=== PATIENT | male | born 1965 | race Caucasian/White ===

== ENCOUNTER 2016-09-25 10:39 | Emergency (ER) | payer MEDICARE, OTHER ==
[~2016-09-25] VITALS: Ht 172.7 cm; Wt 114.5 kg
[~2016-09-25 10:39] MED LIST: ASPI-1093 PO; ATEN25 PO; DSS100 PO; INSU100V12 SQ; LISI-662 PO; MULT-29 PO; OMEG1CAP76 PO; OMEP20 PO; PERCT PO; VITAD1000 PO
[2016-09-25] MEDS ORDERED: SITA25 PO (10:42)
[2016-09-25] MEDS ORDERED: METF500T4 PO (10:42)
[2016-09-25 10:51] LABS: GLUCOSE,POINT OF CARE 97 MG/DL (70-110)
[2016-09-25 11:13] LABS: BASOPHILS % (AUTO) 0.2 % (0.0-2.0); HEMOGLOBIN 13.1 g/dL (13.5-17.5); LYMPHOCYTES # (AUTO) 1.5 K/uL (1.0-4.8); LYMPHOCYTES % (AUTO) 17.3 % (22.0-44.0); MEAN CORPUSCULAR HEMOGLOBIN 31.3 pg (26.0-34.0); MEAN CORPUSCULAR HGB CONC 32.7 G/dL (31.0-37.0); MEAN CORPUSCULAR VOLUME 96 fL (80-100); MONOCYTES # (AUTO) 1.1 K/uL (0.1-1.0); MONOCYTES % (AUTO) 12.6 % (2.0-9.0); NEUTROPHILS # (AUTO) 5.9 K/uL (1.8-7.7); NEUTROPHILS % (AUTO) 66.9 % (40.0-70.0); PLATELET COUNT (AUTO) 241 K/uL (150-450); RED BLOOD CELL COUNT(AUTO) 4.18 MIL/uL (4.50-5.90); RED CELL DISTRIBUTION WIDTH 14.5 % (11.5-14.5); WHITE BLOOD COUNT (AUTO) 8.8 K/uL (4.5-11.0)
[2016-09-25 11:21] LABS: ANION GAP 9 mmol/L (8-16); CARBON DIOXIDE 28 mmol/L (22-29); CHLORIDE 101 mmol/L (98-107); CREATININE 0.68 mg/dL (0.60-1.30); POTASSIUM 4.1 mmol/L (3.5-5.1); SODIUM SERUM 138 mmol/L (136-145); UREA NITROGEN, BLOOD 12 mg/dL (7-18)
[2016-09-25 11:22] LABS: GLOMERULAR FILTR. RATE CALC > 60 mL/min (>60)
[2016-09-25 11:27] LABS: ALANINE AMINOTRANSFERASE 58 U/L (12-78); ALBUMIN 3.7 g/dL (3.4-5.0); ASPARTATE AMINOTRANSFERASE 33 U/L (15-37); BILIRUBIN,TOTAL 0.4 mg/dL (0.1-1.0); TOTAL PROTEIN, SERUM 9.7 g/dL (6.4-8.2)
[2016-09-25 11:49] VITALS: BP 128/78
== END 2016-09-25 12:25 | disposition home or self-care (01) ==
LOC: EMS 10:41
DX: K61.1 Rectal abscess (principal); F31.9 Bipolar disorder, unspecified; F17.210 Nicotine dependence, cigarettes, uncomplicated; I10 Essential (primary) hypertension; F20.9 Schizophrenia, unspecified; E78.00 Pure hypercholesterolemia, unspecified; E11.9 Type 2 diabetes mellitus without complications; J44.9 Chronic obstructive pulmonary disease, unspecified
CPT/HCPCS: 36415; 80053; 80307; 82962; 85025; 99284; G0480

== ENCOUNTER 2017-02-12 17:43 | Emergency (ER) | payer MEDICARE, OTHER ==
[~2017-02-12] VITALS: Ht 172.7 cm; Wt 111.8 kg
[~2017-02-12 17:43] MED LIST changes: -ASPI-1093 PO; -INSU100V12 SQ; +METF500T4 PO; -MULT-29 PO; -OMEG1CAP76 PO; -PERCT PO; +SITA25 PO; -VITAD1000 PO
[2017-02-12] MEDS ORDERED: ATOR10TA84 PO (17:47)
[2017-02-12] MEDS ORDERED: FLUP10 PO (17:47)
[2017-02-12] MEDS ORDERED: QUET200T PO (17:48)
[2017-02-12 17:57] LABS: GLUCOSE,POINT OF CARE 94 MG/DL (70-110)
[2017-02-12 18:13] LABS: BASOPHILS % (AUTO) 0.3 % (0.0-2.0); EOSINOPHILS % (AUTO) 5.9 % (1.0-6.0); HEMATOCRIT 36.1 % (41-53); HEMOGLOBIN 12.1 g/dL (13.5-17.5); LYMPHOCYTES # (AUTO) 1.6 K/uL (1.0-4.8); LYMPHOCYTES % (AUTO) 27.4 % (22.0-44.0); MEAN CORPUSCULAR HEMOGLOBIN 31.1 pg (26.0-34.0); MEAN CORPUSCULAR HGB CONC 33.5 G/dL (31.0-37.0); MEAN CORPUSCULAR VOLUME 93 fL (80-100); MONOCYTES # (AUTO) 0.9 K/uL (0.1-1.0); MONOCYTES % (AUTO) 16.3 % (2.0-9.0); NEUTROPHILS # (AUTO) 2.9 K/uL (1.8-7.7); NEUTROPHILS % (AUTO) 50.1 % (40.0-70.0); PLATELET COUNT (AUTO) 115 K/uL (150-450); RED BLOOD CELL COUNT(AUTO) 3.89 MIL/uL (4.50-5.90); RED CELL DISTRIBUTION WIDTH 14.2 % (11.5-14.5); WHITE BLOOD COUNT (AUTO) 5.7 K/uL (4.5-11.0)
[2017-02-12 18:23] LABS: ANION GAP 7 mmol/L (8-16); CALCIUM, TOTAL 8.4 mg/dL (8.8-10.5); CARBON DIOXIDE 28 mmol/L (22-29); CHLORIDE 106 mmol/L (98-107); CREATININE 0.72 mg/dL (0.60-1.30); GLOMERULAR FILTR. RATE CALC > 60 mL/min (>60); POTASSIUM 3.8 mmol/L (3.5-5.1); SODIUM SERUM 141 mmol/L (136-145); UREA NITROGEN, BLOOD 9 mg/dL (7-18)
[2017-02-12 18:29] LABS: ALANINE AMINOTRANSFERASE 31 U/L (12-78); ALBUMIN 3.6 g/dL (3.4-5.0); ASPARTATE AMINOTRANSFERASE 27 U/L (15-37); BILIRUBIN,TOTAL 0.3 mg/dL (0.1-1.0); TOTAL PROTEIN, SERUM 7.6 g/dL (6.4-8.2)
[2017-02-12 22:49] VITALS: BP 125/82
== END 2017-02-12 22:51 | disposition home or self-care (01) ==
LOC: EMS 17:46
DX: F41.9 Anxiety disorder, unspecified (principal); F25.9 Schizoaffective disorder, unspecified; F20.0 Paranoid schizophrenia; E11.9 Type 2 diabetes mellitus without complications; F31.9 Bipolar disorder, unspecified; J44.9 Chronic obstructive pulmonary disease, unspecified; E78.00 Pure hypercholesterolemia, unspecified; I10 Essential (primary) hypertension; F17.210 Nicotine dependence, cigarettes, uncomplicated; E66.9 Obesity, unspecified; Z68.37 Body mass index [BMI] 37.0-37.9, adult; Z76.0 Encounter for issue of repeat prescription
CPT/HCPCS: 36415; 80053; 80307; 82962; 85025; 99284; G0480

== ENCOUNTER 2017-02-26 02:55 | Emergency (ER) | payer MEDICARE, OTHER ==
[~2017-02-26] VITALS: Ht 172.7 cm; Wt 111.5 kg
[~2017-02-26 02:55] MED LIST changes: -ATEN25 PO; +ATOR10TA84 PO; +FLUP10 PO; -LISI-662 PO; +QUET200T PO; -SITA25 PO
[2017-02-26 03:12] LABS: GLUCOSE,POINT OF CARE 122 MG/DL (70-110)
[2017-02-26 03:34] LABS: BASOPHILS % (AUTO) 0.4 % (0.0-2.0); EOSINOPHILS % (AUTO) 10.1 % (1.0-6.0); HEMATOCRIT 33.5 % (41-53); HEMOGLOBIN 11.5 g/dL (13.5-17.5); LYMPHOCYTES # (AUTO) 1.1 K/uL (1.0-4.8); LYMPHOCYTES % (AUTO) 20.2 % (22.0-44.0); MEAN CORPUSCULAR HEMOGLOBIN 32.1 pg (26.0-34.0); MEAN CORPUSCULAR HGB CONC 34.3 G/dL (31.0-37.0); MEAN CORPUSCULAR VOLUME 94 fL (80-100); MONOCYTES # (AUTO) 0.9 K/uL (0.1-1.0); MONOCYTES % (AUTO) 15.3 % (2.0-9.0); PLATELET COUNT (AUTO) 111 K/uL (150-450); RED BLOOD CELL COUNT(AUTO) 3.58 MIL/uL (4.50-5.90); RED CELL DISTRIBUTION WIDTH 14.7 % (11.5-14.5); WHITE BLOOD COUNT (AUTO) 5.6 K/uL (4.5-11.0)
[2017-02-26 03:47] LABS: ANION GAP 10 mmol/L (8-16); CALCIUM, TOTAL 9.1 mg/dL (8.8-10.5); CARBON DIOXIDE 29 mmol/L (22-29); CHLORIDE 100 mmol/L (98-107); CREATININE 0.79 mg/dL (0.60-1.30); GLOMERULAR FILTR. RATE CALC > 60 mL/min (>60); POTASSIUM 4.1 mmol/L (3.5-5.1); SODIUM SERUM 139 mmol/L (136-145); UREA NITROGEN, BLOOD 8 mg/dL (7-18)
[2017-02-26 03:52] LABS: ALANINE AMINOTRANSFERASE 42 U/L (12-78); ALBUMIN 3.3 g/dL (3.4-5.0); ASPARTATE AMINOTRANSFERASE 25 U/L (15-37); BILIRUBIN,TOTAL 0.2 mg/dL (0.1-1.0); TOTAL PROTEIN, SERUM 7.7 g/dL (6.4-8.2)
[2017-02-26 05:24] VITALS: BP 116/72
== END 2017-02-26 05:53 | disposition home or self-care (01) ==
LOC: EMS 02:57
DX: G47.30 Sleep apnea, unspecified (principal); I10 Essential (primary) hypertension; F20.9 Schizophrenia, unspecified; E03.9 Hypothyroidism, unspecified; E11.9 Type 2 diabetes mellitus without complications; J44.9 Chronic obstructive pulmonary disease, unspecified; F32.9 Major depressive disorder, single episode, unspecified; F17.210 Nicotine dependence, cigarettes, uncomplicated; E66.9 Obesity, unspecified; E78.00 Pure hypercholesterolemia, unspecified
CPT/HCPCS: 36415; 71010; 80053; 82962; 84484; 85025; 93005; 99285; G0480

== ENCOUNTER 2017-04-05 14:20 | Inpatient (IN) | payer OTHER, MEDICAID ==
[~2017-04-05] VITALS: Ht 175.3 cm; Wt 109.0 kg
[2017-04-05] MEDS ORDERED: DIVA250T25 PO (14:30)
[2017-04-05] MEDS ORDERED: PANT40TA25 PO (14:30)
[2017-04-05] MEDS ORDERED: LISI-662 PO (14:30)
[2017-04-05] MEDS ORDERED: IBUP-2071 PO (14:30)
[2017-04-05] MEDS ORDERED: DOCU250C90 PO (14:30)
[2017-04-05] MEDS ORDERED: TRAZ-147 PO (14:30)
[2017-04-05 14:32] LABS: GLUCOSE,POINT OF CARE 169 MG/DL (70-110)
[2017-04-05 15:23] LABS: BASOPHILS % (AUTO) 0.6 % (0.0-2.0); EOSINOPHILS % (AUTO) 3.1 % (1.0-6.0); HEMATOCRIT 34.7 % (41-53); LYMPHOCYTES # (AUTO) 1.5 K/uL (1.0-4.8); LYMPHOCYTES % (AUTO) 21.1 % (22.0-44.0); MEAN CORPUSCULAR HEMOGLOBIN 32.7 pg (26.0-34.0); MEAN CORPUSCULAR HGB CONC 34.6 G/dL (31.0-37.0); MEAN CORPUSCULAR VOLUME 94 fL (80-100); MONOCYTES % (AUTO) 13.9 % (2.0-9.0); NEUTROPHILS # (AUTO) 4.5 K/uL (1.8-7.7); NEUTROPHILS % (AUTO) 61.3 % (40.0-70.0); PLATELET COUNT (AUTO) 198 K/uL (150-450); RED BLOOD CELL COUNT(AUTO) 3.67 MIL/uL (4.50-5.90); RED CELL DISTRIBUTION WIDTH 14.8 % (11.5-14.5); WHITE BLOOD COUNT (AUTO) 7.3 K/uL (4.5-11.0)
[2017-04-05 15:27] LABS: ANION GAP 11 mmol/L (8-16); CALCIUM, TOTAL 8.7 mg/dL (8.8-10.5); CARBON DIOXIDE 26 mmol/L (22-29); CHLORIDE 104 mmol/L (98-107); CREATININE 0.92 mg/dL (0.60-1.30); GLOMERULAR FILTR. RATE CALC > 60 mL/min (>60); POTASSIUM 3.9 mmol/L (3.5-5.1); SODIUM SERUM 141 mmol/L (136-145); UREA NITROGEN, BLOOD 17 mg/dL (7-18)
[2017-04-05 15:34] LABS: ALANINE AMINOTRANSFERASE 30 U/L (12-78); ALBUMIN 3.6 g/dL (3.4-5.0); ASPARTATE AMINOTRANSFERASE 20 U/L (15-37); BILIRUBIN,TOTAL 0.4 mg/dL (0.1-1.0); TOTAL PROTEIN, SERUM 8.4 g/dL (6.4-8.2); VALPROIC ACID 62 mcg/mL (50-100)
[2017-04-05] MEDS ORDERED: LORazepam 2 MG/ML VIAL IM ONE (17:00)
[2017-04-05] MEDS ORDERED: HALOPERIDOL LACTATE 5 MG/ML VIAL IM ONE (17:00)
[2017-04-05] MEDS ORDERED: DiphenhydrAMINE HCL 50 MG/ML VIAL IM ONE (17:00)
[2017-04-05 19:44] LABS: CHOL/HDL RATIO 3.2 (4.2-7.3); THYROID STIMULATING HORMONE 1.91 uIU/mL (0.36-3.74)
[2017-04-05] MEDS ORDERED: INFLUENZA VIRUS VACCINE QVS 2017-18 (3YR+)/PF 60 MCG/0.5 ML SYRINGE IM ONE (20:15)
[2017-04-05 20:16] VITALS: BP 139/89
[2017-04-05] MEDS ORDERED: DEXTROSE 50%-WATER 25 GM/50 ML SYRINGE IVP PRN (20:45)
[2017-04-05] MEDS: QUEtiapine FUMARATE 200 MG TABLET PO SCH (20:48)
[2017-04-05] MEDS: DIVALPROEX SODIUM 500 MG DR TABLET PO SCH (20:48)
[2017-04-05] MEDS: INSULIN ASPART 100 UNITS/ML SQ PRN (22:06)
[2017-04-05 22:12] LABS: GLUCOSE,POINT OF CARE 153 MG/DL (70-110)
[2017-04-06] MEDS: ZOLPIDEM TARTRATE 10 MG TABLET PO PRN (00:54)
[2017-04-06 01:06] VITALS: BP 114/71
[2017-04-06 06:33] LABS: GLUCOSE,POINT OF CARE 119 MG/DL (70-110)
[2017-04-06] MEDS: INSULIN ASPART 100 UNITS/ML SQ PRN (06:43)
[2017-04-06] MEDS: MetFORMIN HCL 500 MG TABLET PO SCH ×2 (06:54→17:20)
[2017-04-06] MEDS ORDERED: LOPERAMIDE HCL 2 MG CAPSULE PO PRN (07:45)
[2017-04-06] MEDS ORDERED: ONDANSETRON HCL 4 MG TABLET PO PRN (07:45)
[2017-04-06] MEDS ORDERED: ALBUTEROL SULFATE HFA 90 MCG/PUFF 8 GM INHALER IH PRN (07:45)
[2017-04-06] MEDS ORDERED: MAG HYDROX/AL HYDROX/SIMETH ES 30 ML SUSPENSION UDCUP PO PRN (07:45)
[2017-04-06] MEDS ORDERED: BENZOCAINE/MENTHOL LOZENGE MM PRN (07:45)
[2017-04-06] MEDS ORDERED: ACETAMINOPHEN 325 MG TABLET PO PRN (07:45)
[2017-04-06] MEDS ORDERED: BACITRACIN 28.4 GM OINTMENT TP PRN (07:45)
[2017-04-06] MEDS ORDERED: PETROLATUM,WHITE 71 GM JELLY TP PRN (07:45)
[2017-04-06] MEDS ORDERED: MAGNESIUM HYDROXIDE SUSPENSION 30 ML UDCUP PO PRN (07:45)
[2017-04-06] MEDS ORDERED: CloNIDine HCL 0.1 MG TABLET PO PRN (07:45)
[2017-04-06] MEDS ORDERED: IBUPROFEN 600 MG TABLET PO PRN (07:45)
[2017-04-06 08:38] VITALS: BP 120/70
[2017-04-06] MEDS: DOCUSATE SODIUM 250 MG CAPSULE PO SCH (08:38)
[2017-04-06] MEDS: LISINOPRIL 20 MG TABLET PO SCH (08:38)
[2017-04-06] MEDS: PANTOPRAZOLE SODIUM 40 MG DR TABLET PO SCH (08:38)
[2017-04-06] MEDS: DIVALPROEX SODIUM 500 MG DR TABLET PO SCH ×2 (08:38→21:21)
[2017-04-06] MEDS: ATORVASTATIN CALCIUM 10 MG TABLET PO SCH (08:39)
[2017-04-06] MEDS: HALOPERIDOL 5 MG TABLET PO PRN ×2 (08:39→16:06)
[2017-04-06] MEDS: LORazepam 2 MG TABLET PO PRN ×2 (08:39→16:06)
[2017-04-06 11:52] LABS: GLUCOSE,POINT OF CARE 81 MG/DL (70-110)
[2017-04-06 16:12] LABS: GLUCOSE,POINT OF CARE 94 MG/DL (70-110)
[2017-04-06 16:21] VITALS: BP 110/72
[2017-04-06 20:58] LABS: GLUCOSE,POINT OF CARE 129 MG/DL (70-110)
[2017-04-06] MEDS: QUEtiapine FUMARATE 200 MG TABLET PO SCH (21:21)
[2017-04-07 06:38] LABS: GLUCOSE,POINT OF CARE 103 MG/DL (70-110)
[2017-04-07] MEDS: MetFORMIN HCL 500 MG TABLET PO SCH ×2 (07:09→17:19)
[2017-04-07 08:00] VITALS: BP 145/96
[2017-04-07] MEDS: ATORVASTATIN CALCIUM 10 MG TABLET PO SCH (08:08)
[2017-04-07] MEDS: PANTOPRAZOLE SODIUM 40 MG DR TABLET PO SCH (08:08)
[2017-04-07] MEDS: LISINOPRIL 20 MG TABLET PO SCH (08:08)
[2017-04-07] MEDS: DOCUSATE SODIUM 250 MG CAPSULE PO SCH (08:08)
[2017-04-07] MEDS: DIVALPROEX SODIUM 500 MG DR TABLET PO SCH ×2 (08:08→20:11)
[2017-04-07 11:48] LABS: GLUCOSE,POINT OF CARE 111 MG/DL (70-110)
[2017-04-07 17:12] LABS: GLUCOSE,POINT OF CARE 108 MG/DL (70-110)
[2017-04-07] MEDS: PALIPERIDONE 6 MG ER TABLET PO SCH (20:12)
[2017-04-07 20:25] VITALS: BP 136/86
[2017-04-07] MEDS: ZOLPIDEM TARTRATE 10 MG TABLET PO PRN (20:53)
[2017-04-08] MEDS: LORazepam 2 MG TABLET PO PRN (01:04)
[2017-04-08] MEDS: HALOPERIDOL 5 MG TABLET PO PRN (01:04)
[2017-04-08 05:53] LABS: GLUCOSE,POINT OF CARE 104 MG/DL (70-110)
[2017-04-08 05:57] VITALS: BP 109/64
[2017-04-08] MEDS: MetFORMIN HCL 500 MG TABLET PO SCH ×2 (06:56→18:49)
[2017-04-08] MEDS: DIVALPROEX SODIUM 500 MG DR TABLET PO SCH ×2 (08:06→21:02)
[2017-04-08] MEDS: ATORVASTATIN CALCIUM 10 MG TABLET PO SCH (08:06)
[2017-04-08] MEDS: DOCUSATE SODIUM 250 MG CAPSULE PO SCH (08:06)
[2017-04-08] MEDS: PANTOPRAZOLE SODIUM 40 MG DR TABLET PO SCH (08:06)
[2017-04-08] MEDS: LISINOPRIL 20 MG TABLET PO SCH (08:06)
[2017-04-08 08:31] VITALS: BP 127/78
[2017-04-08 11:52] LABS: GLUCOSE,POINT OF CARE 166 MG/DL (70-110)
[2017-04-08] MEDS: INSULIN ASPART 100 UNITS/ML SQ PRN (11:52)
[2017-04-08 16:00] VITALS: BP 121/78
[2017-04-08 16:48] LABS: GLUCOSE,POINT OF CARE 134 MG/DL (70-110)
[2017-04-08] MEDS: PALIPERIDONE 6 MG ER TABLET PO SCH (21:02)
[2017-04-08 21:23] LABS: GLUCOSE,POINT OF CARE 98 MG/DL (70-110)
[2017-04-09 06:02] LABS: GLUCOSE,POINT OF CARE 110 MG/DL (70-110)
[2017-04-09] MEDS: MetFORMIN HCL 500 MG TABLET PO SCH ×2 (06:33→17:04)
[2017-04-09 07:06] VITALS: BP 123/74
[2017-04-09] MEDS: DOCUSATE SODIUM 250 MG CAPSULE PO SCH (08:17)
[2017-04-09] MEDS: PALIPERIDONE 6 MG ER TABLET PO SCH (08:17)
[2017-04-09] MEDS: ATORVASTATIN CALCIUM 10 MG TABLET PO SCH (08:17)
[2017-04-09] MEDS: PANTOPRAZOLE SODIUM 40 MG DR TABLET PO SCH (08:17)
[2017-04-09] MEDS: LISINOPRIL 20 MG TABLET PO SCH (08:17)
[2017-04-09] MEDS: DIVALPROEX SODIUM 500 MG DR TABLET PO SCH ×2 (08:18→20:16)
[2017-04-09 08:37] VITALS: BP 146/80
[2017-04-09 12:02] LABS: GLUCOSE,POINT OF CARE 120 MG/DL (70-110)
[2017-04-09] MEDS: PALIPERIDONE PALMITATE 234 MG/1.5 ML SYRINGE IM SCH ×2 (16:16→16:19)
[2017-04-09 16:17] LABS: GLUCOSE,POINT OF CARE 135 MG/DL (70-110)
[2017-04-09 16:30] VITALS: BP 126/72
[2017-04-09 20:03] LABS: GLUCOSE,POINT OF CARE 142 MG/DL (70-110)
[2017-04-09] MEDS: INSULIN ASPART 100 UNITS/ML SQ PRN (20:17)
[2017-04-10 04:26] VITALS: BP 119/69
[2017-04-10 06:03] LABS: GLUCOSE,POINT OF CARE 116 MG/DL (70-110)
[2017-04-10] MEDS: INSULIN ASPART 100 UNITS/ML SQ PRN (06:45)
[2017-04-10] MEDS: MetFORMIN HCL 500 MG TABLET PO SCH ×2 (06:47→16:40)
[2017-04-10] MEDS: LISINOPRIL 20 MG TABLET PO SCH (08:08)
[2017-04-10] MEDS: DOCUSATE SODIUM 250 MG CAPSULE PO SCH (08:08)
[2017-04-10] MEDS: DIVALPROEX SODIUM 500 MG DR TABLET PO SCH (08:09)
[2017-04-10] MEDS: ATORVASTATIN CALCIUM 10 MG TABLET PO SCH (08:09)
[2017-04-10] MEDS: PANTOPRAZOLE SODIUM 40 MG DR TABLET PO SCH (08:09)
[2017-04-10 08:30] VITALS: BP 129/77
[2017-04-10] MEDS ORDERED: PALI234D IM (10:32)
[2017-04-10] MEDS ORDERED: PALI6 PO (10:41)
[2017-04-10 11:58] LABS: GLUCOSE,POINT OF CARE 103 MG/DL (70-110)
[2017-04-10 17:48] LABS: GLUCOSE,POINT OF CARE 110 MG/DL (70-110)
== END 2017-04-10 18:00 | disposition home or self-care (01) | DRG 885 ==
LOC: EMS 14:21 → 3EC 17:38
PROVIDERS: ADMIT Psychiatry & Neurology Psychiatry; ATTEND Psychiatry & Neurology Psychiatry
DX: F25.9 Schizoaffective disorder, unspecified (principal); R45.851 Suicidal ideations; F22 Delusional disorders; K74.60 Unspecified cirrhosis of liver; E11.9 Type 2 diabetes mellitus without complications; R45.850 Homicidal ideations; E03.9 Hypothyroidism, unspecified; D64.9 Anemia, unspecified; E55.9 Vitamin D deficiency, unspecified; E66.9 Obesity, unspecified; E78.5 Hyperlipidemia, unspecified; F17.200 Nicotine dependence, unspecified, uncomplicated; G47.33 Obstructive sleep apnea (adult) (pediatric); K80.20 Calculus of gallbladder without cholecystitis without obstruction; K21.9 Gastro-esophageal reflux disease without esophagitis; J44.9 Chronic obstructive pulmonary disease, unspecified; I10 Essential (primary) hypertension; Z71.6 Tobacco abuse counseling; Z79.1 Long term (current) use of non-steroidal anti-inflammatories (NSAID); Z68.35 Body mass index [BMI] 35.0-35.9, adult; Z28.21 Immunization not carried out because of patient refusal; Z79.51 Long term (current) use of inhaled steroids; Z79.84 Long term (current) use of oral hypoglycemic drugs
CPT/HCPCS: 82962; 84439; 84443; 94660; 96372; 99285; G0480; J1200; J1630; J2060

== ENCOUNTER 2017-04-23 12:23 | Inpatient (IN) | payer MEDICARE, MEDICAID ==
[~2017-04-23 12:23] MED LIST changes: +DIVA250T25 PO; +DOCU250C90 PO; -DSS100 PO; -FLUP10 PO; +LISI-662 PO; -OMEP20 PO; +PALI234D IM; +PANT40TA25 PO; -QUET200T PO
[2017-04-23 12:30] VITALS: BP 111/57
[2017-04-23] MEDS ORDERED: HALOPERIDOL 5 MG TABLET PO PRN (13:00)
[2017-04-23] MEDS ORDERED: LORazepam 2 MG TABLET PO PRN (13:00)
[2017-04-23] MEDS ORDERED: PNEUMOCOCCAL VACCINE POLYVALENT 0.5 ML VIAL [PPSV23] IM ONE (13:30)
[2017-04-23 14:43] VITALS: BP 119/73
[2017-04-23] MEDS ORDERED: DIVA500T35 PO (16:25)
[2017-04-23 16:31] VITALS: BP 121/76
[2017-04-23] MEDS ORDERED: INFLUENZA VIRUS VACCINE QVS 2017-18 (3YR+)/PF 60 MCG/0.5 ML SYRINGE IM ONE (17:15)
[2017-04-23] MEDS: BENZTROPINE MESYLATE 1 MG TABLET PO SCH (17:23)
[2017-04-23] MEDS: PROPRANOLOL HCL 10 MG TABLET PO SCH (17:23)
[2017-04-23] MEDS: ZOLPIDEM TARTRATE 10 MG TABLET PO PRN (20:42)
[2017-04-23] MEDS: DIVALPROEX SODIUM 500 MG DR TABLET PO SCH (20:42)
[2017-04-24 06:30] VITALS: BP 116/79
[2017-04-24 07:16] LABS: BASOPHILS # (AUTO) 0.04 K/uL (0.00-0.20); BASOPHILS % (AUTO) 0.5 % (0.0-2.0); EOSINOPHILS # (AUTO) 0.33 K/uL (0.00-0.70); EOSINOPHILS % (AUTO) 5.01 % (1.0-6.0); HEMATOCRIT 33.7 % (41-53); HEMOGLOBIN 11.7 g/dL (13.5-17.5); LYMPHOCYTES # (AUTO) 1.7 K/uL (1.0-4.8); LYMPHOCYTES % (AUTO) 25.5 % (22.0-44.0); MEAN CORPUSCULAR HEMOGLOBIN 32.8 pg (26.0-34.0); MEAN CORPUSCULAR HGB CONC 34.7 G/dL (31.0-37.0); MEAN CORPUSCULAR VOLUME 94 fL (80-100); MONOCYTES # (AUTO) 0.8 K/uL (0.1-1.0); NEUTROPHILS # (AUTO) 3.8 K/uL (1.8-7.7); PLATELET COUNT (AUTO) 135 K/uL (150-450); RED BLOOD CELL COUNT(AUTO) 3.57 MIL/uL (4.50-5.90); RED CELL DISTRIBUTION WIDTH 14.9 % (11.5-14.5); WHITE BLOOD COUNT (AUTO) 6.7 K/uL (4.5-11.0)
[2017-04-24] MEDS ORDERED: DEXTROSE 50%-WATER 25 GM/50 ML SYRINGE IVP PRN (07:30)
[2017-04-24] MEDS ORDERED: ONDANSETRON HCL 4 MG TABLET PO PRN (07:30)
[2017-04-24] MEDS ORDERED: INSULIN ASPART 100 UNITS/ML SQ PRN (07:30)
[2017-04-24] MEDS ORDERED: CloNIDine HCL 0.1 MG TABLET PO PRN (07:30)
[2017-04-24] MEDS ORDERED: PETROLATUM,WHITE 71 GM JELLY TP PRN (07:30)
[2017-04-24] MEDS ORDERED: BENZOCAINE/MENTHOL LOZENGE MM PRN (07:30)
[2017-04-24] MEDS ORDERED: ACETAMINOPHEN 325 MG TABLET PO PRN (07:30)
[2017-04-24] MEDS ORDERED: IBUPROFEN 600 MG TABLET PO PRN (07:30)
[2017-04-24] MEDS ORDERED: MAGNESIUM HYDROXIDE SUSPENSION 30 ML UDCUP PO PRN (07:30)
[2017-04-24] MEDS ORDERED: BACITRACIN 28.4 GM OINTMENT TP PRN (07:30)
[2017-04-24] MEDS ORDERED: LOPERAMIDE HCL 2 MG CAPSULE PO PRN (07:30)
[2017-04-24] MEDS ORDERED: MAG HYDROX/AL HYDROX/SIMETH ES 30 ML SUSPENSION UDCUP PO PRN (07:30)
[2017-04-24] MEDS ORDERED: ALBUTEROL SULFATE HFA 90 MCG/PUFF 8 GM INHALER IH PRN (07:30)
[2017-04-24 07:40] LABS: ALANINE AMINOTRANSFERASE 50 U/L (12-78); ALBUMIN 3.4 g/dL (3.4-5.0); ANION GAP 7 mmol/L (8-16); ASPARTATE AMINOTRANSFERASE 24 U/L (15-37); BILIRUBIN,TOTAL 0.6 mg/dL (0.1-1.0); CALCIUM, TOTAL 8.6 mg/dL (8.8-10.5); CARBON DIOXIDE 28 mmol/L (22-29); CHLORIDE 100 mmol/L (98-107); CHOL/HDL RATIO 3.4 (4.2-7.3); CREATININE 0.73 mg/dL (0.60-1.30); GLOMERULAR FILTR. RATE CALC > 60 mL/min (>60); POTASSIUM 4.4 mmol/L (3.5-5.1); SODIUM SERUM 135 mmol/L (136-145); THYROID STIMULATING HORMONE 1.52 uIU/mL (0.36-3.74); TOTAL PROTEIN, SERUM 7.6 g/dL (6.4-8.2); UREA NITROGEN, BLOOD 17 mg/dL (7-18); VALPROIC ACID 44 mcg/mL (50-100)
[2017-04-24 08:30] VITALS: BP 130/66
[2017-04-24] MEDS: CHOLECALCIFEROL (VIT D3) 1,000 UNITS TABLET PO SCH (08:39)
[2017-04-24] MEDS: BENZTROPINE MESYLATE 1 MG TABLET PO SCH ×2 (08:39→16:37)
[2017-04-24] MEDS: DIVALPROEX SODIUM 500 MG DR TABLET PO SCH ×2 (08:40→21:00)
[2017-04-24] MEDS: MetFORMIN HCL 500 MG TABLET PO SCH ×2 (08:40→16:37)
[2017-04-24] MEDS: DOCUSATE SODIUM 100 MG CAPSULE PO SCH (08:40)
[2017-04-24] MEDS: PROPRANOLOL HCL 10 MG TABLET PO SCH ×3 (08:40→16:36)
[2017-04-24] MEDS: OMEPRAZOLE 20 MG CAPSULE PO SCH (08:40)
[2017-04-24 17:30] VITALS: BP 130/61
[2017-04-24 18:12] LABS: GLUCOSE,POINT OF CARE 117 MG/DL (70-110)
[2017-04-24] MEDS ORDERED: BENZOCAINE/MENTHOL LOZENGE [8 LOZENGES/PACKET] MM PRN (21:15)
[2017-04-24 21:16] LABS: ADD UA MICROSCOPIC NO; APPEARANCE,URINE CLEAR (CLEAR); GLUCOSE, URINE (UA) NEGATIVE (NEGATIVE); KETONES,URINE NEGATIVE (NEGATIVE); LEUKOCYTE ESTERASE ,URINE NEGATIVE (NEGATIVE); OCCULT BLOOD,URINE NEGATIVE (NEGATIVE); PROTEIN,URINE NEGATIVE (NEGATIVE)
[2017-04-24] MEDS: ZOLPIDEM TARTRATE 10 MG TABLET PO PRN (21:56)
[2017-04-25 04:25] VITALS: BP 106/69
[2017-04-25 06:08] LABS: GLUCOSE,POINT OF CARE 102 MG/DL (70-110)
[2017-04-25 06:08] LABS: GLUCOSE,POINT OF CARE 86 MG/DL (70-110)
[2017-04-25] MEDS: MetFORMIN HCL 500 MG TABLET PO SCH ×2 (07:13→17:24)
[2017-04-25 08:00] VITALS: BP 125/69
[2017-04-25] MEDS: PROPRANOLOL HCL 10 MG TABLET PO SCH ×3 (08:50→17:24)
[2017-04-25] MEDS: DOCUSATE SODIUM 100 MG CAPSULE PO SCH (08:50)
[2017-04-25] MEDS: DIVALPROEX SODIUM 500 MG DR TABLET PO SCH ×2 (08:50→21:57)
[2017-04-25] MEDS: BENZTROPINE MESYLATE 1 MG TABLET PO SCH ×2 (08:50→17:24)
[2017-04-25] MEDS: OMEPRAZOLE 20 MG CAPSULE PO SCH (08:51)
[2017-04-25] MEDS: CHOLECALCIFEROL (VIT D3) 1,000 UNITS TABLET PO SCH (08:51)
[2017-04-25 16:30] VITALS: BP 121/79
[2017-04-25 17:17] LABS: GLUCOSE,POINT OF CARE 126 MG/DL (70-110)
[2017-04-25] MEDS: ZOLPIDEM TARTRATE 10 MG TABLET PO PRN (21:57)
[2017-04-26 06:35] LABS: GLUCOSE,POINT OF CARE 140 MG/DL (70-110)
[2017-04-26] MEDS: MetFORMIN HCL 500 MG TABLET PO SCH (06:58)
[2017-04-26 07:40] LABS: CHOL/HDL RATIO 3.1 (4.2-7.3); THYROID STIMULATING HORMONE 2.94 uIU/mL (0.36-3.74)
[2017-04-26] MEDS: PROPRANOLOL HCL 10 MG TABLET PO SCH ×2 (08:58→12:33)
[2017-04-26] MEDS: DOCUSATE SODIUM 100 MG CAPSULE PO SCH (08:58)
[2017-04-26] MEDS: CHOLECALCIFEROL (VIT D3) 1,000 UNITS TABLET PO SCH (08:58)
[2017-04-26] MEDS: BENZTROPINE MESYLATE 1 MG TABLET PO SCH (08:58)
[2017-04-26] MEDS: DIVALPROEX SODIUM 500 MG DR TABLET PO SCH (08:58)
[2017-04-26] MEDS: OMEPRAZOLE 20 MG CAPSULE PO SCH (08:58)
[2017-04-26] MEDS ORDERED: BENZ1TAB10 PO (10:18)
[2017-04-26] MEDS ORDERED: DSS100 PO (10:22)
[2017-04-26] MEDS ORDERED: VITAD1000 PO (10:22)
[2017-04-26] MEDS ORDERED: OMEP20 PO (10:22)
[2017-04-26] MEDS ORDERED: PROP10TA73 PO (10:23)
[2017-05-07] MEDS ORDERED: PALIPERIDONE PALMITATE 234 MG/1.5 ML SYRINGE IM SCH (09:00)
== END 2017-04-26 14:56 | disposition home or self-care (01) | DRG 885 ==
LOC: EDSTATUS 12:23 → 3EX 13:03
PROVIDERS: ADMIT Psychiatry & Neurology Psychiatry; ATTEND Psychiatry & Neurology Psychiatry
DX: F25.1 Schizoaffective disorder, depressive type (principal); E11.65 Type 2 diabetes mellitus with hyperglycemia; R45.851 Suicidal ideations; E55.9 Vitamin D deficiency, unspecified; E78.5 Hyperlipidemia, unspecified; F17.200 Nicotine dependence, unspecified, uncomplicated; G47.33 Obstructive sleep apnea (adult) (pediatric); I10 Essential (primary) hypertension; J44.9 Chronic obstructive pulmonary disease, unspecified; K21.9 Gastro-esophageal reflux disease without esophagitis; D64.9 Anemia, unspecified; Z71.6 Tobacco abuse counseling; Z79.899 Other long term (current) drug therapy
CPT/HCPCS: 80307; 82962; 83036; 84295; 84439; 84443; 87081; 94660

== ENCOUNTER 2017-07-12 13:52 | Inpatient (IN) | payer MEDICARE, MEDICAID ==
[~2017-07-12] VITALS: Ht 172.7 cm; Wt 115.2 kg
[~2017-07-12 13:52] MED LIST changes: -ATOR10TA84 PO; +BENZ1TAB10 PO; -DIVA250T25 PO; +DIVA500T35 PO; -DOCU250C90 PO; +DSS100 PO; -LISI-662 PO; +OMEP20 PO; -PANT40TA25 PO; +PROP10TA73 PO; +VITAD1000 PO
[2017-07-12 14:07] LABS: GLUCOSE,POINT OF CARE 329 MG/DL (70-110)
[2017-07-12 14:48] LABS: BASOPHILS % (AUTO) 0.5 % (0.0-2.0); EOSINOPHILS % (AUTO) 1.8 % (1.0-6.0); HEMATOCRIT 41.5 % (41-53); HEMOGLOBIN 14.2 g/dL (13.5-17.5); LYMPHOCYTES # (AUTO) 1.8 K/uL (1.0-4.8); LYMPHOCYTES % (AUTO) 21.2 % (22.0-44.0); MEAN CORPUSCULAR HEMOGLOBIN 32.2 pg (26.0-34.0); MEAN CORPUSCULAR HGB CONC 34.1 G/dL (31.0-37.0); MEAN CORPUSCULAR VOLUME 95 fL (80-100); MONOCYTES # (AUTO) 0.9 K/uL (0.1-1.0); MONOCYTES % (AUTO) 10.5 % (2.0-9.0); NEUTROPHILS # (AUTO) 5.6 K/uL (1.8-7.7); PLATELET COUNT (AUTO) 156 K/uL (150-450); RED BLOOD CELL COUNT(AUTO) 4.39 MIL/uL (4.50-5.90); RED CELL DISTRIBUTION WIDTH 13.3 % (11.5-14.5)
[2017-07-12 14:57] LABS: AMPHET/METH SCREEN,URINE NEGATIVE (NEGATIVE); BARBITURATE SCREEN, URINE NEGATIVE (NEGATIVE); BENZODIAZEPINES SCREEN,URINE NEGATIVE (NEGATIVE); CANNABINOID SCREEN,URINE NEGATIVE (NEGATIVE); COCAINE SCREEN,URINE NEGATIVE (NEGATIVE); METHADONE SCREEN, URINE NEGATIVE (NEGATIVE); OPIATE SCREEN,URINE NEGATIVE (NEGATIVE)
[2017-07-12 15:09] LABS: PHENCYCLIDINE SCREEN,URINE NEGATIVE (NEGATIVE)
[2017-07-12 15:12] LABS: ANION GAP 12 mmol/L (8-16); CALCIUM, TOTAL 8.8 mg/dL (8.8-10.5); CARBON DIOXIDE 24 mmol/L (22-29); CHLORIDE 97 mmol/L (98-107); CREATININE 0.76 mg/dL (0.60-1.30); GLOMERULAR FILTR. RATE CALC > 60 mL/min (>60); GLUCOSE,RANDOM 272 mg/dL (70-110); POTASSIUM 3.7 mmol/L (3.5-5.1); SODIUM SERUM 133 mmol/L (136-145); UREA NITROGEN, BLOOD 8 mg/dL (7-18)
[2017-07-12 15:13] LABS: SALICYLATE < 2.8 mg/dL (2.8-20.0)
[2017-07-12 15:18] LABS: ALANINE AMINOTRANSFERASE 183 U/L (12-78); ALBUMIN 3.8 g/dL (3.4-5.0); ALKALINE PHOSPHATASE 108 U/L (46-116); ASPARTATE AMINOTRANSFERASE 119 U/L (15-37); BILIRUBIN,TOTAL 0.5 mg/dL (0.1-1.0); TOTAL PROTEIN, SERUM 9.2 g/dL (6.4-8.2)
[2017-07-12 15:40] LABS: ACETAMINOPHEN < 2 mcg/mL (10-30); VALPROIC ACID < 3 mcg/mL (50-100)
[2017-07-12] MEDS ORDERED: HALOPERIDOL 5 MG TABLET PO PRN (16:45)
[2017-07-12] MEDS ORDERED: LORazepam 2 MG TABLET PO PRN (16:45)
[2017-07-12 17:07] LABS: GLUCOSE,POINT OF CARE 207 MG/DL (70-110)
[2017-07-12] MEDS ORDERED: INFLUENZA VIRUS VACCINE QVS 2017-18 (3YR+)/PF 60 MCG/0.5 ML SYRINGE IM ONE (17:45)
[2017-07-12] MEDS ORDERED: PNEUMOCOCCAL VACCINE POLYVALENT 0.5 ML VIAL [PPSV23] IM ONE (17:45)
[2017-07-12 18:50] VITALS: BP 147/92
[2017-07-12] MEDS: DIVALPROEX SODIUM 500 MG DR TABLET PO SCH (20:13)
[2017-07-12] MEDS ORDERED: DEXTROSE 50%-WATER 25 GM/50 ML SYRINGE IVP PRN (21:30)
[2017-07-12] MEDS ORDERED: BENZTROPINE MESYLATE 1 MG TABLET PO ONE (21:30)
[2017-07-12] MEDS: INSULIN ASPART 100 UNITS/ML SQ PRN (22:27)
[2017-07-12 22:37] LABS: GLUCOMETER DEV NAME(LOC) 3EI B; GLUCOSE,POINT OF CARE 287 MG/DL (70-110)
[2017-07-12] MEDS: ZOLPIDEM TARTRATE 10 MG TABLET PO PRN (22:52)
[2017-07-13 06:09] LABS: GLUCOMETER DEV NAME(LOC) 3EI B; GLUCOSE,POINT OF CARE 209 MG/DL (70-110)
[2017-07-13 06:21] VITALS: BP 141/74
[2017-07-13] MEDS: INSULIN ASPART 100 UNITS/ML SQ PRN ×2 (06:58→16:59)
[2017-07-13] MEDS: MetFORMIN HCL 500 MG TABLET PO SCH ×2 (07:05→17:37)
[2017-07-13] MEDS: OMEPRAZOLE 20 MG CAPSULE PO SCH (09:36)
[2017-07-13] MEDS: DOCUSATE SODIUM 100 MG CAPSULE PO SCH (09:36)
[2017-07-13] MEDS: CHOLECALCIFEROL (VIT D3) 1,000 UNITS TABLET PO SCH (09:36)
[2017-07-13] MEDS: PROPRANOLOL HCL 10 MG TABLET PO SCH ×3 (09:36→16:24)
[2017-07-13] MEDS: LEVOTHYROXINE SODIUM 25 MCG TABLET PO SCH (09:37)
[2017-07-13] MEDS: DIVALPROEX SODIUM 500 MG DR TABLET PO SCH ×2 (09:37→20:21)
[2017-07-13] MEDS: LISINOPRIL 10 MG TABLET PO SCH (09:51)
[2017-07-13 10:48] VITALS: BP 126/72
[2017-07-13 16:27] LABS: GLUCOMETER DEV NAME(LOC) 3EX 1; GLUCOSE,POINT OF CARE 275 MG/DL (70-110)
[2017-07-13 17:11] VITALS: BP 118/69
[2017-07-13] MEDS: ZOLPIDEM TARTRATE 10 MG TABLET PO PRN (20:36)
[2017-07-14 06:08] LABS: GLUCOMETER DEV NAME(LOC) 3EI B; GLUCOSE,POINT OF CARE 218 MG/DL (70-110)
[2017-07-14] MEDS: INSULIN ASPART 100 UNITS/ML SQ PRN ×3 (07:08→16:51)
[2017-07-14] MEDS: LEVOTHYROXINE SODIUM 25 MCG TABLET PO SCH (07:13)
[2017-07-14] MEDS: MetFORMIN HCL 500 MG TABLET PO SCH ×2 (07:13→17:29)
[2017-07-14 07:27] LABS: CHOL/HDL RATIO 5.5 (4.2-7.3)
[2017-07-14] MEDS: CHOLECALCIFEROL (VIT D3) 1,000 UNITS TABLET PO SCH (08:09)
[2017-07-14] MEDS: DIVALPROEX SODIUM 500 MG DR TABLET PO SCH ×2 (08:10→20:03)
[2017-07-14] MEDS: LISINOPRIL 10 MG TABLET PO SCH (08:10)
[2017-07-14] MEDS: OMEPRAZOLE 20 MG CAPSULE PO SCH (08:10)
[2017-07-14] MEDS: PROPRANOLOL HCL 10 MG TABLET PO SCH ×3 (08:10→17:04)
[2017-07-14] MEDS: DOCUSATE SODIUM 100 MG CAPSULE PO SCH (08:17)
[2017-07-14 09:42] VITALS: BP 138/85
[2017-07-14 11:33] LABS: GLUCOMETER DEV NAME(LOC) 3EX 1; GLUCOSE,POINT OF CARE 209 MG/DL (70-110)
[2017-07-14 16:37] LABS: GLUCOMETER DEV NAME(LOC) 3EX 1; GLUCOSE,POINT OF CARE 171 MG/DL (70-110)
[2017-07-14 18:59] VITALS: BP 123/68
[2017-07-14] MEDS: ZOLPIDEM TARTRATE 10 MG TABLET PO PRN (20:24)
[2017-07-15 05:44] LABS: GLUCOMETER DEV NAME(LOC) 3EI B; GLUCOSE,POINT OF CARE 179 MG/DL (70-110)
[2017-07-15] MEDS: INSULIN ASPART 100 UNITS/ML SQ PRN ×4 (06:40→21:06)
[2017-07-15] MEDS: LEVOTHYROXINE SODIUM 25 MCG TABLET PO SCH (06:50)
[2017-07-15] MEDS: MetFORMIN HCL 500 MG TABLET PO SCH ×2 (06:50→16:53)
[2017-07-15 06:56] VITALS: BP 122/79
[2017-07-15] MEDS: DIVALPROEX SODIUM 500 MG DR TABLET PO SCH ×2 (08:53→21:11)
[2017-07-15] MEDS: OMEPRAZOLE 20 MG CAPSULE PO SCH (08:53)
[2017-07-15] MEDS: PROPRANOLOL HCL 10 MG TABLET PO SCH ×3 (08:53→16:58)
[2017-07-15] MEDS: CHOLECALCIFEROL (VIT D3) 1,000 UNITS TABLET PO SCH (08:54)
[2017-07-15] MEDS: LISINOPRIL 10 MG TABLET PO SCH (08:55)
[2017-07-15] MEDS: DOCUSATE SODIUM 100 MG CAPSULE PO SCH (09:00)
[2017-07-15 10:03] VITALS: BP 127/72
[2017-07-15 11:38] LABS: GLUCOMETER DEV NAME(LOC) 3EX 1; GLUCOSE,POINT OF CARE 180 MG/DL (70-110)
[2017-07-15 16:58] VITALS: BP 119/85
[2017-07-15 16:58] LABS: GLUCOMETER DEV NAME(LOC) 3EX 1; GLUCOSE,POINT OF CARE 141 MG/DL (70-110)
[2017-07-15 20:48] LABS: GLUCOMETER DEV NAME(LOC) 3EX 1; GLUCOSE,POINT OF CARE 144 MG/DL (70-110)
[2017-07-15] MEDS ORDERED: IBUPROFEN 600 MG TABLET PO PRN (21:00)
[2017-07-15] MEDS ORDERED: ALBUTEROL SULFATE HFA 90 MCG/PUFF 8 GM INHALER IH PRN (21:00)
[2017-07-15] MEDS ORDERED: PETROLATUM,WHITE 71 GM JELLY TP PRN (21:00)
[2017-07-15] MEDS ORDERED: MAGNESIUM HYDROXIDE SUSPENSION 30 ML UDCUP PO PRN (21:00)
[2017-07-15] MEDS ORDERED: LOPERAMIDE HCL 2 MG CAPSULE PO PRN (21:00)
[2017-07-15] MEDS ORDERED: SODIUM CHLORIDE 1 GM TABLET PO ONE (21:00)
[2017-07-15] MEDS ORDERED: ONDANSETRON HCL 4 MG TABLET PO PRN (21:00)
[2017-07-15] MEDS ORDERED: MAG HYDROX/AL HYDROX/SIMETH ES 30 ML SUSPENSION UDCUP PO PRN (21:00)
[2017-07-15] MEDS ORDERED: ACETAMINOPHEN 325 MG TABLET PO PRN (21:00)
[2017-07-15] MEDS ORDERED: BENZOCAINE/MENTHOL LOZENGE MM PRN (21:00)
[2017-07-15] MEDS ORDERED: BACITRACIN 28.4 GM OINTMENT TP PRN (21:00)
[2017-07-15] MEDS: ZOLPIDEM TARTRATE 10 MG TABLET PO PRN (21:11)
[2017-07-16 06:04] LABS: GLUCOMETER DEV NAME(LOC) 3EX 1; GLUCOSE,POINT OF CARE 175 MG/DL (70-110)
[2017-07-16 06:39] LABS: HEMATOCRIT 39.6 % (41-53); HEMOGLOBIN 13.5 g/dL (13.5-17.5); MEAN CORPUSCULAR HEMOGLOBIN 32.2 pg (26.0-34.0); MEAN CORPUSCULAR HGB CONC 34.2 G/dL (31.0-37.0); MEAN CORPUSCULAR VOLUME 94 fL (80-100); PLATELET COUNT (AUTO) 141 K/uL (150-450); RED BLOOD CELL COUNT(AUTO) 4.21 MIL/uL (4.50-5.90); RED CELL DISTRIBUTION WIDTH 13.7 % (11.5-14.5)
[2017-07-16] MEDS: LEVOTHYROXINE SODIUM 25 MCG TABLET PO SCH (06:45)
[2017-07-16] MEDS: MetFORMIN HCL 500 MG TABLET PO SCH ×2 (06:46→17:18)
[2017-07-16] MEDS: INSULIN ASPART 100 UNITS/ML SQ PRN ×4 (06:47→21:08)
[2017-07-16 06:54] LABS: ANION GAP 8 mmol/L (8-16); CALCIUM, TOTAL 8.8 mg/dL (8.8-10.5); CARBON DIOXIDE 28 mmol/L (22-29); CHLORIDE 100 mmol/L (98-107); CREATININE 0.58 mg/dL (0.60-1.30); GLOMERULAR FILTR. RATE CALC > 60 mL/min (>60); GLUCOSE,RANDOM 163 mg/dL (70-110); PHOSPHORUS 4.3 mg/dL (2.5-4.9); POTASSIUM 3.9 mmol/L (3.5-5.1); SODIUM SERUM 136 mmol/L (136-145); UREA NITROGEN, BLOOD 10 mg/dL (7-18)
[2017-07-16] MEDS: CHOLECALCIFEROL (VIT D3) 1,000 UNITS TABLET PO SCH (08:26)
[2017-07-16] MEDS: DIVALPROEX SODIUM 500 MG DR TABLET PO SCH ×2 (08:26→20:13)
[2017-07-16] MEDS: LISINOPRIL 10 MG TABLET PO SCH (08:27)
[2017-07-16] MEDS: OMEPRAZOLE 20 MG CAPSULE PO SCH (08:27)
[2017-07-16] MEDS: DOCUSATE SODIUM 100 MG CAPSULE PO SCH (08:27)
[2017-07-16] MEDS: PROPRANOLOL HCL 10 MG TABLET PO SCH ×3 (08:28→17:14)
[2017-07-16] MEDS: SIMVASTATIN 10 MG TABLET PO SCH (08:28)
[2017-07-16] MEDS ORDERED: DOCUSATE SODIUM 100 MG CAPSULE PO SCH (09:00)
[2017-07-16] MEDS ORDERED: OMEPRAZOLE 20 MG CAPSULE PO SCH (09:00)
[2017-07-16 09:13] LABS: BASOPHILS % (MANUAL) 1 % (0-2); EOSINOPHILS % (MANUAL) 3 % (1-6); LYMPHOCYTES % (MANUAL) 33 % (22-44); MONOCYTES % (MANUAL) 3 % (2-9); SEGMENTED NEUTROPHILS % 60 % (40-70)
[2017-07-16 09:27] VITALS: BP 132/78
[2017-07-16 11:38] LABS: GLUCOMETER DEV NAME(LOC) 3EX 1; GLUCOSE,POINT OF CARE 203 MG/DL (70-110)
[2017-07-16] MEDS: OMEGA-3/DHA/EPA/FISH OIL 500 MG CAPSULE PO SCH (12:34)
[2017-07-16 16:19] VITALS: BP 128/70
[2017-07-16 17:23] LABS: GLUCOMETER DEV NAME(LOC) 3EX 1; GLUCOSE,POINT OF CARE 218 MG/DL (70-110)
[2017-07-16 20:22] LABS: GLUCOMETER DEV NAME(LOC) 3EX 1; GLUCOSE,POINT OF CARE 183 MG/DL (70-110)
[2017-07-16] MEDS: ZOLPIDEM TARTRATE 10 MG TABLET PO PRN (20:28)
[2017-07-17 05:33] LABS: GLUCOMETER DEV NAME(LOC) 3EI B; GLUCOSE,POINT OF CARE 156 MG/DL (70-110)
[2017-07-17] MEDS: LEVOTHYROXINE SODIUM 25 MCG TABLET PO SCH (06:52)
[2017-07-17] MEDS: INSULIN ASPART 100 UNITS/ML SQ PRN ×3 (06:55→11:44)
[2017-07-17] MEDS: MetFORMIN HCL 500 MG TABLET PO SCH (07:00)
[2017-07-17] MEDS: DIVALPROEX SODIUM 500 MG DR TABLET PO SCH (08:43)
[2017-07-17] MEDS: OMEPRAZOLE 20 MG CAPSULE PO SCH (08:43)
[2017-07-17] MEDS: OMEGA-3/DHA/EPA/FISH OIL 500 MG CAPSULE PO SCH (08:43)
[2017-07-17] MEDS: CHOLECALCIFEROL (VIT D3) 1,000 UNITS TABLET PO SCH (08:43)
[2017-07-17] MEDS: DOCUSATE SODIUM 100 MG CAPSULE PO SCH (08:43)
[2017-07-17] MEDS: PROPRANOLOL HCL 10 MG TABLET PO SCH ×2 (08:43→12:47)
[2017-07-17] MEDS: LISINOPRIL 10 MG TABLET PO SCH (08:44)
[2017-07-17] MEDS: SIMVASTATIN 10 MG TABLET PO SCH (08:44)
[2017-07-17] MEDS ORDERED: LEVO25TA9 PO (09:14)
[2017-07-17] MEDS ORDERED: SIMV-259 PO (09:14)
[2017-07-17] MEDS ORDERED: LISI-661 PO (09:15)
[2017-07-17] MEDS ORDERED: OMEG-50 PO (09:16)
[2017-07-17 09:29] VITALS: BP 144/74
[2017-07-17 11:28] LABS: GLUCOMETER DEV NAME(LOC) 3EX 1; GLUCOSE,POINT OF CARE 161 MG/DL (70-110)
[2017-08-10] MEDS ORDERED: PALIPERIDONE PALMITATE 234 MG/1.5 ML SYRINGE IM SCH (09:00)
== END 2017-07-17 15:10 | DRG 885 ==
LOC: EMS 13:55 → 3EX 17:16
PROVIDERS: ADMIT Psychiatry & Neurology Psychiatry; ATTEND Psychiatry & Neurology Psychiatry
PROC: 5A09357 Assistance with Respiratory Ventilation, Less than 24 Consecutive Hours, Continuous Positive Airway Pressure (ICD-10-PCS; principal; 2017-07-13)
PROC: 5A09357 Assistance with Respiratory Ventilation, Less than 24 Consecutive Hours, Continuous Positive Airway Pressure (ICD-10-PCS; 2017-07-14)
PROC: 5A09357 Assistance with Respiratory Ventilation, Less than 24 Consecutive Hours, Continuous Positive Airway Pressure (ICD-10-PCS; 2017-07-15)
PROC: 5A09357 Assistance with Respiratory Ventilation, Less than 24 Consecutive Hours, Continuous Positive Airway Pressure (ICD-10-PCS; 2017-07-16)
DX: F25.9 Schizoaffective disorder, unspecified (principal); E11.65 Type 2 diabetes mellitus with hyperglycemia; K74.60 Unspecified cirrhosis of liver; E03.9 Hypothyroidism, unspecified; E55.9 Vitamin D deficiency, unspecified; E66.9 Obesity, unspecified; E78.00 Pure hypercholesterolemia, unspecified; E78.5 Hyperlipidemia, unspecified; F17.200 Nicotine dependence, unspecified, uncomplicated; G47.33 Obstructive sleep apnea (adult) (pediatric); I10 Essential (primary) hypertension; J44.9 Chronic obstructive pulmonary disease, unspecified; K21.9 Gastro-esophageal reflux disease without esophagitis; K59.00 Constipation, unspecified; R74.0 Nonspecific elevation of levels of transaminase and lactic acid dehydrogenase [LDH]; F41.9 Anxiety disorder, unspecified; F31.9 Bipolar disorder, unspecified; Z71.6 Tobacco abuse counseling; Z79.899 Other long term (current) drug therapy; Z28.21 Immunization not carried out because of patient refusal
CPT/HCPCS: 80074; 82962; 83735; 84100; 84295; 85007; 94660; 99285; G0480; G0481

== ENCOUNTER → 2017-07-29 | Outpatient (CLI) | payer MEDICARE, MEDICAID, SELFPAY ==
[~2017-07-29] VITALS: Ht 172.7 cm; Wt 117.5 kg
[~2017-07-29] MED LIST changes: -BENZ1TAB10 PO; +LEVO25TA9 PO; +LISI-661 PO; +OMEG-50 PO; +SIMV-259 PO
[2017-07-29 13:17] VITALS: BP 123/90
== END | disposition home or self-care (01) ==
LOC: SRCNTR 12:49
PROVIDERS: ATTEND Internal Medicine
DX: G47.33 Obstructive sleep apnea (adult) (pediatric) (principal); E11.9 Type 2 diabetes mellitus without complications; I10 Essential (primary) hypertension; F25.9 Schizoaffective disorder, unspecified; J44.9 Chronic obstructive pulmonary disease, unspecified; Z87.891 Personal history of nicotine dependence
CPT/HCPCS: G0463

== ENCOUNTER 2017-12-19 17:47 | Inpatient (IN) | payer MEDICARE, MEDICAID ==
[~2017-12-19] VITALS: Ht 172.7 cm; Wt 118.0 kg
[~2017-12-19 17:47] MED LIST changes: +DIVA-78 PO; -DIVA500T35 PO; -METF500T4 PO; +METF500T6 PO
[2017-12-19] MEDS ORDERED: HALO5TAB2 PO (17:57)
[2017-12-19] MEDS ORDERED: SITA50 PO (17:57)
[2017-12-19] MEDS ORDERED: GLYB2.5 PO (17:57)
[2017-12-19] MEDS ORDERED: RISP3 PO (17:57)
[2017-12-19] MEDS ORDERED: LITH300C3 PO (17:57)
[2017-12-19 18:04] LABS: GLUCOSE,POINT OF CARE 467 MG/DL (70-110)
[2017-12-19] MEDS ORDERED: INSULIN REGULAR, HUMAN 100 UNITS/ML IVP ONE (18:45)
[2017-12-19] MEDS ORDERED: SODIUM CHLORIDE 0.9% 1,000 ML IV ONE (18:45)
[2017-12-19 18:59] LABS: BASOPHILS % (AUTO) 0.6 % (0.0-2.0); EOSINOPHILS % (AUTO) 3.1 % (1.0-6.0); HEMATOCRIT 30.9 % (41-53); HEMOGLOBIN 10.7 g/dL (13.5-17.5); LYMPHOCYTES # (AUTO) 0.7 K/uL (1.0-4.8); LYMPHOCYTES % (AUTO) 10.2 % (22.0-44.0); MEAN CORPUSCULAR HEMOGLOBIN 33.2 pg (26.0-34.0); MEAN CORPUSCULAR HGB CONC 34.6 G/dL (31.0-37.0); MEAN CORPUSCULAR VOLUME 96 fL (80-100); MONOCYTES # (AUTO) 0.8 K/uL (0.1-1.0); MONOCYTES % (AUTO) 11.9 % (2.0-9.0); NEUTROPHILS # (AUTO) 5.2 K/uL (1.8-7.7); NEUTROPHILS % (AUTO) 74.2 % (40.0-70.0); PLATELET COUNT (AUTO) 151 K/uL (150-450); RED BLOOD CELL COUNT(AUTO) 3.22 MIL/uL (4.50-5.90)
[2017-12-19 19:11] LABS: LITHIUM 0.22 mmol/L (0.60-1.20)
[2017-12-19 19:16] LABS: ALANINE AMINOTRANSFERASE 58 U/L (12-78); ALBUMIN 3.3 g/dL (3.4-5.0); ALKALINE PHOSPHATASE 108 U/L (46-116); ANION GAP 9 mmol/L (8-16); ASPARTATE AMINOTRANSFERASE 30 U/L (15-37); BILIRUBIN,TOTAL 0.2 mg/dL (0.1-1.0); CALCIUM, TOTAL 8.4 mg/dL (8.8-10.5); CARBON DIOXIDE 23 mmol/L (22-29); CHLORIDE 100 mmol/L (98-107); CREATININE 0.78 mg/dL (0.60-1.30); GLOMERULAR FILTR. RATE CALC > 60 mL/min (>60); POTASSIUM 3.7 mmol/L (3.5-5.1); SODIUM SERUM 132 mmol/L (136-145); TOTAL PROTEIN, SERUM 7.8 g/dL (6.4-8.2); UREA NITROGEN, BLOOD 5 mg/dL (7-18)
[2017-12-19 19:19] LABS: GLUCOSE,RANDOM 402 mg/dL (70-110)
[2017-12-19 19:22] LABS: AMPHET/METH SCREEN,URINE NEGATIVE (NEGATIVE); BARBITURATE SCREEN, URINE NEGATIVE (NEGATIVE); BENZODIAZEPINES SCREEN,URINE NEGATIVE (NEGATIVE); CANNABINOID SCREEN,URINE NEGATIVE (NEGATIVE); COCAINE SCREEN,URINE NEGATIVE (NEGATIVE); METHADONE SCREEN, URINE NEGATIVE (NEGATIVE); OPIATE SCREEN,URINE NEGATIVE (NEGATIVE)
[2017-12-19 19:25] LABS: PHENCYCLIDINE SCREEN,URINE NEGATIVE (NEGATIVE)
[2017-12-19 20:08] LABS: GLUCOSE,POINT OF CARE 279 MG/DL (70-110)
[2017-12-19 21:12] LABS: APPEARANCE,URINE CLEAR (CLEAR); BILIRUBIN,URINE NEGATIVE (NEGATIVE); GLUCOSE, URINE (UA) >=1000 mg/dL (NEGATIVE); KETONES,URINE NEGATIVE (NEGATIVE); LEUKOCYTE ESTERASE ,URINE NEGATIVE (NEGATIVE); NITRATE,URINE NEGATIVE (NEGATIVE); OCCULT BLOOD,URINE NEGATIVE (NEGATIVE); PROTEIN,URINE NEGATIVE (NEGATIVE); UROBILINOGEN,URINE 0.2 mg/dL (<=1.0)
[2017-12-19 21:42] LABS: BACTERIA,URINE None Seen /HPF (None Seen); RBC,URINE None Seen /HPF (0-2); SQUAMOUS EPITHELIAL CELL,UR Rare /LPF (None Seen); WBC,URINE 0-2 /HPF (0-5)
[2017-12-19] MEDS ORDERED: DiphenhydrAMINE HCL 25 MG CAPSULE PO ONE (22:30)
[2017-12-19] MEDS ORDERED: HALOPERIDOL 5 MG TABLET PO ONE (22:30)
[2017-12-19] MEDS ORDERED: LORazepam 2 MG TABLET PO ONE (22:30)
[2017-12-20 00:31] VITALS: BP 141/75
[2017-12-20] MEDS ORDERED: PNEUMOCOCCAL VACCINE POLYVALENT 0.5 ML VIAL [PPSV23] IM ONE (01:15)
[2017-12-20 05:58] LABS: GLUCOMETER DEV NAME(LOC) 3EI B; GLUCOSE,POINT OF CARE 199 MG/DL (70-110)
[2017-12-20] MEDS ORDERED: DEXTROSE 50%-WATER 25 GM/50 ML SYRINGE IVP PRN (06:30)
[2017-12-20] MEDS: INSULIN LISPRO 100 UNITS/ML SQ PRN ×4 (07:02→20:33)
[2017-12-20] MEDS: LEVOTHYROXINE SODIUM 25 MCG TABLET PO SCH (07:15)
[2017-12-20 08:45] VITALS: BP 117/68
[2017-12-20] MEDS: OMEPRAZOLE 20 MG CAPSULE PO SCH (09:26)
[2017-12-20] MEDS: DOCUSATE SODIUM 100 MG CAPSULE PO SCH (09:26)
[2017-12-20] MEDS: LISINOPRIL 10 MG TABLET PO SCH (09:26)
[2017-12-20] MEDS: SIMVASTATIN 10 MG TABLET PO SCH (09:27)
[2017-12-20] MEDS: SitaGLIPtin PHOSPHATE 50 MG TABLET PO SCH (09:27)
[2017-12-20] MEDS ORDERED: ONDANSETRON HCL 4 MG TABLET PO PRN (10:45)
[2017-12-20] MEDS ORDERED: MAG HYDROX/AL HYDROX/SIMETH ES 30 ML SUSPENSION UDCUP PO PRN (10:45)
[2017-12-20] MEDS ORDERED: LOPERAMIDE HCL 2 MG CAPSULE PO PRN (10:45)
[2017-12-20] MEDS ORDERED: CloNIDine HCL 0.1 MG TABLET PO PRN (10:45)
[2017-12-20] MEDS ORDERED: PETROLATUM,WHITE 71 GM JELLY TP PRN (10:45)
[2017-12-20] MEDS ORDERED: MAGNESIUM HYDROXIDE SUSPENSION 30 ML UDCUP PO PRN (10:45)
[2017-12-20] MEDS ORDERED: IBUPROFEN 400 MG TABLET PO PRN (10:45)
[2017-12-20] MEDS ORDERED: ALBUTEROL SULFATE HFA 90 MCG/PUFF 8 GM INHALER IH PRN (10:45)
[2017-12-20] MEDS ORDERED: ACETAMINOPHEN 325 MG TABLET PO PRN (10:45)
[2017-12-20] MEDS ORDERED: DOCUSATE SODIUM 100 MG CAPSULE PO PRN (10:45)
[2017-12-20 12:19] LABS: GLUCOMETER DEV NAME(LOC) 3EX 1; GLUCOSE,POINT OF CARE 223 MG/DL (70-110)
[2017-12-20] MEDS: GABAPENTIN 300 MG CAPSULE PO SCH (16:05)
[2017-12-20] MEDS: LamoTRIgine 25 MG TABLET PO SCH (16:13)
[2017-12-20 20:34] LABS: GLUCOMETER DEV NAME(LOC) 3EX 1; GLUCOSE,POINT OF CARE 274 MG/DL (70-110)
[2017-12-20 21:38] VITALS: BP 143/70
[2017-12-21 05:39] LABS: GLUCOMETER DEV NAME(LOC) 3EI B; GLUCOSE,POINT OF CARE 244 MG/DL (70-110)
[2017-12-21 06:28] VITALS: BP 112/68
[2017-12-21] MEDS: INSULIN LISPRO 100 UNITS/ML SQ PRN ×4 (07:18→20:31)
[2017-12-21] MEDS: LEVOTHYROXINE SODIUM 25 MCG TABLET PO SCH (07:21)
[2017-12-21 07:39] LABS: CHOL/HDL RATIO 2.9 (4.2-7.3); THYROID STIMULATING HORMONE 1.86 uIU/mL (0.36-3.74)
[2017-12-21 07:42] LABS: HEMOGLOBIN A1C 7.6 % (4.5-6.2)
[2017-12-21 07:44] LABS: % IRON SATURATION 18.1 % (30-44)
[2017-12-21] MEDS: SIMVASTATIN 10 MG TABLET PO SCH (08:30)
[2017-12-21] MEDS: DOCUSATE SODIUM 100 MG CAPSULE PO SCH (08:31)
[2017-12-21] MEDS: GABAPENTIN 300 MG CAPSULE PO SCH ×3 (08:31→16:06)
[2017-12-21] MEDS: OMEPRAZOLE 20 MG CAPSULE PO SCH (08:31)
[2017-12-21] MEDS: SitaGLIPtin PHOSPHATE 50 MG TABLET PO SCH (08:31)
[2017-12-21] MEDS: LISINOPRIL 10 MG TABLET PO SCH (08:31)
[2017-12-21] MEDS: LamoTRIgine 25 MG TABLET PO SCH ×2 (08:31→16:06)
[2017-12-21] MEDS: NICOTINE 14 MG/24 HOUR PATCH TD SCH (08:32)
[2017-12-21 08:45] VITALS: BP 158/98
[2017-12-21] MEDS ORDERED: PALIPERIDONE PALMITATE 234 MG/1.5 ML SYRINGE IM ONE (09:00)
[2017-12-21] MEDS ORDERED: SIMVASTATIN 10 MG TABLET PO SCH (09:00)
[2017-12-21 11:43] LABS: GLUCOMETER DEV NAME(LOC) 3EX 1; GLUCOSE,POINT OF CARE 233 MG/DL (70-110)
[2017-12-21] MEDS: LORazepam 2 MG TABLET PO PRN (12:33)
[2017-12-21 16:21] VITALS: BP 145/80
[2017-12-21 17:14] LABS: GLUCOMETER DEV NAME(LOC) 3EX 1; GLUCOSE,POINT OF CARE 195 MG/DL (70-110)
[2017-12-21 20:24] LABS: GLUCOMETER DEV NAME(LOC) 3EX 1; GLUCOSE,POINT OF CARE 272 MG/DL (70-110)
[2017-12-22] VITALS: BP 140/78
[2017-12-22 05:44] LABS: GLUCOMETER DEV NAME(LOC) 3EI B; GLUCOSE,POINT OF CARE 173 MG/DL (70-110)
[2017-12-22] MEDS: INSULIN LISPRO 100 UNITS/ML SQ PRN ×3 (07:10→21:27)
[2017-12-22] MEDS: LEVOTHYROXINE SODIUM 25 MCG TABLET PO SCH (07:18)
[2017-12-22 08:30] VITALS: BP 128/82
[2017-12-22] MEDS: GlyBURIDE 5 MG TABLET PO SCH (08:31)
[2017-12-22] MEDS: LamoTRIgine 25 MG TABLET PO SCH ×2 (08:36→16:15)
[2017-12-22] MEDS: GABAPENTIN 300 MG CAPSULE PO SCH ×3 (08:36→16:15)
[2017-12-22] MEDS: SitaGLIPtin PHOSPHATE 50 MG TABLET PO SCH (08:36)
[2017-12-22] MEDS: OMEPRAZOLE 20 MG CAPSULE PO SCH (08:36)
[2017-12-22] MEDS: LISINOPRIL 10 MG TABLET PO SCH (08:36)
[2017-12-22] MEDS: DOCUSATE SODIUM 100 MG CAPSULE PO SCH (08:36)
[2017-12-22] MEDS: SIMVASTATIN 10 MG TABLET PO SCH (08:37)
[2017-12-22] MEDS: NICOTINE 14 MG/24 HOUR PATCH TD SCH ×2 (08:37→09:00)
[2017-12-22 11:59] LABS: GLUCOMETER DEV NAME(LOC) 3EX 1; GLUCOSE,POINT OF CARE 143 MG/DL (70-110)
[2017-12-22] MEDS: LORazepam 2 MG TABLET PO PRN (12:55)
[2017-12-22] MEDS: HALOPERIDOL 5 MG TABLET PO PRN (16:38)
[2017-12-22 16:44] LABS: GLUCOMETER DEV NAME(LOC) 3EX 1; GLUCOSE,POINT OF CARE 122 MG/DL (70-110)
[2017-12-22 17:00] VITALS: BP 134/78
[2017-12-22 20:13] LABS: GLUCOMETER DEV NAME(LOC) 3EX 1; GLUCOSE,POINT OF CARE 229 MG/DL (70-110)
[2017-12-23 04:00] VITALS: BP 148/94
[2017-12-23] MEDS: HALOPERIDOL 5 MG TABLET PO PRN ×2 (04:52→16:23)
[2017-12-23 05:50] LABS: GLUCOMETER DEV NAME(LOC) 3EI B; GLUCOSE,POINT OF CARE 170 MG/DL (70-110)
[2017-12-23] MEDS: LEVOTHYROXINE SODIUM 25 MCG TABLET PO SCH (06:59)
[2017-12-23] MEDS: GlyBURIDE 5 MG TABLET PO SCH (07:00)
[2017-12-23] MEDS: INSULIN LISPRO 100 UNITS/ML SQ PRN ×3 (07:11→20:59)
[2017-12-23] MEDS: DOCUSATE SODIUM 100 MG CAPSULE PO SCH (08:03)
[2017-12-23] MEDS: GABAPENTIN 300 MG CAPSULE PO SCH ×3 (08:03→16:23)
[2017-12-23] MEDS: SitaGLIPtin PHOSPHATE 50 MG TABLET PO SCH (08:03)
[2017-12-23] MEDS: OMEPRAZOLE 20 MG CAPSULE PO SCH (08:03)
[2017-12-23] MEDS: LamoTRIgine 25 MG TABLET PO SCH ×2 (08:03→16:23)
[2017-12-23] MEDS: LISINOPRIL 10 MG TABLET PO SCH (08:05)
[2017-12-23] MEDS: SIMVASTATIN 10 MG TABLET PO SCH (08:05)
[2017-12-23 09:00] VITALS: BP 143/76
[2017-12-23 11:24] LABS: GLUCOMETER DEV NAME(LOC) 3EX 1; GLUCOSE,POINT OF CARE 141 MG/DL (70-110)
[2017-12-23] MEDS: LORazepam 2 MG TABLET PO PRN (16:23)
[2017-12-23 17:05] VITALS: BP 117/73
[2017-12-23 17:33] LABS: GLUCOMETER DEV NAME(LOC) 3EX 1; GLUCOSE,POINT OF CARE 121 MG/DL (70-110)
[2017-12-23 21:04] LABS: GLUCOMETER DEV NAME(LOC) 3EX 1; GLUCOSE,POINT OF CARE 152 MG/DL (70-110)
[2017-12-24 02:27] VITALS: BP 124/68
[2017-12-24 05:43] LABS: GLUCOMETER DEV NAME(LOC) 3EI B; GLUCOSE,POINT OF CARE 206 MG/DL (70-110)
[2017-12-24] MEDS: INSULIN LISPRO 100 UNITS/ML SQ PRN ×4 (07:22→20:43)
[2017-12-24] MEDS: LEVOTHYROXINE SODIUM 25 MCG TABLET PO SCH (07:22)
[2017-12-24] MEDS: DOCUSATE SODIUM 100 MG CAPSULE PO SCH (08:20)
[2017-12-24] MEDS: GlyBURIDE 5 MG TABLET PO SCH (08:20)
[2017-12-24] MEDS: LISINOPRIL 10 MG TABLET PO SCH (08:21)
[2017-12-24] MEDS: LamoTRIgine 25 MG TABLET PO SCH ×2 (08:21→16:57)
[2017-12-24] MEDS: GABAPENTIN 300 MG CAPSULE PO SCH ×3 (08:21→16:58)
[2017-12-24] MEDS: OMEPRAZOLE 20 MG CAPSULE PO SCH (08:21)
[2017-12-24] MEDS: SitaGLIPtin PHOSPHATE 50 MG TABLET PO SCH (08:21)
[2017-12-24] MEDS: SIMVASTATIN 10 MG TABLET PO SCH (08:22)
[2017-12-24 08:45] VITALS: BP 156/70
[2017-12-24 11:19] LABS: GLUCOMETER DEV NAME(LOC) 3EX 1; GLUCOSE,POINT OF CARE 212 MG/DL (70-110)
[2017-12-24 17:09] LABS: GLUCOMETER DEV NAME(LOC) 3EX 1; GLUCOSE,POINT OF CARE 181 MG/DL (70-110)
[2017-12-24 17:51] VITALS: BP 143/72
[2017-12-24] MEDS: HALOPERIDOL 5 MG TABLET PO PRN (20:11)
[2017-12-24] MEDS: LORazepam 2 MG TABLET PO PRN (20:11)
[2017-12-24 20:28] LABS: GLUCOMETER DEV NAME(LOC) 3EX 1; GLUCOSE,POINT OF CARE 263 MG/DL (70-110)
[2017-12-25 05:27] VITALS: BP 133/81
[2017-12-25 05:39] LABS: GLUCOMETER DEV NAME(LOC) 3EI B; GLUCOSE,POINT OF CARE 147 MG/DL (70-110)
[2017-12-25] MEDS: LEVOTHYROXINE SODIUM 25 MCG TABLET PO SCH (06:40)
[2017-12-25] MEDS: GlyBURIDE 5 MG TABLET PO SCH (06:41)
[2017-12-25] MEDS: INSULIN LISPRO 100 UNITS/ML SQ PRN ×4 (06:42→20:55)
[2017-12-25] MEDS: LamoTRIgine 25 MG TABLET PO SCH ×2 (08:03→16:39)
[2017-12-25] MEDS: SitaGLIPtin PHOSPHATE 50 MG TABLET PO SCH (08:03)
[2017-12-25] MEDS: OMEPRAZOLE 20 MG CAPSULE PO SCH (08:04)
[2017-12-25] MEDS: SIMVASTATIN 10 MG TABLET PO SCH (08:04)
[2017-12-25] MEDS: LISINOPRIL 10 MG TABLET PO SCH (08:04)
[2017-12-25] MEDS: GABAPENTIN 300 MG CAPSULE PO SCH ×3 (08:04→16:39)
[2017-12-25] MEDS: DOCUSATE SODIUM 100 MG CAPSULE PO SCH (08:05)
[2017-12-25 13:33] LABS: GLUCOMETER DEV NAME(LOC) 3EX 1; GLUCOSE,POINT OF CARE 163 MG/DL (70-110)
[2017-12-25 13:34] VITALS: BP 138/72
[2017-12-25 19:18] VITALS: BP 166/74
[2017-12-25] MEDS: LORazepam 2 MG TABLET PO PRN (20:11)
[2017-12-25] MEDS: HALOPERIDOL 5 MG TABLET PO PRN (20:11)
[2017-12-25 20:23] LABS: GLUCOMETER DEV NAME(LOC) 3EX 1; GLUCOSE,POINT OF CARE 157 MG/DL (70-110)
[2017-12-25 20:23] LABS: GLUCOMETER DEV NAME(LOC) 3EX 1; GLUCOSE,POINT OF CARE 163 MG/DL (70-110)
[2017-12-26 05:44] LABS: GLUCOMETER DEV NAME(LOC) 3EI B; GLUCOSE,POINT OF CARE 135 MG/DL (70-110)
[2017-12-26] MEDS: LEVOTHYROXINE SODIUM 25 MCG TABLET PO SCH (06:53)
[2017-12-26] MEDS: GlyBURIDE 5 MG TABLET PO SCH (06:53)
[2017-12-26] MEDS: SIMVASTATIN 10 MG TABLET PO SCH (08:06)
[2017-12-26] MEDS: LISINOPRIL 10 MG TABLET PO SCH (08:06)
[2017-12-26] MEDS: GABAPENTIN 300 MG CAPSULE PO SCH ×3 (08:06→16:34)
[2017-12-26] MEDS: OMEPRAZOLE 20 MG CAPSULE PO SCH (08:06)
[2017-12-26] MEDS: DOCUSATE SODIUM 100 MG CAPSULE PO SCH (08:06)
[2017-12-26] MEDS: SitaGLIPtin PHOSPHATE 50 MG TABLET PO SCH (08:06)
[2017-12-26] MEDS: LamoTRIgine 25 MG TABLET PO SCH ×2 (08:06→16:33)
[2017-12-26 08:59] VITALS: BP 116/70
[2017-12-26 11:29] LABS: GLUCOMETER DEV NAME(LOC) 3EX 1; GLUCOSE,POINT OF CARE 78 MG/DL (70-110)
[2017-12-26 16:44] LABS: GLUCOMETER DEV NAME(LOC) 3EX 1; GLUCOSE,POINT OF CARE 193 MG/DL (70-110)
[2017-12-26] MEDS: INSULIN LISPRO 100 UNITS/ML SQ PRN ×2 (17:31→21:03)
[2017-12-26 18:18] VITALS: BP 156/70
[2017-12-26] MEDS: HALOPERIDOL 5 MG TABLET PO PRN (19:03)
[2017-12-26] MEDS: LORazepam 2 MG TABLET PO PRN (19:03)
[2017-12-26 20:39] LABS: GLUCOMETER DEV NAME(LOC) 3EX 1; GLUCOSE,POINT OF CARE 144 MG/DL (70-110)
[2017-12-27 04:40] VITALS: BP 123/74
[2017-12-27] MEDS: LORazepam 2 MG TABLET PO PRN ×2 (04:40→19:20)
[2017-12-27 06:43] LABS: GLUCOMETER DEV NAME(LOC) 3EI B; GLUCOSE,POINT OF CARE 136 MG/DL (70-110)
[2017-12-27] MEDS: GlyBURIDE 5 MG TABLET PO SCH (07:13)
[2017-12-27] MEDS: LEVOTHYROXINE SODIUM 25 MCG TABLET PO SCH (07:13)
[2017-12-27] MEDS: DOCUSATE SODIUM 100 MG CAPSULE PO SCH (08:08)
[2017-12-27] MEDS: SIMVASTATIN 10 MG TABLET PO SCH (08:08)
[2017-12-27] MEDS: SitaGLIPtin PHOSPHATE 50 MG TABLET PO SCH (08:08)
[2017-12-27] MEDS: GABAPENTIN 300 MG CAPSULE PO SCH ×3 (08:08→16:37)
[2017-12-27] MEDS: OMEPRAZOLE 20 MG CAPSULE PO SCH (08:09)
[2017-12-27] MEDS: LISINOPRIL 10 MG TABLET PO SCH (08:09)
[2017-12-27] MEDS: LamoTRIgine 25 MG TABLET PO SCH ×2 (08:09→16:37)
[2017-12-27 09:06] VITALS: BP 118/65
[2017-12-27 18:04] LABS: GLUCOMETER DEV NAME(LOC) 3EX 1; GLUCOSE,POINT OF CARE 185 MG/DL (70-110)
[2017-12-27 19:13] VITALS: BP 126/69
[2017-12-27] MEDS: HALOPERIDOL 5 MG TABLET PO PRN (19:20)
[2017-12-27] MEDS: INSULIN LISPRO 100 UNITS/ML SQ PRN (23:01)
[2017-12-28 05:39] LABS: GLUCOMETER DEV NAME(LOC) 3EI B; GLUCOSE,POINT OF CARE 140 MG/DL (70-110)
[2017-12-28] MEDS: GlyBURIDE 5 MG TABLET PO SCH (06:57)
[2017-12-28] MEDS: LEVOTHYROXINE SODIUM 25 MCG TABLET PO SCH (06:57)
[2017-12-28 08:10] VITALS: BP 154/84
[2017-12-28] MEDS: DOCUSATE SODIUM 100 MG CAPSULE PO SCH (08:33)
[2017-12-28] MEDS: SitaGLIPtin PHOSPHATE 50 MG TABLET PO SCH (08:33)
[2017-12-28] MEDS: LamoTRIgine 25 MG TABLET PO SCH ×2 (08:33→16:57)
[2017-12-28] MEDS: SIMVASTATIN 10 MG TABLET PO SCH (08:34)
[2017-12-28] MEDS: LISINOPRIL 10 MG TABLET PO SCH (08:34)
[2017-12-28] MEDS: OMEPRAZOLE 20 MG CAPSULE PO SCH (08:34)
[2017-12-28] MEDS: GABAPENTIN 300 MG CAPSULE PO SCH ×3 (08:34→16:57)
[2017-12-28 11:23] LABS: GLUCOMETER DEV NAME(LOC) 3EX 1; GLUCOSE,POINT OF CARE 64 MG/DL (70-110)
[2017-12-28 18:20] VITALS: BP 115/74
[2017-12-28 18:24] LABS: GLUCOMETER DEV NAME(LOC) 3EX 1; GLUCOSE,POINT OF CARE 98 MG/DL (70-110)
[2017-12-28] MEDS: LORazepam 2 MG TABLET PO PRN (21:50)
[2017-12-28] MEDS: HALOPERIDOL 5 MG TABLET PO PRN (21:50)
[2017-12-28 22:58] LABS: GLUCOMETER DEV NAME(LOC) 3EI B; GLUCOSE,POINT OF CARE 191 MG/DL (70-110)
[2017-12-29 05:40] VITALS: BP 134/68
[2017-12-29 05:59] LABS: GLUCOMETER DEV NAME(LOC) 3EI B; GLUCOSE,POINT OF CARE 135 MG/DL (70-110)
[2017-12-29] MEDS: GlyBURIDE 5 MG TABLET PO SCH (06:57)
[2017-12-29] MEDS: LEVOTHYROXINE SODIUM 25 MCG TABLET PO SCH (06:57)
[2017-12-29 08:00] VITALS: BP 133/77
[2017-12-29] MEDS: DOCUSATE SODIUM 100 MG CAPSULE PO SCH (09:15)
[2017-12-29] MEDS: SIMVASTATIN 10 MG TABLET PO SCH (09:16)
[2017-12-29] MEDS: LISINOPRIL 10 MG TABLET PO SCH (09:16)
[2017-12-29] MEDS: HALOPERIDOL 5 MG TABLET PO PRN ×2 (09:16→14:47)
[2017-12-29] MEDS: LamoTRIgine 25 MG TABLET PO SCH ×2 (09:16→18:17)
[2017-12-29] MEDS: GABAPENTIN 300 MG CAPSULE PO SCH ×3 (09:16→18:17)
[2017-12-29] MEDS: SitaGLIPtin PHOSPHATE 50 MG TABLET PO SCH (09:16)
[2017-12-29] MEDS: OMEPRAZOLE 20 MG CAPSULE PO SCH (09:16)
[2017-12-29] MEDS: LORazepam 2 MG TABLET PO PRN ×2 (09:16→14:47)
[2017-12-29 11:54] LABS: GLUCOMETER DEV NAME(LOC) 3EX 1; GLUCOSE,POINT OF CARE 80 MG/DL (70-110)
[2017-12-29] MEDS ORDERED: LORazepam 2 MG/ML VIAL IM ONE (15:00)
[2017-12-29] MEDS ORDERED: HALOPERIDOL LACTATE 5 MG/ML VIAL IM ONE (15:00)
[2017-12-29] MEDS ORDERED: DiphenhydrAMINE HCL 50 MG/ML VIAL IM ONE (15:00)
[2017-12-30] MEDS: GlyBURIDE 5 MG TABLET PO SCH (07:22)
[2017-12-30] MEDS: LEVOTHYROXINE SODIUM 25 MCG TABLET PO SCH (07:22)
[2017-12-30] MEDS: GABAPENTIN 300 MG CAPSULE PO SCH ×3 (08:08→16:23)
[2017-12-30] MEDS: LamoTRIgine 25 MG TABLET PO SCH ×2 (08:08→16:22)
[2017-12-30] MEDS: SitaGLIPtin PHOSPHATE 50 MG TABLET PO SCH (08:08)
[2017-12-30] MEDS: DOCUSATE SODIUM 100 MG CAPSULE PO SCH (08:08)
[2017-12-30] MEDS: SIMVASTATIN 10 MG TABLET PO SCH (08:09)
[2017-12-30] MEDS: LISINOPRIL 10 MG TABLET PO SCH (08:09)
[2017-12-30] MEDS: OMEPRAZOLE 20 MG CAPSULE PO SCH (08:09)
[2017-12-30 10:17] VITALS: BP 162/102
[2017-12-30] MEDS: HALOPERIDOL 5 MG TABLET PO PRN ×2 (11:17→18:04)
[2017-12-30] MEDS: LORazepam 2 MG TABLET PO PRN ×2 (11:17→20:53)
[2017-12-30 11:23] LABS: GLUCOMETER DEV NAME(LOC) 3EX 1; GLUCOSE,POINT OF CARE 93 MG/DL (70-110)
[2017-12-30 16:22] VITALS: BP 122/65
[2017-12-30 16:34] LABS: GLUCOMETER DEV NAME(LOC) 3EX 1; GLUCOSE,POINT OF CARE 140 MG/DL (70-110)
[2017-12-30] MEDS: INSULIN LISPRO 100 UNITS/ML SQ PRN (20:17)
[2017-12-30 20:18] LABS: GLUCOMETER DEV NAME(LOC) 3EX 1; GLUCOSE,POINT OF CARE 193 MG/DL (70-110)
[2017-12-30] MEDS: ZOLPIDEM TARTRATE 10 MG TABLET PO PRN (20:53)
[2017-12-31 02:58] VITALS: BP 134/78
[2017-12-31 06:35] LABS: GLUCOMETER DEV NAME(LOC) 3EI B; GLUCOSE,POINT OF CARE 101 MG/DL (70-110)
[2017-12-31] MEDS: GlyBURIDE 5 MG TABLET PO SCH (07:19)
[2017-12-31] MEDS: LEVOTHYROXINE SODIUM 25 MCG TABLET PO SCH (07:19)
[2017-12-31] MEDS: SitaGLIPtin PHOSPHATE 50 MG TABLET PO SCH (08:31)
[2017-12-31] MEDS: LISINOPRIL 10 MG TABLET PO SCH (08:31)
[2017-12-31] MEDS: LamoTRIgine 25 MG TABLET PO SCH ×2 (08:32→16:10)
[2017-12-31] MEDS: SIMVASTATIN 10 MG TABLET PO SCH (08:32)
[2017-12-31] MEDS: DOCUSATE SODIUM 100 MG CAPSULE PO SCH (08:32)
[2017-12-31] MEDS: GABAPENTIN 300 MG CAPSULE PO SCH ×3 (08:32→16:10)
[2017-12-31] MEDS: OMEPRAZOLE 20 MG CAPSULE PO SCH (08:32)
[2017-12-31] MEDS: HALOPERIDOL 5 MG TABLET PO PRN (08:37)
[2017-12-31] MEDS: LORazepam 2 MG TABLET PO PRN (08:37)
[2017-12-31 09:40] VITALS: BP 152/99
[2017-12-31 11:19] LABS: GLUCOMETER DEV NAME(LOC) 3EX 1; GLUCOSE,POINT OF CARE 65 MG/DL (70-110)
[2017-12-31 11:48] LABS: GLUCOMETER DEV NAME(LOC) 3EX 1; GLUCOSE,POINT OF CARE 92 MG/DL (70-110)
[2017-12-31 16:18] LABS: GLUCOMETER DEV NAME(LOC) 3EX 1; GLUCOSE,POINT OF CARE 153 MG/DL (70-110)
[2017-12-31 17:00] VITALS: BP 125/70
[2017-12-31] MEDS: INSULIN LISPRO 100 UNITS/ML SQ PRN ×2 (17:28→20:46)
[2017-12-31 20:52] LABS: GLUCOMETER DEV NAME(LOC) 3EX 1; GLUCOSE,POINT OF CARE 184 MG/DL (70-110)
[2018-01-01 00:20] VITALS: BP 113/67
[2018-01-01] MEDS: ZOLPIDEM TARTRATE 10 MG TABLET PO PRN (00:21)
[2018-01-01 05:44] LABS: GLUCOMETER DEV NAME(LOC) 3EI B; GLUCOSE,POINT OF CARE 120 MG/DL (70-110)
[2018-01-01] MEDS: LEVOTHYROXINE SODIUM 25 MCG TABLET PO SCH (06:50)
[2018-01-01] MEDS: GlyBURIDE 5 MG TABLET PO SCH (06:50)
[2018-01-01] MEDS: GABAPENTIN 300 MG CAPSULE PO SCH ×3 (08:09→16:08)
[2018-01-01] MEDS: OMEPRAZOLE 20 MG CAPSULE PO SCH (08:09)
[2018-01-01] MEDS: SIMVASTATIN 10 MG TABLET PO SCH (08:10)
[2018-01-01] MEDS: LISINOPRIL 10 MG TABLET PO SCH (08:10)
[2018-01-01] MEDS: SitaGLIPtin PHOSPHATE 50 MG TABLET PO SCH (08:10)
[2018-01-01] MEDS: LamoTRIgine 25 MG TABLET PO SCH ×2 (08:10→16:08)
[2018-01-01] MEDS: DOCUSATE SODIUM 100 MG CAPSULE PO SCH (08:10)
[2018-01-01 08:30] VITALS: BP 141/68
[2018-01-01 11:18] LABS: GLUCOMETER DEV NAME(LOC) 3EX 1; GLUCOSE,POINT OF CARE 84 MG/DL (70-110)
[2018-01-01 16:23] VITALS: BP 157/98
[2018-01-01 16:58] LABS: GLUCOMETER DEV NAME(LOC) 3EX 1; GLUCOSE,POINT OF CARE 105 MG/DL (70-110)
[2018-01-01] MEDS: LORazepam 2 MG TABLET PO PRN (17:19)
[2018-01-01] MEDS: HALOPERIDOL 5 MG TABLET PO PRN (17:19)
[2018-01-01 20:49] LABS: GLUCOMETER DEV NAME(LOC) 3EX 1; GLUCOSE,POINT OF CARE 142 MG/DL (70-110)
[2018-01-01] MEDS: INSULIN LISPRO 100 UNITS/ML SQ PRN (21:04)
[2018-01-02] MEDS: HALOPERIDOL 5 MG TABLET PO PRN ×2 (02:18→15:54)
[2018-01-02 02:40] VITALS: BP 130/79
[2018-01-02] MEDS: ZOLPIDEM TARTRATE 10 MG TABLET PO PRN (02:53)
[2018-01-02 05:44] LABS: GLUCOMETER DEV NAME(LOC) 3EI B; GLUCOSE,POINT OF CARE 159 MG/DL (70-110)
[2018-01-02] MEDS: GlyBURIDE 5 MG TABLET PO SCH (06:52)
[2018-01-02] MEDS: LEVOTHYROXINE SODIUM 25 MCG TABLET PO SCH (06:53)
[2018-01-02] MEDS: INSULIN LISPRO 100 UNITS/ML SQ PRN (07:20)
[2018-01-02] MEDS: SIMVASTATIN 10 MG TABLET PO SCH (08:17)
[2018-01-02] MEDS: DOCUSATE SODIUM 100 MG CAPSULE PO SCH (08:17)
[2018-01-02] MEDS: LISINOPRIL 10 MG TABLET PO SCH (08:18)
[2018-01-02] MEDS: OMEPRAZOLE 20 MG CAPSULE PO SCH (08:18)
[2018-01-02] MEDS: GABAPENTIN 300 MG CAPSULE PO SCH ×3 (08:18→16:38)
[2018-01-02] MEDS: LamoTRIgine 25 MG TABLET PO SCH ×2 (08:18→16:38)
[2018-01-02] MEDS: SitaGLIPtin PHOSPHATE 50 MG TABLET PO SCH (08:18)
[2018-01-02 08:30] VITALS: BP 140/66
[2018-01-02 11:18] LABS: GLUCOMETER DEV NAME(LOC) 3EX 1; GLUCOSE,POINT OF CARE 94 MG/DL (70-110)
[2018-01-02] MEDS: LORazepam 2 MG TABLET PO PRN (15:54)
[2018-01-02 16:29] LABS: GLUCOMETER DEV NAME(LOC) 3EX 1; GLUCOSE,POINT OF CARE 96 MG/DL (70-110)
[2018-01-02 16:34] VITALS: BP 157/76
[2018-01-02 20:53] LABS: GLUCOMETER DEV NAME(LOC) 3EX 1; GLUCOSE,POINT OF CARE 126 MG/DL (70-110)
[2018-01-03] MEDS: ZOLPIDEM TARTRATE 10 MG TABLET PO PRN (02:08)
[2018-01-03 02:10] VITALS: BP 145/68
[2018-01-03 05:44] LABS: GLUCOMETER DEV NAME(LOC) 3EI B; GLUCOSE,POINT OF CARE 125 MG/DL (70-110)
[2018-01-03] MEDS: GlyBURIDE 5 MG TABLET PO SCH (07:01)
[2018-01-03] MEDS: LEVOTHYROXINE SODIUM 25 MCG TABLET PO SCH (07:01)
[2018-01-03 08:30] VITALS: BP 108/66
[2018-01-03] MEDS: GABAPENTIN 300 MG CAPSULE PO SCH (08:43)
[2018-01-03] MEDS: OMEPRAZOLE 20 MG CAPSULE PO SCH (08:43)
[2018-01-03] MEDS: LamoTRIgine 25 MG TABLET PO SCH (08:44)
[2018-01-03] MEDS: SitaGLIPtin PHOSPHATE 50 MG TABLET PO SCH (08:44)
[2018-01-03] MEDS: SIMVASTATIN 10 MG TABLET PO SCH (08:45)
[2018-01-03] MEDS: LISINOPRIL 10 MG TABLET PO SCH (08:45)
[2018-01-03] MEDS ORDERED: LAMO25 PO (10:10)
[2018-01-03] MEDS ORDERED: GABA-531 PO (10:10)
== END 2018-01-03 11:05 | disposition home or self-care (01) | DRG 885 ==
LOC: EMS 17:49 → 3EX 21:00
PROVIDERS: ADMIT Psychiatry & Neurology Psychiatry; ATTEND Psychiatry & Neurology Psychiatry
PROC: 5A09357 Assistance with Respiratory Ventilation, Less than 24 Consecutive Hours, Continuous Positive Airway Pressure (ICD-10-PCS; principal; 2017-12-21)
PROC: 5A09357 Assistance with Respiratory Ventilation, Less than 24 Consecutive Hours, Continuous Positive Airway Pressure (ICD-10-PCS; 2017-12-23)
PROC: 5A09357 Assistance with Respiratory Ventilation, Less than 24 Consecutive Hours, Continuous Positive Airway Pressure (ICD-10-PCS; 2017-12-24)
DX: F25.0 Schizoaffective disorder, bipolar type (principal); E87.0 Hyperosmolality and hypernatremia; E87.1 Hypo-osmolality and hyponatremia; D64.9 Anemia, unspecified; E03.9 Hypothyroidism, unspecified; E11.65 Type 2 diabetes mellitus with hyperglycemia; E78.00 Pure hypercholesterolemia, unspecified; E78.5 Hyperlipidemia, unspecified; F12.90 Cannabis use, unspecified, uncomplicated; F31.9 Bipolar disorder, unspecified; F41.9 Anxiety disorder, unspecified; G47.33 Obstructive sleep apnea (adult) (pediatric); I10 Essential (primary) hypertension; J44.9 Chronic obstructive pulmonary disease, unspecified; K21.9 Gastro-esophageal reflux disease without esophagitis; K59.00 Constipation, unspecified; K74.60 Unspecified cirrhosis of liver; Z87.891 Personal history of nicotine dependence; Z91.11 Patient's noncompliance with dietary regimen; Z91.5 Personal history of self-harm; Z28.21 Immunization not carried out because of patient refusal
CPT/HCPCS: 82728; 82948; 83036; 83540; 83550; 84443; 87081; 94660; 96374; 99285; G0480; J1200; J1630; J1815; J2060; J7030; Q0162

== ENCOUNTER 2018-01-16 17:06 | Inpatient (IN) | payer MEDICARE, OTHER ==
[~2018-01-16] VITALS: Ht 172.7 cm; Wt 114.3 kg
[~2018-01-16 17:06] MED LIST changes: -DIVA-78 PO; -DSS100 PO; +GABA-531 PO; +GLYB2.5 PO; +LAMO25 PO; -METF500T6 PO; -OMEG-50 PO; -PALI234D IM; -PROP10TA73 PO; +SITA50 PO; -VITAD1000 PO
[2018-01-16] MEDS ORDERED: PALI39DI IM (17:11)
[2018-01-16 17:18] LABS: GLUCOSE,POINT OF CARE 124 MG/DL (70-110)
[2018-01-16] MEDS ORDERED: ACETAMINOPHEN 500 MG TABLET PO ONE (18:15)
[2018-01-16 18:26] LABS: BASOPHILS % (AUTO) 0.6 % (0.0-2.0); EOSINOPHILS % (AUTO) 3.4 % (1.0-6.0); HEMATOCRIT 35.6 % (41-53); HEMOGLOBIN 12.3 g/dL (13.5-17.5); LYMPHOCYTES # (AUTO) 1.7 K/uL (1.0-4.8); LYMPHOCYTES % (AUTO) 16.7 % (22.0-44.0); MEAN CORPUSCULAR HEMOGLOBIN 32.4 pg (26.0-34.0); MEAN CORPUSCULAR HGB CONC 34.5 G/dL (31.0-37.0); MEAN CORPUSCULAR VOLUME 94 fL (80-100); MONOCYTES # (AUTO) 1.1 K/uL (0.1-1.0); MONOCYTES % (AUTO) 11.3 % (2.0-9.0); NEUTROPHILS # (AUTO) 6.9 K/uL (1.8-7.7); PLATELET COUNT (AUTO) 213 K/uL (150-450); RED BLOOD CELL COUNT(AUTO) 3.79 MIL/uL (4.50-5.90); RED CELL DISTRIBUTION WIDTH 13.2 % (11.5-14.5)
[2018-01-16 18:35] LABS: ANION GAP 11 mmol/L (8-16); CALCIUM, TOTAL 9.6 mg/dL (8.8-10.5); CARBON DIOXIDE 25 mmol/L (22-29); CHLORIDE 99 mmol/L (98-107); CREATININE 0.83 mg/dL (0.60-1.30); GLOMERULAR FILTR. RATE CALC > 60 mL/min (>60); GLUCOSE,RANDOM 129 mg/dL (70-110); POTASSIUM 4.2 mmol/L (3.5-5.1); SODIUM SERUM 135 mmol/L (136-145); UREA NITROGEN, BLOOD 12 mg/dL (7-18)
[2018-01-16 18:41] LABS: ALANINE AMINOTRANSFERASE 32 U/L (12-78); ALBUMIN 3.3 g/dL (3.4-5.0); ALKALINE PHOSPHATASE 80 U/L (46-116); ASPARTATE AMINOTRANSFERASE 16 U/L (15-37); BILIRUBIN,TOTAL 0.5 mg/dL (0.1-1.0); TOTAL PROTEIN, SERUM 9.5 g/dL (6.4-8.2)
[2018-01-16 18:45] LABS: APPEARANCE,URINE CLEAR (CLEAR); BILIRUBIN,URINE NEGATIVE (NEGATIVE); GLUCOSE, URINE (UA) NEGATIVE (NEGATIVE); KETONES,URINE NEGATIVE (NEGATIVE); LEUKOCYTE ESTERASE ,URINE NEGATIVE (NEGATIVE); NITRATE,URINE NEGATIVE (NEGATIVE); OCCULT BLOOD,URINE NEGATIVE (NEGATIVE); PH,URINE 6.5 (5.0-8.0); PROTEIN,URINE NEGATIVE (NEGATIVE)
[2018-01-16 18:49] LABS: AMPHET/METH SCREEN,URINE NEGATIVE (NEGATIVE); BARBITURATE SCREEN, URINE NEGATIVE (NEGATIVE); BENZODIAZEPINES SCREEN,URINE NEGATIVE (NEGATIVE); CANNABINOID SCREEN,URINE NEGATIVE (NEGATIVE); COCAINE SCREEN,URINE NEGATIVE (NEGATIVE); METHADONE SCREEN, URINE NEGATIVE (NEGATIVE); OPIATE SCREEN,URINE NEGATIVE (NEGATIVE); RBC,URINE 0-2 /HPF (0-2)
[2018-01-16 18:50] LABS: BACTERIA,URINE None Seen /HPF (None Seen); SQUAMOUS EPITHELIAL CELL,UR Rare /LPF (None Seen); WBC,URINE 0-2 /HPF (0-5)
[2018-01-16 18:52] LABS: PHENCYCLIDINE SCREEN,URINE NEGATIVE (NEGATIVE)
[2018-01-16] MEDS ORDERED: CefTRIAXone SODIUM 1 GM in DEXTROSE 5%-WATER 10 ML IV ONE (19:45)
[2018-01-16] MEDS ORDERED: AZITHROMYCIN 500 MG/NS 250 ML IV ONE (19:45)
[2018-01-16] MEDS ORDERED: SODIUM CHLORIDE 0.9% 1,000 ML IV ONE (20:00)
[2018-01-16] MEDS ORDERED: LORazepam 2 MG TABLET PO ONE (20:15)
[2018-01-16] MEDS ORDERED: ACETAMINOPHEN 325 MG TABLET PO PRN (20:15)
[2018-01-16] MEDS ORDERED: ONDANSETRON HCL 4 MG/2 ML VIAL IVP PRN ×2 (20:15→23:00)
[2018-01-16 21:00] VITALS: BP 105/60
[2018-01-16 22:58] LABS: GLUCOMETER DEV NAME(LOC) 6N 2D; GLUCOSE,POINT OF CARE 113 MG/DL (70-110)
[2018-01-16] MEDS ORDERED: 0.9% SODIUM CHLORIDE 10 ML SYRINGE IVP PRN (23:00)
[2018-01-16] MEDS ORDERED: INSULIN LISPRO 100 UNITS/ML SQ PRN (23:00)
[2018-01-16] MEDS ORDERED: GLUCAGON,HUMAN RECOMBINANT 1 MG VIAL IM PRN (23:00)
[2018-01-16] MEDS ORDERED: IPRATROPIUM BROMIDE 0.5 MG/2.5 ML NEB SOLUTION NEB PRN (23:00)
[2018-01-16] MEDS ORDERED: ZOLPIDEM TARTRATE 5 MG TABLET PO PRN (23:00)
[2018-01-16] MEDS: DOCUSATE SODIUM 100 MG CAPSULE PO SCH (23:00)
[2018-01-16] MEDS ORDERED: ALBUTEROL SULFATE 2.5 MG/0.5 ML NEB SOLUTION NEB PRN (23:00)
[2018-01-16] MEDS ORDERED: DEXTROSE 50%-WATER 25 GM/50 ML SYG IVP PRN (23:15)
[2018-01-17] VITALS (7 sets, daily range): BP systolic 114–136; BP diastolic 72–84
[2018-01-17] MEDS: LamoTRIgine 25 MG TABLET PO SCH ×3 (00:41→20:17)
[2018-01-17] MEDS: ALBUTEROL SULFATE 2.5 MG/0.5 ML NEB SOLUTION NEB SCH ×4 (01:44→20:00)
[2018-01-17] MEDS: IPRATROPIUM BROMIDE 0.5 MG/2.5 ML NEB SOLUTION NEB SCH ×4 (01:44→20:00)
[2018-01-17] MEDS: ACETAMINOPHEN 325 MG TABLET PO PRN ×2 (03:40→10:43)
[2018-01-17] MEDS: INSULIN LISPRO 100 UNITS/ML SQ PRN ×3 (05:54→21:53)
[2018-01-17 06:24] LABS: BASOPHILS % (AUTO) 0.5 % (0.0-2.0); EOSINOPHILS % (AUTO) 3.8 % (1.0-6.0); HEMATOCRIT 32.9 % (41-53); HEMOGLOBIN 11.3 g/dL (13.5-17.5); LYMPHOCYTES # (AUTO) 1.4 K/uL (1.0-4.8); MEAN CORPUSCULAR HEMOGLOBIN 32.4 pg (26.0-34.0); MEAN CORPUSCULAR HGB CONC 34.4 G/dL (31.0-37.0); MEAN CORPUSCULAR VOLUME 94 fL (80-100); MONOCYTES # (AUTO) 0.9 K/uL (0.1-1.0); MONOCYTES % (AUTO) 11.5 % (2.0-9.0); NEUTROPHILS % (AUTO) 66.2 % (40.0-70.0); PLATELET COUNT (AUTO) 183 K/uL (150-450); RED CELL DISTRIBUTION WIDTH 13.2 % (11.5-14.5)
[2018-01-17 06:29] LABS: ANION GAP 8 mmol/L (8-16); CALCIUM, TOTAL 8.7 mg/dL (8.8-10.5); CARBON DIOXIDE 27 mmol/L (22-29); CHLORIDE 100 mmol/L (98-107); CREATININE 0.72 mg/dL (0.60-1.30); GLOMERULAR FILTR. RATE CALC > 60 mL/min (>60); GLUCOSE,RANDOM 217 mg/dL (70-110); POTASSIUM 3.9 mmol/L (3.5-5.1); SODIUM SERUM 135 mmol/L (136-145); UREA NITROGEN, BLOOD 11 mg/dL (7-18)
[2018-01-17 06:39] LABS: GLUCOMETER DEV NAME(LOC) 6N 2D; GLUCOSE,POINT OF CARE 196 MG/DL (70-110)
[2018-01-17 07:17] LABS: HEMOGLOBIN A1C 7.1 % (4.5-6.2)
[2018-01-17] MEDS: LEVOTHYROXINE SODIUM 25 MCG TABLET PO SCH (07:27)
[2018-01-17] MEDS: SIMVASTATIN 10 MG TABLET PO SCH (08:53)
[2018-01-17] MEDS: GABAPENTIN 300 MG CAPSULE PO SCH ×3 (08:54→20:18)
[2018-01-17] MEDS: DOCUSATE SODIUM 100 MG CAPSULE PO SCH ×2 (08:54→20:17)
[2018-01-17] MEDS: LISINOPRIL 10 MG TABLET PO SCH (08:54)
[2018-01-17] MEDS: HEPARIN SODIUM,PORCINE 5,000 UNITS/ML VIAL SQ SCH ×3 (08:55→16:05)
[2018-01-17] MEDS: SitaGLIPtin PHOSPHATE 50 MG TABLET PO SCH (08:55)
[2018-01-17] MEDS: PANTOPRAZOLE SODIUM 40 MG/VIAL IVP SCH (08:56)
[2018-01-17] MEDS ORDERED: OMEPRAZOLE 20 MG CAPSULE PO SCH (09:00)
[2018-01-17] MEDS ORDERED: MAGNESIUM SULFATE 2 GM/WATER 50 ML IV PRN ×2 (09:45→10:15)
[2018-01-17] MEDS ORDERED: MAGNESIUM OXIDE 400 MG TABLET PO PRN (09:45)
[2018-01-17] MEDS ORDERED: MAGNESIUM SULFATE 4 GM/WATER 100 ML IV PRN ×2 (09:45→10:15)
[2018-01-17] MEDS: MAGNESIUM OXIDE 400 MG TABLET PO PRN ×3 (10:44→19:02)
[2018-01-17 10:49] LABS: ALBUMIN 2.9 g/dL (3.4-5.0)
[2018-01-17] MEDS ORDERED: PALI234D IM (11:09)
[2018-01-17] MEDS ORDERED: GLYB5 PO (11:09)
[2018-01-17] MEDS: FLUTICASONE/VILANTEROL 200-25 MCG/INH INHALER [14] IH SCH (12:26)
[2018-01-17] MEDS: FLUTICASONE PROPIONATE 50 MCG/SPRAY 16 GM NASAL SPRAY NASAL SCH ×2 (12:26→20:18)
[2018-01-17] MEDS: TIOTROPIUM BROMIDE 18 MCG/INH HANDIHALER [5] IH SCH (12:27)
[2018-01-17 13:54] LABS: GLUCOMETER DEV NAME(LOC) 6N 2D; GLUCOSE,POINT OF CARE 109 MG/DL (70-110)
[2018-01-17 17:38] LABS: GLUCOMETER DEV NAME(LOC) 6N 2D; GLUCOSE,POINT OF CARE 167 MG/DL (70-110)
[2018-01-17] MEDS: CefTRIAXone SODIUM 1 GM in DEXTROSE 5%-WATER 10 ML IV SCH (20:18)
[2018-01-17] MEDS: AZITHROMYCIN 500 MG/NS 250 ML IV SCH (21:09)
[2018-01-18] MEDS: ALBUTEROL SULFATE 2.5 MG/0.5 ML NEB SOLUTION NEB SCH ×4 (02:00→19:28)
[2018-01-18] MEDS: IPRATROPIUM BROMIDE 0.5 MG/2.5 ML NEB SOLUTION NEB SCH ×4 (02:00→19:28)
[2018-01-18 03:43] LABS: GLUCOMETER DEV NAME(LOC) 6N 1E; GLUCOSE,POINT OF CARE 172 MG/DL (70-110)
[2018-01-18 03:50] VITALS: BP 146/77
[2018-01-18] MEDS: LEVOTHYROXINE SODIUM 25 MCG TABLET PO SCH (06:19)
[2018-01-18] MEDS: INSULIN LISPRO 100 UNITS/ML SQ PRN ×2 (06:22→20:33)
[2018-01-18 06:37] LABS: BASOPHILS % (AUTO) 0.9 % (0.0-2.0); EOSINOPHILS % (AUTO) 3.7 % (1.0-6.0); HEMATOCRIT 33.9 % (41-53); HEMOGLOBIN 11.7 g/dL (13.5-17.5); LYMPHOCYTES # (AUTO) 1.8 K/uL (1.0-4.8); LYMPHOCYTES % (AUTO) 24.4 % (22.0-44.0); MEAN CORPUSCULAR HEMOGLOBIN 32.4 pg (26.0-34.0); MEAN CORPUSCULAR HGB CONC 34.5 G/dL (31.0-37.0); MEAN CORPUSCULAR VOLUME 94 fL (80-100); MONOCYTES # (AUTO) 0.8 K/uL (0.1-1.0); MONOCYTES % (AUTO) 11.5 % (2.0-9.0); NEUTROPHILS # (AUTO) 4.4 K/uL (1.8-7.7); NEUTROPHILS % (AUTO) 59.5 % (40.0-70.0); PLATELET COUNT (AUTO) 222 K/uL (150-450); RED BLOOD CELL COUNT(AUTO) 3.62 MIL/uL (4.50-5.90); RED CELL DISTRIBUTION WIDTH 13.2 % (11.5-14.5)
[2018-01-18 07:13] LABS: ANION GAP 12 mmol/L (8-16); CALCIUM, TOTAL 8.8 mg/dL (8.8-10.5); CARBON DIOXIDE 24 mmol/L (22-29); CHLORIDE 99 mmol/L (98-107); CHOL/HDL RATIO 2.9 (4.2-7.3); CHOLESTEROL 109 mg/dL (131-200); CREATININE 0.73 mg/dL (0.60-1.30); FREE T4 (FREE THYROXINE) 1.38 ng/dL (0.76-1.46); GLOMERULAR FILTR. RATE CALC > 60 mL/min (>60); GLUCOSE,RANDOM 168 mg/dL (70-110); HDL CHOLESTEROL 38 mg/dL (40-60); LDL CHOL (CALC.) 56 mg/dL (0-130); POTASSIUM 3.7 mmol/L (3.5-5.1); SODIUM SERUM 135 mmol/L (136-145); THYROID STIMULATING HORMONE 1.25 uIU/mL (0.36-3.74); TRIGLYCERIDES 73 mg/dL (15-150); UREA NITROGEN, BLOOD 12 mg/dL (7-18)
[2018-01-18 08:16] VITALS: BP 136/78
[2018-01-18] MEDS: GABAPENTIN 300 MG CAPSULE PO SCH ×3 (08:34→19:49)
[2018-01-18] MEDS: SitaGLIPtin PHOSPHATE 50 MG TABLET PO SCH (08:35)
[2018-01-18] MEDS: DOCUSATE SODIUM 100 MG CAPSULE PO SCH ×2 (08:35→19:49)
[2018-01-18] MEDS: SIMVASTATIN 10 MG TABLET PO SCH (08:36)
[2018-01-18] MEDS: LISINOPRIL 10 MG TABLET PO SCH (08:36)
[2018-01-18] MEDS: LamoTRIgine 25 MG TABLET PO SCH ×2 (08:37→19:49)
[2018-01-18] MEDS: TIOTROPIUM BROMIDE 18 MCG/INH HANDIHALER [5] IH SCH (08:37)
[2018-01-18] MEDS: FLUTICASONE PROPIONATE 50 MCG/SPRAY 16 GM NASAL SPRAY NASAL SCH ×2 (08:37→19:49)
[2018-01-18] MEDS: PANTOPRAZOLE SODIUM 40 MG/VIAL IVP SCH (08:38)
[2018-01-18] MEDS: FLUTICASONE/VILANTEROL 200-25 MCG/INH INHALER [14] IH SCH (08:38)
[2018-01-18] MEDS: HEPARIN SODIUM,PORCINE 5,000 UNITS/ML VIAL SQ SCH ×3 (08:39→15:28)
[2018-01-18 09:13] LABS: GLUCOMETER DEV NAME(LOC) 6N 2D; GLUCOSE,POINT OF CARE 166 MG/DL (70-110)
[2018-01-18 11:48] VITALS: BP 137/73
[2018-01-18 12:24] LABS: GLUCOMETER DEV NAME(LOC) 6N 2D; GLUCOSE,POINT OF CARE 122 MG/DL (70-110)
[2018-01-18] MEDS: LITHIUM CARBONATE 300 MG CAPSULE PO SCH ×2 (15:27→19:49)
[2018-01-18 15:54] VITALS: BP 120/69
[2018-01-18 17:54] LABS: GLUCOMETER DEV NAME(LOC) 6N 2D; GLUCOSE,POINT OF CARE 116 MG/DL (70-110)
[2018-01-18] MEDS: HALOPERIDOL 5 MG TABLET PO SCH (19:49)
[2018-01-18 19:52] VITALS: BP 142/73
[2018-01-18] MEDS: CefTRIAXone SODIUM 1 GM in DEXTROSE 5%-WATER 10 ML IV SCH (19:53)
[2018-01-18] MEDS: AZITHROMYCIN 500 MG/NS 250 ML IV SCH (20:32)
[2018-01-18 21:59] LABS: GLUCOMETER DEV NAME(LOC) 6N 2D; GLUCOSE,POINT OF CARE 168 MG/DL (70-110)
[2018-01-19] MEDS: HEPARIN SODIUM,PORCINE 5,000 UNITS/ML VIAL SQ SCH ×3 (00:10→16:02)
[2018-01-19] MEDS: ALBUTEROL SULFATE 2.5 MG/0.5 ML NEB SOLUTION NEB SCH ×4 (01:45→20:16)
[2018-01-19] MEDS: IPRATROPIUM BROMIDE 0.5 MG/2.5 ML NEB SOLUTION NEB SCH ×4 (01:46→20:16)
[2018-01-19 04:57] VITALS: BP 123/73
[2018-01-19] MEDS: LEVOTHYROXINE SODIUM 25 MCG TABLET PO SCH (06:32)
[2018-01-19 06:54] LABS: GLUCOMETER DEV NAME(LOC) 6N 1E; GLUCOSE,POINT OF CARE 139 MG/DL (70-110)
[2018-01-19 07:29] VITALS: BP 131/62
[2018-01-19] MEDS: TIOTROPIUM BROMIDE 18 MCG/INH HANDIHALER [5] IH SCH (07:55)
[2018-01-19] MEDS: FLUTICASONE/VILANTEROL 200-25 MCG/INH INHALER [14] IH SCH (07:55)
[2018-01-19] MEDS: FLUTICASONE PROPIONATE 50 MCG/SPRAY 16 GM NASAL SPRAY NASAL SCH ×2 (07:55→21:32)
[2018-01-19] MEDS: PANTOPRAZOLE SODIUM 40 MG/VIAL IVP SCH (07:55)
[2018-01-19] MEDS: LamoTRIgine 25 MG TABLET PO SCH ×2 (07:56→21:35)
[2018-01-19] MEDS: SIMVASTATIN 10 MG TABLET PO SCH (07:56)
[2018-01-19] MEDS: SitaGLIPtin PHOSPHATE 50 MG TABLET PO SCH (07:56)
[2018-01-19] MEDS: LITHIUM CARBONATE 300 MG CAPSULE PO SCH ×2 (07:56→21:34)
[2018-01-19] MEDS: DOCUSATE SODIUM 100 MG CAPSULE PO SCH ×2 (07:56→21:34)
[2018-01-19] MEDS: GABAPENTIN 300 MG CAPSULE PO SCH ×3 (07:56→21:35)
[2018-01-19] MEDS: LISINOPRIL 10 MG TABLET PO SCH (07:57)
[2018-01-19 09:13] LABS: EOSINOPHILS % (AUTO) 2.7 % (1.0-6.0); HEMATOCRIT 30.6 % (41-53); HEMOGLOBIN 10.7 g/dL (13.5-17.5); LYMPHOCYTES # (AUTO) 1.2 K/uL (1.0-4.8); LYMPHOCYTES % (AUTO) 19.6 % (22.0-44.0); MEAN CORPUSCULAR HEMOGLOBIN 32.6 pg (26.0-34.0); MEAN CORPUSCULAR HGB CONC 34.9 G/dL (31.0-37.0); MEAN CORPUSCULAR VOLUME 93 fL (80-100); MONOCYTES # (AUTO) 0.5 K/uL (0.1-1.0); MONOCYTES % (AUTO) 8.8 % (2.0-9.0); NEUTROPHILS # (AUTO) 4.1 K/uL (1.8-7.7); NEUTROPHILS % (AUTO) 67.9 % (40.0-70.0); PLATELET COUNT (AUTO) 199 K/uL (150-450); RED BLOOD CELL COUNT(AUTO) 3.27 MIL/uL (4.50-5.90); RED CELL DISTRIBUTION WIDTH 13.3 % (11.5-14.5)
[2018-01-19 09:23] LABS: ANION GAP 7 mmol/L (8-16); CALCIUM, TOTAL 8.4 mg/dL (8.8-10.5); CARBON DIOXIDE 26 mmol/L (22-29); CHLORIDE 100 mmol/L (98-107); CREATININE 0.71 mg/dL (0.60-1.30); GLOMERULAR FILTR. RATE CALC > 60 mL/min (>60); GLUCOSE,RANDOM 189 mg/dL (70-110); POTASSIUM 3.9 mmol/L (3.5-5.1); SODIUM SERUM 133 mmol/L (136-145); UREA NITROGEN, BLOOD 12 mg/dL (7-18)
[2018-01-19 11:23] VITALS: BP 130/64
[2018-01-19 16:12] VITALS: BP 152/63
[2018-01-19 17:09] LABS: GLUCOMETER DEV NAME(LOC) 6N 2D; GLUCOSE,POINT OF CARE 105 MG/DL (70-110)
[2018-01-19 20:10] VITALS: BP 136/82
[2018-01-19] MEDS: CefTRIAXone SODIUM 1 GM in DEXTROSE 5%-WATER 10 ML IV SCH (21:27)
[2018-01-19] MEDS: AZITHROMYCIN 500 MG/NS 250 ML IV SCH (21:32)
[2018-01-19] MEDS: HALOPERIDOL 5 MG TABLET PO SCH (21:34)
[2018-01-19 23:48] VITALS: BP 115/72
[2018-01-20] MEDS: HEPARIN SODIUM,PORCINE 5,000 UNITS/ML VIAL SQ SCH ×3 (00:35→15:34)
[2018-01-20] MEDS: ALBUTEROL SULFATE 2.5 MG/0.5 ML NEB SOLUTION NEB SCH ×3 (02:15→14:03)
[2018-01-20] MEDS: IPRATROPIUM BROMIDE 0.5 MG/2.5 ML NEB SOLUTION NEB SCH ×3 (02:15→14:03)
[2018-01-20] MEDS: ACETAMINOPHEN 325 MG TABLET PO PRN (03:42)
[2018-01-20 04:00] VITALS: BP 117/73
[2018-01-20] MEDS: LEVOTHYROXINE SODIUM 25 MCG TABLET PO SCH (06:22)
[2018-01-20] MEDS: INSULIN LISPRO 100 UNITS/ML SQ PRN (06:23)
[2018-01-20 06:27] LABS: BASOPHILS % (AUTO) 0.7 % (0.0-2.0); EOSINOPHILS % (AUTO) 3.8 % (1.0-6.0); HEMATOCRIT 29.6 % (41-53); HEMOGLOBIN 10.4 g/dL (13.5-17.5); MEAN CORPUSCULAR HEMOGLOBIN 32.8 pg (26.0-34.0); MEAN CORPUSCULAR HGB CONC 35.2 G/dL (31.0-37.0); MEAN CORPUSCULAR VOLUME 93 fL (80-100); MONOCYTES # (AUTO) 0.5 K/uL (0.1-1.0); MONOCYTES % (AUTO) 10.2 % (2.0-9.0); NEUTROPHILS # (AUTO) 3.4 K/uL (1.8-7.7); NEUTROPHILS % (AUTO) 65.3 % (40.0-70.0); PLATELET COUNT (AUTO) 201 K/uL (150-450); RED BLOOD CELL COUNT(AUTO) 3.17 MIL/uL (4.50-5.90); RED CELL DISTRIBUTION WIDTH 13.2 % (11.5-14.5)
[2018-01-20 06:39] LABS: ANION GAP 8 mmol/L (8-16); CALCIUM, TOTAL 8.6 mg/dL (8.8-10.5); CARBON DIOXIDE 26 mmol/L (22-29); CHLORIDE 103 mmol/L (98-107); CREATININE 0.69 mg/dL (0.60-1.30); GLOMERULAR FILTR. RATE CALC > 60 mL/min (>60); GLUCOSE,RANDOM 114 mg/dL (70-110); POTASSIUM 3.9 mmol/L (3.5-5.1); SODIUM SERUM 137 mmol/L (136-145); UREA NITROGEN, BLOOD 12 mg/dL (7-18)
[2018-01-20 07:19] LABS: GLUCOMETER DEV NAME(LOC) 6N 2D; GLUCOSE,POINT OF CARE 163 MG/DL (70-110)
[2018-01-20 08:00] VITALS: BP 138/78
[2018-01-20] MEDS: FLUTICASONE PROPIONATE 50 MCG/SPRAY 16 GM NASAL SPRAY NASAL SCH (08:59)
[2018-01-20] MEDS: LITHIUM CARBONATE 300 MG CAPSULE PO SCH (08:59)
[2018-01-20] MEDS: DOCUSATE SODIUM 100 MG CAPSULE PO SCH (08:59)
[2018-01-20] MEDS: SitaGLIPtin PHOSPHATE 50 MG TABLET PO SCH (09:00)
[2018-01-20] MEDS: GABAPENTIN 300 MG CAPSULE PO SCH ×2 (09:00→15:34)
[2018-01-20] MEDS: LamoTRIgine 25 MG TABLET PO SCH (09:00)
[2018-01-20] MEDS: PANTOPRAZOLE SODIUM 40 MG/VIAL IVP SCH (09:00)
[2018-01-20] MEDS: LISINOPRIL 10 MG TABLET PO SCH (09:01)
[2018-01-20] MEDS: SIMVASTATIN 10 MG TABLET PO SCH (09:01)
[2018-01-20] MEDS: FLUTICASONE/VILANTEROL 200-25 MCG/INH INHALER [14] IH SCH (09:02)
[2018-01-20] MEDS: TIOTROPIUM BROMIDE 18 MCG/INH HANDIHALER [5] IH SCH (09:02)
[2018-01-20] MEDS ORDERED: LEVOFLOXACIN 250 MG TABLET PO ONE (11:15)
[2018-01-20] MEDS ORDERED: AZITHROMYCIN 250 MG TABLET PO SCH (11:15)
[2018-01-20 11:20] VITALS: BP 136/72
[2018-01-20 11:39] LABS: GLUCOMETER DEV NAME(LOC) 6N 2D; GLUCOSE,POINT OF CARE 104 MG/DL (70-110)
[2018-01-20 16:00] VITALS: BP 142/60
[2018-01-20 17:33] LABS: GLUCOMETER DEV NAME(LOC) 6N 1E; GLUCOSE,POINT OF CARE 112 MG/DL (70-110)
== END 2018-01-20 18:10 | DRG 190 ==
LOC: EMS 17:08 → 6N 20:00
PROVIDERS: ADMIT Internal Medicine Geriatric Medicine; ATTEND Internal Medicine Geriatric Medicine
PROC: 5A09357 Assistance with Respiratory Ventilation, Less than 24 Consecutive Hours, Continuous Positive Airway Pressure (ICD-10-PCS; principal; 2018-01-17)
PROC: 5A09357 Assistance with Respiratory Ventilation, Less than 24 Consecutive Hours, Continuous Positive Airway Pressure (ICD-10-PCS; 2018-01-18)
PROC: 5A09357 Assistance with Respiratory Ventilation, Less than 24 Consecutive Hours, Continuous Positive Airway Pressure (ICD-10-PCS; 2018-01-19)
DX: J44.0 Chronic obstructive pulmonary disease with (acute) lower respiratory infection (principal); J18.9 Pneumonia, unspecified organism; E03.9 Hypothyroidism, unspecified; E11.9 Type 2 diabetes mellitus without complications; E78.00 Pure hypercholesterolemia, unspecified; E78.5 Hyperlipidemia, unspecified; F25.9 Schizoaffective disorder, unspecified; F31.9 Bipolar disorder, unspecified; F41.9 Anxiety disorder, unspecified; G47.33 Obstructive sleep apnea (adult) (pediatric); I10 Essential (primary) hypertension; K21.9 Gastro-esophageal reflux disease without esophagitis; E66.9 Obesity, unspecified; K59.00 Constipation, unspecified; F10.20 Alcohol dependence, uncomplicated; K74.60 Unspecified cirrhosis of liver; Z59.0 Homelessness; Z79.899 Other long term (current) drug therapy; Z82.49 Family history of ischemic heart disease and other diseases of the circulatory system; Z83.3 Family history of diabetes mellitus; Z87.891 Personal history of nicotine dependence; Z68.38 Body mass index [BMI] 38.0-38.9, adult
CPT/HCPCS: 71250; 82306; 82607; 82746; 83036; 83605; 83735; 84439; 84443; 87040; 87081; 94640; 94660; 96365; 96375; 99285; C9113; G0480; J0456; J0696; J1644; J7030; J7060

== ENCOUNTER 2018-01-20 17:50 | Inpatient (IN) | payer MEDICARE, MEDICAID ==
[~2018-01-20] VITALS: Ht 172.7 cm; Wt 114.0 kg
[~2018-01-20 17:50] MED LIST changes: -GLYB2.5 PO; +GLYB5 PO; +PALI234D IM
[2018-01-20] MEDS ORDERED: ONDANSETRON HCL 4 MG TABLET PO PRN (21:15)
[2018-01-20] MEDS ORDERED: MAGNESIUM HYDROXIDE SUSPENSION 30 ML UDCUP PO PRN (21:15)
[2018-01-20] MEDS ORDERED: MAG HYDROX/AL HYDROX/SIMETH ES 30 ML SUSPENSION UDCUP PO PRN (21:15)
[2018-01-20] MEDS ORDERED: ACETAMINOPHEN 325 MG TABLET PO PRN (21:15)
[2018-01-20] MEDS ORDERED: BACITRACIN 28.4 GM OINTMENT TP PRN (21:15)
[2018-01-20] MEDS ORDERED: CloNIDine HCL 0.1 MG TABLET PO PRN (21:15)
[2018-01-20] MEDS ORDERED: PETROLATUM,WHITE 71 GM JELLY TP PRN (21:15)
[2018-01-20] MEDS ORDERED: ALBUTEROL SULFATE HFA 90 MCG/PUFF 8 GM INHALER IH PRN (21:15)
[2018-01-20] MEDS ORDERED: LOPERAMIDE HCL 2 MG CAPSULE PO PRN (21:15)
[2018-01-20] MEDS ORDERED: DEXTROSE 50%-WATER 25 GM/50 ML SYRINGE IVP PRN (21:15)
[2018-01-20] MEDS ORDERED: BENZOCAINE/MENTHOL LOZENGE MM PRN (21:15)
[2018-01-20 21:39] VITALS: BP 136/87
[2018-01-20] MEDS: HALOPERIDOL 5 MG TABLET PO SCH (21:58)
[2018-01-20] MEDS: ZOLPIDEM TARTRATE 10 MG TABLET PO PRN (22:00)
[2018-01-21] MEDS: LEVOTHYROXINE SODIUM 25 MCG TABLET PO SCH (06:38)
[2018-01-21] MEDS ORDERED: PNEUMOCOCCAL VACCINE POLYVALENT 0.5 ML VIAL [PPSV23] IM ONE (07:00)
[2018-01-21] MEDS: HALOPERIDOL 5 MG TABLET PO PRN ×2 (07:47→13:10)
[2018-01-21] MEDS: SIMVASTATIN 10 MG TABLET PO SCH (07:48)
[2018-01-21] MEDS: LamoTRIgine 25 MG TABLET PO SCH ×2 (07:48→16:09)
[2018-01-21] MEDS: AZITHROMYCIN 250 MG TABLET PO SCH (07:49)
[2018-01-21] MEDS: GABAPENTIN 300 MG CAPSULE PO SCH ×3 (07:49→16:09)
[2018-01-21] MEDS: LITHIUM CARBONATE 300 MG CAPSULE PO SCH ×2 (07:49→16:09)
[2018-01-21] MEDS: SitaGLIPtin PHOSPHATE 50 MG TABLET PO SCH (07:49)
[2018-01-21] MEDS: OMEPRAZOLE 20 MG CAPSULE PO SCH (07:50)
[2018-01-21] MEDS: DOCUSATE SODIUM 100 MG CAPSULE PO SCH (07:50)
[2018-01-21] MEDS: LORazepam 2 MG TABLET PO PRN ×2 (07:52→13:10)
[2018-01-21] MEDS: LISINOPRIL 10 MG TABLET PO SCH (07:58)
[2018-01-21 08:01] VITALS: BP 153/65
[2018-01-21] MEDS ORDERED: OMEPRAZOLE 20 MG CAPSULE PO SCH (09:00)
[2018-01-21 14:55] LABS: GLUCOMETER DEV NAME(LOC) 3EC; GLUCOSE,POINT OF CARE 124 MG/DL (70-110)
[2018-01-21 14:55] LABS: GLUCOMETER DEV NAME(LOC) 3EX 1; GLUCOSE,POINT OF CARE 111 MG/DL (70-110)
[2018-01-21 14:55] LABS: GLUCOMETER DEV NAME(LOC) 3EX 1; GLUCOSE,POINT OF CARE 97 MG/DL (70-110)
[2018-01-21 16:14] VITALS: BP 140/80
[2018-01-21 16:18] LABS: GLUCOMETER DEV NAME(LOC) 3EX 1; GLUCOSE,POINT OF CARE 125 MG/DL (70-110)
[2018-01-21] MEDS: HALOPERIDOL 5 MG TABLET PO SCH (20:32)
[2018-01-21 20:43] LABS: GLUCOMETER DEV NAME(LOC) 3EX 1; GLUCOSE,POINT OF CARE 129 MG/DL (70-110)
[2018-01-22 05:39] LABS: GLUCOMETER DEV NAME(LOC) 3EI C; GLUCOSE,POINT OF CARE 105 MG/DL (70-110)
[2018-01-22] MEDS: LEVOTHYROXINE SODIUM 25 MCG TABLET PO SCH (05:59)
[2018-01-22] MEDS: LORazepam 2 MG TABLET PO PRN ×2 (06:59→19:31)
[2018-01-22] MEDS: HALOPERIDOL 5 MG TABLET PO PRN ×2 (06:59→16:05)
[2018-01-22] MEDS: GABAPENTIN 300 MG CAPSULE PO SCH ×3 (07:54→16:05)
[2018-01-22] MEDS: OMEPRAZOLE 20 MG CAPSULE PO SCH (07:54)
[2018-01-22] MEDS: SitaGLIPtin PHOSPHATE 50 MG TABLET PO SCH (07:54)
[2018-01-22] MEDS: DOCUSATE SODIUM 100 MG CAPSULE PO SCH (07:54)
[2018-01-22] MEDS: LITHIUM CARBONATE 300 MG CAPSULE PO SCH ×2 (07:54→16:05)
[2018-01-22] MEDS: LamoTRIgine 25 MG TABLET PO SCH ×2 (07:54→16:05)
[2018-01-22] MEDS: SIMVASTATIN 10 MG TABLET PO SCH (07:55)
[2018-01-22] MEDS: AZITHROMYCIN 250 MG TABLET PO SCH (07:55)
[2018-01-22] MEDS: LISINOPRIL 10 MG TABLET PO SCH (07:56)
[2018-01-22 08:59] VITALS: BP 135/72
[2018-01-22 12:29] LABS: GLUCOMETER DEV NAME(LOC) 3EI C; GLUCOSE,POINT OF CARE 94 MG/DL (70-110)
[2018-01-22] MEDS: IBUPROFEN 600 MG TABLET PO PRN (12:48)
[2018-01-22 16:18] LABS: GLUCOMETER DEV NAME(LOC) 3EX 1; GLUCOSE,POINT OF CARE 128 MG/DL (70-110)
[2018-01-22 17:18] VITALS: BP 107/59
[2018-01-22 19:58] LABS: GLUCOMETER DEV NAME(LOC) 3EX 1; GLUCOSE,POINT OF CARE 133 MG/DL (70-110)
[2018-01-22] MEDS: HALOPERIDOL 5 MG TABLET PO SCH (21:03)
[2018-01-23 02:11] VITALS: BP 119/91
[2018-01-23] MEDS: LORazepam 2 MG TABLET PO PRN ×3 (02:41→21:06)
[2018-01-23] MEDS: ZOLPIDEM TARTRATE 10 MG TABLET PO PRN (02:41)
[2018-01-23 05:35] LABS: GLUCOMETER DEV NAME(LOC) 3EI C; GLUCOSE,POINT OF CARE 160 MG/DL (70-110)
[2018-01-23] MEDS: LEVOTHYROXINE SODIUM 25 MCG TABLET PO SCH (07:11)
[2018-01-23] MEDS: INSULIN LISPRO 100 UNITS/ML SQ PRN ×3 (07:16→20:46)
[2018-01-23] MEDS: GABAPENTIN 300 MG CAPSULE PO SCH ×3 (08:43→16:48)
[2018-01-23] MEDS: SitaGLIPtin PHOSPHATE 50 MG TABLET PO SCH (08:43)
[2018-01-23] MEDS: LISINOPRIL 10 MG TABLET PO SCH (08:43)
[2018-01-23] MEDS: AZITHROMYCIN 250 MG TABLET PO SCH (08:43)
[2018-01-23] MEDS: OMEPRAZOLE 20 MG CAPSULE PO SCH (08:43)
[2018-01-23] MEDS: LamoTRIgine 25 MG TABLET PO SCH ×2 (08:43→16:48)
[2018-01-23] MEDS: LITHIUM CARBONATE 300 MG CAPSULE PO SCH ×2 (08:44→16:48)
[2018-01-23] MEDS: SIMVASTATIN 10 MG TABLET PO SCH (08:44)
[2018-01-23] MEDS: DOCUSATE SODIUM 100 MG CAPSULE PO SCH (08:44)
[2018-01-23] MEDS: IBUPROFEN 600 MG TABLET PO PRN ×2 (09:06→16:51)
[2018-01-23] MEDS: HALOPERIDOL 5 MG TABLET PO PRN (09:07)
[2018-01-23 09:08] VITALS: BP 142/80
[2018-01-23 11:14] LABS: GLUCOMETER DEV NAME(LOC) 3EX 1; GLUCOSE,POINT OF CARE 102 MG/DL (70-110)
[2018-01-23 16:45] VITALS: BP 131/73
[2018-01-23 17:51] VITALS: BP 143/75
[2018-01-23] MEDS: HALOPERIDOL 5 MG TABLET PO SCH (20:02)
[2018-01-23 20:29] LABS: GLUCOMETER DEV NAME(LOC) 3EX 1; GLUCOSE,POINT OF CARE 142 MG/DL (70-110)
[2018-01-24 04:13] VITALS: BP 148/86
[2018-01-24 06:35] LABS: GLUCOMETER DEV NAME(LOC) 3EI C; GLUCOSE,POINT OF CARE 132 MG/DL (70-110)
[2018-01-24] MEDS: LEVOTHYROXINE SODIUM 25 MCG TABLET PO SCH (06:36)
[2018-01-24] MEDS: AZITHROMYCIN 250 MG TABLET PO SCH (08:00)
[2018-01-24] MEDS: LITHIUM CARBONATE 300 MG CAPSULE PO SCH ×2 (08:00→16:32)
[2018-01-24] MEDS: LamoTRIgine 25 MG TABLET PO SCH ×2 (08:00→16:32)
[2018-01-24] MEDS: GABAPENTIN 300 MG CAPSULE PO SCH ×3 (08:01→16:32)
[2018-01-24] MEDS: DOCUSATE SODIUM 100 MG CAPSULE PO SCH (08:01)
[2018-01-24] MEDS: SitaGLIPtin PHOSPHATE 50 MG TABLET PO SCH (08:01)
[2018-01-24] MEDS: OMEPRAZOLE 20 MG CAPSULE PO SCH (08:01)
[2018-01-24] MEDS: LISINOPRIL 10 MG TABLET PO SCH (08:01)
[2018-01-24 08:02] VITALS: BP 141/80
[2018-01-24] MEDS: SIMVASTATIN 10 MG TABLET PO SCH (08:03)
[2018-01-24] MEDS: LORazepam 2 MG TABLET PO PRN (09:26)
[2018-01-24] MEDS: HALOPERIDOL 5 MG TABLET PO PRN (09:26)
[2018-01-24 10:48] LABS: GLUCOMETER DEV NAME(LOC) 3EX 1; GLUCOSE,POINT OF CARE 150 MG/DL (70-110)
[2018-01-24 11:23] LABS: GLUCOMETER DEV NAME(LOC) 3EX 1; GLUCOSE,POINT OF CARE 114 MG/DL (70-110)
[2018-01-24 20:03] VITALS: BP 138/84
[2018-01-24] MEDS: HALOPERIDOL 5 MG TABLET PO SCH (20:12)
[2018-01-24 22:48] LABS: GLUCOMETER DEV NAME(LOC) 3EX 1; GLUCOSE,POINT OF CARE 184 MG/DL (70-110)
[2018-01-24] MEDS: INSULIN LISPRO 100 UNITS/ML SQ PRN (23:14)
[2018-01-25 05:30] VITALS: BP 138/74
[2018-01-25] MEDS: HALOPERIDOL 5 MG TABLET PO PRN (06:08)
[2018-01-25] MEDS: INSULIN LISPRO 100 UNITS/ML SQ PRN ×2 (06:56→11:28)
[2018-01-25] MEDS: LEVOTHYROXINE SODIUM 25 MCG TABLET PO SCH (07:05)
[2018-01-25] MEDS: AZITHROMYCIN 250 MG TABLET PO SCH (09:01)
[2018-01-25] MEDS: OMEPRAZOLE 20 MG CAPSULE PO SCH (09:02)
[2018-01-25] MEDS: LITHIUM CARBONATE 300 MG CAPSULE PO SCH ×2 (09:02→16:26)
[2018-01-25] MEDS: SIMVASTATIN 10 MG TABLET PO SCH (09:02)
[2018-01-25] MEDS: GABAPENTIN 300 MG CAPSULE PO SCH ×3 (09:02→16:26)
[2018-01-25] MEDS: LamoTRIgine 25 MG TABLET PO SCH ×2 (09:02→16:26)
[2018-01-25] MEDS: SitaGLIPtin PHOSPHATE 50 MG TABLET PO SCH (09:02)
[2018-01-25] MEDS: DOCUSATE SODIUM 100 MG CAPSULE PO SCH (09:02)
[2018-01-25] MEDS: LISINOPRIL 10 MG TABLET PO SCH (09:02)
[2018-01-25 09:42] VITALS: BP 160/80
[2018-01-25 11:34] LABS: GLUCOMETER DEV NAME(LOC) 3EX 1; GLUCOSE,POINT OF CARE 143 MG/DL (70-110)
[2018-01-25] MEDS: HALOPERIDOL 5 MG TABLET PO SCH (20:29)
[2018-01-25 20:55] VITALS: BP 148/83
[2018-01-25 23:04] LABS: GLUCOMETER DEV NAME(LOC) 3EX 1; GLUCOSE,POINT OF CARE 101 MG/DL (70-110)
[2018-01-26 00:05] VITALS: BP 140/80
[2018-01-26] MEDS: ZOLPIDEM TARTRATE 10 MG TABLET PO PRN ×2 (00:06→23:44)
[2018-01-26 06:34] LABS: GLUCOMETER DEV NAME(LOC) 3EI C; GLUCOSE,POINT OF CARE 101 MG/DL (70-110)
[2018-01-26] MEDS: LEVOTHYROXINE SODIUM 25 MCG TABLET PO SCH (06:57)
[2018-01-26] MEDS: SitaGLIPtin PHOSPHATE 50 MG TABLET PO SCH (08:31)
[2018-01-26] MEDS: DOCUSATE SODIUM 100 MG CAPSULE PO SCH (08:31)
[2018-01-26] MEDS: LITHIUM CARBONATE 300 MG CAPSULE PO SCH ×2 (08:31→16:55)
[2018-01-26] MEDS: SIMVASTATIN 10 MG TABLET PO SCH (08:31)
[2018-01-26] MEDS: LamoTRIgine 25 MG TABLET PO SCH ×2 (08:31→16:56)
[2018-01-26] MEDS: OMEPRAZOLE 20 MG CAPSULE PO SCH (08:31)
[2018-01-26] MEDS: LISINOPRIL 10 MG TABLET PO SCH (08:31)
[2018-01-26] MEDS: GABAPENTIN 300 MG CAPSULE PO SCH ×3 (08:31→16:55)
[2018-01-26] MEDS: IBUPROFEN 600 MG TABLET PO PRN (09:10)
[2018-01-26 09:11] VITALS: BP 124/73
[2018-01-26 11:18] LABS: GLUCOMETER DEV NAME(LOC) 3EX 1; GLUCOSE,POINT OF CARE 113 MG/DL (70-110)
[2018-01-26 16:23] LABS: GLUCOMETER DEV NAME(LOC) 3EX 1; GLUCOSE,POINT OF CARE 109 MG/DL (70-110)
[2018-01-26 19:06] VITALS: BP 138/85
[2018-01-26] MEDS: HALOPERIDOL 5 MG TABLET PO SCH (20:25)
[2018-01-26 21:23] LABS: GLUCOMETER DEV NAME(LOC) 3EX 1; GLUCOSE,POINT OF CARE 146 MG/DL (70-110)
[2018-01-26] MEDS: INSULIN LISPRO 100 UNITS/ML SQ PRN (21:26)
[2018-01-26 23:52] VITALS: BP 120/71
[2018-01-27 02:15] VITALS: BP 125/79
[2018-01-27 05:44] LABS: GLUCOMETER DEV NAME(LOC) 3EI C; GLUCOSE,POINT OF CARE 102 MG/DL (70-110)
[2018-01-27] MEDS: LEVOTHYROXINE SODIUM 25 MCG TABLET PO SCH (06:50)
[2018-01-27 08:05] VITALS: BP 128/76
[2018-01-27] MEDS: LISINOPRIL 10 MG TABLET PO SCH (08:24)
[2018-01-27] MEDS: SitaGLIPtin PHOSPHATE 50 MG TABLET PO SCH (08:24)
[2018-01-27] MEDS: OMEPRAZOLE 20 MG CAPSULE PO SCH (08:24)
[2018-01-27] MEDS: LITHIUM CARBONATE 300 MG CAPSULE PO SCH ×2 (08:24→16:54)
[2018-01-27] MEDS: GABAPENTIN 300 MG CAPSULE PO SCH ×3 (08:24→16:54)
[2018-01-27] MEDS: DOCUSATE SODIUM 100 MG CAPSULE PO SCH (08:24)
[2018-01-27] MEDS: LamoTRIgine 25 MG TABLET PO SCH ×2 (08:24→16:54)
[2018-01-27] MEDS: SIMVASTATIN 10 MG TABLET PO SCH (08:25)
[2018-01-27] MEDS: HALOPERIDOL 5 MG TABLET PO PRN (09:21)
[2018-01-27 10:13] LABS: GLUCOMETER DEV NAME(LOC) 3EI C; GLUCOSE,POINT OF CARE 173 MG/DL (70-110)
[2018-01-27 11:18] LABS: GLUCOMETER DEV NAME(LOC) 3EX 1; GLUCOSE,POINT OF CARE 103 MG/DL (70-110)
[2018-01-27 17:00] VITALS: BP 129/74
[2018-01-27 17:14] LABS: GLUCOMETER DEV NAME(LOC) 3EX 1; GLUCOSE,POINT OF CARE 166 MG/DL (70-110)
[2018-01-27] MEDS: INSULIN LISPRO 100 UNITS/ML SQ PRN (17:26)
[2018-01-27] MEDS ORDERED: HALO5TAB2 PO (19:11)
[2018-01-27] MEDS ORDERED: LITH300C3 PO (19:11)
[2018-01-27] MEDS ORDERED: DSS100 PO (19:16)
== END 2018-01-27 20:15 | disposition home or self-care (01) | DRG 885 ==
LOC: 3EX 18:10
PROVIDERS: ADMIT Psychiatry & Neurology Psychiatry; ATTEND Psychiatry & Neurology Psychiatry
DX: F25.9 Schizoaffective disorder, unspecified (principal); J18.9 Pneumonia, unspecified organism; J44.0 Chronic obstructive pulmonary disease with (acute) lower respiratory infection; E78.00 Pure hypercholesterolemia, unspecified; E66.9 Obesity, unspecified; E11.9 Type 2 diabetes mellitus without complications; F41.9 Anxiety disorder, unspecified; G47.33 Obstructive sleep apnea (adult) (pediatric); I10 Essential (primary) hypertension; K59.00 Constipation, unspecified; K74.60 Unspecified cirrhosis of liver; E03.9 Hypothyroidism, unspecified; Z59.0 Homelessness; Z79.890 Hormone replacement therapy; Z79.899 Other long term (current) drug therapy; Z87.891 Personal history of nicotine dependence; Z79.84 Long term (current) use of oral hypoglycemic drugs; Z68.38 Body mass index [BMI] 38.0-38.9, adult
CPT/HCPCS: 87081; 90471; 94660

== ENCOUNTER 2018-03-11 00:39 | Emergency (ER) | payer MEDICARE, OTHER ==
[~2018-03-11] VITALS: Ht 172.7 cm; Wt 113.6 kg
[~2018-03-11 00:39] MED LIST changes: +DSS100 PO; -GLYB5 PO; +HALO5TAB2 PO; +LITH300C3 PO; -PALI234D IM
[2018-03-11 00:58] LABS: GLUCOSE,POINT OF CARE 100 MG/DL (70-110)
[2018-03-11] MEDS ORDERED: METF-960 PO (01:03)
[2018-03-11] MEDS ORDERED: METO25XL PO (01:03)
[2018-03-11] MEDS ORDERED: LAMO100 PO (01:03)
[2018-03-11] MEDS ORDERED: QUET300T2 PO (01:03)
[2018-03-11] MEDS ORDERED: TERB250 PO (01:03)
[2018-03-11] MEDS ORDERED: MELA5TAB3 PO (01:03)
[2018-03-11] MEDS ORDERED: FLUT1AER IH (01:03)
[2018-03-11] MEDS ORDERED: LURA120T PO (01:03)
[2018-03-11] MEDS ORDERED: PANT40TA25 PO (01:03)
[2018-03-11] MEDS ORDERED: GLIP5 PO (01:03)
[2018-03-11] MEDS ORDERED: ZIPRASIDONE HCL 40 MG CAPSULE PO ONE (03:00)
[2018-03-11 04:03] VITALS: BP 145/92
== END 2018-03-11 04:26 | disposition home or self-care (01) ==
LOC: EMS 00:40
DX: F31.9 Bipolar disorder, unspecified (principal); Z76.0 Encounter for issue of repeat prescription; F41.9 Anxiety disorder, unspecified; J44.9 Chronic obstructive pulmonary disease, unspecified; E11.9 Type 2 diabetes mellitus without complications; E78.00 Pure hypercholesterolemia, unspecified; I10 Essential (primary) hypertension; E03.9 Hypothyroidism, unspecified; F20.9 Schizophrenia, unspecified; Z79.84 Long term (current) use of oral hypoglycemic drugs; Z87.891 Personal history of nicotine dependence; Z79.899 Other long term (current) drug therapy; Z98.890 Other specified postprocedural states
CPT/HCPCS: 99283

== ENCOUNTER 2018-05-22 13:17 | Emergency (ER) | payer MEDICARE, OTHER ==
[~2018-05-22] VITALS: Ht 172.7 cm; Wt 114.5 kg
[~2018-05-22 13:17] MED LIST changes: +FLUT1AER IH; -GABA-531 PO; +GLIP5 PO; -HALO5TAB2 PO; +LAMO100 PO; -LAMO25 PO; +LURA120T PO; +MELA5TAB3 PO; +METF-960 PO; +METO25XL PO; -OMEP20 PO; +PANT40TA25 PO; +QUET300T2 PO; +TERB250 PO
[2018-05-22] MEDS ORDERED: HALO10 PO (13:29)
[2018-05-22] MEDS ORDERED: ZOLP10TA7 PO (13:29)
[2018-05-22 13:38] LABS: GLUCOSE,POINT OF CARE 282 MG/DL (70-110)
[2018-05-22] MEDS ORDERED: HALOPERIDOL 5 MG TABLET PO ONE (14:45)
[2018-05-22 15:02] VITALS: BP 137/81
== END 2018-05-22 15:03 | disposition home or self-care (01) ==
LOC: EMS 13:18
DX: F20.9 Schizophrenia, unspecified (principal); F31.9 Bipolar disorder, unspecified; F41.9 Anxiety disorder, unspecified; E03.9 Hypothyroidism, unspecified; I10 Essential (primary) hypertension; E78.00 Pure hypercholesterolemia, unspecified; E11.9 Type 2 diabetes mellitus without complications; Z79.84 Long term (current) use of oral hypoglycemic drugs; Z79.899 Other long term (current) drug therapy; Z87.891 Personal history of nicotine dependence

== ENCOUNTER 2019-03-12 14:18 | Emergency (ER) | payer MEDICARE, OTHER ==
[~2019-03-12] VITALS: Ht 172.7 cm; Wt 114.1 kg
[~2019-03-12 14:18] MED LIST changes: -GLIP5 PO; +HALO10 PO; -LAMO100 PO; -LURA120T PO; -MELA5TAB3 PO; -METO25XL PO; -PANT40TA25 PO; -QUET300T2 PO; +ZOLP10TA7 PO
[2019-03-12 14:41] LABS: GLUCOSE,POINT OF CARE 206 MG/DL (70-110)
[2019-03-12] MEDS ORDERED: LITH300C3 PO (14:44)
[2019-03-12] MEDS ORDERED: ATOR10TA84 PO (14:44)
[2019-03-12] MEDS ORDERED: DIPH50 PO (14:44)
[2019-03-12] MEDS ORDERED: ALBU8.5H8 IH (14:44)
[2019-03-12] MEDS ORDERED: IBUP-2071 PO (14:44)
[2019-03-12 18:20] VITALS: BP 128/74
== END 2019-03-12 18:24 | disposition home or self-care (01) ==
LOC: EMS 14:21
DX: R45.4 Irritability and anger (principal); F41.9 Anxiety disorder, unspecified; F31.9 Bipolar disorder, unspecified; E11.9 Type 2 diabetes mellitus without complications; E78.00 Pure hypercholesterolemia, unspecified; I10 Essential (primary) hypertension; E03.9 Hypothyroidism, unspecified; Z86.59 Personal history of other mental and behavioral disorders; Z87.19 Personal history of other diseases of the digestive system; Z87.891 Personal history of nicotine dependence; Z79.899 Other long term (current) drug therapy; Z79.84 Long term (current) use of oral hypoglycemic drugs

== ENCOUNTER 2019-03-17 17:00 | Emergency (ER) | payer MEDICARE, OTHER ==
[~2019-03-17] VITALS: Ht 172.7 cm; Wt 113.6 kg
[~2019-03-17 17:00] MED LIST changes: +ALBU8.5H8 IH; +ATOR10TA84 PO; +DIPH50 PO; -DSS100 PO; -FLUT1AER IH; -HALO10 PO; +IBUP-2071 PO; -SIMV-259 PO; -TERB250 PO; -ZOLP10TA7 PO
[2019-03-17 17:18] VITALS: BP 144/98
[2019-03-17 17:31] LABS: GLUCOSE,POINT OF CARE 114 MG/DL (70-110)
[2019-03-17 18:06] LABS: BASOPHILS % (AUTO) 1.2 % (0.0-2.0); EOSINOPHILS % (AUTO) 3.1 % (1.0-6.0); HEMATOCRIT 36.2 % (41-53); HEMOGLOBIN 12.5 g/dL (13.5-17.5); LYMPHOCYTES # (AUTO) 1.3 K/uL (1.0-4.8); LYMPHOCYTES % (AUTO) 16.6 % (22.0-44.0); MEAN CORPUSCULAR HEMOGLOBIN 33.6 pg (26.0-34.0); MEAN CORPUSCULAR HGB CONC 34.5 G/dL (31.0-37.0); MEAN CORPUSCULAR VOLUME 98 fL (80-100); MONOCYTES # (AUTO) 0.7 K/uL (0.1-1.0); NEUTROPHILS # (AUTO) 5.6 K/uL (1.8-7.7); NEUTROPHILS % (AUTO) 70.1 % (40.0-70.0); PLATELET COUNT (AUTO) 138 K/uL (150-450); RED BLOOD CELL COUNT(AUTO) 3.71 MIL/uL (4.50-5.90); RED CELL DISTRIBUTION WIDTH 13.7 % (11.5-14.5)
[2019-03-17 18:40] LABS: ALANINE AMINOTRANSFERASE 46 U/L (12-78); ALBUMIN 4.3 g/dL (3.4-5.0); ALKALINE PHOSPHATASE 76 U/L (46-116); ANION GAP 12 mmol/L (8-16); ASPARTATE AMINOTRANSFERASE 35 U/L (15-37); BILIRUBIN,TOTAL 0.9 mg/dL (0.1-1.0); CALCIUM, TOTAL 9.3 mg/dL (8.8-10.5); CARBON DIOXIDE 24 mmol/L (22-29); CHLORIDE 102 mmol/L (98-107); CREATININE 0.98 mg/dL (0.60-1.30); GLOMERULAR FILTR. RATE CALC > 60 mL/min (>60); GLUCOSE,RANDOM 132 mg/dL (70-110); POTASSIUM 3.8 mmol/L (3.5-5.1); SODIUM SERUM 138 mmol/L (136-145); TOTAL PROTEIN, SERUM 8.9 g/dL (6.4-8.2); UREA NITROGEN, BLOOD 13 mg/dL (7-18)
[2019-03-17 19:59] LABS: LITHIUM 0.43 mmol/L (0.60-1.20)
== END 2019-03-17 21:17 | disposition left against medical advice (07) ==
LOC: EMS 17:01
DX: Z53.21 Procedure and treatment not carried out due to patient leaving prior to being seen by health care provider (principal)
CPT/HCPCS: 36415; 80053; 80178; 82962; 85025; G0480

== ENCOUNTER 2019-03-18 23:38 | Inpatient (IN) | payer MEDICARE, MEDICAID ==
[~2019-03-18] VITALS: Ht 172.7 cm; Wt 114.8 kg
[2019-03-19 03:31] LABS: GLUCOMETER DEV NAME(LOC) BV2S.; GLUCOSE,POINT OF CARE 123 MG/DL (70-110)
[2019-03-19 06:07] VITALS: BP 104/68
[2019-03-19] MEDS ORDERED: GLUCAGON,HUMAN RECOMBINANT 1 MG VIAL IM PRN (06:45)
[2019-03-19] MEDS ORDERED: ALBUTEROL SULFATE HFA 90 MCG/PUFF 8 GM INHALER IH PRN (06:45)
[2019-03-19] MEDS ORDERED: INSULIN LISPRO 100 UNITS/ML SQ PRN (06:45)
[2019-03-19] MEDS: MetFORMIN HCL 500 MG TABLET PO SCH ×2 (07:03→16:33)
[2019-03-19] MEDS ORDERED: IBUPROFEN 600 MG TABLET PO PRN (07:15)
[2019-03-19] MEDS ORDERED: ACETAMINOPHEN 325 MG TABLET PO PRN (07:15)
[2019-03-19 08:25] VITALS: BP 118/75
[2019-03-19] MEDS ORDERED: SitaGLIPtin PHOSPHATE 50 MG TABLET PO SCH (09:00)
[2019-03-19] MEDS ORDERED: IBUPROFEN 800 MG TABLET PO SCH (09:00)
[2019-03-19] MEDS: LISINOPRIL 10 MG TABLET PO SCH (09:11)
[2019-03-19 11:11] LABS: GLUCOMETER DEV NAME(LOC) BV2X.; GLUCOSE,POINT OF CARE 131 MG/DL (70-110)
[2019-03-19 16:16] LABS: GLUCOMETER DEV NAME(LOC) 3E.I; GLUCOSE,POINT OF CARE 120 MG/DL (70-110)
[2019-03-19] MEDS: LITHIUM CARBONATE 300 MG CAPSULE PO SCH (16:34)
[2019-03-19 17:43] VITALS: BP 121/77
[2019-03-19] MEDS: HALOPERIDOL 10 MG TABLET PO SCH (20:53)
[2019-03-19] MEDS: ATORVASTATIN CALCIUM 10 MG TABLET PO SCH (20:53)
[2019-03-19 21:05] LABS: GLUCOMETER DEV NAME(LOC) 3E.I; GLUCOSE,POINT OF CARE 129 MG/DL (70-110)
[2019-03-19] MEDS ORDERED: DEXTROSE 50%-WATER 25 GM/50 ML SYG IVP PRN (21:15)
[2019-03-20 05:22] LABS: GLUCOMETER DEV NAME(LOC) 3E.I; GLUCOSE,POINT OF CARE 119 MG/DL (70-110)
[2019-03-20 06:37] LABS: EOSINOPHILS % (AUTO) 5.5 % (1.0-6.0); HEMATOCRIT 32.9 % (41-53); HEMOGLOBIN 11.3 g/dL (13.5-17.5); LYMPHOCYTES % (AUTO) 17.5 % (22.0-44.0); MEAN CORPUSCULAR HEMOGLOBIN 33.6 pg (26.0-34.0); MEAN CORPUSCULAR HGB CONC 34.4 G/dL (31.0-37.0); MEAN CORPUSCULAR VOLUME 98 fL (80-100); MONOCYTES # (AUTO) 0.8 K/uL (0.1-1.0); NEUTROPHILS # (AUTO) 3.7 K/uL (1.8-7.7); PLATELET COUNT (AUTO) 112 K/uL (150-450); RED BLOOD CELL COUNT(AUTO) 3.37 MIL/uL (4.50-5.90); RED CELL DISTRIBUTION WIDTH 13.6 % (11.5-14.5)
[2019-03-20] MEDS: LEVOTHYROXINE SODIUM 25 MCG TABLET PO SCH (06:40)
[2019-03-20] MEDS: MetFORMIN HCL 500 MG TABLET PO SCH ×2 (06:40→17:33)
[2019-03-20 06:47] LABS: LITHIUM 0.25 mmol/L (0.60-1.20)
[2019-03-20 07:01] LABS: ALANINE AMINOTRANSFERASE 47 U/L (12-78); ALBUMIN 3.5 g/dL (3.4-5.0); ALKALINE PHOSPHATASE 61 U/L (46-116); ANION GAP 7 mmol/L (8-16); ASPARTATE AMINOTRANSFERASE 35 U/L (15-37); CALCIUM, TOTAL 9.1 mg/dL (8.8-10.5); CARBON DIOXIDE 25 mmol/L (22-29); CHLORIDE 105 mmol/L (98-107); CREATININE 0.75 mg/dL (0.60-1.30); FREE T4 (FREE THYROXINE) 1.18 ng/dL (0.76-1.46); GLOMERULAR FILTR. RATE CALC > 60 mL/min (>60); GLUCOSE,RANDOM 129 mg/dL (70-110); SODIUM SERUM 137 mmol/L (136-145); THYROID STIMULATING HORMONE 1.03 uIU/mL (0.36-3.74); TOTAL PROTEIN, SERUM 7.6 g/dL (6.4-8.2); UREA NITROGEN, BLOOD 12 mg/dL (7-18)
[2019-03-20 07:07] LABS: HEMOGLOBIN A1C 6.7 % (4.5-6.2)
[2019-03-20] MEDS: LITHIUM CARBONATE 300 MG CAPSULE PO SCH ×2 (08:36→16:14)
[2019-03-20] MEDS: SitaGLIPtin PHOSPHATE 100 MG TABLET PO SCH (08:37)
[2019-03-20] MEDS: LISINOPRIL 10 MG TABLET PO SCH (08:37)
[2019-03-20 09:29] VITALS: BP 115/68
[2019-03-20 16:05] LABS: GLUCOMETER DEV NAME(LOC) 3E.I; GLUCOSE,POINT OF CARE 102 MG/DL (70-110)
[2019-03-20 16:10] LABS: GLUCOMETER DEV NAME(LOC) 3E.I; GLUCOSE,POINT OF CARE 118 MG/DL (70-110)
[2019-03-20 17:25] VITALS: BP 121/64
[2019-03-20] MEDS ORDERED: ZOLPIDEM TARTRATE 10 MG TABLET PO PRN (18:00)
[2019-03-20] MEDS ORDERED: HALOPERIDOL 5 MG TABLET PO PRN (18:00)
[2019-03-20] MEDS ORDERED: LORazepam 2 MG TABLET PO PRN (18:00)
[2019-03-20] MEDS ORDERED: SITA100 PO (18:08)
[2019-03-20] MEDS: ATORVASTATIN CALCIUM 10 MG TABLET PO SCH (20:55)
[2019-03-20] MEDS: HALOPERIDOL 10 MG TABLET PO SCH (20:55)
[2019-03-20 21:21] LABS: GLUCOMETER DEV NAME(LOC) 3E.I; GLUCOSE,POINT OF CARE 106 MG/DL (70-110)
[2019-03-21 06:26] LABS: GLUCOMETER DEV NAME(LOC) 3E.I; GLUCOSE,POINT OF CARE 103 MG/DL (70-110)
[2019-03-21] MEDS: INSULIN LISPRO 100 UNITS/ML SQ PRN (06:31)
[2019-03-21] MEDS: LEVOTHYROXINE SODIUM 25 MCG TABLET PO SCH (06:33)
[2019-03-21] MEDS: MetFORMIN HCL 500 MG TABLET PO SCH ×2 (06:34→16:45)
[2019-03-21 08:12] VITALS: BP 114/60
[2019-03-21] MEDS: SitaGLIPtin PHOSPHATE 100 MG TABLET PO SCH (09:19)
[2019-03-21] MEDS: LISINOPRIL 10 MG TABLET PO SCH (09:19)
[2019-03-21] MEDS: LITHIUM CARBONATE 300 MG CAPSULE PO SCH ×2 (09:19→16:45)
[2019-03-21 11:56] LABS: GLUCOMETER DEV NAME(LOC) 3E.I; GLUCOSE,POINT OF CARE 107 MG/DL (70-110)
[2019-03-21 16:23] VITALS: BP 131/76
[2019-03-21 16:47] LABS: GLUCOMETER DEV NAME(LOC) 3E.I; GLUCOSE,POINT OF CARE 122 MG/DL (70-110)
[2019-03-21] MEDS: ATORVASTATIN CALCIUM 10 MG TABLET PO SCH (20:57)
[2019-03-21] MEDS: HALOPERIDOL 10 MG TABLET PO SCH (20:57)
[2019-03-21 21:05] LABS: GLUCOMETER DEV NAME(LOC) 3E.I; GLUCOSE,POINT OF CARE 108 MG/DL (70-110)
[2019-03-22 05:31] LABS: GLUCOMETER DEV NAME(LOC) 3E.I; GLUCOSE,POINT OF CARE 105 MG/DL (70-110)
[2019-03-22] MEDS: LEVOTHYROXINE SODIUM 25 MCG TABLET PO SCH (06:47)
[2019-03-22] MEDS: MetFORMIN HCL 500 MG TABLET PO SCH ×2 (06:47→16:24)
[2019-03-22 08:05] VITALS: BP 109/69
[2019-03-22] MEDS: LITHIUM CARBONATE 300 MG CAPSULE PO SCH ×2 (08:47→16:24)
[2019-03-22] MEDS: SitaGLIPtin PHOSPHATE 100 MG TABLET PO SCH (08:48)
[2019-03-22] MEDS: LISINOPRIL 10 MG TABLET PO SCH (08:48)
[2019-03-22 11:52] LABS: GLUCOMETER DEV NAME(LOC) 3E.I; GLUCOSE,POINT OF CARE 117 MG/DL (70-110)
[2019-03-22] MEDS: INSULIN LISPRO 100 UNITS/ML SQ PRN (12:08)
[2019-03-22 17:01] LABS: GLUCOMETER DEV NAME(LOC) 3E.I; GLUCOSE,POINT OF CARE 96 MG/DL (70-110)
[2019-03-22 17:52] VITALS: BP 131/73
[2019-03-22] MEDS: HALOPERIDOL 10 MG TABLET PO SCH (20:39)
[2019-03-22] MEDS: ATORVASTATIN CALCIUM 10 MG TABLET PO SCH (20:39)
[2019-03-22 20:50] LABS: GLUCOMETER DEV NAME(LOC) 3E.I; GLUCOSE,POINT OF CARE 97 MG/DL (70-110)
[2019-03-23 06:16] LABS: GLUCOMETER DEV NAME(LOC) 3E.I; GLUCOSE,POINT OF CARE 102 MG/DL (70-110)
[2019-03-23] MEDS: LEVOTHYROXINE SODIUM 25 MCG TABLET PO SCH (06:36)
[2019-03-23] MEDS: MetFORMIN HCL 500 MG TABLET PO SCH ×2 (06:36→17:18)
[2019-03-23] MEDS: INSULIN LISPRO 100 UNITS/ML SQ PRN ×2 (06:36→11:18)
[2019-03-23 08:00] VITALS: BP 119/69
[2019-03-23] MEDS: LITHIUM CARBONATE 300 MG CAPSULE PO SCH ×2 (09:18→16:19)
[2019-03-23] MEDS: SitaGLIPtin PHOSPHATE 100 MG TABLET PO SCH (09:18)
[2019-03-23] MEDS: LISINOPRIL 10 MG TABLET PO SCH (09:18)
[2019-03-23 11:26] LABS: GLUCOMETER DEV NAME(LOC) 3E.I; GLUCOSE,POINT OF CARE 101 MG/DL (70-110)
[2019-03-23 16:26] LABS: GLUCOMETER DEV NAME(LOC) 3E.I; GLUCOSE,POINT OF CARE 122 MG/DL (70-110)
[2019-03-23] MEDS: HALOPERIDOL 10 MG TABLET PO SCH (21:01)
[2019-03-23] MEDS: ATORVASTATIN CALCIUM 10 MG TABLET PO SCH (21:01)
[2019-03-23 21:46] LABS: GLUCOMETER DEV NAME(LOC) 3E.I; GLUCOSE,POINT OF CARE 120 MG/DL (70-110)
[2019-03-23 23:17] VITALS: BP 117/67
[2019-03-24 05:25] LABS: GLUCOMETER DEV NAME(LOC) 3E.I; GLUCOSE,POINT OF CARE 99 MG/DL (70-110)
[2019-03-24] MEDS: MetFORMIN HCL 500 MG TABLET PO SCH (06:40)
[2019-03-24] MEDS: LEVOTHYROXINE SODIUM 25 MCG TABLET PO SCH (06:40)
[2019-03-24] MEDS: LISINOPRIL 10 MG TABLET PO SCH (08:27)
[2019-03-24] MEDS: LITHIUM CARBONATE 300 MG CAPSULE PO SCH (08:27)
[2019-03-24] MEDS: SitaGLIPtin PHOSPHATE 100 MG TABLET PO SCH (08:27)
[2019-03-24 08:46] VITALS: BP 118/87
[2019-03-24] MEDS ORDERED: ATOR10TA84 PO (10:18)
[2019-03-24] MEDS ORDERED: LEVO25TA9 PO (10:19)
[2019-03-24] MEDS ORDERED: LISI-661 PO (10:20)
[2019-03-24] MEDS ORDERED: METF-446 PO (10:20)
[2019-03-24] MEDS ORDERED: SITA100 PO (10:21)
[2019-03-24] MEDS ORDERED: HALO10TA3 PO (10:25)
[2019-03-24] MEDS: INSULIN LISPRO 100 UNITS/ML SQ PRN (11:12)
[2019-03-24 11:16] LABS: GLUCOMETER DEV NAME(LOC) 3EX.; GLUCOSE,POINT OF CARE 76 MG/DL (70-110)
== END 2019-03-24 13:40 | disposition home or self-care (01) | DRG 885 ==
LOC: B2X 03-19 04:05 → 3EX 03-19 14:37
PROVIDERS: ADMIT Psychiatry & Neurology Psychiatry; ATTEND Psychiatry & Neurology Psychiatry
DX: F25.9 Schizoaffective disorder, unspecified (principal); D64.9 Anemia, unspecified; D69.6 Thrombocytopenia, unspecified; E03.9 Hypothyroidism, unspecified; E11.9 Type 2 diabetes mellitus without complications; E78.00 Pure hypercholesterolemia, unspecified; E78.5 Hyperlipidemia, unspecified; F31.9 Bipolar disorder, unspecified; G47.33 Obstructive sleep apnea (adult) (pediatric); I10 Essential (primary) hypertension; F41.9 Anxiety disorder, unspecified; K21.9 Gastro-esophageal reflux disease without esophagitis; Z82.49 Family history of ischemic heart disease and other diseases of the circulatory system; Z83.3 Family history of diabetes mellitus; Z87.891 Personal history of nicotine dependence
CPT/HCPCS: 83036; 84439; 84443; 94660; G0378; G0480

== ENCOUNTER → 2019-03-27 | Outpatient (CLI) | payer MEDICARE, OTHER ==
[~2019-03-27] MED LIST changes: -ALBU8.5H8 IH; -DIPH50 PO; +HALO10TA3 PO; -IBUP-2071 PO; +SITA100 PO; -SITA50 PO
[2019-03-27 18:08] LABS: BASOPHILS % (AUTO) 0.7 % (0.0-2.0); EOSINOPHILS % (AUTO) 2.3 % (1.0-6.0); HEMATOCRIT 34.3 % (41-53); HEMOGLOBIN 11.8 g/dL (13.5-17.5); LYMPHOCYTES % (AUTO) 13.1 % (22.0-44.0); MEAN CORPUSCULAR HEMOGLOBIN 33.8 pg (26.0-34.0); MEAN CORPUSCULAR HGB CONC 34.2 G/dL (31.0-37.0); MEAN CORPUSCULAR VOLUME 99 fL (80-100); MONOCYTES # (AUTO) 0.8 K/uL (0.1-1.0); MONOCYTES % (AUTO) 10.9 % (2.0-9.0); NEUTROPHILS # (AUTO) 5.4 K/uL (1.8-7.7); PLATELET COUNT (AUTO) 132 K/uL (150-450); RED BLOOD CELL COUNT(AUTO) 3.48 MIL/uL (4.50-5.90); RED CELL DISTRIBUTION WIDTH 13.6 % (11.5-14.5)
[2019-03-27 18:24] LABS: HEMOGLOBIN A1C 6.7 % (4.5-6.2)
[2019-03-27 18:36] LABS: APPEARANCE,URINE CLEAR (CLEAR); BILIRUBIN,URINE NEGATIVE (NEGATIVE); GLUCOSE, URINE (UA) NEGATIVE (NEGATIVE); KETONES,URINE NEGATIVE (NEGATIVE); LEUKOCYTE ESTERASE ,URINE NEGATIVE (NEGATIVE); NITRATE,URINE NEGATIVE (NEGATIVE); OCCULT BLOOD,URINE NEGATIVE (NEGATIVE); PROTEIN,URINE TRACE (NEGATIVE)
[2019-03-27 18:47] LABS: ALANINE AMINOTRANSFERASE 65 U/L (12-78); ALBUMIN 3.9 g/dL (3.4-5.0); ALKALINE PHOSPHATASE 71 U/L (46-116); ANION GAP 13 mmol/L (8-16); ASPARTATE AMINOTRANSFERASE 30 U/L (15-37); BILIRUBIN,TOTAL 0.4 mg/dL (0.1-1.0); CARBON DIOXIDE 21 mmol/L (22-29); CHLORIDE 102 mmol/L (98-107); CHOL/HDL RATIO 1.9 (4.2-7.3); CHOLESTEROL 115 mg/dL (131-200); CREATININE 0.84 mg/dL (0.60-1.30); GLOMERULAR FILTR. RATE CALC > 60 mL/min (>60); GLUCOSE,RANDOM 212 mg/dL (70-110); HDL CHOLESTEROL 60 mg/dL (40-60); LDL CHOL (CALC.) 44 mg/dL (0-130); POTASSIUM 3.3 mmol/L (3.5-5.1); SODIUM SERUM 136 mmol/L (136-145); THYROID STIMULATING HORMONE 0.72 uIU/mL (0.36-3.74); TOTAL PROTEIN, SERUM 8.3 g/dL (6.4-8.2); TRIGLYCERIDES 53 mg/dL (15-150); UREA NITROGEN, BLOOD 7 mg/dL (7-18)
== END | disposition home or self-care (01) ==
LOC: LABMN 17:26
PROVIDERS: ATTEND Internal Medicine
DX: E11.9 Type 2 diabetes mellitus without complications (principal)
CPT/HCPCS: 82043; 82570; 83036; 84443

== ENCOUNTER 2019-04-07 01:45 | Emergency (ER) | payer MEDICARE, OTHER ==
[~2019-04-07] VITALS: Ht 172.7 cm; Wt 113.6 kg
[2019-04-07 03:14] LABS: ANION GAP 7 mmol/L (8-16); CALCIUM, TOTAL 8.8 mg/dL (8.8-10.5); CARBON DIOXIDE 27 mmol/L (22-29); CHLORIDE 102 mmol/L (98-107); CREATININE 0.75 mg/dL (0.60-1.30); GLOMERULAR FILTR. RATE CALC > 60 mL/min (>60); GLUCOSE,RANDOM 111 mg/dL (70-110); POTASSIUM 3.8 mmol/L (3.5-5.1); SODIUM SERUM 136 mmol/L (136-145)
[2019-04-07 03:20] LABS: ALANINE AMINOTRANSFERASE 48 U/L (12-78); ALBUMIN 3.7 g/dL (3.4-5.0); ALKALINE PHOSPHATASE 72 U/L (46-116); ASPARTATE AMINOTRANSFERASE 34 U/L (15-37); BILIRUBIN,TOTAL 0.9 mg/dL (0.1-1.0); LIPASE 401 U/L (73-393); TOTAL PROTEIN, SERUM 8.2 g/dL (6.4-8.2); UREA NITROGEN, BLOOD 12 mg/dL (7-18)
[2019-04-07 03:25] LABS: BASOPHILS % (AUTO) 0.8 % (0.0-2.0); EOSINOPHILS % (AUTO) 4.2 % (1.0-6.0); HEMOGLOBIN 11.6 g/dL (13.5-17.5); LYMPHOCYTES # (AUTO) 1.1 K/uL (1.0-4.8); LYMPHOCYTES % (AUTO) 17.6 % (22.0-44.0); MEAN CORPUSCULAR HEMOGLOBIN 33.3 pg (26.0-34.0); MEAN CORPUSCULAR VOLUME 98 fL (80-100); MONOCYTES # (AUTO) 0.7 K/uL (0.1-1.0); MONOCYTES % (AUTO) 11.3 % (2.0-9.0); NEUTROPHILS # (AUTO) 4.2 K/uL (1.8-7.7); NEUTROPHILS % (AUTO) 66.1 % (40.0-70.0); PLATELET COUNT (AUTO) 115 K/uL (150-450); RED BLOOD CELL COUNT(AUTO) 3.47 MIL/uL (4.50-5.90); RED CELL DISTRIBUTION WIDTH 13.3 % (11.5-14.5)
[2019-04-07 03:27] LABS: APPEARANCE,URINE CLEAR (CLEAR); BILIRUBIN,URINE NEGATIVE (NEGATIVE); GLUCOSE, URINE (UA) NEGATIVE (NEGATIVE); KETONES,URINE NEGATIVE (NEGATIVE); LEUKOCYTE ESTERASE ,URINE NEGATIVE (NEGATIVE); NITRATE,URINE NEGATIVE (NEGATIVE); OCCULT BLOOD,URINE NEGATIVE (NEGATIVE); PH,URINE 5.5 (5.0-8.0); PROTEIN,URINE NEGATIVE (NEGATIVE)
[2019-04-07 03:54] VITALS: BP 129/86
== END 2019-04-07 04:22 | disposition home or self-care (01) ==
LOC: EMS 01:45
DX: K80.20 Calculus of gallbladder without cholecystitis without obstruction (principal); K57.30 Diverticulosis of large intestine without perforation or abscess without bleeding; R16.1 Splenomegaly, not elsewhere classified; I10 Essential (primary) hypertension; E11.9 Type 2 diabetes mellitus without complications; E78.00 Pure hypercholesterolemia, unspecified; F41.9 Anxiety disorder, unspecified; F31.9 Bipolar disorder, unspecified; J44.9 Chronic obstructive pulmonary disease, unspecified; E03.9 Hypothyroidism, unspecified; Z79.84 Long term (current) use of oral hypoglycemic drugs; Z79.899 Other long term (current) drug therapy; Z87.891 Personal history of nicotine dependence
CPT/HCPCS: 74176

== ENCOUNTER 2019-05-04 15:09 | Inpatient (IN) | payer MEDICARE, MEDICAID ==
[~2019-05-04] VITALS: Ht 177.8 cm; Wt 113.0 kg
[2019-05-04 15:35] LABS: GLUCOSE,POINT OF CARE 230 MG/DL (70-110)
[2019-05-04 15:53] LABS: BASOPHILS % (AUTO) 0.9 % (0.0-2.0); EOSINOPHILS % (AUTO) 1.1 % (1.0-6.0); HEMATOCRIT 36.7 % (41-53); HEMOGLOBIN 12.1 g/dL (13.5-17.5); LYMPHOCYTES # (AUTO) 0.9 K/uL (1.0-4.8); LYMPHOCYTES % (AUTO) 10.9 % (22.0-44.0); MEAN CORPUSCULAR HEMOGLOBIN 32.3 pg (26.0-34.0); MEAN CORPUSCULAR VOLUME 98 fL (80-100); MONOCYTES # (AUTO) 0.9 K/uL (0.1-1.0); MONOCYTES % (AUTO) 11.1 % (2.0-9.0); NEUTROPHILS # (AUTO) 6.5 K/uL (1.8-7.7); PLATELET COUNT (AUTO) 133 K/uL (150-450); RED BLOOD CELL COUNT(AUTO) 3.75 MIL/uL (4.50-5.90)
[2019-05-04 16:03] LABS: ANION GAP 10 mmol/L (8-16); CALCIUM, TOTAL 8.9 mg/dL (8.8-10.5); CARBON DIOXIDE 25 mmol/L (22-29); CHLORIDE 99 mmol/L (98-107); CREATININE 1.11 mg/dL (0.60-1.30); GLOMERULAR FILTR. RATE CALC > 60 mL/min (>60); GLUCOSE,RANDOM 240 mg/dL (70-110); POTASSIUM 3.7 mmol/L (3.5-5.1); SODIUM SERUM 134 mmol/L (136-145); UREA NITROGEN, BLOOD 17 mg/dL (7-18)
[2019-05-04 16:07] LABS: AMPHET/METH SCREEN,URINE NEGATIVE (NEGATIVE); BARBITURATE SCREEN, URINE NEGATIVE (NEGATIVE); BENZODIAZEPINES SCREEN,URINE NEGATIVE (NEGATIVE); CANNABINOID SCREEN,URINE NEGATIVE (NEGATIVE); COCAINE SCREEN,URINE NEGATIVE (NEGATIVE); METHADONE SCREEN, URINE NEGATIVE (NEGATIVE); OPIATE SCREEN,URINE NEGATIVE (NEGATIVE)
[2019-05-04 16:08] LABS: ALANINE AMINOTRANSFERASE 65 U/L (12-78); ALBUMIN 3.7 g/dL (3.4-5.0); ALKALINE PHOSPHATASE 74 U/L (46-116); ASPARTATE AMINOTRANSFERASE 43 U/L (15-37); BILIRUBIN,TOTAL 0.7 mg/dL (0.1-1.0)
[2019-05-04 16:11] LABS: PHENCYCLIDINE SCREEN,URINE NEGATIVE (NEGATIVE)
[2019-05-04] MEDS ORDERED: ZOLPIDEM TARTRATE 10 MG TABLET PO PRN (16:15)
[2019-05-04] MEDS ORDERED: LORazepam 2 MG TABLET PO PRN (16:15)
[2019-05-04] MEDS ORDERED: HALOPERIDOL 5 MG TABLET PO PRN (16:15)
[2019-05-04 16:16] LABS: LITHIUM 0.59 mmol/L (0.60-1.20)
[2019-05-04 17:41] LABS: GLUCOSE,POINT OF CARE 168 MG/DL (70-110)
[2019-05-05 00:50] VITALS: BP 112/73
[2019-05-05 01:16] VITALS: BP 112/73
[2019-05-05 07:32] LABS: CHOL/HDL RATIO 2.1 (4.2-7.3); FREE T4 (FREE THYROXINE) 1.07 ng/dL (0.76-1.46); THYROID STIMULATING HORMONE 0.93 uIU/mL (0.36-3.74)
[2019-05-05 08:05] VITALS: BP 120/75
[2019-05-05] MEDS ORDERED: INSULIN LISPRO 100 UNITS/ML SQ PRN ×2 (10:30→21:15)
[2019-05-05] MEDS ORDERED: GLUCAGON,HUMAN RECOMBINANT 1 MG VIAL IM PRN (10:30)
[2019-05-05] MEDS: LITHIUM CARBONATE 300 MG CAPSULE PO SCH ×2 (10:35→16:08)
[2019-05-05 11:32] LABS: GLUCOMETER DEV NAME(LOC) 3E.I; GLUCOSE,POINT OF CARE 94 MG/DL (70-110)
[2019-05-05 16:19] LABS: GLUCOMETER DEV NAME(LOC) 3E.I; GLUCOSE,POINT OF CARE 197 MG/DL (70-110)
[2019-05-05 17:00] VITALS: BP 124/66
[2019-05-05] MEDS: MetFORMIN HCL 500 MG TABLET PO SCH (17:15)
[2019-05-05 20:25] LABS: GLUCOMETER DEV NAME(LOC) 3E.I; GLUCOSE,POINT OF CARE 87 MG/DL (70-110)
[2019-05-05] MEDS ORDERED: HALOPERIDOL 10 MG TABLET PO SCH (21:00)
[2019-05-05] MEDS ORDERED: ATORVASTATIN CALCIUM 10 MG TABLET PO SCH (21:00)
[2019-05-05] MEDS ORDERED: DEXTROSE 50%-WATER 25 GM/50 ML SYG IVP PRN (21:15)
[2019-05-06 05:39] LABS: GLUCOMETER DEV NAME(LOC) 3EX.; GLUCOSE,POINT OF CARE 112 MG/DL (70-110)
[2019-05-06 06:01] VITALS: BP 118/69
[2019-05-06] MEDS: MetFORMIN HCL 500 MG TABLET PO SCH (06:45)
[2019-05-06] MEDS ORDERED: LEVOTHYROXINE SODIUM 25 MCG TABLET PO SCH (07:00)
[2019-05-06] MEDS: LITHIUM CARBONATE 300 MG CAPSULE PO SCH (08:04)
[2019-05-06 08:46] VITALS: BP 108/55
[2019-05-06] MEDS ORDERED: LISINOPRIL 10 MG TABLET PO SCH (09:00)
[2019-05-06] MEDS ORDERED: SitaGLIPtin PHOSPHATE 100 MG TABLET PO SCH (09:00)
[2019-05-06 11:19] LABS: GLUCOMETER DEV NAME(LOC) 3E.I; GLUCOSE,POINT OF CARE 100 MG/DL (70-110)
== END 2019-05-06 14:55 | disposition home or self-care (01) | DRG 885 ==
LOC: EMS 15:12 → 3EX 23:59
PROVIDERS: ADMIT Psychiatry & Neurology Psychiatry; ATTEND Psychiatry & Neurology Psychiatry
DX: F25.9 Schizoaffective disorder, unspecified (principal); R45.851 Suicidal ideations; D64.9 Anemia, unspecified; D69.6 Thrombocytopenia, unspecified; E03.9 Hypothyroidism, unspecified; E11.9 Type 2 diabetes mellitus without complications; E78.00 Pure hypercholesterolemia, unspecified; E78.5 Hyperlipidemia, unspecified; F31.9 Bipolar disorder, unspecified; F41.9 Anxiety disorder, unspecified; I10 Essential (primary) hypertension; J44.9 Chronic obstructive pulmonary disease, unspecified; K74.60 Unspecified cirrhosis of liver; E66.9 Obesity, unspecified; Z68.35 Body mass index [BMI] 35.0-35.9, adult; Z82.49 Family history of ischemic heart disease and other diseases of the circulatory system; Z83.3 Family history of diabetes mellitus; Z87.891 Personal history of nicotine dependence
CPT/HCPCS: 84439; 84443; G0378; G0480

== ENCOUNTER 2019-05-20 11:11 | Inpatient (IN) | payer MEDICARE, MEDICAID ==
[~2019-05-20] VITALS: Ht 172.7 cm; Wt 114.0 kg
[2019-05-20 11:31] LABS: GLUCOSE,POINT OF CARE 153 MG/DL (70-110)
[2019-05-20 11:47] LABS: BASOPHILS % (AUTO) 0.9 % (0.0-2.0); HEMATOCRIT 37.1 % (41-53); HEMOGLOBIN 12.7 g/dL (13.5-17.5); LYMPHOCYTES # (AUTO) 1.1 K/uL (1.0-4.8); LYMPHOCYTES % (AUTO) 14.6 % (22.0-44.0); MEAN CORPUSCULAR HEMOGLOBIN 32.9 pg (26.0-34.0); MEAN CORPUSCULAR HGB CONC 34.3 G/dL (31.0-37.0); MEAN CORPUSCULAR VOLUME 96 fL (80-100); MONOCYTES # (AUTO) 1.1 K/uL (0.1-1.0); MONOCYTES % (AUTO) 14.1 % (2.0-9.0); NEUTROPHILS # (AUTO) 5.1 K/uL (1.8-7.7); NEUTROPHILS % (AUTO) 67.4 % (40.0-70.0); PLATELET COUNT (AUTO) 134 K/uL (150-450); RED BLOOD CELL COUNT(AUTO) 3.88 MIL/uL (4.50-5.90); RED CELL DISTRIBUTION WIDTH 12.8 % (11.5-14.5)
[2019-05-20 12:06] LABS: ALANINE AMINOTRANSFERASE 53 U/L (12-78); ALBUMIN 3.7 g/dL (3.4-5.0); ALKALINE PHOSPHATASE 82 U/L (46-116); ANION GAP 13 mmol/L (8-16); ASPARTATE AMINOTRANSFERASE 33 U/L (15-37); BILIRUBIN,TOTAL 0.6 mg/dL (0.1-1.0); CARBON DIOXIDE 24 mmol/L (22-29); CHLORIDE 105 mmol/L (98-107); CREATININE 0.72 mg/dL (0.60-1.30); GLOMERULAR FILTR. RATE CALC > 60 mL/min (>60); GLUCOSE,RANDOM 135 mg/dL (70-110); POTASSIUM 3.8 mmol/L (3.5-5.1); SODIUM SERUM 142 mmol/L (136-145); TOTAL PROTEIN, SERUM 8.5 g/dL (6.4-8.2)
[2019-05-20 12:08] LABS: LITHIUM 0.33 mmol/L (0.60-1.20)
[2019-05-20 12:20] LABS: UREA NITROGEN, BLOOD 8 mg/dL (7-18)
[2019-05-20 12:38] LABS: AMPHET/METH SCREEN,URINE NEGATIVE (NEGATIVE); BARBITURATE SCREEN, URINE NEGATIVE (NEGATIVE); BENZODIAZEPINES SCREEN,URINE NEGATIVE (NEGATIVE); CANNABINOID SCREEN,URINE NEGATIVE (NEGATIVE); COCAINE SCREEN,URINE NEGATIVE (NEGATIVE); METHADONE SCREEN, URINE NEGATIVE (NEGATIVE); OPIATE SCREEN,URINE NEGATIVE (NEGATIVE); PHENCYCLIDINE SCREEN,URINE NEGATIVE (NEGATIVE)
[2019-05-20] MEDS ORDERED: HALOPERIDOL 5 MG TABLET PO ONE (13:15)
[2019-05-20] MEDS ORDERED: LORazepam 2 MG TABLET PO PRN (13:15)
[2019-05-20] MEDS ORDERED: LORazepam 2 MG TABLET PO ONE (13:15)
[2019-05-20] MEDS ORDERED: HALOPERIDOL 5 MG TABLET PO PRN (13:15)
[2019-05-20] MEDS ORDERED: ZOLPIDEM TARTRATE 10 MG TABLET PO PRN (13:15)
[2019-05-20 13:58] LABS: APPEARANCE,URINE CLEAR (CLEAR); BILIRUBIN,URINE NEGATIVE (NEGATIVE); GLUCOSE, URINE (UA) 500 mg/dL (NEGATIVE); KETONES,URINE NEGATIVE (NEGATIVE); LEUKOCYTE ESTERASE ,URINE NEGATIVE (NEGATIVE); NITRATE,URINE NEGATIVE (NEGATIVE); OCCULT BLOOD,URINE NEGATIVE (NEGATIVE); PROTEIN,URINE NEGATIVE (NEGATIVE)
[2019-05-20 14:20] LABS: BACTERIA,URINE None Seen /HPF (None Seen); RBC,URINE None Seen /HPF (0-2); SQUAMOUS EPITHELIAL CELL,UR Rare /LPF (None Seen); WBC,URINE 0-2 /HPF (0-5)
[2019-05-20 15:45] VITALS: BP 115/60
[2019-05-20 16:42] LABS: GLUCOMETER DEV NAME(LOC) 3E.I; GLUCOSE,POINT OF CARE 186 MG/DL (70-110)
[2019-05-20] MEDS ORDERED: ALBUTEROL SULFATE HFA 90 MCG/PUFF 8 GM INHALER IH PRN (21:30)
[2019-05-20] MEDS ORDERED: GLUCAGON,HUMAN RECOMBINANT 1 MG VIAL IM PRN (21:30)
[2019-05-20] MEDS ORDERED: DEXTROSE 50%-WATER 25 GM/50 ML SYG IVP PRN (21:30)
[2019-05-20] MEDS ORDERED: INSULIN LISPRO 100 UNITS/ML SQ PRN (21:30)
[2019-05-21 01:29] VITALS: BP 125/87
[2019-05-21 05:47] LABS: GLUCOMETER DEV NAME(LOC) 3EX.; GLUCOSE,POINT OF CARE 244 MG/DL (70-110)
[2019-05-21] MEDS ORDERED: LEVOTHYROXINE SODIUM 25 MCG TABLET PO SCH (07:00)
[2019-05-21] MEDS: MetFORMIN HCL 500 MG TABLET PO SCH ×2 (07:00→17:30)
[2019-05-21] MEDS: INSULIN LISPRO 100 UNITS/ML SQ PRN ×2 (07:03→12:23)
[2019-05-21 07:48] LABS: CHOL/HDL RATIO 2.5 (4.2-7.3); FREE T4 (FREE THYROXINE) 0.99 ng/dL (0.76-1.46); THYROID STIMULATING HORMONE 0.8 uIU/mL (0.36-3.74)
[2019-05-21] MEDS ORDERED: SitaGLIPtin PHOSPHATE 100 MG TABLET PO SCH (09:00)
[2019-05-21] MEDS ORDERED: LISINOPRIL 10 MG TABLET PO SCH (09:00)
[2019-05-21 09:21] VITALS: BP 124/69
[2019-05-21 11:24] LABS: GLUCOMETER DEV NAME(LOC) 3E.I; GLUCOSE,POINT OF CARE 238 MG/DL (70-110)
[2019-05-21] MEDS ORDERED: LITHIUM CARBONATE 300 MG CAPSULE PO SCH (17:15)
[2019-05-21 18:04] VITALS: BP 129/77
[2019-05-21] MEDS ORDERED: ATORVASTATIN CALCIUM 10 MG TABLET PO SCH (21:00)
== END 2019-05-21 19:45 | disposition left against medical advice (07) | DRG 885 ==
LOC: EMS 11:14 → 3EX 14:25
PROVIDERS: ADMIT Psychiatry & Neurology Psychiatry; ATTEND Psychiatry & Neurology Psychiatry
DX: F25.9 Schizoaffective disorder, unspecified (principal); R45.851 Suicidal ideations; E03.9 Hypothyroidism, unspecified; E11.9 Type 2 diabetes mellitus without complications; E78.00 Pure hypercholesterolemia, unspecified; E78.5 Hyperlipidemia, unspecified; F12.90 Cannabis use, unspecified, uncomplicated; F15.90 Other stimulant use, unspecified, uncomplicated; G47.33 Obstructive sleep apnea (adult) (pediatric); I10 Essential (primary) hypertension; J44.9 Chronic obstructive pulmonary disease, unspecified; E66.9 Obesity, unspecified; K21.9 Gastro-esophageal reflux disease without esophagitis; K74.60 Unspecified cirrhosis of liver; Z82.49 Family history of ischemic heart disease and other diseases of the circulatory system; Z83.3 Family history of diabetes mellitus; Z87.891 Personal history of nicotine dependence; Z68.38 Body mass index [BMI] 38.0-38.9, adult
CPT/HCPCS: 83036; 84439; 84443; 87081; G0378; G0480

== ENCOUNTER 2019-08-11 09:04 | Emergency (ER) | payer MEDICARE, MEDICAID ==
[~2019-08-11] VITALS: Ht 175.3 cm; Wt 115.0 kg
[2019-08-11 09:31] LABS: GLUCOSE,POINT OF CARE 179 MG/DL (70-110)
[2019-08-11 09:52] LABS: APPEARANCE,URINE CLOUDY (CLEAR); BILIRUBIN,URINE NEGATIVE (NEGATIVE); GLUCOSE, URINE (UA) NEGATIVE (NEGATIVE); KETONES,URINE NEGATIVE (NEGATIVE); LEUKOCYTE ESTERASE ,URINE MODERATE (NEGATIVE); NITRATE,URINE NEGATIVE (NEGATIVE); OCCULT BLOOD,URINE LARGE (NEGATIVE); PROTEIN,URINE SEE CONFIRM (NEGATIVE); UROBILINOGEN,URINE >=8.0 mg/dL (<=1.0)
[2019-08-11 09:59] LABS: RBC,URINE >100 /HPF (0-2); SULFOSALICYLIC ACID,URINE 3+ (Negative)
[2019-08-11 10:00] LABS: BACTERIA,URINE Few /HPF (None Seen); SQUAMOUS EPITHELIAL CELL,UR Few /LPF (None Seen)
[2019-08-11 10:13] LABS: HEMOGLOBIN 11.9 g/dL (13.5-17.5); RED BLOOD CELL COUNT(AUTO) 3.74 MIL/uL (4.50-5.90)
[2019-08-11 10:14] LABS: BASOPHILS % (AUTO) 0.3 % (0.0-2.0); EOSINOPHILS % (AUTO) 1.5 % (1.0-6.0); HEMATOCRIT 35.5 % (41-53); LYMPHOCYTES # (AUTO) 0.8 K/uL (1.0-4.8); LYMPHOCYTES % (AUTO) 5.9 % (22.0-44.0); MEAN CORPUSCULAR HEMOGLOBIN 31.9 pg (26.0-34.0); MEAN CORPUSCULAR HGB CONC 33.6 G/dL (31.0-37.0); MEAN CORPUSCULAR VOLUME 95 fL (80-100); MONOCYTES # (AUTO) 1.1 K/uL (0.1-1.0); MONOCYTES % (AUTO) 8.9 % (2.0-9.0); NEUTROPHILS # (AUTO) 10.7 K/uL (1.8-7.7); NEUTROPHILS % (AUTO) 83.4 % (40.0-70.0); PLATELET COUNT (AUTO) 128 K/uL (150-450); RED CELL DISTRIBUTION WIDTH 14.3 % (11.5-14.5)
[2019-08-11 10:24] LABS: ANION GAP 9 mmol/L (8-16); CALCIUM, TOTAL 9.1 mg/dL (8.8-10.5); CARBON DIOXIDE 25 mmol/L (22-29); CHLORIDE 103 mmol/L (98-107); CREATININE 0.74 mg/dL (0.60-1.30); GLOMERULAR FILTR. RATE CALC > 60 mL/min (>60); GLUCOSE,RANDOM 167 mg/dL (70-110); POTASSIUM 3.8 mmol/L (3.5-5.1); SODIUM SERUM 137 mmol/L (136-145); UREA NITROGEN, BLOOD 10 mg/dL (7-18)
[2019-08-11 10:30] LABS: ALANINE AMINOTRANSFERASE 56 U/L (12-78); ALBUMIN 3.5 g/dL (3.4-5.0); ALKALINE PHOSPHATASE 92 U/L (46-116); ASPARTATE AMINOTRANSFERASE 31 U/L (15-37); BILIRUBIN,TOTAL 1.1 mg/dL (0.1-1.0); TOTAL PROTEIN, SERUM 7.9 g/dL (6.4-8.2)
[2019-08-11] MEDS ORDERED: LEVOFLOXACIN 500 MG TABLET PO ONE (10:30)
[2019-08-11] MEDS ORDERED: ACETAMINOPHEN 500 MG TABLET PO ONE (10:30)
[2019-08-11] MEDS ORDERED: PHENAZOPYRIDINE HCL 100 MG TABLET PO ONE (10:30)
[2019-08-11] MEDS ORDERED: CEPHALEXIN MONOHYDRATE 500 MG CAPSULE PO ONE (10:30)
[2019-08-11 11:06] VITALS: BP 118/67
== END 2019-08-11 11:40 | disposition home or self-care (01) ==
LOC: EMS 09:06
DX: N30.80 Other cystitis without hematuria (principal); E11.65 Type 2 diabetes mellitus with hyperglycemia; E78.00 Pure hypercholesterolemia, unspecified; E66.9 Obesity, unspecified; E03.9 Hypothyroidism, unspecified; G47.00 Insomnia, unspecified; I10 Essential (primary) hypertension; J44.9 Chronic obstructive pulmonary disease, unspecified; K74.60 Unspecified cirrhosis of liver; F20.9 Schizophrenia, unspecified; F10.20 Alcohol dependence, uncomplicated; F41.9 Anxiety disorder, unspecified; F31.9 Bipolar disorder, unspecified; Z98.890 Other specified postprocedural states; Z87.891 Personal history of nicotine dependence; Z79.899 Other long term (current) drug therapy; Z79.84 Long term (current) use of oral hypoglycemic drugs; Z68.37 Body mass index [BMI] 37.0-37.9, adult
CPT/HCPCS: 87086

== ENCOUNTER 2019-10-23 00:13 | Inpatient (IN) | payer MEDICARE, MEDICAID ==
[~2019-10-23] VITALS: Ht 175.3 cm; Wt 112.2 kg
[2019-10-23 00:36] LABS: GLUCOSE,POINT OF CARE 103 MG/DL (70-110)
[2019-10-23 00:51] LABS: BASOPHILS % (AUTO) 0.9 % (0.0-2.0); EOSINOPHILS % (AUTO) 4.8 % (1.0-6.0); HEMATOCRIT 33.6 % (41-53); HEMOGLOBIN 11.3 g/dL (13.5-17.5); LYMPHOCYTES % (AUTO) 14.7 % (22.0-44.0); MEAN CORPUSCULAR HEMOGLOBIN 32.6 pg (26.0-34.0); MEAN CORPUSCULAR HGB CONC 33.5 G/dL (31.0-37.0); MEAN CORPUSCULAR VOLUME 97 fL (80-100); MONOCYTES # (AUTO) 0.9 K/uL (0.1-1.0); MONOCYTES % (AUTO) 12.8 % (2.0-9.0); NEUTROPHILS # (AUTO) 4.6 K/uL (1.8-7.7); NEUTROPHILS % (AUTO) 66.8 % (40.0-70.0); PLATELET COUNT (AUTO) 122 K/uL (150-450); RED BLOOD CELL COUNT(AUTO) 3.46 MIL/uL (4.50-5.90); RED CELL DISTRIBUTION WIDTH 13.8 % (11.5-14.5)
[2019-10-23 01:11] LABS: ANION GAP 9 mmol/L (8-16); CALCIUM, TOTAL 9.5 mg/dL (8.8-10.5); CARBON DIOXIDE 25 mmol/L (22-29); CHLORIDE 103 mmol/L (98-107); CREATININE 0.86 mg/dL (0.60-1.30); GLOMERULAR FILTR. RATE CALC > 60 mL/min (>60); GLUCOSE,RANDOM 99 mg/dL (70-110); POTASSIUM 3.8 mmol/L (3.5-5.1); SODIUM SERUM 137 mmol/L (136-145); UREA NITROGEN, BLOOD 13 mg/dL (7-18)
[2019-10-23 01:17] LABS: ALANINE AMINOTRANSFERASE 43 U/L (12-78); ALBUMIN 3.9 g/dL (3.4-5.0); ALKALINE PHOSPHATASE 72 U/L (46-116); ASPARTATE AMINOTRANSFERASE 22 U/L (15-37); BILIRUBIN,TOTAL 0.5 mg/dL (0.1-1.0); TOTAL PROTEIN, SERUM 7.9 g/dL (6.4-8.2)
[2019-10-23] MEDS ORDERED: LORazepam 2 MG TABLET PO PRN (02:00)
[2019-10-23] MEDS ORDERED: HALOPERIDOL 5 MG TABLET PO PRN (02:00)
[2019-10-23] MEDS ORDERED: ZOLPIDEM TARTRATE 10 MG TABLET PO PRN (02:00)
[2019-10-23 02:29] LABS: LITHIUM 1.02 mmol/L (0.60-1.20)
[2019-10-23 02:30] LABS: FREE T4 (FREE THYROXINE) 1.05 ng/dL (0.76-1.46); THYROID STIMULATING HORMONE 2.54 uIU/mL (0.36-3.74)
[2019-10-23 04:14] VITALS: BP 128/79
[2019-10-23 09:08] VITALS: BP 150/59
[2019-10-23] MEDS ORDERED: DEXTROSE 50%-WATER 25 GM/50 ML SYRINGE IVP PRN (13:45)
[2019-10-23] MEDS ORDERED: OMEPRAZOLE 20 MG CAPSULE PO PRN (13:45)
[2019-10-23] MEDS ORDERED: PETROLATUM,WHITE 28 GM JELLY TP PRN (13:45)
[2019-10-23] MEDS ORDERED: IBUPROFEN 600 MG TABLET PO PRN (13:45)
[2019-10-23] MEDS ORDERED: ONDANSETRON HCL 4 MG TABLET PO PRN (13:45)
[2019-10-23] MEDS ORDERED: CloNIDine HCL 0.1 MG TABLET PO PRN (13:45)
[2019-10-23] MEDS ORDERED: BENZOCAINE/MENTHOL LOZENGE MM PRN (13:45)
[2019-10-23] MEDS ORDERED: MAG HYDROX/AL HYDROX/SIMETH ES 30 ML SUSPENSION UDCUP PO PRN (13:45)
[2019-10-23] MEDS ORDERED: BACITRACIN 28.4 GM OINTMENT TP PRN (13:45)
[2019-10-23] MEDS ORDERED: MAGNESIUM HYDROXIDE SUSPENSION 30 ML UDCUP PO PRN (13:45)
[2019-10-23] MEDS ORDERED: DOCUSATE SODIUM 100 MG CAPSULE PO PRN (13:45)
[2019-10-23] MEDS ORDERED: ACETAMINOPHEN 325 MG TABLET PO PRN (13:45)
[2019-10-23] MEDS ORDERED: ALBUTEROL SULFATE HFA 90 MCG/PUFF 8 GM INHALER IH PRN (13:45)
[2019-10-23] MEDS ORDERED: LOPERAMIDE HCL 2 MG CAPSULE PO PRN (13:45)
[2019-10-23 17:46] VITALS: BP 105/60
[2019-10-23] MEDS: ATORVASTATIN CALCIUM 10 MG TABLET PO SCH (20:48)
[2019-10-24 02:24] VITALS: BP 105/69
[2019-10-24 05:33] LABS: GLUCOMETER DEV NAME(LOC) 3E.I 2; GLUCOSE,POINT OF CARE 105 MG/DL (70-110)
[2019-10-24] MEDS: LEVOTHYROXINE SODIUM 25 MCG TABLET PO SCH (06:57)
[2019-10-24] MEDS: SitaGLIPtin PHOSPHATE 100 MG TABLET PO SCH (09:21)
[2019-10-24] MEDS: LISINOPRIL 10 MG TABLET PO SCH (09:21)
[2019-10-24 10:08] VITALS: BP 121/71
[2019-10-24 11:34] LABS: CHOL/HDL RATIO 2.4 (4.2-7.3)
[2019-10-24] MEDS: LITHIUM CARBONATE 300 MG CAPSULE PO SCH (16:44)
[2019-10-24 16:53] LABS: GLUCOMETER DEV NAME(LOC) 3EX.; GLUCOSE,POINT OF CARE 123 MG/DL (70-110)
[2019-10-24 17:14] VITALS: BP 74/74
[2019-10-24] MEDS ORDERED: LURASIDONE HCL 40 MG TABLET PO SCH (17:30)
[2019-10-24] MEDS: LURASIDONE HCL 80 MG TABLET PO SCH (17:55)
[2019-10-24] MEDS: ATORVASTATIN CALCIUM 10 MG TABLET PO SCH (20:32)
[2019-10-24 20:45] LABS: GLUCOMETER DEV NAME(LOC) 3EX.; GLUCOSE,POINT OF CARE 227 MG/DL (70-110)
[2019-10-24] MEDS: INSULIN LISPRO 100 UNITS/ML SQ PRN (21:26)
[2019-10-25 05:53] LABS: GLUCOMETER DEV NAME(LOC) 3E.I 2; GLUCOSE,POINT OF CARE 125 MG/DL (70-110)
[2019-10-25] MEDS: LEVOTHYROXINE SODIUM 25 MCG TABLET PO SCH (06:45)
[2019-10-25] MEDS: LISINOPRIL 10 MG TABLET PO SCH (08:33)
[2019-10-25] MEDS: SitaGLIPtin PHOSPHATE 100 MG TABLET PO SCH (08:33)
[2019-10-25] MEDS: LITHIUM CARBONATE 300 MG CAPSULE PO SCH ×2 (08:33→16:56)
[2019-10-25 09:24] VITALS: BP 109/53
[2019-10-25 10:34] LABS: GLUCOMETER DEV NAME(LOC) 3EX.; GLUCOSE,POINT OF CARE 179 MG/DL (70-110)
[2019-10-25] MEDS: INSULIN LISPRO 100 UNITS/ML SQ PRN ×2 (12:31→21:18)
[2019-10-25] MEDS: LURASIDONE HCL 80 MG TABLET PO SCH (16:56)
[2019-10-25 17:25] VITALS: BP 123/69
[2019-10-25 17:29] LABS: GLUCOMETER DEV NAME(LOC) 3EX.; GLUCOSE,POINT OF CARE 121 MG/DL (70-110)
[2019-10-25] MEDS: ATORVASTATIN CALCIUM 10 MG TABLET PO SCH (21:10)
[2019-10-25 21:33] LABS: GLUCOMETER DEV NAME(LOC) 3EX.; GLUCOSE,POINT OF CARE 152 MG/DL (70-110)
[2019-10-26 05:32] LABS: GLUCOMETER DEV NAME(LOC) 3E.I 2; GLUCOSE,POINT OF CARE 123 MG/DL (70-110)
[2019-10-26] MEDS: LEVOTHYROXINE SODIUM 25 MCG TABLET PO SCH (06:23)
[2019-10-26] MEDS: SitaGLIPtin PHOSPHATE 100 MG TABLET PO SCH (08:40)
[2019-10-26] MEDS: LITHIUM CARBONATE 300 MG CAPSULE PO SCH ×2 (08:40→17:28)
[2019-10-26] MEDS: LISINOPRIL 10 MG TABLET PO SCH (08:40)
[2019-10-26] MEDS: INSULIN LISPRO 100 UNITS/ML SQ PRN ×3 (12:19→21:00)
[2019-10-26 12:22] VITALS: BP 111/66
[2019-10-26 16:44] LABS: GLUCOMETER DEV NAME(LOC) 3EX.; GLUCOSE,POINT OF CARE 189 MG/DL (70-110)
[2019-10-26 16:58] VITALS: BP 117/56
[2019-10-26] MEDS: LURASIDONE HCL 80 MG TABLET PO SCH (17:28)
[2019-10-26] MEDS: ATORVASTATIN CALCIUM 10 MG TABLET PO SCH (20:32)
[2019-10-26 21:11] LABS: GLUCOMETER DEV NAME(LOC) 3EX.; GLUCOSE,POINT OF CARE 155 MG/DL (70-110)
[2019-10-27 05:56] LABS: GLUCOMETER DEV NAME(LOC) 3E.I 2; GLUCOSE,POINT OF CARE 113 MG/DL (70-110)
[2019-10-27] MEDS: LEVOTHYROXINE SODIUM 25 MCG TABLET PO SCH (06:50)
[2019-10-27] MEDS ORDERED: MetFORMIN HCL 500 MG TABLET PO SCH (07:30)
[2019-10-27] MEDS: LISINOPRIL 10 MG TABLET PO SCH (08:23)
[2019-10-27] MEDS: SitaGLIPtin PHOSPHATE 100 MG TABLET PO SCH (08:23)
[2019-10-27] MEDS: LITHIUM CARBONATE 300 MG CAPSULE PO SCH (08:23)
[2019-10-27 09:40] VITALS: BP 147/73
[2019-10-27 11:26] LABS: GLUCOMETER DEV NAME(LOC) 3EX.; GLUCOSE,POINT OF CARE 148 MG/DL (70-110)
[2019-10-27] MEDS ORDERED: ATOR10TA84 PO (13:07)
[2019-10-27] MEDS ORDERED: LEVO25TA9 PO (13:08)
[2019-10-27] MEDS ORDERED: LISI-661 PO (13:09)
[2019-10-27] MEDS ORDERED: METF-960 PO (13:09)
[2019-10-27] MEDS ORDERED: SITA100 PO (13:10)
[2019-10-27] MEDS ORDERED: LURA80TA2 PO (13:16)
[2019-10-27] MEDS: INSULIN LISPRO 100 UNITS/ML SQ PRN (14:20)
== END 2019-10-27 15:35 | disposition home or self-care (01) | DRG 885 ==
LOC: EMS 00:13 → 3EX 02:30
PROVIDERS: ADMIT Psychiatry & Neurology Psychiatry; ATTEND Psychiatry & Neurology Psychiatry
DX: F25.9 Schizoaffective disorder, unspecified (principal); E03.9 Hypothyroidism, unspecified; E11.9 Type 2 diabetes mellitus without complications; E66.9 Obesity, unspecified; E78.00 Pure hypercholesterolemia, unspecified; F31.9 Bipolar disorder, unspecified; F41.9 Anxiety disorder, unspecified; G47.33 Obstructive sleep apnea (adult) (pediatric); I10 Essential (primary) hypertension; J44.9 Chronic obstructive pulmonary disease, unspecified; K59.00 Constipation, unspecified; K74.60 Unspecified cirrhosis of liver; Z59.0 Homelessness; Z68.36 Body mass index [BMI] 36.0-36.9, adult
CPT/HCPCS: 84439; 84443; 94660; G0378; G0480

== ENCOUNTER 2019-11-12 09:59 | Inpatient (IN) | payer MEDICARE, MEDICAID ==
[~2019-11-12] VITALS: Ht 175.3 cm; Wt 113.0 kg
[~2019-11-12 09:59] MED LIST changes: -HALO10TA3 PO; +LURA80TA2 PO
[2019-11-12 11:11] LABS: BASOPHILS % (AUTO) 0.8 % (0.0-2.0); EOSINOPHILS % (AUTO) 3.7 % (1.0-6.0); HEMOGLOBIN 11.8 g/dL (13.5-17.5); LYMPHOCYTES # (AUTO) 1.1 K/uL (1.0-4.8); LYMPHOCYTES % (AUTO) 17.2 % (22.0-44.0); MEAN CORPUSCULAR HEMOGLOBIN 31.4 pg (26.0-34.0); MEAN CORPUSCULAR HGB CONC 32.7 G/dL (31.0-37.0); MEAN CORPUSCULAR VOLUME 96 fL (80-100); MONOCYTES # (AUTO) 0.7 K/uL (0.1-1.0); MONOCYTES % (AUTO) 10.9 % (2.0-9.0); NEUTROPHILS # (AUTO) 4.3 K/uL (1.8-7.7); NEUTROPHILS % (AUTO) 67.4 % (40.0-70.0); PLATELET COUNT (AUTO) 129 K/uL (150-450); RED BLOOD CELL COUNT(AUTO) 3.75 MIL/uL (4.50-5.90); RED CELL DISTRIBUTION WIDTH 13.3 % (11.5-14.5)
[2019-11-12 11:44] LABS: ANION GAP 9 mmol/L (8-16); CALCIUM, TOTAL 9.4 mg/dL (8.8-10.5); CARBON DIOXIDE 26 mmol/L (22-29); CHLORIDE 108 mmol/L (98-107); CREATININE 0.86 mg/dL (0.60-1.30); GLOMERULAR FILTR. RATE CALC > 60 mL/min (>60); GLUCOSE,RANDOM 127 mg/dL (70-110); POTASSIUM 4.1 mmol/L (3.5-5.1); SODIUM SERUM 143 mmol/L (136-145); UREA NITROGEN, BLOOD 8 mg/dL (7-18)
[2019-11-12 11:51] LABS: ALANINE AMINOTRANSFERASE 53 U/L (12-78); ALBUMIN 4.1 g/dL (3.4-5.0); ALKALINE PHOSPHATASE 82 U/L (46-116); ASPARTATE AMINOTRANSFERASE 29 U/L (15-37); BILIRUBIN,TOTAL 0.7 mg/dL (0.1-1.0); TOTAL PROTEIN, SERUM 8.5 g/dL (6.4-8.2)
[2019-11-12 12:35] LABS: LITHIUM 0.34 mmol/L (0.60-1.20)
[2019-11-12] MEDS ORDERED: LORazepam 2 MG TABLET PO PRN (12:45)
[2019-11-12] MEDS ORDERED: ZOLPIDEM TARTRATE 10 MG TABLET PO PRN (12:45)
[2019-11-12] MEDS ORDERED: HALOPERIDOL 5 MG TABLET PO PRN (12:45)
[2019-11-12 12:48] LABS: THYROID STIMULATING HORMONE 0.77 uIU/mL (0.36-3.74)
[2019-11-12 16:30] VITALS: BP 136/79
[2019-11-12 16:52] LABS: AMPHET/METH SCREEN,URINE NEGATIVE (NEGATIVE); BARBITURATE SCREEN, URINE NEGATIVE (NEGATIVE); BENZODIAZEPINES SCREEN,URINE NEGATIVE (NEGATIVE); CANNABINOID SCREEN,URINE NEGATIVE (NEGATIVE); COCAINE SCREEN,URINE NEGATIVE (NEGATIVE); METHADONE SCREEN, URINE NEGATIVE (NEGATIVE); OPIATE SCREEN,URINE NEGATIVE (NEGATIVE)
[2019-11-12 16:56] LABS: PHENCYCLIDINE SCREEN,URINE NEGATIVE (NEGATIVE)
[2019-11-12] MEDS ORDERED: MAG HYDROX/AL HYDROX/SIMETH ES 30 ML SUSPENSION UDCUP PO PRN (17:15)
[2019-11-12] MEDS ORDERED: ALBUTEROL SULFATE HFA 90 MCG/PUFF 8 GM INHALER IH PRN (17:15)
[2019-11-12] MEDS ORDERED: DOCUSATE SODIUM 100 MG CAPSULE PO PRN (17:15)
[2019-11-12] MEDS ORDERED: OMEPRAZOLE 20 MG CAPSULE PO PRN (17:15)
[2019-11-12] MEDS ORDERED: DEXTROSE 50%-WATER 25 GM/50 ML SYRINGE IVP PRN (17:15)
[2019-11-12] MEDS ORDERED: LOPERAMIDE HCL 2 MG CAPSULE PO PRN (17:15)
[2019-11-12] MEDS ORDERED: IBUPROFEN 600 MG TABLET PO PRN (17:15)
[2019-11-12] MEDS ORDERED: MAGNESIUM HYDROXIDE SUSPENSION 30 ML UDCUP PO PRN (17:15)
[2019-11-12] MEDS ORDERED: ACETAMINOPHEN 325 MG TABLET PO PRN (17:15)
[2019-11-12] MEDS ORDERED: ONDANSETRON HCL 4 MG TABLET PO PRN (17:15)
[2019-11-12] MEDS ORDERED: BACITRACIN 28.4 GM OINTMENT TP PRN (17:15)
[2019-11-12] MEDS ORDERED: CloNIDine HCL 0.1 MG TABLET PO PRN (17:15)
[2019-11-12] MEDS ORDERED: PETROLATUM,WHITE 28 GM JELLY TP PRN (17:15)
[2019-11-12] MEDS ORDERED: BENZOCAINE/MENTHOL LOZENGE MM PRN (17:15)
[2019-11-12 17:38] LABS: GLUCOMETER DEV NAME(LOC) 3EX.; GLUCOSE,POINT OF CARE 156 MG/DL (70-110)
[2019-11-12] MEDS: MetFORMIN HCL 500 MG TABLET PO SCH (18:03)
[2019-11-12] MEDS: INSULIN LISPRO 100 UNITS/ML SQ PRN (18:04)
[2019-11-12] MEDS: ATORVASTATIN CALCIUM 10 MG TABLET PO SCH (20:19)
[2019-11-13 03:03] LABS: APPEARANCE,URINE CLEAR (CLEAR); BILIRUBIN,URINE NEGATIVE (NEGATIVE); GLUCOSE, URINE (UA) NEGATIVE (NEGATIVE); KETONES,URINE NEGATIVE (NEGATIVE); LEUKOCYTE ESTERASE ,URINE NEGATIVE (NEGATIVE); NITRATE,URINE NEGATIVE (NEGATIVE); OCCULT BLOOD,URINE NEGATIVE (NEGATIVE); PROTEIN,URINE NEGATIVE (NEGATIVE)
[2019-11-13 03:15] VITALS: BP 137/85
[2019-11-13 05:29] LABS: GLUCOMETER DEV NAME(LOC) 3E.I 2; GLUCOSE,POINT OF CARE 211 MG/DL (70-110)
[2019-11-13] MEDS: MetFORMIN HCL 500 MG TABLET PO SCH ×2 (06:52→17:18)
[2019-11-13] MEDS: LEVOTHYROXINE SODIUM 25 MCG TABLET PO SCH (06:52)
[2019-11-13] MEDS: INSULIN LISPRO 100 UNITS/ML SQ PRN ×2 (07:00→18:08)
[2019-11-13] MEDS: LISINOPRIL 10 MG TABLET PO SCH (08:48)
[2019-11-13] MEDS: SitaGLIPtin PHOSPHATE 100 MG TABLET PO SCH (08:48)
[2019-11-13 09:35] VITALS: BP 118/72
[2019-11-13 16:25] LABS: GLUCOMETER DEV NAME(LOC) 3EX.; GLUCOSE,POINT OF CARE 185 MG/DL (70-110)
[2019-11-13 16:35] VITALS: BP 127/56
[2019-11-13] MEDS: LURASIDONE HCL 60 MG TABLET PO SCH (17:18)
[2019-11-13] MEDS: LITHIUM CARBONATE 600 MG CAPSULE PO SCH (17:18)
[2019-11-13] MEDS: ATORVASTATIN CALCIUM 10 MG TABLET PO SCH (20:42)
[2019-11-14 03:45] VITALS: BP 115/65
[2019-11-14 05:43] LABS: GLUCOMETER DEV NAME(LOC) 3E.I 2; GLUCOSE,POINT OF CARE 172 MG/DL (70-110)
[2019-11-14] MEDS: LEVOTHYROXINE SODIUM 25 MCG TABLET PO SCH (06:49)
[2019-11-14] MEDS: MetFORMIN HCL 500 MG TABLET PO SCH ×2 (06:49→16:32)
[2019-11-14] MEDS: INSULIN LISPRO 100 UNITS/ML SQ PRN (06:50)
[2019-11-14] MEDS: LITHIUM CARBONATE 600 MG CAPSULE PO SCH ×2 (08:17→16:26)
[2019-11-14] MEDS: SitaGLIPtin PHOSPHATE 100 MG TABLET PO SCH (08:18)
[2019-11-14] MEDS: LISINOPRIL 10 MG TABLET PO SCH (08:18)
[2019-11-14 10:00] VITALS: BP 114/64
[2019-11-14] MEDS: LURASIDONE HCL 60 MG TABLET PO SCH (16:32)
[2019-11-14 17:25] LABS: GLUCOMETER DEV NAME(LOC) 3EX.; GLUCOSE,POINT OF CARE 137 MG/DL (70-110)
[2019-11-14 17:29] VITALS: BP 106/60
[2019-11-14] MEDS: ATORVASTATIN CALCIUM 10 MG TABLET PO SCH (20:21)
[2019-11-15 04:01] VITALS: BP 112/56
[2019-11-15] MEDS: MetFORMIN HCL 500 MG TABLET PO SCH ×2 (07:00→17:41)
[2019-11-15] MEDS: LEVOTHYROXINE SODIUM 25 MCG TABLET PO SCH (07:00)
[2019-11-15] MEDS: LITHIUM CARBONATE 600 MG CAPSULE PO SCH ×2 (08:09→17:10)
[2019-11-15] MEDS: SitaGLIPtin PHOSPHATE 100 MG TABLET PO SCH (08:10)
[2019-11-15] MEDS: LISINOPRIL 10 MG TABLET PO SCH (08:10)
[2019-11-15 09:00] VITALS: BP 157/75
[2019-11-15 13:05] LABS: GLUCOMETER DEV NAME(LOC) 3E.I 2; GLUCOSE,POINT OF CARE 135 MG/DL (70-110)
[2019-11-15 16:00] VITALS: BP 113/59
[2019-11-15 17:25] LABS: GLUCOMETER DEV NAME(LOC) 3EX.; GLUCOSE,POINT OF CARE 189 MG/DL (70-110)
[2019-11-15] MEDS: LURASIDONE HCL 60 MG TABLET PO SCH (18:57)
[2019-11-15] MEDS: ATORVASTATIN CALCIUM 10 MG TABLET PO SCH (20:39)
[2019-11-15] MEDS: INSULIN LISPRO 100 UNITS/ML SQ PRN (21:41)
[2019-11-16 00:53] VITALS: BP 99/60
[2019-11-16 05:56] LABS: GLUCOMETER DEV NAME(LOC) 3E.I 2; GLUCOSE,POINT OF CARE 137 MG/DL (70-110)
[2019-11-16] MEDS: MetFORMIN HCL 500 MG TABLET PO SCH (06:27)
[2019-11-16] MEDS: LEVOTHYROXINE SODIUM 25 MCG TABLET PO SCH (06:27)
[2019-11-16] MEDS: LITHIUM CARBONATE 600 MG CAPSULE PO SCH (08:43)
[2019-11-16] MEDS: SitaGLIPtin PHOSPHATE 100 MG TABLET PO SCH (08:43)
[2019-11-16] MEDS: LISINOPRIL 10 MG TABLET PO SCH (08:43)
[2019-11-16 09:17] VITALS: BP 129/63
[2019-11-16] MEDS ORDERED: LURA60TA PO (09:44)
[2019-11-16] MEDS ORDERED: LITH600 PO (09:44)
== END 2019-11-16 12:20 | disposition home or self-care (01) | DRG 885 ==
LOC: EMS 10:04 → 3EX 13:24
PROVIDERS: ADMIT Psychiatry & Neurology Psychiatry; ATTEND Psychiatry & Neurology Psychiatry
DX: F25.0 Schizoaffective disorder, bipolar type (principal); R45.851 Suicidal ideations; E11.9 Type 2 diabetes mellitus without complications; J44.9 Chronic obstructive pulmonary disease, unspecified; I10 Essential (primary) hypertension; G47.33 Obstructive sleep apnea (adult) (pediatric); F41.9 Anxiety disorder, unspecified; E78.00 Pure hypercholesterolemia, unspecified; E03.9 Hypothyroidism, unspecified; F32.9 Major depressive disorder, single episode, unspecified; F10.20 Alcohol dependence, uncomplicated; K74.60 Unspecified cirrhosis of liver; K59.00 Constipation, unspecified; E66.9 Obesity, unspecified; Z68.36 Body mass index [BMI] 36.0-36.9, adult; Z83.3 Family history of diabetes mellitus; Z82.49 Family history of ischemic heart disease and other diseases of the circulatory system; Z87.891 Personal history of nicotine dependence; Z59.0 Homelessness; Z91.5 Personal history of self-harm
CPT/HCPCS: 84443; 87081; 94660; G0378; G0480

== ENCOUNTER 2019-12-22 19:53 | Inpatient (IN) | payer MEDICARE, MEDICAID ==
[~2019-12-22] VITALS: Ht 172.7 cm; Wt 114.0 kg
[~2019-12-22 19:53] MED LIST changes: +ACET-3207 PO; +ARIP400S3 IM; +ATOR10TA69 PO; +FLUD25I IM; +GABA-1181 PO; +HEPA500018 SQ; +INSLAN SQ; +INSU100V SQ; +LEVO-72 PO; +LEVO25TA PO; -LITH300C3 PO; -LURA80TA2 PO; +OLAN5TAB27 PO
[2019-12-22] MEDS ORDERED: DEXTROSE 50%-WATER 25 GM/50 ML SYRINGE IVP PRN (21:00)
[2019-12-22] MEDS: INSULIN GLARGINE,HUM.REC.ANLOG 100 UNITS/ML SQ SCH (21:00)
[2019-12-22] MEDS ORDERED: ACETAMINOPHEN 325 MG TABLET PO PRN (21:15)
[2019-12-22] MEDS: ATORVASTATIN CALCIUM 10 MG TABLET PO SCH (22:00)
[2019-12-23] MEDS: LEVOTHYROXINE SODIUM 25 MCG TABLET PO SCH (06:53)
[2019-12-23] MEDS ORDERED: CloNIDine HCL 0.1 MG TABLET PO PRN (07:15)
[2019-12-23] MEDS ORDERED: LOPERAMIDE HCL 2 MG CAPSULE PO PRN (07:15)
[2019-12-23] MEDS ORDERED: ONDANSETRON HCL 4 MG TABLET PO PRN (07:15)
[2019-12-23] MEDS ORDERED: ACETAMINOPHEN 325 MG TABLET PO PRN (07:15)
[2019-12-23] MEDS ORDERED: MAG HYDROX/AL HYDROX/SIMETH ES 30 ML SUSPENSION UDCUP PO PRN (07:15)
[2019-12-23] MEDS ORDERED: BENZOCAINE/MENTHOL LOZENGE MM PRN (07:15)
[2019-12-23] MEDS ORDERED: DOCUSATE SODIUM 100 MG CAPSULE PO PRN (07:15)
[2019-12-23] MEDS ORDERED: MAGNESIUM HYDROXIDE SUSPENSION 30 ML UDCUP PO PRN (07:15)
[2019-12-23] MEDS ORDERED: PETROLATUM,WHITE 28 GM JELLY TP PRN (07:15)
[2019-12-23] MEDS ORDERED: BACITRACIN 28.4 GM OINTMENT TP PRN (07:15)
[2019-12-23] MEDS ORDERED: OMEPRAZOLE 20 MG CAPSULE PO PRN (07:15)
[2019-12-23] MEDS: OLANZapine 5 MG TABLET PO SCH ×2 (08:22→16:31)
[2019-12-23] MEDS: LISINOPRIL 10 MG TABLET PO SCH (08:22)
[2019-12-23] MEDS: GABAPENTIN 300 MG CAPSULE PO SCH ×2 (08:22→16:32)
[2019-12-23] MEDS: CHOLECALCIFEROL (VIT D3) 1,000 UNITS [25 MCG] TABLET PO SCH (08:23)
[2019-12-23] MEDS: LEVOFLOXACIN 500 MG TABLET PO SCH (08:23)
[2019-12-23] MEDS: MetFORMIN HCL 500 MG TABLET PO SCH ×2 (08:23→16:42)
[2019-12-23 11:14] VITALS: BP 142/84
[2019-12-23 11:34] LABS: GLUCOMETER DEV NAME(LOC) 3E.C; GLUCOSE,POINT OF CARE 130 MG/DL (70-110)
[2019-12-23 11:44] LABS: GLUCOMETER DEV NAME(LOC) 3E.C; GLUCOSE,POINT OF CARE 101 MG/DL (70-110)
[2019-12-23 16:34] VITALS: BP 128/78
[2019-12-23 16:47] LABS: GLUCOMETER DEV NAME(LOC) 3E.C; GLUCOSE,POINT OF CARE 127 MG/DL (70-110)
[2019-12-23] MEDS: QUEtiapine FUMARATE 25 MG TABLET PO PRN (20:27)
[2019-12-23] MEDS: ATORVASTATIN CALCIUM 10 MG TABLET PO SCH (20:27)
[2019-12-23] MEDS ORDERED: INSULIN GLARGINE,HUM.REC.ANLOG 100 UNITS/ML SQ SCH (21:00)
[2019-12-23] MEDS: INSULIN GLARGINE,HUM.REC.ANLOG 100 UNITS/ML SQ SCH (21:20)
[2019-12-23 21:27] LABS: GLUCOMETER DEV NAME(LOC) 3E.C; GLUCOSE,POINT OF CARE 130 MG/DL (70-110)
[2019-12-24] MEDS: QUEtiapine FUMARATE 25 MG TABLET PO PRN ×2 (06:39→16:43)
[2019-12-24] MEDS: LEVOTHYROXINE SODIUM 25 MCG TABLET PO SCH (06:41)
[2019-12-24 06:48] LABS: GLUCOMETER DEV NAME(LOC) 3E.C; GLUCOSE,POINT OF CARE 122 MG/DL (70-110)
[2019-12-24] MEDS: MetFORMIN HCL 500 MG TABLET PO SCH ×2 (06:50→16:39)
[2019-12-24] MEDS: INSULIN LISPRO 100 UNITS/ML SQ PRN (06:51)
[2019-12-24] MEDS ORDERED: DiphenhydrAMINE HCL 50 MG/ML VIAL IM ONE (08:15)
[2019-12-24] MEDS ORDERED: HALOPERIDOL LACTATE 5 MG/ML VIAL IM ONE (08:15)
[2019-12-24] MEDS ORDERED: LORazepam 2 MG/ML VIAL IM ONE (08:15)
[2019-12-24] MEDS ORDERED: LORazepam 2 MG/ML VIAL ONE (08:15)
[2019-12-24] MEDS ORDERED: HALOPERIDOL LACTATE 5 MG/ML VIAL ONE (08:16)
[2019-12-24] MEDS ORDERED: DiphenhydrAMINE HCL 50 MG/ML VIAL ONE (08:16)
[2019-12-24] MEDS: OLANZapine 5 MG TABLET PO SCH ×2 (08:51→16:39)
[2019-12-24] MEDS: GABAPENTIN 300 MG CAPSULE PO SCH ×2 (08:51→16:39)
[2019-12-24] MEDS: LEVOFLOXACIN 500 MG TABLET PO SCH (08:51)
[2019-12-24] MEDS: LISINOPRIL 10 MG TABLET PO SCH (08:51)
[2019-12-24] MEDS: CHOLECALCIFEROL (VIT D3) 1,000 UNITS [25 MCG] TABLET PO SCH (08:51)
[2019-12-24 11:51] LABS: GLUCOMETER DEV NAME(LOC) 3E.C; GLUCOSE,POINT OF CARE 106 MG/DL (70-110)
[2019-12-24 17:34] LABS: GLUCOMETER DEV NAME(LOC) 3E.C; GLUCOSE,POINT OF CARE 82 MG/DL (70-110)
[2019-12-24] MEDS: ATORVASTATIN CALCIUM 10 MG TABLET PO SCH (20:42)
[2019-12-24 21:43] LABS: GLUCOMETER DEV NAME(LOC) 3E.C; GLUCOSE,POINT OF CARE 109 MG/DL (70-110)
[2019-12-24] MEDS: INSULIN GLARGINE,HUM.REC.ANLOG 100 UNITS/ML SQ SCH (21:58)
[2019-12-25] MEDS: QUEtiapine FUMARATE 25 MG TABLET PO PRN ×2 (02:38→21:00)
[2019-12-25] MEDS ORDERED: HALOPERIDOL LACTATE 5 MG/ML VIAL ONE (02:54)
[2019-12-25] MEDS ORDERED: DiphenhydrAMINE HCL 50 MG/ML VIAL ONE (02:54)
[2019-12-25] MEDS ORDERED: LORazepam 2 MG/ML VIAL ONE (02:54)
[2019-12-25] MEDS ORDERED: DiphenhydrAMINE HCL 50 MG/ML VIAL IM ONE ×2 (03:15→09:30)
[2019-12-25] MEDS ORDERED: HALOPERIDOL LACTATE 5 MG/ML VIAL IM ONE (03:15)
[2019-12-25] MEDS ORDERED: LORazepam 2 MG/ML VIAL IM ONE ×2 (03:15→09:30)
[2019-12-25 06:18] LABS: GLUCOMETER DEV NAME(LOC) 3E.C; GLUCOSE,POINT OF CARE 86 MG/DL (70-110)
[2019-12-25] MEDS: LEVOTHYROXINE SODIUM 25 MCG TABLET PO SCH (06:48)
[2019-12-25] MEDS: MetFORMIN HCL 500 MG TABLET PO SCH ×2 (06:49→20:39)
[2019-12-25 08:00] VITALS: BP 117/87
[2019-12-25] MEDS: LISINOPRIL 10 MG TABLET PO SCH (09:00)
[2019-12-25] MEDS: LEVOFLOXACIN 500 MG TABLET PO SCH (09:00)
[2019-12-25] MEDS: OLANZapine 5 MG TABLET PO SCH ×2 (09:00→20:39)
[2019-12-25] MEDS: GABAPENTIN 300 MG CAPSULE PO SCH ×2 (09:00→20:39)
[2019-12-25] MEDS: CHOLECALCIFEROL (VIT D3) 1,000 UNITS [25 MCG] TABLET PO SCH (09:00)
[2019-12-25] MEDS ORDERED: ChlorproMAZINE HCL 25 MG/ML 2 ML AMP ONE (09:25)
[2019-12-25] MEDS ORDERED: ChlorproMAZINE HCL 25 MG/ML 2 ML AMP IM ONE (09:30)
[2019-12-25 11:36] LABS: GLUCOMETER DEV NAME(LOC) 3E.C; GLUCOSE,POINT OF CARE 88 MG/DL (70-110)
[2019-12-25] MEDS: INSULIN LISPRO 100 UNITS/ML SQ PRN (12:37)
[2019-12-25 17:45] LABS: GLUCOMETER DEV NAME(LOC) 3E.C; GLUCOSE,POINT OF CARE 100 MG/DL (70-110)
[2019-12-25] MEDS: ATORVASTATIN CALCIUM 10 MG TABLET PO SCH (20:39)
[2019-12-25] MEDS: INSULIN GLARGINE,HUM.REC.ANLOG 100 UNITS/ML SQ SCH (21:02)
[2019-12-25 21:18] LABS: GLUCOMETER DEV NAME(LOC) 3E.C; GLUCOSE,POINT OF CARE 105 MG/DL (70-110)
[2019-12-26] MEDS ORDERED: DiphenhydrAMINE HCL 50 MG/ML VIAL IM ONE (01:45)
[2019-12-26] MEDS ORDERED: ChlorproMAZINE HCL 25 MG/ML 2 ML AMP IM ONE (01:45)
[2019-12-26] MEDS ORDERED: LORazepam 2 MG/ML VIAL IM ONE (01:45)
[2019-12-26] MEDS: LEVOTHYROXINE SODIUM 25 MCG TABLET PO SCH (06:34)
[2019-12-26] MEDS: MetFORMIN HCL 500 MG TABLET PO SCH ×3 (06:35→17:49)
[2019-12-26 06:55] LABS: GLUCOMETER DEV NAME(LOC) 3E.C; GLUCOSE,POINT OF CARE 116 MG/DL (70-110)
[2019-12-26] MEDS: GABAPENTIN 300 MG CAPSULE PO SCH ×2 (08:27→16:33)
[2019-12-26] MEDS: LISINOPRIL 10 MG TABLET PO SCH (08:27)
[2019-12-26] MEDS: CHOLECALCIFEROL (VIT D3) 1,000 UNITS [25 MCG] TABLET PO SCH (08:28)
[2019-12-26] MEDS: OLANZapine 5 MG TABLET PO SCH ×2 (08:30→16:33)
[2019-12-26] MEDS: QUEtiapine FUMARATE 25 MG TABLET PO PRN ×3 (08:32→22:33)
[2019-12-26] MEDS: LEVOFLOXACIN 500 MG TABLET PO SCH (10:57)
[2019-12-26] MEDS: INSULIN LISPRO 100 UNITS/ML SQ PRN (12:02)
[2019-12-26 12:08] LABS: GLUCOMETER DEV NAME(LOC) 3E.C; GLUCOSE,POINT OF CARE 107 MG/DL (70-110)
[2019-12-26] MEDS: ATORVASTATIN CALCIUM 10 MG TABLET PO SCH (20:00)
[2019-12-26] MEDS: INSULIN GLARGINE,HUM.REC.ANLOG 100 UNITS/ML SQ SCH (21:51)
[2019-12-26 22:01] LABS: GLUCOMETER DEV NAME(LOC) 3E.C; GLUCOSE,POINT OF CARE 134 MG/DL (70-110)
[2019-12-26 22:01] LABS: GLUCOMETER DEV NAME(LOC) 3E.C; GLUCOSE,POINT OF CARE 110 MG/DL (70-110)
[2019-12-27] MEDS: LEVOTHYROXINE SODIUM 25 MCG TABLET PO SCH (06:47)
[2019-12-27] MEDS: MetFORMIN HCL 500 MG TABLET PO SCH ×2 (06:47→17:30)
[2019-12-27] MEDS: LISINOPRIL 10 MG TABLET PO SCH (08:50)
[2019-12-27] MEDS: CHOLECALCIFEROL (VIT D3) 1,000 UNITS [25 MCG] TABLET PO SCH (08:51)
[2019-12-27] MEDS: GABAPENTIN 300 MG CAPSULE PO SCH ×2 (08:51→17:30)
[2019-12-27] MEDS: OLANZapine 5 MG TABLET PO SCH ×2 (08:51→17:30)
[2019-12-27] MEDS: LEVOFLOXACIN 500 MG TABLET PO SCH (08:52)
[2019-12-27] MEDS: QUEtiapine FUMARATE 25 MG TABLET PO PRN ×2 (09:05→16:14)
[2019-12-27 11:31] LABS: GLUCOMETER DEV NAME(LOC) 3E.C; GLUCOSE,POINT OF CARE 72 MG/DL (70-110)
[2019-12-27 16:46] LABS: GLUCOMETER DEV NAME(LOC) 3E.C; GLUCOSE,POINT OF CARE 101 MG/DL (70-110)
[2019-12-27] MEDS: ATORVASTATIN CALCIUM 10 MG TABLET PO SCH (20:36)
[2019-12-27] MEDS: INSULIN GLARGINE,HUM.REC.ANLOG 100 UNITS/ML SQ SCH (21:00)
[2019-12-27 22:07] LABS: GLUCOMETER DEV NAME(LOC) 3E.C; GLUCOSE,POINT OF CARE 110 MG/DL (70-110)
[2019-12-28] MEDS: LEVOTHYROXINE SODIUM 25 MCG TABLET PO SCH (06:52)
[2019-12-28] MEDS: MetFORMIN HCL 500 MG TABLET PO SCH ×2 (06:53→17:01)
[2019-12-28] MEDS: INSULIN LISPRO 100 UNITS/ML SQ PRN ×2 (06:53→12:30)
[2019-12-28 07:01] LABS: GLUCOMETER DEV NAME(LOC) 3E.C; GLUCOSE,POINT OF CARE 106 MG/DL (70-110)
[2019-12-28] MEDS: QUEtiapine FUMARATE 25 MG TABLET PO PRN ×2 (10:52→20:19)
[2019-12-28] MEDS: LISINOPRIL 10 MG TABLET PO SCH (10:52)
[2019-12-28] MEDS: CHOLECALCIFEROL (VIT D3) 1,000 UNITS [25 MCG] TABLET PO SCH (10:53)
[2019-12-28] MEDS: GABAPENTIN 300 MG CAPSULE PO SCH ×2 (10:54→17:00)
[2019-12-28] MEDS: OLANZapine 5 MG TABLET PO SCH ×2 (10:54→17:01)
[2019-12-28 11:54] LABS: GLUCOMETER DEV NAME(LOC) 3E.C; GLUCOSE,POINT OF CARE 101 MG/DL (70-110)
[2019-12-28] MEDS: LITHIUM CARBONATE 600 MG CAPSULE PO SCH (17:01)
[2019-12-28 17:04] LABS: GLUCOMETER DEV NAME(LOC) 3E.C; GLUCOSE,POINT OF CARE 112 MG/DL (70-110)
[2019-12-28 17:13] VITALS: BP 98/63
[2019-12-28] MEDS: ATORVASTATIN CALCIUM 10 MG TABLET PO SCH (20:19)
[2019-12-28] MEDS: LURASIDONE HCL 40 MG TABLET PO SCH (20:19)
[2019-12-28] MEDS: INSULIN GLARGINE,HUM.REC.ANLOG 100 UNITS/ML SQ SCH (21:01)
[2019-12-29 06:32] LABS: GLUCOMETER DEV NAME(LOC) 3E.C; GLUCOSE,POINT OF CARE 113 MG/DL (70-110)
[2019-12-29] MEDS: LEVOTHYROXINE SODIUM 25 MCG TABLET PO SCH (06:46)
[2019-12-29] MEDS: INSULIN LISPRO 100 UNITS/ML SQ PRN (06:47)
[2019-12-29] MEDS: MetFORMIN HCL 500 MG TABLET PO SCH ×2 (06:47→17:15)
[2019-12-29] MEDS: LISINOPRIL 10 MG TABLET PO SCH (08:29)
[2019-12-29] MEDS: LITHIUM CARBONATE 600 MG CAPSULE PO SCH ×2 (08:29→16:35)
[2019-12-29] MEDS: CHOLECALCIFEROL (VIT D3) 1,000 UNITS [25 MCG] TABLET PO SCH (08:29)
[2019-12-29] MEDS: QUEtiapine FUMARATE 25 MG TABLET PO PRN ×3 (08:29→20:45)
[2019-12-29] MEDS: GABAPENTIN 300 MG CAPSULE PO SCH ×2 (08:29→16:35)
[2019-12-29] MEDS: OLANZapine 5 MG TABLET PO SCH ×2 (08:30→16:35)
[2019-12-29 16:45] LABS: GLUCOMETER DEV NAME(LOC) 3E.C; GLUCOSE,POINT OF CARE 84 MG/DL (70-110)
[2019-12-29 17:03] VITALS: BP 93/60
[2019-12-29 20:28] LABS: GLUCOMETER DEV NAME(LOC) 3E.C; GLUCOSE,POINT OF CARE 86 MG/DL (70-110)
[2019-12-29] MEDS: LURASIDONE HCL 40 MG TABLET PO SCH (20:44)
[2019-12-29] MEDS: ATORVASTATIN CALCIUM 10 MG TABLET PO SCH (20:44)
[2019-12-29] MEDS: INSULIN GLARGINE,HUM.REC.ANLOG 100 UNITS/ML SQ SCH (21:00)
[2019-12-30 06:28] LABS: GLUCOMETER DEV NAME(LOC) 3E.C; GLUCOSE,POINT OF CARE 87 MG/DL (70-110)
[2019-12-30] MEDS: MetFORMIN HCL 500 MG TABLET PO SCH ×2 (06:48→16:34)
[2019-12-30] MEDS: LEVOTHYROXINE SODIUM 25 MCG TABLET PO SCH (06:48)
[2019-12-30] MEDS: INSULIN LISPRO 100 UNITS/ML SQ PRN ×3 (06:48→21:19)
[2019-12-30] MEDS: OLANZapine 5 MG TABLET PO SCH ×2 (07:47→16:34)
[2019-12-30] MEDS: LITHIUM CARBONATE 600 MG CAPSULE PO SCH ×2 (07:47→16:34)
[2019-12-30] MEDS: LISINOPRIL 10 MG TABLET PO SCH (07:47)
[2019-12-30] MEDS: CHOLECALCIFEROL (VIT D3) 1,000 UNITS [25 MCG] TABLET PO SCH (07:47)
[2019-12-30] MEDS: GABAPENTIN 300 MG CAPSULE PO SCH ×2 (07:48→16:34)
[2019-12-30] MEDS: QUEtiapine FUMARATE 25 MG TABLET PO PRN ×3 (07:53→22:09)
[2019-12-30 08:29] VITALS: BP 115/54
[2019-12-30 11:48] LABS: GLUCOMETER DEV NAME(LOC) 3E.C; GLUCOSE,POINT OF CARE 313 MG/DL (70-110)
[2019-12-30 16:47] VITALS: BP 110/59
[2019-12-30] MEDS: ATORVASTATIN CALCIUM 10 MG TABLET PO SCH (20:29)
[2019-12-30] MEDS: LURASIDONE HCL 40 MG TABLET PO SCH (20:29)
[2019-12-30 20:41] LABS: GLUCOMETER DEV NAME(LOC) 3E.C; GLUCOSE,POINT OF CARE 147 MG/DL (70-110)
[2019-12-30 20:41] LABS: GLUCOMETER DEV NAME(LOC) 3E.C; GLUCOSE,POINT OF CARE 99 MG/DL (70-110)
[2019-12-30] MEDS: INSULIN GLARGINE,HUM.REC.ANLOG 100 UNITS/ML SQ SCH (21:19)
[2019-12-31 06:33] LABS: GLUCOMETER DEV NAME(LOC) 3E.C; GLUCOSE,POINT OF CARE 106 MG/DL (70-110)
[2019-12-31] MEDS: MetFORMIN HCL 500 MG TABLET PO SCH ×2 (06:53→16:39)
[2019-12-31] MEDS: LEVOTHYROXINE SODIUM 25 MCG TABLET PO SCH (06:54)
[2019-12-31] MEDS: GABAPENTIN 300 MG CAPSULE PO SCH ×2 (08:01→16:38)
[2019-12-31] MEDS: LISINOPRIL 10 MG TABLET PO SCH (08:01)
[2019-12-31] MEDS: QUEtiapine FUMARATE 25 MG TABLET PO PRN ×2 (08:01→16:38)
[2019-12-31] MEDS: LITHIUM CARBONATE 600 MG CAPSULE PO SCH ×2 (08:02→16:37)
[2019-12-31] MEDS: CHOLECALCIFEROL (VIT D3) 1,000 UNITS [25 MCG] TABLET PO SCH (08:02)
[2019-12-31] MEDS: OLANZapine 5 MG TABLET PO SCH ×2 (08:02→16:37)
[2019-12-31 09:10] VITALS: BP 112/59
[2019-12-31 11:56] LABS: GLUCOMETER DEV NAME(LOC) 3E.C; GLUCOSE,POINT OF CARE 98 MG/DL (70-110)
[2019-12-31] MEDS: INSULIN LISPRO 100 UNITS/ML SQ PRN (13:39)
[2019-12-31 16:23] LABS: GLUCOMETER DEV NAME(LOC) 3E.C; GLUCOSE,POINT OF CARE 108 MG/DL (70-110)
[2019-12-31 19:28] VITALS: BP 121/64
[2019-12-31 20:20] VITALS: BP 126/72
[2019-12-31] MEDS: IBUPROFEN 600 MG TABLET PO PRN (20:22)
[2019-12-31 20:29] LABS: GLUCOMETER DEV NAME(LOC) 3E.C; GLUCOSE,POINT OF CARE 109 MG/DL (70-110)
[2019-12-31] MEDS: LURASIDONE HCL 40 MG TABLET PO SCH (20:33)
[2019-12-31] MEDS: ATORVASTATIN CALCIUM 10 MG TABLET PO SCH (20:33)
[2019-12-31] MEDS: INSULIN GLARGINE,HUM.REC.ANLOG 100 UNITS/ML SQ SCH (21:59)
[2020-01-01 06:24] LABS: GLUCOMETER DEV NAME(LOC) 3E.C; GLUCOSE,POINT OF CARE 121 MG/DL (70-110)
[2020-01-01] MEDS: INSULIN LISPRO 100 UNITS/ML SQ PRN (06:32)
[2020-01-01] MEDS: LEVOTHYROXINE SODIUM 25 MCG TABLET PO SCH (06:47)
[2020-01-01] MEDS: MetFORMIN HCL 500 MG TABLET PO SCH ×2 (06:48→17:34)
[2020-01-01] MEDS: OLANZapine 5 MG TABLET PO SCH ×2 (08:14→16:25)
[2020-01-01] MEDS: LITHIUM CARBONATE 600 MG CAPSULE PO SCH ×2 (08:14→16:25)
[2020-01-01] MEDS: CHOLECALCIFEROL (VIT D3) 1,000 UNITS [25 MCG] TABLET PO SCH (08:14)
[2020-01-01] MEDS: LISINOPRIL 10 MG TABLET PO SCH (08:14)
[2020-01-01] MEDS: GABAPENTIN 300 MG CAPSULE PO SCH ×2 (08:14→16:25)
[2020-01-01 08:16] VITALS: BP 113/68
[2020-01-01] MEDS: QUEtiapine FUMARATE 25 MG TABLET PO PRN ×3 (08:16→23:48)
[2020-01-01] MEDS ORDERED: LORazepam 2 MG/ML VIAL ONE (09:59)
[2020-01-01] MEDS ORDERED: HALOPERIDOL LACTATE 5 MG/ML VIAL ONE (09:59)
[2020-01-01] MEDS ORDERED: HALOPERIDOL LACTATE 5 MG/ML VIAL IM ONE (10:00)
[2020-01-01] MEDS ORDERED: LORazepam 2 MG/ML VIAL IM ONE (10:00)
[2020-01-01] MEDS ORDERED: DiphenhydrAMINE HCL 50 MG/ML VIAL IM ONE (10:00)
[2020-01-01] MEDS ORDERED: DiphenhydrAMINE HCL 50 MG/ML VIAL ONE (10:00)
[2020-01-01 12:18] LABS: GLUCOMETER DEV NAME(LOC) 3E.C; GLUCOSE,POINT OF CARE 96 MG/DL (70-110)
[2020-01-01 16:00] VITALS: BP 109/57
[2020-01-01 16:38] LABS: GLUCOMETER DEV NAME(LOC) 3E.C; GLUCOSE,POINT OF CARE 114 MG/DL (70-110)
[2020-01-01] MEDS: LURASIDONE HCL 40 MG TABLET PO SCH (20:43)
[2020-01-01] MEDS: ATORVASTATIN CALCIUM 10 MG TABLET PO SCH (20:43)
[2020-01-01 20:55] LABS: GLUCOMETER DEV NAME(LOC) 3E.C; GLUCOSE,POINT OF CARE 104 MG/DL (70-110)
[2020-01-01] MEDS: INSULIN GLARGINE,HUM.REC.ANLOG 100 UNITS/ML SQ SCH (21:00)
[2020-01-02 00:21] VITALS: BP 141/72
[2020-01-02 06:16] LABS: GLUCOMETER DEV NAME(LOC) 3E.C; GLUCOSE,POINT OF CARE 86 MG/DL (70-110)
[2020-01-02] MEDS: ALBUTEROL SULFATE HFA 90 MCG/PUFF 8 GM INHALER IH PRN (06:26)
[2020-01-02] MEDS: INSULIN LISPRO 100 UNITS/ML SQ PRN (06:43)
[2020-01-02] MEDS: MetFORMIN HCL 500 MG TABLET PO SCH ×2 (06:50→17:38)
[2020-01-02] MEDS: LEVOTHYROXINE SODIUM 25 MCG TABLET PO SCH (06:50)
[2020-01-02] MEDS: CHOLECALCIFEROL (VIT D3) 1,000 UNITS [25 MCG] TABLET PO SCH (08:03)
[2020-01-02] MEDS: LITHIUM CARBONATE 600 MG CAPSULE PO SCH ×2 (08:03→16:18)
[2020-01-02] MEDS: LISINOPRIL 10 MG TABLET PO SCH (08:04)
[2020-01-02] MEDS: QUEtiapine FUMARATE 25 MG TABLET PO PRN (08:04)
[2020-01-02] MEDS: OLANZapine 5 MG TABLET PO SCH ×2 (08:06→16:18)
[2020-01-02] MEDS: GABAPENTIN 300 MG CAPSULE PO SCH ×2 (08:06→16:18)
[2020-01-02 11:52] LABS: GLUCOMETER DEV NAME(LOC) 3E.C; GLUCOSE,POINT OF CARE 105 MG/DL (70-110)
[2020-01-02 16:14] VITALS: BP 134/77
[2020-01-02] MEDS: LORazepam 2 MG TABLET PO PRN (16:18)
[2020-01-02 16:27] LABS: GLUCOMETER DEV NAME(LOC) 3E.C; GLUCOSE,POINT OF CARE 89 MG/DL (70-110)
[2020-01-02] MEDS: LURASIDONE HCL 40 MG TABLET PO SCH (20:23)
[2020-01-02] MEDS: ZOLPIDEM TARTRATE 10 MG TABLET PO PRN (20:24)
[2020-01-02] MEDS: ATORVASTATIN CALCIUM 10 MG TABLET PO SCH (20:24)
[2020-01-02 20:35] LABS: GLUCOMETER DEV NAME(LOC) 3E.C; GLUCOSE,POINT OF CARE 105 MG/DL (70-110)
[2020-01-02] MEDS: INSULIN GLARGINE,HUM.REC.ANLOG 100 UNITS/ML SQ SCH (20:49)
[2020-01-03] MEDS: LORazepam 2 MG TABLET PO PRN ×2 (06:10→16:33)
[2020-01-03] MEDS: HALOPERIDOL 5 MG TABLET PO PRN (06:10)
[2020-01-03] MEDS: LEVOTHYROXINE SODIUM 25 MCG TABLET PO SCH (06:10)
[2020-01-03 06:24] LABS: GLUCOMETER DEV NAME(LOC) 3E.C; GLUCOSE,POINT OF CARE 89 MG/DL (70-110)
[2020-01-03] MEDS: MetFORMIN HCL 500 MG TABLET PO SCH ×2 (06:55→16:43)
[2020-01-03] MEDS: LITHIUM CARBONATE 600 MG CAPSULE PO SCH ×2 (08:07→16:24)
[2020-01-03] MEDS: CHOLECALCIFEROL (VIT D3) 1,000 UNITS [25 MCG] TABLET PO SCH (08:07)
[2020-01-03] MEDS: LISINOPRIL 10 MG TABLET PO SCH (08:08)
[2020-01-03] MEDS: GABAPENTIN 300 MG CAPSULE PO SCH ×2 (08:08→16:24)
[2020-01-03] MEDS: OLANZapine 5 MG TABLET PO SCH ×2 (08:08→16:24)
[2020-01-03 08:40] VITALS: BP 103/57
[2020-01-03 11:10] LABS: GLUCOMETER DEV NAME(LOC) 3E.C; GLUCOSE,POINT OF CARE 96 MG/DL (70-110)
[2020-01-03] MEDS: INSULIN LISPRO 100 UNITS/ML SQ PRN (13:05)
[2020-01-03 16:29] VITALS: BP 121/77
[2020-01-03 16:40] LABS: GLUCOMETER DEV NAME(LOC) 3E.C; GLUCOSE,POINT OF CARE 106 MG/DL (70-110)
[2020-01-03 20:24] LABS: GLUCOMETER DEV NAME(LOC) 3E.C; GLUCOSE,POINT OF CARE 109 MG/DL (70-110)
[2020-01-03] MEDS: QUEtiapine FUMARATE 25 MG TABLET PO PRN (20:24)
[2020-01-03] MEDS: ATORVASTATIN CALCIUM 10 MG TABLET PO SCH (20:24)
[2020-01-03] MEDS: LURASIDONE HCL 40 MG TABLET PO SCH (20:24)
[2020-01-03] MEDS: INSULIN GLARGINE,HUM.REC.ANLOG 100 UNITS/ML SQ SCH (21:01)
[2020-01-04 00:01] VITALS: BP 106/63
[2020-01-04] MEDS: LORazepam 2 MG TABLET PO PRN ×3 (00:02→23:38)
[2020-01-04] MEDS: ZOLPIDEM TARTRATE 10 MG TABLET PO PRN ×2 (00:02→21:59)
[2020-01-04] MEDS: ALBUTEROL SULFATE HFA 90 MCG/PUFF 8 GM INHALER IH PRN (06:21)
[2020-01-04] MEDS: LEVOTHYROXINE SODIUM 25 MCG TABLET PO SCH (07:00)
[2020-01-04] MEDS: MetFORMIN HCL 500 MG TABLET PO SCH ×2 (07:02→18:11)
[2020-01-04] MEDS: CHOLECALCIFEROL (VIT D3) 1,000 UNITS [25 MCG] TABLET PO SCH (08:09)
[2020-01-04] MEDS: GABAPENTIN 300 MG CAPSULE PO SCH ×2 (08:09→16:25)
[2020-01-04] MEDS: LITHIUM CARBONATE 600 MG CAPSULE PO SCH ×2 (08:09→16:25)
[2020-01-04] MEDS: OLANZapine 5 MG TABLET PO SCH ×2 (08:10→16:25)
[2020-01-04] MEDS: LISINOPRIL 10 MG TABLET PO SCH (08:10)
[2020-01-04] MEDS: HALOPERIDOL 5 MG TABLET PO PRN ×3 (08:10→23:38)
[2020-01-04 08:33] VITALS: BP 108/60
[2020-01-04 11:41] LABS: GLUCOMETER DEV NAME(LOC) 3E.I 2; GLUCOSE,POINT OF CARE 102 MG/DL (70-110)
[2020-01-04 15:53] LABS: GLUCOMETER DEV NAME(LOC) 3E.C; GLUCOSE,POINT OF CARE 113 MG/DL (70-110)
[2020-01-04 16:55] VITALS: BP 116/73
[2020-01-04] MEDS: ATORVASTATIN CALCIUM 10 MG TABLET PO SCH (20:11)
[2020-01-04] MEDS: LURASIDONE HCL 40 MG TABLET PO SCH (20:11)
[2020-01-04 20:44] LABS: GLUCOMETER DEV NAME(LOC) 3E.I 2; GLUCOSE,POINT OF CARE 112 MG/DL (70-110)
[2020-01-04] MEDS: INSULIN GLARGINE,HUM.REC.ANLOG 100 UNITS/ML SQ SCH (20:56)
[2020-01-05 01:54] VITALS: BP 131/61
[2020-01-05 06:29] LABS: GLUCOMETER DEV NAME(LOC) 3E.C; GLUCOSE,POINT OF CARE 106 MG/DL (70-110)
[2020-01-05 06:46] LABS: BAND NEUTROPHILS % (MANUAL) 0 % (0-5)
[2020-01-05 06:48] LABS: HEMATOCRIT 32.7 % (41-53); MEAN CORPUSCULAR HEMOGLOBIN 32.2 pg (26.0-34.0); MEAN CORPUSCULAR HGB CONC 33.8 G/dL (31.0-37.0); MEAN CORPUSCULAR VOLUME 95 fL (80-100); PLATELET COUNT (AUTO) 119 K/uL (150-450); RED BLOOD CELL COUNT(AUTO) 3.43 MIL/uL (4.50-5.90); RED CELL DISTRIBUTION WIDTH 13.3 % (11.5-14.5)
[2020-01-05] MEDS: MetFORMIN HCL 500 MG TABLET PO SCH ×2 (06:57→17:32)
[2020-01-05] MEDS: LEVOTHYROXINE SODIUM 25 MCG TABLET PO SCH (06:57)
[2020-01-05 07:16] LABS: ANION GAP 5 mmol/L (8-16); CALCIUM, TOTAL 9.7 mg/dL (8.8-10.5); CARBON DIOXIDE 30 mmol/L (22-29); CHLORIDE 109 mmol/L (98-107); CHOL/HDL RATIO 2.1 (4.2-7.3); CHOLESTEROL 98 mg/dL (131-200); CREATININE 0.71 mg/dL (0.60-1.30); GLOMERULAR FILTR. RATE CALC > 60 mL/min (>60); GLUCOSE,RANDOM 117 mg/dL (70-110); HDL CHOLESTEROL 47 mg/dL (40-60); LDL CHOL (CALC.) 39 mg/dL (0-130); PHOSPHORUS 4.2 mg/dL (2.5-4.9); POTASSIUM 5.2 mmol/L (3.5-5.1); SODIUM SERUM 144 mmol/L (136-145); TRIGLYCERIDES 62 mg/dL (15-150); UREA NITROGEN, BLOOD 15 mg/dL (7-18)
[2020-01-05 07:39] LABS: THYROID STIMULATING HORMONE 1.04 uIU/mL (0.36-3.74)
[2020-01-05 08:00] VITALS: BP 153/87
[2020-01-05] MEDS: GABAPENTIN 300 MG CAPSULE PO SCH ×2 (08:04→16:11)
[2020-01-05] MEDS: LITHIUM CARBONATE 600 MG CAPSULE PO SCH ×2 (08:04→16:11)
[2020-01-05] MEDS: CHOLECALCIFEROL (VIT D3) 1,000 UNITS [25 MCG] TABLET PO SCH (08:04)
[2020-01-05] MEDS: LISINOPRIL 10 MG TABLET PO SCH (08:04)
[2020-01-05] MEDS: OLANZapine 5 MG TABLET PO SCH ×2 (08:04→16:11)
[2020-01-05 08:38] LABS: HEMOGLOBIN A1C 6.6 % (3.8-5.6)
[2020-01-05] MEDS ORDERED: LITH600 PO (09:19)
[2020-01-05] MEDS ORDERED: LURA40TA2 PO (09:22)
[2020-01-05 11:57] LABS: BASOPHILS % (MANUAL) 2 % (0-2); EOSINOPHILS % (MANUAL) 4 % (1-6); LYMPHOCYTES % (MANUAL) 11 % (22-44); MONOCYTES % (MANUAL) 9 % (2-9); SEGMENTED NEUTROPHILS % 74 % (40-70)
[2020-01-05 12:00] LABS: GLUCOMETER DEV NAME(LOC) 3E.C; GLUCOSE,POINT OF CARE 78 MG/DL (70-110)
[2020-01-05 16:21] LABS: GLUCOMETER DEV NAME(LOC) 3E.C; GLUCOSE,POINT OF CARE 110 MG/DL (70-110)
[2020-01-05 16:29] VITALS: BP 122/62
[2020-01-05] MEDS: ATORVASTATIN CALCIUM 10 MG TABLET PO SCH (20:06)
[2020-01-05] MEDS: LURASIDONE HCL 40 MG TABLET PO SCH (20:06)
[2020-01-05] MEDS: LORazepam 2 MG TABLET PO PRN (20:07)
[2020-01-05 20:17] LABS: GLUCOMETER DEV NAME(LOC) 3E.C; GLUCOSE,POINT OF CARE 117 MG/DL (70-110)
[2020-01-05] MEDS: INSULIN GLARGINE,HUM.REC.ANLOG 100 UNITS/ML SQ SCH (20:59)
[2020-01-05] MEDS: ZOLPIDEM TARTRATE 10 MG TABLET PO PRN (21:26)
[2020-01-05] MEDS: HALOPERIDOL 5 MG TABLET PO PRN (21:26)
[2020-01-06 06:14] LABS: GLUCOMETER DEV NAME(LOC) 3E.C; GLUCOSE,POINT OF CARE 112 MG/DL (70-110)
[2020-01-06] MEDS: MetFORMIN HCL 500 MG TABLET PO SCH ×2 (06:51→18:01)
[2020-01-06] MEDS: LEVOTHYROXINE SODIUM 25 MCG TABLET PO SCH (06:51)
[2020-01-06] MEDS: INSULIN LISPRO 100 UNITS/ML SQ PRN (06:51)
[2020-01-06] MEDS: GABAPENTIN 300 MG CAPSULE PO SCH ×2 (08:09→15:55)
[2020-01-06] MEDS: LISINOPRIL 10 MG TABLET PO SCH (08:09)
[2020-01-06] MEDS: LITHIUM CARBONATE 600 MG CAPSULE PO SCH ×2 (08:09→15:55)
[2020-01-06] MEDS: OLANZapine 5 MG TABLET PO SCH ×2 (08:09→15:55)
[2020-01-06] MEDS: CHOLECALCIFEROL (VIT D3) 1,000 UNITS [25 MCG] TABLET PO SCH (08:09)
[2020-01-06] MEDS: ALBUTEROL SULFATE HFA 90 MCG/PUFF 8 GM INHALER IH PRN (08:17)
[2020-01-06 08:33] VITALS: BP 117/65
[2020-01-06 11:10] LABS: GLUCOMETER DEV NAME(LOC) 3E.C; GLUCOSE,POINT OF CARE 82 MG/DL (70-110)
[2020-01-06] MEDS: HALOPERIDOL 5 MG TABLET PO PRN ×2 (15:56→21:04)
[2020-01-06 16:00] VITALS: BP 110/63
[2020-01-06 16:17] LABS: GLUCOMETER DEV NAME(LOC) 3E.C; GLUCOSE,POINT OF CARE 91 MG/DL (70-110)
[2020-01-06] MEDS: LORazepam 2 MG TABLET PO PRN (19:47)
[2020-01-06 20:20] LABS: GLUCOMETER DEV NAME(LOC) 3E.C; GLUCOSE,POINT OF CARE 105 MG/DL (70-110)
[2020-01-06] MEDS: LURASIDONE HCL 40 MG TABLET PO SCH (20:45)
[2020-01-06] MEDS: ATORVASTATIN CALCIUM 10 MG TABLET PO SCH (20:45)
[2020-01-06] MEDS: INSULIN GLARGINE,HUM.REC.ANLOG 100 UNITS/ML SQ SCH (21:00)
[2020-01-06] MEDS: ZOLPIDEM TARTRATE 10 MG TABLET PO PRN (21:05)
[2020-01-07 04:05] VITALS: BP 109/57
[2020-01-07] MEDS: IBUPROFEN 600 MG TABLET PO PRN ×2 (04:09→08:31)
[2020-01-07 04:36] LABS: GLUCOMETER DEV NAME(LOC) 3E.C; GLUCOSE,POINT OF CARE 128 MG/DL (70-110)
[2020-01-07 06:29] LABS: GLUCOMETER DEV NAME(LOC) 3E.C; GLUCOSE,POINT OF CARE 102 MG/DL (70-110)
[2020-01-07] MEDS: LEVOTHYROXINE SODIUM 25 MCG TABLET PO SCH (06:49)
[2020-01-07] MEDS: INSULIN LISPRO 100 UNITS/ML SQ PRN (06:50)
[2020-01-07] MEDS: MetFORMIN HCL 500 MG TABLET PO SCH ×2 (06:59→16:41)
[2020-01-07] MEDS: CHOLECALCIFEROL (VIT D3) 1,000 UNITS [25 MCG] TABLET PO SCH (08:28)
[2020-01-07] MEDS: GABAPENTIN 300 MG CAPSULE PO SCH ×2 (08:28→16:41)
[2020-01-07] MEDS: OLANZapine 5 MG TABLET PO SCH ×2 (08:28→16:41)
[2020-01-07] MEDS: LISINOPRIL 10 MG TABLET PO SCH (08:28)
[2020-01-07] MEDS: LITHIUM CARBONATE 600 MG CAPSULE PO SCH ×2 (08:29→16:41)
[2020-01-07 08:31] VITALS: BP 115/69
[2020-01-07 08:38] VITALS: BP 115/69
[2020-01-07 11:34] LABS: GLUCOMETER DEV NAME(LOC) 3E.C; GLUCOSE,POINT OF CARE 78 MG/DL (70-110)
[2020-01-07 16:13] VITALS: BP 112/66
[2020-01-07 16:20] LABS: GLUCOMETER DEV NAME(LOC) 3E.C; GLUCOSE,POINT OF CARE 85 MG/DL (70-110)
[2020-01-07 20:22] LABS: GLUCOMETER DEV NAME(LOC) 3E.C; GLUCOSE,POINT OF CARE 107 MG/DL (70-110)
[2020-01-07] MEDS: ATORVASTATIN CALCIUM 10 MG TABLET PO SCH (20:46)
[2020-01-07] MEDS: LURASIDONE HCL 40 MG TABLET PO SCH (20:46)
[2020-01-07] MEDS: OLANZapine 10 MG TABLET PO SCH (20:48)
[2020-01-07] MEDS: INSULIN GLARGINE,HUM.REC.ANLOG 100 UNITS/ML SQ SCH (20:57)
[2020-01-08 01:24] VITALS: BP 114/59
[2020-01-08] MEDS: ZOLPIDEM TARTRATE 10 MG TABLET PO PRN (02:29)
[2020-01-08 06:03] LABS: GLUCOMETER DEV NAME(LOC) 3E.C; GLUCOSE,POINT OF CARE 106 MG/DL (70-110)
[2020-01-08] MEDS: LEVOTHYROXINE SODIUM 25 MCG TABLET PO SCH (07:11)
[2020-01-08] MEDS: MetFORMIN HCL 500 MG TABLET PO SCH ×2 (07:11→17:34)
[2020-01-08] MEDS: INSULIN LISPRO 100 UNITS/ML SQ PRN ×2 (07:12→12:49)
[2020-01-08 08:20] VITALS: BP 141/68
[2020-01-08] MEDS: LITHIUM CARBONATE 600 MG CAPSULE PO SCH ×2 (09:04→16:06)
[2020-01-08] MEDS: LISINOPRIL 10 MG TABLET PO SCH (09:04)
[2020-01-08] MEDS: CHOLECALCIFEROL (VIT D3) 1,000 UNITS [25 MCG] TABLET PO SCH (09:06)
[2020-01-08] MEDS: GABAPENTIN 300 MG CAPSULE PO SCH ×2 (09:07→16:06)
[2020-01-08] MEDS: ALBUTEROL SULFATE HFA 90 MCG/PUFF 8 GM INHALER IH PRN (10:09)
[2020-01-08 11:28] LABS: APPEARANCE,URINE CLEAR (CLEAR); BILIRUBIN,URINE NEGATIVE (NEGATIVE); GLUCOSE, URINE (UA) NEGATIVE (NEGATIVE); KETONES,URINE NEGATIVE (NEGATIVE); LEUKOCYTE ESTERASE ,URINE NEGATIVE (NEGATIVE); NITRATE,URINE NEGATIVE (NEGATIVE); OCCULT BLOOD,URINE NEGATIVE (NEGATIVE); PROTEIN,URINE NEGATIVE (NEGATIVE)
[2020-01-08 12:56] LABS: GLUCOMETER DEV NAME(LOC) 3E.C; GLUCOSE,POINT OF CARE 185 MG/DL (70-110)
[2020-01-08] MEDS: HALOPERIDOL 5 MG TABLET PO PRN ×2 (16:06→20:21)
[2020-01-08 16:12] VITALS: BP 153/74
[2020-01-08 16:19] LABS: GLUCOMETER DEV NAME(LOC) 3E.C; GLUCOSE,POINT OF CARE 106 MG/DL (70-110)
[2020-01-08] MEDS: OLANZapine 10 MG TABLET PO SCH (20:21)
[2020-01-08] MEDS: LORazepam 2 MG TABLET PO PRN (20:21)
[2020-01-08] MEDS: LURASIDONE HCL 40 MG TABLET PO SCH (20:24)
[2020-01-08] MEDS: INSULIN GLARGINE,HUM.REC.ANLOG 100 UNITS/ML SQ SCH (20:24)
[2020-01-08] MEDS: ATORVASTATIN CALCIUM 10 MG TABLET PO SCH (20:24)
[2020-01-08 20:30] LABS: GLUCOMETER DEV NAME(LOC) 3E.C; GLUCOSE,POINT OF CARE 86 MG/DL (70-110)
[2020-01-09 05:36] LABS: GLUCOMETER DEV NAME(LOC) 3E.I 2; GLUCOSE,POINT OF CARE 101 MG/DL (70-110)
[2020-01-09] MEDS: LEVOTHYROXINE SODIUM 25 MCG TABLET PO SCH (06:59)
[2020-01-09] MEDS: MetFORMIN HCL 500 MG TABLET PO SCH ×2 (06:59→17:30)
[2020-01-09] MEDS: INSULIN LISPRO 100 UNITS/ML SQ PRN (07:01)
[2020-01-09] MEDS: LITHIUM CARBONATE 600 MG CAPSULE PO SCH ×2 (08:43→16:14)
[2020-01-09] MEDS: CHOLECALCIFEROL (VIT D3) 1,000 UNITS [25 MCG] TABLET PO SCH (08:43)
[2020-01-09] MEDS: LISINOPRIL 10 MG TABLET PO SCH (08:43)
[2020-01-09] MEDS: GABAPENTIN 300 MG CAPSULE PO SCH ×2 (08:43→16:15)
[2020-01-09 08:47] VITALS: BP 143/83
[2020-01-09 11:03] LABS: GLUCOMETER DEV NAME(LOC) 3E.C; GLUCOSE,POINT OF CARE 107 MG/DL (70-110)
[2020-01-09] MEDS: HALOPERIDOL 5 MG TABLET PO PRN (16:14)
[2020-01-09 16:24] LABS: GLUCOMETER DEV NAME(LOC) 3E.C; GLUCOSE,POINT OF CARE 99 MG/DL (70-110)
[2020-01-09 16:34] VITALS: BP 141/78
[2020-01-09] MEDS: LORazepam 2 MG TABLET PO PRN (17:03)
[2020-01-09] MEDS: INSULIN GLARGINE,HUM.REC.ANLOG 100 UNITS/ML SQ SCH (21:00)
[2020-01-09] MEDS: ATORVASTATIN CALCIUM 10 MG TABLET PO SCH (21:41)
[2020-01-09] MEDS: OLANZapine 10 MG TABLET PO SCH (21:41)
[2020-01-09] MEDS: LURASIDONE HCL 40 MG TABLET PO SCH (21:42)
[2020-01-09 22:05] LABS: GLUCOMETER DEV NAME(LOC) 3E.C; GLUCOSE,POINT OF CARE 117 MG/DL (70-110)
[2020-01-10 00:02] VITALS: BP 140/72
[2020-01-10] MEDS: ZOLPIDEM TARTRATE 10 MG TABLET PO PRN (00:02)
[2020-01-10] MEDS: IBUPROFEN 600 MG TABLET PO PRN (00:02)
[2020-01-10 06:18] LABS: GLUCOMETER DEV NAME(LOC) 3E.C; GLUCOSE,POINT OF CARE 102 MG/DL (70-110)
[2020-01-10] MEDS: MetFORMIN HCL 500 MG TABLET PO SCH ×2 (06:40→17:08)
[2020-01-10] MEDS: LEVOTHYROXINE SODIUM 25 MCG TABLET PO SCH (06:40)
[2020-01-10 08:00] VITALS: BP 120/68
[2020-01-10] MEDS: CHOLECALCIFEROL (VIT D3) 1,000 UNITS [25 MCG] TABLET PO SCH (08:34)
[2020-01-10] MEDS: LISINOPRIL 10 MG TABLET PO SCH (08:34)
[2020-01-10] MEDS: GABAPENTIN 300 MG CAPSULE PO SCH ×2 (08:34→16:02)
[2020-01-10] MEDS: LITHIUM CARBONATE 600 MG CAPSULE PO SCH ×2 (08:34→16:02)
[2020-01-10 11:42] LABS: GLUCOMETER DEV NAME(LOC) 3E.C; GLUCOSE,POINT OF CARE 116 MG/DL (70-110)
[2020-01-10] MEDS: INSULIN LISPRO 100 UNITS/ML SQ PRN ×2 (11:44→16:39)
[2020-01-10] MEDS: HALOPERIDOL 5 MG TABLET PO PRN (16:02)
[2020-01-10 16:09] VITALS: BP 128/78
[2020-01-10 16:11] LABS: GLUCOMETER DEV NAME(LOC) 3E.C; GLUCOSE,POINT OF CARE 170 MG/DL (70-110)
[2020-01-10] MEDS: ATORVASTATIN CALCIUM 10 MG TABLET PO SCH (20:17)
[2020-01-10] MEDS: LURASIDONE HCL 40 MG TABLET PO SCH (20:17)
[2020-01-10] MEDS: LORazepam 2 MG TABLET PO PRN (20:18)
[2020-01-10] MEDS: OLANZapine 10 MG TABLET PO SCH (20:18)
[2020-01-10] MEDS: INSULIN GLARGINE,HUM.REC.ANLOG 100 UNITS/ML SQ SCH (20:22)
[2020-01-10 20:45] LABS: GLUCOMETER DEV NAME(LOC) 3E.C; GLUCOSE,POINT OF CARE 139 MG/DL (70-110)
[2020-01-11] MEDS: IBUPROFEN 600 MG TABLET PO PRN (03:16)
[2020-01-11] MEDS: LORazepam 2 MG TABLET PO PRN (03:16)
[2020-01-11 06:26] LABS: GLUCOMETER DEV NAME(LOC) 3E.C; GLUCOSE,POINT OF CARE 111 MG/DL (70-110)
[2020-01-11] MEDS: LEVOTHYROXINE SODIUM 25 MCG TABLET PO SCH (06:41)
[2020-01-11] MEDS: MetFORMIN HCL 500 MG TABLET PO SCH ×2 (06:41→16:40)
[2020-01-11] MEDS: GABAPENTIN 300 MG CAPSULE PO SCH ×2 (08:01→16:40)
[2020-01-11] MEDS: CHOLECALCIFEROL (VIT D3) 1,000 UNITS [25 MCG] TABLET PO SCH (08:01)
[2020-01-11] MEDS: LISINOPRIL 10 MG TABLET PO SCH (08:01)
[2020-01-11] MEDS: LITHIUM CARBONATE 600 MG CAPSULE PO SCH ×2 (08:01→16:40)
[2020-01-11 08:31] VITALS: BP 119/78
[2020-01-11 11:39] LABS: GLUCOMETER DEV NAME(LOC) 3E.C; GLUCOSE,POINT OF CARE 92 MG/DL (70-110)
[2020-01-11 16:20] LABS: GLUCOMETER DEV NAME(LOC) 3E.C; GLUCOSE,POINT OF CARE 101 MG/DL (70-110)
[2020-01-11 16:29] VITALS: BP 111/59
[2020-01-11 20:29] LABS: GLUCOMETER DEV NAME(LOC) 3E.C; GLUCOSE,POINT OF CARE 100 MG/DL (70-110)
[2020-01-11] MEDS: OLANZapine 10 MG TABLET PO SCH (20:39)
[2020-01-11] MEDS: LURASIDONE HCL 40 MG TABLET PO SCH (20:39)
[2020-01-11] MEDS: ATORVASTATIN CALCIUM 10 MG TABLET PO SCH (20:39)
[2020-01-11] MEDS: INSULIN GLARGINE,HUM.REC.ANLOG 100 UNITS/ML SQ SCH (20:59)
[2020-01-12 05:21] VITALS: BP 152/65
[2020-01-12] MEDS: LEVOTHYROXINE SODIUM 25 MCG TABLET PO SCH (06:05)
[2020-01-12 06:15] LABS: GLUCOMETER DEV NAME(LOC) 3E.C; GLUCOSE,POINT OF CARE 110 MG/DL (70-110)
[2020-01-12] MEDS: MetFORMIN HCL 500 MG TABLET PO SCH ×2 (06:45→16:48)
[2020-01-12] MEDS: GABAPENTIN 300 MG CAPSULE PO SCH ×2 (08:14→16:49)
[2020-01-12] MEDS: CHOLECALCIFEROL (VIT D3) 1,000 UNITS [25 MCG] TABLET PO SCH (08:14)
[2020-01-12] MEDS: LITHIUM CARBONATE 600 MG CAPSULE PO SCH ×2 (08:14→16:48)
[2020-01-12] MEDS: LISINOPRIL 10 MG TABLET PO SCH (08:14)
[2020-01-12 09:11] VITALS: BP 106/67
[2020-01-12 11:58] LABS: GLUCOMETER DEV NAME(LOC) 3E.C; GLUCOSE,POINT OF CARE 117 MG/DL (70-110)
[2020-01-12 16:48] LABS: GLUCOMETER DEV NAME(LOC) 3E.C; GLUCOSE,POINT OF CARE 108 MG/DL (70-110)
[2020-01-12] MEDS: HALOPERIDOL 5 MG TABLET PO PRN (16:48)
[2020-01-12] MEDS: LORazepam 2 MG TABLET PO PRN (16:48)
[2020-01-12 18:03] VITALS: BP 124/66
[2020-01-12] MEDS: ATORVASTATIN CALCIUM 10 MG TABLET PO SCH (20:52)
[2020-01-12] MEDS: LURASIDONE HCL 40 MG TABLET PO SCH (20:52)
[2020-01-12] MEDS: OLANZapine 10 MG TABLET PO SCH (20:52)
[2020-01-12] MEDS: INSULIN GLARGINE,HUM.REC.ANLOG 100 UNITS/ML SQ SCH (21:33)
[2020-01-12] MEDS: INSULIN LISPRO 100 UNITS/ML SQ PRN (21:33)
[2020-01-12 21:36] LABS: GLUCOMETER DEV NAME(LOC) 3E.C; GLUCOSE,POINT OF CARE 162 MG/DL (70-110)
[2020-01-13 06:29] LABS: GLUCOMETER DEV NAME(LOC) 3E.C; GLUCOSE,POINT OF CARE 128 MG/DL (70-110)
[2020-01-13] MEDS: MetFORMIN HCL 500 MG TABLET PO SCH ×2 (06:29→16:33)
[2020-01-13] MEDS: LEVOTHYROXINE SODIUM 25 MCG TABLET PO SCH (06:29)
[2020-01-13] MEDS: GABAPENTIN 300 MG CAPSULE PO SCH ×2 (08:22→16:34)
[2020-01-13] MEDS: CHOLECALCIFEROL (VIT D3) 1,000 UNITS [25 MCG] TABLET PO SCH (08:22)
[2020-01-13] MEDS: LITHIUM CARBONATE 600 MG CAPSULE PO SCH ×2 (08:22→16:34)
[2020-01-13] MEDS: LISINOPRIL 10 MG TABLET PO SCH (08:22)
[2020-01-13 09:47] VITALS: BP 110/61
[2020-01-13 11:27] LABS: GLUCOMETER DEV NAME(LOC) 3E.C; GLUCOSE,POINT OF CARE 127 MG/DL (70-110)
[2020-01-13 16:08] VITALS: BP 125/78
[2020-01-13 16:28] LABS: GLUCOMETER DEV NAME(LOC) 3E.C; GLUCOSE,POINT OF CARE 158 MG/DL (70-110)
[2020-01-13] MEDS: INSULIN LISPRO 100 UNITS/ML SQ PRN (17:37)
[2020-01-13] MEDS: HALOPERIDOL 5 MG TABLET PO PRN (20:30)
[2020-01-13] MEDS: OLANZapine 10 MG TABLET PO SCH (20:30)
[2020-01-13] MEDS: LURASIDONE HCL 40 MG TABLET PO SCH (20:30)
[2020-01-13] MEDS: ATORVASTATIN CALCIUM 10 MG TABLET PO SCH (20:30)
[2020-01-13] MEDS: INSULIN GLARGINE,HUM.REC.ANLOG 100 UNITS/ML SQ SCH (20:32)
[2020-01-13 20:38] LABS: GLUCOMETER DEV NAME(LOC) 3E.I 2; GLUCOSE,POINT OF CARE 122 MG/DL (70-110)
[2020-01-13] MEDS: LORazepam 2 MG TABLET PO PRN (21:29)
[2020-01-14] VITALS (9 sets, daily range): BP systolic 108–121; BP diastolic 56–74
[2020-01-14 05:49] LABS: GLUCOMETER DEV NAME(LOC) 3E.I 2; GLUCOSE,POINT OF CARE 127 MG/DL (70-110)
[2020-01-14] MEDS: LEVOTHYROXINE SODIUM 25 MCG TABLET PO SCH (06:51)
[2020-01-14] MEDS: MetFORMIN HCL 500 MG TABLET PO SCH ×2 (06:51→16:50)
[2020-01-14] MEDS ORDERED: BACITRACIN 28.4 GM OINTMENT TP PRN (10:15)
[2020-01-14] MEDS: CHOLECALCIFEROL (VIT D3) 1,000 UNITS [25 MCG] TABLET PO SCH (10:28)
[2020-01-14] MEDS: HALOPERIDOL 5 MG TABLET PO PRN (10:28)
[2020-01-14] MEDS: LISINOPRIL 10 MG TABLET PO SCH (10:28)
[2020-01-14] MEDS: LITHIUM CARBONATE 600 MG CAPSULE PO SCH ×2 (10:28→16:50)
[2020-01-14] MEDS: GABAPENTIN 300 MG CAPSULE PO SCH ×2 (10:29→16:50)
[2020-01-14 15:43] LABS: GLUCOMETER DEV NAME(LOC) 3E.I 2; GLUCOSE,POINT OF CARE 148 MG/DL (70-110)
[2020-01-14 17:11] LABS: GLUCOMETER DEV NAME(LOC) 3E.I 2; GLUCOSE,POINT OF CARE 121 MG/DL (70-110)
[2020-01-14] MEDS: LURASIDONE HCL 40 MG TABLET PO SCH (21:10)
[2020-01-14] MEDS: OLANZapine 10 MG TABLET PO SCH (21:10)
[2020-01-14] MEDS: ATORVASTATIN CALCIUM 10 MG TABLET PO SCH (21:10)
[2020-01-14] MEDS: INSULIN GLARGINE,HUM.REC.ANLOG 100 UNITS/ML SQ SCH (21:19)
[2020-01-14 21:28] LABS: GLUCOMETER DEV NAME(LOC) 3E.I 2; GLUCOSE,POINT OF CARE 138 MG/DL (70-110)
[2020-01-14] MEDS: ZOLPIDEM TARTRATE 10 MG TABLET PO PRN (23:42)
[2020-01-15 05:10] VITALS: BP 109/60
[2020-01-15] MEDS: IBUPROFEN 600 MG TABLET PO PRN (05:11)
[2020-01-15 05:38] LABS: GLUCOMETER DEV NAME(LOC) 3E.I 2; GLUCOSE,POINT OF CARE 141 MG/DL (70-110)
[2020-01-15] MEDS: LEVOTHYROXINE SODIUM 25 MCG TABLET PO SCH (06:30)
[2020-01-15] MEDS: MetFORMIN HCL 500 MG TABLET PO SCH (06:30)
[2020-01-15] MEDS: INSULIN LISPRO 100 UNITS/ML SQ PRN (06:31)
[2020-01-15 08:14] VITALS: BP 112/55
[2020-01-15] MEDS: LISINOPRIL 10 MG TABLET PO SCH (08:54)
[2020-01-15] MEDS: CHOLECALCIFEROL (VIT D3) 1,000 UNITS [25 MCG] TABLET PO SCH (08:54)
[2020-01-15] MEDS: QUEtiapine FUMARATE 25 MG TABLET PO PRN (08:54)
[2020-01-15] MEDS: LORazepam 2 MG TABLET PO PRN (08:54)
[2020-01-15] MEDS: GABAPENTIN 300 MG CAPSULE PO SCH (08:54)
[2020-01-15] MEDS: HALOPERIDOL 5 MG TABLET PO PRN (08:54)
[2020-01-15] MEDS: LITHIUM CARBONATE 600 MG CAPSULE PO SCH (08:55)
[2020-01-15 11:02] LABS: GLUCOMETER DEV NAME(LOC) 3E.I 2; GLUCOSE,POINT OF CARE 146 MG/DL (70-110)
[2020-01-15] MEDS ORDERED: OLAN10TA3 PO (11:52)
[2020-01-15] MEDS ORDERED: CHOL100018 PO (11:53)
== END 2020-01-15 15:04 | disposition home or self-care (01) | DRG 885 ==
LOC: 3EC 20:18 → 3EI 01-13 18:00
PROVIDERS: ADMIT Psychiatry & Neurology Child & Adolescent Psychiatry; ATTEND Psychiatry & Neurology Psychiatry
DX: F25.0 Schizoaffective disorder, bipolar type (principal); Z91.19 Patient's noncompliance with other medical treatment and regimen; F41.9 Anxiety disorder, unspecified; Z59.0 Homelessness; E11.9 Type 2 diabetes mellitus without complications; E78.00 Pure hypercholesterolemia, unspecified; K74.60 Unspecified cirrhosis of liver; G47.33 Obstructive sleep apnea (adult) (pediatric); K59.00 Constipation, unspecified; E66.9 Obesity, unspecified; E03.9 Hypothyroidism, unspecified; J44.9 Chronic obstructive pulmonary disease, unspecified; I10 Essential (primary) hypertension
CPT/HCPCS: 70450; 71101; 83036; 83735; 84100; 84443; 85007; 87081; J1200; J1630; J1815; J2060; J3230; J3535

== ENCOUNTER 2020-02-01 19:19 | Inpatient (IN) | payer MEDICARE, MEDICAID ==
[~2020-02-01] VITALS: Ht 172.7 cm; Wt 111.4 kg
[~2020-02-01 19:19] MED LIST changes: -ACET-3207 PO; -ARIP400S3 IM; -ATOR10TA69 PO; +CHOL100018 PO; -FLUD25I IM; -HEPA500018 SQ; -INSU100V SQ; -LEVO-72 PO; -LEVO25TA PO; +LITH600 PO; +LURA40TA2 PO; +OLAN10TA3 PO; -OLAN5TAB27 PO; -SITA100 PO
[2020-02-01 20:39] LABS: BASOPHILS % (AUTO) 0.6 % (0.0-2.0); EOSINOPHILS % (AUTO) 3.4 % (1.0-6.0); HEMATOCRIT 30.8 % (41-53); LYMPHOCYTES % (AUTO) 11.8 % (22.0-44.0); MEAN CORPUSCULAR HEMOGLOBIN 30.9 pg (26.0-34.0); MEAN CORPUSCULAR HGB CONC 32.5 G/dL (31.0-37.0); MEAN CORPUSCULAR VOLUME 95 fL (80-100); MONOCYTES # (AUTO) 0.9 K/uL (0.1-1.0); NEUTROPHILS # (AUTO) 6.3 K/uL (1.8-7.7); NEUTROPHILS % (AUTO) 73.2 % (40.0-70.0); PLATELET COUNT (AUTO) 123 K/uL (150-450); RED BLOOD CELL COUNT(AUTO) 3.24 MIL/uL (4.50-5.90); RED CELL DISTRIBUTION WIDTH 14.4 % (11.5-14.5)
[2020-02-01 20:54] LABS: ANION GAP 8 mmol/L (8-16); CALCIUM, TOTAL 9.2 mg/dL (8.8-10.5); CARBON DIOXIDE 26 mmol/L (22-29); CHLORIDE 104 mmol/L (98-107); CREATININE 1.75 mg/dL (0.60-1.30); GLOMERULAR FILTR. RATE CALC 41 mL/min (>60); GLUCOSE,RANDOM 110 mg/dL (70-110); POTASSIUM 4.2 mmol/L (3.5-5.1); SODIUM SERUM 138 mmol/L (136-145); UREA NITROGEN, BLOOD 42 mg/dL (7-18)
[2020-02-01 21:00] LABS: ALANINE AMINOTRANSFERASE 40 U/L (12-78); ALBUMIN 3.7 g/dL (3.4-5.0); ALKALINE PHOSPHATASE 96 U/L (46-116); ASPARTATE AMINOTRANSFERASE 23 U/L (15-37); BILIRUBIN,TOTAL 0.6 mg/dL (0.1-1.0); TOTAL PROTEIN, SERUM 7.8 g/dL (6.4-8.2)
[2020-02-01 21:13] LABS: AMPHET/METH SCREEN,URINE NEGATIVE (NEGATIVE); BARBITURATE SCREEN, URINE NEGATIVE (NEGATIVE); BENZODIAZEPINES SCREEN,URINE NEGATIVE (NEGATIVE); CANNABINOID SCREEN,URINE NEGATIVE (NEGATIVE); COCAINE SCREEN,URINE NEGATIVE (NEGATIVE); METHADONE SCREEN, URINE NEGATIVE (NEGATIVE); OPIATE SCREEN,URINE NEGATIVE (NEGATIVE)
[2020-02-01 21:14] LABS: PHENCYCLIDINE SCREEN,URINE NEGATIVE (NEGATIVE)
[2020-02-01] MEDS ORDERED: SODIUM CHLORIDE 0.9% 1,000 ML IV ONE (21:45)
[2020-02-01 22:16] LABS: CREATINE KINASE, TOTAL ONLY 293 U/L (39-308)
[2020-02-01 22:30] LABS: GLUCOSE,POINT OF CARE 105 MG/DL (70-110)
[2020-02-01] MEDS ORDERED: LORazepam 2 MG TABLET PO PRN (23:45)
[2020-02-02 00:53] VITALS: BP 106/56
[2020-02-02 01:26] VITALS: BP 106/56
[2020-02-02 05:45] LABS: GLUCOMETER DEV NAME(LOC) 3E.I 2; GLUCOSE,POINT OF CARE 107 MG/DL (70-110)
[2020-02-02] MEDS ORDERED: DEXTROSE 50%-WATER 25 GM/50 ML SYRINGE IVP PRN (08:45)
[2020-02-02] MEDS ORDERED: OMEPRAZOLE 20 MG CAPSULE PO PRN (08:45)
[2020-02-02] MEDS ORDERED: LOPERAMIDE HCL 2 MG CAPSULE PO PRN (08:45)
[2020-02-02] MEDS ORDERED: ACETAMINOPHEN 325 MG TABLET PO PRN (08:45)
[2020-02-02] MEDS ORDERED: CloNIDine HCL 0.1 MG TABLET PO PRN (08:45)
[2020-02-02] MEDS ORDERED: PETROLATUM,WHITE 28 GM JELLY TP PRN (08:45)
[2020-02-02] MEDS ORDERED: ONDANSETRON HCL 4 MG TABLET PO PRN (08:45)
[2020-02-02] MEDS ORDERED: DOCUSATE SODIUM 100 MG CAPSULE PO PRN (08:45)
[2020-02-02] MEDS ORDERED: ALBUTEROL SULFATE HFA 90 MCG/PUFF 8 GM INHALER IH PRN (08:45)
[2020-02-02] MEDS ORDERED: MAGNESIUM HYDROXIDE SUSPENSION 30 ML UDCUP PO PRN (08:45)
[2020-02-02] MEDS ORDERED: BACITRACIN 28.4 GM OINTMENT TP PRN (08:45)
[2020-02-02] MEDS ORDERED: BENZOCAINE/MENTHOL LOZENGE PO PRN (08:45)
[2020-02-02] MEDS ORDERED: MAG HYDROX/AL HYDROX/SIMETH ES 30 ML SUSPENSION UDCUP PO PRN (08:45)
[2020-02-02 09:00] VITALS: BP 106/51
[2020-02-02 09:05] LABS: CHOL/HDL RATIO 1.9 (4.2-7.3)
[2020-02-02] MEDS: CHOLECALCIFEROL (VIT D3) 1,000 UNITS [25 MCG] TABLET PO SCH (09:09)
[2020-02-02] MEDS: LISINOPRIL 10 MG TABLET PO SCH (09:09)
[2020-02-02] MEDS: GABAPENTIN 300 MG CAPSULE PO SCH ×2 (09:09→16:07)
[2020-02-02] MEDS: IBUPROFEN 600 MG TABLET PO PRN (09:10)
[2020-02-02 12:10] LABS: GLUCOMETER DEV NAME(LOC) 3E.I 2; GLUCOSE,POINT OF CARE 91 MG/DL (70-110)
[2020-02-02] MEDS: LITHIUM CARBONATE 600 MG CAPSULE PO SCH (16:06)
[2020-02-02 16:10] VITALS: BP 110/65
[2020-02-02 16:24] LABS: GLUCOMETER DEV NAME(LOC) 3E.I 2; GLUCOSE,POINT OF CARE 140 MG/DL (70-110)
[2020-02-02] MEDS: MetFORMIN HCL 500 MG TABLET PO SCH (17:21)
[2020-02-02] MEDS: ATORVASTATIN CALCIUM 10 MG TABLET PO SCH (20:11)
[2020-02-02] MEDS: LURASIDONE HCL 80 MG TABLET PO SCH (20:11)
[2020-02-02 21:12] LABS: GLUCOMETER DEV NAME(LOC) 3E.I 2; GLUCOSE,POINT OF CARE 127 MG/DL (70-110)
[2020-02-03 06:01] LABS: GLUCOMETER DEV NAME(LOC) 3E.I 2; GLUCOSE,POINT OF CARE 155 MG/DL (70-110)
[2020-02-03] MEDS: LEVOTHYROXINE SODIUM 25 MCG TABLET PO SCH (07:01)
[2020-02-03] MEDS: MetFORMIN HCL 500 MG TABLET PO SCH ×2 (07:01→16:40)
[2020-02-03 08:00] VITALS: BP 123/63
[2020-02-03] MEDS: LITHIUM CARBONATE 600 MG CAPSULE PO SCH ×2 (09:39→16:40)
[2020-02-03] MEDS: LISINOPRIL 10 MG TABLET PO SCH (09:41)
[2020-02-03] MEDS: CHOLECALCIFEROL (VIT D3) 1,000 UNITS [25 MCG] TABLET PO SCH (09:41)
[2020-02-03] MEDS: GABAPENTIN 300 MG CAPSULE PO SCH ×2 (09:41→16:40)
[2020-02-03 11:57] LABS: GLUCOMETER DEV NAME(LOC) 3E.I 2; GLUCOSE,POINT OF CARE 83 MG/DL (70-110)
[2020-02-03] MEDS ORDERED: DULA0.75 SQ (11:59)
[2020-02-03] MEDS ORDERED: *NON-FORMULARY MED [ENTER DRUG, DOSE, FREQ IN COMMENTS] CLINICAL ONE (12:00)
[2020-02-03] MEDS ORDERED: TRULICITY 0.75 MG/0.5 ML SQ SCH (13:00)
[2020-02-03 16:22] VITALS: BP 99/51
[2020-02-03 16:23] VITALS: BP 99/51
[2020-02-03 17:11] LABS: GLUCOMETER DEV NAME(LOC) 3E.I 2; GLUCOSE,POINT OF CARE 86 MG/DL (70-110)
[2020-02-03] MEDS: LURASIDONE HCL 80 MG TABLET PO SCH (20:03)
[2020-02-03] MEDS: ATORVASTATIN CALCIUM 10 MG TABLET PO SCH (20:04)
[2020-02-03] MEDS: HALOPERIDOL 5 MG TABLET PO PRN (20:09)
[2020-02-03 20:17] LABS: GLUCOMETER DEV NAME(LOC) 3E.I 2; GLUCOSE,POINT OF CARE 123 MG/DL (70-110)
[2020-02-03 20:29] VITALS: BP 121/68
[2020-02-03] MEDS: ZOLPIDEM TARTRATE 10 MG TABLET PO PRN (22:31)
[2020-02-04 05:30] VITALS: BP 112/70
[2020-02-04 05:44] LABS: GLUCOMETER DEV NAME(LOC) 3E.I 2; GLUCOSE,POINT OF CARE 138 MG/DL (70-110)
[2020-02-04] MEDS: MetFORMIN HCL 500 MG TABLET PO SCH ×3 (06:39→17:05)
[2020-02-04] MEDS: LEVOTHYROXINE SODIUM 25 MCG TABLET PO SCH (06:39)
[2020-02-04 08:00] VITALS: BP 104/54
[2020-02-04] MEDS: CHOLECALCIFEROL (VIT D3) 1,000 UNITS [25 MCG] TABLET PO SCH (09:08)
[2020-02-04] MEDS: LITHIUM CARBONATE 600 MG CAPSULE PO SCH ×3 (09:08→17:05)
[2020-02-04] MEDS: GABAPENTIN 300 MG CAPSULE PO SCH ×3 (09:08→17:05)
[2020-02-04] MEDS: LISINOPRIL 10 MG TABLET PO SCH (09:08)
[2020-02-04] MEDS: IPRATROPIUM BROMIDE 0.5 MG/2.5 ML NEB SOLUTION NEB SCH ×4 (11:00→23:00)
[2020-02-04] MEDS: ALBUTEROL SULFATE 2.5 MG/0.5 ML NEB SOLUTION NEB SCH ×4 (11:00→23:00)
[2020-02-04 11:34] LABS: GLUCOMETER DEV NAME(LOC) 3E.I 2; GLUCOSE,POINT OF CARE 90 MG/DL (70-110)
[2020-02-04] MEDS: INSULIN LISPRO 100 UNITS/ML SQ PRN (11:49)
[2020-02-04 17:20] LABS: GLUCOMETER DEV NAME(LOC) 3E.I 2; GLUCOSE,POINT OF CARE 116 MG/DL (70-110)
[2020-02-04] MEDS: LURASIDONE HCL 80 MG TABLET PO SCH (20:14)
[2020-02-04] MEDS: ATORVASTATIN CALCIUM 10 MG TABLET PO SCH (20:14)
[2020-02-04 20:42] LABS: GLUCOMETER DEV NAME(LOC) 3E.I 2; GLUCOSE,POINT OF CARE 101 MG/DL (70-110)
[2020-02-04] MEDS: ZOLPIDEM TARTRATE 10 MG TABLET PO PRN (22:22)
[2020-02-04] MEDS: HALOPERIDOL 5 MG TABLET PO PRN (22:22)
[2020-02-05 05:28] VITALS: BP 100/60
[2020-02-05 05:53] LABS: GLUCOMETER DEV NAME(LOC) 3E.I 2; GLUCOSE,POINT OF CARE 115 MG/DL (70-110)
[2020-02-05] MEDS: MetFORMIN HCL 500 MG TABLET PO SCH ×2 (06:36→16:43)
[2020-02-05] MEDS: LEVOTHYROXINE SODIUM 25 MCG TABLET PO SCH (06:36)
[2020-02-05 09:10] VITALS: BP 121/69
[2020-02-05] MEDS: LITHIUM CARBONATE 600 MG CAPSULE PO SCH ×2 (09:19→16:43)
[2020-02-05] MEDS: GABAPENTIN 300 MG CAPSULE PO SCH ×2 (09:19→16:43)
[2020-02-05] MEDS: CHOLECALCIFEROL (VIT D3) 1,000 UNITS [25 MCG] TABLET PO SCH (09:19)
[2020-02-05] MEDS: LISINOPRIL 10 MG TABLET PO SCH (09:19)
[2020-02-05] MEDS: IPRATROPIUM BROMIDE 0.5 MG/2.5 ML NEB SOLUTION NEB SCH ×4 (10:33→22:46)
[2020-02-05] MEDS: ALBUTEROL SULFATE 2.5 MG/0.5 ML NEB SOLUTION NEB SCH ×4 (10:33→22:46)
[2020-02-05 12:07] LABS: GLUCOMETER DEV NAME(LOC) 3E.I 2; GLUCOSE,POINT OF CARE 88 MG/DL (70-110)
[2020-02-05 16:00] VITALS: BP 118/52
[2020-02-05 17:31] LABS: GLUCOMETER DEV NAME(LOC) 3E.I 2; GLUCOSE,POINT OF CARE 114 MG/DL (70-110)
[2020-02-05] MEDS: ATORVASTATIN CALCIUM 10 MG TABLET PO SCH (20:16)
[2020-02-05] MEDS: LURASIDONE HCL 80 MG TABLET PO SCH (20:16)
[2020-02-05 21:02] LABS: GLUCOMETER DEV NAME(LOC) 3E.I 2; GLUCOSE,POINT OF CARE 100 MG/DL (70-110)
[2020-02-06] VITALS: BP 151/91
[2020-02-06] MEDS: HALOPERIDOL 5 MG TABLET PO PRN ×2 (00:11→20:18)
[2020-02-06 05:45] LABS: GLUCOMETER DEV NAME(LOC) 3E.I 2; GLUCOSE,POINT OF CARE 94 MG/DL (70-110)
[2020-02-06] MEDS: MetFORMIN HCL 500 MG TABLET PO SCH ×2 (06:33→16:52)
[2020-02-06] MEDS: LEVOTHYROXINE SODIUM 25 MCG TABLET PO SCH (06:33)
[2020-02-06] MEDS: IPRATROPIUM BROMIDE 0.5 MG/2.5 ML NEB SOLUTION NEB SCH ×5 (08:01→23:17)
[2020-02-06] MEDS: ALBUTEROL SULFATE 2.5 MG/0.5 ML NEB SOLUTION NEB SCH ×5 (08:01→23:17)
[2020-02-06 09:00] VITALS: BP 115/57
[2020-02-06] MEDS: CHOLECALCIFEROL (VIT D3) 1,000 UNITS [25 MCG] TABLET PO SCH (10:47)
[2020-02-06] MEDS: LITHIUM CARBONATE 600 MG CAPSULE PO SCH ×2 (10:48→16:51)
[2020-02-06] MEDS: GABAPENTIN 300 MG CAPSULE PO SCH ×2 (10:48→16:52)
[2020-02-06] MEDS: LISINOPRIL 10 MG TABLET PO SCH (10:48)
[2020-02-06 11:45] LABS: GLUCOMETER DEV NAME(LOC) 3E.I 2; GLUCOSE,POINT OF CARE 90 MG/DL (70-110)
[2020-02-06 16:00] VITALS: BP 110/65
[2020-02-06 17:06] LABS: GLUCOMETER DEV NAME(LOC) 3E.I 2; GLUCOSE,POINT OF CARE 104 MG/DL (70-110)
[2020-02-06] MEDS: ATORVASTATIN CALCIUM 10 MG TABLET PO SCH (20:17)
[2020-02-06] MEDS: LURASIDONE HCL 80 MG TABLET PO SCH (20:17)
[2020-02-06 21:48] LABS: GLUCOMETER DEV NAME(LOC) 3E.I 2; GLUCOSE,POINT OF CARE 132 MG/DL (70-110)
[2020-02-06] MEDS: ZOLPIDEM TARTRATE 10 MG TABLET PO PRN (22:26)
[2020-02-07 02:45] VITALS: BP 101/50
[2020-02-07 05:45] LABS: GLUCOMETER DEV NAME(LOC) 3E.I 2; GLUCOSE,POINT OF CARE 136 MG/DL (70-110)
[2020-02-07] MEDS: MetFORMIN HCL 500 MG TABLET PO SCH ×2 (07:01→16:55)
[2020-02-07] MEDS: LEVOTHYROXINE SODIUM 25 MCG TABLET PO SCH (07:01)
[2020-02-07] MEDS: INSULIN LISPRO 100 UNITS/ML SQ PRN (07:02)
[2020-02-07 09:00] VITALS: BP 114/69
[2020-02-07] MEDS: ALBUTEROL SULFATE 2.5 MG/0.5 ML NEB SOLUTION NEB SCH ×5 (09:08→22:50)
[2020-02-07] MEDS: IPRATROPIUM BROMIDE 0.5 MG/2.5 ML NEB SOLUTION NEB SCH ×5 (09:08→22:50)
[2020-02-07] MEDS: CHOLECALCIFEROL (VIT D3) 1,000 UNITS [25 MCG] TABLET PO SCH (10:07)
[2020-02-07] MEDS: LITHIUM CARBONATE 600 MG CAPSULE PO SCH ×2 (10:07→16:55)
[2020-02-07] MEDS: LISINOPRIL 10 MG TABLET PO SCH (10:07)
[2020-02-07] MEDS: GABAPENTIN 300 MG CAPSULE PO SCH ×2 (10:07→16:55)
[2020-02-07 12:06] LABS: GLUCOMETER DEV NAME(LOC) 3E.I 2; GLUCOSE,POINT OF CARE 105 MG/DL (70-110)
[2020-02-07 16:33] VITALS: BP 116/79
[2020-02-07 17:10] LABS: GLUCOMETER DEV NAME(LOC) 3E.I 2; GLUCOSE,POINT OF CARE 97 MG/DL (70-110)
[2020-02-07] MEDS: ATORVASTATIN CALCIUM 10 MG TABLET PO SCH (20:12)
[2020-02-07] MEDS: LURASIDONE HCL 80 MG TABLET PO SCH (20:12)
[2020-02-07 20:27] LABS: GLUCOMETER DEV NAME(LOC) 3E.I 2; GLUCOSE,POINT OF CARE 91 MG/DL (70-110)
[2020-02-08 00:15] VITALS: BP 107/53
[2020-02-08] MEDS: ZOLPIDEM TARTRATE 10 MG TABLET PO PRN (00:18)
[2020-02-08 05:24] VITALS: BP 105/57
[2020-02-08] MEDS: IBUPROFEN 600 MG TABLET PO PRN (05:24)
[2020-02-08 05:31] LABS: GLUCOMETER DEV NAME(LOC) 3E.I 2; GLUCOSE,POINT OF CARE 111 MG/DL (70-110)
[2020-02-08] MEDS: MetFORMIN HCL 500 MG TABLET PO SCH (06:39)
[2020-02-08] MEDS: LEVOTHYROXINE SODIUM 25 MCG TABLET PO SCH (06:39)
[2020-02-08] MEDS: ALBUTEROL SULFATE 2.5 MG/0.5 ML NEB SOLUTION NEB SCH ×2 (07:00→11:05)
[2020-02-08] MEDS: IPRATROPIUM BROMIDE 0.5 MG/2.5 ML NEB SOLUTION NEB SCH ×2 (07:00→11:05)
[2020-02-08 09:24] VITALS: BP 147/69
[2020-02-08] MEDS: GABAPENTIN 300 MG CAPSULE PO SCH (09:53)
[2020-02-08] MEDS: LITHIUM CARBONATE 600 MG CAPSULE PO SCH (09:53)
[2020-02-08] MEDS: CHOLECALCIFEROL (VIT D3) 1,000 UNITS [25 MCG] TABLET PO SCH (09:53)
[2020-02-08] MEDS: LISINOPRIL 10 MG TABLET PO SCH (09:53)
[2020-02-08] MEDS ORDERED: ALBU8.5H8 IH (11:16)
[2020-02-08] MEDS ORDERED: IPRAHFA IH (11:17)
[2020-02-08 12:01] LABS: GLUCOMETER DEV NAME(LOC) 3E.I 2; GLUCOSE,POINT OF CARE 103 MG/DL (70-110)
== END 2020-02-08 13:00 | disposition home or self-care (01) | DRG 885 ==
LOC: EMS 19:19 → UNDOADMIN 23:07 → 3EI 23:07
PROVIDERS: ADMIT Psychiatry & Neurology Psychiatry; ATTEND Psychiatry & Neurology Psychiatry
DX: F25.9 Schizoaffective disorder, unspecified (principal); N17.9 Acute kidney failure, unspecified; F31.9 Bipolar disorder, unspecified; F41.9 Anxiety disorder, unspecified; G47.33 Obstructive sleep apnea (adult) (pediatric); I10 Essential (primary) hypertension; J44.9 Chronic obstructive pulmonary disease, unspecified; K59.00 Constipation, unspecified; K70.30 Alcoholic cirrhosis of liver without ascites; T67.5XXA Heat exhaustion, unspecified, initial encounter; E03.9 Hypothyroidism, unspecified; E11.9 Type 2 diabetes mellitus without complications; E66.9 Obesity, unspecified; E78.00 Pure hypercholesterolemia, unspecified; E86.0 Dehydration; E78.5 Hyperlipidemia, unspecified; F17.210 Nicotine dependence, cigarettes, uncomplicated; Z59.0 Homelessness; Z68.37 Body mass index [BMI] 37.0-37.9, adult; Z79.899 Other long term (current) drug therapy; Z79.891 Long term (current) use of opiate analgesic; Z72.89 Other problems related to lifestyle; X30.XXXA Exposure to excessive natural heat, initial encounter
CPT/HCPCS: 87081; 93005; 94640; 94660; G0480

== ENCOUNTER 2020-05-06 16:05 | Emergency (ER) | payer MEDICARE, OTHER ==
[~2020-05-06] VITALS: Ht 175.3 cm; Wt 109.1 kg
[~2020-05-06 16:05] MED LIST changes: +ALBU8.5H8 IH; +DULA0.75 SQ; -INSLAN SQ; +IPRAHFA IH; -OLAN10TA3 PO
[2020-05-06 17:58] LABS: BASOPHILS % (AUTO) 0.5 % (0.0-2.0); EOSINOPHILS % (AUTO) 2.5 % (1.0-6.0); HEMATOCRIT 35.4 % (41-53); LYMPHOCYTES # (AUTO) 1.1 K/uL (1.0-4.8); LYMPHOCYTES % (AUTO) 15.8 % (22.0-44.0); MEAN CORPUSCULAR HEMOGLOBIN 30.1 pg (26.0-34.0); MEAN CORPUSCULAR HGB CONC 33.7 G/dL (31.0-37.0); MEAN CORPUSCULAR VOLUME 89 fL (80-100); MONOCYTES % (AUTO) 14.5 % (2.0-9.0); NEUTROPHILS # (AUTO) 4.6 K/uL (1.8-7.7); NEUTROPHILS % (AUTO) 66.7 % (40.0-70.0); PLATELET COUNT (AUTO) 121 K/uL (150-450); RED BLOOD CELL COUNT(AUTO) 3.97 MIL/uL (4.50-5.90)
[2020-05-06 18:12] LABS: ALANINE AMINOTRANSFERASE 44 U/L (12-78); ALBUMIN 4.1 g/dL (3.4-5.0); ALKALINE PHOSPHATASE 104 U/L (46-116); ANION GAP 8 mmol/L (8-16); ASPARTATE AMINOTRANSFERASE 31 U/L (15-37); BILIRUBIN,TOTAL 0.5 mg/dL (0.1-1.0); CALCIUM, TOTAL 9.4 mg/dL (8.8-10.5); CARBON DIOXIDE 29 mmol/L (22-29); CHLORIDE 105 mmol/L (98-107); CREATININE 0.86 mg/dL (0.60-1.30); GLOMERULAR FILTR. RATE CALC > 60 mL/min (>60); POTASSIUM 3.8 mmol/L (3.5-5.1); SODIUM SERUM 142 mmol/L (136-145); TOTAL PROTEIN, SERUM 8.7 g/dL (6.4-8.2); UREA NITROGEN, BLOOD 14 mg/dL (7-18)
[2020-05-06 18:29] LABS: GLUCOSE,POINT OF CARE 60 MG/DL (70-110)
[2020-05-06 18:44] LABS: GLUCOSE,RANDOM 49 mg/dL (70-110)
[2020-05-06 19:41] LABS: GLUCOSE,POINT OF CARE 91 MG/DL (70-110)
[2020-05-06 22:02] LABS: AMPHET/METH SCREEN,URINE NEGATIVE (NEGATIVE); BARBITURATE SCREEN, URINE NEGATIVE (NEGATIVE); BENZODIAZEPINES SCREEN,URINE NEGATIVE (NEGATIVE); CANNABINOID SCREEN,URINE NEGATIVE (NEGATIVE); COCAINE SCREEN,URINE NEGATIVE (NEGATIVE); METHADONE SCREEN, URINE NEGATIVE (NEGATIVE); OPIATE SCREEN,URINE NEGATIVE (NEGATIVE)
[2020-05-06 22:06] LABS: PHENCYCLIDINE SCREEN,URINE NEGATIVE (NEGATIVE)
[2020-05-07 08:21] LABS: GLUCOSE,POINT OF CARE 99 MG/DL (70-110)
[2020-05-07 09:29] VITALS: BP 136/70
== END 2020-05-07 09:33 | disposition home or self-care (01) ==
LOC: EMS 16:05
DX: F32.9 Major depressive disorder, single episode, unspecified (principal); F41.9 Anxiety disorder, unspecified; J44.9 Chronic obstructive pulmonary disease, unspecified; I10 Essential (primary) hypertension; E11.9 Type 2 diabetes mellitus without complications; E78.00 Pure hypercholesterolemia, unspecified; E03.9 Hypothyroidism, unspecified; F20.9 Schizophrenia, unspecified; E66.8 Other obesity; G47.30 Sleep apnea, unspecified; Z87.891 Personal history of nicotine dependence; Z79.899 Other long term (current) drug therapy
CPT/HCPCS: 36415; 80053; 80307; 82962; 85025; 99285; G0480; 82948

== ENCOUNTER 2020-08-09 17:12 | Emergency (ER) | payer MEDICARE, OTHER ==
[~2020-08-09] VITALS: Ht 172.7 cm; Wt 109.1 kg
[~2020-08-09 17:12] MED LIST changes: -LISI-661 PO; +LISI-893 PO; -LITH600 PO; +LITH600C5 PO
[2020-08-09 18:32] LABS: AMPHET/METH SCREEN,URINE NEGATIVE (NEGATIVE); BARBITURATE SCREEN, URINE NEGATIVE (NEGATIVE); BENZODIAZEPINES SCREEN,URINE NEGATIVE (NEGATIVE); CANNABINOID SCREEN,URINE NEGATIVE (NEGATIVE); COCAINE SCREEN,URINE NEGATIVE (NEGATIVE); METHADONE SCREEN, URINE NEGATIVE (NEGATIVE); OPIATE SCREEN,URINE NEGATIVE (NEGATIVE); PHENCYCLIDINE SCREEN,URINE NEGATIVE (NEGATIVE)
[2020-08-09 19:28] LABS: BASOPHILS % (AUTO) 0.8 % (0.0-2.0); EOSINOPHILS % (AUTO) 3.7 % (1.0-6.0); HEMATOCRIT 29.6 % (41-53); HEMOGLOBIN 9.8 g/dL (13.5-17.5); LYMPHOCYTES # (AUTO) 0.9 K/uL (1.0-4.8); LYMPHOCYTES % (AUTO) 14.6 % (22.0-44.0); MEAN CORPUSCULAR HEMOGLOBIN 29.9 pg (26.0-34.0); MEAN CORPUSCULAR VOLUME 91 fL (80-100); MONOCYTES # (AUTO) 0.8 K/uL (0.1-1.0); MONOCYTES % (AUTO) 12.6 % (2.0-9.0); NEUTROPHILS # (AUTO) 4.3 K/uL (1.8-7.7); NEUTROPHILS % (AUTO) 68.3 % (40.0-70.0); PLATELET COUNT (AUTO) 96 K/uL (150-450); RED BLOOD CELL COUNT(AUTO) 3.26 MIL/uL (4.50-5.90); RED CELL DISTRIBUTION WIDTH 15.9 % (11.5-14.5)
[2020-08-09 19:36] LABS: ANION GAP 8 mmol/L (8-16); CALCIUM, TOTAL 8.3 mg/dL (8.8-10.5); CARBON DIOXIDE 26 mmol/L (22-29); CHLORIDE 100 mmol/L (98-107); GLOMERULAR FILTR. RATE CALC > 60 mL/min (>60); GLUCOSE,RANDOM 178 mg/dL (70-110); POTASSIUM 3.7 mmol/L (3.5-5.1); SODIUM SERUM 134 mmol/L (136-145); UREA NITROGEN, BLOOD 14 mg/dL (7-18)
[2020-08-09 19:43] LABS: LITHIUM 0.87 mmol/L (0.60-1.20)
[2020-08-09 19:51] LABS: ALANINE AMINOTRANSFERASE 44 U/L (12-78); ALBUMIN 3.3 g/dL (3.4-5.0); ALKALINE PHOSPHATASE 76 U/L (46-116); ASPARTATE AMINOTRANSFERASE 22 U/L (15-37); BILIRUBIN,TOTAL 0.4 mg/dL (0.1-1.0); FREE T4 (FREE THYROXINE) 1.28 ng/dL (0.76-1.46); THYROID STIMULATING HORMONE 0.05 uIU/mL (0.36-3.74); TOTAL PROTEIN, SERUM 7.2 g/dL (6.4-8.2)
[2020-08-09 20:55] VITALS: BP 126/66
== END 2020-08-09 21:17 | disposition home or self-care (01) ==
LOC: EMS 17:16
DX: F25.9 Schizoaffective disorder, unspecified (principal); F41.9 Anxiety disorder, unspecified; F31.9 Bipolar disorder, unspecified; J44.9 Chronic obstructive pulmonary disease, unspecified; E11.9 Type 2 diabetes mellitus without complications; E78.00 Pure hypercholesterolemia, unspecified; Z87.891 Personal history of nicotine dependence; Z79.899 Other long term (current) drug therapy; Z79.84 Long term (current) use of oral hypoglycemic drugs
CPT/HCPCS: 36415; 80053; 80178; 80307; 82962; 84439; 84443; 85025; 99284; G0480

== ENCOUNTER 2020-08-26 12:32 | Emergency (ER) | payer MEDICARE, OTHER ==
[~2020-08-26] VITALS: Ht 177.8 cm; Wt 112.7 kg
[~2020-08-26 12:32] MED LIST changes: -CHOL100018 PO; +CHOL100044 PO
[2020-08-26 14:30] VITALS: BP 137/81
[2020-08-26 17:00] LABS: AMPHET/METH SCREEN,URINE NEGATIVE (NEGATIVE); BARBITURATE SCREEN, URINE NEGATIVE (NEGATIVE); BENZODIAZEPINES SCREEN,URINE NEGATIVE (NEGATIVE); CANNABINOID SCREEN,URINE NEGATIVE (NEGATIVE); COCAINE SCREEN,URINE NEGATIVE (NEGATIVE); METHADONE SCREEN, URINE NEGATIVE (NEGATIVE); OPIATE SCREEN,URINE NEGATIVE (NEGATIVE)
[2020-08-26 17:01] LABS: PHENCYCLIDINE SCREEN,URINE NEGATIVE (NEGATIVE)
== END 2020-08-26 14:45 | disposition home or self-care (01) ==
LOC: EMS 12:32
DX: F20.9 Schizophrenia, unspecified (principal); F32.9 Major depressive disorder, single episode, unspecified; I10 Essential (primary) hypertension; E78.00 Pure hypercholesterolemia, unspecified
CPT/HCPCS: 99284

== ENCOUNTER 2020-11-28 23:40 | Emergency (ER) | payer OTHER ==
[~2020-11-28] VITALS: Ht 175.3 cm; Wt 113.6 kg
[~2020-11-28 23:40] MED LIST changes: -ATOR10TA84 PO; -LEVO25TA9 PO; -LISI-893 PO; -METF-960 PO
[2020-11-29 00:18] LABS: BASOPHILS % (AUTO) 0.7 % (0.0-2.0); EOSINOPHILS % (AUTO) 4.7 % (1.0-6.0); HEMOGLOBIN 10.8 g/dL (13.5-17.5); LYMPHOCYTES # (AUTO) 1.1 K/uL (1.0-4.8); LYMPHOCYTES % (AUTO) 19.6 % (22.0-44.0); MEAN CORPUSCULAR HEMOGLOBIN 29.3 pg (26.0-34.0); MEAN CORPUSCULAR HGB CONC 32.6 G/dL (31.0-37.0); MEAN CORPUSCULAR VOLUME 90 fL (80-100); MONOCYTES # (AUTO) 0.5 K/uL (0.1-1.0); MONOCYTES % (AUTO) 9.6 % (2.0-9.0); NEUTROPHILS # (AUTO) 3.7 K/uL (1.8-7.7); NEUTROPHILS % (AUTO) 65.4 % (40.0-70.0); PLATELET COUNT (AUTO) 106 K/uL (150-450); RED BLOOD CELL COUNT(AUTO) 3.68 MIL/uL (4.50-5.90); RED CELL DISTRIBUTION WIDTH 14.3 % (11.5-14.5)
[2020-11-29 00:24] LABS: ANION GAP 7 mmol/L (8-16); CARBON DIOXIDE 27 mmol/L (22-29); CHLORIDE 104 mmol/L (98-107); CREATININE 1.02 mg/dL (0.60-1.30); GLOMERULAR FILTR. RATE CALC > 60 mL/min (>60); GLUCOSE,RANDOM 197 mg/dL (70-110); POTASSIUM 3.7 mmol/L (3.5-5.1); SODIUM SERUM 138 mmol/L (136-145); UREA NITROGEN, BLOOD 12 mg/dL (7-18)
[2020-11-29 00:30] LABS: ALANINE AMINOTRANSFERASE 44 U/L (12-78); ALBUMIN 3.7 g/dL (3.4-5.0); ALKALINE PHOSPHATASE 86 U/L (46-116); ASPARTATE AMINOTRANSFERASE 21 U/L (15-37); BILIRUBIN,TOTAL 0.5 mg/dL (0.1-1.0); LITHIUM 0.25 mmol/L (0.60-1.20); TOTAL PROTEIN, SERUM 7.6 g/dL (6.4-8.2)
[2020-11-29 00:38] LABS: GLUCOSE,POINT OF CARE 174 MG/DL (70-110)
[2020-11-29 04:16] VITALS: BP 144/82
== END 2020-11-29 05:07 | disposition home or self-care (01) ==
LOC: EMS 23:42
DX: F20.0 Paranoid schizophrenia (principal); E11.9 Type 2 diabetes mellitus without complications; F41.9 Anxiety disorder, unspecified; F31.9 Bipolar disorder, unspecified; I10 Essential (primary) hypertension; E03.9 Hypothyroidism, unspecified; F20.9 Schizophrenia, unspecified; Z87.891 Personal history of nicotine dependence; Z79.899 Other long term (current) drug therapy
CPT/HCPCS: 36415; 80053; 80178; 82962; 85025; 99284; G0480

== ENCOUNTER 2020-12-11 17:28 | Emergency (ER) | payer OTHER ==
[~2020-12-11] VITALS: Ht 175.3 cm; Wt 113.6 kg
[2020-12-11] MEDS ORDERED: ARIP15TA27 PO (17:35)
[2020-12-11] MEDS ORDERED: MAGNESIUM CITRATE 300 ML ORAL SOLUTION PO ONE (19:15)
[2020-12-11 19:27] LABS: BASOPHILS % (AUTO) 0.8 % (0.0-2.0); EOSINOPHILS % (AUTO) 1.6 % (1.0-6.0); HEMATOCRIT 29.6 % (41-53); HEMOGLOBIN 9.9 g/dL (13.5-17.5); LYMPHOCYTES # (AUTO) 1.1 K/uL (1.0-4.8); LYMPHOCYTES % (AUTO) 15.7 % (22.0-44.0); MEAN CORPUSCULAR HEMOGLOBIN 29.5 pg (26.0-34.0); MEAN CORPUSCULAR HGB CONC 33.3 G/dL (31.0-37.0); MEAN CORPUSCULAR VOLUME 88 fL (80-100); MONOCYTES # (AUTO) 0.9 K/uL (0.1-1.0); MONOCYTES % (AUTO) 13.1 % (2.0-9.0); NEUTROPHILS # (AUTO) 4.9 K/uL (1.8-7.7); NEUTROPHILS % (AUTO) 68.8 % (40.0-70.0); PLATELET COUNT (AUTO) 111 K/uL (150-450); RED BLOOD CELL COUNT(AUTO) 3.35 MIL/uL (4.50-5.90); RED CELL DISTRIBUTION WIDTH 14.6 % (11.5-14.5)
[2020-12-11 19:42] LABS: ANION GAP 8 mmol/L (8-16); CALCIUM, TOTAL 8.7 mg/dL (8.8-10.5); CARBON DIOXIDE 27 mmol/L (22-29); CHLORIDE 103 mmol/L (98-107); GLOMERULAR FILTR. RATE CALC 31 mL/min (>60); GLUCOSE,RANDOM 205 mg/dL (70-110); POTASSIUM 3.7 mmol/L (3.5-5.1); SODIUM SERUM 138 mmol/L (136-145); UREA NITROGEN, BLOOD 19 mg/dL (7-18)
[2020-12-11 19:43] LABS: LITHIUM 0.36 mmol/L (0.60-1.20)
[2020-12-11 19:47] LABS: ALANINE AMINOTRANSFERASE 49 U/L (12-78); ALBUMIN 3.6 g/dL (3.4-5.0); ALKALINE PHOSPHATASE 87 U/L (46-116); ASPARTATE AMINOTRANSFERASE 56 U/L (15-37); BILIRUBIN,TOTAL 0.8 mg/dL (0.1-1.0); TOTAL PROTEIN, SERUM 7.2 g/dL (6.4-8.2)
[2020-12-11 20:48] VITALS: BP 124/69
== END 2020-12-11 21:01 | disposition home or self-care (01) ==
LOC: EMS 17:28
DX: E86.0 Dehydration (principal); K59.00 Constipation, unspecified; F31.9 Bipolar disorder, unspecified; E11.9 Type 2 diabetes mellitus without complications; E78.00 Pure hypercholesterolemia, unspecified; I10 Essential (primary) hypertension; F20.9 Schizophrenia, unspecified
CPT/HCPCS: 36415; 80053; 80178; 82962; 85025; 99283; G0480

== ENCOUNTER 2021-02-07 13:00 | Inpatient (IN) | payer MEDICARE, MEDICAID ==
[~2021-02-07] VITALS: Ht 175.3 cm; Wt 114.9 kg
[~2021-02-07 13:00] MED LIST changes: -ALBU8.5H8 IH; +ATOR10TA84 PO; -CHOL100044 PO; +CHOL500013 PO; -DULA0.75 SQ; +FERR325T23 PO; +FOLI-130 PO; -IPRAHFA IH; +LEVO100 PO; +LISI-893 PO; +LITH300T PO; -LITH600C5 PO; -LURA40TA2 PO; +LURA80TA2 PO; +METF-960 PO
[2021-02-07 16:01] LABS: BASOPHILS % (AUTO) 0.7 % (0.0-2.0); EOSINOPHILS % (AUTO) 5.8 % (1.0-6.0); HEMOGLOBIN 10.7 g/dL (13.5-17.5); LYMPHOCYTES # (AUTO) 0.8 K/uL (1.0-4.8); LYMPHOCYTES % (AUTO) 16.5 % (22.0-44.0); MEAN CORPUSCULAR HEMOGLOBIN 28.9 pg (26.0-34.0); MEAN CORPUSCULAR HGB CONC 32.4 G/dL (31.0-37.0); MEAN CORPUSCULAR VOLUME 89 fL (80-100); MONOCYTES # (AUTO) 0.6 K/uL (0.1-1.0); MONOCYTES % (AUTO) 12.5 % (2.0-9.0); NEUTROPHILS # (AUTO) 3.2 K/uL (1.8-7.7); NEUTROPHILS % (AUTO) 64.5 % (40.0-70.0); PLATELET COUNT (AUTO) 113 K/uL (150-450); RED BLOOD CELL COUNT(AUTO) 3.69 MIL/uL (4.50-5.90)
[2021-02-07 16:19] LABS: ANION GAP -4 mmol/L (8-16); CALCIUM, TOTAL 8.6 mg/dL (8.8-10.5); CARBON DIOXIDE 27 mmol/L (22-29); CHLORIDE 107 mmol/L (98-107); CREATININE 0.66 mg/dL (0.60-1.30); GLOMERULAR FILTR. RATE CALC > 60 mL/min (>60); GLUCOSE,RANDOM 138 mg/dL (70-110); LITHIUM 0.59 mmol/L (0.60-1.20); POTASSIUM 3.5 mmol/L (3.5-5.1); SODIUM SERUM 130 mmol/L (136-145); UREA NITROGEN, BLOOD 7 mg/dL (7-18)
[2021-02-07 16:24] LABS: ALANINE AMINOTRANSFERASE 46 U/L (12-78); ALBUMIN 3.5 g/dL (3.4-5.0); ALKALINE PHOSPHATASE 79 U/L (46-116); ASPARTATE AMINOTRANSFERASE 22 U/L (15-37); BILIRUBIN,TOTAL 0.4 mg/dL (0.1-1.0); TOTAL PROTEIN, SERUM 7.5 g/dL (6.4-8.2)
[2021-02-07 16:32] LABS: AMPHET/METH SCREEN,URINE NEGATIVE (NEGATIVE); BARBITURATE SCREEN, URINE NEGATIVE (NEGATIVE); BENZODIAZEPINES SCREEN,URINE NEGATIVE (NEGATIVE); CANNABINOID SCREEN,URINE NEGATIVE (NEGATIVE); COCAINE SCREEN,URINE NEGATIVE (NEGATIVE); METHADONE SCREEN, URINE NEGATIVE (NEGATIVE); OPIATE SCREEN,URINE NEGATIVE (NEGATIVE)
[2021-02-07 16:37] LABS: PHENCYCLIDINE SCREEN,URINE NEGATIVE (NEGATIVE)
[2021-02-07] MEDS ORDERED: ACETAMINOPHEN 500 MG TABLET PO PRN (17:30)
[2021-02-07] MEDS ORDERED: ZOLPIDEM TARTRATE 10 MG TABLET PO PRN (17:30)
[2021-02-07] MEDS ORDERED: LORazepam 2 MG TABLET PO PRN (17:30)
[2021-02-07] MEDS ORDERED: HALOPERIDOL 5 MG TABLET PO PRN (17:30)
[2021-02-07 17:33] LABS: COVID AG,FIA SOURCE NASOPHARYNGEAL
[2021-02-07 21:03] VITALS: BP 124/70
[2021-02-07] MEDS: ATORVASTATIN CALCIUM 10 MG TABLET PO SCH (21:47)
[2021-02-08 03:57] VITALS: BP 121/69
[2021-02-08] MEDS: LEVOTHYROXINE SODIUM 100 MCG TABLET PO SCH (06:42)
[2021-02-08] MEDS: FERROUS SULFATE 325 MG EC TABLET PO SCH ×2 (06:42→17:19)
[2021-02-08] MEDS: FOLIC ACID 1 MG TABLET PO SCH (08:26)
[2021-02-08] MEDS: CHOLECALCIFEROL (VIT D3) 5,000 [125 MCG] UNITS CAPSULE PO SCH (08:27)
[2021-02-08] MEDS: LISINOPRIL 10 MG TABLET PO SCH (08:28)
[2021-02-08 08:52] VITALS: BP 120/74
[2021-02-08 16:19] VITALS: BP 150/78
[2021-02-08] MEDS: MetFORMIN HCL 500 MG TABLET PO SCH (17:19)
[2021-02-08] MEDS: ATORVASTATIN CALCIUM 10 MG TABLET PO SCH (20:04)
[2021-02-08] MEDS ORDERED: LOPERAMIDE HCL 2 MG CAPSULE PO PRN (20:15)
[2021-02-08] MEDS ORDERED: ONDANSETRON HCL 4 MG TABLET PO PRN (20:15)
[2021-02-08] MEDS ORDERED: MAG HYDROX/AL HYDROX/SIMETH ES 30 ML SUSPENSION UDCUP PO PRN (20:15)
[2021-02-08] MEDS ORDERED: BENZOCAINE/MENTHOL LOZENGE PO PRN (20:15)
[2021-02-08] MEDS ORDERED: OMEPRAZOLE 20 MG CAPSULE PO PRN (20:15)
[2021-02-08] MEDS ORDERED: ACETAMINOPHEN 325 MG TABLET PO PRN (20:15)
[2021-02-08] MEDS ORDERED: CloNIDine HCL 0.1 MG TABLET PO PRN (20:15)
[2021-02-08] MEDS ORDERED: MAGNESIUM HYDROXIDE SUSPENSION 30 ML UDCUP PO PRN (20:15)
[2021-02-08] MEDS ORDERED: DOCUSATE SODIUM 100 MG CAPSULE PO PRN (20:15)
[2021-02-08] MEDS ORDERED: ALBUTEROL SULFATE HFA 90 MCG/PUFF 8 GM INHALER IH PRN (20:15)
[2021-02-08] MEDS ORDERED: BACITRACIN 28 GM OINTMENT TP PRN (20:15)
[2021-02-08] MEDS ORDERED: IBUPROFEN 600 MG TABLET PO PRN (20:15)
[2021-02-08] MEDS ORDERED: PETROLATUM,WHITE 28 GM JELLY TP PRN (20:15)
[2021-02-08] MEDS: LURASIDONE HCL 80 MG TABLET PO SCH (21:10)
[2021-02-09] MEDS: FERROUS SULFATE 325 MG EC TABLET PO SCH ×2 (06:30→16:20)
[2021-02-09] MEDS: MetFORMIN HCL 500 MG TABLET PO SCH ×2 (06:30→16:21)
[2021-02-09] MEDS: LEVOTHYROXINE SODIUM 100 MCG TABLET PO SCH (06:30)
[2021-02-09 08:18] VITALS: BP 120/68
[2021-02-09] MEDS: LISINOPRIL 10 MG TABLET PO SCH (08:53)
[2021-02-09] MEDS: FOLIC ACID 1 MG TABLET PO SCH (08:53)
[2021-02-09] MEDS: LITHIUM CARBONATE 300 MG CAPSULE PO SCH ×3 (08:54→16:21)
[2021-02-09] MEDS: CHOLECALCIFEROL (VIT D3) 5,000 [125 MCG] UNITS CAPSULE PO SCH (08:55)
[2021-02-09] MEDS: GABAPENTIN 300 MG CAPSULE PO SCH ×2 (08:56→16:21)
[2021-02-09 10:34] LABS: ANION GAP 4 mmol/L (8-16); CALCIUM, TOTAL 8.9 mg/dL (8.8-10.5); CARBON DIOXIDE 30 mmol/L (22-29); CHLORIDE 105 mmol/L (98-107); CREATININE 0.75 mg/dL (0.60-1.30); GLOMERULAR FILTR. RATE CALC > 60 mL/min (>60); GLUCOSE,RANDOM 176 mg/dL (70-110); POTASSIUM 4.2 mmol/L (3.5-5.1); SODIUM SERUM 139 mmol/L (136-145); UREA NITROGEN, BLOOD 9 mg/dL (7-18)
[2021-02-09 17:03] VITALS: BP 140/68
[2021-02-09] MEDS: ATORVASTATIN CALCIUM 10 MG TABLET PO SCH (20:17)
[2021-02-09] MEDS: LURASIDONE HCL 80 MG TABLET PO SCH (20:18)
[2021-02-10 04:06] VITALS: BP 121/71
[2021-02-10] MEDS: LEVOTHYROXINE SODIUM 100 MCG TABLET PO SCH (06:40)
[2021-02-10] MEDS: MetFORMIN HCL 500 MG TABLET PO SCH ×2 (06:42→16:36)
[2021-02-10] MEDS: FERROUS SULFATE 325 MG EC TABLET PO SCH ×2 (06:42→17:12)
[2021-02-10] MEDS: GABAPENTIN 300 MG CAPSULE PO SCH ×2 (08:04→16:37)
[2021-02-10] MEDS: CHOLECALCIFEROL (VIT D3) 5,000 [125 MCG] UNITS CAPSULE PO SCH (08:04)
[2021-02-10] MEDS: LITHIUM CARBONATE 300 MG CAPSULE PO SCH ×3 (08:04→16:36)
[2021-02-10] MEDS: LISINOPRIL 10 MG TABLET PO SCH (08:04)
[2021-02-10] MEDS: FOLIC ACID 1 MG TABLET PO SCH (08:04)
[2021-02-10 08:25] VITALS: BP 106/65
[2021-02-10 16:30] VITALS: BP 129/64
[2021-02-10] MEDS: LURASIDONE HCL 80 MG TABLET PO SCH (20:35)
[2021-02-10] MEDS: ATORVASTATIN CALCIUM 10 MG TABLET PO SCH (20:35)
[2021-02-11] MEDS: FERROUS SULFATE 325 MG EC TABLET PO SCH ×2 (06:30→17:59)
[2021-02-11] MEDS: MetFORMIN HCL 500 MG TABLET PO SCH ×2 (06:31→17:59)
[2021-02-11] MEDS: LEVOTHYROXINE SODIUM 100 MCG TABLET PO SCH (06:31)
[2021-02-11] MEDS: CHOLECALCIFEROL (VIT D3) 5,000 [125 MCG] UNITS CAPSULE PO SCH (08:55)
[2021-02-11] MEDS: FOLIC ACID 1 MG TABLET PO SCH (08:55)
[2021-02-11] MEDS: LISINOPRIL 10 MG TABLET PO SCH (08:55)
[2021-02-11] MEDS: LITHIUM CARBONATE 300 MG CAPSULE PO SCH ×3 (08:55→18:00)
[2021-02-11] MEDS: GABAPENTIN 300 MG CAPSULE PO SCH ×2 (08:55→18:00)
[2021-02-11 10:29] VITALS: BP 139/73
[2021-02-11 16:22] VITALS: BP 121/67
[2021-02-11 16:23] VITALS: BP 121/67
[2021-02-11] MEDS: ATORVASTATIN CALCIUM 10 MG TABLET PO SCH (21:31)
[2021-02-11] MEDS: LURASIDONE HCL 80 MG TABLET PO SCH (21:43)
[2021-02-12] MEDS: LEVOTHYROXINE SODIUM 100 MCG TABLET PO SCH (06:39)
[2021-02-12] MEDS: MetFORMIN HCL 500 MG TABLET PO SCH ×2 (06:44→17:21)
[2021-02-12] MEDS: FERROUS SULFATE 325 MG EC TABLET PO SCH ×2 (06:44→17:22)
[2021-02-12 08:30] VITALS: BP 121/68
[2021-02-12] MEDS: LITHIUM CARBONATE 300 MG CAPSULE PO SCH ×3 (09:18→17:21)
[2021-02-12] MEDS: LISINOPRIL 10 MG TABLET PO SCH (09:18)
[2021-02-12] MEDS: GABAPENTIN 300 MG CAPSULE PO SCH ×2 (09:18→17:22)
[2021-02-12] MEDS: CHOLECALCIFEROL (VIT D3) 5,000 [125 MCG] UNITS CAPSULE PO SCH (09:19)
[2021-02-12] MEDS: FOLIC ACID 1 MG TABLET PO SCH (09:19)
[2021-02-12 16:00] VITALS: BP 141/78
[2021-02-12] MEDS: LURASIDONE HCL 80 MG TABLET PO SCH (21:19)
[2021-02-12] MEDS: ATORVASTATIN CALCIUM 10 MG TABLET PO SCH (21:20)
[2021-02-13 03:51] VITALS: BP 120/71
[2021-02-13] MEDS: FERROUS SULFATE 325 MG EC TABLET PO SCH (06:31)
[2021-02-13] MEDS: LEVOTHYROXINE SODIUM 100 MCG TABLET PO SCH (06:31)
[2021-02-13] MEDS: MetFORMIN HCL 500 MG TABLET PO SCH (06:32)
[2021-02-13] MEDS ORDERED: ARIPiprazole 15 MG TABLET PO SCH (09:00)
[2021-02-13] MEDS: LISINOPRIL 10 MG TABLET PO SCH (09:29)
[2021-02-13] MEDS: LITHIUM CARBONATE 300 MG CAPSULE PO SCH ×2 (09:29→12:03)
[2021-02-13] MEDS: FOLIC ACID 1 MG TABLET PO SCH (09:29)
[2021-02-13] MEDS: GABAPENTIN 300 MG CAPSULE PO SCH (09:29)
[2021-02-13 10:19] VITALS: BP 126/76
[2021-02-13] MEDS: CHOLECALCIFEROL (VIT D3) 5,000 [125 MCG] UNITS CAPSULE PO SCH (12:03)
[2021-02-13] MEDS ORDERED: ARIP15TA27 PO (12:59)
== END 2021-02-13 14:50 | disposition home or self-care (01) | DRG 885 ==
LOC: EMS 13:06 → 3EI 19:00
PROVIDERS: ADMIT Psychiatry & Neurology Psychiatry; ATTEND Psychiatry & Neurology Psychiatry
DX: F25.9 Schizoaffective disorder, unspecified (principal); E03.9 Hypothyroidism, unspecified; E11.9 Type 2 diabetes mellitus without complications; E78.00 Pure hypercholesterolemia, unspecified; F41.9 Anxiety disorder, unspecified; I10 Essential (primary) hypertension; J44.9 Chronic obstructive pulmonary disease, unspecified; F32.9 Major depressive disorder, single episode, unspecified; E66.9 Obesity, unspecified; K74.60 Unspecified cirrhosis of liver; G47.33 Obstructive sleep apnea (adult) (pediatric); K59.00 Constipation, unspecified; Z59.0 Homelessness; Z20.822 Contact with and (suspected) exposure to COVID-19
CPT/HCPCS: 80048; 80053; 80178; 85025; 87081; 94660; 99285; G0480

== ENCOUNTER 2021-05-06 17:07 | Emergency (ER) | payer MEDICARE, OTHER, MEDICAID ==
[~2021-05-06] VITALS: Ht 172.7 cm; Wt 115.9 kg
[~2021-05-06 17:07] MED LIST changes: +ARIP15TA27 PO; +METF-1211 PO; -METF-960 PO
[2021-05-06 18:02] LABS: BASOPHILS % (AUTO) 0.6 % (0.0-2.0); EOSINOPHILS % (AUTO) 3.5 % (1.0-6.0); HEMATOCRIT 37.3 % (41-53); HEMOGLOBIN 12.4 g/dL (13.5-17.5); LYMPHOCYTES # (AUTO) 0.9 K/uL (1.0-4.8); LYMPHOCYTES % (AUTO) 14.3 % (22.0-44.0); MEAN CORPUSCULAR HGB CONC 33.3 G/dL (31.0-37.0); MEAN CORPUSCULAR VOLUME 93 fL (80-100); MONOCYTES # (AUTO) 0.7 K/uL (0.1-1.0); MONOCYTES % (AUTO) 11.2 % (2.0-9.0); NEUTROPHILS # (AUTO) 4.4 K/uL (1.8-7.7); NEUTROPHILS % (AUTO) 70.4 % (40.0-70.0); PLATELET COUNT (AUTO) 123 K/uL (150-450); RED CELL DISTRIBUTION WIDTH 14.6 % (11.5-14.5)
[2021-05-06 18:11] LABS: ANION GAP 8 mmol/L (8-16); CALCIUM, TOTAL 8.9 mg/dL (8.8-10.5); CARBON DIOXIDE 30 mmol/L (22-29); CHLORIDE 104 mmol/L (98-107); CREATININE 0.91 mg/dL (0.60-1.30); GLOMERULAR FILTR. RATE CALC > 60 mL/min (>60); GLUCOSE,RANDOM 197 mg/dL (70-110); POTASSIUM 3.8 mmol/L (3.5-5.1); SODIUM SERUM 142 mmol/L (136-145); UREA NITROGEN, BLOOD 10 mg/dL (7-18)
[2021-05-06 18:16] LABS: ALANINE AMINOTRANSFERASE 68 U/L (12-78); ALBUMIN 3.6 g/dL (3.4-5.0); ALKALINE PHOSPHATASE 99 U/L (46-116); ASPARTATE AMINOTRANSFERASE 41 U/L (15-37); BILIRUBIN,TOTAL 0.5 mg/dL (0.1-1.0); TOTAL PROTEIN, SERUM 8.2 g/dL (6.4-8.2)
[2021-05-06 20:11] VITALS: BP 119/68
[2021-05-06 20:17] LABS: COVID AG,FIA SOURCE NASAL SWAB
== END 2021-05-06 21:02 | disposition home or self-care (01) ==
LOC: EMS 17:10
DX: F25.9 Schizoaffective disorder, unspecified (principal); F32.9 Major depressive disorder, single episode, unspecified; R45.851 Suicidal ideations; I10 Essential (primary) hypertension; E03.9 Hypothyroidism, unspecified; E11.9 Type 2 diabetes mellitus without complications; E78.00 Pure hypercholesterolemia, unspecified; F41.9 Anxiety disorder, unspecified; J44.9 Chronic obstructive pulmonary disease, unspecified; Z79.84 Long term (current) use of oral hypoglycemic drugs; Z79.899 Other long term (current) drug therapy; Z20.822 Contact with and (suspected) exposure to COVID-19
CPT/HCPCS: 80053; 85025; 87426; 99285; G0480

== ENCOUNTER 2021-05-16 15:09 | Emergency (ER) | payer OTHER ==
[~2021-05-16] VITALS: Ht 172.7 cm; Wt 117.3 kg
[2021-05-16] MEDS ORDERED: HALOPERIDOL 5 MG TABLET PO ONE (15:45)
[2021-05-16] MEDS ORDERED: ChlorproMAZINE HCL 100 MG TABLET PO ONE (15:45)
[2021-05-16] MEDS ORDERED: MULT-413 PO (17:19)
[2021-05-16] MEDS ORDERED: FERR325T23 (17:19)
[2021-05-16] MEDS ORDERED: TRAZ-252 PO (17:19)
[2021-05-16 17:25] LABS: BASOPHILS % (AUTO) 0.7 % (0.0-2.0); EOSINOPHILS % (AUTO) 4.6 % (1.0-6.0); HEMATOCRIT 35.1 % (41-53); HEMOGLOBIN 11.9 g/dL (13.5-17.5); LYMPHOCYTES # (AUTO) 1.1 K/uL (1.0-4.8); MEAN CORPUSCULAR HEMOGLOBIN 31.3 pg (26.0-34.0); MEAN CORPUSCULAR HGB CONC 33.9 G/dL (31.0-37.0); MEAN CORPUSCULAR VOLUME 93 fL (80-100); MONOCYTES # (AUTO) 0.6 K/uL (0.1-1.0); MONOCYTES % (AUTO) 11.3 % (2.0-9.0); NEUTROPHILS # (AUTO) 3.5 K/uL (1.8-7.7); NEUTROPHILS % (AUTO) 63.4 % (40.0-70.0); PLATELET COUNT (AUTO) 125 K/uL (150-450); RED CELL DISTRIBUTION WIDTH 14.5 % (11.5-14.5)
[2021-05-16 17:31] LABS: AMPHET/METH SCREEN,URINE NEGATIVE (NEGATIVE); BARBITURATE SCREEN, URINE NEGATIVE (NEGATIVE); BENZODIAZEPINES SCREEN,URINE NEGATIVE (NEGATIVE); CANNABINOID SCREEN,URINE NEGATIVE (NEGATIVE); COCAINE SCREEN,URINE NEGATIVE (NEGATIVE); METHADONE SCREEN, URINE NEGATIVE (NEGATIVE); OPIATE SCREEN,URINE NEGATIVE (NEGATIVE)
[2021-05-16 17:32] LABS: PHENCYCLIDINE SCREEN,URINE NEGATIVE (NEGATIVE)
[2021-05-16 17:32] LABS: ANION GAP 10 mmol/L (8-16); CALCIUM, TOTAL 9.4 mg/dL (8.8-10.5); CARBON DIOXIDE 27 mmol/L (22-29); CHLORIDE 103 mmol/L (98-107); CREATININE 0.69 mg/dL (0.60-1.30); GLOMERULAR FILTR. RATE CALC > 60 mL/min (>60); GLUCOSE,RANDOM 134 mg/dL (70-110); POTASSIUM 3.4 mmol/L (3.5-5.1); SODIUM SERUM 140 mmol/L (136-145); UREA NITROGEN, BLOOD 8 mg/dL (7-18)
[2021-05-16 17:39] LABS: ALANINE AMINOTRANSFERASE 55 U/L (12-78); ALBUMIN 3.8 g/dL (3.4-5.0); ALKALINE PHOSPHATASE 87 U/L (46-116); ASPARTATE AMINOTRANSFERASE 31 U/L (15-37); BILIRUBIN,TOTAL 0.7 mg/dL (0.1-1.0); TOTAL PROTEIN, SERUM 8.4 g/dL (6.4-8.2)
[2021-05-16 18:25] LABS: COVID AG,FIA SOURCE NASOPHARYNGEAL
[2021-05-16] MEDS ORDERED: METF-911 PO (19:12)
[2021-05-16] MEDS ORDERED: PANT40TA54 PO (19:12)
[2021-05-16] MEDS ORDERED: LISI-894 PO (19:12)
[2021-05-16] MEDS ORDERED: DiphenhydrAMINE HCL 50 MG/ML VIAL IM ONE (19:15)
[2021-05-16] MEDS ORDERED: LORazepam 2 MG/ML VIAL IM ONE (19:15)
[2021-05-16] MEDS ORDERED: HALOPERIDOL LACTATE 5 MG/ML VIAL IM ONE (19:15)
[2021-05-16] MEDS ORDERED: POTASSIUM CHLORIDE 10% 40 MEQ/30 ML LIQUID UDCUP PO ONE (19:15)
[2021-05-16 20:54] VITALS: BP 144/80
== END 2021-05-16 21:12 | disposition home or self-care (01) ==
LOC: EMS 15:13
DX: F20.0 Paranoid schizophrenia (principal); F10.20 Alcohol dependence, uncomplicated; F31.9 Bipolar disorder, unspecified; J44.9 Chronic obstructive pulmonary disease, unspecified; E78.00 Pure hypercholesterolemia, unspecified; I10 Essential (primary) hypertension; E03.9 Hypothyroidism, unspecified; K74.60 Unspecified cirrhosis of liver; G47.30 Sleep apnea, unspecified; Z20.822 Contact with and (suspected) exposure to COVID-19
CPT/HCPCS: 36415; 80053; 80178; 80307; 85025; 87426; 96372; 99284; G0480; J1200; J1630; J2060

== ENCOUNTER 2021-05-25 23:06 | Emergency (ER) | payer OTHER ==
[~2021-05-25] VITALS: Ht 185.4 cm; Wt 120.8 kg
[~2021-05-25 23:06] MED LIST changes: -LISI-893 PO; +LISI-894 PO; -METF-1211 PO; +METF-911 PO; +MULT-413 PO; +PANT40TA54 PO; +TRAZ-252 PO
[2021-05-25 23:32] LABS: GLUCOMETER DEV NAME(LOC) ERT.5; GLUCOSE,POINT OF CARE 182 MG/DL (70-110)
[2021-05-25] MEDS ORDERED: SODIUM CHLORIDE 0.9% 2,000 ML IV ONE (23:45)
[2021-05-26 00:41] LABS: CALCIUM, TOTAL 8.8 mg/dL (8.8-10.5); CREATININE 1.71 mg/dL (0.60-1.30); POTASSIUM 4.3 mmol/L (3.5-5.1)
[2021-05-26 00:52] LABS: BASOPHILS % (AUTO) 0.6 % (0.0-2.0); EOSINOPHILS % (AUTO) 2.6 % (1.0-6.0); HEMATOCRIT 34.8 % (41-53); HEMOGLOBIN 11.4 g/dL (13.5-17.5); LYMPHOCYTES # (AUTO) 0.7 K/uL (1.0-4.8); LYMPHOCYTES % (AUTO) 9.7 % (22.0-44.0); MEAN CORPUSCULAR HEMOGLOBIN 31.4 pg (26.0-34.0); MEAN CORPUSCULAR HGB CONC 32.7 G/dL (31.0-37.0); MEAN CORPUSCULAR VOLUME 96 fL (80-100); MONOCYTES # (AUTO) 0.9 K/uL (0.1-1.0); MONOCYTES % (AUTO) 12.1 % (2.0-9.0); NEUTROPHILS # (AUTO) 5.4 K/uL (1.8-7.7); PLATELET COUNT (AUTO) 117 K/uL (150-450); RED BLOOD CELL COUNT(AUTO) 3.63 MIL/uL (4.50-5.90); RED CELL DISTRIBUTION WIDTH 14.8 % (11.5-14.5)
[2021-05-26 01:05] LABS: ALBUMIN 3.6 g/dL (3.4-5.0); BILIRUBIN,TOTAL 0.4 mg/dL (0.1-1.0); TOTAL PROTEIN, SERUM 7.8 g/dL (6.4-8.2)
[2021-05-26 01:11] LABS: D-DIMER 0.58 mg/L FEU (0.00-0.50)
[2021-05-26 02:14] LABS: COVID AG,FIA SOURCE NASOPHARYNGEAL
[2021-05-26 05:39] LABS: LACTIC ACID 3.2 mmol/L (0.4-2.0)
[2021-05-26] MEDS ORDERED: ACETAMINOPHEN 325 MG TABLET PO PRN ×2 (06:00→08:00)
[2021-05-26 07:16] LABS: APPEARANCE,URINE CLEAR (CLEAR); BILIRUBIN,URINE NEGATIVE (NEGATIVE); GLUCOSE, URINE (UA) NEGATIVE (NEGATIVE); KETONES,URINE NEGATIVE (NEGATIVE); LEUKOCYTE ESTERASE ,URINE NEGATIVE (NEGATIVE); NITRATE,URINE NEGATIVE (NEGATIVE); OCCULT BLOOD,URINE NEGATIVE (NEGATIVE); PH,URINE 6.5 (5.0-8.0); PROTEIN,URINE POS 1+ (NEGATIVE); UROBILINOGEN,URINE 0.2 mg/dL (<=1.0)
[2021-05-26 07:21] LABS: AMPHET/METH SCREEN,URINE NEGATIVE (NEGATIVE); BARBITURATE SCREEN, URINE NEGATIVE (NEGATIVE); BENZODIAZEPINES SCREEN,URINE NEGATIVE (NEGATIVE); CANNABINOID SCREEN,URINE NEGATIVE (NEGATIVE); COCAINE SCREEN,URINE NEGATIVE (NEGATIVE); METHADONE SCREEN, URINE NEGATIVE (NEGATIVE); OPIATE SCREEN,URINE NEGATIVE (NEGATIVE)
[2021-05-26 07:23] LABS: PHENCYCLIDINE SCREEN,URINE NEGATIVE (NEGATIVE)
[2021-05-26 07:26] LABS: BACTERIA,URINE None Seen /HPF (None Seen); RBC,URINE None Seen /HPF (0-2); SQUAMOUS EPITHELIAL CELL,UR Few /LPF (None Seen); WBC,URINE 0-2 /HPF (0-5)
[2021-05-26] MEDS ORDERED: INSULIN LISPRO 100 UNITS/ML SQ PRN (08:00)
[2021-05-26] MEDS ORDERED: SODIUM CHLORIDE 0.9% 1,000 ML IV ONE (08:00)
[2021-05-26] MEDS ORDERED: DEXTROSE 50%-WATER 25 GM/50 ML SYRINGE IVP PRN (08:00)
[2021-05-26] MEDS ORDERED: ONDANSETRON HCL 4 MG/2 ML VIAL IVP PRN (08:00)
[2021-05-26] MEDS ORDERED: IPRATROPIUM BROMIDE 0.5 MG/2.5 ML NEB SOLUTION NEB PRN (08:00)
[2021-05-26] MEDS ORDERED: HEPARIN SODIUM,PORCINE 5,000 UNITS/ML VIAL SQ SCH (08:00)
[2021-05-26 08:32] LABS: CALCIUM, TOTAL 8.3 mg/dL (8.8-10.5); CREATININE 1.39 mg/dL (0.60-1.30); POTASSIUM 5.3 mmol/L (3.5-5.1)
[2021-05-26 08:34] LABS: LITHIUM 0.95 mmol/L (0.60-1.20)
[2021-05-26] MEDS ORDERED: DOCUSATE SODIUM 100 MG CAPSULE PO SCH (09:00)
[2021-05-26] MEDS ORDERED: FAMOTIDINE 20 MG TABLET PO SCH (09:00)
[2021-05-26] MEDS ORDERED: ASPIRIN 81 MG CHEWABLE TABLET PO SCH (09:00)
[2021-05-26 09:33] VITALS: BP 95/44
== END 2021-05-26 09:56 | disposition admitted as inpatient to this hospital (09) ==
LOC: EMS 23:12
DX: N17.9 Acute kidney failure, unspecified (principal); E87.2 Acidosis; E72.20 Disorder of urea cycle metabolism, unspecified; I95.9 Hypotension, unspecified; F31.9 Bipolar disorder, unspecified; I10 Essential (primary) hypertension; J44.9 Chronic obstructive pulmonary disease, unspecified; E78.00 Pure hypercholesterolemia, unspecified; Z79.84 Long term (current) use of oral hypoglycemic drugs; Z79.899 Other long term (current) drug therapy; Z20.822 Contact with and (suspected) exposure to COVID-19
CPT/HCPCS: 36415; 70450; 71045; 71275; 72131; 74175; 80048; 80053; 80178; 80307; 81001; 82140; 82550; 82962; 83605; 83880; 84484; 85025; 85379; 85610; 85730; 86850; 86900; 86901; 87040; 87426; 93005; 94660; 96360; 96361; 99291; G0480; J7030; J7050; Q9967

== ENCOUNTER 2021-06-14 00:09 | Emergency (ER) | payer OTHER ==
[~2021-06-14] VITALS: Ht 172.7 cm; Wt 120.0 kg
[2021-06-14 01:17] LABS: BASOPHILS % (AUTO) 0.9 % (0.0-2.0); EOSINOPHILS % (AUTO) 4.2 % (1.0-6.0); HEMOGLOBIN 11.9 g/dL (13.5-17.5); LYMPHOCYTES # (AUTO) 0.8 K/uL (1.0-4.8); LYMPHOCYTES % (AUTO) 13.5 % (22.0-44.0); MEAN CORPUSCULAR HEMOGLOBIN 31.5 pg (26.0-34.0); MEAN CORPUSCULAR HGB CONC 33.8 G/dL (31.0-37.0); MEAN CORPUSCULAR VOLUME 93 fL (80-100); MONOCYTES # (AUTO) 0.6 K/uL (0.1-1.0); MONOCYTES % (AUTO) 11.6 % (2.0-9.0); NEUTROPHILS # (AUTO) 3.9 K/uL (1.8-7.7); NEUTROPHILS % (AUTO) 69.8 % (40.0-70.0); PLATELET COUNT (AUTO) 129 K/uL (150-450); RED BLOOD CELL COUNT(AUTO) 3.76 MIL/uL (4.50-5.90); RED CELL DISTRIBUTION WIDTH 14.1 % (11.5-14.5)
[2021-06-14 01:24] LABS: ANION GAP 4 mmol/L (8-16); CARBON DIOXIDE 31 mmol/L (22-29); CHLORIDE 104 mmol/L (98-107); CREATININE 0.79 mg/dL (0.60-1.30); GLOMERULAR FILTR. RATE CALC > 60 mL/min (>60); GLUCOSE,RANDOM 145 mg/dL (70-110); POTASSIUM 4.4 mmol/L (3.5-5.1); SODIUM SERUM 139 mmol/L (136-145); UREA NITROGEN, BLOOD 11 mg/dL (7-18)
[2021-06-14 01:30] LABS: ALANINE AMINOTRANSFERASE 34 U/L (12-78); ALBUMIN 3.5 g/dL (3.4-5.0); ALKALINE PHOSPHATASE 90 U/L (46-116); ASPARTATE AMINOTRANSFERASE 18 U/L (15-37); BILIRUBIN,TOTAL 0.5 mg/dL (0.1-1.0); TOTAL PROTEIN, SERUM 8.1 g/dL (6.4-8.2)
[2021-06-14 01:31] LABS: GLUCOSE,POINT OF CARE 151 MG/DL (70-110)
[2021-06-14 02:03] LABS: AMPHET/METH SCREEN,URINE NEGATIVE (NEGATIVE); BARBITURATE SCREEN, URINE NEGATIVE (NEGATIVE); BENZODIAZEPINES SCREEN,URINE NEGATIVE (NEGATIVE); CANNABINOID SCREEN,URINE NEGATIVE (NEGATIVE); COCAINE SCREEN,URINE NEGATIVE (NEGATIVE); METHADONE SCREEN, URINE NEGATIVE (NEGATIVE); OPIATE SCREEN,URINE NEGATIVE (NEGATIVE)
[2021-06-14 02:04] LABS: PHENCYCLIDINE SCREEN,URINE NEGATIVE (NEGATIVE)
[2021-06-14 04:07] LABS: COVID AG,FIA SOURCE NASOPHARYNGEAL
[2021-06-14] MEDS: FLUTICASONE/VILANTEROL 200-25 MCG/INH INHALER [14] IH ONE (06:08)
[2021-06-14 15:16] VITALS: BP 118/68
== END 2021-06-14 15:19 | disposition short-term general hospital (02) ==
LOC: EMS 00:11
DX: F32.9 Major depressive disorder, single episode, unspecified (principal); R45.851 Suicidal ideations; R45.850 Homicidal ideations; F20.9 Schizophrenia, unspecified; F41.9 Anxiety disorder, unspecified; E11.9 Type 2 diabetes mellitus without complications; E78.00 Pure hypercholesterolemia, unspecified; E03.9 Hypothyroidism, unspecified; Z87.891 Personal history of nicotine dependence; Z79.84 Long term (current) use of oral hypoglycemic drugs; Z79.899 Other long term (current) drug therapy; Z20.822 Contact with and (suspected) exposure to COVID-19
CPT/HCPCS: 36415; 80053; 80178; 80307; 82962; 85025; 87426; 99285; G0480; Q9967

== ENCOUNTER 2021-07-19 12:40 | Inpatient (IN) | payer MEDICARE, MEDICAID ==
[~2021-07-19] VITALS: Ht 177.8 cm; Wt 112.9 kg
[2021-07-19 13:48] LABS: BASOPHILS % (AUTO) 0.3 % (0.0-2.0); EOSINOPHILS % (AUTO) 3.3 % (1.0-6.0); HEMOGLOBIN 12.9 g/dL (13.5-17.5); LYMPHOCYTES # (AUTO) 0.5 K/uL (1.0-4.8); LYMPHOCYTES % (AUTO) 10.4 % (22.0-44.0); MEAN CORPUSCULAR HEMOGLOBIN 30.6 pg (26.0-34.0); MEAN CORPUSCULAR HGB CONC 33.9 G/dL (31.0-37.0); MEAN CORPUSCULAR VOLUME 90 fL (80-100); MONOCYTES # (AUTO) 0.6 K/uL (0.1-1.0); MONOCYTES % (AUTO) 12.7 % (2.0-9.0); NEUTROPHILS # (AUTO) 3.5 K/uL (1.8-7.7); NEUTROPHILS % (AUTO) 73.3 % (40.0-70.0); PLATELET COUNT (AUTO) 103 K/uL (150-450); RED CELL DISTRIBUTION WIDTH 13.7 % (11.5-14.5)
[2021-07-19 13:56] LABS: LITHIUM 0.32 mmol/L (0.60-1.20)
[2021-07-19 13:57] LABS: AMPHET/METH SCREEN,URINE NEGATIVE (NEGATIVE); BARBITURATE SCREEN, URINE NEGATIVE (NEGATIVE); BENZODIAZEPINES SCREEN,URINE NEGATIVE (NEGATIVE); CANNABINOID SCREEN,URINE NEGATIVE (NEGATIVE); COCAINE SCREEN,URINE NEGATIVE (NEGATIVE); METHADONE SCREEN, URINE NEGATIVE (NEGATIVE); OPIATE SCREEN,URINE NEGATIVE (NEGATIVE)
[2021-07-19 14:03] LABS: COVID AG,FIA SOURCE NASAL SWAB
[2021-07-19 14:09] LABS: PHENCYCLIDINE SCREEN,URINE NEGATIVE (NEGATIVE)
[2021-07-19 14:19] LABS: ANION GAP 9 mmol/L (8-16); CALCIUM, TOTAL 8.8 mg/dL (8.8-10.5); CARBON DIOXIDE 27 mmol/L (22-29); CHLORIDE 102 mmol/L (98-107); CREATININE 0.83 mg/dL (0.60-1.30); GLOMERULAR FILTR. RATE CALC > 60 mL/min (>60); GLUCOSE,RANDOM 267 mg/dL (70-110); POTASSIUM 4.1 mmol/L (3.5-5.1); SODIUM SERUM 138 mmol/L (136-145); UREA NITROGEN, BLOOD 10 mg/dL (7-18)
[2021-07-19 14:26] LABS: ALANINE AMINOTRANSFERASE 33 U/L (12-78); ALBUMIN 3.5 g/dL (3.4-5.0); ALKALINE PHOSPHATASE 100 U/L (46-116); ASPARTATE AMINOTRANSFERASE 17 U/L (15-37); BILIRUBIN,TOTAL 0.2 mg/dL (0.1-1.0); TOTAL PROTEIN, SERUM 8.1 g/dL (6.4-8.2)
[2021-07-19] MEDS ORDERED: LORazepam 2 MG TABLET PO PRN (16:15)
[2021-07-19 18:10] VITALS: BP 118/78
[2021-07-20 01:00] VITALS: BP 114/60
[2021-07-20] MEDS ORDERED: IBUPROFEN 600 MG TABLET PO PRN (06:00)
[2021-07-20] MEDS ORDERED: MAGNESIUM HYDROXIDE SUSPENSION 30 ML UDCUP PO PRN (06:00)
[2021-07-20] MEDS ORDERED: OMEPRAZOLE 20 MG CAPSULE PO PRN (06:00)
[2021-07-20] MEDS ORDERED: ONDANSETRON HCL 4 MG TABLET PO PRN (06:00)
[2021-07-20] MEDS ORDERED: BENZOCAINE/MENTHOL LOZENGE PO PRN (06:00)
[2021-07-20] MEDS ORDERED: DOCUSATE SODIUM 100 MG CAPSULE PO PRN (06:00)
[2021-07-20] MEDS ORDERED: ALBUTEROL SULFATE HFA 90 MCG/PUFF 8 GM INHALER IH PRN (06:00)
[2021-07-20] MEDS ORDERED: CloNIDine HCL 0.1 MG TABLET PO PRN (06:00)
[2021-07-20] MEDS ORDERED: BACITRACIN 28 GM OINTMENT TP PRN (06:00)
[2021-07-20] MEDS ORDERED: PETROLATUM,WHITE 28 GM JELLY TP PRN (06:00)
[2021-07-20] MEDS ORDERED: MAG HYDROX/AL HYDROX/SIMETH ES 30 ML SUSPENSION UDCUP PO PRN (06:00)
[2021-07-20] MEDS ORDERED: LOPERAMIDE HCL 2 MG CAPSULE PO PRN (06:00)
[2021-07-20] MEDS ORDERED: ACETAMINOPHEN 325 MG TABLET PO PRN (06:00)
[2021-07-20 06:11] LABS: GLUCOMETER DEV NAME(LOC) 3EX.; GLUCOSE,POINT OF CARE 204 MG/DL (70-110)
[2021-07-20] MEDS: FERROUS SULFATE 325 MG EC TABLET PO SCH (06:57)
[2021-07-20] MEDS: MetFORMIN HCL 500 MG TABLET PO SCH ×2 (06:57→16:44)
[2021-07-20] MEDS: MULTIVITAMINS WITH MINERALS, THERAPEUTIC TABLET PO SCH (08:25)
[2021-07-20] MEDS: LEVOTHYROXINE SODIUM 100 MCG TABLET PO SCH (08:28)
[2021-07-20] MEDS: PANTOPRAZOLE SODIUM 40 MG DR TABLET PO SCH (08:28)
[2021-07-20] MEDS: LISINOPRIL 20 MG TABLET PO SCH (08:30)
[2021-07-20] MEDS: FOLIC ACID 1 MG TABLET PO SCH (08:31)
[2021-07-20] MEDS: CHOLECALCIFEROL (VIT D3) 5,000 [125 MCG] UNITS CAPSULE PO SCH (10:21)
[2021-07-20 12:20] VITALS: BP 139/89
[2021-07-20 16:43] VITALS: BP 173/102
[2021-07-20] MEDS: LURASIDONE HCL 80 MG TABLET PO SCH (16:44)
[2021-07-20 20:30] VITALS: BP 149/97
[2021-07-20] MEDS: GABAPENTIN 300 MG CAPSULE PO SCH (20:32)
[2021-07-20] MEDS: ATORVASTATIN CALCIUM 10 MG TABLET PO SCH (20:33)
[2021-07-20] MEDS: LITHIUM CARBONATE 300 MG CAPSULE PO SCH (20:33)
[2021-07-20] MEDS: ZOLPIDEM TARTRATE 10 MG TABLET PO PRN (20:33)
[2021-07-21] MEDS: LEVOTHYROXINE SODIUM 100 MCG TABLET PO SCH (06:46)
[2021-07-21] MEDS: MetFORMIN HCL 500 MG TABLET PO SCH ×2 (06:47→16:58)
[2021-07-21] MEDS: FERROUS SULFATE 325 MG EC TABLET PO SCH (06:49)
[2021-07-21] MEDS: MULTIVITAMINS WITH MINERALS, THERAPEUTIC TABLET PO SCH (09:07)
[2021-07-21] MEDS: LISINOPRIL 20 MG TABLET PO SCH (09:08)
[2021-07-21] MEDS: FOLIC ACID 1 MG TABLET PO SCH (09:08)
[2021-07-21] MEDS: CHOLECALCIFEROL (VIT D3) 5,000 [125 MCG] UNITS CAPSULE PO SCH (09:09)
[2021-07-21] MEDS: PANTOPRAZOLE SODIUM 40 MG DR TABLET PO SCH (09:09)
[2021-07-21 09:44] VITALS: BP 116/67
[2021-07-21 16:00] VITALS: BP 123/65
[2021-07-21] MEDS: LURASIDONE HCL 80 MG TABLET PO SCH (16:58)
[2021-07-21] MEDS: HALOPERIDOL 5 MG TABLET PO PRN (16:58)
[2021-07-21] MEDS: GABAPENTIN 300 MG CAPSULE PO SCH (20:35)
[2021-07-21] MEDS: LITHIUM CARBONATE 300 MG CAPSULE PO SCH (20:35)
[2021-07-21] MEDS: ATORVASTATIN CALCIUM 10 MG TABLET PO SCH (20:35)
[2021-07-21] MEDS: ZOLPIDEM TARTRATE 10 MG TABLET PO PRN (21:00)
[2021-07-22] MEDS: FERROUS SULFATE 325 MG EC TABLET PO SCH (06:37)
[2021-07-22] MEDS: LEVOTHYROXINE SODIUM 100 MCG TABLET PO SCH (06:37)
[2021-07-22] MEDS: MetFORMIN HCL 500 MG TABLET PO SCH ×2 (06:38→17:13)
[2021-07-22 08:34] VITALS: BP 149/92
[2021-07-22 08:38] VITALS: BP 140/88
[2021-07-22] MEDS: FOLIC ACID 1 MG TABLET PO SCH (08:40)
[2021-07-22] MEDS: LISINOPRIL 20 MG TABLET PO SCH (08:40)
[2021-07-22] MEDS: MULTIVITAMINS WITH MINERALS, THERAPEUTIC TABLET PO SCH (08:40)
[2021-07-22] MEDS: PANTOPRAZOLE SODIUM 40 MG DR TABLET PO SCH (08:41)
[2021-07-22] MEDS: CHOLECALCIFEROL (VIT D3) 5,000 [125 MCG] UNITS CAPSULE PO SCH (08:41)
[2021-07-22 16:29] VITALS: BP 145/83
[2021-07-22] MEDS: LURASIDONE HCL 80 MG TABLET PO SCH (17:13)
[2021-07-22] MEDS: ATORVASTATIN CALCIUM 10 MG TABLET PO SCH (20:40)
[2021-07-22] MEDS: GABAPENTIN 300 MG CAPSULE PO SCH (20:40)
[2021-07-22] MEDS: LITHIUM CARBONATE 300 MG CAPSULE PO SCH (20:40)
[2021-07-23] MEDS: LEVOTHYROXINE SODIUM 100 MCG TABLET PO SCH (06:34)
[2021-07-23] MEDS: FERROUS SULFATE 325 MG EC TABLET PO SCH (06:34)
[2021-07-23] MEDS: MetFORMIN HCL 500 MG TABLET PO SCH ×2 (06:35→17:25)
[2021-07-23] MEDS: FOLIC ACID 1 MG TABLET PO SCH (08:31)
[2021-07-23] MEDS: MULTIVITAMINS WITH MINERALS, THERAPEUTIC TABLET PO SCH (08:31)
[2021-07-23] MEDS: PANTOPRAZOLE SODIUM 40 MG DR TABLET PO SCH (08:31)
[2021-07-23] MEDS: CHOLECALCIFEROL (VIT D3) 5,000 [125 MCG] UNITS CAPSULE PO SCH (08:32)
[2021-07-23] MEDS: LISINOPRIL 20 MG TABLET PO SCH (08:32)
[2021-07-23 08:59] VITALS: BP 105/53
[2021-07-23 16:00] VITALS: BP 117/58
[2021-07-23] MEDS: LURASIDONE HCL 80 MG TABLET PO SCH (16:14)
[2021-07-23] MEDS: LITHIUM CARBONATE 300 MG CAPSULE PO SCH (20:11)
[2021-07-23] MEDS: ATORVASTATIN CALCIUM 10 MG TABLET PO SCH (20:11)
[2021-07-23] MEDS: GABAPENTIN 300 MG CAPSULE PO SCH (20:11)
[2021-07-24] MEDS: MetFORMIN HCL 500 MG TABLET PO SCH ×2 (06:39→16:55)
[2021-07-24] MEDS: LEVOTHYROXINE SODIUM 100 MCG TABLET PO SCH (06:39)
[2021-07-24] MEDS: FERROUS SULFATE 325 MG EC TABLET PO SCH (06:39)
[2021-07-24] MEDS: LISINOPRIL 20 MG TABLET PO SCH (08:11)
[2021-07-24] MEDS: CHOLECALCIFEROL (VIT D3) 5,000 [125 MCG] UNITS CAPSULE PO SCH (08:11)
[2021-07-24] MEDS: FOLIC ACID 1 MG TABLET PO SCH (08:11)
[2021-07-24] MEDS: MULTIVITAMINS WITH MINERALS, THERAPEUTIC TABLET PO SCH (08:11)
[2021-07-24] MEDS: PANTOPRAZOLE SODIUM 40 MG DR TABLET PO SCH (08:11)
[2021-07-24 08:30] VITALS: BP 116/60
[2021-07-24 16:00] VITALS: BP 120/66
[2021-07-24] MEDS: LURASIDONE HCL 80 MG TABLET PO SCH (16:55)
[2021-07-24] MEDS: GABAPENTIN 300 MG CAPSULE PO SCH (20:04)
[2021-07-24] MEDS: ATORVASTATIN CALCIUM 10 MG TABLET PO SCH (20:04)
[2021-07-24] MEDS: LITHIUM CARBONATE 300 MG CAPSULE PO SCH (20:04)
[2021-07-25] MEDS: FERROUS SULFATE 325 MG EC TABLET PO SCH (06:33)
[2021-07-25] MEDS: MetFORMIN HCL 500 MG TABLET PO SCH ×2 (06:33→17:14)
[2021-07-25] MEDS: LEVOTHYROXINE SODIUM 100 MCG TABLET PO SCH (06:33)
[2021-07-25] MEDS: FOLIC ACID 1 MG TABLET PO SCH (09:06)
[2021-07-25] MEDS: MULTIVITAMINS WITH MINERALS, THERAPEUTIC TABLET PO SCH (09:06)
[2021-07-25] MEDS: LISINOPRIL 20 MG TABLET PO SCH (09:06)
[2021-07-25] MEDS: PANTOPRAZOLE SODIUM 40 MG DR TABLET PO SCH (09:06)
[2021-07-25] MEDS: CHOLECALCIFEROL (VIT D3) 5,000 [125 MCG] UNITS CAPSULE PO SCH (09:06)
[2021-07-25 16:18] VITALS: BP 112/58
[2021-07-25] MEDS: HALOPERIDOL 5 MG TABLET PO PRN (17:14)
[2021-07-25] MEDS: LURASIDONE HCL 80 MG TABLET PO SCH (17:14)
[2021-07-25] MEDS: ATORVASTATIN CALCIUM 10 MG TABLET PO SCH (20:29)
[2021-07-25] MEDS: GABAPENTIN 300 MG CAPSULE PO SCH (20:30)
[2021-07-25] MEDS: LITHIUM CARBONATE 300 MG CAPSULE PO SCH (20:30)
[2021-07-26] MEDS: LEVOTHYROXINE SODIUM 100 MCG TABLET PO SCH (06:55)
[2021-07-26] MEDS: FERROUS SULFATE 325 MG EC TABLET PO SCH (06:55)
[2021-07-26] MEDS: MetFORMIN HCL 500 MG TABLET PO SCH (06:55)
[2021-07-26 08:00] VITALS: BP 126/80
[2021-07-26] MEDS: CHOLECALCIFEROL (VIT D3) 5,000 [125 MCG] UNITS CAPSULE PO SCH (08:20)
[2021-07-26] MEDS: MULTIVITAMINS WITH MINERALS, THERAPEUTIC TABLET PO SCH (08:20)
[2021-07-26] MEDS: LISINOPRIL 20 MG TABLET PO SCH (08:20)
[2021-07-26] MEDS: FOLIC ACID 1 MG TABLET PO SCH (08:20)
[2021-07-26] MEDS: PANTOPRAZOLE SODIUM 40 MG DR TABLET PO SCH (08:21)
[2021-07-26] MEDS ORDERED: LITH300C3 PO (09:59)
[2021-07-26] MEDS ORDERED: LURA80TA2 PO (09:59)
[2021-07-26] MEDS ORDERED: METF-1211 PO (11:09)
[2021-07-26 13:03] LABS: COVID AG,FIA SOURCE NASOPHARYNGEAL
== END 2021-07-26 14:45 | disposition home or self-care (01) | DRG 885 ==
LOC: EMS 12:40 → 3EX 17:50 → EMS 21:30 → 3EI 07-22 14:00
PROVIDERS: ADMIT Psychiatry & Neurology Psychiatry; ATTEND Psychiatry & Neurology Psychiatry
DX: F25.9 Schizoaffective disorder, unspecified (principal); E03.9 Hypothyroidism, unspecified; E11.9 Type 2 diabetes mellitus without complications; E66.9 Obesity, unspecified; E78.00 Pure hypercholesterolemia, unspecified; F31.9 Bipolar disorder, unspecified; F41.9 Anxiety disorder, unspecified; Z20.822 Contact with and (suspected) exposure to COVID-19; G47.33 Obstructive sleep apnea (adult) (pediatric); I10 Essential (primary) hypertension; J44.9 Chronic obstructive pulmonary disease, unspecified; K59.00 Constipation, unspecified; K74.60 Unspecified cirrhosis of liver; G47.30 Sleep apnea, unspecified; Z59.00 Homelessness unspecified; Z91.14 Patient's other noncompliance with medication regimen; Z56.0 Unemployment, unspecified; Z72.89 Other problems related to lifestyle; Z71.41 Alcohol abuse counseling and surveillance of alcoholic; Z68.35 Body mass index [BMI] 35.0-35.9, adult; Z79.84 Long term (current) use of oral hypoglycemic drugs
CPT/HCPCS: 80053; 80178; 82962; 85025; 99285; G0378; G0480

== ENCOUNTER 2021-09-28 16:01 | Emergency (ER) | payer MEDICARE, MEDICAID ==
[~2021-09-28] VITALS: Ht 172.7 cm; Wt 113.6 kg
[~2021-09-28 16:01] MED LIST changes: -ARIP15TA27 PO; +LITH300C3 PO; -LITH300T PO; +METF-1211 PO; -METF-911 PO; -TRAZ-252 PO
[2021-09-28 16:48] LABS: BASOPHILS % (AUTO) 0.6 % (0.0-2.0); EOSINOPHILS % (AUTO) 3.9 % (1.0-6.0); HEMATOCRIT 36.3 % (41-53); HEMOGLOBIN 12.2 g/dL (13.5-17.5); LYMPHOCYTES # (AUTO) 0.7 K/uL (1.0-4.8); MEAN CORPUSCULAR HGB CONC 33.7 G/dL (31.0-37.0); MEAN CORPUSCULAR VOLUME 89 fL (80-100); MONOCYTES # (AUTO) 0.6 K/uL (0.1-1.0); MONOCYTES % (AUTO) 13.1 % (2.0-9.0); NEUTROPHILS # (AUTO) 3.4 K/uL (1.8-7.7); NEUTROPHILS % (AUTO) 68.4 % (40.0-70.0); PLATELET COUNT (AUTO) 101 K/uL (150-450); RED BLOOD CELL COUNT(AUTO) 4.07 MIL/uL (4.50-5.90); RED CELL DISTRIBUTION WIDTH 15.4 % (11.5-14.5)
[2021-09-28 16:57] LABS: ANION GAP 6 mmol/L (8-16); CALCIUM, TOTAL 9.1 mg/dL (8.8-10.5); CARBON DIOXIDE 28 mmol/L (22-29); CHLORIDE 104 mmol/L (98-107); CREATININE 0.74 mg/dL (0.60-1.30); GLOMERULAR FILTR. RATE CALC > 60 mL/min (>60); GLUCOSE,RANDOM 259 mg/dL (70-110); SODIUM SERUM 138 mmol/L (136-145); UREA NITROGEN, BLOOD 9 mg/dL (7-18)
[2021-09-28 17:03] LABS: ALANINE AMINOTRANSFERASE 59 U/L (12-78); ALBUMIN 3.5 g/dL (3.4-5.0); ALKALINE PHOSPHATASE 96 U/L (46-116); ASPARTATE AMINOTRANSFERASE 32 U/L (15-37); BILIRUBIN,TOTAL 0.4 mg/dL (0.1-1.0)
[2021-09-28] MEDS ORDERED: HALOPERIDOL LACTATE 5 MG/ML VIAL IM ONE (21:00)
[2021-09-28 22:42] VITALS: BP 134/74
== END 2021-09-28 23:00 | disposition home or self-care (01) ==
LOC: EMS 16:04
DX: R45.851 Suicidal ideations (principal); F31.9 Bipolar disorder, unspecified; F20.9 Schizophrenia, unspecified; I10 Essential (primary) hypertension; E11.9 Type 2 diabetes mellitus without complications; E78.00 Pure hypercholesterolemia, unspecified; E03.9 Hypothyroidism, unspecified; Z79.899 Other long term (current) drug therapy
CPT/HCPCS: 36415; 80053; 82962; 85025; 96372; 99284; G0480; J1630

== ENCOUNTER 2021-09-29 00:30 | Outpatient (CLI) | payer OTHER ==
[~2021-09-29] VITALS: Ht 177.8 cm; Wt 103.9 kg
[2021-09-29] MEDS ORDERED: LURASIDONE HCL 40 MG TABLET PO ONE (02:15)
[2021-09-29] MEDS ORDERED: LITHIUM CARBONATE 300 MG CAPSULE PO ONE (02:15)
[2021-09-29 03:06] LABS: GLUCOMETER DEV NAME(LOC) POC.BV
[2021-09-29 03:10] VITALS: BP 117/76
[2021-09-29] MEDS ORDERED: ZOLPIDEM TARTRATE 10 MG TABLET PO PRN (21:45)
[2021-09-29] MEDS ORDERED: LORazepam 2 MG TABLET PO PRN (21:45)
[2021-09-29] MEDS ORDERED: HALOPERIDOL 5 MG TABLET PO PRN (21:45)
[2021-09-30 01:21] VITALS: BP 139/83
[2021-09-30 07:29] LABS: HEMATOCRIT 35.3 % (41-53); HEMOGLOBIN 12.1 g/dL (13.5-17.5); LYMPHOCYTES # (AUTO) 0.7 K/uL (1.0-4.8); LYMPHOCYTES % (AUTO) 15.9 % (22.0-44.0); MEAN CORPUSCULAR HEMOGLOBIN 30.5 pg (26.0-34.0); MEAN CORPUSCULAR HGB CONC 34.3 G/dL (31.0-37.0); MEAN CORPUSCULAR VOLUME 89 fL (80-100); MONOCYTES # (AUTO) 0.6 K/uL (0.1-1.0); MONOCYTES % (AUTO) 14.2 % (2.0-9.0); NEUTROPHILS # (AUTO) 2.8 K/uL (1.8-7.7); NEUTROPHILS % (AUTO) 63.9 % (40.0-70.0); PLATELET COUNT (AUTO) 90 K/uL (150-450); RED BLOOD CELL COUNT(AUTO) 3.96 MIL/uL (4.50-5.90); RED CELL DISTRIBUTION WIDTH 15.3 % (11.5-14.5)
[2021-09-30 07:40] LABS: HEMOGLOBIN A1C 9.8 % (3.8-5.6)
[2021-09-30 07:51] LABS: AMPHET/METH SCREEN,URINE NEGATIVE (NEGATIVE); BARBITURATE SCREEN, URINE NEGATIVE (NEGATIVE); BENZODIAZEPINES SCREEN,URINE NEGATIVE (NEGATIVE); CANNABINOID SCREEN,URINE NEGATIVE (NEGATIVE); COCAINE SCREEN,URINE NEGATIVE (NEGATIVE); METHADONE SCREEN, URINE NEGATIVE (NEGATIVE); OPIATE SCREEN,URINE NEGATIVE (NEGATIVE)
[2021-09-30 07:53] LABS: ALANINE AMINOTRANSFERASE 49 U/L (12-78); ALBUMIN 3.3 g/dL (3.4-5.0); ALKALINE PHOSPHATASE 93 U/L (46-116); ANION GAP 9 mmol/L (8-16); ASPARTATE AMINOTRANSFERASE 22 U/L (15-37); BILIRUBIN,TOTAL 0.3 mg/dL (0.1-1.0); CALCIUM, TOTAL 8.7 mg/dL (8.8-10.5); CARBON DIOXIDE 27 mmol/L (22-29); CHLORIDE 101 mmol/L (98-107); CHOL/HDL RATIO 4.5 (4.2-7.3); CHOLESTEROL 179 mg/dL (131-200); CREATININE 0.77 mg/dL (0.60-1.30); GLOMERULAR FILTR. RATE CALC > 60 mL/min (>60); GLUCOSE,RANDOM 290 mg/dL (70-110); HDL CHOLESTEROL 40 mg/dL (40-60); LDL CHOL (CALC.) 91 mg/dL (0-130); POTASSIUM 3.8 mmol/L (3.5-5.1); SODIUM SERUM 137 mmol/L (136-145); TOTAL PROTEIN, SERUM 7.6 g/dL (6.4-8.2); TRIGLYCERIDES 238 mg/dL (15-150); UREA NITROGEN, BLOOD 11 mg/dL (7-18)
[2021-09-30 07:57] LABS: PHENCYCLIDINE SCREEN,URINE NEGATIVE (NEGATIVE)
[2021-09-30 08:21] VITALS: BP 133/65
[2021-09-30 08:26] LABS: FREE T4 (FREE THYROXINE) 1.01 ng/dL (0.76-1.46); THYROID STIMULATING HORMONE 0.32 uIU/mL (0.36-3.74)
[2021-09-30] MEDS ORDERED: ACETAMINOPHEN 325 MG TABLET PO PRN (09:15)
[2021-09-30] MEDS ORDERED: MAG HYDROX/AL HYDROX/SIMETH ES 30 ML SUSPENSION UDCUP PO PRN (09:15)
[2021-09-30] MEDS ORDERED: DOCUSATE SODIUM 100 MG CAPSULE PO PRN (09:15)
[2021-09-30] MEDS ORDERED: ONDANSETRON HCL 4 MG TABLET PO PRN (09:15)
[2021-09-30] MEDS ORDERED: GLUCAGON,HUMAN RECOMBINANT 1 MG VIAL IM PRN (09:15)
[2021-09-30] MEDS ORDERED: IBUPROFEN 600 MG TABLET PO PRN (09:15)
[2021-09-30] MEDS ORDERED: MAGNESIUM HYDROXIDE SUSPENSION 30 ML UDCUP PO PRN (09:15)
[2021-09-30] MEDS ORDERED: ALBUTEROL SULFATE HFA 90 MCG/PUFF 8 GM INHALER IH PRN (09:15)
[2021-09-30] MEDS ORDERED: LOPERAMIDE HCL 2 MG CAPSULE PO PRN (09:15)
[2021-09-30] MEDS ORDERED: BACITRACIN 28 GM OINTMENT TP PRN (09:15)
[2021-09-30] MEDS ORDERED: OMEPRAZOLE 20 MG CAPSULE PO PRN (09:15)
[2021-09-30] MEDS ORDERED: CloNIDine HCL 0.1 MG TABLET PO PRN (09:15)
[2021-09-30] MEDS ORDERED: INSULIN LISPRO 100 UNITS/ML SQ PRN (09:15)
[2021-09-30] MEDS ORDERED: BENZOCAINE/MENTHOL LOZENGE PO PRN (09:15)
[2021-09-30] MEDS ORDERED: PETROLATUM,WHITE 28 GM JELLY TP PRN (09:15)
[2021-09-30] MEDS ORDERED: MetFORMIN HCL 500 MG TABLET PO SCH (17:00)
[2021-09-30] MEDS ORDERED: GABAPENTIN 300 MG CAPSULE PO SCH (21:00)
[2021-09-30] MEDS ORDERED: ATORVASTATIN CALCIUM 10 MG TABLET PO SCH (21:00)
[2021-10-01] MEDS ORDERED: LEVOTHYROXINE SODIUM 100 MCG TABLET PO SCH (06:30)
[2021-10-01] MEDS ORDERED: FERROUS SULFATE 325 MG EC TABLET PO SCH (07:00)
[2021-10-01] MEDS ORDERED: CHOLECALCIFEROL (VIT D3) 5,000 [125 MCG] UNITS CAPSULE PO SCH (09:00)
[2021-10-01] MEDS ORDERED: LISINOPRIL 20 MG TABLET PO SCH (09:00)
[2021-10-01] MEDS ORDERED: FOLIC ACID 1 MG TABLET PO SCH (09:00)
== END 2021-09-29 21:39 ==
LOC: CSU 00:30 → B2S 21:00 → UNDOADMIN 21:00 → CSU 21:39
PROVIDERS: ATTEND Psychiatry & Neurology Psychiatry
DX: F25.0 Schizoaffective disorder, bipolar type (principal); E11.9 Type 2 diabetes mellitus without complications; I10 Essential (primary) hypertension; E66.9 Obesity, unspecified; D64.9 Anemia, unspecified; K74.60 Unspecified cirrhosis of liver
CPT/HCPCS: 80053; 80061; 80307; 83036; 84439; 84443; 85025; 90792

== ENCOUNTER 2021-09-29 21:39 | Inpatient (IN) | payer MEDICARE, MEDICAID ==
[~2021-09-29] VITALS: Ht 177.8 cm; Wt 119.3 kg
[2021-09-30 09:00] VITALS: BP 133/65
[2021-09-30] MEDS: CHOLECALCIFEROL (VIT D3) 5,000 [125 MCG] UNITS CAPSULE PO SCH (09:00)
[2021-09-30] MEDS ORDERED: HALOPERIDOL 5 MG TABLET ONE (09:35)
[2021-09-30] MEDS ORDERED: LORazepam 2 MG TABLET ONE (09:35)
[2021-09-30] MEDS ORDERED: LORazepam 2 MG TABLET PO PRN (09:45)
[2021-09-30] MEDS ORDERED: ZOLPIDEM TARTRATE 10 MG TABLET PO PRN ×2 (09:45→18:30)
[2021-09-30] MEDS ORDERED: HALOPERIDOL 5 MG TABLET PO PRN (09:45)
[2021-09-30] MEDS ORDERED: BENZOCAINE/MENTHOL LOZENGE PO PRN (10:00)
[2021-09-30] MEDS ORDERED: ONDANSETRON HCL 4 MG TABLET PO PRN (10:00)
[2021-09-30] MEDS ORDERED: PETROLATUM,WHITE 28 GM JELLY TP PRN (10:00)
[2021-09-30] MEDS ORDERED: GLUCAGON,HUMAN RECOMBINANT 1 MG VIAL IM PRN (10:00)
[2021-09-30] MEDS ORDERED: ACETAMINOPHEN 325 MG TABLET PO PRN (10:00)
[2021-09-30] MEDS ORDERED: MAG HYDROX/AL HYDROX/SIMETH ES 30 ML SUSPENSION UDCUP PO PRN (10:00)
[2021-09-30] MEDS ORDERED: ALBUTEROL SULFATE HFA 90 MCG/PUFF 8 GM INHALER IH PRN (10:00)
[2021-09-30] MEDS ORDERED: LOPERAMIDE HCL 2 MG CAPSULE PO PRN (10:00)
[2021-09-30] MEDS ORDERED: INSULIN LISPRO 100 UNITS/ML SQ PRN (10:00)
[2021-09-30] MEDS ORDERED: DOCUSATE SODIUM 100 MG CAPSULE PO PRN (10:00)
[2021-09-30] MEDS ORDERED: OMEPRAZOLE 20 MG CAPSULE PO PRN (10:00)
[2021-09-30] MEDS ORDERED: IBUPROFEN 600 MG TABLET PO PRN (10:00)
[2021-09-30] MEDS ORDERED: MAGNESIUM HYDROXIDE SUSPENSION 30 ML UDCUP PO PRN (10:00)
[2021-09-30] MEDS ORDERED: CloNIDine HCL 0.1 MG TABLET PO PRN (10:00)
[2021-09-30] MEDS ORDERED: BACITRACIN 28 GM OINTMENT TP PRN (10:00)
[2021-09-30] MEDS: LISINOPRIL 20 MG TABLET PO SCH (10:16)
[2021-09-30] MEDS: FERROUS SULFATE 325 MG EC TABLET PO SCH (10:16)
[2021-09-30] MEDS: FOLIC ACID 1 MG TABLET PO SCH (10:16)
[2021-09-30] MEDS: LEVOTHYROXINE SODIUM 100 MCG TABLET PO SCH (10:17)
[2021-09-30 11:11] LABS: GLUCOMETER DEV NAME(LOC) BV2S.; GLUCOSE,POINT OF CARE 374 MG/DL (70-110)
[2021-09-30 16:16] VITALS: BP 128/64
[2021-09-30] MEDS: MetFORMIN HCL 500 MG TABLET PO SCH (16:16)
[2021-09-30 16:46] LABS: GLUCOMETER DEV NAME(LOC) BV2S.; GLUCOSE,POINT OF CARE 405 MG/DL (70-110)
[2021-09-30] MEDS: INSULIN LISPRO 100 UNITS/ML SQ PRN ×2 (17:25→21:13)
[2021-09-30 20:01] LABS: GLUCOMETER DEV NAME(LOC) BV2S.; GLUCOSE,POINT OF CARE 382 MG/DL (70-110)
[2021-09-30] MEDS: LITHIUM CARBONATE 300 MG CAPSULE PO SCH (20:10)
[2021-09-30] MEDS: GABAPENTIN 300 MG CAPSULE PO SCH (20:10)
[2021-09-30] MEDS: ATORVASTATIN CALCIUM 10 MG TABLET PO SCH (20:10)
[2021-09-30 21:06] LABS: GLUCOMETER DEV NAME(LOC) BV2S.; GLUCOSE,POINT OF CARE 287 MG/DL (70-110)
[2021-10-01 06:16] VITALS: BP 138/85
[2021-10-01 06:27] LABS: GLUCOMETER DEV NAME(LOC) BV2S.; GLUCOSE,POINT OF CARE 249 MG/DL (70-110)
[2021-10-01] MEDS: FERROUS SULFATE 325 MG EC TABLET PO SCH (06:59)
[2021-10-01] MEDS: LEVOTHYROXINE SODIUM 100 MCG TABLET PO SCH (06:59)
[2021-10-01] MEDS: MetFORMIN HCL 500 MG TABLET PO SCH ×2 (06:59→16:23)
[2021-10-01] MEDS: INSULIN LISPRO 100 UNITS/ML SQ PRN ×4 (07:00→20:03)
[2021-10-01 07:14] LABS: BASOPHILS % (AUTO) 0.8 % (0.0-2.0); EOSINOPHILS % (AUTO) 4.7 % (1.0-6.0); HEMATOCRIT 38.1 % (41-53); HEMOGLOBIN 12.8 g/dL (13.5-17.5); LYMPHOCYTES # (AUTO) 0.9 K/uL (1.0-4.8); LYMPHOCYTES % (AUTO) 17.6 % (22.0-44.0); MEAN CORPUSCULAR HEMOGLOBIN 30.2 pg (26.0-34.0); MEAN CORPUSCULAR HGB CONC 33.6 G/dL (31.0-37.0); MEAN CORPUSCULAR VOLUME 90 fL (80-100); MONOCYTES # (AUTO) 0.7 K/uL (0.1-1.0); MONOCYTES % (AUTO) 13.1 % (2.0-9.0); NEUTROPHILS # (AUTO) 3.4 K/uL (1.8-7.7); NEUTROPHILS % (AUTO) 63.8 % (40.0-70.0); PLATELET COUNT (AUTO) 102 K/uL (150-450); RED BLOOD CELL COUNT(AUTO) 4.25 MIL/uL (4.50-5.90); RED CELL DISTRIBUTION WIDTH 15.4 % (11.5-14.5)
[2021-10-01 07:25] LABS: HEMOGLOBIN A1C 9.8 % (3.8-5.6)
[2021-10-01 07:41] LABS: ALANINE AMINOTRANSFERASE 56 U/L (12-78); ALBUMIN 3.4 g/dL (3.4-5.0); ALKALINE PHOSPHATASE 92 U/L (46-116); ANION GAP 7 mmol/L (8-16); ASPARTATE AMINOTRANSFERASE 29 U/L (15-37); BILIRUBIN,TOTAL 0.6 mg/dL (0.1-1.0); CALCIUM, TOTAL 9.4 mg/dL (8.8-10.5); CARBON DIOXIDE 30 mmol/L (22-29); CHLORIDE 101 mmol/L (98-107); CHOLESTEROL 180 mg/dL (131-200); CREATININE 0.71 mg/dL (0.60-1.30); FREE T4 (FREE THYROXINE) 1.05 ng/dL (0.76-1.46); GLOMERULAR FILTR. RATE CALC > 60 mL/min (>60); GLUCOSE,RANDOM 246 mg/dL (70-110); HDL CHOLESTEROL 45 mg/dL (40-60); LDL CHOL (CALC.) 106 mg/dL (0-130); POTASSIUM 4.3 mmol/L (3.5-5.1); SODIUM SERUM 138 mmol/L (136-145); THYROID STIMULATING HORMONE 0.29 uIU/mL (0.36-3.74); TRIGLYCERIDES 143 mg/dL (15-150); UREA NITROGEN, BLOOD 11 mg/dL (7-18)
[2021-10-01 08:12] VITALS: BP 121/71
[2021-10-01] MEDS: CHOLECALCIFEROL (VIT D3) 5,000 [125 MCG] UNITS CAPSULE PO SCH (09:48)
[2021-10-01] MEDS: FOLIC ACID 1 MG TABLET PO SCH (09:48)
[2021-10-01] MEDS: ARIPiprazole 10 MG TABLET PO SCH (09:48)
[2021-10-01] MEDS: LISINOPRIL 20 MG TABLET PO SCH (09:48)
[2021-10-01 11:46] LABS: GLUCOMETER DEV NAME(LOC) BV2S.; GLUCOSE,POINT OF CARE 323 MG/DL (70-110)
[2021-10-01 16:15] VITALS: BP 131/70
[2021-10-01 17:06] LABS: GLUCOMETER DEV NAME(LOC) BV2S.; GLUCOSE,POINT OF CARE 345 MG/DL (70-110)
[2021-10-01] MEDS: LITHIUM CARBONATE 300 MG CAPSULE PO SCH (20:00)
[2021-10-01] MEDS: ATORVASTATIN CALCIUM 10 MG TABLET PO SCH (20:00)
[2021-10-01] MEDS: GABAPENTIN 300 MG CAPSULE PO SCH (20:00)
[2021-10-01 20:26] LABS: GLUCOMETER DEV NAME(LOC) BV2S.; GLUCOSE,POINT OF CARE 345 MG/DL (70-110)
[2021-10-02 01:00] VITALS: BP 129/68
[2021-10-02 06:31] LABS: GLUCOMETER DEV NAME(LOC) BV2S.; GLUCOSE,POINT OF CARE 254 MG/DL (70-110)
[2021-10-02] MEDS: FERROUS SULFATE 325 MG EC TABLET PO SCH (06:52)
[2021-10-02] MEDS: MetFORMIN HCL 500 MG TABLET PO SCH ×2 (06:52→17:24)
[2021-10-02] MEDS: LEVOTHYROXINE SODIUM 100 MCG TABLET PO SCH (06:52)
[2021-10-02] MEDS: INSULIN LISPRO 100 UNITS/ML SQ PRN ×4 (06:53→20:42)
[2021-10-02] MEDS ORDERED: GuaiFENesin/D-METHORPHAN [SUGAR-FREE] 200-20MG/10 ML SYRUP UDCUP PO PRN (07:30)
[2021-10-02] MEDS ORDERED: HydrOXYzine PAMOATE 50 MG CAPSULE PO PRN (07:30)
[2021-10-02 08:30] VITALS: BP 124/68
[2021-10-02] MEDS: FOLIC ACID 1 MG TABLET PO SCH ×2 (09:00→09:48)
[2021-10-02] MEDS: ARIPiprazole 10 MG TABLET PO SCH (09:48)
[2021-10-02] MEDS: THIAMINE 100 MG TABLET PO SCH ×2 (09:48→17:24)
[2021-10-02] MEDS: LISINOPRIL 20 MG TABLET PO SCH (09:48)
[2021-10-02] MEDS: MULTIVITAMINS WITH MINERALS, THERAPEUTIC TABLET PO SCH (09:48)
[2021-10-02] MEDS: CHOLECALCIFEROL (VIT D3) 5,000 [125 MCG] UNITS CAPSULE PO SCH (09:49)
[2021-10-02 11:31] LABS: GLUCOMETER DEV NAME(LOC) BV2S.; GLUCOSE,POINT OF CARE 178 MG/DL (70-110)
[2021-10-02 16:27] VITALS: BP 128/70
[2021-10-02] MEDS: ATORVASTATIN CALCIUM 10 MG TABLET PO SCH (20:27)
[2021-10-02] MEDS: LITHIUM CARBONATE 300 MG CAPSULE PO SCH (20:28)
[2021-10-02] MEDS: GABAPENTIN 300 MG CAPSULE PO SCH (20:28)
[2021-10-02 20:46] LABS: GLUCOMETER DEV NAME(LOC) BV2S.; GLUCOSE,POINT OF CARE 213 MG/DL (70-110)
[2021-10-03 06:06] VITALS: BP 117/68
[2021-10-03] MEDS: FERROUS SULFATE 325 MG EC TABLET PO SCH (06:45)
[2021-10-03] MEDS: LEVOTHYROXINE SODIUM 100 MCG TABLET PO SCH (06:45)
[2021-10-03] MEDS: MetFORMIN HCL 500 MG TABLET PO SCH ×2 (06:45→16:08)
[2021-10-03 06:50] LABS: GLUCOMETER DEV NAME(LOC) BV2S.; GLUCOSE,POINT OF CARE 189 MG/DL (70-110)
[2021-10-03] MEDS: INSULIN LISPRO 100 UNITS/ML SQ PRN ×4 (06:50→20:35)
[2021-10-03 08:04] LABS: AMPHET/METH SCREEN,URINE NEGATIVE (NEGATIVE); BARBITURATE SCREEN, URINE NEGATIVE (NEGATIVE); BENZODIAZEPINES SCREEN,URINE NEGATIVE (NEGATIVE); CANNABINOID SCREEN,URINE NEGATIVE (NEGATIVE); COCAINE SCREEN,URINE NEGATIVE (NEGATIVE); METHADONE SCREEN, URINE NEGATIVE (NEGATIVE); OPIATE SCREEN,URINE NEGATIVE (NEGATIVE)
[2021-10-03 08:05] LABS: PHENCYCLIDINE SCREEN,URINE NEGATIVE (NEGATIVE)
[2021-10-03 08:27] VITALS: BP 147/87
[2021-10-03] MEDS: CHOLECALCIFEROL (VIT D3) 5,000 [125 MCG] UNITS CAPSULE PO SCH (09:15)
[2021-10-03] MEDS: THIAMINE 100 MG TABLET PO SCH ×2 (09:15→16:08)
[2021-10-03] MEDS: LISINOPRIL 20 MG TABLET PO SCH (09:15)
[2021-10-03] MEDS: FOLIC ACID 1 MG TABLET PO SCH (09:15)
[2021-10-03] MEDS: ARIPiprazole 10 MG TABLET PO SCH (09:15)
[2021-10-03] MEDS: MULTIVITAMINS WITH MINERALS, THERAPEUTIC TABLET PO SCH (09:15)
[2021-10-03 11:02] LABS: GLUCOMETER DEV NAME(LOC) BV2X.2; GLUCOSE,POINT OF CARE 254 MG/DL (70-110)
[2021-10-03 12:01] LABS: GLUCOMETER DEV NAME(LOC) BV2S.; GLUCOSE,POINT OF CARE 269 MG/DL (70-110)
[2021-10-03 16:20] VITALS: BP 119/68
[2021-10-03 16:56] LABS: GLUCOMETER DEV NAME(LOC) BV2S.; GLUCOSE,POINT OF CARE 259 MG/DL (70-110)
[2021-10-03] MEDS: GABAPENTIN 300 MG CAPSULE PO SCH (20:06)
[2021-10-03] MEDS: ATORVASTATIN CALCIUM 10 MG TABLET PO SCH (20:06)
[2021-10-03] MEDS: LITHIUM CARBONATE 300 MG TABLET PO SCH (20:21)
[2021-10-03] MEDS ORDERED: LITHIUM CARBONATE 300 MG CAPSULE PO SCH (21:00)
[2021-10-03 21:26] LABS: GLUCOMETER DEV NAME(LOC) BV2S.; GLUCOSE,POINT OF CARE 261 MG/DL (70-110)
[2021-10-04 00:12] VITALS: BP 110/64
[2021-10-04] MEDS: LORazepam 2 MG TABLET PO PRN ×2 (00:14→22:28)
[2021-10-04] MEDS: HALOPERIDOL 5 MG TABLET PO PRN ×2 (00:14→22:28)
[2021-10-04 06:16] LABS: GLUCOMETER DEV NAME(LOC) BV2S.; GLUCOSE,POINT OF CARE 159 MG/DL (70-110)
[2021-10-04] MEDS: LEVOTHYROXINE SODIUM 100 MCG TABLET PO SCH (06:42)
[2021-10-04] MEDS: FERROUS SULFATE 325 MG EC TABLET PO SCH (06:42)
[2021-10-04] MEDS: MetFORMIN HCL 500 MG TABLET PO SCH ×2 (06:42→16:52)
[2021-10-04] MEDS: INSULIN LISPRO 100 UNITS/ML SQ PRN ×4 (06:43→20:58)
[2021-10-04 06:51] LABS: GLUCOMETER DEV NAME(LOC) POC.BV
[2021-10-04 08:10] VITALS: BP 140/82
[2021-10-04] MEDS: ARIPiprazole 10 MG TABLET PO SCH (08:35)
[2021-10-04] MEDS: LISINOPRIL 20 MG TABLET PO SCH (08:35)
[2021-10-04] MEDS: FOLIC ACID 1 MG TABLET PO SCH (08:35)
[2021-10-04] MEDS: CHOLECALCIFEROL (VIT D3) 5,000 [125 MCG] UNITS CAPSULE PO SCH (08:35)
[2021-10-04] MEDS: THIAMINE 100 MG TABLET PO SCH ×2 (08:35→16:51)
[2021-10-04] MEDS: MULTIVITAMINS WITH MINERALS, THERAPEUTIC TABLET PO SCH (08:35)
[2021-10-04 11:51] LABS: GLUCOMETER DEV NAME(LOC) BV2S.; GLUCOSE,POINT OF CARE 272 MG/DL (70-110)
[2021-10-04] MEDS ORDERED: TUBERCULIN, PURIFIED PROTEIN DERIVATIVE 5 TU/0.1 ML SYRINGE ID ONE (15:00)
[2021-10-04 16:25] VITALS: BP 114/64
[2021-10-04 17:15] LABS: GLUCOMETER DEV NAME(LOC) BV2S.; GLUCOSE,POINT OF CARE 231 MG/DL (70-110)
[2021-10-04] MEDS: LITHIUM CARBONATE 300 MG TABLET PO SCH (20:55)
[2021-10-04] MEDS: ATORVASTATIN CALCIUM 10 MG TABLET PO SCH (20:55)
[2021-10-04] MEDS: GABAPENTIN 300 MG CAPSULE PO SCH (20:55)
[2021-10-04 21:01] LABS: GLUCOMETER DEV NAME(LOC) BV2S.; GLUCOSE,POINT OF CARE 275 MG/DL (70-110)
[2021-10-05] MEDS: LEVOTHYROXINE SODIUM 100 MCG TABLET PO SCH (05:47)
[2021-10-05 06:04] VITALS: BP 119/68
[2021-10-05] MEDS: FERROUS SULFATE 325 MG EC TABLET PO SCH (06:42)
[2021-10-05] MEDS: MetFORMIN HCL 500 MG TABLET PO SCH ×2 (06:42→16:09)
[2021-10-05] MEDS: INSULIN LISPRO 100 UNITS/ML SQ PRN ×2 (06:45→16:14)
[2021-10-05 06:55] LABS: GLUCOMETER DEV NAME(LOC) BV2S.; GLUCOSE,POINT OF CARE 198 MG/DL (70-110)
[2021-10-05] MEDS: CHOLECALCIFEROL (VIT D3) 5,000 [125 MCG] UNITS CAPSULE PO SCH (08:35)
[2021-10-05] MEDS: THIAMINE 100 MG TABLET PO SCH ×2 (08:36→16:10)
[2021-10-05] MEDS: LISINOPRIL 20 MG TABLET PO SCH (08:36)
[2021-10-05] MEDS: MULTIVITAMINS WITH MINERALS, THERAPEUTIC TABLET PO SCH (08:36)
[2021-10-05] MEDS: FOLIC ACID 1 MG TABLET PO SCH (08:36)
[2021-10-05 08:49] VITALS: BP 120/61
[2021-10-05] MEDS ORDERED: ARIPiprazole 15 MG TABLET PO SCH (09:00)
[2021-10-05 11:43] LABS: GLUCOMETER DEV NAME(LOC) BV2S.; GLUCOSE,POINT OF CARE 237 MG/DL (70-110)
[2021-10-05] MEDS ORDERED: ARIP15TA27 PO ×2 (15:18→16:11)
[2021-10-05] MEDS ORDERED: LITH300T PO ×2 (15:20→16:11)
[2021-10-05] MEDS ORDERED: LITH300C3 PO (15:20)
[2021-10-05] MEDS ORDERED: ATOR10TA69 PO (16:11)
[2021-10-05] MEDS ORDERED: LEVO100 PO (16:11)
[2021-10-05] MEDS ORDERED: METF-1211 PO (16:11)
[2021-10-05] MEDS ORDERED: GABA-1181 PO (16:11)
[2021-10-05] MEDS ORDERED: LISI-894 PO (16:11)
[2021-10-05] MEDS ORDERED: FERR-72 PO (16:11)
[2021-10-05] MEDS ORDERED: CHOL500013 PO (16:11)
[2021-10-05 16:20] VITALS: BP 139/78
[2021-10-05 16:45] LABS: GLUCOMETER DEV NAME(LOC) BV2S.; GLUCOSE,POINT OF CARE 227 MG/DL (70-110)
== END 2021-10-05 17:02 | disposition home or self-care (01) | DRG 885 ==
LOC: B2S 21:39
PROVIDERS: ADMIT Psychiatry & Neurology Psychiatry; ATTEND Psychiatry & Neurology Psychiatry
DX: F25.9 Schizoaffective disorder, unspecified (principal); F06.30 Mood disorder due to known physiological condition, unspecified; R45.851 Suicidal ideations; E03.9 Hypothyroidism, unspecified; E11.9 Type 2 diabetes mellitus without complications; E66.9 Obesity, unspecified; E78.00 Pure hypercholesterolemia, unspecified; F41.9 Anxiety disorder, unspecified; Z20.822 Contact with and (suspected) exposure to COVID-19; G47.33 Obstructive sleep apnea (adult) (pediatric); I10 Essential (primary) hypertension; J44.9 Chronic obstructive pulmonary disease, unspecified; K59.00 Constipation, unspecified; R41.843 Psychomotor deficit; K74.60 Unspecified cirrhosis of liver; Z55.9 Problems related to education and literacy, unspecified; Z59.00 Homelessness unspecified; Z63.9 Problem related to primary support group, unspecified; Z65.3 Problems related to other legal circumstances; Z91.14 Patient's other noncompliance with medication regimen; Z91.19 Patient's noncompliance with other medical treatment and regimen; Z56.0 Unemployment, unspecified; Z87.891 Personal history of nicotine dependence; Z72.89 Other problems related to lifestyle; Z68.37 Body mass index [BMI] 37.0-37.9, adult; Z79.84 Long term (current) use of oral hypoglycemic drugs
CPT/HCPCS: 80053; 80061; 80178; 80307; 82962; 83036; 84439; 84443; 85025

== ENCOUNTER 2022-01-05 22:19 | Emergency (ER) | payer OTHER ==
[~2022-01-05] VITALS: Ht 177.8 cm; Wt 119.3 kg
[~2022-01-05 22:19] MED LIST changes: +ARIP15TA27 PO; +ATOR10TA69 PO; -ATOR10TA84 PO; +FERR-72 PO; -FERR325T23 PO; -FOLI-130 PO; -LITH300C3 PO; +LITH300T PO; -LURA80TA2 PO; -MULT-413 PO; -PANT40TA54 PO
[2022-01-06 03:15] VITALS: BP 138/72
[2022-01-06] MEDS ORDERED: ARIPiprazole 15 MG TABLET PO ONE (03:45)
== END 2022-01-06 04:12 | disposition home or self-care (01) ==
LOC: EMS 22:23
DX: F31.9 Bipolar disorder, unspecified (principal); F10.20 Alcohol dependence, uncomplicated; F41.9 Anxiety disorder, unspecified; J44.9 Chronic obstructive pulmonary disease, unspecified; E11.9 Type 2 diabetes mellitus without complications; E78.00 Pure hypercholesterolemia, unspecified; I10 Essential (primary) hypertension; E03.9 Hypothyroidism, unspecified; F20.9 Schizophrenia, unspecified; E66.9 Obesity, unspecified; K74.60 Unspecified cirrhosis of liver; G47.30 Sleep apnea, unspecified; Z87.19 Personal history of other diseases of the digestive system; Z98.890 Other specified postprocedural states
CPT/HCPCS: 99283

== ENCOUNTER 2022-01-09 16:08 | Emergency (ER) | payer OTHER ==
[~2022-01-09] VITALS: Ht 175.3 cm; Wt 114.3 kg
[2022-01-09 17:25] LABS: BASOPHILS % (AUTO) 0.8 % (0.0-2.0); EOSINOPHILS % (AUTO) 3.3 % (1.0-6.0); HEMATOCRIT 40.9 % (41-53); HEMOGLOBIN 13.8 g/dL (13.5-17.5); LYMPHOCYTES # (AUTO) 1.2 K/uL (1.0-4.8); LYMPHOCYTES % (AUTO) 18.9 % (22.0-44.0); MEAN CORPUSCULAR HEMOGLOBIN 31.8 pg (26.0-34.0); MEAN CORPUSCULAR HGB CONC 33.7 G/dL (31.0-37.0); MEAN CORPUSCULAR VOLUME 94 fL (80-100); MONOCYTES # (AUTO) 0.6 K/uL (0.1-1.0); MONOCYTES % (AUTO) 10.2 % (2.0-9.0); NEUTROPHILS # (AUTO) 4.1 K/uL (1.8-7.7); NEUTROPHILS % (AUTO) 66.8 % (40.0-70.0); PLATELET COUNT (AUTO) 113 K/uL (150-450); RED BLOOD CELL COUNT(AUTO) 4.34 MIL/uL (4.50-5.90); RED CELL DISTRIBUTION WIDTH 13.8 % (11.5-14.5)
[2022-01-09 17:34] LABS: ANION GAP 10 mmol/L (8-16); CALCIUM, TOTAL 9.4 mg/dL (8.8-10.5); CARBON DIOXIDE 25 mmol/L (22-29); CHLORIDE 107 mmol/L (98-107); CREATININE 1.01 mg/dL (0.60-1.30); GLUCOSE,RANDOM 174 mg/dL (70-110); POTASSIUM 3.6 mmol/L (3.5-5.1); SODIUM SERUM 142 mmol/L (136-145); UREA NITROGEN, BLOOD 13 mg/dL (7-18)
[2022-01-09 17:35] LABS: GLOMERULAR FILTR. RATE CALC > 60 mL/min (>60)
[2022-01-09 17:42] LABS: ALANINE AMINOTRANSFERASE 71 U/L (12-78); ALBUMIN 3.8 g/dL (3.4-5.0); ALKALINE PHOSPHATASE 104 U/L (46-116); ASPARTATE AMINOTRANSFERASE 36 U/L (15-37); BILIRUBIN,TOTAL 0.6 mg/dL (0.1-1.0); TOTAL PROTEIN, SERUM 8.3 g/dL (6.4-8.2)
[2022-01-09 17:47] LABS: LITHIUM < 0.20 mmol/L (0.60-1.20)
[2022-01-09] MEDS ORDERED: ACETAMINOPHEN 500 MG TABLET PO ONE (18:00)
[2022-01-09 18:23] LABS: COVID AG,FIA SOURCE NASOPHARYNGEAL
[2022-01-09 18:53] LABS: AMPHET/METH SCREEN,URINE NEGATIVE (NEGATIVE); BARBITURATE SCREEN, URINE NEGATIVE (NEGATIVE); BENZODIAZEPINES SCREEN,URINE NEGATIVE (NEGATIVE); CANNABINOID SCREEN,URINE NEGATIVE (NEGATIVE); COCAINE SCREEN,URINE NEGATIVE (NEGATIVE); METHADONE SCREEN, URINE NEGATIVE (NEGATIVE); OPIATE SCREEN,URINE NEGATIVE (NEGATIVE)
[2022-01-09 18:57] LABS: PHENCYCLIDINE SCREEN,URINE NEGATIVE (NEGATIVE)
[2022-01-10 01:47] VITALS: BP 141/76
== END 2022-01-10 01:55 | disposition short-term general hospital (02) ==
LOC: EMS 16:08
DX: F31.9 Bipolar disorder, unspecified (principal); F10.20 Alcohol dependence, uncomplicated; F41.9 Anxiety disorder, unspecified; J44.9 Chronic obstructive pulmonary disease, unspecified; E11.9 Type 2 diabetes mellitus without complications; E78.00 Pure hypercholesterolemia, unspecified; I10 Essential (primary) hypertension; E03.9 Hypothyroidism, unspecified; F20.9 Schizophrenia, unspecified; E66.9 Obesity, unspecified; K74.60 Unspecified cirrhosis of liver; G47.30 Sleep apnea, unspecified; Z98.890 Other specified postprocedural states; Z87.19 Personal history of other diseases of the digestive system; Z20.822 Contact with and (suspected) exposure to COVID-19; Y90.0 Blood alcohol level of less than 20 mg/100 ml
CPT/HCPCS: 99285; 87426; 80053; 80178; 85025; 36415; 80307; G0480

== ENCOUNTER 2022-02-09 20:47 | Emergency (ER) | payer OTHER ==
[~2022-02-09] VITALS: Ht 175.3 cm; Wt 115.9 kg
[2022-02-09 22:47] LABS: BASOPHILS % (AUTO) 0.8 % (0.0-2.0); EOSINOPHILS % (AUTO) 4.5 % (1.0-6.0); HEMATOCRIT 36.9 % (41-53); HEMOGLOBIN 12.5 g/dL (13.5-17.5); LYMPHOCYTES # (AUTO) 1.1 K/uL (1.0-4.8); LYMPHOCYTES % (AUTO) 18.8 % (22.0-44.0); MEAN CORPUSCULAR HEMOGLOBIN 31.9 pg (26.0-34.0); MEAN CORPUSCULAR HGB CONC 33.9 G/dL (31.0-37.0); MEAN CORPUSCULAR VOLUME 94 fL (80-100); MONOCYTES # (AUTO) 0.7 K/uL (0.1-1.0); MONOCYTES % (AUTO) 11.7 % (2.0-9.0); NEUTROPHILS # (AUTO) 3.7 K/uL (1.8-7.7); NEUTROPHILS % (AUTO) 64.2 % (40.0-70.0); RED BLOOD CELL COUNT(AUTO) 3.92 MIL/uL (4.50-5.90); RED CELL DISTRIBUTION WIDTH 13.5 % (11.5-14.5)
[2022-02-09 23:02] LABS: ANION GAP 9 mmol/L (8-16); CALCIUM, TOTAL 8.7 mg/dL (8.8-10.5); CARBON DIOXIDE 25 mmol/L (22-29); CHLORIDE 101 mmol/L (98-107); CREATININE 0.86 mg/dL (0.60-1.30); GLUCOSE,RANDOM 307 mg/dL (70-110); POTASSIUM 3.4 mmol/L (3.5-5.1); SODIUM SERUM 135 mmol/L (136-145); UREA NITROGEN, BLOOD 7 mg/dL (7-18)
[2022-02-09 23:03] LABS: LITHIUM 0.39 mmol/L (0.60-1.20)
[2022-02-09 23:05] LABS: GLOMERULAR FILTR. RATE CALC > 60 mL/min (>60)
[2022-02-09 23:08] LABS: ALANINE AMINOTRANSFERASE 64 U/L (12-78); ALBUMIN 3.4 g/dL (3.4-5.0); ALKALINE PHOSPHATASE 107 U/L (46-116); ASPARTATE AMINOTRANSFERASE 36 U/L (15-37); BILIRUBIN,TOTAL 0.6 mg/dL (0.1-1.0); TOTAL PROTEIN, SERUM 7.5 g/dL (6.4-8.2)
[2022-02-09 23:25] LABS: PLATELET COUNT (AUTO) 95 K/uL (150-450)
[2022-02-09 23:39] LABS: THYROID STIMULATING HORMONE 0.36 uIU/mL (0.36-3.74)
[2022-02-10 00:27] LABS: COVID AG,FIA SOURCE NASOPHARYNGEAL
[2022-02-10 01:27] LABS: AMPHET/METH SCREEN,URINE NEGATIVE (NEGATIVE); BARBITURATE SCREEN, URINE NEGATIVE (NEGATIVE); BENZODIAZEPINES SCREEN,URINE NEGATIVE (NEGATIVE); CANNABINOID SCREEN,URINE NEGATIVE (NEGATIVE); COCAINE SCREEN,URINE NEGATIVE (NEGATIVE); METHADONE SCREEN, URINE NEGATIVE (NEGATIVE); OPIATE SCREEN,URINE NEGATIVE (NEGATIVE)
[2022-02-10 02:06] LABS: PHENCYCLIDINE SCREEN,URINE NEGATIVE (NEGATIVE)
[2022-02-10 02:26] LABS: GLUCOSE,POINT OF CARE 286 MG/DL (70-110)
[2022-02-10 03:00] VITALS: BP 105/70
== END 2022-02-10 04:33 | disposition short-term general hospital (02) ==
LOC: EMS 20:47
DX: F33.2 Major depressive disorder, recurrent severe without psychotic features (principal); Z20.822 Contact with and (suspected) exposure to COVID-19; E11.9 Type 2 diabetes mellitus without complications; E03.9 Hypothyroidism, unspecified; E78.00 Pure hypercholesterolemia, unspecified; F20.9 Schizophrenia, unspecified; F41.9 Anxiety disorder, unspecified; F17.210 Nicotine dependence, cigarettes, uncomplicated; J44.9 Chronic obstructive pulmonary disease, unspecified; I10 Essential (primary) hypertension; K74.60 Unspecified cirrhosis of liver
CPT/HCPCS: 99285; 87426; 80053; 80178; 82962; 84443; 85025; 36415; 80307; G0480

== ENCOUNTER 2022-02-28 00:32 | Inpatient (IN) | payer OTHER ==
[~2022-02-28] VITALS: Ht 172.7 cm; Wt 113.6 kg
[2022-02-28 03:29] LABS: BASOPHILS % (AUTO) 0.7 % (0.0-2.0); EOSINOPHILS % (AUTO) 4.2 % (1.0-6.0); HEMATOCRIT 37.4 % (41-53); HEMOGLOBIN 12.6 g/dL (13.5-17.5); LYMPHOCYTES # (AUTO) 0.8 K/uL (1.0-4.8); LYMPHOCYTES % (AUTO) 13.8 % (22.0-44.0); MEAN CORPUSCULAR HEMOGLOBIN 31.9 pg (26.0-34.0); MEAN CORPUSCULAR HGB CONC 33.8 G/dL (31.0-37.0); MEAN CORPUSCULAR VOLUME 94 fL (80-100); MONOCYTES # (AUTO) 0.7 K/uL (0.1-1.0); MONOCYTES % (AUTO) 11.4 % (2.0-9.0); NEUTROPHILS # (AUTO) 4.2 K/uL (1.8-7.7); NEUTROPHILS % (AUTO) 69.9 % (40.0-70.0); PLATELET COUNT (AUTO) 110 K/uL (150-450); RED BLOOD CELL COUNT(AUTO) 3.97 MIL/uL (4.50-5.90); RED CELL DISTRIBUTION WIDTH 13.8 % (11.5-14.5)
[2022-02-28 03:39] LABS: ANION GAP 3 mmol/L (8-16); CALCIUM, TOTAL 9.9 mg/dL (8.8-10.5); CARBON DIOXIDE 33 mmol/L (22-29); CHLORIDE 105 mmol/L (98-107); CREATININE 0.78 mg/dL (0.60-1.30); GLUCOSE,RANDOM 169 mg/dL (70-110); POTASSIUM 4.6 mmol/L (3.5-5.1); SODIUM SERUM 141 mmol/L (136-145); UREA NITROGEN, BLOOD 13 mg/dL (7-18)
[2022-02-28 03:40] LABS: GLOMERULAR FILTR. RATE CALC > 60 mL/min (>60)
[2022-02-28 03:45] LABS: ALANINE AMINOTRANSFERASE 57 U/L (12-78); ALBUMIN 3.9 g/dL (3.4-5.0); ALKALINE PHOSPHATASE 87 U/L (46-116); ASPARTATE AMINOTRANSFERASE 28 U/L (15-37); BILIRUBIN,TOTAL 0.6 mg/dL (0.1-1.0); CREATINE KINASE, TOTAL ONLY 72 U/L (39-308); PROTHROMBIN TIME 10.9 SEC (9.4-11.6); TOTAL PROTEIN, SERUM 8.3 g/dL (6.4-8.2)
[2022-02-28 03:52] LABS: B-TYPE NATRIURETIC PEPTIDE 7 pg/mL (0-100)
[2022-02-28 05:04] LABS: COVID AG,FIA SOURCE NASOPHARYNGEAL
[2022-02-28 05:11] LABS: APPEARANCE,URINE CLEAR (CLEAR); BILIRUBIN,URINE NEGATIVE (NEGATIVE); GLUCOSE, URINE (UA) >=1000 mg/dL (NEGATIVE); KETONES,URINE NEGATIVE (NEGATIVE); LEUKOCYTE ESTERASE ,URINE NEGATIVE (NEGATIVE); NITRATE,URINE NEGATIVE (NEGATIVE); OCCULT BLOOD,URINE NEGATIVE (NEGATIVE); PH,URINE 7.5 (5.0-8.0); PROTEIN,URINE NEGATIVE (NEGATIVE); SPECIFIC GRAVITIY, URINE 1.018 (1.003-1.030); UROBILINOGEN,URINE <=1.0 mg/dL (<=1.0)
[2022-02-28 05:14] LABS: AMPHET/METH SCREEN,URINE NEGATIVE (NEGATIVE); BARBITURATE SCREEN, URINE NEGATIVE (NEGATIVE); BENZODIAZEPINES SCREEN,URINE NEGATIVE (NEGATIVE); CANNABINOID SCREEN,URINE NEGATIVE (NEGATIVE); COCAINE SCREEN,URINE NEGATIVE (NEGATIVE); METHADONE SCREEN, URINE NEGATIVE (NEGATIVE); OPIATE SCREEN,URINE NEGATIVE (NEGATIVE)
[2022-02-28 05:15] LABS: PHENCYCLIDINE SCREEN,URINE NEGATIVE (NEGATIVE)
[2022-02-28 05:30] LABS: BACTERIA,URINE None Seen /HPF (None Seen); RBC,URINE None Seen /HPF (0-2); WBC,URINE None Seen /HPF (0-5)
[2022-02-28] MEDS ORDERED: ONDANSETRON HCL 4 MG/2 ML VIAL IVP PRN (05:45)
[2022-02-28 06:03] LABS: CHOL/HDL RATIO 2.7 (4.2-7.3); CHOLESTEROL 143 mg/dL (131-200); HDL CHOLESTEROL 53 mg/dL (40-60); LDL CHOL (CALC.) 65 mg/dL (0-130); TRIGLYCERIDES 127 mg/dL (15-150)
[2022-02-28 06:04] LABS: HEMOGLOBIN A1C 9.2 % (3.8-5.6)
[2022-02-28] MEDS ORDERED: SODIUM CHLORIDE 0.9% 1,000 ML ONE (06:27)
[2022-02-28] MEDS ORDERED: RINGERS SOLUTION,LACTATED 1,000 ML IV SCH (06:30)
[2022-02-28] MEDS ORDERED: DEXTROSE 50%-WATER 25 GM/50 ML SYRINGE IVP PRN (06:30)
[2022-02-28] MEDS: HEPARIN SODIUM,PORCINE 5,000 UNITS/ML VIAL SQ SCH ×3 (07:47→23:17)
[2022-02-28] MEDS: FERROUS SULFATE 325 MG EC TABLET PO SCH (07:47)
[2022-02-28] MEDS: ASPIRIN 81 MG CHEWABLE TABLET PO SCH (07:47)
[2022-02-28] MEDS: LEVOTHYROXINE SODIUM 100 MCG TABLET PO SCH (07:47)
[2022-02-28 07:56] LABS: GLUCOSE,POINT OF CARE 121 MG/DL (70-110)
[2022-02-28] MEDS: ARIPiprazole 15 MG TABLET PO SCH (08:27)
[2022-02-28] MEDS: CHOLECALCIFEROL (VIT D3) 5,000 [125 MCG] UNITS CAPSULE PO SCH (08:27)
[2022-02-28] MEDS: ATORVASTATIN CALCIUM 40 MG TABLET PO SCH (08:29)
[2022-02-28] MEDS ORDERED: LISINOPRIL 20 MG TABLET PO SCH (09:00)
[2022-02-28] MEDS: SODIUM CHLORIDE 0.9% 1,000 ML IV SCH ×3 (09:11→23:43)
[2022-02-28 13:36] LABS: GLUCOMETER DEV NAME(LOC) ERT.5; GLUCOSE,POINT OF CARE 172 MG/DL (70-110)
[2022-02-28] MEDS: INSULIN LISPRO 100 UNITS/ML SQ PRN ×2 (13:50→17:33)
[2022-02-28 17:46] LABS: GLUCOMETER DEV NAME(LOC) ERT.5; GLUCOSE,POINT OF CARE 210 MG/DL (70-110)
[2022-02-28 20:01] LABS: GLUCOMETER DEV NAME(LOC) ERT.5; GLUCOSE,POINT OF CARE 240 MG/DL (70-110)
[2022-02-28] MEDS ORDERED: ATORVASTATIN CALCIUM 10 MG TABLET PO SCH (21:00)
[2022-02-28 22:43] VITALS: BP 117/83
[2022-02-28] MEDS: GABAPENTIN 300 MG CAPSULE PO SCH (23:17)
[2022-02-28] MEDS: INSULIN GLARGINE,HUM.REC.ANLOG 100 UNITS/ML SQ SCH (23:19)
[2022-02-28] MEDS: ACETAMINOPHEN 325 MG TABLET PO PRN (23:26)
[2022-03-01 04:38] VITALS: BP 101/59
[2022-03-01] MEDS: LEVOTHYROXINE SODIUM 100 MCG TABLET PO SCH (06:04)
[2022-03-01] MEDS: INSULIN LISPRO 100 UNITS/ML SQ PRN ×4 (06:04→21:25)
[2022-03-01] MEDS: ACETAMINOPHEN 325 MG TABLET PO PRN ×2 (06:14→21:22)
[2022-03-01 06:57] LABS: GLUCOMETER DEV NAME(LOC) 5S.1B; GLUCOSE,POINT OF CARE 190 MG/DL (70-110)
[2022-03-01 06:57] LABS: GLUCOMETER DEV NAME(LOC) 5S.1B; GLUCOSE,POINT OF CARE 202 MG/DL (70-110)
[2022-03-01 07:41] VITALS: BP 104/54
[2022-03-01] MEDS: HEPARIN SODIUM,PORCINE 5,000 UNITS/ML VIAL SQ SCH ×3 (08:00→23:53)
[2022-03-01] MEDS: FERROUS SULFATE 325 MG EC TABLET PO SCH (09:14)
[2022-03-01] MEDS: ARIPiprazole 15 MG TABLET PO SCH (09:14)
[2022-03-01] MEDS: ASPIRIN 81 MG CHEWABLE TABLET PO SCH (09:14)
[2022-03-01] MEDS: CHOLECALCIFEROL (VIT D3) 5,000 [125 MCG] UNITS CAPSULE PO SCH (09:14)
[2022-03-01] MEDS: ATORVASTATIN CALCIUM 40 MG TABLET PO SCH (09:14)
[2022-03-01] MEDS: SODIUM CHLORIDE 0.9% 1,000 ML IV SCH (09:15)
[2022-03-01] MEDS ORDERED: ATOR10TA84 PO (10:04)
[2022-03-01] MEDS ORDERED: FERR325T27 PO (10:04)
[2022-03-01 12:11] LABS: GLUCOMETER DEV NAME(LOC) 5S.1B; GLUCOSE,POINT OF CARE 196 MG/DL (70-110)
[2022-03-01] MEDS ORDERED: SODIUM CHLORIDE 0.9% 1,000 ML IV ONE (13:00)
[2022-03-01 13:51] VITALS: BP 113/64
[2022-03-01 15:44] VITALS: BP 116/59
[2022-03-01 18:01] LABS: GLUCOMETER DEV NAME(LOC) 5N.1C; GLUCOSE,POINT OF CARE 165 MG/DL (70-110)
[2022-03-01 19:42] VITALS: BP 112/60
[2022-03-01 20:36] LABS: GLUCOMETER DEV NAME(LOC) 5S.1B; GLUCOSE,POINT OF CARE 194 MG/DL (70-110)
[2022-03-01] MEDS ORDERED: DiphenhydrAMINE HCL 25 MG CAPSULE PO ONE (21:15)
[2022-03-01] MEDS: GABAPENTIN 300 MG CAPSULE PO SCH (21:23)
[2022-03-01] MEDS: INSULIN GLARGINE,HUM.REC.ANLOG 100 UNITS/ML SQ SCH (21:25)
[2022-03-02 00:18] VITALS: BP 107/74
[2022-03-02 04:30] VITALS: BP 110/62
[2022-03-02] MEDS: LEVOTHYROXINE SODIUM 100 MCG TABLET PO SCH (05:51)
[2022-03-02 06:01] LABS: GLUCOMETER DEV NAME(LOC) 5N.1C; GLUCOSE,POINT OF CARE 183 MG/DL (70-110)
[2022-03-02] MEDS: INSULIN LISPRO 100 UNITS/ML SQ PRN ×3 (06:06→20:24)
[2022-03-02 07:22] LABS: EOSINOPHILS % (AUTO) 4.9 % (1.0-6.0); HEMOGLOBIN 12.6 g/dL (13.5-17.5); LYMPHOCYTES # (AUTO) 0.8 K/uL (1.0-4.8); LYMPHOCYTES % (AUTO) 17.6 % (22.0-44.0); MEAN CORPUSCULAR HEMOGLOBIN 32.2 pg (26.0-34.0); MEAN CORPUSCULAR HGB CONC 33.1 G/dL (31.0-37.0); MEAN CORPUSCULAR VOLUME 97 fL (80-100); MONOCYTES # (AUTO) 0.4 K/uL (0.1-1.0); MONOCYTES % (AUTO) 9.6 % (2.0-9.0); NEUTROPHILS % (AUTO) 66.9 % (40.0-70.0); PLATELET COUNT (AUTO) 95 K/uL (150-450); RED BLOOD CELL COUNT(AUTO) 3.91 MIL/uL (4.50-5.90)
[2022-03-02 07:27] LABS: ANION GAP 8 mmol/L (8-16); CALCIUM, TOTAL 9.6 mg/dL (8.8-10.5); CARBON DIOXIDE 29 mmol/L (22-29); CHLORIDE 105 mmol/L (98-107); CREATININE 0.62 mg/dL (0.60-1.30); GLUCOSE,RANDOM 199 mg/dL (70-110); POTASSIUM 4.4 mmol/L (3.5-5.1); SODIUM SERUM 142 mmol/L (136-145); UREA NITROGEN, BLOOD 12 mg/dL (7-18)
[2022-03-02 07:38] LABS: GLOMERULAR FILTR. RATE CALC > 60 mL/min (>60)
[2022-03-02] MEDS: HEPARIN SODIUM,PORCINE 5,000 UNITS/ML VIAL SQ SCH ×2 (09:31→16:00)
[2022-03-02] MEDS: CHOLECALCIFEROL (VIT D3) 5,000 [125 MCG] UNITS CAPSULE PO SCH (09:32)
[2022-03-02] MEDS: ARIPiprazole 15 MG TABLET PO SCH (09:32)
[2022-03-02] MEDS: ATORVASTATIN CALCIUM 40 MG TABLET PO SCH (09:32)
[2022-03-02] MEDS: FERROUS SULFATE 325 MG EC TABLET PO SCH (09:32)
[2022-03-02] MEDS: ASPIRIN 81 MG CHEWABLE TABLET PO SCH (09:32)
[2022-03-02 12:44] VITALS: BP 113/77
[2022-03-02] MEDS ORDERED: INSLAN SQ (14:19)
[2022-03-02] MEDS ORDERED: ASPI81 PO (14:19)
[2022-03-02] MEDS ORDERED: ATOR40TA71 PO (14:19)
[2022-03-02] MEDS ORDERED: LITH600C5 PO (14:19)
[2022-03-02] MEDS ORDERED: SYRI-590 SQ (14:19)
[2022-03-02] MEDS ORDERED: ARIP15TA27 PO (14:19)
[2022-03-02 18:56] LABS: GLUCOMETER DEV NAME(LOC) 5N.1C; GLUCOSE,POINT OF CARE 222 MG/DL (70-110)
[2022-03-02 19:15] VITALS: BP 131/78
[2022-03-02] MEDS: GABAPENTIN 300 MG CAPSULE PO SCH (20:22)
[2022-03-02] MEDS: INSULIN GLARGINE,HUM.REC.ANLOG 100 UNITS/ML SQ SCH (20:24)
[2022-03-03 06:07] LABS: GLUCOMETER DEV NAME(LOC) 5N.1C; GLUCOSE,POINT OF CARE 273 MG/DL (70-110)
[2022-03-03 11:31] LABS: GLUCOMETER DEV NAME(LOC) 3E.I 2; GLUCOSE,POINT OF CARE 404 MG/DL (70-110)
== END 2022-03-02 22:30 | DRG 917 ==
LOC: EMS 00:34 → 5S 20:15
PROVIDERS: ADMIT Internal Medicine; ATTEND Internal Medicine
DX: T56.891A Toxic effect of other metals, accidental (unintentional), initial encounter (principal); G92.8 Other toxic encephalopathy; F10.139 Alcohol abuse with withdrawal, unspecified; G45.9 Transient cerebral ischemic attack, unspecified; T43.595A Adverse effect of other antipsychotics and neuroleptics, initial encounter; E03.9 Hypothyroidism, unspecified; E11.65 Type 2 diabetes mellitus with hyperglycemia; E66.01 Morbid (severe) obesity due to excess calories; E78.00 Pure hypercholesterolemia, unspecified; F20.9 Schizophrenia, unspecified; F31.9 Bipolar disorder, unspecified; I10 Essential (primary) hypertension; F41.9 Anxiety disorder, unspecified; J44.9 Chronic obstructive pulmonary disease, unspecified; Z20.822 Contact with and (suspected) exposure to COVID-19; K74.60 Unspecified cirrhosis of liver; Z79.4 Long term (current) use of insulin; Z79.84 Long term (current) use of oral hypoglycemic drugs; Z79.899 Other long term (current) drug therapy; Z83.3 Family history of diabetes mellitus; Y92.89 Other specified places as the place of occurrence of the external cause; Z87.891 Personal history of nicotine dependence; Z79.82 Long term (current) use of aspirin
CPT/HCPCS: 70450; 70551; 71045; 80048; 80053; 80061; 80178; 81001; 81003; 82550; 82962; 83036; 83880; 84484; 85025; 85610; 85730; 92610; 93005; 97161; 97165; 99285; G0480; J1644; J1815; J7030; J7120; 36415-L1; 36415-TC

== ENCOUNTER 2022-03-02 21:38 | Inpatient (IN) | payer MEDICARE, MEDICAID ==
[~2022-03-02] VITALS: Ht 175.3 cm; Wt 114.3 kg
[~2022-03-02 21:38] MED LIST changes: +ASPI81 PO; -ATOR10TA69 PO; +ATOR10TA84 PO; +ATOR40TA71 PO; -FERR-72 PO; +FERR325T27 PO; +INSLAN SQ; +LITH600C5 PO; +SYRI-590 SQ
[2022-03-02] MEDS ORDERED: ZOLPIDEM TARTRATE 10 MG TABLET PO PRN (22:30)
[2022-03-02] MEDS ORDERED: DEXTROSE 50%-WATER 25 GM/50 ML SYRINGE IVP PRN (23:45)
[2022-03-03 00:28] VITALS: BP 144/91
[2022-03-03 01:05] VITALS: BP 151/81
[2022-03-03] MEDS: HALOPERIDOL 5 MG TABLET PO PRN (01:05)
[2022-03-03] MEDS: LORazepam 2 MG TABLET PO PRN (01:05)
[2022-03-03 05:26] LABS: GLUCOMETER DEV NAME(LOC) 3E.I 2; GLUCOSE,POINT OF CARE 245 MG/DL (70-110)
[2022-03-03] MEDS: FERROUS SULFATE 325 MG EC TABLET PO SCH (06:52)
[2022-03-03] MEDS: ASPIRIN 81 MG CHEWABLE TABLET PO SCH (06:52)
[2022-03-03] MEDS: LEVOTHYROXINE SODIUM 100 MCG TABLET PO SCH (06:52)
[2022-03-03] MEDS: INSULIN LISPRO 100 UNITS/ML SQ PRN ×4 (07:01→21:34)
[2022-03-03] MEDS: CHOLECALCIFEROL (VIT D3) 5,000 [125 MCG] UNITS CAPSULE PO SCH (09:14)
[2022-03-03] MEDS: ATORVASTATIN CALCIUM 40 MG TABLET PO SCH (09:14)
[2022-03-03 10:14] VITALS: BP 108/64
[2022-03-03 17:48] VITALS: BP 131/72
[2022-03-03 20:51] LABS: GLUCOMETER DEV NAME(LOC) 3E.I 2; GLUCOSE,POINT OF CARE 367 MG/DL (70-110)
[2022-03-03] MEDS: GABAPENTIN 300 MG CAPSULE PO SCH (21:30)
[2022-03-03] MEDS: INSULIN GLARGINE,HUM.REC.ANLOG 100 UNITS/ML SQ SCH (21:33)
[2022-03-04 06:01] LABS: GLUCOMETER DEV NAME(LOC) 3E.I 2; GLUCOSE,POINT OF CARE 259 MG/DL (70-110)
[2022-03-04] MEDS: LEVOTHYROXINE SODIUM 100 MCG TABLET PO SCH (06:22)
[2022-03-04] MEDS: ASPIRIN 81 MG CHEWABLE TABLET PO SCH (06:53)
[2022-03-04] MEDS: FERROUS SULFATE 325 MG EC TABLET PO SCH (06:53)
[2022-03-04] MEDS: INSULIN LISPRO 100 UNITS/ML SQ PRN ×4 (06:59→21:14)
[2022-03-04 09:03] VITALS: BP 142/87
[2022-03-04] MEDS: ATORVASTATIN CALCIUM 40 MG TABLET PO SCH (09:31)
[2022-03-04] MEDS: CHOLECALCIFEROL (VIT D3) 5,000 [125 MCG] UNITS CAPSULE PO SCH (09:31)
[2022-03-04 11:25] LABS: GLUCOMETER DEV NAME(LOC) 3E.I 2; GLUCOSE,POINT OF CARE 416 MG/DL (70-110)
[2022-03-04] MEDS ORDERED: DEXTROSE 50%-WATER 25 GM/50 ML SYRINGE IVP PRN (14:30)
[2022-03-04] MEDS ORDERED: INSULIN LISPRO 100 UNITS/ML SQ PRN ×2 (15:45)
[2022-03-04 16:20] VITALS: BP 158/89
[2022-03-04 17:31] LABS: GLUCOMETER DEV NAME(LOC) 3E.I 2; GLUCOSE,POINT OF CARE 338 MG/DL (70-110)
[2022-03-04] MEDS: GABAPENTIN 300 MG CAPSULE PO SCH (20:44)
[2022-03-04 20:56] LABS: GLUCOMETER DEV NAME(LOC) 3E.I 2; GLUCOSE,POINT OF CARE 313 MG/DL (70-110)
[2022-03-04] MEDS: INSULIN GLARGINE,HUM.REC.ANLOG 100 UNITS/ML SQ SCH (21:14)
[2022-03-05 05:31] LABS: GLUCOMETER DEV NAME(LOC) 3E.I 2; GLUCOSE,POINT OF CARE 278 MG/DL (70-110)
[2022-03-05] MEDS: LEVOTHYROXINE SODIUM 100 MCG TABLET PO SCH (06:28)
[2022-03-05] MEDS: ASPIRIN 81 MG CHEWABLE TABLET PO SCH (06:44)
[2022-03-05] MEDS: FERROUS SULFATE 325 MG EC TABLET PO SCH (06:44)
[2022-03-05] MEDS: INSULIN LISPRO 100 UNITS/ML SQ PRN ×4 (06:45→20:53)
[2022-03-05 08:00] VITALS: BP 154/80
[2022-03-05] MEDS: ATORVASTATIN CALCIUM 40 MG TABLET PO SCH (09:03)
[2022-03-05] MEDS: CHOLECALCIFEROL (VIT D3) 5,000 [125 MCG] UNITS CAPSULE PO SCH (09:03)
[2022-03-05 11:52] LABS: GLUCOMETER DEV NAME(LOC) 3E.I 2; GLUCOSE,POINT OF CARE 358 MG/DL (70-110)
[2022-03-05 16:29] VITALS: BP 150/81
[2022-03-05 17:21] LABS: GLUCOMETER DEV NAME(LOC) 3E.I 2; GLUCOSE,POINT OF CARE 346 MG/DL (70-110)
[2022-03-05] MEDS: GABAPENTIN 300 MG CAPSULE PO SCH (20:51)
[2022-03-05] MEDS: INSULIN GLARGINE,HUM.REC.ANLOG 100 UNITS/ML SQ SCH (20:53)
[2022-03-05 21:16] LABS: GLUCOMETER DEV NAME(LOC) 3E.I 2; GLUCOSE,POINT OF CARE 356 MG/DL (70-110)
[2022-03-05] MEDS ORDERED: BENZOCAINE/MENTHOL LOZENGE PO PRN (21:30)
[2022-03-05] MEDS ORDERED: ACETAMINOPHEN 325 MG TABLET PO PRN (21:30)
[2022-03-05] MEDS ORDERED: ALBUTEROL SULFATE HFA 90 MCG/PUFF 8 GM INHALER IH PRN (21:30)
[2022-03-05] MEDS ORDERED: BACITRACIN 28 GM OINTMENT TP PRN (21:30)
[2022-03-05] MEDS ORDERED: CloNIDine HCL 0.1 MG TABLET PO PRN (21:30)
[2022-03-05] MEDS ORDERED: PETROLATUM,WHITE 28 GM JELLY TP PRN (21:30)
[2022-03-05] MEDS ORDERED: ONDANSETRON HCL 4 MG TABLET PO PRN (21:30)
[2022-03-05] MEDS ORDERED: LOPERAMIDE HCL 2 MG CAPSULE PO PRN (21:30)
[2022-03-05] MEDS ORDERED: IBUPROFEN 600 MG TABLET PO PRN (21:30)
[2022-03-05] MEDS ORDERED: MAG HYDROX/AL HYDROX/SIMETH ES 30 ML SUSPENSION UDCUP PO PRN (21:30)
[2022-03-05] MEDS ORDERED: MAGNESIUM HYDROXIDE SUSPENSION 30 ML UDCUP PO PRN (21:30)
[2022-03-06] MEDS: HALOPERIDOL 5 MG TABLET PO PRN ×2 (01:08→22:58)
[2022-03-06] MEDS: LORazepam 2 MG TABLET PO PRN ×2 (01:09→22:58)
[2022-03-06] MEDS: FERROUS SULFATE 325 MG EC TABLET PO SCH (07:01)
[2022-03-06] MEDS: LEVOTHYROXINE SODIUM 100 MCG TABLET PO SCH (07:01)
[2022-03-06] MEDS: ASPIRIN 81 MG CHEWABLE TABLET PO SCH (07:01)
[2022-03-06] MEDS: MetFORMIN HCL 500 MG TABLET PO SCH ×2 (07:03→17:26)
[2022-03-06] MEDS: INSULIN LISPRO 100 UNITS/ML SQ PRN ×4 (07:11→21:38)
[2022-03-06 07:20] LABS: GLUCOMETER DEV NAME(LOC) 3E.I 2; GLUCOSE,POINT OF CARE 275 MG/DL (70-110)
[2022-03-06 08:32] LABS: COVID AG,FIA SOURCE NASAL SWAB
[2022-03-06 08:46] VITALS: BP 174/96
[2022-03-06] MEDS: OMEPRAZOLE 20 MG CAPSULE PO SCH (08:47)
[2022-03-06] MEDS: DOCUSATE SODIUM 100 MG CAPSULE PO SCH (08:47)
[2022-03-06] MEDS: ATORVASTATIN CALCIUM 40 MG TABLET PO SCH (08:47)
[2022-03-06] MEDS: LISINOPRIL 10 MG TABLET PO SCH (08:47)
[2022-03-06] MEDS: CHOLECALCIFEROL (VIT D3) 5,000 [125 MCG] UNITS CAPSULE PO SCH (08:47)
[2022-03-06] MEDS: INSULIN GLARGINE,HUM.REC.ANLOG 100 UNITS/ML SQ SCH ×2 (09:29→17:20)
[2022-03-06 12:05] LABS: GLUCOMETER DEV NAME(LOC) 3EX.2; GLUCOSE,POINT OF CARE 325 MG/DL (70-110)
[2022-03-06 16:00] VITALS: BP 157/86
[2022-03-06 17:41] LABS: GLUCOMETER DEV NAME(LOC) 3EX.2; GLUCOSE,POINT OF CARE 352 MG/DL (70-110)
[2022-03-06] MEDS: GABAPENTIN 300 MG CAPSULE PO SCH (20:01)
[2022-03-06 20:21] LABS: GLUCOMETER DEV NAME(LOC) 3E.I 2; GLUCOSE,POINT OF CARE 311 MG/DL (70-110)
[2022-03-06 22:58] VITALS: BP 147/88
[2022-03-06 23:58] VITALS: BP 133/74
[2022-03-07 06:26] LABS: GLUCOMETER DEV NAME(LOC) 3E.I 2; GLUCOSE,POINT OF CARE 267 MG/DL (70-110)
[2022-03-07] MEDS: FERROUS SULFATE 325 MG EC TABLET PO SCH (06:42)
[2022-03-07] MEDS: LEVOTHYROXINE SODIUM 100 MCG TABLET PO SCH (06:42)
[2022-03-07] MEDS: ASPIRIN 81 MG CHEWABLE TABLET PO SCH (06:42)
[2022-03-07] MEDS: MetFORMIN HCL 500 MG TABLET PO SCH ×2 (06:43→16:34)
[2022-03-07] MEDS: INSULIN LISPRO 100 UNITS/ML SQ PRN ×4 (06:49→21:05)
[2022-03-07 07:48] LABS: HEMOGLOBIN A1C 9.1 % (3.8-5.6)
[2022-03-07 07:53] LABS: ALANINE AMINOTRANSFERASE 83 U/L (12-78); ALBUMIN 3.4 g/dL (3.4-5.0); ALKALINE PHOSPHATASE 92 U/L (46-116); ANION GAP 5 mmol/L (8-16); ASPARTATE AMINOTRANSFERASE 37 U/L (15-37); BILIRUBIN,TOTAL 0.3 mg/dL (0.1-1.0); CALCIUM, TOTAL 8.7 mg/dL (8.8-10.5); CARBON DIOXIDE 31 mmol/L (22-29); CHLORIDE 101 mmol/L (98-107); CHOL/HDL RATIO 2.2 (4.2-7.3); CHOLESTEROL 111 mg/dL (131-200); GLUCOSE,RANDOM 335 mg/dL (70-110); HDL CHOLESTEROL 50 mg/dL (40-60); LDL CHOL (CALC.) 45 mg/dL (0-130); POTASSIUM 3.9 mmol/L (3.5-5.1); SODIUM SERUM 137 mmol/L (136-145); TOTAL PROTEIN, SERUM 7.3 g/dL (6.4-8.2); TRIGLYCERIDES 79 mg/dL (15-150); UREA NITROGEN, BLOOD 10 mg/dL (7-18)
[2022-03-07 07:54] LABS: GLOMERULAR FILTR. RATE CALC > 60 mL/min (>60)
[2022-03-07 08:00] VITALS: BP 119/61
[2022-03-07] MEDS: CHOLECALCIFEROL (VIT D3) 5,000 [125 MCG] UNITS CAPSULE PO SCH (08:29)
[2022-03-07] MEDS: DOCUSATE SODIUM 100 MG CAPSULE PO SCH (08:30)
[2022-03-07] MEDS: ATORVASTATIN CALCIUM 40 MG TABLET PO SCH (08:30)
[2022-03-07] MEDS: OMEPRAZOLE 20 MG CAPSULE PO SCH (08:30)
[2022-03-07] MEDS: LISINOPRIL 10 MG TABLET PO SCH (08:30)
[2022-03-07] MEDS: INSULIN GLARGINE,HUM.REC.ANLOG 100 UNITS/ML SQ SCH ×2 (08:35→17:30)
[2022-03-07 10:25] LABS: GLUCOMETER DEV NAME(LOC) 3E.I 2; GLUCOSE,POINT OF CARE 292 MG/DL (70-110)
[2022-03-07 11:36] LABS: GLUCOMETER DEV NAME(LOC) 3E.I 2; GLUCOSE,POINT OF CARE 316 MG/DL (70-110)
[2022-03-07 16:00] VITALS: BP 115/58
[2022-03-07 17:40] LABS: GLUCOMETER DEV NAME(LOC) 3E.I 2; GLUCOSE,POINT OF CARE 332 MG/DL (70-110)
[2022-03-07] MEDS: GABAPENTIN 300 MG CAPSULE PO SCH (20:51)
[2022-03-07] MEDS: HALOPERIDOL 5 MG TABLET PO PRN (20:51)
[2022-03-07] MEDS: LORazepam 2 MG TABLET PO PRN (20:51)
[2022-03-07 20:56] LABS: GLUCOMETER DEV NAME(LOC) 3E.I 2; GLUCOSE,POINT OF CARE 385 MG/DL (70-110)
[2022-03-08 06:27] LABS: GLUCOMETER DEV NAME(LOC) 3E.I 2; GLUCOSE,POINT OF CARE 234 MG/DL (70-110)
[2022-03-08] MEDS: FERROUS SULFATE 325 MG EC TABLET PO SCH (06:34)
[2022-03-08] MEDS: LEVOTHYROXINE SODIUM 100 MCG TABLET PO SCH (06:34)
[2022-03-08] MEDS: MetFORMIN HCL 500 MG TABLET PO SCH ×2 (06:34→17:52)
[2022-03-08] MEDS: ASPIRIN 81 MG CHEWABLE TABLET PO SCH (06:34)
[2022-03-08] MEDS: INSULIN LISPRO 100 UNITS/ML SQ PRN ×3 (06:50→17:59)
[2022-03-08] MEDS: DOCUSATE SODIUM 100 MG CAPSULE PO SCH (09:06)
[2022-03-08] MEDS: LISINOPRIL 10 MG TABLET PO SCH (09:06)
[2022-03-08] MEDS: ATORVASTATIN CALCIUM 40 MG TABLET PO SCH (09:06)
[2022-03-08] MEDS: OMEPRAZOLE 20 MG CAPSULE PO SCH (09:06)
[2022-03-08] MEDS: CHOLECALCIFEROL (VIT D3) 5,000 [125 MCG] UNITS CAPSULE PO SCH (09:06)
[2022-03-08] MEDS: INSULIN GLARGINE,HUM.REC.ANLOG 100 UNITS/ML SQ SCH ×2 (09:16→17:55)
[2022-03-08 09:57] VITALS: BP 147/89
[2022-03-08 11:40] LABS: GLUCOMETER DEV NAME(LOC) 3E.I 2; GLUCOSE,POINT OF CARE 254 MG/DL (70-110)
[2022-03-08 16:00] VITALS: BP 137/74
[2022-03-08 16:21] LABS: GLUCOMETER DEV NAME(LOC) 3E.I 2; GLUCOSE,POINT OF CARE 292 MG/DL (70-110)
[2022-03-08] MEDS: GABAPENTIN 300 MG CAPSULE PO SCH (20:44)
[2022-03-08] MEDS: HALOPERIDOL 5 MG TABLET PO PRN (20:44)
[2022-03-08] MEDS: LORazepam 2 MG TABLET PO PRN (20:44)
[2022-03-08 20:47] LABS: GLUCOMETER DEV NAME(LOC) 3E.I 2; GLUCOSE,POINT OF CARE 306 MG/DL (70-110)
[2022-03-09 05:37] LABS: GLUCOMETER DEV NAME(LOC) 3E.I 2; GLUCOSE,POINT OF CARE 226 MG/DL (70-110)
[2022-03-09] MEDS: LEVOTHYROXINE SODIUM 100 MCG TABLET PO SCH (06:15)
[2022-03-09] MEDS: ASPIRIN 81 MG CHEWABLE TABLET PO SCH (06:16)
[2022-03-09] MEDS: FERROUS SULFATE 325 MG EC TABLET PO SCH (06:16)
[2022-03-09] MEDS: MetFORMIN HCL 500 MG TABLET PO SCH (06:16)
[2022-03-09] MEDS: DOCUSATE SODIUM 100 MG CAPSULE PO SCH (09:00)
[2022-03-09] MEDS: LISINOPRIL 10 MG TABLET PO SCH (09:11)
[2022-03-09] MEDS: ATORVASTATIN CALCIUM 40 MG TABLET PO SCH (09:11)
[2022-03-09] MEDS: OMEPRAZOLE 20 MG CAPSULE PO SCH (09:11)
[2022-03-09] MEDS: CHOLECALCIFEROL (VIT D3) 5,000 [125 MCG] UNITS CAPSULE PO SCH (09:12)
[2022-03-09] MEDS: INSULIN GLARGINE,HUM.REC.ANLOG 100 UNITS/ML SQ SCH (09:15)
[2022-03-09] MEDS ORDERED: LISI-893 PO (10:37)
[2022-03-09] MEDS ORDERED: DOCU-385 PO (10:37)
[2022-03-09] MEDS ORDERED: METF-1211 PO (10:37)
[2022-03-09] MEDS ORDERED: OMEP20 PO (10:37)
[2022-03-09] MEDS ORDERED: ASPI-1450 PO (11:01)
[2022-03-09] MEDS ORDERED: CHOL500013 PO (11:01)
[2022-03-09] MEDS ORDERED: ATOR40TA28 PO (11:01)
[2022-03-09] MEDS ORDERED: FERR325T27 PO (11:01)
[2022-03-09] MEDS ORDERED: GABA-1181 PO (11:01)
[2022-03-09] MEDS ORDERED: LEVO50 PO (11:01)
[2022-03-09] MEDS: INSULIN LISPRO 100 UNITS/ML SQ PRN (12:12)
[2022-03-09 12:21] LABS: GLUCOMETER DEV NAME(LOC) 3E.I 2; GLUCOSE,POINT OF CARE 261 MG/DL (70-110)
== END 2022-03-09 13:00 | disposition home or self-care (01) | DRG 885 ==
LOC: 3EI 22:40 → UNDOADMIN 23:27
PROVIDERS: ADMIT Psychiatry & Neurology Psychiatry; ATTEND Psychiatry & Neurology Psychiatry
DX: F25.9 Schizoaffective disorder, unspecified (principal); E03.9 Hypothyroidism, unspecified; E11.9 Type 2 diabetes mellitus without complications; Z20.822 Contact with and (suspected) exposure to COVID-19; E66.9 Obesity, unspecified; E78.00 Pure hypercholesterolemia, unspecified; F41.9 Anxiety disorder, unspecified; G47.33 Obstructive sleep apnea (adult) (pediatric); I10 Essential (primary) hypertension; J44.9 Chronic obstructive pulmonary disease, unspecified; K59.00 Constipation, unspecified; K74.60 Unspecified cirrhosis of liver; Z59.00 Homelessness unspecified; Z68.37 Body mass index [BMI] 37.0-37.9, adult
CPT/HCPCS: 80053; 80061; 82962; 83036; 87081; 94660; J1815

== ENCOUNTER 2022-07-18 07:54 | Inpatient (IN) | payer OTHER, MEDICAID ==
[~2022-07-18] VITALS: Ht 170.2 cm; Wt 99.4 kg
[~2022-07-18 07:54] MED LIST changes: -ARIP15TA27 PO; +ASPI-1450 PO; -ASPI81 PO; -ATOR10TA84 PO; +ATOR40TA28 PO; -ATOR40TA71 PO; +DOCU-385 PO; -INSLAN SQ; -LEVO100 PO; +LEVO50 PO; +LISI-893 PO; -LISI-894 PO; -LITH300T PO; -LITH600C5 PO; +OMEP20 PO; -SYRI-590 SQ
[2022-07-18 08:33] LABS: COVID AG,FIA SOURCE NASAL SWAB
[2022-07-18 08:40] LABS: BASOPHILS % (AUTO) 0.6 % (0.0-2.0); HEMATOCRIT 27.6 % (41-53); HEMOGLOBIN 9.4 g/dL (13.5-17.5); LYMPHOCYTES # (AUTO) 0.6 K/uL (1.0-4.8); LYMPHOCYTES % (AUTO) 9.6 % (22.0-44.0); MEAN CORPUSCULAR HEMOGLOBIN 30.9 pg (26.0-34.0); MEAN CORPUSCULAR VOLUME 91 fL (80-100); MONOCYTES # (AUTO) 0.6 K/uL (0.1-1.0); MONOCYTES % (AUTO) 9.1 % (2.0-9.0); NEUTROPHILS # (AUTO) 5.3 K/uL (1.8-7.7); NEUTROPHILS % (AUTO) 79.7 % (40.0-70.0); PLATELET COUNT (AUTO) 96 K/uL (150-450); RED BLOOD CELL COUNT(AUTO) 3.04 MIL/uL (4.50-5.90); RED CELL DISTRIBUTION WIDTH 14.5 % (11.5-14.5)
[2022-07-18 08:44] LABS: ANION GAP 5 mmol/L (8-16); CALCIUM, TOTAL 8.7 mg/dL (8.8-10.5); CARBON DIOXIDE 27 mmol/L (22-29); CHLORIDE 104 mmol/L (98-107); CREATININE 0.87 mg/dL (0.60-1.30); GLOMERULAR FILTR. RATE CALC > 60 mL/min (>60); GLUCOSE,RANDOM 111 mg/dL (70-110); POTASSIUM 3.7 mmol/L (3.5-5.1); SODIUM SERUM 136 mmol/L (136-145); UREA NITROGEN, BLOOD 19 mg/dL (7-18)
[2022-07-18 08:50] LABS: ALANINE AMINOTRANSFERASE 41 U/L (12-78); ALBUMIN 3.8 g/dL (3.4-5.0); ALKALINE PHOSPHATASE 124 U/L (46-116); ASPARTATE AMINOTRANSFERASE 22 U/L (15-37); BILIRUBIN,TOTAL 0.8 mg/dL (0.1-1.0); TOTAL PROTEIN, SERUM 8.1 g/dL (6.4-8.2)
[2022-07-18 13:01] LABS: AMPHET/METH SCREEN,URINE NEGATIVE (NEGATIVE); BARBITURATE SCREEN, URINE NEGATIVE (NEGATIVE); BENZODIAZEPINES SCREEN,URINE NEGATIVE (NEGATIVE); CANNABINOID SCREEN,URINE NEGATIVE (NEGATIVE); COCAINE SCREEN,URINE NEGATIVE (NEGATIVE); METHADONE SCREEN, URINE NEGATIVE (NEGATIVE); OPIATE SCREEN,URINE NEGATIVE (NEGATIVE); PHENCYCLIDINE SCREEN,URINE NEGATIVE (NEGATIVE)
[2022-07-18 15:13] VITALS: BP 114/95
[2022-07-18] MEDS ORDERED: ALBUTEROL SULFATE HFA 90 MCG/PUFF 8 GM INHALER IH PRN (20:00)
[2022-07-18] MEDS ORDERED: DEXTROSE 50%-WATER 25 GM/50 ML SYRINGE IVP PRN (20:00)
[2022-07-18] MEDS: ATORVASTATIN CALCIUM 40 MG TABLET PO SCH (21:11)
[2022-07-18] MEDS: INSULIN LISPRO 100 UNITS/ML SQ PRN (21:14)
[2022-07-18 21:28] LABS: GLUCOMETER DEV NAME(LOC) 3EX.2; GLUCOSE,POINT OF CARE 115 MG/DL (70-110)
[2022-07-19] MEDS ORDERED: CloNIDine HCL 0.1 MG TABLET PO PRN (05:00)
[2022-07-19] MEDS ORDERED: LOPERAMIDE HCL 2 MG CAPSULE PO PRN (05:00)
[2022-07-19] MEDS ORDERED: BACITRACIN 28 GM OINTMENT TP PRN (05:00)
[2022-07-19] MEDS ORDERED: OMEPRAZOLE 20 MG CAPSULE PO PRN (05:00)
[2022-07-19] MEDS ORDERED: PETROLATUM,WHITE 28 GM JELLY TP PRN (05:00)
[2022-07-19] MEDS ORDERED: ALBUTEROL SULFATE HFA 90 MCG/PUFF 8 GM INHALER IH PRN (05:00)
[2022-07-19] MEDS ORDERED: DOCUSATE SODIUM 100 MG CAPSULE PO PRN (05:00)
[2022-07-19] MEDS ORDERED: BENZOCAINE/MENTHOL LOZENGE PO PRN (05:00)
[2022-07-19] MEDS ORDERED: IBUPROFEN 600 MG TABLET PO PRN (05:00)
[2022-07-19] MEDS ORDERED: MAGNESIUM HYDROXIDE SUSPENSION 30 ML UDCUP PO PRN (05:00)
[2022-07-19] MEDS ORDERED: MAG HYDROX/AL HYDROX/SIMETH ES 30 ML SUSPENSION UDCUP PO PRN (05:00)
[2022-07-19] MEDS ORDERED: ONDANSETRON HCL 4 MG TABLET PO PRN (05:00)
[2022-07-19] MEDS ORDERED: ACETAMINOPHEN 325 MG TABLET PO PRN (05:00)
[2022-07-19 05:47] LABS: GLUCOMETER DEV NAME(LOC) 3EX.2; GLUCOSE,POINT OF CARE 101 MG/DL (70-110)
[2022-07-19] MEDS: INSULIN LISPRO 100 UNITS/ML SQ PRN ×3 (06:19→21:22)
[2022-07-19] MEDS: LEVOTHYROXINE SODIUM 75 MCG TABLET PO SCH (06:19)
[2022-07-19] MEDS: MetFORMIN HCL 500 MG TABLET PO SCH ×2 (06:34→17:30)
[2022-07-19 08:45] VITALS: BP 149/84
[2022-07-19] MEDS: LISINOPRIL 20 MG TABLET PO SCH (09:00)
[2022-07-19] MEDS: MULTIVITAMINS WITH MINERALS, THERAPEUTIC TABLET PO SCH (09:00)
[2022-07-19 12:03] LABS: GLUCOMETER DEV NAME(LOC) 3EX.2; GLUCOSE,POINT OF CARE 81 MG/DL (70-110)
[2022-07-19] MEDS: LORazepam 2 MG TABLET PO PRN (12:41)
[2022-07-19] MEDS ORDERED: HALOPERIDOL LACTATE 5 MG/ML VIAL ONE (14:44)
[2022-07-19] MEDS ORDERED: LORazepam 2 MG/ML VIAL ONE (14:44)
[2022-07-19] MEDS ORDERED: DiphenhydrAMINE HCL 50 MG/ML VIAL ONE (14:44)
[2022-07-19] MEDS ORDERED: HALOPERIDOL LACTATE 5 MG/ML VIAL IM ONE (14:45)
[2022-07-19] MEDS ORDERED: DiphenhydrAMINE HCL 50 MG/ML VIAL IM ONE (14:45)
[2022-07-19] MEDS ORDERED: LORazepam 2 MG/ML VIAL IM ONE (14:45)
[2022-07-19 16:00] VITALS: BP 121/80
[2022-07-19 16:18] LABS: GLUCOMETER DEV NAME(LOC) 3EX.2; GLUCOSE,POINT OF CARE 97 MG/DL (70-110)
[2022-07-19 20:41] LABS: COVID AG,FIA SOURCE NASAL SWAB
[2022-07-19 20:48] LABS: GLUCOMETER DEV NAME(LOC) 3EX.2; GLUCOSE,POINT OF CARE 120 MG/DL (70-110)
[2022-07-19] MEDS: ATORVASTATIN CALCIUM 40 MG TABLET PO SCH (21:00)
[2022-07-20 05:53] LABS: GLUCOMETER DEV NAME(LOC) 3EX.2; GLUCOSE,POINT OF CARE 133 MG/DL (70-110)
[2022-07-20] MEDS: LEVOTHYROXINE SODIUM 75 MCG TABLET PO SCH (06:31)
[2022-07-20] MEDS: INSULIN LISPRO 100 UNITS/ML SQ PRN ×2 (06:32→21:02)
[2022-07-20] MEDS: MetFORMIN HCL 500 MG TABLET PO SCH ×2 (06:33→17:30)
[2022-07-20] MEDS: LISINOPRIL 20 MG TABLET PO SCH (08:41)
[2022-07-20] MEDS: MULTIVITAMINS WITH MINERALS, THERAPEUTIC TABLET PO SCH (08:41)
[2022-07-20 08:50] VITALS: BP 130/74
[2022-07-20 11:21] LABS: GLUCOMETER DEV NAME(LOC) 3E.I 2; GLUCOSE,POINT OF CARE 91 MG/DL (70-110)
[2022-07-20 16:01] LABS: GLUCOMETER DEV NAME(LOC) 3EX.2; GLUCOSE,POINT OF CARE 131 MG/DL (70-110)
[2022-07-20] MEDS ORDERED: LORazepam 2 MG/ML VIAL ONE (16:49)
[2022-07-20] MEDS ORDERED: HALOPERIDOL LACTATE 5 MG/ML VIAL ONE (16:49)
[2022-07-20] MEDS ORDERED: HALOPERIDOL LACTATE 5 MG/ML VIAL IM ONE (17:00)
[2022-07-20] MEDS ORDERED: LORazepam 2 MG/ML VIAL IM ONE (17:00)
[2022-07-20 17:38] VITALS: BP 122/59
[2022-07-20] MEDS: ATORVASTATIN CALCIUM 40 MG TABLET PO SCH (20:20)
[2022-07-20 20:40] LABS: GLUCOMETER DEV NAME(LOC) 3EX.2; GLUCOSE,POINT OF CARE 118 MG/DL (70-110)
[2022-07-21] MEDS: HALOPERIDOL 5 MG TABLET PO PRN ×2 (01:29→08:51)
[2022-07-21] MEDS: LORazepam 2 MG TABLET PO PRN ×2 (01:29→08:51)
[2022-07-21 05:40] LABS: GLUCOMETER DEV NAME(LOC) 3E.I 2; GLUCOSE,POINT OF CARE 98 MG/DL (70-110)
[2022-07-21 05:46] LABS: BASOPHILS % (AUTO) 0.7 % (0.0-2.0); EOSINOPHILS % (AUTO) 6.2 % (1.0-6.0); HEMATOCRIT 25.1 % (41-53); HEMOGLOBIN 8.7 g/dL (13.5-17.5); LYMPHOCYTES # (AUTO) 0.7 K/uL (1.0-4.8); LYMPHOCYTES % (AUTO) 17.5 % (22.0-44.0); MEAN CORPUSCULAR HEMOGLOBIN 31.7 pg (26.0-34.0); MEAN CORPUSCULAR HGB CONC 34.7 G/dL (31.0-37.0); MEAN CORPUSCULAR VOLUME 91 fL (80-100); MONOCYTES # (AUTO) 0.5 K/uL (0.1-1.0); MONOCYTES % (AUTO) 12.6 % (2.0-9.0); NEUTROPHILS # (AUTO) 2.6 K/uL (1.8-7.7); PLATELET COUNT (AUTO) 102 K/uL (150-450); RED BLOOD CELL COUNT(AUTO) 2.75 MIL/uL (4.50-5.90); RED CELL DISTRIBUTION WIDTH 14.4 % (11.5-14.5)
[2022-07-21 06:04] LABS: ALANINE AMINOTRANSFERASE 29 U/L (12-78); ALBUMIN 3.1 g/dL (3.4-5.0); ALKALINE PHOSPHATASE 101 U/L (46-116); ANION GAP 9 mmol/L (8-16); ASPARTATE AMINOTRANSFERASE 20 U/L (15-37); BILIRUBIN,TOTAL 0.4 mg/dL (0.1-1.0); CALCIUM, TOTAL 8.4 mg/dL (8.8-10.5); CARBON DIOXIDE 27 mmol/L (22-29); CHLORIDE 108 mmol/L (98-107); CREATININE 0.68 mg/dL (0.60-1.30); GLUCOSE,RANDOM 100 mg/dL (70-110); POTASSIUM 4.1 mmol/L (3.5-5.1); SODIUM SERUM 144 mmol/L (136-145); TOTAL PROTEIN, SERUM 6.9 g/dL (6.4-8.2); UREA NITROGEN, BLOOD 16 mg/dL (7-18)
[2022-07-21] MEDS: INSULIN LISPRO 100 UNITS/ML SQ PRN ×2 (06:35→21:46)
[2022-07-21] MEDS: LEVOTHYROXINE SODIUM 75 MCG TABLET PO SCH (06:35)
[2022-07-21] MEDS: MetFORMIN HCL 500 MG TABLET PO SCH ×2 (06:36→19:05)
[2022-07-21 07:09] LABS: GLOMERULAR FILTR. RATE CALC > 60 mL/min (>60)
[2022-07-21] MEDS: LISINOPRIL 20 MG TABLET PO SCH (08:51)
[2022-07-21] MEDS: MULTIVITAMINS WITH MINERALS, THERAPEUTIC TABLET PO SCH (08:51)
[2022-07-21 10:48] VITALS: BP 128/77
[2022-07-21 11:56] LABS: GLUCOMETER DEV NAME(LOC) 3EX.2; GLUCOSE,POINT OF CARE 125 MG/DL (70-110)
[2022-07-21] MEDS ORDERED: LORazepam 2 MG/ML VIAL ONE (14:35)
[2022-07-21] MEDS ORDERED: HALOPERIDOL LACTATE 5 MG/ML VIAL ONE (14:36)
[2022-07-21] MEDS ORDERED: HALOPERIDOL LACTATE 5 MG/ML VIAL IM ONE (14:45)
[2022-07-21] MEDS ORDERED: LORazepam 2 MG/ML VIAL IM ONE (14:45)
[2022-07-21 17:26] LABS: GLUCOMETER DEV NAME(LOC) 3EX.2; GLUCOSE,POINT OF CARE 104 MG/DL (70-110)
[2022-07-21 20:46] LABS: GLUCOMETER DEV NAME(LOC) 3EX.2; GLUCOSE,POINT OF CARE 139 MG/DL (70-110)
[2022-07-21] MEDS: ATORVASTATIN CALCIUM 40 MG TABLET PO SCH (21:17)
[2022-07-22 02:11] VITALS: BP 119/64
[2022-07-22] MEDS: LORazepam 2 MG TABLET PO PRN ×3 (02:14→13:03)
[2022-07-22 06:06] LABS: GLUCOMETER DEV NAME(LOC) 3EX.2; GLUCOSE,POINT OF CARE 93 MG/DL (70-110)
[2022-07-22] MEDS: INSULIN LISPRO 100 UNITS/ML SQ PRN (06:33)
[2022-07-22] MEDS: LEVOTHYROXINE SODIUM 75 MCG TABLET PO SCH (06:34)
[2022-07-22] MEDS: MetFORMIN HCL 500 MG TABLET PO SCH ×2 (06:43→16:30)
[2022-07-22] MEDS: LISINOPRIL 20 MG TABLET PO SCH (08:26)
[2022-07-22] MEDS: MULTIVITAMINS WITH MINERALS, THERAPEUTIC TABLET PO SCH (08:26)
[2022-07-22 08:27] VITALS: BP 119/60
[2022-07-22 09:33] VITALS: BP 108/57
[2022-07-22 11:31] LABS: GLUCOMETER DEV NAME(LOC) 3EX.2; GLUCOSE,POINT OF CARE 111 MG/DL (70-110)
[2022-07-22 13:03] VITALS: BP 111/61
[2022-07-22 16:02] VITALS: BP 117/68
[2022-07-22 16:06] LABS: GLUCOMETER DEV NAME(LOC) 3EX.2; GLUCOSE,POINT OF CARE 107 MG/DL (70-110)
[2022-07-22] MEDS: HALOPERIDOL 5 MG TABLET PO PRN (16:26)
[2022-07-22] MEDS: LITHIUM CARBONATE 300 MG CAPSULE PO SCH (16:30)
[2022-07-22 20:01] VITALS: BP 104/65
[2022-07-22 20:31] LABS: GLUCOMETER DEV NAME(LOC) 3EX.2; GLUCOSE,POINT OF CARE 100 MG/DL (70-110)
[2022-07-22] MEDS: ATORVASTATIN CALCIUM 40 MG TABLET PO SCH (20:33)
[2022-07-22] MEDS: HALOPERIDOL 10 MG TABLET PO SCH (20:33)
[2022-07-23 03:11] VITALS: BP 120/68
[2022-07-23] MEDS: LORazepam 2 MG TABLET PO PRN ×2 (03:11→09:09)
[2022-07-23] MEDS: HALOPERIDOL 5 MG TABLET PO PRN ×2 (03:11→09:09)
[2022-07-23] MEDS: MetFORMIN HCL 500 MG TABLET PO SCH ×2 (06:41→18:07)
[2022-07-23] MEDS: LEVOTHYROXINE SODIUM 75 MCG TABLET PO SCH (06:41)
[2022-07-23] MEDS: INSULIN LISPRO 100 UNITS/ML SQ PRN (06:46)
[2022-07-23 07:11] LABS: GLUCOMETER DEV NAME(LOC) 3EX.2; GLUCOSE,POINT OF CARE 103 MG/DL (70-110)
[2022-07-23 09:04] VITALS: BP 118/70
[2022-07-23] MEDS: MULTIVITAMINS WITH MINERALS, THERAPEUTIC TABLET PO SCH (09:06)
[2022-07-23] MEDS: LISINOPRIL 20 MG TABLET PO SCH (09:07)
[2022-07-23] MEDS: LITHIUM CARBONATE 300 MG CAPSULE PO SCH ×2 (09:07→18:07)
[2022-07-23 11:21] LABS: GLUCOMETER DEV NAME(LOC) 3EX.2; GLUCOSE,POINT OF CARE 104 MG/DL (70-110)
[2022-07-23] MEDS ORDERED: LORazepam 2 MG/ML VIAL ONE (13:22)
[2022-07-23] MEDS ORDERED: DiphenhydrAMINE HCL 50 MG/ML VIAL ONE (13:22)
[2022-07-23] MEDS ORDERED: HALOPERIDOL LACTATE 5 MG/ML VIAL ONE (13:22)
[2022-07-23] MEDS ORDERED: DiphenhydrAMINE HCL 50 MG/ML VIAL IM ONE (13:30)
[2022-07-23] MEDS ORDERED: LORazepam 2 MG/ML VIAL IM ONE (13:30)
[2022-07-23] MEDS ORDERED: HALOPERIDOL LACTATE 5 MG/ML VIAL IM ONE (13:30)
[2022-07-23 16:48] VITALS: BP 109/62
[2022-07-23 17:26] LABS: GLUCOMETER DEV NAME(LOC) 3E.I 2; GLUCOSE,POINT OF CARE 123 MG/DL (70-110)
[2022-07-23] MEDS: HALOPERIDOL 10 MG TABLET PO SCH (20:35)
[2022-07-23 20:36] LABS: GLUCOMETER DEV NAME(LOC) 3EX.2; GLUCOSE,POINT OF CARE 127 MG/DL (70-110)
[2022-07-23] MEDS: ATORVASTATIN CALCIUM 40 MG TABLET PO SCH (20:36)
[2022-07-23] MEDS: BENZTROPINE MESYLATE 2 MG TABLET PO SCH (20:36)
[2022-07-23 22:42] LABS: APPEARANCE,URINE CLEAR (CLEAR); BILIRUBIN,URINE NEGATIVE (NEGATIVE); GLUCOSE, URINE (UA) NEGATIVE (NEGATIVE); KETONES,URINE TRACE mg/dL (NEGATIVE); LEUKOCYTE ESTERASE ,URINE TRACE (NEGATIVE); NITRATE,URINE NEGATIVE (NEGATIVE); OCCULT BLOOD,URINE NEGATIVE (NEGATIVE); PROTEIN,URINE TRACE mg/dL (NEGATIVE); SPECIFIC GRAVITIY, URINE 1.022 (1.003-1.030); UROBILINOGEN,URINE <=1.0 mg/dL (<=1.0)
[2022-07-23 23:41] LABS: BACTERIA,URINE None Seen /HPF (None Seen); RBC,URINE 0-2 /HPF (0-2); SQUAMOUS EPITHELIAL CELL,UR None Seen /LPF (None Seen); WBC,URINE 0-2 /HPF (0-5)
[2022-07-24] MEDS: LORazepam 2 MG TABLET PO PRN (01:20)
[2022-07-24] MEDS: ZOLPIDEM TARTRATE 10 MG TABLET PO PRN ×2 (01:20→23:15)
[2022-07-24 05:51] LABS: GLUCOMETER DEV NAME(LOC) 3EX.2; GLUCOSE,POINT OF CARE 95 MG/DL (70-110)
[2022-07-24] MEDS: LEVOTHYROXINE SODIUM 75 MCG TABLET PO SCH (06:59)
[2022-07-24] MEDS: MetFORMIN HCL 500 MG TABLET PO SCH ×2 (06:59→17:34)
[2022-07-24] MEDS: LISINOPRIL 20 MG TABLET PO SCH (08:37)
[2022-07-24] MEDS: CEPHALEXIN MONOHYDRATE 500 MG CAPSULE PO SCH ×3 (08:37→16:24)
[2022-07-24] MEDS: MULTIVITAMINS WITH MINERALS, THERAPEUTIC TABLET PO SCH (08:37)
[2022-07-24] MEDS: LITHIUM CARBONATE 300 MG CAPSULE PO SCH ×2 (08:37→16:24)
[2022-07-24 10:51] VITALS: BP 118/54
[2022-07-24 11:56] LABS: GLUCOMETER DEV NAME(LOC) 3EX.2; GLUCOSE,POINT OF CARE 79 MG/DL (70-110)
[2022-07-24 16:04] VITALS: BP 122/70
[2022-07-24 17:26] LABS: GLUCOMETER DEV NAME(LOC) 3EX.2; GLUCOSE,POINT OF CARE 102 MG/DL (70-110)
[2022-07-24] MEDS: BENZTROPINE MESYLATE 2 MG TABLET PO SCH (20:43)
[2022-07-24] MEDS: ATORVASTATIN CALCIUM 40 MG TABLET PO SCH (20:43)
[2022-07-24] MEDS: HALOPERIDOL 10 MG TABLET PO SCH (20:44)
[2022-07-24 20:51] LABS: GLUCOMETER DEV NAME(LOC) 3EX.2; GLUCOSE,POINT OF CARE 126 MG/DL (70-110)
[2022-07-24 21:15] VITALS: BP 106/69
[2022-07-24] MEDS: INSULIN LISPRO 100 UNITS/ML SQ PRN (21:16)
[2022-07-25 02:30] VITALS: BP 101/51
[2022-07-25] MEDS: HALOPERIDOL 5 MG TABLET PO PRN ×2 (02:36→16:30)
[2022-07-25] MEDS: LORazepam 2 MG TABLET PO PRN ×3 (02:36→19:22)
[2022-07-25 06:11] LABS: GLUCOMETER DEV NAME(LOC) 3EX.2; GLUCOSE,POINT OF CARE 90 MG/DL (70-110)
[2022-07-25] MEDS: INSULIN LISPRO 100 UNITS/ML SQ PRN (06:35)
[2022-07-25] MEDS: MetFORMIN HCL 500 MG TABLET PO SCH ×2 (06:46→17:27)
[2022-07-25] MEDS: LEVOTHYROXINE SODIUM 75 MCG TABLET PO SCH (06:46)
[2022-07-25] MEDS: LISINOPRIL 20 MG TABLET PO SCH (08:24)
[2022-07-25] MEDS: MULTIVITAMINS WITH MINERALS, THERAPEUTIC TABLET PO SCH (08:24)
[2022-07-25] MEDS: LITHIUM CARBONATE 300 MG CAPSULE PO SCH ×2 (08:28→16:30)
[2022-07-25] MEDS: CEPHALEXIN MONOHYDRATE 500 MG CAPSULE PO SCH ×3 (08:29→17:27)
[2022-07-25 08:50] VITALS: BP 123/68
[2022-07-25 11:26] LABS: GLUCOMETER DEV NAME(LOC) 3E.I 2; GLUCOSE,POINT OF CARE 96 MG/DL (70-110)
[2022-07-25 16:03] VITALS: BP 110/58
[2022-07-25 17:07] LABS: GLUCOMETER DEV NAME(LOC) 3E.I 2; GLUCOSE,POINT OF CARE 87 MG/DL (70-110)
[2022-07-25] MEDS: LACTULOSE 20 GM/30 ML SOLUTION UDCUP PO SCH (18:42)
[2022-07-25 21:31] LABS: GLUCOMETER DEV NAME(LOC) 3EX.2; GLUCOSE,POINT OF CARE 91 MG/DL (70-110)
[2022-07-25] MEDS: BENZTROPINE MESYLATE 2 MG TABLET PO SCH (21:53)
[2022-07-25] MEDS: ATORVASTATIN CALCIUM 40 MG TABLET PO SCH (21:54)
[2022-07-25] MEDS: ZOLPIDEM TARTRATE 10 MG TABLET PO PRN (21:54)
[2022-07-25] MEDS: HALOPERIDOL 10 MG TABLET PO SCH (21:55)
[2022-07-26 05:46] LABS: GLUCOMETER DEV NAME(LOC) 3EX.2; GLUCOSE,POINT OF CARE 101 MG/DL (70-110)
[2022-07-26] MEDS: LEVOTHYROXINE SODIUM 75 MCG TABLET PO SCH (06:44)
[2022-07-26] MEDS: MetFORMIN HCL 500 MG TABLET PO SCH ×2 (06:44→17:09)
[2022-07-26 08:00] VITALS: BP 104/64
[2022-07-26] MEDS: CEPHALEXIN MONOHYDRATE 500 MG CAPSULE PO SCH ×3 (08:12→17:09)
[2022-07-26] MEDS: MULTIVITAMINS WITH MINERALS, THERAPEUTIC TABLET PO SCH (08:12)
[2022-07-26] MEDS: LORazepam 2 MG TABLET PO PRN ×3 (08:12→19:45)
[2022-07-26] MEDS: LACTULOSE 20 GM/30 ML SOLUTION UDCUP PO SCH ×3 (08:12→17:09)
[2022-07-26] MEDS: LISINOPRIL 20 MG TABLET PO SCH ×2 (08:12→08:19)
[2022-07-26] MEDS: LITHIUM CARBONATE 300 MG CAPSULE PO SCH ×2 (08:13→17:09)
[2022-07-26] MEDS: HALOPERIDOL 5 MG TABLET PO PRN ×2 (08:13→15:22)
[2022-07-26 16:00] VITALS: BP 147/78
[2022-07-26 17:12] LABS: GLUCOMETER DEV NAME(LOC) 3EX.2; GLUCOSE,POINT OF CARE 134 MG/DL (70-110)
[2022-07-26] MEDS ORDERED: LITH300C3 PO (20:21)
[2022-07-26] MEDS ORDERED: HALO10TA21 PO (20:21)
[2022-07-26] MEDS ORDERED: BENZ2TAB76 PO (20:21)
[2022-07-26 20:51] LABS: GLUCOMETER DEV NAME(LOC) 3EX.2; GLUCOSE,POINT OF CARE 101 MG/DL (70-110)
[2022-07-26] MEDS: HALOPERIDOL 10 MG TABLET PO SCH (21:19)
[2022-07-26] MEDS: ZOLPIDEM TARTRATE 10 MG TABLET PO PRN (21:19)
[2022-07-26] MEDS: BENZTROPINE MESYLATE 2 MG TABLET PO SCH (21:19)
[2022-07-26] MEDS: ATORVASTATIN CALCIUM 40 MG TABLET PO SCH (21:19)
[2022-07-27 04:02] VITALS: BP 111/64
[2022-07-27 06:06] LABS: GLUCOMETER DEV NAME(LOC) 3EX.2; GLUCOSE,POINT OF CARE 88 MG/DL (70-110)
[2022-07-27] MEDS: MetFORMIN HCL 500 MG TABLET PO SCH ×2 (06:24→17:49)
[2022-07-27 06:32] LABS: COVID AG,FIA SOURCE NASAL SWAB
[2022-07-27] MEDS: LEVOTHYROXINE SODIUM 75 MCG TABLET PO SCH (06:39)
[2022-07-27 08:48] VITALS: BP 136/81
[2022-07-27] MEDS ORDERED: LACT10SO10 PO (09:09)
[2022-07-27] MEDS ORDERED: CEPH-558 PO (09:11)
[2022-07-27] MEDS: LISINOPRIL 20 MG TABLET PO SCH (09:29)
[2022-07-27] MEDS: LITHIUM CARBONATE 300 MG CAPSULE PO SCH ×2 (09:29→17:48)
[2022-07-27] MEDS: LACTULOSE 20 GM/30 ML SOLUTION UDCUP PO SCH ×2 (09:29→17:48)
[2022-07-27] MEDS: MULTIVITAMINS WITH MINERALS, THERAPEUTIC TABLET PO SCH (09:29)
[2022-07-27] MEDS: CEPHALEXIN MONOHYDRATE 500 MG CAPSULE PO SCH ×3 (09:30→17:48)
[2022-07-27 11:16] LABS: GLUCOMETER DEV NAME(LOC) 3E.I 2; GLUCOSE,POINT OF CARE 144 MG/DL (70-110)
[2022-07-27] MEDS: INSULIN LISPRO 100 UNITS/ML SQ PRN (12:27)
[2022-07-27 16:17] VITALS: BP 98/60
[2022-07-27 17:21] LABS: GLUCOMETER DEV NAME(LOC) 3E.I 2; GLUCOSE,POINT OF CARE 137 MG/DL (70-110)
== END 2022-07-27 18:00 | DRG 885 ==
LOC: EMS 07:59 → 3EI 13:34
PROVIDERS: ADMIT Psychiatry & Neurology Psychiatry; ATTEND Psychiatry & Neurology Psychiatry
DX: F25.9 Schizoaffective disorder, unspecified (principal); E03.9 Hypothyroidism, unspecified; E11.9 Type 2 diabetes mellitus without complications; E66.9 Obesity, unspecified; Z68.34 Body mass index [BMI] 34.0-34.9, adult; E78.00 Pure hypercholesterolemia, unspecified; F41.9 Anxiety disorder, unspecified; Z20.822 Contact with and (suspected) exposure to COVID-19; G47.33 Obstructive sleep apnea (adult) (pediatric); I10 Essential (primary) hypertension; J44.9 Chronic obstructive pulmonary disease, unspecified; K59.00 Constipation, unspecified; K74.60 Unspecified cirrhosis of liver; F10.90 Alcohol use, unspecified, uncomplicated; Y90.9 Presence of alcohol in blood, level not specified; Z59.00 Homelessness unspecified; Z87.891 Personal history of nicotine dependence
CPT/HCPCS: 80053; 80178; 80307; 81001; 82140; 82962; 85025; 87081; 94660; 99285; G0480; J1200; J1630; J2060

== ENCOUNTER 2022-08-01 22:51 | Inpatient (IN) | payer OTHER, MEDICAID ==
[~2022-08-01] VITALS: Ht 172.7 cm; Wt 104.3 kg
[~2022-08-01 22:51] MED LIST changes: -ASPI-1450 PO; +BENZ2TAB76 PO; +CEPH-558 PO; -CHOL500013 PO; -DOCU-385 PO; -FERR325T27 PO; -GABA-1181 PO; +HALO10TA21 PO; +LACT10SO10 PO; +LITH300C3 PO; -OMEP20 PO
[2022-08-02] MEDS ORDERED: LORazepam 2 MG/ML VIAL IM ONE (03:15)
[2022-08-02] MEDS ORDERED: HALOPERIDOL LACTATE 5 MG/ML VIAL IM ONE (03:15)
[2022-08-02] MEDS ORDERED: ZIPRASIDONE MESYLATE 20 MG/VIAL IM ONE (06:00)
[2022-08-02 08:02] LABS: COVID AG,FIA SOURCE NASAL SWAB
[2022-08-02 09:25] VITALS: BP 146/80
[2022-08-02] MEDS ORDERED: ALBUTEROL SULFATE HFA 90 MCG/PUFF 8 GM INHALER IH PRN (10:15)
[2022-08-02] MEDS ORDERED: MAGNESIUM HYDROXIDE SUSPENSION 30 ML UDCUP PO PRN (10:15)
[2022-08-02] MEDS ORDERED: BACITRACIN 28 GM OINTMENT TP PRN (10:15)
[2022-08-02] MEDS ORDERED: PETROLATUM,WHITE 28 GM JELLY TP PRN (10:15)
[2022-08-02] MEDS ORDERED: LOPERAMIDE HCL 2 MG CAPSULE PO PRN (10:15)
[2022-08-02] MEDS ORDERED: BENZOCAINE/MENTHOL LOZENGE PO PRN (10:15)
[2022-08-02] MEDS ORDERED: ONDANSETRON HCL 4 MG TABLET PO PRN (10:15)
[2022-08-02] MEDS ORDERED: MAG HYDROX/AL HYDROX/SIMETH ES 30 ML SUSPENSION UDCUP PO PRN (10:15)
[2022-08-02] MEDS ORDERED: DOCUSATE SODIUM 100 MG CAPSULE PO PRN (10:15)
[2022-08-02] MEDS ORDERED: OMEPRAZOLE 20 MG CAPSULE PO PRN (10:15)
[2022-08-02] MEDS ORDERED: ACETAMINOPHEN 325 MG TABLET PO PRN (10:15)
[2022-08-02] MEDS ORDERED: CloNIDine HCL 0.1 MG TABLET PO PRN (10:15)
[2022-08-02] MEDS ORDERED: DEXTROSE 50%-WATER 25 GM/50 ML SYRINGE IVP PRN (11:00)
[2022-08-02] MEDS: LISINOPRIL 10 MG TABLET PO SCH (11:18)
[2022-08-02 12:21] LABS: GLUCOMETER DEV NAME(LOC) 3E.C; GLUCOSE,POINT OF CARE 103 MG/DL (70-110)
[2022-08-02 12:30] LABS: BASOPHILS % (AUTO) 0.5 % (0.0-2.0); EOSINOPHILS % (AUTO) 5.5 % (1.0-6.0); HEMOGLOBIN 9.7 g/dL (13.5-17.5); LYMPHOCYTES # (AUTO) 0.7 K/uL (1.0-4.8); LYMPHOCYTES % (AUTO) 13.3 % (22.0-44.0); MEAN CORPUSCULAR HEMOGLOBIN 31.2 pg (26.0-34.0); MEAN CORPUSCULAR HGB CONC 33.3 G/dL (31.0-37.0); MEAN CORPUSCULAR VOLUME 94 fL (80-100); MONOCYTES # (AUTO) 0.5 K/uL (0.1-1.0); MONOCYTES % (AUTO) 10.1 % (2.0-9.0); NEUTROPHILS # (AUTO) 3.7 K/uL (1.8-7.7); NEUTROPHILS % (AUTO) 70.6 % (40.0-70.0); PLATELET COUNT (AUTO) 118 K/uL (150-450); RED CELL DISTRIBUTION WIDTH 14.8 % (11.5-14.5)
[2022-08-02 13:16] LABS: ALANINE AMINOTRANSFERASE 53 U/L (12-78); ALBUMIN 3.5 g/dL (3.4-5.0); ALKALINE PHOSPHATASE 112 U/L (46-116); ANION GAP 7 mmol/L (8-16); ASPARTATE AMINOTRANSFERASE 64 U/L (15-37); BILIRUBIN,TOTAL 0.5 mg/dL (0.1-1.0); CARBON DIOXIDE 26 mmol/L (22-29); CHLORIDE 104 mmol/L (98-107); CREATININE 0.75 mg/dL (0.60-1.30); FREE T4 (FREE THYROXINE) 1.04 ng/dL (0.76-1.46); GLOMERULAR FILTR. RATE CALC > 60 mL/min (>60); GLUCOSE,RANDOM 102 mg/dL (70-110); POTASSIUM 4.2 mmol/L (3.5-5.1); SODIUM SERUM 137 mmol/L (136-145); THYROID STIMULATING HORMONE 0.18 uIU/mL (0.36-3.74); TOTAL PROTEIN, SERUM 7.8 g/dL (6.4-8.2); UREA NITROGEN, BLOOD 14 mg/dL (7-18)
[2022-08-02 16:05] VITALS: BP 131/74
[2022-08-02 16:26] LABS: GLUCOMETER DEV NAME(LOC) 3E.C; GLUCOSE,POINT OF CARE 147 MG/DL (70-110)
[2022-08-02] MEDS ORDERED: INFLUENZA VIRUS VACCINE QVS 2022-23 (6MO+)/PF 60 MCG/0.5 ML SYRINGE IM. ONE (17:30)
[2022-08-02] MEDS ORDERED: PNEUMOCOCCAL VACCINE POLYVALENT 0.5 ML VIAL [PPSV23] IM. ONE (17:30)
[2022-08-02] MEDS: MetFORMIN HCL 500 MG TABLET PO SCH (17:32)
[2022-08-02] MEDS: INSULIN LISPRO 100 UNITS/ML SQ PRN ×2 (17:39→21:01)
[2022-08-02 20:30] VITALS: BP 130/81
[2022-08-02] MEDS: HALOPERIDOL 5 MG TABLET PO PRN (20:58)
[2022-08-02] MEDS: ATORVASTATIN CALCIUM 40 MG TABLET PO SCH (20:58)
[2022-08-02] MEDS: ZOLPIDEM TARTRATE 10 MG TABLET PO PRN (20:59)
[2022-08-02] MEDS: BENZTROPINE MESYLATE 2 MG TABLET PO SCH (21:09)
[2022-08-02] MEDS: LITHIUM CARBONATE 300 MG CAPSULE PO SCH (21:09)
[2022-08-02] MEDS: HALOPERIDOL 10 MG TABLET PO SCH (21:10)
[2022-08-02 21:11] LABS: GLUCOMETER DEV NAME(LOC) 3EX.2; GLUCOSE,POINT OF CARE 147 MG/DL (70-110)
[2022-08-02 23:01] VITALS: BP 130/81
[2022-08-03 02:40] VITALS: BP 109/63
[2022-08-03] MEDS: IBUPROFEN 600 MG TABLET PO PRN (02:42)
[2022-08-03 05:16] LABS: GLUCOMETER DEV NAME(LOC) 3EX.2; GLUCOSE,POINT OF CARE 123 MG/DL (70-110)
[2022-08-03] MEDS: LEVOTHYROXINE SODIUM 50 MCG TABLET PO SCH (06:12)
[2022-08-03] MEDS: MetFORMIN HCL 500 MG TABLET PO SCH ×2 (06:39→17:41)
[2022-08-03] MEDS: LORazepam 2 MG TABLET PO PRN ×2 (08:50→14:05)
[2022-08-03] MEDS: HALOPERIDOL 5 MG TABLET PO PRN ×2 (08:50→14:05)
[2022-08-03] MEDS: LACTULOSE 20 GM/30 ML SOLUTION UDCUP PO SCH (08:51)
[2022-08-03] MEDS: LITHIUM CARBONATE 300 MG CAPSULE PO SCH ×2 (08:51→20:59)
[2022-08-03] MEDS: LISINOPRIL 10 MG TABLET PO SCH (08:51)
[2022-08-03 08:56] LABS: CHOL/HDL RATIO 1.7 (4.2-7.3)
[2022-08-03 09:04] VITALS: BP 127/51
[2022-08-03 14:26] LABS: GLUCOMETER DEV NAME(LOC) 3EX.2; GLUCOSE,POINT OF CARE 168 MG/DL (70-110)
[2022-08-03 16:09] VITALS: BP 108/51
[2022-08-03] MEDS: INSULIN LISPRO 100 UNITS/ML SQ PRN ×2 (17:20→21:26)
[2022-08-03 17:27] LABS: GLUCOMETER DEV NAME(LOC) 3EX.2; GLUCOSE,POINT OF CARE 156 MG/DL (70-110)
[2022-08-03] MEDS: HALOPERIDOL 10 MG TABLET PO SCH (20:59)
[2022-08-03] MEDS: ATORVASTATIN CALCIUM 40 MG TABLET PO SCH (20:59)
[2022-08-03] MEDS: BENZTROPINE MESYLATE 2 MG TABLET PO SCH (20:59)
[2022-08-03 21:01] LABS: GLUCOMETER DEV NAME(LOC) 3EX.2; GLUCOSE,POINT OF CARE 161 MG/DL (70-110)
[2022-08-03] MEDS: ZOLPIDEM TARTRATE 10 MG TABLET PO PRN (23:06)
[2022-08-03 23:19] VITALS: BP 108/57
[2022-08-04 04:44] VITALS: BP 115/64
[2022-08-04] MEDS: IBUPROFEN 600 MG TABLET PO PRN ×2 (04:52→21:30)
[2022-08-04 05:41] LABS: GLUCOMETER DEV NAME(LOC) 3EX.2; GLUCOSE,POINT OF CARE 133 MG/DL (70-110)
[2022-08-04] MEDS: MetFORMIN HCL 500 MG TABLET PO SCH ×2 (07:01→18:03)
[2022-08-04] MEDS: LEVOTHYROXINE SODIUM 50 MCG TABLET PO SCH (07:01)
[2022-08-04 08:57] VITALS: BP 130/70
[2022-08-04] MEDS: LITHIUM CARBONATE 300 MG CAPSULE PO SCH ×2 (09:06→21:05)
[2022-08-04] MEDS: LACTULOSE 20 GM/30 ML SOLUTION UDCUP PO SCH (09:06)
[2022-08-04] MEDS: LISINOPRIL 10 MG TABLET PO SCH (09:08)
[2022-08-04] MEDS: INSULIN LISPRO 100 UNITS/ML SQ PRN ×2 (11:56→16:41)
[2022-08-04 12:11] LABS: GLUCOMETER DEV NAME(LOC) 3EX.2; GLUCOSE,POINT OF CARE 95 MG/DL (70-110)
[2022-08-04 12:27] LABS: APPEARANCE,URINE CLEAR (CLEAR); BILIRUBIN,URINE NEGATIVE (NEGATIVE); GLUCOSE, URINE (UA) NEGATIVE (NEGATIVE); KETONES,URINE NEGATIVE (NEGATIVE); LEUKOCYTE ESTERASE ,URINE NEGATIVE (NEGATIVE); NITRATE,URINE NEGATIVE (NEGATIVE); OCCULT BLOOD,URINE NEGATIVE (NEGATIVE); PROTEIN,URINE NEGATIVE (NEGATIVE); SPECIFIC GRAVITIY, URINE 1.006 (1.003-1.030); UROBILINOGEN,URINE <=1.0 mg/dL (<=1.0)
[2022-08-04 12:34] LABS: AMPHET/METH SCREEN,URINE NEGATIVE (NEGATIVE); BARBITURATE SCREEN, URINE NEGATIVE (NEGATIVE); BENZODIAZEPINES SCREEN,URINE NEGATIVE (NEGATIVE); CANNABINOID SCREEN,URINE NEGATIVE (NEGATIVE); COCAINE SCREEN,URINE NEGATIVE (NEGATIVE); METHADONE SCREEN, URINE NEGATIVE (NEGATIVE); OPIATE SCREEN,URINE NEGATIVE (NEGATIVE); PHENCYCLIDINE SCREEN,URINE NEGATIVE (NEGATIVE)
[2022-08-04 16:21] LABS: GLUCOMETER DEV NAME(LOC) 3EX.2; GLUCOSE,POINT OF CARE 153 MG/DL (70-110)
[2022-08-04 16:33] VITALS: BP 114/56
[2022-08-04] MEDS: LORazepam 2 MG TABLET PO PRN (20:15)
[2022-08-04 20:25] VITALS: BP 130/67
[2022-08-04 20:36] LABS: GLUCOMETER DEV NAME(LOC) 3EX.2; GLUCOSE,POINT OF CARE 109 MG/DL (70-110)
[2022-08-04] MEDS: BENZTROPINE MESYLATE 2 MG TABLET PO SCH (21:05)
[2022-08-04] MEDS: ATORVASTATIN CALCIUM 40 MG TABLET PO SCH (21:05)
[2022-08-04] MEDS: HALOPERIDOL 10 MG TABLET PO SCH (21:06)
[2022-08-04] MEDS ORDERED: MUPIROCIN CALCIUM 2% 22 GM OINTMENT NASAL SCH (22:45)
[2022-08-05] MEDS: ZOLPIDEM TARTRATE 10 MG TABLET PO PRN ×2 (01:25→20:28)
[2022-08-05 05:22] LABS: GLUCOMETER DEV NAME(LOC) 3EX.2; GLUCOSE,POINT OF CARE 154 MG/DL (70-110)
[2022-08-05] MEDS: LEVOTHYROXINE SODIUM 50 MCG TABLET PO SCH (05:52)
[2022-08-05] MEDS: INSULIN LISPRO 100 UNITS/ML SQ PRN ×3 (06:33→20:54)
[2022-08-05] MEDS: MetFORMIN HCL 500 MG TABLET PO SCH ×2 (06:37→17:21)
[2022-08-05 08:00] VITALS: BP 120/70
[2022-08-05] MEDS: LITHIUM CARBONATE 300 MG CAPSULE PO SCH ×2 (08:44→20:28)
[2022-08-05] MEDS: LISINOPRIL 10 MG TABLET PO SCH (08:45)
[2022-08-05] MEDS: LACTULOSE 20 GM/30 ML SOLUTION UDCUP PO SCH (08:45)
[2022-08-05] MEDS: MUPIROCIN CALCIUM 2% 22 GM OINTMENT NASAL SCH ×2 (08:46→17:35)
[2022-08-05 11:36] LABS: GLUCOMETER DEV NAME(LOC) 3EX.2; GLUCOSE,POINT OF CARE 122 MG/DL (70-110)
[2022-08-05 16:39] VITALS: BP 143/68
[2022-08-05 16:45] LABS: GLUCOMETER DEV NAME(LOC) 3EX.2; GLUCOSE,POINT OF CARE 87 MG/DL (70-110)
[2022-08-05 20:26] VITALS: BP 133/65
[2022-08-05] MEDS: BENZTROPINE MESYLATE 2 MG TABLET PO SCH (20:27)
[2022-08-05] MEDS: HALOPERIDOL 10 MG TABLET PO SCH (20:27)
[2022-08-05] MEDS: ATORVASTATIN CALCIUM 40 MG TABLET PO SCH (20:28)
[2022-08-05] MEDS: IBUPROFEN 600 MG TABLET PO PRN (20:29)
[2022-08-05 21:11] LABS: GLUCOMETER DEV NAME(LOC) 3EX.2; GLUCOSE,POINT OF CARE 110 MG/DL (70-110)
[2022-08-05 21:37] VITALS: BP 112/65
[2022-08-06] MEDS: LORazepam 2 MG TABLET PO PRN ×3 (02:42→20:24)
[2022-08-06] MEDS: MetFORMIN HCL 500 MG TABLET PO SCH ×2 (06:25→16:44)
[2022-08-06] MEDS: LEVOTHYROXINE SODIUM 50 MCG TABLET PO SCH (06:26)
[2022-08-06] MEDS: INSULIN LISPRO 100 UNITS/ML SQ PRN ×2 (06:32→21:33)
[2022-08-06 07:06] LABS: GLUCOMETER DEV NAME(LOC) 3EX.2; GLUCOSE,POINT OF CARE 97 MG/DL (70-110)
[2022-08-06] MEDS: MUPIROCIN CALCIUM 2% 22 GM OINTMENT NASAL SCH ×2 (08:20→16:45)
[2022-08-06] MEDS: LACTULOSE 20 GM/30 ML SOLUTION UDCUP PO SCH (08:20)
[2022-08-06] MEDS: LISINOPRIL 10 MG TABLET PO SCH (08:21)
[2022-08-06] MEDS: LITHIUM CARBONATE 300 MG CAPSULE PO SCH ×2 (08:21→20:29)
[2022-08-06 08:30] VITALS: BP 133/59
[2022-08-06] MEDS: HALOPERIDOL 5 MG TABLET PO PRN (10:53)
[2022-08-06 11:21] LABS: GLUCOMETER DEV NAME(LOC) 3EX.2; GLUCOSE,POINT OF CARE 125 MG/DL (70-110)
[2022-08-06 16:05] VITALS: BP 138/73
[2022-08-06 16:36] LABS: GLUCOMETER DEV NAME(LOC) 3EX.2; GLUCOSE,POINT OF CARE 137 MG/DL (70-110)
[2022-08-06 20:24] VITALS: BP 99/60
[2022-08-06 20:25] LABS: GLUCOMETER DEV NAME(LOC) 3EX.2; GLUCOSE,POINT OF CARE 184 MG/DL (70-110)
[2022-08-06] MEDS: HALOPERIDOL 10 MG TABLET PO SCH (20:30)
[2022-08-06] MEDS: ATORVASTATIN CALCIUM 40 MG TABLET PO SCH (20:30)
[2022-08-06] MEDS: BENZTROPINE MESYLATE 2 MG TABLET PO SCH (20:30)
[2022-08-06] MEDS: ZOLPIDEM TARTRATE 10 MG TABLET PO PRN (21:11)
[2022-08-07 01:52] VITALS: BP 124/68
[2022-08-07] MEDS: IBUPROFEN 600 MG TABLET PO PRN (01:56)
[2022-08-07] MEDS: HALOPERIDOL 5 MG TABLET PO PRN ×3 (01:56→18:24)
[2022-08-07 06:07] LABS: GLUCOMETER DEV NAME(LOC) 3EX.2; GLUCOSE,POINT OF CARE 164 MG/DL (70-110)
[2022-08-07] MEDS: LEVOTHYROXINE SODIUM 50 MCG TABLET PO SCH (06:23)
[2022-08-07] MEDS: INSULIN LISPRO 100 UNITS/ML SQ PRN ×2 (06:39→17:39)
[2022-08-07] MEDS: MetFORMIN HCL 500 MG TABLET PO SCH ×2 (06:40→16:33)
[2022-08-07] MEDS: LISINOPRIL 10 MG TABLET PO SCH (08:35)
[2022-08-07] MEDS: MUPIROCIN CALCIUM 2% 22 GM OINTMENT NASAL SCH ×2 (08:35→16:33)
[2022-08-07] MEDS: LITHIUM CARBONATE 300 MG CAPSULE PO SCH ×2 (08:35→20:45)
[2022-08-07] MEDS: LACTULOSE 20 GM/30 ML SOLUTION UDCUP PO SCH (08:35)
[2022-08-07 08:59] VITALS: BP 137/65
[2022-08-07] MEDS: LORazepam 2 MG TABLET PO PRN ×2 (09:03→18:24)
[2022-08-07 11:37] LABS: GLUCOMETER DEV NAME(LOC) 3EX.2; GLUCOSE,POINT OF CARE 120 MG/DL (70-110)
[2022-08-07 16:40] VITALS: BP 118/69
[2022-08-07 16:56] LABS: GLUCOMETER DEV NAME(LOC) 3EX.2; GLUCOSE,POINT OF CARE 176 MG/DL (70-110)
[2022-08-07] MEDS: BENZTROPINE MESYLATE 2 MG TABLET PO SCH (20:45)
[2022-08-07] MEDS: HALOPERIDOL 10 MG TABLET PO SCH (20:45)
[2022-08-07] MEDS: ATORVASTATIN CALCIUM 40 MG TABLET PO SCH (20:45)
[2022-08-08 05:26] LABS: GLUCOMETER DEV NAME(LOC) 3EX.2; GLUCOSE,POINT OF CARE 114 MG/DL (70-110)
[2022-08-08] MEDS: INSULIN LISPRO 100 UNITS/ML SQ PRN ×2 (06:34→11:52)
[2022-08-08] MEDS: LEVOTHYROXINE SODIUM 50 MCG TABLET PO SCH (06:43)
[2022-08-08] MEDS: MetFORMIN HCL 500 MG TABLET PO SCH (06:44)
[2022-08-08] MEDS: LACTULOSE 20 GM/30 ML SOLUTION UDCUP PO SCH (08:24)
[2022-08-08] MEDS: LITHIUM CARBONATE 300 MG CAPSULE PO SCH (08:24)
[2022-08-08] MEDS: MUPIROCIN CALCIUM 2% 22 GM OINTMENT NASAL SCH ×2 (08:24→16:44)
[2022-08-08 08:38] VITALS: BP 94/59
[2022-08-08] MEDS: LISINOPRIL 10 MG TABLET PO SCH (08:40)
[2022-08-08 12:01] LABS: GLUCOMETER DEV NAME(LOC) 3EX.2; GLUCOSE,POINT OF CARE 147 MG/DL (70-110)
[2022-08-08 16:30] LABS: COVID AG,FIA SOURCE NASAL SWAB
[2022-08-08 17:05] VITALS: BP 128/61
== END 2022-08-08 17:23 | DRG 885 ==
LOC: EMS 23:10 → 3EC 08-02 07:53 → 3EI 08-02 09:24
PROVIDERS: ADMIT Psychiatry & Neurology Psychiatry; ATTEND Psychiatry & Neurology Psychiatry
PROC: 3E0234Z Introduction of Serum, Toxoid and Vaccine into Muscle, Percutaneous Approach (ICD-10-PCS; principal; 2022-08-02)
PROC: 3E02340 Introduction of Influenza Vaccine into Muscle, Percutaneous Approach (ICD-10-PCS; 2022-08-02)
DX: F25.0 Schizoaffective disorder, bipolar type (principal); E03.9 Hypothyroidism, unspecified; E11.9 Type 2 diabetes mellitus without complications; E66.9 Obesity, unspecified; Z20.822 Contact with and (suspected) exposure to COVID-19; E78.00 Pure hypercholesterolemia, unspecified; G47.33 Obstructive sleep apnea (adult) (pediatric); I10 Essential (primary) hypertension; F10.90 Alcohol use, unspecified, uncomplicated; J44.9 Chronic obstructive pulmonary disease, unspecified; K59.00 Constipation, unspecified; K74.60 Unspecified cirrhosis of liver; Z53.20 Procedure and treatment not carried out because of patient's decision for unspecified reasons; Z59.00 Homelessness unspecified; Z87.891 Personal history of nicotine dependence; Z23 Encounter for immunization; Z68.35 Body mass index [BMI] 35.0-35.9, adult; Z79.899 Other long term (current) drug therapy; Z56.0 Unemployment, unspecified; Z71.41 Alcohol abuse counseling and surveillance of alcoholic
CPT/HCPCS: 80053; 80061; 80178; 80307; 81003; 82140; 82962; 84439; 84443; 85025; 87081; 90686; 90732; 99285; J1630; J2060; J3486

== ENCOUNTER 2022-08-19 21:27 | Inpatient (IN) | payer MEDICARE, MEDICAID ==
[~2022-08-19] VITALS: Ht 172.7 cm; Wt 105.3 kg
[~2022-08-19 21:27] MED LIST changes: -BENZ2TAB76 PO; -CEPH-558 PO; -HALO10TA21 PO; -LITH300C3 PO
[2022-08-19 22:11] LABS: GLUCOMETER DEV NAME(LOC) ERT.5; GLUCOSE,POINT OF CARE 130 MG/DL (70-110)
[2022-08-20 00:09] LABS: BASOPHILS % (AUTO) 0.6 % (0.0-2.0); EOSINOPHILS % (AUTO) 5.9 % (1.0-6.0); HEMATOCRIT 28.5 % (41-53); HEMOGLOBIN 9.7 g/dL (13.5-17.5); LYMPHOCYTES # (AUTO) 1.2 K/uL (1.0-4.8); LYMPHOCYTES % (AUTO) 25.7 % (22.0-44.0); MEAN CORPUSCULAR HEMOGLOBIN 32.2 pg (26.0-34.0); MEAN CORPUSCULAR HGB CONC 33.9 G/dL (31.0-37.0); MEAN CORPUSCULAR VOLUME 95 fL (80-100); MONOCYTES # (AUTO) 0.6 K/uL (0.1-1.0); MONOCYTES % (AUTO) 12.4 % (2.0-9.0); NEUTROPHILS # (AUTO) 2.5 K/uL (1.8-7.7); NEUTROPHILS % (AUTO) 55.4 % (40.0-70.0); PLATELET COUNT (AUTO) 111 K/uL (150-450); RED CELL DISTRIBUTION WIDTH 15.1 % (11.5-14.5)
[2022-08-20 00:17] LABS: ANION GAP 7 mmol/L (8-16); CALCIUM, TOTAL 8.8 mg/dL (8.8-10.5); CARBON DIOXIDE 28 mmol/L (22-29); CHLORIDE 106 mmol/L (98-107); CREATININE 0.73 mg/dL (0.60-1.30); GLOMERULAR FILTR. RATE CALC > 60 mL/min (>60); GLUCOSE,RANDOM 99 mg/dL (70-110); POTASSIUM 4.1 mmol/L (3.5-5.1); SODIUM SERUM 141 mmol/L (136-145)
[2022-08-20 00:23] LABS: ALANINE AMINOTRANSFERASE 31 U/L (12-78); ALBUMIN 3.6 g/dL (3.4-5.0); ALKALINE PHOSPHATASE 106 U/L (46-116); ASPARTATE AMINOTRANSFERASE 25 U/L (15-37); BILIRUBIN,TOTAL 0.3 mg/dL (0.1-1.0); TOTAL PROTEIN, SERUM 7.2 g/dL (6.4-8.2)
[2022-08-20] MEDS ORDERED: LORazepam 2 MG/ML VIAL IM ONE (03:00)
[2022-08-20] MEDS ORDERED: HALOPERIDOL LACTATE 5 MG/ML VIAL IM ONE (03:00)
[2022-08-20] MEDS ORDERED: LORazepam 1 MG TABLET PO ONE ×2 (03:00→10:00)
[2022-08-20] MEDS ORDERED: HALOPERIDOL 5 MG TABLET PO ONE ×2 (03:00→10:00)
[2022-08-20 03:39] LABS: COVID AG,FIA SOURCE NASAL SWAB
[2022-08-20 03:50] LABS: AMPHET/METH SCREEN,URINE NEGATIVE (NEGATIVE); BARBITURATE SCREEN, URINE NEGATIVE (NEGATIVE); BENZODIAZEPINES SCREEN,URINE NEGATIVE (NEGATIVE); CANNABINOID SCREEN,URINE NEGATIVE (NEGATIVE); COCAINE SCREEN,URINE NEGATIVE (NEGATIVE); METHADONE SCREEN, URINE NEGATIVE (NEGATIVE); OPIATE SCREEN,URINE NEGATIVE (NEGATIVE); PHENCYCLIDINE SCREEN,URINE NEGATIVE (NEGATIVE)
[2022-08-20] MEDS: HALOPERIDOL 5 MG TABLET PO PRN (09:42)
[2022-08-20] MEDS: LORazepam 2 MG TABLET PO PRN (09:42)
[2022-08-20] MEDS ORDERED: DiphenhydrAMINE HCL 25 MG CAPSULE PO ONE (10:00)
[2022-08-20] MEDS ORDERED: LITHIUM CARBONATE 300 MG ER TABLET PO ONE (10:00)
[2022-08-20 10:57] LABS: APPEARANCE,URINE CLEAR (CLEAR); BILIRUBIN,URINE NEGATIVE (NEGATIVE); GLUCOSE, URINE (UA) NEGATIVE (NEGATIVE); KETONES,URINE NEGATIVE (NEGATIVE); LEUKOCYTE ESTERASE ,URINE NEGATIVE (NEGATIVE); NITRATE,URINE NEGATIVE (NEGATIVE); OCCULT BLOOD,URINE NEGATIVE (NEGATIVE); PH,URINE 6.5 (5.0-8.0); PROTEIN,URINE NEGATIVE (NEGATIVE); SPECIFIC GRAVITIY, URINE 1.013 (1.003-1.030); UROBILINOGEN,URINE <=1.0 mg/dL (<=1.0)
[2022-08-21] VITALS (9 sets, daily range): BP systolic 112–123; BP diastolic 57–75; PULSE 76–100; RESP 18; TEMP 96.2–98.3; O2SAT 100
[2022-08-21] MEDS ORDERED: MAG HYDROX/AL HYDROX/SIMETH ES 30 ML SUSPENSION UDCUP PO PRN (07:30)
[2022-08-21] MEDS ORDERED: ALBUTEROL SULFATE HFA 90 MCG/PUFF 8 GM INHALER IH PRN (07:30)
[2022-08-21] MEDS ORDERED: PETROLATUM,WHITE 28 GM JELLY TP PRN (07:30)
[2022-08-21] MEDS ORDERED: DEXTROSE 50%-WATER 25 GM/50 ML SYRINGE IVP PRN (07:30)
[2022-08-21] MEDS ORDERED: OMEPRAZOLE 20 MG CAPSULE PO PRN (07:30)
[2022-08-21] MEDS ORDERED: DOCUSATE SODIUM 100 MG CAPSULE PO PRN (07:30)
[2022-08-21] MEDS ORDERED: CloNIDine HCL 0.1 MG TABLET PO PRN (07:30)
[2022-08-21] MEDS ORDERED: ONDANSETRON HCL 4 MG TABLET PO PRN (07:30)
[2022-08-21] MEDS ORDERED: BACITRACIN 28 GM OINTMENT TP PRN (07:30)
[2022-08-21] MEDS ORDERED: LOPERAMIDE HCL 2 MG CAPSULE PO PRN (07:30)
[2022-08-21] MEDS ORDERED: MAGNESIUM HYDROXIDE SUSPENSION 30 ML UDCUP PO PRN (07:30)
[2022-08-21] MEDS: MetFORMIN HCL 500 MG TABLET PO SCH ×2 (08:13→16:44)
[2022-08-21] MEDS: LACTULOSE 20 GM/30 ML SOLUTION UDCUP PO SCH (08:13)
[2022-08-21] MEDS: ACETAMINOPHEN 325 MG TABLET PO PRN (08:30)
[2022-08-21 12:11] LABS: GLUCOMETER DEV NAME(LOC) 3E.C; GLUCOSE,POINT OF CARE 92 MG/DL (70-110)
[2022-08-21] MEDS: BENZTROPINE MESYLATE 1 MG TABLET PO SCH (16:21)
[2022-08-21] MEDS: LITHIUM CARBONATE 300 MG CAPSULE PO SCH (16:21)
[2022-08-21 17:42] LABS: GLUCOMETER DEV NAME(LOC) 3E.C; GLUCOSE,POINT OF CARE 128 MG/DL (70-110)
[2022-08-21 20:36] LABS: GLUCOMETER DEV NAME(LOC) 3E.C; GLUCOSE,POINT OF CARE 106 MG/DL (70-110)
[2022-08-21] MEDS: HALOPERIDOL 10 MG TABLET PO SCH (20:36)
[2022-08-21] MEDS: ATORVASTATIN CALCIUM 40 MG TABLET PO SCH (20:36)
[2022-08-21] MEDS: LORazepam 2 MG TABLET PO PRN (21:03)
[2022-08-21] MEDS: ZOLPIDEM TARTRATE 10 MG TABLET PO PRN (21:03)
[2022-08-22 04:01] VITALS: RESP 18
[2022-08-22 06:01] LABS: GLUCOMETER DEV NAME(LOC) 3E.C; GLUCOSE,POINT OF CARE 94 MG/DL (70-110)
[2022-08-22] MEDS: MetFORMIN HCL 500 MG TABLET PO SCH ×2 (06:38→16:23)
[2022-08-22] MEDS: LEVOTHYROXINE SODIUM 50 MCG TABLET PO SCH (06:38)
[2022-08-22] MEDS: LACTULOSE 20 GM/30 ML SOLUTION UDCUP PO SCH (08:04)
[2022-08-22] MEDS: BENZTROPINE MESYLATE 1 MG TABLET PO SCH ×2 (08:04→16:23)
[2022-08-22] MEDS: LITHIUM CARBONATE 300 MG CAPSULE PO SCH ×2 (08:08→16:23)
[2022-08-22] MEDS ORDERED: HALOPERIDOL LACTATE 5 MG/ML VIAL ONE (10:50)
[2022-08-22] MEDS ORDERED: DiphenhydrAMINE HCL 50 MG/ML VIAL ONE (10:50)
[2022-08-22] MEDS ORDERED: LORazepam 2 MG/ML VIAL ONE (10:50)
[2022-08-22] MEDS ORDERED: LORazepam 2 MG/ML VIAL IM ONE ×2 (11:00→17:15)
[2022-08-22] MEDS ORDERED: HALOPERIDOL LACTATE 5 MG/ML VIAL IM ONE ×2 (11:00→17:15)
[2022-08-22] MEDS ORDERED: DiphenhydrAMINE HCL 50 MG/ML VIAL IM ONE (11:00)
[2022-08-22 12:00] VITALS: TEMP 97.5
[2022-08-22 16:00] VITALS: BP 126/68; PULSE 80; RESP 18; TEMP 97.2
[2022-08-22] MEDS: LORazepam 2 MG TABLET PO PRN (16:33)
[2022-08-22] MEDS: HALOPERIDOL 5 MG TABLET PO PRN (16:33)
[2022-08-22 17:17] LABS: GLUCOMETER DEV NAME(LOC) 3E.C; GLUCOSE,POINT OF CARE 142 MG/DL (70-110)
[2022-08-22 20:42] LABS: GLUCOMETER DEV NAME(LOC) 3EX.2; GLUCOSE,POINT OF CARE 129 MG/DL (70-110)
[2022-08-22] MEDS: ATORVASTATIN CALCIUM 40 MG TABLET PO SCH (20:47)
[2022-08-22] MEDS: HALOPERIDOL 10 MG TABLET PO SCH (20:47)
[2022-08-22 22:13] VITALS: RESP 20
[2022-08-22] MEDS: INSULIN LISPRO 100 UNITS/ML SQ PRN (22:22)
[2022-08-23] VITALS (7 sets, daily range): BP systolic 126–148; BP diastolic 67–78; PULSE 69–91; RESP 17–18; TEMP 97.6–98.6
[2022-08-23] MEDS: LORazepam 2 MG TABLET PO PRN ×2 (01:31→08:20)
[2022-08-23] MEDS: ZOLPIDEM TARTRATE 10 MG TABLET PO PRN ×2 (01:31→23:34)
[2022-08-23 05:51] LABS: GLUCOMETER DEV NAME(LOC) 3EX.2; GLUCOSE,POINT OF CARE 87 MG/DL (70-110)
[2022-08-23] MEDS: INSULIN LISPRO 100 UNITS/ML SQ PRN ×4 (06:25→22:18)
[2022-08-23] MEDS: LEVOTHYROXINE SODIUM 50 MCG TABLET PO SCH (07:00)
[2022-08-23] MEDS: MetFORMIN HCL 500 MG TABLET PO SCH ×2 (07:01→16:32)
[2022-08-23] MEDS: LACTULOSE 20 GM/30 ML SOLUTION UDCUP PO SCH (08:19)
[2022-08-23] MEDS: LITHIUM CARBONATE 300 MG CAPSULE PO SCH ×2 (08:19→16:32)
[2022-08-23] MEDS: BENZTROPINE MESYLATE 1 MG TABLET PO SCH ×2 (08:19→16:33)
[2022-08-23 11:31] LABS: GLUCOMETER DEV NAME(LOC) 3EX.2; GLUCOSE,POINT OF CARE 146 MG/DL (70-110)
[2022-08-23 16:31] LABS: GLUCOMETER DEV NAME(LOC) 3EX.2; GLUCOSE,POINT OF CARE 149 MG/DL (70-110)
[2022-08-23] MEDS: ATORVASTATIN CALCIUM 40 MG TABLET PO SCH (20:35)
[2022-08-23] MEDS: HALOPERIDOL 10 MG TABLET PO SCH (20:36)
[2022-08-23 20:37] LABS: GLUCOMETER DEV NAME(LOC) 3EX.2; GLUCOSE,POINT OF CARE 127 MG/DL (70-110)
[2022-08-23] MEDS: ACETAMINOPHEN 325 MG TABLET PO PRN (23:34)
[2022-08-24] VITALS (7 sets, daily range): BP systolic 116–139; BP diastolic 60–68; PULSE 73–81; RESP 18–20; TEMP 97.5–98
[2022-08-24] MEDS: HALOPERIDOL 5 MG TABLET PO PRN (05:15)
[2022-08-24] MEDS: LORazepam 2 MG TABLET PO PRN ×3 (05:16→20:53)
[2022-08-24 06:11] LABS: GLUCOMETER DEV NAME(LOC) 3EX.2; GLUCOSE,POINT OF CARE 124 MG/DL (70-110)
[2022-08-24] MEDS: LEVOTHYROXINE SODIUM 50 MCG TABLET PO SCH (06:48)
[2022-08-24] MEDS: MetFORMIN HCL 500 MG TABLET PO SCH ×2 (06:48→16:58)
[2022-08-24] MEDS: INSULIN LISPRO 100 UNITS/ML SQ PRN ×3 (06:49→20:52)
[2022-08-24] MEDS: LITHIUM CARBONATE 300 MG CAPSULE PO SCH ×2 (08:13→16:03)
[2022-08-24] MEDS: BENZTROPINE MESYLATE 1 MG TABLET PO SCH ×2 (08:14→16:03)
[2022-08-24] MEDS: LACTULOSE 20 GM/30 ML SOLUTION UDCUP PO SCH (08:14)
[2022-08-24 11:16] LABS: GLUCOMETER DEV NAME(LOC) 3EX.2; GLUCOSE,POINT OF CARE 136 MG/DL (70-110)
[2022-08-24 16:12] LABS: GLUCOMETER DEV NAME(LOC) 3EX.2; GLUCOSE,POINT OF CARE 148 MG/DL (70-110)
[2022-08-24] MEDS: IBUPROFEN 600 MG TABLET PO PRN ×2 (16:59→23:48)
[2022-08-24 20:27] LABS: GLUCOMETER DEV NAME(LOC) 3EX.2; GLUCOSE,POINT OF CARE 166 MG/DL (70-110)
[2022-08-24] MEDS: HALOPERIDOL 10 MG TABLET PO SCH (20:35)
[2022-08-24] MEDS: ATORVASTATIN CALCIUM 40 MG TABLET PO SCH (20:35)
[2022-08-24] MEDS: ZOLPIDEM TARTRATE 10 MG TABLET PO PRN (20:52)
[2022-08-25] VITALS (9 sets, daily range): BP systolic 123–155; BP diastolic 58–81; PULSE 79–82; RESP 17–20; TEMP 97.8–98.2
[2022-08-25] MEDS: LORazepam 2 MG TABLET PO PRN ×4 (00:59→17:13)
[2022-08-25] MEDS: HALOPERIDOL 5 MG TABLET PO PRN ×4 (00:59→17:13)
[2022-08-25 06:02] LABS: GLUCOMETER DEV NAME(LOC) 3EX.2; GLUCOSE,POINT OF CARE 122 MG/DL (70-110)
[2022-08-25] MEDS: INSULIN LISPRO 100 UNITS/ML SQ PRN ×4 (06:56→21:42)
[2022-08-25] MEDS: LEVOTHYROXINE SODIUM 75 MCG TABLET PO SCH (06:56)
[2022-08-25] MEDS: MetFORMIN HCL 500 MG TABLET PO SCH ×2 (06:56→16:11)
[2022-08-25] MEDS: BENZTROPINE MESYLATE 1 MG TABLET PO SCH ×2 (08:41→16:11)
[2022-08-25] MEDS: LACTULOSE 20 GM/30 ML SOLUTION UDCUP PO SCH (08:41)
[2022-08-25] MEDS: LITHIUM CARBONATE 300 MG CAPSULE PO SCH ×2 (08:41→16:11)
[2022-08-25] MEDS: ACETAMINOPHEN 325 MG TABLET PO PRN (09:06)
[2022-08-25 11:26] LABS: GLUCOMETER DEV NAME(LOC) 3EX.2; GLUCOSE,POINT OF CARE 217 MG/DL (70-110)
[2022-08-25 15:46] LABS: GLUCOMETER DEV NAME(LOC) 3EX.2; GLUCOSE,POINT OF CARE 202 MG/DL (70-110)
[2022-08-25 16:56] LABS: GLUCOMETER DEV NAME(LOC) 3EX.2; GLUCOSE,POINT OF CARE 179 MG/DL (70-110)
[2022-08-25] MEDS: ATORVASTATIN CALCIUM 40 MG TABLET PO SCH (20:38)
[2022-08-25] MEDS: HALOPERIDOL 10 MG TABLET PO SCH (20:38)
[2022-08-25 21:41] LABS: GLUCOMETER DEV NAME(LOC) 3EX.2; GLUCOSE,POINT OF CARE 152 MG/DL (70-110)
[2022-08-25] MEDS: IBUPROFEN 600 MG TABLET PO PRN (22:25)
[2022-08-26 01:01] VITALS: RESP 20
[2022-08-26] MEDS: ZOLPIDEM TARTRATE 10 MG TABLET PO PRN ×2 (03:24→21:28)
[2022-08-26 06:00] VITALS: RESP 20
[2022-08-26] MEDS: LEVOTHYROXINE SODIUM 75 MCG TABLET PO SCH (06:38)
[2022-08-26] MEDS: INSULIN LISPRO 100 UNITS/ML SQ PRN ×4 (06:40→21:24)
[2022-08-26 06:46] LABS: GLUCOMETER DEV NAME(LOC) 3EX.2; GLUCOSE,POINT OF CARE 270 MG/DL (70-110)
[2022-08-26] MEDS: MetFORMIN HCL 500 MG TABLET PO SCH ×2 (06:51→17:51)
[2022-08-26] MEDS: LACTULOSE 20 GM/30 ML SOLUTION UDCUP PO SCH (07:41)
[2022-08-26] MEDS: BENZTROPINE MESYLATE 1 MG TABLET PO SCH ×2 (07:41→17:51)
[2022-08-26] MEDS: HALOPERIDOL 5 MG TABLET PO PRN ×3 (07:41→21:28)
[2022-08-26] MEDS: LORazepam 2 MG TABLET PO PRN ×2 (07:41→14:38)
[2022-08-26 08:13] LABS: COVID AG,FIA SOURCE NASAL SWAB
[2022-08-26 09:17] VITALS: BP 112/60; PULSE 80; RESP 18; TEMP 98
[2022-08-26 11:47] LABS: GLUCOMETER DEV NAME(LOC) 3EX.2; GLUCOSE,POINT OF CARE 242 MG/DL (70-110)
[2022-08-26 12:00] VITALS: RESP 20; TEMP 98
[2022-08-26 16:16] LABS: GLUCOMETER DEV NAME(LOC) 3EX.2; GLUCOSE,POINT OF CARE 320 MG/DL (70-110)
[2022-08-26 17:39] VITALS: BP 131/98; PULSE 90; RESP 18; TEMP 98.6
[2022-08-26 20:10] VITALS: BP 132/70; PULSE 81; RESP 18; TEMP 98.6
[2022-08-26 20:21] LABS: GLUCOMETER DEV NAME(LOC) 3EX.2; GLUCOSE,POINT OF CARE 262 MG/DL (70-110)
[2022-08-26] MEDS: ATORVASTATIN CALCIUM 40 MG TABLET PO SCH (20:24)
[2022-08-26] MEDS: LITHIUM CARBONATE 300 MG CAPSULE PO SCH (20:25)
[2022-08-26] MEDS: HALOPERIDOL 10 MG TABLET PO SCH (20:25)
[2022-08-27 00:35] VITALS: RESP 18
[2022-08-27 04:30] VITALS: RESP 18
[2022-08-27] MEDS: LEVOTHYROXINE SODIUM 75 MCG TABLET PO SCH (06:36)
[2022-08-27] MEDS: MetFORMIN HCL 500 MG TABLET PO SCH ×2 (06:36→16:43)
[2022-08-27] MEDS: INSULIN LISPRO 100 UNITS/ML SQ PRN ×4 (06:42→21:06)
[2022-08-27 06:46] LABS: GLUCOMETER DEV NAME(LOC) 3EX.2; GLUCOSE,POINT OF CARE 171 MG/DL (70-110)
[2022-08-27] MEDS: LORazepam 2 MG TABLET PO PRN ×2 (09:13→17:42)
[2022-08-27] MEDS: LACTULOSE 20 GM/30 ML SOLUTION UDCUP PO SCH (09:13)
[2022-08-27] MEDS: BENZTROPINE MESYLATE 1 MG TABLET PO SCH ×2 (09:14→16:43)
[2022-08-27] MEDS: HALOPERIDOL 5 MG TABLET PO PRN ×2 (09:14→17:41)
[2022-08-27 09:22] VITALS: BP 142/72; PULSE 74; RESP 18; TEMP 97.8
[2022-08-27 11:36] LABS: GLUCOMETER DEV NAME(LOC) 3EX.2; GLUCOSE,POINT OF CARE 214 MG/DL (70-110)
[2022-08-27 13:34] VITALS: TEMP 97.6
[2022-08-27 15:41] LABS: GLUCOMETER DEV NAME(LOC) 3EX.2; GLUCOSE,POINT OF CARE 285 MG/DL (70-110)
[2022-08-27 16:00] VITALS: BP 160/82; PULSE 77; RESP 18; TEMP 98.2
[2022-08-27 20:15] VITALS: BP 145/80; PULSE 80; RESP 18; TEMP 98
[2022-08-27] MEDS: ZOLPIDEM TARTRATE 10 MG TABLET PO PRN (20:16)
[2022-08-27] MEDS: HALOPERIDOL 10 MG TABLET PO SCH (20:17)
[2022-08-27] MEDS: ATORVASTATIN CALCIUM 40 MG TABLET PO SCH (20:17)
[2022-08-27] MEDS: LITHIUM CARBONATE 300 MG CAPSULE PO SCH (20:17)
[2022-08-27 20:21] LABS: GLUCOMETER DEV NAME(LOC) 3EX.2; GLUCOSE,POINT OF CARE 254 MG/DL (70-110)
[2022-08-28] VITALS (8 sets, daily range): BP systolic 112–144; BP diastolic 56–81; PULSE 71–79; RESP 18–19; TEMP 97.6–98.4
[2022-08-28] MEDS: HALOPERIDOL 5 MG TABLET PO PRN (02:04)
[2022-08-28] MEDS: LORazepam 2 MG TABLET PO PRN (02:04)
[2022-08-28] MEDS: IBUPROFEN 600 MG TABLET PO PRN (02:06)
[2022-08-28 05:36] LABS: GLUCOMETER DEV NAME(LOC) 3EX.2; GLUCOSE,POINT OF CARE 137 MG/DL (70-110)
[2022-08-28] MEDS: MetFORMIN HCL 500 MG TABLET PO SCH ×2 (06:38→16:35)
[2022-08-28] MEDS: LEVOTHYROXINE SODIUM 75 MCG TABLET PO SCH (06:38)
[2022-08-28] MEDS: LACTULOSE 20 GM/30 ML SOLUTION UDCUP PO SCH (08:21)
[2022-08-28] MEDS: BENZTROPINE MESYLATE 1 MG TABLET PO SCH ×2 (08:21→16:36)
[2022-08-28 11:36] LABS: GLUCOMETER DEV NAME(LOC) 3EX.2; GLUCOSE,POINT OF CARE 264 MG/DL (70-110)
[2022-08-28] MEDS: INSULIN LISPRO 100 UNITS/ML SQ PRN ×2 (11:46→16:47)
[2022-08-28 16:20] LABS: GLUCOMETER DEV NAME(LOC) 3EX.2; GLUCOSE,POINT OF CARE 213 MG/DL (70-110)
[2022-08-28 20:41] LABS: GLUCOMETER DEV NAME(LOC) 3EX.2; GLUCOSE,POINT OF CARE 134 MG/DL (70-110)
[2022-08-28] MEDS: LITHIUM CARBONATE 300 MG CAPSULE PO SCH (21:04)
[2022-08-28] MEDS: HALOPERIDOL 10 MG TABLET PO SCH (21:04)
[2022-08-28] MEDS: ATORVASTATIN CALCIUM 40 MG TABLET PO SCH (21:04)
[2022-08-28] MEDS: ZOLPIDEM TARTRATE 10 MG TABLET PO PRN (21:05)
[2022-08-29 00:17] VITALS: RESP 18
[2022-08-29] MEDS: LORazepam 2 MG TABLET PO PRN ×3 (03:19→21:30)
[2022-08-29] MEDS: HALOPERIDOL 5 MG TABLET PO PRN ×2 (03:19→09:46)
[2022-08-29 04:25] VITALS: RESP 17
[2022-08-29 06:46] LABS: GLUCOMETER DEV NAME(LOC) 3EX.2; GLUCOSE,POINT OF CARE 136 MG/DL (70-110)
[2022-08-29] MEDS: LEVOTHYROXINE SODIUM 75 MCG TABLET PO SCH (07:01)
[2022-08-29] MEDS: MetFORMIN HCL 500 MG TABLET PO SCH ×2 (07:01→17:23)
[2022-08-29 08:00] VITALS: BP 121/60; PULSE 79; RESP 18; TEMP 97
[2022-08-29] MEDS: BENZTROPINE MESYLATE 1 MG TABLET PO SCH ×2 (09:46→17:23)
[2022-08-29] MEDS: LACTULOSE 20 GM/30 ML SOLUTION UDCUP PO SCH (09:47)
[2022-08-29 12:23] VITALS: TEMP 97.8
[2022-08-29 16:03] VITALS: BP 136/97; PULSE 103; RESP 18; TEMP 97.5
[2022-08-29 17:16] LABS: GLUCOMETER DEV NAME(LOC) 3EX.2; GLUCOSE,POINT OF CARE 153 MG/DL (70-110)
[2022-08-29 17:16] LABS: GLUCOMETER DEV NAME(LOC) 3EX.2; GLUCOSE,POINT OF CARE 123 MG/DL (70-110)
[2022-08-29] MEDS: INSULIN LISPRO 100 UNITS/ML SQ PRN ×2 (17:19→21:08)
[2022-08-29 20:27] LABS: GLUCOMETER DEV NAME(LOC) 3EX.2; GLUCOSE,POINT OF CARE 148 MG/DL (70-110)
[2022-08-29] MEDS: LITHIUM CARBONATE 300 MG CAPSULE PO SCH (21:07)
[2022-08-29] MEDS: ATORVASTATIN CALCIUM 40 MG TABLET PO SCH (21:07)
[2022-08-29] MEDS: HALOPERIDOL 10 MG TABLET PO SCH (21:07)
[2022-08-29 21:38] VITALS: RESP 18
[2022-08-30] VITALS (7 sets, daily range): BP systolic 104–122; BP diastolic 55–72; PULSE 68–73; RESP 18; TEMP 97.4–98.4
[2022-08-30] MEDS: ZOLPIDEM TARTRATE 10 MG TABLET PO PRN ×2 (03:25→21:45)
[2022-08-30] MEDS: IBUPROFEN 600 MG TABLET PO PRN (03:40)
[2022-08-30 05:36] LABS: GLUCOMETER DEV NAME(LOC) 3EX.2; GLUCOSE,POINT OF CARE 147 MG/DL (70-110)
[2022-08-30] MEDS: MetFORMIN HCL 500 MG TABLET PO SCH ×2 (06:32→16:44)
[2022-08-30] MEDS: INSULIN LISPRO 100 UNITS/ML SQ PRN ×4 (06:35→21:00)
[2022-08-30] MEDS: LEVOTHYROXINE SODIUM 75 MCG TABLET PO SCH (06:36)
[2022-08-30] MEDS: LACTULOSE 20 GM/30 ML SOLUTION UDCUP PO SCH (08:31)
[2022-08-30] MEDS: BENZTROPINE MESYLATE 1 MG TABLET PO SCH ×2 (08:32→16:44)
[2022-08-30] MEDS: MULTIVITAMINS WITH MINERALS, THERAPEUTIC TABLET PO SCH (09:17)
[2022-08-30 11:46] LABS: GLUCOMETER DEV NAME(LOC) 3EX.2; GLUCOSE,POINT OF CARE 143 MG/DL (70-110)
[2022-08-30 16:41] LABS: GLUCOMETER DEV NAME(LOC) 3EX.2; GLUCOSE,POINT OF CARE 176 MG/DL (70-110)
[2022-08-30 20:46] LABS: GLUCOMETER DEV NAME(LOC) 3EX.2; GLUCOSE,POINT OF CARE 160 MG/DL (70-110)
[2022-08-30] MEDS: LITHIUM CARBONATE 300 MG CAPSULE PO SCH (20:58)
[2022-08-30] MEDS: HALOPERIDOL 10 MG TABLET PO SCH (20:59)
[2022-08-30] MEDS: LORazepam 2 MG TABLET PO PRN (20:59)
[2022-08-30] MEDS: ATORVASTATIN CALCIUM 40 MG TABLET PO SCH (20:59)
[2022-08-31] VITALS (9 sets, daily range): BP systolic 107–151; BP diastolic 54–82; PULSE 70–88; RESP 18–20; TEMP 97.9–98.2
[2022-08-31] MEDS: IBUPROFEN 600 MG TABLET PO PRN ×2 (03:10→20:33)
[2022-08-31 05:31] LABS: GLUCOMETER DEV NAME(LOC) 3EX.2; GLUCOSE,POINT OF CARE 239 MG/DL (70-110)
[2022-08-31] MEDS: LEVOTHYROXINE SODIUM 75 MCG TABLET PO SCH (06:12)
[2022-08-31] MEDS: MetFORMIN HCL 500 MG TABLET PO SCH ×2 (06:30→17:36)
[2022-08-31] MEDS: INSULIN LISPRO 100 UNITS/ML SQ PRN ×4 (06:31→21:31)
[2022-08-31] MEDS: MULTIVITAMINS WITH MINERALS, THERAPEUTIC TABLET PO SCH (08:41)
[2022-08-31] MEDS: BENZTROPINE MESYLATE 1 MG TABLET PO SCH ×2 (08:41→17:04)
[2022-08-31] MEDS: LACTULOSE 20 GM/30 ML SOLUTION UDCUP PO SCH (08:42)
[2022-08-31 12:46] LABS: GLUCOMETER DEV NAME(LOC) 3EX.2; GLUCOSE,POINT OF CARE 161 MG/DL (70-110)
[2022-08-31 16:41] LABS: GLUCOMETER DEV NAME(LOC) 3EX.2; GLUCOSE,POINT OF CARE 166 MG/DL (70-110)
[2022-08-31] MEDS: ATORVASTATIN CALCIUM 40 MG TABLET PO SCH (20:09)
[2022-08-31] MEDS: LITHIUM CARBONATE 300 MG CAPSULE PO SCH (20:09)
[2022-08-31] MEDS: HALOPERIDOL 10 MG TABLET PO SCH (20:10)
[2022-08-31 20:26] LABS: GLUCOMETER DEV NAME(LOC) 3EX.2; GLUCOSE,POINT OF CARE 184 MG/DL (70-110)
[2022-08-31] MEDS: LORazepam 2 MG TABLET PO PRN (20:33)
[2022-08-31] MEDS: ZOLPIDEM TARTRATE 10 MG TABLET PO PRN (21:29)
[2022-09-01] VITALS (8 sets, daily range): BP systolic 114–130; BP diastolic 65–72; PULSE 68–83; RESP 17–20; TEMP 97–98.1
[2022-09-01] MEDS: HALOPERIDOL 5 MG TABLET PO PRN (05:15)
[2022-09-01] MEDS: LORazepam 2 MG TABLET PO PRN ×2 (05:16→20:04)
[2022-09-01 05:26] LABS: GLUCOMETER DEV NAME(LOC) 3EX.2; GLUCOSE,POINT OF CARE 207 MG/DL (70-110)
[2022-09-01] MEDS: MetFORMIN HCL 500 MG TABLET PO SCH ×2 (06:34→17:34)
[2022-09-01] MEDS: LEVOTHYROXINE SODIUM 75 MCG TABLET PO SCH (06:34)
[2022-09-01] MEDS: INSULIN LISPRO 100 UNITS/ML SQ PRN ×4 (06:36→20:06)
[2022-09-01] MEDS: MULTIVITAMINS WITH MINERALS, THERAPEUTIC TABLET PO SCH (08:13)
[2022-09-01] MEDS: LACTULOSE 20 GM/30 ML SOLUTION UDCUP PO SCH (08:14)
[2022-09-01] MEDS: BENZTROPINE MESYLATE 1 MG TABLET PO SCH ×2 (08:14→16:13)
[2022-09-01 08:45] LABS: COVID AG,FIA SOURCE NASAL SWAB
[2022-09-01 11:06] LABS: GLUCOMETER DEV NAME(LOC) 3EX.2; GLUCOSE,POINT OF CARE 196 MG/DL (70-110)
[2022-09-01 16:01] LABS: GLUCOMETER DEV NAME(LOC) 3EX.2; GLUCOSE,POINT OF CARE 220 MG/DL (70-110)
[2022-09-01] MEDS: IBUPROFEN 600 MG TABLET PO PRN (16:13)
[2022-09-01] MEDS: ATORVASTATIN CALCIUM 40 MG TABLET PO SCH (20:04)
[2022-09-01] MEDS: LITHIUM CARBONATE 300 MG CAPSULE PO SCH (20:04)
[2022-09-01] MEDS: HALOPERIDOL 10 MG TABLET PO SCH (20:04)
[2022-09-01 20:17] LABS: GLUCOMETER DEV NAME(LOC) 3EX.2; GLUCOSE,POINT OF CARE 147 MG/DL (70-110)
[2022-09-01] MEDS: ZOLPIDEM TARTRATE 10 MG TABLET PO PRN (21:10)
[2022-09-02 00:26] VITALS: RESP 18
[2022-09-02] MEDS: HALOPERIDOL 5 MG TABLET PO PRN (03:12)
[2022-09-02] MEDS: LORazepam 2 MG TABLET PO PRN ×2 (03:13→20:08)
[2022-09-02 05:36] VITALS: RESP 17; TEMP 97.3
[2022-09-02 06:22] LABS: GLUCOMETER DEV NAME(LOC) 3E.C; GLUCOSE,POINT OF CARE 136 MG/DL (70-110)
[2022-09-02] MEDS: INSULIN LISPRO 100 UNITS/ML SQ PRN ×4 (06:37→21:34)
[2022-09-02] MEDS: LEVOTHYROXINE SODIUM 75 MCG TABLET PO SCH (06:52)
[2022-09-02] MEDS: MetFORMIN HCL 500 MG TABLET PO SCH ×2 (06:52→16:51)
[2022-09-02] MEDS: BENZTROPINE MESYLATE 1 MG TABLET PO SCH ×2 (08:09→16:51)
[2022-09-02] MEDS: MULTIVITAMINS WITH MINERALS, THERAPEUTIC TABLET PO SCH (08:09)
[2022-09-02] MEDS: LACTULOSE 20 GM/30 ML SOLUTION UDCUP PO SCH (08:09)
[2022-09-02 10:03] VITALS: BP 147/79; PULSE 93; RESP 20; TEMP 97.1
[2022-09-02 11:51] LABS: GLUCOMETER DEV NAME(LOC) 3E.C; GLUCOSE,POINT OF CARE 168 MG/DL (70-110)
[2022-09-02 12:22] VITALS: TEMP 97.8
[2022-09-02 16:29] VITALS: BP 139/80; PULSE 77; RESP 17; TEMP 97.6
[2022-09-02 16:46] LABS: GLUCOMETER DEV NAME(LOC) 3E.C; GLUCOSE,POINT OF CARE 165 MG/DL (70-110)
[2022-09-02] MEDS: ZOLPIDEM TARTRATE 10 MG TABLET PO PRN (20:08)
[2022-09-02 20:16] LABS: GLUCOMETER DEV NAME(LOC) 3E.C; GLUCOSE,POINT OF CARE 178 MG/DL (70-110)
[2022-09-02 20:52] VITALS: BP 132/75; PULSE 80; RESP 18; TEMP 97.8
[2022-09-02] MEDS: HALOPERIDOL 10 MG TABLET PO SCH (21:07)
[2022-09-02] MEDS: LITHIUM CARBONATE 300 MG CAPSULE PO SCH (21:07)
[2022-09-02] MEDS: ATORVASTATIN CALCIUM 40 MG TABLET PO SCH (21:07)
[2022-09-03] MEDS: HALOPERIDOL 5 MG TABLET PO PRN (03:29)
[2022-09-03] MEDS: LORazepam 2 MG TABLET PO PRN ×2 (03:29→20:02)
[2022-09-03 05:38] VITALS: RESP 18
[2022-09-03 06:06] LABS: GLUCOMETER DEV NAME(LOC) 3E.C; GLUCOSE,POINT OF CARE 143 MG/DL (70-110)
[2022-09-03] MEDS: MetFORMIN HCL 500 MG TABLET PO SCH ×2 (06:38→17:26)
[2022-09-03] MEDS: LEVOTHYROXINE SODIUM 75 MCG TABLET PO SCH (06:38)
[2022-09-03] MEDS: INSULIN LISPRO 100 UNITS/ML SQ PRN ×3 (06:39→17:26)
[2022-09-03] MEDS: MULTIVITAMINS WITH MINERALS, THERAPEUTIC TABLET PO SCH (08:02)
[2022-09-03] MEDS: LACTULOSE 20 GM/30 ML SOLUTION UDCUP PO SCH (08:02)
[2022-09-03] MEDS: BENZTROPINE MESYLATE 1 MG TABLET PO SCH ×2 (08:03→17:26)
[2022-09-03 09:23] VITALS: BP 112/65; PULSE 66; RESP 17; TEMP 97.9
[2022-09-03 11:36] LABS: GLUCOMETER DEV NAME(LOC) 3E.C; GLUCOSE,POINT OF CARE 161 MG/DL (70-110)
[2022-09-03 13:12] VITALS: TEMP 98
[2022-09-03 16:09] VITALS: BP 130/70; PULSE 67; RESP 16; TEMP 97.2
[2022-09-03 16:31] LABS: GLUCOMETER DEV NAME(LOC) 3E.C; GLUCOSE,POINT OF CARE 144 MG/DL (70-110)
[2022-09-03] MEDS: ZOLPIDEM TARTRATE 10 MG TABLET PO PRN (20:02)
[2022-09-03] MEDS: ATORVASTATIN CALCIUM 40 MG TABLET PO SCH (20:15)
[2022-09-03] MEDS: HALOPERIDOL 10 MG TABLET PO SCH (20:15)
[2022-09-03] MEDS: LITHIUM CARBONATE 300 MG CAPSULE PO SCH (20:15)
[2022-09-03 20:30] VITALS: BP 122/77; PULSE 77; RESP 18; TEMP 98.1
[2022-09-04] MEDS: MetFORMIN HCL 500 MG TABLET PO SCH ×2 (06:40→18:16)
[2022-09-04] MEDS: LEVOTHYROXINE SODIUM 75 MCG TABLET PO SCH (06:40)
[2022-09-04 06:41] LABS: GLUCOMETER DEV NAME(LOC) 3E.C; GLUCOSE,POINT OF CARE 158 MG/DL (70-110)
[2022-09-04] MEDS: INSULIN LISPRO 100 UNITS/ML SQ PRN ×3 (06:44→18:17)
[2022-09-04 08:00] VITALS: BP 140/74; PULSE 83; RESP 18; TEMP 97.7
[2022-09-04] MEDS: BENZTROPINE MESYLATE 1 MG TABLET PO SCH ×2 (09:27→18:16)
[2022-09-04] MEDS: MULTIVITAMINS WITH MINERALS, THERAPEUTIC TABLET PO SCH (09:27)
[2022-09-04] MEDS: LACTULOSE 20 GM/30 ML SOLUTION UDCUP PO SCH (09:27)
[2022-09-04 11:30] LABS: GLUCOMETER DEV NAME(LOC) 3E.C; GLUCOSE,POINT OF CARE 149 MG/DL (70-110)
[2022-09-04 12:00] VITALS: TEMP 97.2
[2022-09-04 16:00] VITALS: BP 141/64; PULSE 72; RESP 18; TEMP 97.6
[2022-09-04 16:31] LABS: GLUCOMETER DEV NAME(LOC) 3E.C; GLUCOSE,POINT OF CARE 120 MG/DL (70-110)
[2022-09-04 20:41] VITALS: BP 135/72; PULSE 82; RESP 21; TEMP 98
[2022-09-04] MEDS: ATORVASTATIN CALCIUM 40 MG TABLET PO SCH (20:57)
[2022-09-04] MEDS: LITHIUM CARBONATE 300 MG CAPSULE PO SCH (20:57)
[2022-09-04] MEDS: HALOPERIDOL 10 MG TABLET PO SCH (20:57)
[2022-09-04 21:00] LABS: GLUCOMETER DEV NAME(LOC) 3E.C; GLUCOSE,POINT OF CARE 114 MG/DL (70-110)
[2022-09-04] MEDS: LORazepam 2 MG TABLET PO PRN (21:50)
[2022-09-04] MEDS: ZOLPIDEM TARTRATE 10 MG TABLET PO PRN (21:50)
[2022-09-05 05:33] VITALS: RESP 18; TEMP 97.5
[2022-09-05 05:36] LABS: GLUCOMETER DEV NAME(LOC) 3E.C; GLUCOSE,POINT OF CARE 140 MG/DL (70-110)
[2022-09-05] MEDS: LEVOTHYROXINE SODIUM 75 MCG TABLET PO SCH (06:59)
[2022-09-05] MEDS: MetFORMIN HCL 500 MG TABLET PO SCH ×2 (07:00→17:05)
[2022-09-05] MEDS: LACTULOSE 20 GM/30 ML SOLUTION UDCUP PO SCH (08:36)
[2022-09-05] MEDS: BENZTROPINE MESYLATE 1 MG TABLET PO SCH ×2 (08:36→17:06)
[2022-09-05] MEDS: MULTIVITAMINS WITH MINERALS, THERAPEUTIC TABLET PO SCH (08:36)
[2022-09-05 08:55] VITALS: BP 131/77; PULSE 87; RESP 18; TEMP 97.7
[2022-09-05] MEDS: INSULIN LISPRO 100 UNITS/ML SQ PRN ×2 (11:46→17:08)
[2022-09-05 11:47] LABS: GLUCOMETER DEV NAME(LOC) 3E.C; GLUCOSE,POINT OF CARE 149 MG/DL (70-110)
[2022-09-05 12:21] VITALS: TEMP 97.8
[2022-09-05 16:26] LABS: GLUCOMETER DEV NAME(LOC) 3E.C; GLUCOSE,POINT OF CARE 152 MG/DL (70-110)
[2022-09-05 16:32] VITALS: BP 149/82; PULSE 80; RESP 19; TEMP 98
[2022-09-05] MEDS: HALOPERIDOL 5 MG TABLET PO PRN (19:05)
[2022-09-05] MEDS: LORazepam 2 MG TABLET PO PRN (19:05)
[2022-09-05 21:00] VITALS: BP 120/78; PULSE 82; RESP 18; TEMP 97.4
[2022-09-05 21:11] LABS: GLUCOMETER DEV NAME(LOC) 3E.C; GLUCOSE,POINT OF CARE 104 MG/DL (70-110)
[2022-09-05] MEDS: ATORVASTATIN CALCIUM 40 MG TABLET PO SCH (21:37)
[2022-09-05] MEDS: LITHIUM CARBONATE 300 MG CAPSULE PO SCH (21:37)
[2022-09-05] MEDS: ZOLPIDEM TARTRATE 10 MG TABLET PO PRN (21:38)
[2022-09-05] MEDS: HALOPERIDOL 10 MG TABLET PO SCH (21:40)
[2022-09-06 00:13] VITALS: RESP 18
[2022-09-06 04:13] VITALS: RESP 17
[2022-09-06 05:36] LABS: GLUCOMETER DEV NAME(LOC) 3E.C; GLUCOSE,POINT OF CARE 116 MG/DL (70-110)
[2022-09-06] MEDS: MetFORMIN HCL 500 MG TABLET PO SCH ×2 (06:35→17:29)
[2022-09-06] MEDS: LEVOTHYROXINE SODIUM 75 MCG TABLET PO SCH (06:36)
[2022-09-06] MEDS: MULTIVITAMINS WITH MINERALS, THERAPEUTIC TABLET PO SCH (08:39)
[2022-09-06] MEDS: BENZTROPINE MESYLATE 1 MG TABLET PO SCH ×2 (08:39→16:40)
[2022-09-06] MEDS: LACTULOSE 20 GM/30 ML SOLUTION UDCUP PO SCH (08:40)
[2022-09-06 09:06] VITALS: BP 129/66; PULSE 62; RESP 17; TEMP 98
[2022-09-06 11:32] LABS: GLUCOMETER DEV NAME(LOC) 3E.C; GLUCOSE,POINT OF CARE 129 MG/DL (70-110)
[2022-09-06 12:23] VITALS: TEMP 97.4
[2022-09-06 16:21] VITALS: BP 135/71; PULSE 59; RESP 18; TEMP 98
[2022-09-06 16:26] LABS: GLUCOMETER DEV NAME(LOC) 3E.C; GLUCOSE,POINT OF CARE 135 MG/DL (70-110)
[2022-09-06] MEDS: LORazepam 2 MG TABLET PO PRN (19:35)
[2022-09-06 20:30] LABS: GLUCOMETER DEV NAME(LOC) 3E.C; GLUCOSE,POINT OF CARE 134 MG/DL (70-110)
[2022-09-06 21:01] VITALS: BP 140/80; PULSE 66; RESP 19; TEMP 97.1
[2022-09-06] MEDS: LITHIUM CARBONATE 300 MG CAPSULE PO SCH (21:11)
[2022-09-06] MEDS: HALOPERIDOL 10 MG TABLET PO SCH (21:11)
[2022-09-06] MEDS: ATORVASTATIN CALCIUM 40 MG TABLET PO SCH (21:11)
[2022-09-06] MEDS: ZOLPIDEM TARTRATE 10 MG TABLET PO PRN (21:11)
[2022-09-07] VITALS (7 sets, daily range): BP systolic 123–151; BP diastolic 68–80; PULSE 63–71; RESP 17–19; TEMP 97.5–98.3
[2022-09-07 05:31] LABS: GLUCOMETER DEV NAME(LOC) 3E.C; GLUCOSE,POINT OF CARE 157 MG/DL (70-110)
[2022-09-07] MEDS: MetFORMIN HCL 500 MG TABLET PO SCH ×2 (06:40→16:52)
[2022-09-07] MEDS: LEVOTHYROXINE SODIUM 75 MCG TABLET PO SCH (06:40)
[2022-09-07] MEDS: LACTULOSE 20 GM/30 ML SOLUTION UDCUP PO SCH (08:13)
[2022-09-07] MEDS: MULTIVITAMINS WITH MINERALS, THERAPEUTIC TABLET PO SCH (08:13)
[2022-09-07] MEDS: BENZTROPINE MESYLATE 1 MG TABLET PO SCH ×2 (08:13→16:09)
[2022-09-07 11:16] LABS: GLUCOMETER DEV NAME(LOC) 3E.C; GLUCOSE,POINT OF CARE 133 MG/DL (70-110)
[2022-09-07 16:21] LABS: GLUCOMETER DEV NAME(LOC) 3E.C; GLUCOSE,POINT OF CARE 122 MG/DL (70-110)
[2022-09-07 20:31] LABS: GLUCOMETER DEV NAME(LOC) 3E.C; GLUCOSE,POINT OF CARE 139 MG/DL (70-110)
[2022-09-07] MEDS: ATORVASTATIN CALCIUM 40 MG TABLET PO SCH (20:31)
[2022-09-07] MEDS: HALOPERIDOL 10 MG TABLET PO SCH (20:31)
[2022-09-07] MEDS: LITHIUM CARBONATE 300 MG CAPSULE PO SCH (20:31)
[2022-09-07] MEDS: ZOLPIDEM TARTRATE 10 MG TABLET PO PRN (20:58)
[2022-09-07] MEDS: LORazepam 2 MG TABLET PO PRN (20:58)
[2022-09-08 00:06] VITALS: RESP 18
[2022-09-08 04:07] VITALS: RESP 17
[2022-09-08 05:56] LABS: GLUCOMETER DEV NAME(LOC) 3E.C; GLUCOSE,POINT OF CARE 163 MG/DL (70-110)
[2022-09-08] MEDS: MetFORMIN HCL 500 MG TABLET PO SCH ×2 (06:35→17:13)
[2022-09-08] MEDS: LEVOTHYROXINE SODIUM 75 MCG TABLET PO SCH (06:35)
[2022-09-08] MEDS: INSULIN LISPRO 100 UNITS/ML SQ PRN ×3 (06:36→16:59)
[2022-09-08 07:51] LABS: COVID AG,FIA SOURCE NASAL SWAB
[2022-09-08 08:00] VITALS: BP 121/62; PULSE 72; RESP 19; TEMP 97.8
[2022-09-08] MEDS: MULTIVITAMINS WITH MINERALS, THERAPEUTIC TABLET PO SCH (08:04)
[2022-09-08] MEDS: BENZTROPINE MESYLATE 1 MG TABLET PO SCH ×2 (08:04→16:13)
[2022-09-08] MEDS: LACTULOSE 20 GM/30 ML SOLUTION UDCUP PO SCH (08:04)
[2022-09-08 11:31] LABS: GLUCOMETER DEV NAME(LOC) 3E.C; GLUCOSE,POINT OF CARE 153 MG/DL (70-110)
[2022-09-08 12:12] VITALS: TEMP 98
[2022-09-08 16:00] VITALS: BP 125/76; PULSE 68; RESP 18; TEMP 97.7
[2022-09-08 17:01] LABS: GLUCOMETER DEV NAME(LOC) 3E.C; GLUCOSE,POINT OF CARE 174 MG/DL (70-110)
[2022-09-08 20:41] LABS: GLUCOMETER DEV NAME(LOC) 3E.C; GLUCOSE,POINT OF CARE 133 MG/DL (70-110)
[2022-09-08] MEDS: ATORVASTATIN CALCIUM 40 MG TABLET PO SCH (21:13)
[2022-09-08] MEDS: ZOLPIDEM TARTRATE 10 MG TABLET PO PRN (21:13)
[2022-09-08] MEDS: LITHIUM CARBONATE 300 MG CAPSULE PO SCH (21:14)
[2022-09-08] MEDS: HALOPERIDOL 10 MG TABLET PO SCH (21:14)
[2022-09-08 21:53] VITALS: BP 141/71; PULSE 68; RESP 18; TEMP 97.4
[2022-09-08] MEDS: LORazepam 2 MG TABLET PO PRN (22:20)
[2022-09-09 00:10] VITALS: RESP 18
[2022-09-09 04:09] VITALS: RESP 18
[2022-09-09 05:36] LABS: GLUCOMETER DEV NAME(LOC) 3E.C; GLUCOSE,POINT OF CARE 107 MG/DL (70-110)
[2022-09-09] MEDS: LEVOTHYROXINE SODIUM 75 MCG TABLET PO SCH (06:36)
[2022-09-09] MEDS: MetFORMIN HCL 500 MG TABLET PO SCH ×2 (06:36→17:41)
[2022-09-09 08:53] VITALS: BP 130/75; PULSE 67; RESP 18; TEMP 98
[2022-09-09] MEDS: MULTIVITAMINS WITH MINERALS, THERAPEUTIC TABLET PO SCH (09:18)
[2022-09-09] MEDS: BENZTROPINE MESYLATE 1 MG TABLET PO SCH ×2 (09:18→17:41)
[2022-09-09] MEDS: LACTULOSE 20 GM/30 ML SOLUTION UDCUP PO SCH (09:21)
[2022-09-09] MEDS: INSULIN LISPRO 100 UNITS/ML SQ PRN ×3 (11:51→21:09)
[2022-09-09 11:56] LABS: GLUCOMETER DEV NAME(LOC) 3E.C; GLUCOSE,POINT OF CARE 144 MG/DL (70-110)
[2022-09-09 12:50] VITALS: TEMP 97.6
[2022-09-09 16:23] VITALS: BP 137/69; PULSE 69; RESP 16; TEMP 98
[2022-09-09 16:56] LABS: GLUCOMETER DEV NAME(LOC) 3E.C; GLUCOSE,POINT OF CARE 130 MG/DL (70-110)
[2022-09-09 20:24] VITALS: BP 140/80; PULSE 78; RESP 18; TEMP 97.7
[2022-09-09] MEDS: HALOPERIDOL 10 MG TABLET PO SCH (20:35)
[2022-09-09] MEDS: ATORVASTATIN CALCIUM 40 MG TABLET PO SCH (20:35)
[2022-09-09] MEDS: ZOLPIDEM TARTRATE 10 MG TABLET PO PRN (20:36)
[2022-09-09] MEDS: LITHIUM CARBONATE 300 MG CAPSULE PO SCH (20:36)
[2022-09-09 21:05] LABS: GLUCOMETER DEV NAME(LOC) 3E.C; GLUCOSE,POINT OF CARE 108 MG/DL (70-110)
[2022-09-10] VITALS (8 sets, daily range): BP systolic 135–146; BP diastolic 67–87; PULSE 70–86; RESP 17–18; TEMP 97.3–98.2
[2022-09-10] MEDS: LEVOTHYROXINE SODIUM 75 MCG TABLET PO SCH (06:40)
[2022-09-10] MEDS: MetFORMIN HCL 500 MG TABLET PO SCH ×2 (06:40→16:51)
[2022-09-10] MEDS: INSULIN LISPRO 100 UNITS/ML SQ PRN ×3 (06:41→20:47)
[2022-09-10 07:06] LABS: GLUCOMETER DEV NAME(LOC) 3E.C; GLUCOSE,POINT OF CARE 113 MG/DL (70-110)
[2022-09-10] MEDS: LACTULOSE 20 GM/30 ML SOLUTION UDCUP PO SCH (08:48)
[2022-09-10] MEDS: MULTIVITAMINS WITH MINERALS, THERAPEUTIC TABLET PO SCH (08:48)
[2022-09-10] MEDS: BENZTROPINE MESYLATE 1 MG TABLET PO SCH ×2 (08:48→16:37)
[2022-09-10 10:43] LABS: BASOPHILS % (AUTO) 0.8 % (0.0-2.0); EOSINOPHILS % (AUTO) 4.6 % (1.0-6.0); HEMATOCRIT 33.9 % (41-53); HEMOGLOBIN 11.4 g/dL (13.5-17.5); LYMPHOCYTES # (AUTO) 1.1 K/uL (1.0-4.8); LYMPHOCYTES % (AUTO) 16.5 % (22.0-44.0); MEAN CORPUSCULAR HEMOGLOBIN 32.8 pg (26.0-34.0); MEAN CORPUSCULAR HGB CONC 33.7 G/dL (31.0-37.0); MEAN CORPUSCULAR VOLUME 97 fL (80-100); MONOCYTES # (AUTO) 0.8 K/uL (0.1-1.0); MONOCYTES % (AUTO) 11.3 % (2.0-9.0); NEUTROPHILS # (AUTO) 4.4 K/uL (1.8-7.7); NEUTROPHILS % (AUTO) 66.8 % (40.0-70.0); PLATELET COUNT (AUTO) 163 K/uL (150-450); RED BLOOD CELL COUNT(AUTO) 3.48 MIL/uL (4.50-5.90); RED CELL DISTRIBUTION WIDTH 13.9 % (11.5-14.5)
[2022-09-10 11:46] LABS: GLUCOMETER DEV NAME(LOC) 3E.C; GLUCOSE,POINT OF CARE 147 MG/DL (70-110)
[2022-09-10] MEDS: ACETAMINOPHEN 325 MG TABLET PO PRN (14:54)
[2022-09-10 16:46] LABS: GLUCOMETER DEV NAME(LOC) 3E.C; GLUCOSE,POINT OF CARE 112 MG/DL (70-110)
[2022-09-10] MEDS: HALOPERIDOL 10 MG TABLET PO SCH (20:44)
[2022-09-10] MEDS: ATORVASTATIN CALCIUM 40 MG TABLET PO SCH (20:44)
[2022-09-10] MEDS: LITHIUM CARBONATE 300 MG CAPSULE PO SCH (20:44)
[2022-09-10] MEDS: ZOLPIDEM TARTRATE 10 MG TABLET PO PRN (20:44)
[2022-09-10 21:26] LABS: GLUCOMETER DEV NAME(LOC) 3E.C; GLUCOSE,POINT OF CARE 125 MG/DL (70-110)
[2022-09-11] VITALS (7 sets, daily range): BP systolic 122–148; BP diastolic 66–79; PULSE 72–89; RESP 17–18; TEMP 97.1–98
[2022-09-11] MEDS: ACETAMINOPHEN 325 MG TABLET PO PRN (03:14)
[2022-09-11] MEDS: HALOPERIDOL 5 MG TABLET PO PRN (04:00)
[2022-09-11] MEDS: LORazepam 2 MG TABLET PO PRN ×2 (04:00→20:43)
[2022-09-11] MEDS: MetFORMIN HCL 500 MG TABLET PO SCH ×2 (06:37→17:35)
[2022-09-11] MEDS: LEVOTHYROXINE SODIUM 75 MCG TABLET PO SCH (06:37)
[2022-09-11] MEDS: INSULIN LISPRO 100 UNITS/ML SQ PRN (06:38)
[2022-09-11 07:31] LABS: GLUCOMETER DEV NAME(LOC) 3E.C; GLUCOSE,POINT OF CARE 107 MG/DL (70-110)
[2022-09-11] MEDS: BENZTROPINE MESYLATE 1 MG TABLET PO SCH ×2 (09:17→16:18)
[2022-09-11] MEDS: MULTIVITAMINS WITH MINERALS, THERAPEUTIC TABLET PO SCH (09:17)
[2022-09-11] MEDS: LACTULOSE 20 GM/30 ML SOLUTION UDCUP PO SCH (09:17)
[2022-09-11 11:51] LABS: GLUCOMETER DEV NAME(LOC) 3E.C; GLUCOSE,POINT OF CARE 123 MG/DL (70-110)
[2022-09-11 16:56] LABS: GLUCOMETER DEV NAME(LOC) 3E.C; GLUCOSE,POINT OF CARE 140 MG/DL (70-110)
[2022-09-11 20:26] LABS: GLUCOMETER DEV NAME(LOC) 3E.C; GLUCOSE,POINT OF CARE 117 MG/DL (70-110)
[2022-09-11] MEDS: HALOPERIDOL 10 MG TABLET PO SCH (20:31)
[2022-09-11] MEDS: ATORVASTATIN CALCIUM 40 MG TABLET PO SCH (20:31)
[2022-09-11] MEDS: LITHIUM CARBONATE 300 MG CAPSULE PO SCH (20:31)
[2022-09-11] MEDS: ZOLPIDEM TARTRATE 10 MG TABLET PO PRN (20:43)
[2022-09-12 05:23] VITALS: RESP 18
[2022-09-12 06:26] LABS: GLUCOMETER DEV NAME(LOC) 3E.C; GLUCOSE,POINT OF CARE 159 MG/DL (70-110)
[2022-09-12] MEDS: LEVOTHYROXINE SODIUM 75 MCG TABLET PO SCH (06:40)
[2022-09-12] MEDS: MetFORMIN HCL 500 MG TABLET PO SCH ×2 (06:40→16:33)
[2022-09-12] MEDS: INSULIN LISPRO 100 UNITS/ML SQ PRN ×3 (06:42→17:15)
[2022-09-12] MEDS: LACTULOSE 20 GM/30 ML SOLUTION UDCUP PO SCH (08:33)
[2022-09-12] MEDS: BENZTROPINE MESYLATE 1 MG TABLET PO SCH ×2 (08:33→16:33)
[2022-09-12] MEDS: MULTIVITAMINS WITH MINERALS, THERAPEUTIC TABLET PO SCH (08:33)
[2022-09-12 09:15] VITALS: BP 124/68; PULSE 80; RESP 19; TEMP 97.6
[2022-09-12 11:46] LABS: GLUCOMETER DEV NAME(LOC) 3E.C; GLUCOSE,POINT OF CARE 154 MG/DL (70-110)
[2022-09-12 13:16] VITALS: RESP 18; TEMP 98.1
[2022-09-12 16:27] VITALS: BP 122/64; PULSE 79; RESP 17; TEMP 98.3
[2022-09-12 17:16] LABS: GLUCOMETER DEV NAME(LOC) 3E.C; GLUCOSE,POINT OF CARE 152 MG/DL (70-110)
[2022-09-12] MEDS: LITHIUM CARBONATE 300 MG CAPSULE PO SCH (20:44)
[2022-09-12] MEDS: ATORVASTATIN CALCIUM 40 MG TABLET PO SCH (20:44)
[2022-09-12] MEDS: HALOPERIDOL 10 MG TABLET PO SCH (20:44)
[2022-09-12 21:16] LABS: GLUCOMETER DEV NAME(LOC) 3E.C; GLUCOSE,POINT OF CARE 135 MG/DL (70-110)
[2022-09-12] MEDS: LORazepam 2 MG TABLET PO PRN (21:19)
[2022-09-12] MEDS: ZOLPIDEM TARTRATE 10 MG TABLET PO PRN (21:19)
[2022-09-12 21:37] VITALS: BP 144/60; PULSE 68; RESP 18; TEMP 97.7
[2022-09-13] VITALS (7 sets, daily range): BP systolic 116–147; BP diastolic 62–77; PULSE 72–78; RESP 18–19; TEMP 97.5–98.2
[2022-09-13 05:46] LABS: GLUCOMETER DEV NAME(LOC) 3E.C; GLUCOSE,POINT OF CARE 107 MG/DL (70-110)
[2022-09-13] MEDS: MetFORMIN HCL 500 MG TABLET PO SCH ×2 (06:50→16:16)
[2022-09-13] MEDS: LEVOTHYROXINE SODIUM 75 MCG TABLET PO SCH (06:50)
[2022-09-13] MEDS ORDERED: SODIUM CHLORIDE 0.9% 100 ML ONE (08:38)
[2022-09-13] MEDS ORDERED: IOHEXOL 350 MG/ML 100 ML VIAL ONE (08:38)
[2022-09-13] MEDS: LACTULOSE 20 GM/30 ML SOLUTION UDCUP PO SCH (09:01)
[2022-09-13] MEDS: MULTIVITAMINS WITH MINERALS, THERAPEUTIC TABLET PO SCH (09:01)
[2022-09-13] MEDS: BENZTROPINE MESYLATE 1 MG TABLET PO SCH ×2 (09:01→16:16)
[2022-09-13 11:46] LABS: GLUCOMETER DEV NAME(LOC) 3E.C; GLUCOSE,POINT OF CARE 93 MG/DL (70-110)
[2022-09-13] MEDS: IBUPROFEN 600 MG TABLET PO PRN (16:17)
[2022-09-13 18:12] LABS: GLUCOMETER DEV NAME(LOC) 3E.C; GLUCOSE,POINT OF CARE 135 MG/DL (70-110)
[2022-09-13 21:46] LABS: GLUCOMETER DEV NAME(LOC) 3E.C; GLUCOSE,POINT OF CARE 136 MG/DL (70-110)
[2022-09-13] MEDS: HALOPERIDOL 10 MG TABLET PO SCH (21:54)
[2022-09-13] MEDS: ATORVASTATIN CALCIUM 40 MG TABLET PO SCH (21:55)
[2022-09-13] MEDS: ZOLPIDEM TARTRATE 10 MG TABLET PO PRN (22:38)
[2022-09-13] MEDS: LORazepam 2 MG TABLET PO PRN (22:38)
[2022-09-14 00:35] VITALS: RESP 18
[2022-09-14 04:15] VITALS: RESP 18
[2022-09-14 06:41] LABS: GLUCOMETER DEV NAME(LOC) 3E.C; GLUCOSE,POINT OF CARE 119 MG/DL (70-110)
[2022-09-14] MEDS: LEVOTHYROXINE SODIUM 75 MCG TABLET PO SCH (06:59)
[2022-09-14] MEDS: MetFORMIN HCL 500 MG TABLET PO SCH ×2 (07:00→17:05)
[2022-09-14] MEDS: BENZTROPINE MESYLATE 1 MG TABLET PO SCH ×2 (08:19→17:06)
[2022-09-14] MEDS: LACTULOSE 20 GM/30 ML SOLUTION UDCUP PO SCH (08:19)
[2022-09-14] MEDS: MULTIVITAMINS WITH MINERALS, THERAPEUTIC TABLET PO SCH (08:19)
[2022-09-14] MEDS: LITHIUM CARBONATE 600 MG CAPSULE PO SCH ×2 (08:19→17:06)
[2022-09-14 08:32] VITALS: TEMP 97.6
[2022-09-14 12:16] LABS: GLUCOMETER DEV NAME(LOC) 3E.C; GLUCOSE,POINT OF CARE 113 MG/DL (70-110)
[2022-09-14 12:53] VITALS: TEMP 97.6
[2022-09-14 16:41] LABS: GLUCOMETER DEV NAME(LOC) 3E.C; GLUCOSE,POINT OF CARE 170 MG/DL (70-110)
[2022-09-14 17:12] VITALS: BP 127/60; PULSE 69; RESP 18; TEMP 97.8
[2022-09-14] MEDS: INSULIN LISPRO 100 UNITS/ML SQ PRN ×2 (17:47→23:45)
[2022-09-14 20:05] VITALS: BP 123/60; PULSE 75; RESP 18; TEMP 97.6
[2022-09-14] MEDS: ZOLPIDEM TARTRATE 10 MG TABLET PO PRN (21:00)
[2022-09-14] MEDS: LORazepam 2 MG TABLET PO PRN (21:00)
[2022-09-14] MEDS: ATORVASTATIN CALCIUM 40 MG TABLET PO SCH (21:01)
[2022-09-14] MEDS: HALOPERIDOL 10 MG TABLET PO SCH (21:02)
[2022-09-14 21:06] LABS: GLUCOMETER DEV NAME(LOC) 3E.C; GLUCOSE,POINT OF CARE 149 MG/DL (70-110)
[2022-09-15 04:39] VITALS: RESP 18
[2022-09-15 05:41] LABS: GLUCOMETER DEV NAME(LOC) 3EX.2; GLUCOSE,POINT OF CARE 122 MG/DL (70-110)
[2022-09-15] MEDS: MetFORMIN HCL 500 MG TABLET PO SCH ×2 (07:00→16:20)
[2022-09-15] MEDS: LEVOTHYROXINE SODIUM 75 MCG TABLET PO SCH (07:00)
[2022-09-15] MEDS: INSULIN LISPRO 100 UNITS/ML SQ PRN ×2 (07:09→11:43)
[2022-09-15] MEDS: LACTULOSE 20 GM/30 ML SOLUTION UDCUP PO SCH (08:40)
[2022-09-15] MEDS: MULTIVITAMINS WITH MINERALS, THERAPEUTIC TABLET PO SCH (08:40)
[2022-09-15] MEDS: BENZTROPINE MESYLATE 1 MG TABLET PO SCH ×2 (08:40→16:20)
[2022-09-15] MEDS: LITHIUM CARBONATE 600 MG CAPSULE PO SCH ×2 (08:41→16:20)
[2022-09-15 09:31] VITALS: BP 105/62; PULSE 78; RESP 18; TEMP 97.9
[2022-09-15 11:46] LABS: GLUCOMETER DEV NAME(LOC) 3E.C; GLUCOSE,POINT OF CARE 117 MG/DL (70-110)
[2022-09-15 12:07] VITALS: TEMP 97.4
[2022-09-15 16:20] LABS: GLUCOMETER DEV NAME(LOC) 3E.C; GLUCOSE,POINT OF CARE 124 MG/DL (70-110)
[2022-09-15 16:22] VITALS: BP 156/61; PULSE 61; RESP 17; TEMP 97.8
[2022-09-15] MEDS: HALOPERIDOL 10 MG TABLET PO SCH (20:16)
[2022-09-15] MEDS: ATORVASTATIN CALCIUM 40 MG TABLET PO SCH (20:16)
[2022-09-15] MEDS: LORazepam 2 MG TABLET PO PRN (20:29)
[2022-09-15] MEDS: ZOLPIDEM TARTRATE 10 MG TABLET PO PRN (20:29)
[2022-09-15 20:40] LABS: GLUCOMETER DEV NAME(LOC) 3E.C; GLUCOSE,POINT OF CARE 110 MG/DL (70-110)
[2022-09-15 21:08] VITALS: BP 138/79; PULSE 73; RESP 18; TEMP 98
[2022-09-16 02:47] VITALS: RESP 18
[2022-09-16 05:02] VITALS: RESP 18
[2022-09-16 06:36] LABS: GLUCOMETER DEV NAME(LOC) 3E.C; GLUCOSE,POINT OF CARE 131 MG/DL (70-110)
[2022-09-16] MEDS: LEVOTHYROXINE SODIUM 75 MCG TABLET PO SCH (06:37)
[2022-09-16] MEDS: MetFORMIN HCL 500 MG TABLET PO SCH ×2 (06:37→16:56)
[2022-09-16] MEDS: BENZTROPINE MESYLATE 1 MG TABLET PO SCH ×2 (08:46→16:15)
[2022-09-16] MEDS: LITHIUM CARBONATE 600 MG CAPSULE PO SCH ×2 (08:46→16:15)
[2022-09-16] MEDS: LACTULOSE 20 GM/30 ML SOLUTION UDCUP PO SCH (08:47)
[2022-09-16] MEDS: MULTIVITAMINS WITH MINERALS, THERAPEUTIC TABLET PO SCH (08:47)
[2022-09-16 09:00] VITALS: BP 116/56; PULSE 67; RESP 18; TEMP 97.3
[2022-09-16 12:00] VITALS: TEMP 97
[2022-09-16 16:00] VITALS: BP 144/73; PULSE 70; RESP 17; TEMP 98
[2022-09-16] MEDS: INSULIN LISPRO 100 UNITS/ML SQ PRN (17:10)
[2022-09-16 17:16] LABS: GLUCOMETER DEV NAME(LOC) 3E.C; GLUCOSE,POINT OF CARE 144 MG/DL (70-110)
[2022-09-16 20:51] VITALS: BP 129/70; PULSE 78; RESP 18; TEMP 98.1
[2022-09-16] MEDS: LORazepam 2 MG TABLET PO PRN (21:06)
[2022-09-16] MEDS: ZOLPIDEM TARTRATE 10 MG TABLET PO PRN (21:06)
[2022-09-16] MEDS: HALOPERIDOL 10 MG TABLET PO SCH (21:08)
[2022-09-16] MEDS: ATORVASTATIN CALCIUM 40 MG TABLET PO SCH (21:08)
[2022-09-17 05:33] VITALS: RESP 18
[2022-09-17 06:16] LABS: GLUCOMETER DEV NAME(LOC) 3E.C; GLUCOSE,POINT OF CARE 105 MG/DL (70-110)
[2022-09-17] MEDS: MetFORMIN HCL 500 MG TABLET PO SCH ×2 (06:42→17:47)
[2022-09-17] MEDS: LEVOTHYROXINE SODIUM 75 MCG TABLET PO SCH (06:42)
[2022-09-17 08:04] VITALS: BP 129/65; PULSE 69; RESP 18; TEMP 98
[2022-09-17] MEDS: LITHIUM CARBONATE 600 MG CAPSULE PO SCH ×2 (08:39→16:28)
[2022-09-17] MEDS: BENZTROPINE MESYLATE 1 MG TABLET PO SCH ×2 (08:39→16:28)
[2022-09-17] MEDS: MULTIVITAMINS WITH MINERALS, THERAPEUTIC TABLET PO SCH (08:39)
[2022-09-17] MEDS: LACTULOSE 20 GM/30 ML SOLUTION UDCUP PO SCH (08:40)
[2022-09-17 12:00] VITALS: TEMP 97.6
[2022-09-17 16:15] VITALS: BP 132/76; PULSE 67; RESP 19; TEMP 97.8
[2022-09-17 16:31] LABS: GLUCOMETER DEV NAME(LOC) 3E.C; GLUCOSE,POINT OF CARE 151 MG/DL (70-110)
[2022-09-17] MEDS: INSULIN LISPRO 100 UNITS/ML SQ PRN (17:10)
[2022-09-17 20:37] VITALS: BP 118/60; PULSE 65; RESP 18; TEMP 97.8
[2022-09-17 20:41] LABS: GLUCOMETER DEV NAME(LOC) 3E.C; GLUCOSE,POINT OF CARE 101 MG/DL (70-110)
[2022-09-17] MEDS: HALOPERIDOL 10 MG TABLET PO SCH (21:30)
[2022-09-17] MEDS: ATORVASTATIN CALCIUM 40 MG TABLET PO SCH (21:30)
[2022-09-17] MEDS: LORazepam 2 MG TABLET PO PRN (22:46)
[2022-09-17] MEDS: ZOLPIDEM TARTRATE 10 MG TABLET PO PRN (22:46)
[2022-09-18 05:34] VITALS: RESP 18; TEMP 97.2
[2022-09-18 06:21] LABS: GLUCOMETER DEV NAME(LOC) 3E.C; GLUCOSE,POINT OF CARE 144 MG/DL (70-110)
[2022-09-18] MEDS: INSULIN LISPRO 100 UNITS/ML SQ PRN (06:43)
[2022-09-18] MEDS: LEVOTHYROXINE SODIUM 75 MCG TABLET PO SCH (06:58)
[2022-09-18] MEDS: MetFORMIN HCL 500 MG TABLET PO SCH ×2 (06:58→17:35)
[2022-09-18] MEDS: BENZTROPINE MESYLATE 1 MG TABLET PO SCH ×2 (08:41→17:04)
[2022-09-18] MEDS: LITHIUM CARBONATE 600 MG CAPSULE PO SCH ×2 (08:41→17:03)
[2022-09-18] MEDS: MULTIVITAMINS WITH MINERALS, THERAPEUTIC TABLET PO SCH (08:41)
[2022-09-18] MEDS: LACTULOSE 20 GM/30 ML SOLUTION UDCUP PO SCH (08:41)
[2022-09-18 09:24] VITALS: BP 115/61; PULSE 61; RESP 18; TEMP 97.2
[2022-09-18 16:26] LABS: GLUCOMETER DEV NAME(LOC) 3E.C; GLUCOSE,POINT OF CARE 124 MG/DL (70-110)
[2022-09-18 16:35] VITALS: BP 118/60; PULSE 69; RESP 17; TEMP 97.6
[2022-09-18 21:01] VITALS: BP 119/71; PULSE 62; RESP 18; TEMP 97.1
[2022-09-18] MEDS: ATORVASTATIN CALCIUM 40 MG TABLET PO SCH (21:16)
[2022-09-18] MEDS: HALOPERIDOL 10 MG TABLET PO SCH (21:16)
[2022-09-19 04:21] VITALS: RESP 18
[2022-09-19 05:46] LABS: GLUCOMETER DEV NAME(LOC) 3E.I 2; GLUCOSE,POINT OF CARE 85 MG/DL (70-110)
[2022-09-19] MEDS: LEVOTHYROXINE SODIUM 75 MCG TABLET PO SCH (07:06)
[2022-09-19] MEDS: INSULIN LISPRO 100 UNITS/ML SQ PRN ×2 (07:06→17:21)
[2022-09-19] MEDS: MetFORMIN HCL 500 MG TABLET PO SCH ×2 (07:07→17:05)
[2022-09-19 07:42] LABS: COVID AG,FIA SOURCE NASAL SWAB
[2022-09-19] MEDS: MULTIVITAMINS WITH MINERALS, THERAPEUTIC TABLET PO SCH (08:51)
[2022-09-19] MEDS: BENZTROPINE MESYLATE 1 MG TABLET PO SCH ×2 (08:51→17:05)
[2022-09-19] MEDS: LACTULOSE 20 GM/30 ML SOLUTION UDCUP PO SCH (08:51)
[2022-09-19] MEDS: LITHIUM CARBONATE 600 MG CAPSULE PO SCH ×2 (08:52→17:05)
[2022-09-19 08:57] VITALS: BP 122/76; PULSE 65; RESP 18; TEMP 98.1
[2022-09-19 12:20] VITALS: TEMP 97
[2022-09-19 16:18] VITALS: BP 145/77; PULSE 64; RESP 17; TEMP 97.6
[2022-09-19 16:36] LABS: GLUCOMETER DEV NAME(LOC) 3E.I 2; GLUCOSE,POINT OF CARE 102 MG/DL (70-110)
[2022-09-19 20:35] VITALS: BP 136/77; PULSE 64; RESP 17; TEMP 98.4
[2022-09-19] MEDS: HALOPERIDOL 10 MG TABLET PO SCH (20:48)
[2022-09-19] MEDS: ATORVASTATIN CALCIUM 40 MG TABLET PO SCH (20:48)
[2022-09-20 01:42] VITALS: RESP 18
[2022-09-20 05:39] VITALS: RESP 18
[2022-09-20 05:42] LABS: GLUCOMETER DEV NAME(LOC) 3E.C; GLUCOSE,POINT OF CARE 84 MG/DL (70-110)
[2022-09-20] MEDS: LEVOTHYROXINE SODIUM 75 MCG TABLET PO SCH (07:01)
[2022-09-20] MEDS: MetFORMIN HCL 500 MG TABLET PO SCH ×2 (07:01→17:38)
[2022-09-20] MEDS: MULTIVITAMINS WITH MINERALS, THERAPEUTIC TABLET PO SCH (08:04)
[2022-09-20] MEDS: LITHIUM CARBONATE 600 MG CAPSULE PO SCH ×2 (08:04→16:25)
[2022-09-20] MEDS: LACTULOSE 20 GM/30 ML SOLUTION UDCUP PO SCH (08:04)
[2022-09-20] MEDS: BENZTROPINE MESYLATE 1 MG TABLET PO SCH ×2 (08:04→16:26)
[2022-09-20 09:00] VITALS: BP 107/57; PULSE 62; RESP 18; TEMP 97.7
[2022-09-20 12:08] VITALS: TEMP 98
[2022-09-20 16:43] VITALS: BP 140/90; PULSE 80; RESP 16; TEMP 98.1
[2022-09-20 16:46] LABS: GLUCOMETER DEV NAME(LOC) 3E.C; GLUCOSE,POINT OF CARE 138 MG/DL (70-110)
[2022-09-20] MEDS: ATORVASTATIN CALCIUM 40 MG TABLET PO SCH (20:43)
[2022-09-20] MEDS: HALOPERIDOL 10 MG TABLET PO SCH (20:43)
[2022-09-20 20:45] VITALS: BP 135/77; PULSE 84; RESP 18; TEMP 98.1
[2022-09-21 00:07] VITALS: RESP 18
[2022-09-21 04:06] VITALS: RESP 18
[2022-09-21 06:36] LABS: GLUCOMETER DEV NAME(LOC) 3E.C; GLUCOSE,POINT OF CARE 89 MG/DL (70-110)
[2022-09-21] MEDS: LEVOTHYROXINE SODIUM 75 MCG TABLET PO SCH (06:40)
[2022-09-21] MEDS: INSULIN LISPRO 100 UNITS/ML SQ PRN (06:41)
[2022-09-21] MEDS: MetFORMIN HCL 500 MG TABLET PO SCH ×2 (06:55→17:31)
[2022-09-21 08:26] VITALS: BP 140/78; PULSE 64; RESP 18; TEMP 97.9
[2022-09-21] MEDS: LITHIUM CARBONATE 600 MG CAPSULE PO SCH ×2 (08:58→17:15)
[2022-09-21] MEDS: LACTULOSE 20 GM/30 ML SOLUTION UDCUP PO SCH (08:59)
[2022-09-21] MEDS: BENZTROPINE MESYLATE 1 MG TABLET PO SCH ×2 (08:59→17:15)
[2022-09-21] MEDS: MULTIVITAMINS WITH MINERALS, THERAPEUTIC TABLET PO SCH (08:59)
[2022-09-21 12:23] VITALS: TEMP 97.3
[2022-09-21 16:17] VITALS: BP 118/71; PULSE 61; RESP 18; TEMP 98
[2022-09-21 16:36] LABS: GLUCOMETER DEV NAME(LOC) 3E.C; GLUCOSE,POINT OF CARE 120 MG/DL (70-110)
[2022-09-21] MEDS: ATORVASTATIN CALCIUM 40 MG TABLET PO SCH (20:43)
[2022-09-21] MEDS: HALOPERIDOL 10 MG TABLET PO SCH (20:43)
[2022-09-21 20:58] VITALS: BP 120/66; PULSE 62; RESP 17; TEMP 98
[2022-09-22] VITALS (7 sets, daily range): BP systolic 111–138; BP diastolic 62–71; PULSE 65–79; RESP 17–18; TEMP 97.2–98.2
[2022-09-22 06:26] LABS: GLUCOMETER DEV NAME(LOC) 3E.C; GLUCOSE,POINT OF CARE 97 MG/DL (70-110)
[2022-09-22] MEDS: LEVOTHYROXINE SODIUM 75 MCG TABLET PO SCH (06:33)
[2022-09-22] MEDS: INSULIN LISPRO 100 UNITS/ML SQ PRN (06:45)
[2022-09-22] MEDS: MetFORMIN HCL 500 MG TABLET PO SCH ×2 (06:45→16:32)
[2022-09-22] MEDS: LITHIUM CARBONATE 600 MG CAPSULE PO SCH ×2 (08:52→16:32)
[2022-09-22] MEDS: MULTIVITAMINS WITH MINERALS, THERAPEUTIC TABLET PO SCH (08:52)
[2022-09-22] MEDS: LACTULOSE 20 GM/30 ML SOLUTION UDCUP PO SCH (08:52)
[2022-09-22] MEDS: BENZTROPINE MESYLATE 1 MG TABLET PO SCH ×2 (08:52→16:32)
[2022-09-22 16:21] LABS: GLUCOMETER DEV NAME(LOC) 3E.C; GLUCOSE,POINT OF CARE 140 MG/DL (70-110)
[2022-09-22] MEDS: LORazepam 2 MG TABLET PO PRN (20:11)
[2022-09-22] MEDS: ATORVASTATIN CALCIUM 40 MG TABLET PO SCH (21:07)
[2022-09-22] MEDS: ZOLPIDEM TARTRATE 10 MG TABLET PO PRN (21:08)
[2022-09-22] MEDS: HALOPERIDOL 10 MG TABLET PO SCH (21:10)
[2022-09-23 00:14] VITALS: RESP 18
[2022-09-23 04:12] VITALS: RESP 18
[2022-09-23 05:41] LABS: GLUCOMETER DEV NAME(LOC) 3E.C; GLUCOSE,POINT OF CARE 100 MG/DL (70-110)
[2022-09-23] MEDS: MetFORMIN HCL 500 MG TABLET PO SCH ×2 (06:33→18:14)
[2022-09-23] MEDS: LEVOTHYROXINE SODIUM 75 MCG TABLET PO SCH (06:33)
[2022-09-23 08:00] VITALS: BP 102/65; PULSE 81; RESP 19; TEMP 97.7
[2022-09-23] MEDS: MULTIVITAMINS WITH MINERALS, THERAPEUTIC TABLET PO SCH (09:26)
[2022-09-23] MEDS: LITHIUM CARBONATE 600 MG CAPSULE PO SCH ×2 (09:26→18:14)
[2022-09-23] MEDS: LACTULOSE 20 GM/30 ML SOLUTION UDCUP PO SCH (09:26)
[2022-09-23] MEDS: BENZTROPINE MESYLATE 1 MG TABLET PO SCH ×2 (09:26→18:14)
[2022-09-23 11:42] LABS: GLUCOMETER DEV NAME(LOC) 3E.C; GLUCOSE,POINT OF CARE 106 MG/DL (70-110)
[2022-09-23 12:08] VITALS: TEMP 98
[2022-09-23] MEDS: INSULIN LISPRO 100 UNITS/ML SQ PRN ×2 (13:41→18:16)
[2022-09-23 17:26] LABS: GLUCOMETER DEV NAME(LOC) 3E.C; GLUCOSE,POINT OF CARE 109 MG/DL (70-110)
[2022-09-23 18:17] VITALS: BP 118/66; PULSE 65; RESP 18; TEMP 97.8
[2022-09-23] MEDS: HALOPERIDOL 10 MG TABLET PO SCH (20:47)
[2022-09-23] MEDS: ATORVASTATIN CALCIUM 40 MG TABLET PO SCH (20:47)
[2022-09-23 21:03] VITALS: BP 125/62; PULSE 62; RESP 17; TEMP 98.1
[2022-09-24 00:06] VITALS: RESP 18
[2022-09-24 05:14] VITALS: RESP 18
[2022-09-24 06:16] LABS: GLUCOMETER DEV NAME(LOC) 3E.C; GLUCOSE,POINT OF CARE 95 MG/DL (70-110)
[2022-09-24] MEDS: MetFORMIN HCL 500 MG TABLET PO SCH ×2 (06:35→16:18)
[2022-09-24] MEDS: LEVOTHYROXINE SODIUM 75 MCG TABLET PO SCH (06:35)
[2022-09-24 09:15] VITALS: BP 150/90; PULSE 70; RESP 17; TEMP 98.1
[2022-09-24] MEDS: MULTIVITAMINS WITH MINERALS, THERAPEUTIC TABLET PO SCH (09:35)
[2022-09-24] MEDS: LITHIUM CARBONATE 600 MG CAPSULE PO SCH ×2 (09:35→16:18)
[2022-09-24] MEDS: LACTULOSE 20 GM/30 ML SOLUTION UDCUP PO SCH (09:35)
[2022-09-24] MEDS: BENZTROPINE MESYLATE 1 MG TABLET PO SCH ×2 (09:35→16:18)
[2022-09-24 13:50] VITALS: TEMP 97.6
[2022-09-24] MEDS: INSULIN LISPRO 100 UNITS/ML SQ PRN (16:21)
[2022-09-24 16:31] LABS: GLUCOMETER DEV NAME(LOC) 3E.C; GLUCOSE,POINT OF CARE 144 MG/DL (70-110)
[2022-09-24 16:33] VITALS: BP 118/72; PULSE 68; RESP 17; TEMP 97.9
[2022-09-24] MEDS: HALOPERIDOL 10 MG TABLET PO SCH (20:47)
[2022-09-24] MEDS: ATORVASTATIN CALCIUM 40 MG TABLET PO SCH (20:47)
[2022-09-24 21:11] VITALS: BP 121/61; PULSE 67; RESP 18; TEMP 98.2
[2022-09-25 01:20] VITALS: RESP 17; TEMP 97.3
[2022-09-25 05:50] VITALS: RESP 19; TEMP 97.9
[2022-09-25] MEDS: INSULIN LISPRO 100 UNITS/ML SQ PRN ×3 (06:41→17:03)
[2022-09-25] MEDS: LEVOTHYROXINE SODIUM 75 MCG TABLET PO SCH (06:51)
[2022-09-25] MEDS: MetFORMIN HCL 500 MG TABLET PO SCH ×2 (06:51→16:18)
[2022-09-25 06:52] LABS: GLUCOMETER DEV NAME(LOC) 3E.C; GLUCOSE,POINT OF CARE 97 MG/DL (70-110)
[2022-09-25] MEDS: LACTULOSE 20 GM/30 ML SOLUTION UDCUP PO SCH (08:17)
[2022-09-25] MEDS: LITHIUM CARBONATE 600 MG CAPSULE PO SCH ×2 (08:18→16:18)
[2022-09-25] MEDS: BENZTROPINE MESYLATE 1 MG TABLET PO SCH ×2 (08:18→16:19)
[2022-09-25 08:55] VITALS: BP 103/74; PULSE 68; RESP 18; TEMP 97.9
[2022-09-25 11:47] LABS: GLUCOMETER DEV NAME(LOC) 3E.C; GLUCOSE,POINT OF CARE 109 MG/DL (70-110)
[2022-09-25] MEDS: MULTIVITAMINS WITH MINERALS, THERAPEUTIC TABLET PO SCH (12:49)
[2022-09-25 13:14] VITALS: TEMP 97.6
[2022-09-25 16:26] LABS: GLUCOMETER DEV NAME(LOC) 3E.C; GLUCOSE,POINT OF CARE 119 MG/DL (70-110)
[2022-09-25 16:37] VITALS: BP 114/65; PULSE 87; RESP 17; TEMP 97.5
[2022-09-25] MEDS: ATORVASTATIN CALCIUM 40 MG TABLET PO SCH (20:33)
[2022-09-25] MEDS: HALOPERIDOL 10 MG TABLET PO SCH (20:33)
[2022-09-25 20:58] VITALS: BP 134/70; PULSE 62; RESP 18; TEMP 97.9
[2022-09-26 00:16] VITALS: RESP 18
[2022-09-26 05:33] VITALS: RESP 18
[2022-09-26] MEDS: INSULIN LISPRO 100 UNITS/ML SQ PRN ×2 (06:40→17:35)
[2022-09-26 06:46] LABS: GLUCOMETER DEV NAME(LOC) 3E.C; GLUCOSE,POINT OF CARE 91 MG/DL (70-110)
[2022-09-26] MEDS: LEVOTHYROXINE SODIUM 75 MCG TABLET PO SCH (06:47)
[2022-09-26] MEDS: MetFORMIN HCL 500 MG TABLET PO SCH ×2 (06:47→16:22)
[2022-09-26 08:33] VITALS: BP 125/60; PULSE 59; RESP 16; TEMP 97.8
[2022-09-26] MEDS: LITHIUM CARBONATE 600 MG CAPSULE PO SCH ×2 (09:13→16:22)
[2022-09-26] MEDS: MULTIVITAMINS WITH MINERALS, THERAPEUTIC TABLET PO SCH (09:13)
[2022-09-26] MEDS: BENZTROPINE MESYLATE 1 MG TABLET PO SCH ×2 (09:13→16:22)
[2022-09-26] MEDS: LACTULOSE 20 GM/30 ML SOLUTION UDCUP PO SCH (09:13)
[2022-09-26 12:00] VITALS: RESP 18; TEMP 98
[2022-09-26 16:26] LABS: GLUCOMETER DEV NAME(LOC) 3E.C; GLUCOSE,POINT OF CARE 145 MG/DL (70-110)
[2022-09-26 16:27] VITALS: BP 123/71; PULSE 63; RESP 17; TEMP 97.8
[2022-09-26 20:57] VITALS: BP 137/78; PULSE 62; RESP 18; TEMP 97.8
[2022-09-26] MEDS: ATORVASTATIN CALCIUM 40 MG TABLET PO SCH (21:27)
[2022-09-26] MEDS: HALOPERIDOL 10 MG TABLET PO SCH (21:27)
[2022-09-27 00:03] VITALS: RESP 18
[2022-09-27 04:10] VITALS: RESP 18
[2022-09-27 05:31] LABS: GLUCOMETER DEV NAME(LOC) 3E.C; GLUCOSE,POINT OF CARE 98 MG/DL (70-110)
[2022-09-27] MEDS: MetFORMIN HCL 500 MG TABLET PO SCH ×2 (06:37→16:33)
[2022-09-27] MEDS: LEVOTHYROXINE SODIUM 75 MCG TABLET PO SCH (06:37)
[2022-09-27 08:22] VITALS: BP 150/88; PULSE 81; RESP 16; TEMP 97.7
[2022-09-27 09:08] LABS: COVID AG,FIA SOURCE NASAL SWAB
[2022-09-27] MEDS: BENZTROPINE MESYLATE 1 MG TABLET PO SCH ×2 (09:23→16:33)
[2022-09-27] MEDS: LACTULOSE 20 GM/30 ML SOLUTION UDCUP PO SCH (09:23)
[2022-09-27] MEDS: MULTIVITAMINS WITH MINERALS, THERAPEUTIC TABLET PO SCH (09:23)
[2022-09-27] MEDS: LITHIUM CARBONATE 600 MG CAPSULE PO SCH ×2 (09:23→16:32)
[2022-09-27 12:00] VITALS: RESP 18; TEMP 97.6
[2022-09-27 16:25] LABS: GLUCOMETER DEV NAME(LOC) 3E.C; GLUCOSE,POINT OF CARE 142 MG/DL (70-110)
[2022-09-27 16:30] VITALS: BP 30/80; PULSE 81; RESP 18; TEMP 98.1
[2022-09-27] MEDS: INSULIN LISPRO 100 UNITS/ML SQ PRN (17:29)
[2022-09-27 21:05] VITALS: BP 136/77; PULSE 67; RESP 18; TEMP 98
[2022-09-27] MEDS: ATORVASTATIN CALCIUM 40 MG TABLET PO SCH (21:28)
[2022-09-27] MEDS: HALOPERIDOL 10 MG TABLET PO SCH (21:28)
[2022-09-28 00:12] VITALS: RESP 18
[2022-09-28 04:23] VITALS: RESP 18
[2022-09-28 05:46] LABS: GLUCOMETER DEV NAME(LOC) 3E.C; GLUCOSE,POINT OF CARE 115 MG/DL (70-110)
[2022-09-28] MEDS: LEVOTHYROXINE SODIUM 75 MCG TABLET PO SCH (06:47)
[2022-09-28] MEDS: MetFORMIN HCL 500 MG TABLET PO SCH ×2 (06:47→17:31)
[2022-09-28] MEDS: MULTIVITAMINS WITH MINERALS, THERAPEUTIC TABLET PO SCH (08:33)
[2022-09-28] MEDS: LITHIUM CARBONATE 600 MG CAPSULE PO SCH ×2 (08:34→16:44)
[2022-09-28] MEDS: LACTULOSE 20 GM/30 ML SOLUTION UDCUP PO SCH (08:34)
[2022-09-28] MEDS: BENZTROPINE MESYLATE 1 MG TABLET PO SCH ×2 (08:34→16:44)
[2022-09-28 08:40] VITALS: BP 144/73; PULSE 73; RESP 18; TEMP 97.7
[2022-09-28 12:02] VITALS: TEMP 97.3
[2022-09-28 16:44] VITALS: BP 138/77; PULSE 62; RESP 18; TEMP 97.7
[2022-09-28 16:52] LABS: GLUCOMETER DEV NAME(LOC) 3E.C; GLUCOSE,POINT OF CARE 151 MG/DL (70-110)
[2022-09-28] MEDS: INSULIN LISPRO 100 UNITS/ML SQ PRN (17:15)
[2022-09-28] MEDS: ATORVASTATIN CALCIUM 40 MG TABLET PO SCH (20:12)
[2022-09-28] MEDS: HALOPERIDOL 10 MG TABLET PO SCH (20:12)
[2022-09-28 21:05] VITALS: BP 115/60; PULSE 74; RESP 18; TEMP 98.3
[2022-09-29 00:07] VITALS: RESP 17
[2022-09-29 05:31] VITALS: RESP 18
[2022-09-29 05:36] LABS: GLUCOMETER DEV NAME(LOC) 3E.C; GLUCOSE,POINT OF CARE 96 MG/DL (70-110)
[2022-09-29] MEDS: MetFORMIN HCL 500 MG TABLET PO SCH ×2 (06:38→17:31)
[2022-09-29] MEDS: LEVOTHYROXINE SODIUM 75 MCG TABLET PO SCH (06:38)
[2022-09-29 08:06] VITALS: BP 119/72; PULSE 68; RESP 18; TEMP 97.5
[2022-09-29] MEDS: LITHIUM CARBONATE 600 MG CAPSULE PO SCH ×2 (09:58→16:55)
[2022-09-29] MEDS: LACTULOSE 20 GM/30 ML SOLUTION UDCUP PO SCH (09:58)
[2022-09-29] MEDS: MULTIVITAMINS WITH MINERALS, THERAPEUTIC TABLET PO SCH (09:58)
[2022-09-29] MEDS: BENZTROPINE MESYLATE 1 MG TABLET PO SCH ×2 (09:59→16:55)
[2022-09-29 12:28] VITALS: TEMP 98.3
[2022-09-29 16:04] VITALS: BP 118/69; PULSE 68; RESP 18; TEMP 97.7
[2022-09-29 17:16] LABS: GLUCOMETER DEV NAME(LOC) 3E.C; GLUCOSE,POINT OF CARE 134 MG/DL (70-110)
[2022-09-29] MEDS: ATORVASTATIN CALCIUM 40 MG TABLET PO SCH (20:45)
[2022-09-29] MEDS: HALOPERIDOL 10 MG TABLET PO SCH (20:45)
[2022-09-29 20:54] VITALS: BP 137/77; PULSE 64; RESP 18; TEMP 97.1
[2022-09-30 00:11] VITALS: RESP 17
[2022-09-30 04:19] VITALS: RESP 18
[2022-09-30 05:31] LABS: GLUCOMETER DEV NAME(LOC) 3E.C; GLUCOSE,POINT OF CARE 94 MG/DL (70-110)
[2022-09-30] MEDS: LEVOTHYROXINE SODIUM 75 MCG TABLET PO SCH (06:51)
[2022-09-30] MEDS: MetFORMIN HCL 500 MG TABLET PO SCH ×2 (06:51→17:13)
[2022-09-30 08:48] VITALS: BP 107/56; PULSE 69; RESP 17; TEMP 98.2
[2022-09-30] MEDS: LACTULOSE 20 GM/30 ML SOLUTION UDCUP PO SCH (09:34)
[2022-09-30] MEDS: BENZTROPINE MESYLATE 1 MG TABLET PO SCH ×2 (09:35→17:13)
[2022-09-30] MEDS: MULTIVITAMINS WITH MINERALS, THERAPEUTIC TABLET PO SCH (09:35)
[2022-09-30] MEDS: LITHIUM CARBONATE 600 MG CAPSULE PO SCH ×2 (09:36→17:13)
[2022-09-30 12:11] VITALS: TEMP 97.7
[2022-09-30 16:35] VITALS: BP 134/55; PULSE 68; RESP 18; TEMP 97.7
[2022-09-30 17:01] LABS: GLUCOMETER DEV NAME(LOC) 3E.C; GLUCOSE,POINT OF CARE 106 MG/DL (70-110)
[2022-09-30] MEDS: INSULIN LISPRO 100 UNITS/ML SQ PRN (17:16)
[2022-09-30] MEDS: ATORVASTATIN CALCIUM 40 MG TABLET PO SCH (21:19)
[2022-09-30] MEDS: HALOPERIDOL 10 MG TABLET PO SCH (21:19)
[2022-09-30 22:20] VITALS: BP 132/73; PULSE 68; RESP 17; TEMP 97.8
[2022-10-01 01:46] VITALS: RESP 18
[2022-10-01 05:05] VITALS: RESP 18
[2022-10-01] MEDS: MetFORMIN HCL 500 MG TABLET PO SCH ×2 (06:32→17:13)
[2022-10-01] MEDS: LEVOTHYROXINE SODIUM 75 MCG TABLET PO SCH (06:32)
[2022-10-01] MEDS: INSULIN LISPRO 100 UNITS/ML SQ PRN ×2 (06:33→17:13)
[2022-10-01 07:55] LABS: GLUCOMETER DEV NAME(LOC) 3E.C; GLUCOSE,POINT OF CARE 107 MG/DL (70-110)
[2022-10-01 08:28] VITALS: BP 125/75; PULSE 81; RESP 17; TEMP 98
[2022-10-01] MEDS: LITHIUM CARBONATE 600 MG CAPSULE PO SCH ×2 (08:56→17:13)
[2022-10-01] MEDS: LACTULOSE 20 GM/30 ML SOLUTION UDCUP PO SCH (08:56)
[2022-10-01] MEDS: BENZTROPINE MESYLATE 1 MG TABLET PO SCH ×2 (08:56→17:13)
[2022-10-01] MEDS: MULTIVITAMINS WITH MINERALS, THERAPEUTIC TABLET PO SCH (08:57)
[2022-10-01 12:26] VITALS: TEMP 97.6
[2022-10-01 16:02] VITALS: BP 135/76; PULSE 84; RESP 17; TEMP 97.7
[2022-10-01 16:31] LABS: GLUCOMETER DEV NAME(LOC) 3E.C; GLUCOSE,POINT OF CARE 148 MG/DL (70-110)
[2022-10-01 20:24] VITALS: BP 125/70; PULSE 66; RESP 18; TEMP 98.2
[2022-10-01] MEDS: ATORVASTATIN CALCIUM 40 MG TABLET PO SCH (20:38)
[2022-10-01] MEDS: HALOPERIDOL 10 MG TABLET PO SCH (20:38)
[2022-10-02 00:54] VITALS: RESP 17
[2022-10-02 04:31] VITALS: RESP 18
[2022-10-02 05:27] LABS: GLUCOMETER DEV NAME(LOC) 3E.C; GLUCOSE,POINT OF CARE 102 MG/DL (70-110)
[2022-10-02] MEDS: LEVOTHYROXINE SODIUM 75 MCG TABLET PO SCH (06:16)
[2022-10-02] MEDS: MetFORMIN HCL 500 MG TABLET PO SCH ×2 (06:40→17:20)
[2022-10-02] MEDS: LACTULOSE 20 GM/30 ML SOLUTION UDCUP PO SCH (08:54)
[2022-10-02] MEDS: MULTIVITAMINS WITH MINERALS, THERAPEUTIC TABLET PO SCH (08:54)
[2022-10-02] MEDS: BENZTROPINE MESYLATE 1 MG TABLET PO SCH ×2 (08:54→17:20)
[2022-10-02] MEDS: LITHIUM CARBONATE 600 MG CAPSULE PO SCH ×2 (08:54→17:20)
[2022-10-02 09:22] VITALS: BP 115/68; PULSE 64; RESP 17; TEMP 97.1
[2022-10-02 12:52] VITALS: TEMP 97.8
[2022-10-02 16:53] VITALS: BP 143/82; PULSE 71; RESP 17; TEMP 97.8
[2022-10-02 17:06] LABS: GLUCOMETER DEV NAME(LOC) 3E.C; GLUCOSE,POINT OF CARE 109 MG/DL (70-110)
[2022-10-02] MEDS: INSULIN LISPRO 100 UNITS/ML SQ PRN (17:22)
[2022-10-02] MEDS: ATORVASTATIN CALCIUM 40 MG TABLET PO SCH (20:38)
[2022-10-02] MEDS: HALOPERIDOL 10 MG TABLET PO SCH (20:38)
[2022-10-02 21:01] VITALS: RESP 18
[2022-10-03 04:42] VITALS: RESP 18
[2022-10-03 05:41] LABS: GLUCOMETER DEV NAME(LOC) 3E.C; GLUCOSE,POINT OF CARE 83 MG/DL (70-110)
[2022-10-03] MEDS: LEVOTHYROXINE SODIUM 75 MCG TABLET PO SCH (06:04)
[2022-10-03] MEDS: MetFORMIN HCL 500 MG TABLET PO SCH ×2 (06:49→17:47)
[2022-10-03 08:00] VITALS: BP 124/74; PULSE 71; RESP 18; TEMP 97.5
[2022-10-03] MEDS: LITHIUM CARBONATE 600 MG CAPSULE PO SCH ×2 (09:01→16:09)
[2022-10-03] MEDS: MULTIVITAMINS WITH MINERALS, THERAPEUTIC TABLET PO SCH (09:01)
[2022-10-03] MEDS: LACTULOSE 20 GM/30 ML SOLUTION UDCUP PO SCH (09:01)
[2022-10-03] MEDS: BENZTROPINE MESYLATE 1 MG TABLET PO SCH ×2 (09:01→16:09)
[2022-10-03 12:00] VITALS: RESP 16; TEMP 97.6
[2022-10-03 17:04] VITALS: BP 146/76; PULSE 81; RESP 16; TEMP 98.1
[2022-10-03 18:26] LABS: GLUCOMETER DEV NAME(LOC) 3E.C; GLUCOSE,POINT OF CARE 131 MG/DL (70-110)
[2022-10-03 20:22] VITALS: BP 147/70; PULSE 64; RESP 17; TEMP 97.7
[2022-10-03] MEDS: ATORVASTATIN CALCIUM 40 MG TABLET PO SCH (20:54)
[2022-10-03] MEDS: HALOPERIDOL 10 MG TABLET PO SCH (20:54)
[2022-10-03] MEDS: ZOLPIDEM TARTRATE 10 MG TABLET PO PRN (21:57)
[2022-10-03] MEDS: LORazepam 2 MG TABLET PO PRN (21:57)
[2022-10-04 00:16] VITALS: RESP 18
[2022-10-04 04:15] VITALS: RESP 18
[2022-10-04 05:31] LABS: GLUCOMETER DEV NAME(LOC) 3E.C; GLUCOSE,POINT OF CARE 94 MG/DL (70-110)
[2022-10-04 06:45] LABS: COVID AG,FIA SOURCE NASAL SWAB
[2022-10-04] MEDS: LEVOTHYROXINE SODIUM 75 MCG TABLET PO SCH (07:00)
[2022-10-04] MEDS: MetFORMIN HCL 500 MG TABLET PO SCH ×2 (07:01→17:38)
[2022-10-04] MEDS: INSULIN LISPRO 100 UNITS/ML SQ PRN (07:14)
[2022-10-04] MEDS: BENZTROPINE MESYLATE 1 MG TABLET PO SCH ×2 (08:56→16:35)
[2022-10-04] MEDS: LACTULOSE 20 GM/30 ML SOLUTION UDCUP PO SCH (08:56)
[2022-10-04] MEDS: MULTIVITAMINS WITH MINERALS, THERAPEUTIC TABLET PO SCH (08:57)
[2022-10-04] MEDS: LITHIUM CARBONATE 600 MG CAPSULE PO SCH ×2 (08:57→16:35)
[2022-10-04 09:08] VITALS: BP 126/65; PULSE 84; RESP 18; TEMP 97.5
[2022-10-04 13:11] VITALS: TEMP 98.2
[2022-10-04 16:33] VITALS: BP 126/59; PULSE 73; RESP 18; TEMP 98.1
[2022-10-04 16:36] LABS: GLUCOMETER DEV NAME(LOC) 3E.C; GLUCOSE,POINT OF CARE 102 MG/DL (70-110)
[2022-10-04 20:12] VITALS: BP 116/73; PULSE 74; RESP 18; TEMP 97.1
[2022-10-04] MEDS: HALOPERIDOL 10 MG TABLET PO SCH (21:14)
[2022-10-04] MEDS: ATORVASTATIN CALCIUM 40 MG TABLET PO SCH (21:14)
[2022-10-05 00:18] VITALS: RESP 18
[2022-10-05 04:14] VITALS: RESP 18
[2022-10-05 05:56] LABS: GLUCOMETER DEV NAME(LOC) 3E.C; GLUCOSE,POINT OF CARE 103 MG/DL (70-110)
[2022-10-05] MEDS: LEVOTHYROXINE SODIUM 75 MCG TABLET PO SCH (06:43)
[2022-10-05] MEDS: MetFORMIN HCL 500 MG TABLET PO SCH ×2 (06:43→17:05)
[2022-10-05 08:50] VITALS: BP 112/79; PULSE 85; RESP 17; TEMP 97.4
[2022-10-05] MEDS: LITHIUM CARBONATE 600 MG CAPSULE PO SCH ×2 (09:20→17:04)
[2022-10-05] MEDS: MULTIVITAMINS WITH MINERALS, THERAPEUTIC TABLET PO SCH (09:44)
[2022-10-05] MEDS: BENZTROPINE MESYLATE 1 MG TABLET PO SCH ×2 (09:44→17:04)
[2022-10-05] MEDS: LACTULOSE 20 GM/30 ML SOLUTION UDCUP PO SCH (09:46)
[2022-10-05 12:21] VITALS: TEMP 98
[2022-10-05 16:11] VITALS: BP 113/62; PULSE 66; RESP 18; TEMP 98.1
[2022-10-05 17:25] LABS: GLUCOMETER DEV NAME(LOC) 3E.C; GLUCOSE,POINT OF CARE 125 MG/DL (70-110)
[2022-10-05] MEDS: HALOPERIDOL 10 MG TABLET PO SCH (20:23)
[2022-10-05] MEDS: ATORVASTATIN CALCIUM 40 MG TABLET PO SCH (20:24)
[2022-10-05 20:37] VITALS: BP 134/71; PULSE 65; RESP 17; TEMP 98.7
[2022-10-06 05:36] LABS: GLUCOMETER DEV NAME(LOC) 3E.C; GLUCOSE,POINT OF CARE 92 MG/DL (70-110)
[2022-10-06 05:43] VITALS: RESP 18
[2022-10-06] MEDS: LEVOTHYROXINE SODIUM 75 MCG TABLET PO SCH (06:12)
[2022-10-06] MEDS: MetFORMIN HCL 500 MG TABLET PO SCH ×2 (06:35→16:32)
[2022-10-06 08:00] VITALS: BP 115/72; PULSE 68; RESP 18; TEMP 97.6
[2022-10-06] MEDS: BENZTROPINE MESYLATE 1 MG TABLET PO SCH ×2 (08:24→16:32)
[2022-10-06] MEDS: LITHIUM CARBONATE 600 MG CAPSULE PO SCH ×2 (08:24→16:32)
[2022-10-06] MEDS: LACTULOSE 20 GM/30 ML SOLUTION UDCUP PO SCH (08:24)
[2022-10-06] MEDS: MULTIVITAMINS WITH MINERALS, THERAPEUTIC TABLET PO SCH (08:25)
[2022-10-06 12:00] VITALS: RESP 18; TEMP 97.2
[2022-10-06 16:46] LABS: GLUCOMETER DEV NAME(LOC) 3E.C; GLUCOSE,POINT OF CARE 126 MG/DL (70-110)
[2022-10-06 17:07] VITALS: BP 153/84; PULSE 68; RESP 19; TEMP 97.2
[2022-10-06 20:54] VITALS: BP 141/78; PULSE 70; RESP 18; TEMP 98.1
[2022-10-06] MEDS: LORazepam 2 MG TABLET PO PRN (21:01)
[2022-10-06] MEDS: ATORVASTATIN CALCIUM 40 MG TABLET PO SCH (21:48)
[2022-10-06] MEDS: HALOPERIDOL 10 MG TABLET PO SCH (21:48)
[2022-10-06] MEDS: ZOLPIDEM TARTRATE 10 MG TABLET PO PRN (21:52)
[2022-10-07 01:40] VITALS: RESP 18
[2022-10-07 04:19] VITALS: RESP 18
[2022-10-07 05:26] LABS: GLUCOMETER DEV NAME(LOC) 3E.C; GLUCOSE,POINT OF CARE 114 MG/DL (70-110)
[2022-10-07] MEDS: LEVOTHYROXINE SODIUM 75 MCG TABLET PO SCH (06:41)
[2022-10-07] MEDS: MetFORMIN HCL 500 MG TABLET PO SCH ×2 (06:42→17:20)
[2022-10-07] MEDS: LITHIUM CARBONATE 600 MG CAPSULE PO SCH ×2 (08:28→16:54)
[2022-10-07] MEDS: MULTIVITAMINS WITH MINERALS, THERAPEUTIC TABLET PO SCH (08:28)
[2022-10-07] MEDS: BENZTROPINE MESYLATE 1 MG TABLET PO SCH ×2 (08:28→16:55)
[2022-10-07] MEDS: LACTULOSE 20 GM/30 ML SOLUTION UDCUP PO SCH (08:28)
[2022-10-07 09:04] VITALS: BP 144/89; PULSE 74; RESP 18; TEMP 97.7
[2022-10-07 12:14] VITALS: TEMP 98
[2022-10-07 16:12] VITALS: BP 139/79; PULSE 80; RESP 18; TEMP 98.1
[2022-10-07] MEDS: INSULIN LISPRO 100 UNITS/ML SQ PRN (16:53)
[2022-10-07 17:06] LABS: GLUCOMETER DEV NAME(LOC) 3E.C; GLUCOSE,POINT OF CARE 168 MG/DL (70-110)
[2022-10-07] MEDS: ATORVASTATIN CALCIUM 40 MG TABLET PO SCH (21:11)
[2022-10-07] MEDS: HALOPERIDOL 10 MG TABLET PO SCH (21:11)
[2022-10-07 23:01] VITALS: BP 137/75; PULSE 62; RESP 18; TEMP 97.7
[2022-10-07] MEDS: ZOLPIDEM TARTRATE 10 MG TABLET PO PRN (23:07)
[2022-10-08 00:21] VITALS: RESP 17
[2022-10-08 04:23] VITALS: RESP 18
[2022-10-08] MEDS: LEVOTHYROXINE SODIUM 75 MCG TABLET PO SCH (06:39)
[2022-10-08] MEDS: MetFORMIN HCL 500 MG TABLET PO SCH ×2 (06:39→17:59)
[2022-10-08] MEDS: INSULIN LISPRO 100 UNITS/ML SQ PRN ×2 (06:40→16:41)
[2022-10-08 07:06] LABS: GLUCOMETER DEV NAME(LOC) 3E.C; GLUCOSE,POINT OF CARE 101 MG/DL (70-110)
[2022-10-08] MEDS: BENZTROPINE MESYLATE 1 MG TABLET PO SCH ×2 (08:32→16:39)
[2022-10-08] MEDS: LITHIUM CARBONATE 600 MG CAPSULE PO SCH ×2 (08:32→16:39)
[2022-10-08] MEDS: LACTULOSE 20 GM/30 ML SOLUTION UDCUP PO SCH (08:32)
[2022-10-08] MEDS: MULTIVITAMINS WITH MINERALS, THERAPEUTIC TABLET PO SCH (08:33)
[2022-10-08 09:22] VITALS: BP 110/75; PULSE 75; RESP 16; TEMP 98.1
[2022-10-08 12:07] VITALS: TEMP 97.6
[2022-10-08] MEDS ORDERED: TUBERCULIN, PURIFIED PROTEIN DERIVATIVE 5 TU/0.1 ML SYRINGE ID ONE (13:30)
[2022-10-08 16:12] VITALS: BP 134/65; PULSE 81; RESP 18; TEMP 97.7
[2022-10-08 16:51] LABS: GLUCOMETER DEV NAME(LOC) 3E.C; GLUCOSE,POINT OF CARE 152 MG/DL (70-110)
[2022-10-08 20:28] VITALS: BP 117/61; PULSE 73; RESP 18; TEMP 97.5
[2022-10-08] MEDS: HALOPERIDOL 10 MG TABLET PO SCH (21:09)
[2022-10-08] MEDS: ATORVASTATIN CALCIUM 40 MG TABLET PO SCH (21:09)
[2022-10-09 00:05] VITALS: RESP 17
[2022-10-09 04:13] VITALS: RESP 18
[2022-10-09] MEDS: MetFORMIN HCL 500 MG TABLET PO SCH ×2 (06:48→17:33)
[2022-10-09] MEDS: INSULIN LISPRO 100 UNITS/ML SQ PRN ×2 (06:49→16:46)
[2022-10-09] MEDS: LEVOTHYROXINE SODIUM 75 MCG TABLET PO SCH (06:49)
[2022-10-09 07:21] LABS: GLUCOMETER DEV NAME(LOC) 3E.C; GLUCOSE,POINT OF CARE 100 MG/DL (70-110)
[2022-10-09 08:38] VITALS: BP 107/62; PULSE 76; RESP 17; TEMP 97.8
[2022-10-09] MEDS: MULTIVITAMINS WITH MINERALS, THERAPEUTIC TABLET PO SCH (08:38)
[2022-10-09] MEDS: BENZTROPINE MESYLATE 1 MG TABLET PO SCH ×2 (08:38→17:33)
[2022-10-09] MEDS: LACTULOSE 20 GM/30 ML SOLUTION UDCUP PO SCH (08:38)
[2022-10-09] MEDS: LITHIUM CARBONATE 600 MG CAPSULE PO SCH ×2 (08:39→17:33)
[2022-10-09 12:35] VITALS: TEMP 97.6
[2022-10-09 16:03] VITALS: BP 121/61; PULSE 70; RESP 18; TEMP 97.6
[2022-10-09 16:35] LABS: GLUCOMETER DEV NAME(LOC) 3E.C; GLUCOSE,POINT OF CARE 157 MG/DL (70-110)
[2022-10-09] MEDS: ATORVASTATIN CALCIUM 40 MG TABLET PO SCH (21:01)
[2022-10-09] MEDS: HALOPERIDOL 10 MG TABLET PO SCH (21:01)
[2022-10-09 21:03] VITALS: BP 140/74; PULSE 61; RESP 17; TEMP 97.9
[2022-10-10 01:18] VITALS: RESP 18
[2022-10-10 04:34] VITALS: RESP 17
[2022-10-10 06:26] LABS: GLUCOMETER DEV NAME(LOC) 3E.C; GLUCOSE,POINT OF CARE 130 MG/DL (70-110)
[2022-10-10] MEDS: INSULIN LISPRO 100 UNITS/ML SQ PRN (06:37)
[2022-10-10] MEDS: LEVOTHYROXINE SODIUM 75 MCG TABLET PO SCH (06:38)
[2022-10-10] MEDS: MetFORMIN HCL 500 MG TABLET PO SCH ×2 (06:38→16:15)
[2022-10-10] MEDS: MULTIVITAMINS WITH MINERALS, THERAPEUTIC TABLET PO SCH (08:26)
[2022-10-10] MEDS: LACTULOSE 20 GM/30 ML SOLUTION UDCUP PO SCH (08:26)
[2022-10-10] MEDS: LITHIUM CARBONATE 600 MG CAPSULE PO SCH ×2 (08:26→16:15)
[2022-10-10] MEDS: BENZTROPINE MESYLATE 1 MG TABLET PO SCH ×2 (08:26→16:15)
[2022-10-10 08:43] VITALS: BP 106/56; PULSE 69; RESP 18; TEMP 97.6
[2022-10-10 12:42] VITALS: TEMP 98
[2022-10-10 16:15] VITALS: BP 117/60; PULSE 63; RESP 18; TEMP 97.9
[2022-10-10 17:26] LABS: GLUCOMETER DEV NAME(LOC) 3E.C; GLUCOSE,POINT OF CARE 115 MG/DL (70-110)
[2022-10-10] MEDS: ATORVASTATIN CALCIUM 40 MG TABLET PO SCH (20:56)
[2022-10-10] MEDS: HALOPERIDOL 10 MG TABLET PO SCH (20:56)
[2022-10-10 21:35] VITALS: BP 144/79; PULSE 62; RESP 18; TEMP 98.1
[2022-10-11 00:02] VITALS: RESP 18
[2022-10-11 04:16] VITALS: RESP 17
[2022-10-11 06:27] LABS: GLUCOMETER DEV NAME(LOC) 3E.C; GLUCOSE,POINT OF CARE 92 MG/DL (70-110)
[2022-10-11] MEDS: INSULIN LISPRO 100 UNITS/ML SQ PRN (06:40)
[2022-10-11] MEDS: LEVOTHYROXINE SODIUM 75 MCG TABLET PO SCH (06:40)
[2022-10-11] MEDS: MetFORMIN HCL 500 MG TABLET PO SCH ×2 (06:43→17:54)
[2022-10-11 07:22] LABS: COVID AG,FIA SOURCE NASAL SWAB
[2022-10-11] MEDS: MULTIVITAMINS WITH MINERALS, THERAPEUTIC TABLET PO SCH (08:12)
[2022-10-11] MEDS: BENZTROPINE MESYLATE 1 MG TABLET PO SCH ×2 (08:12→16:21)
[2022-10-11] MEDS: LACTULOSE 20 GM/30 ML SOLUTION UDCUP PO SCH (08:12)
[2022-10-11] MEDS: LITHIUM CARBONATE 600 MG CAPSULE PO SCH ×2 (08:12→16:21)
[2022-10-11 09:41] VITALS: BP 114/75; PULSE 78; RESP 18; TEMP 97.4
[2022-10-11 12:36] VITALS: TEMP 98.2
[2022-10-11 16:21] LABS: GLUCOMETER DEV NAME(LOC) 3E.C; GLUCOSE,POINT OF CARE 125 MG/DL (70-110)
[2022-10-11 16:36] VITALS: BP 143/76; PULSE 68; RESP 18; TEMP 97.8
[2022-10-11] MEDS: ATORVASTATIN CALCIUM 40 MG TABLET PO SCH (21:20)
[2022-10-11] MEDS: HALOPERIDOL 10 MG TABLET PO SCH (21:20)
[2022-10-11 23:17] VITALS: RESP 18
[2022-10-12 00:53] VITALS: RESP 18
[2022-10-12 05:34] VITALS: RESP 17
[2022-10-12 05:56] LABS: GLUCOMETER DEV NAME(LOC) 3E.C; GLUCOSE,POINT OF CARE 109 MG/DL (70-110)
[2022-10-12] MEDS: LEVOTHYROXINE SODIUM 75 MCG TABLET PO SCH (06:44)
[2022-10-12] MEDS: MetFORMIN HCL 500 MG TABLET PO SCH ×2 (06:45→16:58)
[2022-10-12] MEDS: INSULIN LISPRO 100 UNITS/ML SQ PRN (07:03)
[2022-10-12] MEDS: LACTULOSE 20 GM/30 ML SOLUTION UDCUP PO SCH (07:55)
[2022-10-12] MEDS: BENZTROPINE MESYLATE 1 MG TABLET PO SCH ×2 (07:55→16:23)
[2022-10-12] MEDS: MULTIVITAMINS WITH MINERALS, THERAPEUTIC TABLET PO SCH (07:55)
[2022-10-12] MEDS: LITHIUM CARBONATE 600 MG CAPSULE PO SCH ×2 (07:55→16:23)
[2022-10-12 08:57] VITALS: BP 130/74; PULSE 68; RESP 18; TEMP 97.2
[2022-10-12 12:15] VITALS: TEMP 97.2
[2022-10-12 16:11] LABS: GLUCOMETER DEV NAME(LOC) 3E.C; GLUCOSE,POINT OF CARE 127 MG/DL (70-110)
[2022-10-12 16:36] VITALS: BP 134/80; PULSE 65; RESP 18; TEMP 98
[2022-10-12 20:00] VITALS: BP 141/73; PULSE 68; RESP 18; TEMP 98.1
[2022-10-12] MEDS: HALOPERIDOL 10 MG TABLET PO SCH (20:46)
[2022-10-12] MEDS: ATORVASTATIN CALCIUM 40 MG TABLET PO SCH (20:46)
[2022-10-13 00:28] VITALS: RESP 17
[2022-10-13 05:42] VITALS: RESP 17
[2022-10-13 06:26] LABS: GLUCOMETER DEV NAME(LOC) 3E.C; GLUCOSE,POINT OF CARE 93 MG/DL (70-110)
[2022-10-13] MEDS: LEVOTHYROXINE SODIUM 75 MCG TABLET PO SCH (06:39)
[2022-10-13] MEDS: INSULIN LISPRO 100 UNITS/ML SQ PRN ×2 (06:39→16:33)
[2022-10-13] MEDS: MetFORMIN HCL 500 MG TABLET PO SCH ×2 (06:39→17:41)
[2022-10-13] MEDS: MULTIVITAMINS WITH MINERALS, THERAPEUTIC TABLET PO SCH (08:04)
[2022-10-13] MEDS: LACTULOSE 20 GM/30 ML SOLUTION UDCUP PO SCH (08:04)
[2022-10-13] MEDS: LITHIUM CARBONATE 600 MG CAPSULE PO SCH ×2 (08:05→16:31)
[2022-10-13] MEDS: BENZTROPINE MESYLATE 1 MG TABLET PO SCH ×2 (08:05→16:32)
[2022-10-13 09:44] VITALS: BP 112/66; PULSE 81; RESP 17; RESP 18; TEMP 98
[2022-10-13 13:07] VITALS: TEMP 97.5
[2022-10-13 16:00] VITALS: BP 136/71; PULSE 70; RESP 17; TEMP 97.6
[2022-10-13 16:21] LABS: GLUCOMETER DEV NAME(LOC) 3E.C; GLUCOSE,POINT OF CARE 143 MG/DL (70-110)
[2022-10-13] MEDS: HALOPERIDOL 10 MG TABLET PO SCH (21:17)
[2022-10-13] MEDS: ATORVASTATIN CALCIUM 40 MG TABLET PO SCH (21:17)
[2022-10-13 21:53] VITALS: BP 130/68; PULSE 78; RESP 18; TEMP 98.1
[2022-10-14 02:49] VITALS: PULSE 80; RESP 20; TEMP 97.2
[2022-10-14 04:29] VITALS: RESP 19
[2022-10-14 06:31] LABS: GLUCOMETER DEV NAME(LOC) 3E.C; GLUCOSE,POINT OF CARE 94 MG/DL (70-110)
[2022-10-14] MEDS: MetFORMIN HCL 500 MG TABLET PO SCH ×2 (06:41→16:46)
[2022-10-14] MEDS: LEVOTHYROXINE SODIUM 75 MCG TABLET PO SCH (06:41)
[2022-10-14 08:00] VITALS: BP 119/67; PULSE 66; RESP 16; TEMP 97.8
[2022-10-14] MEDS: MULTIVITAMINS WITH MINERALS, THERAPEUTIC TABLET PO SCH (08:52)
[2022-10-14] MEDS: BENZTROPINE MESYLATE 1 MG TABLET PO SCH ×2 (08:52→16:46)
[2022-10-14] MEDS: LITHIUM CARBONATE 600 MG CAPSULE PO SCH ×2 (08:53→16:47)
[2022-10-14] MEDS: LACTULOSE 20 GM/30 ML SOLUTION UDCUP PO SCH (08:53)
[2022-10-14 16:56] LABS: GLUCOMETER DEV NAME(LOC) 3E.C; GLUCOSE,POINT OF CARE 137 MG/DL (70-110)
[2022-10-14 17:10] VITALS: BP 143/80; PULSE 88; RESP 19; TEMP 98
[2022-10-14] MEDS: HALOPERIDOL 10 MG TABLET PO SCH (20:14)
[2022-10-14] MEDS: ATORVASTATIN CALCIUM 40 MG TABLET PO SCH (20:14)
[2022-10-14 21:21] VITALS: BP 135/75; PULSE 66; RESP 19; TEMP 97.6
[2022-10-15 05:26] LABS: GLUCOMETER DEV NAME(LOC) 3E.C; GLUCOSE,POINT OF CARE 99 MG/DL (70-110)
[2022-10-15] MEDS: LEVOTHYROXINE SODIUM 75 MCG TABLET PO SCH (06:11)
[2022-10-15] MEDS: MetFORMIN HCL 500 MG TABLET PO SCH ×2 (06:44→17:39)
[2022-10-15] MEDS: MULTIVITAMINS WITH MINERALS, THERAPEUTIC TABLET PO SCH (08:10)
[2022-10-15] MEDS: LACTULOSE 20 GM/30 ML SOLUTION UDCUP PO SCH (08:10)
[2022-10-15] MEDS: LITHIUM CARBONATE 600 MG CAPSULE PO SCH ×2 (08:10→16:27)
[2022-10-15] MEDS: BENZTROPINE MESYLATE 1 MG TABLET PO SCH ×2 (08:10→16:27)
[2022-10-15 12:03] VITALS: TEMP 97.4
[2022-10-15 16:02] VITALS: BP 134/74; PULSE 82; RESP 18; TEMP 97.6
[2022-10-15 16:31] LABS: GLUCOMETER DEV NAME(LOC) 3E.C; GLUCOSE,POINT OF CARE 117 MG/DL (70-110)
[2022-10-15] MEDS: HALOPERIDOL 10 MG TABLET PO SCH (20:24)
[2022-10-15] MEDS: ATORVASTATIN CALCIUM 40 MG TABLET PO SCH (20:24)
[2022-10-15 20:55] VITALS: BP 142/78; PULSE 62; RESP 18; TEMP 97.6
[2022-10-15] MEDS: ZOLPIDEM TARTRATE 10 MG TABLET PO PRN (23:52)
[2022-10-15] MEDS: LORazepam 2 MG TABLET PO PRN (23:53)
[2022-10-16 05:36] LABS: GLUCOMETER DEV NAME(LOC) 3E.C; GLUCOSE,POINT OF CARE 103 MG/DL (70-110)
[2022-10-16 05:55] VITALS: RESP 18
[2022-10-16] MEDS: LEVOTHYROXINE SODIUM 75 MCG TABLET PO SCH (06:07)
[2022-10-16] MEDS: MetFORMIN HCL 500 MG TABLET PO SCH ×2 (06:38→17:08)
[2022-10-16 09:27] VITALS: BP 114/67; PULSE 72; RESP 17; TEMP 97.1
[2022-10-16] MEDS: BENZTROPINE MESYLATE 1 MG TABLET PO SCH ×2 (10:41→17:00)
[2022-10-16] MEDS: MULTIVITAMINS WITH MINERALS, THERAPEUTIC TABLET PO SCH (10:41)
[2022-10-16] MEDS: LACTULOSE 20 GM/30 ML SOLUTION UDCUP PO SCH (10:41)
[2022-10-16] MEDS: LITHIUM CARBONATE 600 MG CAPSULE PO SCH ×2 (10:41→17:00)
[2022-10-16 12:13] VITALS: TEMP 98
[2022-10-16 16:00] VITALS: BP 138/79; PULSE 70; RESP 18; TEMP 97.6
[2022-10-16 17:21] LABS: GLUCOMETER DEV NAME(LOC) 3E.C; GLUCOSE,POINT OF CARE 104 MG/DL (70-110)
[2022-10-16 20:30] VITALS: BP 129/75; PULSE 65; RESP 18; TEMP 97.8
[2022-10-16] MEDS: LORazepam 2 MG TABLET PO PRN (20:38)
[2022-10-16] MEDS: ATORVASTATIN CALCIUM 40 MG TABLET PO SCH (20:40)
[2022-10-16] MEDS: HALOPERIDOL 10 MG TABLET PO SCH (20:40)
[2022-10-16] MEDS: ZOLPIDEM TARTRATE 10 MG TABLET PO PRN (21:42)
[2022-10-17 00:34] VITALS: RESP 19; TEMP 97.5
[2022-10-17 04:46] VITALS: RESP 17; TEMP 97.9
[2022-10-17 06:11] LABS: GLUCOMETER DEV NAME(LOC) 3E.C; GLUCOSE,POINT OF CARE 103 MG/DL (70-110)
[2022-10-17] MEDS: INSULIN LISPRO 100 UNITS/ML SQ PRN ×2 (06:32→17:19)
[2022-10-17] MEDS: LEVOTHYROXINE SODIUM 75 MCG TABLET PO SCH (06:34)
[2022-10-17] MEDS: MetFORMIN HCL 500 MG TABLET PO SCH ×2 (06:53→16:06)
[2022-10-17] MEDS: LITHIUM CARBONATE 600 MG CAPSULE PO SCH ×2 (09:00→16:05)
[2022-10-17] MEDS: LACTULOSE 20 GM/30 ML SOLUTION UDCUP PO SCH (09:00)
[2022-10-17] MEDS: MULTIVITAMINS WITH MINERALS, THERAPEUTIC TABLET PO SCH (09:00)
[2022-10-17] MEDS: BENZTROPINE MESYLATE 1 MG TABLET PO SCH ×2 (09:00→16:05)
[2022-10-17 09:21] VITALS: BP 127/66; PULSE 59; RESP 18; TEMP 97.7
[2022-10-17 13:47] VITALS: TEMP 97.1
[2022-10-17 16:16] LABS: GLUCOMETER DEV NAME(LOC) 3E.C; GLUCOSE,POINT OF CARE 171 MG/DL (70-110)
[2022-10-17 16:32] VITALS: BP 134/67; PULSE 71; RESP 18; TEMP 97.7
[2022-10-17] MEDS: ATORVASTATIN CALCIUM 40 MG TABLET PO SCH (21:44)
[2022-10-17] MEDS: HALOPERIDOL 10 MG TABLET PO SCH (21:44)
[2022-10-17 22:02] VITALS: BP 131/66; PULSE 82; RESP 18; TEMP 98
[2022-10-18 00:06] VITALS: RESP 19
[2022-10-18 04:29] VITALS: RESP 18
[2022-10-18 06:02] LABS: GLUCOMETER DEV NAME(LOC) 3E.C; GLUCOSE,POINT OF CARE 133 MG/DL (70-110)
[2022-10-18] MEDS: MetFORMIN HCL 500 MG TABLET PO SCH ×2 (06:42→17:35)
[2022-10-18] MEDS: LEVOTHYROXINE SODIUM 75 MCG TABLET PO SCH (06:42)
[2022-10-18 08:24] LABS: COVID AG,FIA SOURCE NASAL SWAB
[2022-10-18] MEDS: BENZTROPINE MESYLATE 1 MG TABLET PO SCH ×2 (08:40→17:35)
[2022-10-18] MEDS: LITHIUM CARBONATE 600 MG CAPSULE PO SCH ×2 (08:40→17:35)
[2022-10-18] MEDS: LACTULOSE 20 GM/30 ML SOLUTION UDCUP PO SCH (08:41)
[2022-10-18] MEDS: MULTIVITAMINS WITH MINERALS, THERAPEUTIC TABLET PO SCH (08:42)
[2022-10-18 09:34] VITALS: BP 112/69; PULSE 70; RESP 18; TEMP 97
[2022-10-18 12:07] VITALS: TEMP 97.6
[2022-10-18 16:26] LABS: GLUCOMETER DEV NAME(LOC) 3E.C; GLUCOSE,POINT OF CARE 132 MG/DL (70-110)
[2022-10-18 17:02] VITALS: BP 120/63; PULSE 60; RESP 17; TEMP 98.1
[2022-10-18 20:10] VITALS: BP 133/66; PULSE 68; RESP 17; TEMP 98
[2022-10-18] MEDS: ATORVASTATIN CALCIUM 40 MG TABLET PO SCH (21:41)
[2022-10-18] MEDS: HALOPERIDOL 10 MG TABLET PO SCH (21:41)
[2022-10-19 00:11] VITALS: RESP 18
[2022-10-19 04:23] VITALS: RESP 18
[2022-10-19 06:01] LABS: GLUCOMETER DEV NAME(LOC) 3E.C; GLUCOSE,POINT OF CARE 102 MG/DL (70-110)
[2022-10-19] MEDS: MetFORMIN HCL 500 MG TABLET PO SCH ×2 (06:43→16:50)
[2022-10-19] MEDS: LEVOTHYROXINE SODIUM 75 MCG TABLET PO SCH (06:43)
[2022-10-19 08:07] VITALS: BP 112/66; PULSE 68; RESP 18; TEMP 98.1
[2022-10-19] MEDS: MULTIVITAMINS WITH MINERALS, THERAPEUTIC TABLET PO SCH (08:19)
[2022-10-19] MEDS: LITHIUM CARBONATE 600 MG CAPSULE PO SCH ×2 (08:19→16:49)
[2022-10-19] MEDS: LACTULOSE 20 GM/30 ML SOLUTION UDCUP PO SCH (08:19)
[2022-10-19] MEDS: BENZTROPINE MESYLATE 1 MG TABLET PO SCH ×2 (08:20→16:49)
[2022-10-19 12:08] VITALS: TEMP 97.6
[2022-10-19 16:01] VITALS: BP 148/87; PULSE 60; RESP 19; TEMP 97.8
[2022-10-19 16:41] LABS: GLUCOMETER DEV NAME(LOC) 3E.C; GLUCOSE,POINT OF CARE 123 MG/DL (70-110)
[2022-10-19] MEDS: HALOPERIDOL 10 MG TABLET PO SCH (20:21)
[2022-10-19] MEDS: ATORVASTATIN CALCIUM 40 MG TABLET PO SCH (20:21)
[2022-10-19 21:09] VITALS: BP 128/72; PULSE 69; RESP 18; TEMP 98.1
[2022-10-20 05:16] LABS: GLUCOMETER DEV NAME(LOC) 3E.C; GLUCOSE,POINT OF CARE 101 MG/DL (70-110)
[2022-10-20 05:48] VITALS: RESP 18
[2022-10-20] MEDS: LEVOTHYROXINE SODIUM 75 MCG TABLET PO SCH (06:23)
[2022-10-20] MEDS: MetFORMIN HCL 500 MG TABLET PO SCH ×2 (06:41→17:20)
[2022-10-20 08:06] VITALS: BP 107/68; PULSE 64; RESP 18; TEMP 97.2
[2022-10-20] MEDS: BENZTROPINE MESYLATE 1 MG TABLET PO SCH ×2 (08:14→16:05)
[2022-10-20] MEDS: MULTIVITAMINS WITH MINERALS, THERAPEUTIC TABLET PO SCH (08:14)
[2022-10-20] MEDS: LACTULOSE 20 GM/30 ML SOLUTION UDCUP PO SCH (08:14)
[2022-10-20] MEDS: LITHIUM CARBONATE 600 MG CAPSULE PO SCH ×2 (08:14→16:04)
[2022-10-20 12:08] VITALS: TEMP 97.4
[2022-10-20 16:00] VITALS: BP 128/78; PULSE 65; RESP 18; TEMP 97.8
[2022-10-20 16:06] LABS: GLUCOMETER DEV NAME(LOC) 3E.C; GLUCOSE,POINT OF CARE 126 MG/DL (70-110)
[2022-10-20 20:30] VITALS: BP 122/72; PULSE 61; RESP 18; TEMP 97.8
[2022-10-20 21:01] VITALS: BP 121/81; PULSE 63; RESP 18; TEMP 97.7
[2022-10-20] MEDS: ATORVASTATIN CALCIUM 40 MG TABLET PO SCH (21:03)
[2022-10-20] MEDS: HALOPERIDOL 10 MG TABLET PO SCH (21:03)
[2022-10-21] VITALS (7 sets, daily range): BP systolic 110–131; BP diastolic 63–78; PULSE 63–70; RESP 17–18; TEMP 97.8–98.2
[2022-10-21 05:46] LABS: GLUCOMETER DEV NAME(LOC) 3E.C; GLUCOSE,POINT OF CARE 90 MG/DL (70-110)
[2022-10-21] MEDS: LEVOTHYROXINE SODIUM 75 MCG TABLET PO SCH (06:35)
[2022-10-21] MEDS: MetFORMIN HCL 500 MG TABLET PO SCH ×2 (06:36→18:13)
[2022-10-21] MEDS: BENZTROPINE MESYLATE 1 MG TABLET PO SCH ×2 (10:24→18:12)
[2022-10-21] MEDS: LITHIUM CARBONATE 600 MG CAPSULE PO SCH ×2 (10:24→18:13)
[2022-10-21] MEDS: LACTULOSE 20 GM/30 ML SOLUTION UDCUP PO SCH (10:24)
[2022-10-21] MEDS: MULTIVITAMINS WITH MINERALS, THERAPEUTIC TABLET PO SCH (10:25)
[2022-10-21 16:36] LABS: GLUCOMETER DEV NAME(LOC) 3E.C; GLUCOSE,POINT OF CARE 103 MG/DL (70-110)
[2022-10-21] MEDS: ATORVASTATIN CALCIUM 40 MG TABLET PO SCH (21:01)
[2022-10-21] MEDS: HALOPERIDOL 10 MG TABLET PO SCH (21:01)
[2022-10-21] MEDS: LORazepam 2 MG TABLET PO PRN (22:27)
[2022-10-21] MEDS: ZOLPIDEM TARTRATE 10 MG TABLET PO PRN (22:27)
[2022-10-22] VITALS (7 sets, daily range): BP systolic 125–136; BP diastolic 53–68; PULSE 70–82; RESP 17–18; TEMP 96.7–97.8
[2022-10-22] MEDS: LEVOTHYROXINE SODIUM 75 MCG TABLET PO SCH (06:40)
[2022-10-22] MEDS: MetFORMIN HCL 500 MG TABLET PO SCH ×2 (06:41→16:54)
[2022-10-22] MEDS: INSULIN LISPRO 100 UNITS/ML SQ PRN (06:41)
[2022-10-22 07:01] LABS: GLUCOMETER DEV NAME(LOC) 3E.C; GLUCOSE,POINT OF CARE 98 MG/DL (70-110)
[2022-10-22] MEDS: LITHIUM CARBONATE 600 MG CAPSULE PO SCH ×2 (07:55→16:54)
[2022-10-22] MEDS: MULTIVITAMINS WITH MINERALS, THERAPEUTIC TABLET PO SCH (08:01)
[2022-10-22] MEDS: LACTULOSE 20 GM/30 ML SOLUTION UDCUP PO SCH (08:01)
[2022-10-22] MEDS: BENZTROPINE MESYLATE 1 MG TABLET PO SCH ×2 (08:02→16:55)
[2022-10-22 17:06] LABS: GLUCOMETER DEV NAME(LOC) 3E.C; GLUCOSE,POINT OF CARE 125 MG/DL (70-110)
[2022-10-22] MEDS: HALOPERIDOL 10 MG TABLET PO SCH (20:39)
[2022-10-22] MEDS: ATORVASTATIN CALCIUM 40 MG TABLET PO SCH (20:39)
[2022-10-23 00:38] VITALS: RESP 18
[2022-10-23 05:44] VITALS: RESP 17
[2022-10-23 06:16] LABS: GLUCOMETER DEV NAME(LOC) 3E.C; GLUCOSE,POINT OF CARE 97 MG/DL (70-110)
[2022-10-23] MEDS: MetFORMIN HCL 500 MG TABLET PO SCH ×2 (06:46→17:21)
[2022-10-23] MEDS: LEVOTHYROXINE SODIUM 75 MCG TABLET PO SCH (06:47)
[2022-10-23] MEDS: LACTULOSE 20 GM/30 ML SOLUTION UDCUP PO SCH (08:18)
[2022-10-23] MEDS: MULTIVITAMINS WITH MINERALS, THERAPEUTIC TABLET PO SCH (08:19)
[2022-10-23] MEDS: BENZTROPINE MESYLATE 1 MG TABLET PO SCH ×2 (08:19→17:21)
[2022-10-23] MEDS: LITHIUM CARBONATE 600 MG CAPSULE PO SCH ×2 (08:19→17:21)
[2022-10-23 09:00] VITALS: BP 120/68; PULSE 80; RESP 19; TEMP 97.5
[2022-10-23 12:00] VITALS: RESP 18
[2022-10-23 16:34] VITALS: BP 129/73; PULSE 65; RESP 17; TEMP 97.8
[2022-10-23 17:21] LABS: GLUCOMETER DEV NAME(LOC) 3E.C; GLUCOSE,POINT OF CARE 120 MG/DL (70-110)
[2022-10-23] MEDS: INSULIN LISPRO 100 UNITS/ML SQ PRN (17:22)
[2022-10-23] MEDS: HALOPERIDOL 10 MG TABLET PO SCH (20:35)
[2022-10-23] MEDS: ATORVASTATIN CALCIUM 40 MG TABLET PO SCH (20:35)
[2022-10-23 20:57] VITALS: BP 137/75; PULSE 62; RESP 18; TEMP 97.3
[2022-10-23] MEDS: LORazepam 2 MG TABLET PO PRN (21:24)
[2022-10-23] MEDS: ZOLPIDEM TARTRATE 10 MG TABLET PO PRN (21:24)
[2022-10-24 00:38] VITALS: RESP 18
[2022-10-24 04:31] VITALS: RESP 18
[2022-10-24] MEDS: MetFORMIN HCL 500 MG TABLET PO SCH ×2 (06:32→16:33)
[2022-10-24] MEDS: LEVOTHYROXINE SODIUM 75 MCG TABLET PO SCH (06:32)
[2022-10-24] MEDS: INSULIN LISPRO 100 UNITS/ML SQ PRN (06:33)
[2022-10-24 07:26] LABS: GLUCOMETER DEV NAME(LOC) 3E.C; GLUCOSE,POINT OF CARE 90 MG/DL (70-110)
[2022-10-24] MEDS: BENZTROPINE MESYLATE 1 MG TABLET PO SCH ×2 (08:17→16:33)
[2022-10-24] MEDS: MULTIVITAMINS WITH MINERALS, THERAPEUTIC TABLET PO SCH (08:17)
[2022-10-24] MEDS: LITHIUM CARBONATE 600 MG CAPSULE PO SCH ×2 (08:17→16:33)
[2022-10-24] MEDS: LACTULOSE 20 GM/30 ML SOLUTION UDCUP PO SCH (08:17)
[2022-10-24 09:00] VITALS: BP 130/75; PULSE 74; RESP 21; TEMP 96.3
[2022-10-24 12:42] VITALS: TEMP 97.6
[2022-10-24 16:22] VITALS: BP 119/64; PULSE 62; RESP 17; TEMP 98
[2022-10-24 16:46] LABS: GLUCOMETER DEV NAME(LOC) 3E.C; GLUCOSE,POINT OF CARE 123 MG/DL (70-110)
[2022-10-24] MEDS: ATORVASTATIN CALCIUM 40 MG TABLET PO SCH (21:14)
[2022-10-24] MEDS: HALOPERIDOL 10 MG TABLET PO SCH (21:14)
[2022-10-24 21:17] VITALS: BP 128/63; PULSE 67; RESP 18; TEMP 97.7
[2022-10-25 00:49] VITALS: RESP 18
[2022-10-25 05:51] VITALS: RESP 18
[2022-10-25 06:11] LABS: GLUCOMETER DEV NAME(LOC) 3E.C; GLUCOSE,POINT OF CARE 87 MG/DL (70-110)
[2022-10-25] MEDS: LEVOTHYROXINE SODIUM 75 MCG TABLET PO SCH (06:58)
[2022-10-25] MEDS: MetFORMIN HCL 500 MG TABLET PO SCH ×2 (06:58→16:29)
[2022-10-25 07:59] LABS: COVID AG,FIA SOURCE NASAL SWAB
[2022-10-25] MEDS: BENZTROPINE MESYLATE 1 MG TABLET PO SCH ×2 (08:59→16:29)
[2022-10-25] MEDS: LITHIUM CARBONATE 600 MG CAPSULE PO SCH ×2 (08:59→16:29)
[2022-10-25] MEDS: MULTIVITAMINS WITH MINERALS, THERAPEUTIC TABLET PO SCH (09:00)
[2022-10-25] MEDS: LACTULOSE 20 GM/30 ML SOLUTION UDCUP PO SCH (09:00)
[2022-10-25 10:00] VITALS: BP 137/80; PULSE 63; RESP 18; TEMP 97.4
[2022-10-25 12:32] VITALS: BP 128/75; PULSE 72; RESP 16; TEMP 97
[2022-10-25 16:26] LABS: GLUCOMETER DEV NAME(LOC) 3E.C; GLUCOSE,POINT OF CARE 136 MG/DL (70-110)
[2022-10-25 16:57] VITALS: BP 134/71; PULSE 70; RESP 18; TEMP 97.5
[2022-10-25] MEDS: HALOPERIDOL 10 MG TABLET PO SCH (20:15)
[2022-10-25] MEDS: ATORVASTATIN CALCIUM 40 MG TABLET PO SCH (20:15)
[2022-10-25 21:59] VITALS: BP 132/79; PULSE 73; RESP 18; TEMP 98
[2022-10-26 00:03] VITALS: RESP 18
[2022-10-26 04:38] VITALS: RESP 18
[2022-10-26 05:56] LABS: GLUCOMETER DEV NAME(LOC) 3E.C; GLUCOSE,POINT OF CARE 105 MG/DL (70-110)
[2022-10-26] MEDS: MetFORMIN HCL 500 MG TABLET PO SCH ×2 (06:38→17:24)
[2022-10-26] MEDS: LEVOTHYROXINE SODIUM 75 MCG TABLET PO SCH (06:38)
[2022-10-26] MEDS: MULTIVITAMINS WITH MINERALS, THERAPEUTIC TABLET PO SCH (08:40)
[2022-10-26] MEDS: BENZTROPINE MESYLATE 1 MG TABLET PO SCH ×2 (08:40→17:24)
[2022-10-26] MEDS: LACTULOSE 20 GM/30 ML SOLUTION UDCUP PO SCH (08:40)
[2022-10-26] MEDS: LITHIUM CARBONATE 600 MG CAPSULE PO SCH ×2 (08:40→16:00)
[2022-10-26 09:36] VITALS: BP 127/79; PULSE 72; RESP 17; TEMP 97.6
[2022-10-26 12:30] VITALS: RESP 18; TEMP 97.8
[2022-10-26 16:16] LABS: GLUCOMETER DEV NAME(LOC) 3E.C; GLUCOSE,POINT OF CARE 116 MG/DL (70-110)
[2022-10-26 16:17] VITALS: BP 126/62; PULSE 62; RESP 18; TEMP 97.6
[2022-10-26 20:00] VITALS: BP 134/74; PULSE 62; RESP 18; TEMP 97.6
[2022-10-26] MEDS: HALOPERIDOL 10 MG TABLET PO SCH (21:01)
[2022-10-26] MEDS: ATORVASTATIN CALCIUM 40 MG TABLET PO SCH (21:01)
[2022-10-27 01:36] VITALS: RESP 18
[2022-10-27 05:36] LABS: GLUCOMETER DEV NAME(LOC) 3E.C; GLUCOSE,POINT OF CARE 111 MG/DL (70-110)
[2022-10-27 05:50] VITALS: RESP 18
[2022-10-27] MEDS: MetFORMIN HCL 500 MG TABLET PO SCH ×2 (06:56→18:26)
[2022-10-27] MEDS: LEVOTHYROXINE SODIUM 75 MCG TABLET PO SCH (06:56)
[2022-10-27] MEDS: INSULIN LISPRO 100 UNITS/ML SQ PRN (06:58)
[2022-10-27 10:45] VITALS: BP 118/66; PULSE 78; RESP 18; TEMP 97.2
[2022-10-27] MEDS: LITHIUM CARBONATE 600 MG CAPSULE PO SCH ×2 (10:55→18:28)
[2022-10-27] MEDS: MULTIVITAMINS WITH MINERALS, THERAPEUTIC TABLET PO SCH (10:56)
[2022-10-27] MEDS: BENZTROPINE MESYLATE 1 MG TABLET PO SCH ×2 (10:56→17:00)
[2022-10-27] MEDS: LACTULOSE 20 GM/30 ML SOLUTION UDCUP PO SCH (10:57)
[2022-10-27 14:15] VITALS: TEMP 97
[2022-10-27 17:04] VITALS: BP 114/65; PULSE 70; RESP 19; TEMP 97.8
[2022-10-27 17:11] LABS: GLUCOMETER DEV NAME(LOC) 3E.C; GLUCOSE,POINT OF CARE 118 MG/DL (70-110)
[2022-10-27 20:39] VITALS: BP 114/60; PULSE 67; RESP 18; TEMP 97.4
[2022-10-27] MEDS: HALOPERIDOL 10 MG TABLET PO SCH (21:04)
[2022-10-27] MEDS: ATORVASTATIN CALCIUM 40 MG TABLET PO SCH (21:04)
[2022-10-28 03:22] VITALS: RESP 17; TEMP 97.2
[2022-10-28 05:36] VITALS: RESP 18; TEMP 97.6
[2022-10-28] MEDS: LEVOTHYROXINE SODIUM 75 MCG TABLET PO SCH (06:21)
[2022-10-28 06:31] LABS: GLUCOMETER DEV NAME(LOC) 3E.C; GLUCOSE,POINT OF CARE 96 MG/DL (70-110)
[2022-10-28] MEDS: INSULIN LISPRO 100 UNITS/ML SQ PRN (06:37)
[2022-10-28] MEDS: MetFORMIN HCL 500 MG TABLET PO SCH ×2 (06:48→17:00)
[2022-10-28] MEDS: MULTIVITAMINS WITH MINERALS, THERAPEUTIC TABLET PO SCH (09:05)
[2022-10-28] MEDS: LACTULOSE 20 GM/30 ML SOLUTION UDCUP PO SCH (09:05)
[2022-10-28] MEDS: LITHIUM CARBONATE 600 MG CAPSULE PO SCH ×2 (09:05→16:59)
[2022-10-28] MEDS: BENZTROPINE MESYLATE 1 MG TABLET PO SCH ×2 (09:05→17:00)
[2022-10-28 10:00] VITALS: BP 146/97; PULSE 77; RESP 18; TEMP 97.7
[2022-10-28 12:30] VITALS: TEMP 97.7
[2022-10-28 16:11] VITALS: RESP 17; TEMP 97.8
[2022-10-28 16:31] LABS: GLUCOMETER DEV NAME(LOC) 3E.C; GLUCOSE,POINT OF CARE 115 MG/DL (70-110)
[2022-10-28 20:44] VITALS: BP 133/75; PULSE 65; RESP 18; TEMP 98.1
[2022-10-28] MEDS: ATORVASTATIN CALCIUM 40 MG TABLET PO SCH (21:01)
[2022-10-28] MEDS: HALOPERIDOL 10 MG TABLET PO SCH (21:01)
[2022-10-29 00:06] VITALS: RESP 18
[2022-10-29 04:08] VITALS: RESP 18
[2022-10-29] MEDS: LEVOTHYROXINE SODIUM 75 MCG TABLET PO SCH (06:31)
[2022-10-29] MEDS: MetFORMIN HCL 500 MG TABLET PO SCH ×2 (06:31→17:21)
[2022-10-29] MEDS: INSULIN LISPRO 100 UNITS/ML SQ PRN ×2 (06:32→17:22)
[2022-10-29 06:36] LABS: GLUCOMETER DEV NAME(LOC) 3E.C; GLUCOSE,POINT OF CARE 106 MG/DL (70-110)
[2022-10-29 08:00] VITALS: BP 137/85; PULSE 68; RESP 17; TEMP 97.9
[2022-10-29] MEDS: LACTULOSE 20 GM/30 ML SOLUTION UDCUP PO SCH (09:42)
[2022-10-29] MEDS: LITHIUM CARBONATE 600 MG CAPSULE PO SCH ×2 (09:47→17:21)
[2022-10-29] MEDS: MULTIVITAMINS WITH MINERALS, THERAPEUTIC TABLET PO SCH (09:47)
[2022-10-29] MEDS: BENZTROPINE MESYLATE 1 MG TABLET PO SCH ×2 (09:48→17:21)
[2022-10-29 12:00] VITALS: TEMP 97.9
[2022-10-29 16:21] LABS: GLUCOMETER DEV NAME(LOC) 3E.I 2; GLUCOSE,POINT OF CARE 155 MG/DL (70-110)
[2022-10-29 17:11] LABS: GLUCOMETER DEV NAME(LOC) 3E.C; GLUCOSE,POINT OF CARE 137 MG/DL (70-110)
[2022-10-29 18:00] VITALS: BP 148/78; PULSE 66; RESP 19; TEMP 97.3
[2022-10-29 20:00] VITALS: BP 155/76; PULSE 65; RESP 18; TEMP 97.3
[2022-10-29] MEDS: ATORVASTATIN CALCIUM 40 MG TABLET PO SCH (20:53)
[2022-10-29] MEDS: HALOPERIDOL 10 MG TABLET PO SCH (20:53)
[2022-10-30 00:59] VITALS: TEMP 98
[2022-10-30] MEDS: LEVOTHYROXINE SODIUM 75 MCG TABLET PO SCH (06:36)
[2022-10-30] MEDS: INSULIN LISPRO 100 UNITS/ML SQ PRN (06:36)
[2022-10-30 06:37] LABS: GLUCOMETER DEV NAME(LOC) 3E.C; GLUCOSE,POINT OF CARE 129 MG/DL (70-110)
[2022-10-30] MEDS: MetFORMIN HCL 500 MG TABLET PO SCH ×2 (06:43→16:25)
[2022-10-30] MEDS: LITHIUM CARBONATE 600 MG CAPSULE PO SCH ×2 (08:56→16:25)
[2022-10-30] MEDS: MULTIVITAMINS WITH MINERALS, THERAPEUTIC TABLET PO SCH (08:56)
[2022-10-30] MEDS: BENZTROPINE MESYLATE 1 MG TABLET PO SCH ×2 (08:56→16:25)
[2022-10-30] MEDS: LACTULOSE 20 GM/30 ML SOLUTION UDCUP PO SCH (08:56)
[2022-10-30 09:55] VITALS: BP 106/63; PULSE 74; RESP 18; TEMP 97.3
[2022-10-30 12:08] VITALS: TEMP 97.5
[2022-10-30 16:41] LABS: GLUCOMETER DEV NAME(LOC) 3E.C; GLUCOSE,POINT OF CARE 124 MG/DL (70-110)
[2022-10-30 17:06] VITALS: BP 129/66; PULSE 70; RESP 18; TEMP 98.1
[2022-10-30 20:42] VITALS: BP 138/77; PULSE 65; RESP 18; TEMP 98.1
[2022-10-30] MEDS: HALOPERIDOL 10 MG TABLET PO SCH (21:10)
[2022-10-30] MEDS: ATORVASTATIN CALCIUM 40 MG TABLET PO SCH (21:10)
[2022-10-31 02:10] VITALS: RESP 19; TEMP 97.6
[2022-10-31 05:35] VITALS: RESP 17; TEMP 98.1
[2022-10-31 06:21] LABS: GLUCOMETER DEV NAME(LOC) 3E.C; GLUCOSE,POINT OF CARE 103 MG/DL (70-110)
[2022-10-31] MEDS: LEVOTHYROXINE SODIUM 75 MCG TABLET PO SCH (06:27)
[2022-10-31] MEDS: INSULIN LISPRO 100 UNITS/ML SQ PRN (06:34)
[2022-10-31] MEDS: MetFORMIN HCL 500 MG TABLET PO SCH ×2 (06:52→16:36)
[2022-10-31] MEDS: MULTIVITAMINS WITH MINERALS, THERAPEUTIC TABLET PO SCH (08:48)
[2022-10-31] MEDS: LACTULOSE 20 GM/30 ML SOLUTION UDCUP PO SCH (08:48)
[2022-10-31] MEDS: BENZTROPINE MESYLATE 1 MG TABLET PO SCH ×2 (08:49→16:36)
[2022-10-31] MEDS: LITHIUM CARBONATE 600 MG CAPSULE PO SCH ×2 (08:49→16:36)
[2022-10-31] MEDS: ACETAMINOPHEN 325 MG TABLET PO PRN (08:49)
[2022-10-31 09:19] VITALS: BP 99/61; PULSE 67; RESP 19; TEMP 97.4
[2022-10-31 16:47] LABS: GLUCOMETER DEV NAME(LOC) 3E.C; GLUCOSE,POINT OF CARE 119 MG/DL (70-110)
[2022-10-31] MEDS: HALOPERIDOL 10 MG TABLET PO SCH (20:47)
[2022-10-31] MEDS: ATORVASTATIN CALCIUM 40 MG TABLET PO SCH (20:47)
[2022-10-31 21:24] VITALS: BP 141/73; PULSE 63; RESP 18; TEMP 98
[2022-11-01 05:41] LABS: GLUCOMETER DEV NAME(LOC) 3E.C; GLUCOSE,POINT OF CARE 108 MG/DL (70-110)
[2022-11-01] MEDS: MetFORMIN HCL 500 MG TABLET PO SCH ×2 (06:57→16:48)
[2022-11-01] MEDS: LEVOTHYROXINE SODIUM 75 MCG TABLET PO SCH (06:57)
[2022-11-01] MEDS: INSULIN LISPRO 100 UNITS/ML SQ PRN (07:02)
[2022-11-01] MEDS: LITHIUM CARBONATE 600 MG CAPSULE PO SCH ×2 (09:18→16:48)
[2022-11-01] MEDS: LACTULOSE 20 GM/30 ML SOLUTION UDCUP PO SCH (09:18)
[2022-11-01] MEDS: BENZTROPINE MESYLATE 1 MG TABLET PO SCH ×2 (09:19→16:48)
[2022-11-01] MEDS: MULTIVITAMINS WITH MINERALS, THERAPEUTIC TABLET PO SCH (09:19)
[2022-11-01 09:31] VITALS: BP 122/66; PULSE 69; RESP 18; TEMP 98
[2022-11-01 16:51] LABS: GLUCOMETER DEV NAME(LOC) 3E.C; GLUCOSE,POINT OF CARE 97 MG/DL (70-110)
[2022-11-01] MEDS: ATORVASTATIN CALCIUM 40 MG TABLET PO SCH (20:44)
[2022-11-01] MEDS: HALOPERIDOL 10 MG TABLET PO SCH (20:44)
[2022-11-01 21:30] VITALS: BP 118/62; PULSE 65; RESP 17; TEMP 97.6
[2022-11-02 06:31] LABS: GLUCOMETER DEV NAME(LOC) 3E.C; GLUCOSE,POINT OF CARE 99 MG/DL (70-110)
[2022-11-02] MEDS: LEVOTHYROXINE SODIUM 75 MCG TABLET PO SCH (06:39)
[2022-11-02] MEDS: MetFORMIN HCL 500 MG TABLET PO SCH ×2 (06:47→17:24)
[2022-11-02] MEDS: LITHIUM CARBONATE 600 MG CAPSULE PO SCH ×2 (08:34→16:23)
[2022-11-02] MEDS: BENZTROPINE MESYLATE 1 MG TABLET PO SCH ×2 (08:36→16:23)
[2022-11-02] MEDS: MULTIVITAMINS WITH MINERALS, THERAPEUTIC TABLET PO SCH (08:36)
[2022-11-02] MEDS: LACTULOSE 20 GM/30 ML SOLUTION UDCUP PO SCH (08:36)
[2022-11-02 10:11] VITALS: BP 120/70; PULSE 64; RESP 18; TEMP 97.5
[2022-11-02 16:37] LABS: GLUCOMETER DEV NAME(LOC) 3E.C; GLUCOSE,POINT OF CARE 142 MG/DL (70-110)
[2022-11-02] MEDS: INSULIN LISPRO 100 UNITS/ML SQ PRN (17:12)
[2022-11-02] MEDS: ATORVASTATIN CALCIUM 40 MG TABLET PO SCH (20:50)
[2022-11-02] MEDS: HALOPERIDOL 10 MG TABLET PO SCH (20:50)
[2022-11-02 21:17] VITALS: BP 133/74; PULSE 68; RESP 19; TEMP 97.8
[2022-11-03 05:42] LABS: GLUCOMETER DEV NAME(LOC) 3E.C; GLUCOSE,POINT OF CARE 111 MG/DL (70-110)
[2022-11-03] MEDS: LEVOTHYROXINE SODIUM 75 MCG TABLET PO SCH (07:01)
[2022-11-03] MEDS: MetFORMIN HCL 500 MG TABLET PO SCH ×2 (07:02→16:41)
[2022-11-03] MEDS: INSULIN LISPRO 100 UNITS/ML SQ PRN ×2 (07:16→17:34)
[2022-11-03] MEDS: MULTIVITAMINS WITH MINERALS, THERAPEUTIC TABLET PO SCH (08:24)
[2022-11-03] MEDS: LACTULOSE 20 GM/30 ML SOLUTION UDCUP PO SCH (08:24)
[2022-11-03] MEDS: LITHIUM CARBONATE 600 MG CAPSULE PO SCH ×2 (08:24→16:41)
[2022-11-03] MEDS: BENZTROPINE MESYLATE 1 MG TABLET PO SCH ×2 (08:24→16:41)
[2022-11-03 09:00] VITALS: BP 114/66; PULSE 65; TEMP 97.8
[2022-11-03 17:02] LABS: GLUCOMETER DEV NAME(LOC) 3E.C; GLUCOSE,POINT OF CARE 160 MG/DL (70-110)
[2022-11-03] MEDS: HALOPERIDOL 10 MG TABLET PO SCH (20:38)
[2022-11-03] MEDS: ATORVASTATIN CALCIUM 40 MG TABLET PO SCH (20:38)
[2022-11-03 22:46] VITALS: BP 132/73; PULSE 69; RESP 17; TEMP 97.8
[2022-11-04 06:26] LABS: GLUCOMETER DEV NAME(LOC) 3E.C; GLUCOSE,POINT OF CARE 103 MG/DL (70-110)
[2022-11-04] MEDS: LEVOTHYROXINE SODIUM 75 MCG TABLET PO SCH (07:02)
[2022-11-04] MEDS: MetFORMIN HCL 500 MG TABLET PO SCH ×2 (07:31→16:49)
[2022-11-04 08:11] VITALS: BP 107/64; PULSE 68; RESP 18; TEMP 97.7
[2022-11-04] MEDS: MULTIVITAMINS WITH MINERALS, THERAPEUTIC TABLET PO SCH (09:19)
[2022-11-04] MEDS: LITHIUM CARBONATE 600 MG CAPSULE PO SCH ×2 (09:19→16:49)
[2022-11-04] MEDS: LACTULOSE 20 GM/30 ML SOLUTION UDCUP PO SCH (09:19)
[2022-11-04] MEDS: BENZTROPINE MESYLATE 1 MG TABLET PO SCH ×2 (09:19→16:49)
[2022-11-04 17:31] LABS: GLUCOMETER DEV NAME(LOC) 3E.C; GLUCOSE,POINT OF CARE 85 MG/DL (70-110)
[2022-11-04] MEDS: ATORVASTATIN CALCIUM 40 MG TABLET PO SCH (20:23)
[2022-11-04] MEDS: HALOPERIDOL 10 MG TABLET PO SCH (20:23)
[2022-11-04 20:46] VITALS: BP 141/75; PULSE 68; RESP 18; TEMP 98
[2022-11-05 05:31] LABS: GLUCOMETER DEV NAME(LOC) 3E.C; GLUCOSE,POINT OF CARE 109 MG/DL (70-110)
[2022-11-05] MEDS: LEVOTHYROXINE SODIUM 75 MCG TABLET PO SCH (06:08)
[2022-11-05] MEDS: MetFORMIN HCL 500 MG TABLET PO SCH ×2 (06:54→17:17)
[2022-11-05 08:02] VITALS: BP 105/64; PULSE 64; RESP 18; TEMP 97.7
[2022-11-05] MEDS: BENZTROPINE MESYLATE 1 MG TABLET PO SCH ×2 (08:02→16:16)
[2022-11-05] MEDS: LACTULOSE 20 GM/30 ML SOLUTION UDCUP PO SCH (08:02)
[2022-11-05] MEDS: LITHIUM CARBONATE 600 MG CAPSULE PO SCH ×2 (08:02→16:17)
[2022-11-05] MEDS: MULTIVITAMINS WITH MINERALS, THERAPEUTIC TABLET PO SCH (08:03)
[2022-11-05 16:36] LABS: GLUCOMETER DEV NAME(LOC) 3E.C; GLUCOSE,POINT OF CARE 149 MG/DL (70-110)
[2022-11-05] MEDS: INSULIN LISPRO 100 UNITS/ML SQ PRN (17:15)
[2022-11-05] MEDS: HALOPERIDOL 10 MG TABLET PO SCH (20:12)
[2022-11-05] MEDS: ATORVASTATIN CALCIUM 40 MG TABLET PO SCH (20:12)
[2022-11-05 20:53] VITALS: BP 127/76; PULSE 71; RESP 19; TEMP 97.3
[2022-11-06 01:20] VITALS: BP 102/65; PULSE 79; RESP 18; TEMP 97.9
[2022-11-06] MEDS: ZOLPIDEM TARTRATE 10 MG TABLET PO PRN (01:24)
[2022-11-06] MEDS: ACETAMINOPHEN 325 MG TABLET PO PRN (01:24)
[2022-11-06 02:20] VITALS: RESP 18
[2022-11-06 05:31] LABS: GLUCOMETER DEV NAME(LOC) 3E.C; GLUCOSE,POINT OF CARE 96 MG/DL (70-110)
[2022-11-06] MEDS: MetFORMIN HCL 500 MG TABLET PO SCH ×2 (06:39→17:47)
[2022-11-06] MEDS: LEVOTHYROXINE SODIUM 75 MCG TABLET PO SCH (06:39)
[2022-11-06 07:01] LABS: BASOPHILS % (AUTO) 0.8 % (0.0-2.0); EOSINOPHILS % (AUTO) 5.1 % (1.0-6.0); HEMATOCRIT 34.4 % (41-53); HEMOGLOBIN 11.6 g/dL (13.5-17.5); LYMPHOCYTES # (AUTO) 0.9 K/uL (1.0-4.8); LYMPHOCYTES % (AUTO) 16.2 % (22.0-44.0); MEAN CORPUSCULAR HEMOGLOBIN 31.6 pg (26.0-34.0); MEAN CORPUSCULAR HGB CONC 33.8 G/dL (31.0-37.0); MEAN CORPUSCULAR VOLUME 93 fL (80-100); MONOCYTES # (AUTO) 0.8 K/uL (0.1-1.0); MONOCYTES % (AUTO) 13.5 % (2.0-9.0); NEUTROPHILS # (AUTO) 3.7 K/uL (1.8-7.7); NEUTROPHILS % (AUTO) 64.4 % (40.0-70.0); PLATELET COUNT (AUTO) 94 K/uL (150-450); RED BLOOD CELL COUNT(AUTO) 3.68 MIL/uL (4.50-5.90); RED CELL DISTRIBUTION WIDTH 13.2 % (11.5-14.5)
[2022-11-06 07:16] LABS: ALANINE AMINOTRANSFERASE 38 U/L (12-78); ALBUMIN 3.4 g/dL (3.4-5.0); ALKALINE PHOSPHATASE 86 U/L (46-116); ANION GAP 8 mmol/L (8-16); ASPARTATE AMINOTRANSFERASE 22 U/L (15-37); BILIRUBIN,TOTAL 0.4 mg/dL (0.1-1.0); CARBON DIOXIDE 26 mmol/L (22-29); CHLORIDE 104 mmol/L (98-107); CREATININE 0.65 mg/dL (0.60-1.30); GLOMERULAR FILTR. RATE CALC > 60 mL/min (>60); GLUCOSE,RANDOM 108 mg/dL (70-110); PHOSPHORUS 4.4 mg/dL (2.5-4.9); POTASSIUM 3.7 mmol/L (3.5-5.1); SODIUM SERUM 138 mmol/L (136-145); TOTAL PROTEIN, SERUM 7.3 g/dL (6.4-8.2)
[2022-11-06 08:07] VITALS: BP 112/60; PULSE 73; RESP 18; TEMP 97.1
[2022-11-06] MEDS: BENZTROPINE MESYLATE 1 MG TABLET PO SCH ×2 (09:32→17:47)
[2022-11-06] MEDS: LACTULOSE 20 GM/30 ML SOLUTION UDCUP PO SCH (09:32)
[2022-11-06] MEDS: MULTIVITAMINS WITH MINERALS, THERAPEUTIC TABLET PO SCH (09:32)
[2022-11-06] MEDS: LITHIUM CARBONATE 600 MG CAPSULE PO SCH ×2 (09:32→17:46)
[2022-11-06] MEDS: INSULIN LISPRO 100 UNITS/ML SQ PRN (16:59)
[2022-11-06 17:00] LABS: GLUCOMETER DEV NAME(LOC) 3E.C; GLUCOSE,POINT OF CARE 146 MG/DL (70-110)
[2022-11-06 20:47] VITALS: BP 121/68; PULSE 66; RESP 18; TEMP 97.8
[2022-11-06] MEDS: ATORVASTATIN CALCIUM 40 MG TABLET PO SCH (20:51)
[2022-11-06] MEDS: HALOPERIDOL 10 MG TABLET PO SCH (20:51)
[2022-11-07 06:21] LABS: GLUCOMETER DEV NAME(LOC) 3E.C; GLUCOSE,POINT OF CARE 105 MG/DL (70-110)
[2022-11-07] MEDS: INSULIN LISPRO 100 UNITS/ML SQ PRN ×2 (06:40→17:14)
[2022-11-07] MEDS: LEVOTHYROXINE SODIUM 75 MCG TABLET PO SCH (06:41)
[2022-11-07] MEDS: MetFORMIN HCL 500 MG TABLET PO SCH ×2 (06:41→16:39)
[2022-11-07] MEDS: LACTULOSE 20 GM/30 ML SOLUTION UDCUP PO SCH (08:38)
[2022-11-07] MEDS: BENZTROPINE MESYLATE 1 MG TABLET PO SCH ×2 (08:38→16:39)
[2022-11-07] MEDS: LITHIUM CARBONATE 600 MG CAPSULE PO SCH ×2 (08:38→16:39)
[2022-11-07] MEDS: MULTIVITAMINS WITH MINERALS, THERAPEUTIC TABLET PO SCH (08:38)
[2022-11-07 09:34] VITALS: BP 116/68; PULSE 59; RESP 19; TEMP 97.6
[2022-11-07 16:55] LABS: GLUCOMETER DEV NAME(LOC) 3E.C; GLUCOSE,POINT OF CARE 162 MG/DL (70-110)
[2022-11-07] MEDS: ATORVASTATIN CALCIUM 40 MG TABLET PO SCH (20:36)
[2022-11-07] MEDS: HALOPERIDOL 10 MG TABLET PO SCH (20:37)
[2022-11-07 22:40] VITALS: BP 120/67; PULSE 60; RESP 18; TEMP 97.5
[2022-11-08] MEDS: LEVOTHYROXINE SODIUM 75 MCG TABLET PO SCH (06:34)
[2022-11-08] MEDS: INSULIN LISPRO 100 UNITS/ML SQ PRN (06:34)
[2022-11-08 06:41] LABS: GLUCOMETER DEV NAME(LOC) 3E.C; GLUCOSE,POINT OF CARE 99 MG/DL (70-110)
[2022-11-08] MEDS: MetFORMIN HCL 500 MG TABLET PO SCH ×2 (06:47→16:40)
[2022-11-08] MEDS: LACTULOSE 20 GM/30 ML SOLUTION UDCUP PO SCH (08:45)
[2022-11-08] MEDS: LITHIUM CARBONATE 600 MG CAPSULE PO SCH ×2 (08:45→16:39)
[2022-11-08] MEDS: BENZTROPINE MESYLATE 1 MG TABLET PO SCH ×2 (08:45→16:40)
[2022-11-08] MEDS: MULTIVITAMINS WITH MINERALS, THERAPEUTIC TABLET PO SCH (08:45)
[2022-11-08 10:58] VITALS: BP 107/65; PULSE 65; RESP 18; TEMP 98
[2022-11-08 16:11] LABS: GLUCOMETER DEV NAME(LOC) 3E.C; GLUCOSE,POINT OF CARE 140 MG/DL (70-110)
[2022-11-08] MEDS: HALOPERIDOL 10 MG TABLET PO SCH (20:43)
[2022-11-08] MEDS: ATORVASTATIN CALCIUM 40 MG TABLET PO SCH (20:43)
[2022-11-08 20:58] VITALS: BP 129/73; PULSE 75; RESP 18; TEMP 79.6
[2022-11-09 06:30] LABS: GLUCOMETER DEV NAME(LOC) 3E.C; GLUCOSE,POINT OF CARE 105 MG/DL (70-110)
[2022-11-09] MEDS: MetFORMIN HCL 500 MG TABLET PO SCH ×2 (07:01→16:44)
[2022-11-09] MEDS: LEVOTHYROXINE SODIUM 75 MCG TABLET PO SCH (07:01)
[2022-11-09] MEDS: LACTULOSE 20 GM/30 ML SOLUTION UDCUP PO SCH (08:49)
[2022-11-09] MEDS: MULTIVITAMINS WITH MINERALS, THERAPEUTIC TABLET PO SCH (08:49)
[2022-11-09] MEDS: LITHIUM CARBONATE 600 MG CAPSULE PO SCH ×2 (08:49→16:44)
[2022-11-09] MEDS: BENZTROPINE MESYLATE 1 MG TABLET PO SCH ×2 (08:49→16:44)
[2022-11-09 08:59] VITALS: BP 114/70; PULSE 66; RESP 18; TEMP 97.3
[2022-11-09 16:56] LABS: GLUCOMETER DEV NAME(LOC) 3E.C; GLUCOSE,POINT OF CARE 125 MG/DL (70-110)
[2022-11-09] MEDS: HALOPERIDOL 10 MG TABLET PO SCH (20:06)
[2022-11-09] MEDS: ATORVASTATIN CALCIUM 40 MG TABLET PO SCH (20:07)
[2022-11-09 20:27] VITALS: BP 132/69; PULSE 65; RESP 18; TEMP 97.8
[2022-11-10 06:01] LABS: GLUCOMETER DEV NAME(LOC) 3E.C; GLUCOSE,POINT OF CARE 99 MG/DL (70-110)
[2022-11-10] MEDS: LEVOTHYROXINE SODIUM 75 MCG TABLET PO SCH (06:35)
[2022-11-10] MEDS: MetFORMIN HCL 500 MG TABLET PO SCH ×2 (06:35→17:24)
[2022-11-10 08:07] VITALS: BP 136/82; PULSE 70; RESP 18; TEMP 98.1
[2022-11-10 08:30] VITALS: BP 136/82; PULSE 70; RESP 16; TEMP 98.1
[2022-11-10] MEDS: LITHIUM CARBONATE 600 MG CAPSULE PO SCH ×2 (09:11→17:25)
[2022-11-10] MEDS: MULTIVITAMINS WITH MINERALS, THERAPEUTIC TABLET PO SCH (09:11)
[2022-11-10] MEDS: LACTULOSE 20 GM/30 ML SOLUTION UDCUP PO SCH (09:11)
[2022-11-10] MEDS: BENZTROPINE MESYLATE 1 MG TABLET PO SCH ×2 (09:11→17:23)
[2022-11-10] MEDS: INSULIN LISPRO 100 UNITS/ML SQ PRN (16:36)
[2022-11-10 16:46] LABS: GLUCOMETER DEV NAME(LOC) 3E.C; GLUCOSE,POINT OF CARE 123 MG/DL (70-110)
[2022-11-10] MEDS: ATORVASTATIN CALCIUM 40 MG TABLET PO SCH (20:49)
[2022-11-10] MEDS: HALOPERIDOL 10 MG TABLET PO SCH (20:49)
[2022-11-10 22:10] VITALS: BP 128/77; PULSE 69; RESP 19; TEMP 97.8
[2022-11-11] MEDS: INSULIN LISPRO 100 UNITS/ML SQ PRN ×2 (06:34→16:36)
[2022-11-11 06:41] LABS: GLUCOMETER DEV NAME(LOC) 3E.C; GLUCOSE,POINT OF CARE 110 MG/DL (70-110)
[2022-11-11] MEDS: LEVOTHYROXINE SODIUM 75 MCG TABLET PO SCH (06:44)
[2022-11-11] MEDS: MetFORMIN HCL 500 MG TABLET PO SCH ×2 (06:45→16:35)
[2022-11-11 08:30] VITALS: BP 113/69; PULSE 68; RESP 18; TEMP 97.4
[2022-11-11] MEDS: MULTIVITAMINS WITH MINERALS, THERAPEUTIC TABLET PO SCH (09:02)
[2022-11-11] MEDS: BENZTROPINE MESYLATE 1 MG TABLET PO SCH ×2 (09:02→16:35)
[2022-11-11] MEDS: LITHIUM CARBONATE 600 MG CAPSULE PO SCH ×2 (09:03→16:33)
[2022-11-11] MEDS: LACTULOSE 20 GM/30 ML SOLUTION UDCUP PO SCH (09:03)
[2022-11-11 16:11] LABS: GLUCOMETER DEV NAME(LOC) 3E.C; GLUCOSE,POINT OF CARE 134 MG/DL (70-110)
[2022-11-11] MEDS: HALOPERIDOL 10 MG TABLET PO SCH (20:07)
[2022-11-11] MEDS: ATORVASTATIN CALCIUM 40 MG TABLET PO SCH (20:08)
[2022-11-11 21:11] VITALS: BP 134/74; PULSE 64; RESP 18; TEMP 97.5
[2022-11-12 05:26] LABS: GLUCOMETER DEV NAME(LOC) 3E.C; GLUCOSE,POINT OF CARE 93 MG/DL (70-110)
[2022-11-12] MEDS: LEVOTHYROXINE SODIUM 75 MCG TABLET PO SCH (06:06)
[2022-11-12] MEDS: MetFORMIN HCL 500 MG TABLET PO SCH ×2 (06:34→16:29)
[2022-11-12] MEDS: BENZTROPINE MESYLATE 1 MG TABLET PO SCH ×2 (08:12→16:29)
[2022-11-12] MEDS: MULTIVITAMINS WITH MINERALS, THERAPEUTIC TABLET PO SCH (08:12)
[2022-11-12] MEDS: LITHIUM CARBONATE 600 MG CAPSULE PO SCH ×2 (08:12→16:29)
[2022-11-12] MEDS: LACTULOSE 20 GM/30 ML SOLUTION UDCUP PO SCH (08:12)
[2022-11-12 08:56] VITALS: BP 115/78; PULSE 87; RESP 18; TEMP 97.6
[2022-11-12 16:41] LABS: GLUCOMETER DEV NAME(LOC) 3E.C; GLUCOSE,POINT OF CARE 136 MG/DL (70-110)
[2022-11-12] MEDS: ATORVASTATIN CALCIUM 40 MG TABLET PO SCH (20:11)
[2022-11-12] MEDS: HALOPERIDOL 10 MG TABLET PO SCH (20:11)
[2022-11-12 20:29] VITALS: BP 124/83; PULSE 70; RESP 18; TEMP 97.5
[2022-11-13 05:26] LABS: GLUCOMETER DEV NAME(LOC) 3E.C; GLUCOSE,POINT OF CARE 90 MG/DL (70-110)
[2022-11-13] MEDS: LEVOTHYROXINE SODIUM 75 MCG TABLET PO SCH (06:07)
[2022-11-13] MEDS: MetFORMIN HCL 500 MG TABLET PO SCH ×2 (06:42→17:07)
[2022-11-13 09:35] VITALS: BP 124/70; PULSE 68; RESP 18; TEMP 98.2
[2022-11-13] MEDS: LACTULOSE 20 GM/30 ML SOLUTION UDCUP PO SCH (10:35)
[2022-11-13] MEDS: LITHIUM CARBONATE 600 MG CAPSULE PO SCH ×2 (10:35→17:06)
[2022-11-13] MEDS: MULTIVITAMINS WITH MINERALS, THERAPEUTIC TABLET PO SCH (10:36)
[2022-11-13] MEDS: BENZTROPINE MESYLATE 1 MG TABLET PO SCH ×2 (10:36→17:07)
[2022-11-13 17:26] LABS: GLUCOMETER DEV NAME(LOC) 3E.C; GLUCOSE,POINT OF CARE 130 MG/DL (70-110)
[2022-11-13] MEDS: ATORVASTATIN CALCIUM 40 MG TABLET PO SCH (20:08)
[2022-11-13] MEDS: HALOPERIDOL 10 MG TABLET PO SCH (20:09)
[2022-11-13 21:50] VITALS: BP 128/74; PULSE 77; RESP 18; TEMP 98
[2022-11-14] MEDS: MetFORMIN HCL 500 MG TABLET PO SCH ×2 (06:36→16:45)
[2022-11-14] MEDS: INSULIN LISPRO 100 UNITS/ML SQ PRN ×2 (06:37→17:00)
[2022-11-14] MEDS: LEVOTHYROXINE SODIUM 75 MCG TABLET PO SCH (06:37)
[2022-11-14 07:11] LABS: GLUCOMETER DEV NAME(LOC) 3E.C; GLUCOSE,POINT OF CARE 93 MG/DL (70-110)
[2022-11-14] MEDS: MULTIVITAMINS WITH MINERALS, THERAPEUTIC TABLET PO SCH (08:26)
[2022-11-14] MEDS: LITHIUM CARBONATE 600 MG CAPSULE PO SCH ×2 (08:26→16:45)
[2022-11-14] MEDS: LACTULOSE 20 GM/30 ML SOLUTION UDCUP PO SCH (08:26)
[2022-11-14] MEDS: BENZTROPINE MESYLATE 1 MG TABLET PO SCH ×2 (08:27→16:45)
[2022-11-14 09:36] VITALS: BP 128/86; PULSE 80; RESP 18; TEMP 97.7
[2022-11-14 16:56] LABS: GLUCOMETER DEV NAME(LOC) 3E.C; GLUCOSE,POINT OF CARE 207 MG/DL (70-110)
[2022-11-14] MEDS: HALOPERIDOL 10 MG TABLET PO SCH (20:37)
[2022-11-14] MEDS: ATORVASTATIN CALCIUM 40 MG TABLET PO SCH (20:37)
[2022-11-14 21:11] VITALS: BP 144/69; PULSE 66; RESP 18; TEMP 98.8
[2022-11-15 05:47] LABS: GLUCOMETER DEV NAME(LOC) 3E.C; GLUCOSE,POINT OF CARE 103 MG/DL (70-110)
[2022-11-15] MEDS: LEVOTHYROXINE SODIUM 75 MCG TABLET PO SCH (06:46)
[2022-11-15] MEDS: MetFORMIN HCL 500 MG TABLET PO SCH ×2 (07:00→16:42)
[2022-11-15] MEDS: LITHIUM CARBONATE 600 MG CAPSULE PO SCH ×2 (08:25→16:42)
[2022-11-15] MEDS: BENZTROPINE MESYLATE 1 MG TABLET PO SCH ×2 (08:25→16:42)
[2022-11-15] MEDS: LACTULOSE 20 GM/30 ML SOLUTION UDCUP PO SCH (08:25)
[2022-11-15] MEDS: MULTIVITAMINS WITH MINERALS, THERAPEUTIC TABLET PO SCH (08:25)
[2022-11-15 09:44] VITALS: BP 108/58; PULSE 65; RESP 16; TEMP 97.3
[2022-11-15 16:46] LABS: GLUCOMETER DEV NAME(LOC) 3E.C; GLUCOSE,POINT OF CARE 124 MG/DL (70-110)
[2022-11-15 20:31] VITALS: BP 143/81; PULSE 70; RESP 18; TEMP 97.6
[2022-11-15] MEDS: ATORVASTATIN CALCIUM 40 MG TABLET PO SCH (20:33)
[2022-11-15] MEDS: HALOPERIDOL 10 MG TABLET PO SCH (20:33)
[2022-11-16 06:06] LABS: GLUCOMETER DEV NAME(LOC) 3E.C; GLUCOSE,POINT OF CARE 134 MG/DL (70-110)
[2022-11-16] MEDS: LEVOTHYROXINE SODIUM 75 MCG TABLET PO SCH (06:36)
[2022-11-16] MEDS: MetFORMIN HCL 500 MG TABLET PO SCH ×2 (06:36→16:54)
[2022-11-16 08:00] VITALS: BP 109/63; PULSE 72; RESP 18; TEMP 97.4
[2022-11-16] MEDS: LACTULOSE 20 GM/30 ML SOLUTION UDCUP PO SCH (08:47)
[2022-11-16] MEDS: LITHIUM CARBONATE 600 MG CAPSULE PO SCH ×2 (08:47→16:54)
[2022-11-16] MEDS: MULTIVITAMINS WITH MINERALS, THERAPEUTIC TABLET PO SCH (08:47)
[2022-11-16] MEDS: BENZTROPINE MESYLATE 1 MG TABLET PO SCH ×2 (08:47→16:54)
[2022-11-16] MEDS: INSULIN LISPRO 100 UNITS/ML SQ PRN (16:57)
[2022-11-16 17:06] LABS: GLUCOMETER DEV NAME(LOC) 3E.C; GLUCOSE,POINT OF CARE 142 MG/DL (70-110)
[2022-11-16] MEDS: HALOPERIDOL 10 MG TABLET PO SCH (20:37)
[2022-11-16] MEDS: ATORVASTATIN CALCIUM 40 MG TABLET PO SCH (20:37)
[2022-11-16 20:48] VITALS: BP 118/78; PULSE 81; RESP 19; TEMP 97.9
[2022-11-17 05:51] LABS: GLUCOMETER DEV NAME(LOC) 3E.C; GLUCOSE,POINT OF CARE 93 MG/DL (70-110)
[2022-11-17] MEDS: MetFORMIN HCL 500 MG TABLET PO SCH ×2 (06:51→16:52)
[2022-11-17] MEDS: LEVOTHYROXINE SODIUM 75 MCG TABLET PO SCH (06:51)
[2022-11-17] MEDS: INSULIN LISPRO 100 UNITS/ML SQ PRN (06:57)
[2022-11-17] MEDS: LITHIUM CARBONATE 600 MG CAPSULE PO SCH ×2 (08:34→16:52)
[2022-11-17] MEDS: MULTIVITAMINS WITH MINERALS, THERAPEUTIC TABLET PO SCH (08:34)
[2022-11-17] MEDS: BENZTROPINE MESYLATE 1 MG TABLET PO SCH ×2 (08:34→16:52)
[2022-11-17] MEDS: LACTULOSE 20 GM/30 ML SOLUTION UDCUP PO SCH (08:34)
[2022-11-17 09:00] VITALS: BP 106/66; PULSE 59; RESP 18; TEMP 97.3
[2022-11-17 16:56] LABS: GLUCOMETER DEV NAME(LOC) 3E.C; GLUCOSE,POINT OF CARE 132 MG/DL (70-110)
[2022-11-17] MEDS: HALOPERIDOL 10 MG TABLET PO SCH (20:17)
[2022-11-17] MEDS: ATORVASTATIN CALCIUM 40 MG TABLET PO SCH (20:17)
[2022-11-17 21:22] VITALS: BP 122/67; PULSE 66; RESP 18; TEMP 98
[2022-11-18 05:46] LABS: GLUCOMETER DEV NAME(LOC) 3E.C; GLUCOSE,POINT OF CARE 103 MG/DL (70-110)
[2022-11-18] MEDS: LEVOTHYROXINE SODIUM 75 MCG TABLET PO SCH (06:35)
[2022-11-18] MEDS: MetFORMIN HCL 500 MG TABLET PO SCH ×2 (06:36→16:32)
[2022-11-18] MEDS: LITHIUM CARBONATE 600 MG CAPSULE PO SCH ×2 (09:11→16:32)
[2022-11-18] MEDS: BENZTROPINE MESYLATE 1 MG TABLET PO SCH ×2 (09:11→16:32)
[2022-11-18] MEDS: LACTULOSE 20 GM/30 ML SOLUTION UDCUP PO SCH (09:11)
[2022-11-18] MEDS: MULTIVITAMINS WITH MINERALS, THERAPEUTIC TABLET PO SCH (09:11)
[2022-11-18 09:29] VITALS: BP 116/68; PULSE 69; RESP 18; TEMP 97
[2022-11-18 16:46] LABS: GLUCOMETER DEV NAME(LOC) 3E.C; GLUCOSE,POINT OF CARE 124 MG/DL (70-110)
[2022-11-18] MEDS: HALOPERIDOL 10 MG TABLET PO SCH (21:12)
[2022-11-18] MEDS: ATORVASTATIN CALCIUM 40 MG TABLET PO SCH (21:12)
[2022-11-18 22:23] VITALS: RESP 17
[2022-11-19 06:30] LABS: GLUCOMETER DEV NAME(LOC) 3E.C; GLUCOSE,POINT OF CARE 100 MG/DL (70-110)
[2022-11-19] MEDS: LEVOTHYROXINE SODIUM 75 MCG TABLET PO SCH (06:39)
[2022-11-19] MEDS: MetFORMIN HCL 500 MG TABLET PO SCH ×2 (06:39→17:07)
[2022-11-19 08:00] VITALS: BP 120/75; PULSE 66; RESP 20; TEMP 97.6
[2022-11-19] MEDS: LITHIUM CARBONATE 600 MG CAPSULE PO SCH ×2 (08:19→16:22)
[2022-11-19] MEDS: LACTULOSE 20 GM/30 ML SOLUTION UDCUP PO SCH (08:19)
[2022-11-19] MEDS: MULTIVITAMINS WITH MINERALS, THERAPEUTIC TABLET PO SCH (08:19)
[2022-11-19] MEDS: BENZTROPINE MESYLATE 1 MG TABLET PO SCH ×2 (08:19→16:22)
[2022-11-19 16:41] LABS: GLUCOMETER DEV NAME(LOC) 3E.C; GLUCOSE,POINT OF CARE 129 MG/DL (70-110)
[2022-11-19] MEDS: INSULIN LISPRO 100 UNITS/ML SQ PRN (19:16)
[2022-11-19] MEDS: HALOPERIDOL 10 MG TABLET PO SCH (21:09)
[2022-11-19] MEDS: ATORVASTATIN CALCIUM 40 MG TABLET PO SCH (21:10)
[2022-11-19 21:49] VITALS: BP 123/79; PULSE 86; RESP 19; TEMP 97.6
[2022-11-20 05:36] LABS: GLUCOMETER DEV NAME(LOC) 3E.C; GLUCOSE,POINT OF CARE 106 MG/DL (70-110)
[2022-11-20] MEDS: INSULIN LISPRO 100 UNITS/ML SQ PRN ×2 (06:50→16:57)
[2022-11-20] MEDS: MetFORMIN HCL 500 MG TABLET PO SCH ×2 (06:54→16:56)
[2022-11-20] MEDS: LEVOTHYROXINE SODIUM 75 MCG TABLET PO SCH (06:54)
[2022-11-20 08:00] VITALS: BP 107/55; PULSE 62; RESP 19; TEMP 97.8
[2022-11-20] MEDS: LACTULOSE 20 GM/30 ML SOLUTION UDCUP PO SCH (09:00)
[2022-11-20] MEDS: MULTIVITAMINS WITH MINERALS, THERAPEUTIC TABLET PO SCH (09:00)
[2022-11-20] MEDS: BENZTROPINE MESYLATE 1 MG TABLET PO SCH ×2 (09:00→16:56)
[2022-11-20] MEDS: LITHIUM CARBONATE 600 MG CAPSULE PO SCH ×2 (09:01→16:56)
[2022-11-20 16:16] LABS: GLUCOMETER DEV NAME(LOC) 3E.C; GLUCOSE,POINT OF CARE 114 MG/DL (70-110)
[2022-11-20] MEDS: HALOPERIDOL 10 MG TABLET PO SCH (20:44)
[2022-11-20] MEDS: ATORVASTATIN CALCIUM 40 MG TABLET PO SCH (20:44)
[2022-11-20 21:16] VITALS: BP 118/59; PULSE 63; RESP 18; TEMP 98
[2022-11-21 06:26] LABS: GLUCOMETER DEV NAME(LOC) 3E.C; GLUCOSE,POINT OF CARE 105 MG/DL (70-110)
[2022-11-21] MEDS: LEVOTHYROXINE SODIUM 75 MCG TABLET PO SCH (06:38)
[2022-11-21] MEDS: MetFORMIN HCL 500 MG TABLET PO SCH ×2 (06:38→16:13)
[2022-11-21] MEDS: INSULIN LISPRO 100 UNITS/ML SQ PRN ×2 (06:39→17:07)
[2022-11-21 08:57] VITALS: BP 122/71; PULSE 71; RESP 18; TEMP 97.1
[2022-11-21] MEDS: LACTULOSE 20 GM/30 ML SOLUTION UDCUP PO SCH (09:30)
[2022-11-21] MEDS: LITHIUM CARBONATE 600 MG CAPSULE PO SCH ×2 (09:30→16:13)
[2022-11-21] MEDS: BENZTROPINE MESYLATE 1 MG TABLET PO SCH ×2 (09:30→16:13)
[2022-11-21] MEDS: MULTIVITAMINS WITH MINERALS, THERAPEUTIC TABLET PO SCH (09:30)
[2022-11-21 16:31] LABS: GLUCOMETER DEV NAME(LOC) 3E.C; GLUCOSE,POINT OF CARE 148 MG/DL (70-110)
[2022-11-21] MEDS: ATORVASTATIN CALCIUM 40 MG TABLET PO SCH (20:24)
[2022-11-21] MEDS: HALOPERIDOL 10 MG TABLET PO SCH (20:24)
[2022-11-21 21:35] VITALS: BP 133/71; PULSE 70; RESP 18; TEMP 98
[2022-11-22 06:11] LABS: GLUCOMETER DEV NAME(LOC) 3E.C; GLUCOSE,POINT OF CARE 100 MG/DL (70-110)
[2022-11-22] MEDS: MetFORMIN HCL 500 MG TABLET PO SCH ×2 (06:37→16:22)
[2022-11-22] MEDS: LEVOTHYROXINE SODIUM 75 MCG TABLET PO SCH (06:37)
[2022-11-22] MEDS: INSULIN LISPRO 100 UNITS/ML SQ PRN ×2 (06:37→17:09)
[2022-11-22] MEDS: LITHIUM CARBONATE 600 MG CAPSULE PO SCH ×2 (08:04→16:22)
[2022-11-22] MEDS: MULTIVITAMINS WITH MINERALS, THERAPEUTIC TABLET PO SCH (08:04)
[2022-11-22] MEDS: LACTULOSE 20 GM/30 ML SOLUTION UDCUP PO SCH (08:04)
[2022-11-22] MEDS: BENZTROPINE MESYLATE 1 MG TABLET PO SCH ×2 (08:04→16:22)
[2022-11-22 09:09] VITALS: BP 126/68; PULSE 65; RESP 18; TEMP 97.2
[2022-11-22 16:31] LABS: GLUCOMETER DEV NAME(LOC) 3E.C; GLUCOSE,POINT OF CARE 163 MG/DL (70-110)
[2022-11-22 20:16] VITALS: BP 143/73; PULSE 68; RESP 17; TEMP 98.4
[2022-11-22] MEDS: HALOPERIDOL 10 MG TABLET PO SCH (20:44)
[2022-11-22] MEDS: ATORVASTATIN CALCIUM 40 MG TABLET PO SCH (20:44)
[2022-11-23 06:26] LABS: GLUCOMETER DEV NAME(LOC) 3E.C; GLUCOSE,POINT OF CARE 105 MG/DL (70-110)
[2022-11-23] MEDS: INSULIN LISPRO 100 UNITS/ML SQ PRN ×2 (06:35→17:34)
[2022-11-23] MEDS: LEVOTHYROXINE SODIUM 75 MCG TABLET PO SCH (06:35)
[2022-11-23] MEDS: MetFORMIN HCL 500 MG TABLET PO SCH ×2 (06:46→17:07)
[2022-11-23 08:00] VITALS: BP 107/59; PULSE 79; RESP 18; TEMP 97.6
[2022-11-23] MEDS: MULTIVITAMINS WITH MINERALS, THERAPEUTIC TABLET PO SCH (08:38)
[2022-11-23] MEDS: BENZTROPINE MESYLATE 1 MG TABLET PO SCH ×2 (08:38→16:02)
[2022-11-23] MEDS: LACTULOSE 20 GM/30 ML SOLUTION UDCUP PO SCH (08:39)
[2022-11-23] MEDS: LITHIUM CARBONATE 600 MG CAPSULE PO SCH ×2 (08:39→16:01)
[2022-11-23 16:16] LABS: GLUCOMETER DEV NAME(LOC) 3E.C; GLUCOSE,POINT OF CARE 162 MG/DL (70-110)
[2022-11-23] MEDS: ATORVASTATIN CALCIUM 40 MG TABLET PO SCH (20:40)
[2022-11-23] MEDS: HALOPERIDOL 10 MG TABLET PO SCH (20:40)
[2022-11-23 21:09] VITALS: BP 141/73; PULSE 70; RESP 18; TEMP 98.3
[2022-11-24 06:21] LABS: GLUCOMETER DEV NAME(LOC) 3E.C; GLUCOSE,POINT OF CARE 108 MG/DL (70-110)
[2022-11-24] MEDS: LEVOTHYROXINE SODIUM 75 MCG TABLET PO SCH (06:52)
[2022-11-24] MEDS: MetFORMIN HCL 500 MG TABLET PO SCH ×2 (06:52→17:54)
[2022-11-24] MEDS: INSULIN LISPRO 100 UNITS/ML SQ PRN ×2 (06:53→16:37)
[2022-11-24] MEDS: LITHIUM CARBONATE 600 MG CAPSULE PO SCH ×2 (08:03→16:36)
[2022-11-24] MEDS: BENZTROPINE MESYLATE 1 MG TABLET PO SCH ×2 (08:04→16:36)
[2022-11-24] MEDS: MULTIVITAMINS WITH MINERALS, THERAPEUTIC TABLET PO SCH (08:05)
[2022-11-24] MEDS: LACTULOSE 20 GM/30 ML SOLUTION UDCUP PO SCH (08:05)
[2022-11-24 08:45] VITALS: BP 105/59; PULSE 64; RESP 18; TEMP 97.8
[2022-11-24 16:47] LABS: GLUCOMETER DEV NAME(LOC) 3E.C; GLUCOSE,POINT OF CARE 155 MG/DL (70-110)
[2022-11-24 20:40] VITALS: BP 121/65; PULSE 67; RESP 18; TEMP 98
[2022-11-24] MEDS: HALOPERIDOL 10 MG TABLET PO SCH (20:51)
[2022-11-24] MEDS: ATORVASTATIN CALCIUM 40 MG TABLET PO SCH (20:51)
[2022-11-25 06:36] LABS: GLUCOMETER DEV NAME(LOC) 3E.C; GLUCOSE,POINT OF CARE 108 MG/DL (70-110)
[2022-11-25] MEDS: INSULIN LISPRO 100 UNITS/ML SQ PRN ×2 (06:39→16:47)
[2022-11-25] MEDS: MetFORMIN HCL 500 MG TABLET PO SCH ×2 (06:54→17:40)
[2022-11-25] MEDS: LEVOTHYROXINE SODIUM 75 MCG TABLET PO SCH (06:54)
[2022-11-25 08:00] VITALS: BP 116/60; PULSE 80; RESP 18; TEMP 97.4
[2022-11-25] MEDS: MULTIVITAMINS WITH MINERALS, THERAPEUTIC TABLET PO SCH (09:13)
[2022-11-25] MEDS: BENZTROPINE MESYLATE 1 MG TABLET PO SCH ×2 (09:13→17:40)
[2022-11-25] MEDS: LITHIUM CARBONATE 600 MG CAPSULE PO SCH ×2 (09:14→17:40)
[2022-11-25] MEDS: LACTULOSE 20 GM/30 ML SOLUTION UDCUP PO SCH (09:14)
[2022-11-25 09:16] VITALS: BP 116/60; PULSE 80; RESP 18; TEMP 97.6
[2022-11-25] MEDS: BENZOCAINE/MENTHOL LOZENGE PO PRN ×2 (09:47→17:46)
[2022-11-25 16:31] LABS: GLUCOMETER DEV NAME(LOC) 3E.C; GLUCOSE,POINT OF CARE 156 MG/DL (70-110)
[2022-11-25] MEDS: ATORVASTATIN CALCIUM 40 MG TABLET PO SCH (20:41)
[2022-11-25] MEDS: HALOPERIDOL 10 MG TABLET PO SCH (20:41)
[2022-11-25 23:17] VITALS: BP 127/77; PULSE 73; RESP 18; TEMP 98
[2022-11-26] MEDS: BENZOCAINE/MENTHOL LOZENGE PO PRN (03:52)
[2022-11-26 06:21] LABS: GLUCOMETER DEV NAME(LOC) 3E.C; GLUCOSE,POINT OF CARE 121 MG/DL (70-110)
[2022-11-26] MEDS: INSULIN LISPRO 100 UNITS/ML SQ PRN (06:34)
[2022-11-26] MEDS: LEVOTHYROXINE SODIUM 75 MCG TABLET PO SCH (06:35)
[2022-11-26] MEDS: MetFORMIN HCL 500 MG TABLET PO SCH ×2 (06:46→17:31)
[2022-11-26] MEDS: LITHIUM CARBONATE 600 MG CAPSULE PO SCH ×2 (08:36→16:19)
[2022-11-26] MEDS: LACTULOSE 20 GM/30 ML SOLUTION UDCUP PO SCH (08:36)
[2022-11-26] MEDS: MULTIVITAMINS WITH MINERALS, THERAPEUTIC TABLET PO SCH (08:36)
[2022-11-26] MEDS: BENZTROPINE MESYLATE 1 MG TABLET PO SCH ×2 (08:36→16:19)
[2022-11-26 09:51] VITALS: BP 112/72; PULSE 67; RESP 18; TEMP 97.6
[2022-11-26 16:31] LABS: GLUCOMETER DEV NAME(LOC) 3E.C; GLUCOSE,POINT OF CARE 97 MG/DL (70-110)
[2022-11-26] MEDS: HALOPERIDOL 10 MG TABLET PO SCH (20:23)
[2022-11-26] MEDS: ATORVASTATIN CALCIUM 40 MG TABLET PO SCH (20:23)
[2022-11-26 20:55] VITALS: BP 138/78; PULSE 78; RESP 18; TEMP 97.4
[2022-11-27 05:36] LABS: GLUCOMETER DEV NAME(LOC) 3E.C; GLUCOSE,POINT OF CARE 107 MG/DL (70-110)
[2022-11-27] MEDS: MetFORMIN HCL 500 MG TABLET PO SCH ×2 (06:34→16:39)
[2022-11-27] MEDS: LEVOTHYROXINE SODIUM 75 MCG TABLET PO SCH (06:34)
[2022-11-27] MEDS: BENZTROPINE MESYLATE 1 MG TABLET PO SCH ×2 (08:15→16:38)
[2022-11-27] MEDS: LITHIUM CARBONATE 600 MG CAPSULE PO SCH ×2 (08:15→16:38)
[2022-11-27] MEDS: MULTIVITAMINS WITH MINERALS, THERAPEUTIC TABLET PO SCH (08:15)
[2022-11-27] MEDS: LACTULOSE 20 GM/30 ML SOLUTION UDCUP PO SCH (08:15)
[2022-11-27 08:30] VITALS: BP 115/65; PULSE 62; RESP 17; TEMP 97.8
[2022-11-27 16:41] LABS: GLUCOMETER DEV NAME(LOC) 3E.C; GLUCOSE,POINT OF CARE 149 MG/DL (70-110)
[2022-11-27] MEDS: INSULIN LISPRO 100 UNITS/ML SQ PRN (17:59)
[2022-11-27] MEDS: BENZOCAINE/MENTHOL LOZENGE PO PRN (18:37)
[2022-11-27] MEDS: ATORVASTATIN CALCIUM 40 MG TABLET PO SCH (21:01)
[2022-11-27] MEDS: HALOPERIDOL 10 MG TABLET PO SCH (21:01)
[2022-11-27 21:18] VITALS: BP 121/72; PULSE 79; RESP 18; TEMP 97.3
[2022-11-28] MEDS: BENZOCAINE/MENTHOL LOZENGE PO PRN (04:28)
[2022-11-28] MEDS: INSULIN LISPRO 100 UNITS/ML SQ PRN (06:33)
[2022-11-28 06:41] LABS: GLUCOMETER DEV NAME(LOC) 3E.C; GLUCOSE,POINT OF CARE 105 MG/DL (70-110)
[2022-11-28] MEDS: LEVOTHYROXINE SODIUM 75 MCG TABLET PO SCH (06:49)
[2022-11-28] MEDS: MetFORMIN HCL 500 MG TABLET PO SCH ×2 (06:49→16:34)
[2022-11-28] MEDS: LACTULOSE 20 GM/30 ML SOLUTION UDCUP PO SCH (08:29)
[2022-11-28] MEDS: LITHIUM CARBONATE 600 MG CAPSULE PO SCH ×2 (08:29→16:35)
[2022-11-28] MEDS: BENZTROPINE MESYLATE 1 MG TABLET PO SCH ×2 (08:29→16:35)
[2022-11-28] MEDS: MULTIVITAMINS WITH MINERALS, THERAPEUTIC TABLET PO SCH (08:30)
[2022-11-28 10:19] VITALS: BP 128/95; PULSE 69; RESP 18; TEMP 97.6
[2022-11-28] MEDS ORDERED: BENZOCAINE/MENTHOL LOZENGE [6 LOZENGES/PACKET] PO PRN (15:30)
[2022-11-28 17:06] LABS: GLUCOMETER DEV NAME(LOC) 3E.C; GLUCOSE,POINT OF CARE 125 MG/DL (70-110)
[2022-11-28 20:55] VITALS: BP 130/68; PULSE 64; RESP 18; TEMP 98
[2022-11-28] MEDS: HALOPERIDOL 10 MG TABLET PO SCH (21:12)
[2022-11-28] MEDS: ATORVASTATIN CALCIUM 40 MG TABLET PO SCH (21:12)
[2022-11-29 04:26] LABS: GLUCOMETER DEV NAME(LOC) 3E.C; GLUCOSE,POINT OF CARE 112 MG/DL (70-110)
[2022-11-29] MEDS: MetFORMIN HCL 500 MG TABLET PO SCH ×2 (06:34→16:16)
[2022-11-29] MEDS: LEVOTHYROXINE SODIUM 75 MCG TABLET PO SCH (06:34)
[2022-11-29] MEDS: BENZTROPINE MESYLATE 1 MG TABLET PO SCH ×2 (09:14→16:16)
[2022-11-29] MEDS: MULTIVITAMINS WITH MINERALS, THERAPEUTIC TABLET PO SCH (09:14)
[2022-11-29] MEDS: LITHIUM CARBONATE 600 MG CAPSULE PO SCH ×2 (09:14→16:17)
[2022-11-29] MEDS: LACTULOSE 20 GM/30 ML SOLUTION UDCUP PO SCH (09:15)
[2022-11-29 10:55] VITALS: BP 101/63; PULSE 60; RESP 18; TEMP 97.8
[2022-11-29] MEDS: INSULIN LISPRO 100 UNITS/ML SQ PRN (16:19)
[2022-11-29 16:32] LABS: GLUCOMETER DEV NAME(LOC) 3E.C; GLUCOSE,POINT OF CARE 142 MG/DL (70-110)
[2022-11-29 20:55] VITALS: BP 147/84; PULSE 70; RESP 19; TEMP 97.6
[2022-11-29] MEDS: ATORVASTATIN CALCIUM 40 MG TABLET PO SCH (20:57)
[2022-11-29] MEDS: HALOPERIDOL 10 MG TABLET PO SCH (20:57)
[2022-11-30 05:26] LABS: GLUCOMETER DEV NAME(LOC) 3E.C; GLUCOSE,POINT OF CARE 132 MG/DL (70-110)
[2022-11-30] MEDS: MetFORMIN HCL 500 MG TABLET PO SCH ×2 (06:33→17:31)
[2022-11-30] MEDS: LEVOTHYROXINE SODIUM 75 MCG TABLET PO SCH (06:34)
[2022-11-30] MEDS: BENZTROPINE MESYLATE 1 MG TABLET PO SCH ×2 (09:13→17:21)
[2022-11-30] MEDS: MULTIVITAMINS WITH MINERALS, THERAPEUTIC TABLET PO SCH (09:13)
[2022-11-30] MEDS: LACTULOSE 20 GM/30 ML SOLUTION UDCUP PO SCH (09:13)
[2022-11-30] MEDS: LITHIUM CARBONATE 600 MG CAPSULE PO SCH ×2 (09:13→17:21)
[2022-11-30 10:20] VITALS: BP 136/78; PULSE 70; RESP 18; TEMP 97.3
[2022-11-30 17:06] LABS: GLUCOMETER DEV NAME(LOC) 3E.C; GLUCOSE,POINT OF CARE 203 MG/DL (70-110)
[2022-11-30] MEDS: INSULIN LISPRO 100 UNITS/ML SQ PRN (17:32)
[2022-11-30 20:40] VITALS: BP 131/71; PULSE 70; RESP 18; TEMP 97.7
[2022-11-30] MEDS: ATORVASTATIN CALCIUM 40 MG TABLET PO SCH (21:21)
[2022-11-30] MEDS: HALOPERIDOL 10 MG TABLET PO SCH (21:21)
[2022-12-01 05:41] LABS: GLUCOMETER DEV NAME(LOC) 3E.C; GLUCOSE,POINT OF CARE 121 MG/DL (70-110)
[2022-12-01] MEDS: LEVOTHYROXINE SODIUM 75 MCG TABLET PO SCH (06:41)
[2022-12-01] MEDS: MetFORMIN HCL 500 MG TABLET PO SCH ×2 (06:41→17:23)
[2022-12-01 08:07] VITALS: BP 110/70; PULSE 66; RESP 20; TEMP 98.7
[2022-12-01] MEDS: LITHIUM CARBONATE 600 MG CAPSULE PO SCH ×2 (08:43→17:23)
[2022-12-01] MEDS: LACTULOSE 20 GM/30 ML SOLUTION UDCUP PO SCH (08:43)
[2022-12-01] MEDS: BENZTROPINE MESYLATE 1 MG TABLET PO SCH ×2 (08:43→17:23)
[2022-12-01] MEDS: MULTIVITAMINS WITH MINERALS, THERAPEUTIC TABLET PO SCH (08:43)
[2022-12-01 16:56] LABS: GLUCOMETER DEV NAME(LOC) 3E.C; GLUCOSE,POINT OF CARE 169 MG/DL (70-110)
[2022-12-01] MEDS: INSULIN LISPRO 100 UNITS/ML SQ PRN (17:25)
[2022-12-01 20:37] VITALS: BP 129/78; PULSE 64; RESP 18; TEMP 97.8
[2022-12-01] MEDS: ATORVASTATIN CALCIUM 40 MG TABLET PO SCH (21:24)
[2022-12-01] MEDS: HALOPERIDOL 10 MG TABLET PO SCH (21:24)
[2022-12-02 05:51] LABS: GLUCOMETER DEV NAME(LOC) 3E.C; GLUCOSE,POINT OF CARE 103 MG/DL (70-110)
[2022-12-02] MEDS: MetFORMIN HCL 500 MG TABLET PO SCH ×2 (06:39→17:27)
[2022-12-02] MEDS: LEVOTHYROXINE SODIUM 75 MCG TABLET PO SCH (06:39)
[2022-12-02 08:07] VITALS: BP 120/74; PULSE 68; RESP 18; TEMP 97.5
[2022-12-02] MEDS: LACTULOSE 20 GM/30 ML SOLUTION UDCUP PO SCH (08:35)
[2022-12-02] MEDS: MULTIVITAMINS WITH MINERALS, THERAPEUTIC TABLET PO SCH (08:35)
[2022-12-02] MEDS: LITHIUM CARBONATE 600 MG CAPSULE PO SCH ×2 (08:35→17:27)
[2022-12-02] MEDS: BENZTROPINE MESYLATE 1 MG TABLET PO SCH ×2 (08:35→17:26)
[2022-12-02 16:32] LABS: GLUCOMETER DEV NAME(LOC) 3E.C; GLUCOSE,POINT OF CARE 123 MG/DL (70-110)
[2022-12-02] MEDS: HALOPERIDOL 10 MG TABLET PO SCH (20:36)
[2022-12-02] MEDS: ATORVASTATIN CALCIUM 40 MG TABLET PO SCH (20:37)
[2022-12-02 20:44] VITALS: BP 116/71; PULSE 66; RESP 18; TEMP 98
[2022-12-03] MEDS: MetFORMIN HCL 500 MG TABLET PO SCH ×2 (06:37→17:36)
[2022-12-03] MEDS: LEVOTHYROXINE SODIUM 75 MCG TABLET PO SCH (06:37)
[2022-12-03] MEDS: INSULIN LISPRO 100 UNITS/ML SQ PRN (06:38)
[2022-12-03 07:35] LABS: GLUCOMETER DEV NAME(LOC) 3E.C; GLUCOSE,POINT OF CARE 112 MG/DL (70-110)
[2022-12-03] MEDS: LITHIUM CARBONATE 600 MG CAPSULE PO SCH ×2 (08:38→17:35)
[2022-12-03] MEDS: LACTULOSE 20 GM/30 ML SOLUTION UDCUP PO SCH (08:38)
[2022-12-03] MEDS: MULTIVITAMINS WITH MINERALS, THERAPEUTIC TABLET PO SCH (08:38)
[2022-12-03] MEDS: BENZTROPINE MESYLATE 1 MG TABLET PO SCH ×2 (08:38→17:35)
[2022-12-03 09:32] VITALS: BP 112/64; PULSE 60; RESP 18; TEMP 97.3
[2022-12-03 16:55] LABS: GLUCOMETER DEV NAME(LOC) 3E.C; GLUCOSE,POINT OF CARE 109 MG/DL (70-110)
[2022-12-03] MEDS: ATORVASTATIN CALCIUM 40 MG TABLET PO SCH (20:23)
[2022-12-03] MEDS: HALOPERIDOL 10 MG TABLET PO SCH (20:23)
[2022-12-03 20:41] VITALS: BP 124/61; PULSE 65; RESP 18; TEMP 98.2
[2022-12-04] MEDS: LEVOTHYROXINE SODIUM 75 MCG TABLET PO SCH (06:31)
[2022-12-04] MEDS: MetFORMIN HCL 500 MG TABLET PO SCH ×2 (06:31→17:25)
[2022-12-04] MEDS: INSULIN LISPRO 100 UNITS/ML SQ PRN (06:34)
[2022-12-04 07:16] LABS: GLUCOMETER DEV NAME(LOC) 3E.C; GLUCOSE,POINT OF CARE 96 MG/DL (70-110)
[2022-12-04] MEDS: LACTULOSE 20 GM/30 ML SOLUTION UDCUP PO SCH (08:48)
[2022-12-04] MEDS: MULTIVITAMINS WITH MINERALS, THERAPEUTIC TABLET PO SCH (08:48)
[2022-12-04] MEDS: BENZTROPINE MESYLATE 1 MG TABLET PO SCH ×2 (08:48→17:25)
[2022-12-04] MEDS: LITHIUM CARBONATE 600 MG CAPSULE PO SCH ×2 (08:48→17:25)
[2022-12-04 09:29] VITALS: BP 120/62; PULSE 68; RESP 18; TEMP 97
[2022-12-04 17:01] LABS: GLUCOMETER DEV NAME(LOC) 3E.C; GLUCOSE,POINT OF CARE 114 MG/DL (70-110)
[2022-12-04 20:52] VITALS: BP 115/65; PULSE 60; RESP 18; TEMP 97.7
[2022-12-04] MEDS: HALOPERIDOL 10 MG TABLET PO SCH (21:46)
[2022-12-04] MEDS: ATORVASTATIN CALCIUM 40 MG TABLET PO SCH (21:47)
[2022-12-05] MEDS: LEVOTHYROXINE SODIUM 75 MCG TABLET PO SCH (06:42)
[2022-12-05] MEDS: MetFORMIN HCL 500 MG TABLET PO SCH ×2 (06:42→16:45)
[2022-12-05 06:56] LABS: GLUCOMETER DEV NAME(LOC) 3E.C; GLUCOSE,POINT OF CARE 108 MG/DL (70-110)
[2022-12-05] MEDS: BENZTROPINE MESYLATE 1 MG TABLET PO SCH ×2 (08:26→16:45)
[2022-12-05] MEDS: LACTULOSE 20 GM/30 ML SOLUTION UDCUP PO SCH (08:26)
[2022-12-05] MEDS: MULTIVITAMINS WITH MINERALS, THERAPEUTIC TABLET PO SCH (08:26)
[2022-12-05] MEDS: LITHIUM CARBONATE 600 MG CAPSULE PO SCH ×2 (08:26→16:45)
[2022-12-05 09:25] VITALS: BP 117/66; PULSE 64; RESP 17; TEMP 97.6
[2022-12-05 17:16] LABS: GLUCOMETER DEV NAME(LOC) 3E.C; GLUCOSE,POINT OF CARE 116 MG/DL (70-110)
[2022-12-05 17:26] LABS: GLUCOMETER DEV NAME(LOC) 3E.C; GLUCOSE,POINT OF CARE 132 MG/DL (70-110)
[2022-12-05] MEDS: ATORVASTATIN CALCIUM 40 MG TABLET PO SCH (20:50)
[2022-12-05] MEDS: HALOPERIDOL 10 MG TABLET PO SCH (20:50)
[2022-12-05 20:55] VITALS: BP 137/65; PULSE 70; RESP 18; TEMP 98.1
[2022-12-06] MEDS: MetFORMIN HCL 500 MG TABLET PO SCH ×2 (06:34→17:34)
[2022-12-06] MEDS: LEVOTHYROXINE SODIUM 75 MCG TABLET PO SCH (06:35)
[2022-12-06 07:21] LABS: GLUCOMETER DEV NAME(LOC) 3E.C; GLUCOSE,POINT OF CARE 109 MG/DL (70-110)
[2022-12-06] MEDS: BENZTROPINE MESYLATE 1 MG TABLET PO SCH ×2 (08:46→17:34)
[2022-12-06] MEDS: LITHIUM CARBONATE 600 MG CAPSULE PO SCH ×2 (08:46→17:34)
[2022-12-06] MEDS: LACTULOSE 20 GM/30 ML SOLUTION UDCUP PO SCH (08:46)
[2022-12-06] MEDS: MULTIVITAMINS WITH MINERALS, THERAPEUTIC TABLET PO SCH (08:46)
[2022-12-06 09:15] VITALS: BP 108/69; PULSE 61; RESP 18; TEMP 97.7
[2022-12-06 17:36] LABS: GLUCOMETER DEV NAME(LOC) 3E.C; GLUCOSE,POINT OF CARE 116 MG/DL (70-110)
[2022-12-06 20:34] VITALS: BP 117/62; PULSE 68; RESP 19; TEMP 97.8
[2022-12-06] MEDS: ATORVASTATIN CALCIUM 40 MG TABLET PO SCH (21:09)
[2022-12-06] MEDS: HALOPERIDOL 10 MG TABLET PO SCH (21:09)
[2022-12-07] MEDS: LEVOTHYROXINE SODIUM 75 MCG TABLET PO SCH (06:37)
[2022-12-07] MEDS: MetFORMIN HCL 500 MG TABLET PO SCH ×2 (06:37→16:32)
[2022-12-07 07:06] LABS: GLUCOMETER DEV NAME(LOC) 3E.C; GLUCOSE,POINT OF CARE 107 MG/DL (70-110)
[2022-12-07] MEDS: LITHIUM CARBONATE 600 MG CAPSULE PO SCH ×2 (09:08→16:30)
[2022-12-07] MEDS: BENZTROPINE MESYLATE 1 MG TABLET PO SCH ×2 (09:08→16:30)
[2022-12-07] MEDS: LACTULOSE 20 GM/30 ML SOLUTION UDCUP PO SCH (09:08)
[2022-12-07] MEDS: MULTIVITAMINS WITH MINERALS, THERAPEUTIC TABLET PO SCH (09:08)
[2022-12-07 09:41] VITALS: BP 113/67; PULSE 66; RESP 18; TEMP 97
[2022-12-07 16:36] LABS: GLUCOMETER DEV NAME(LOC) 3E.C; GLUCOSE,POINT OF CARE 134 MG/DL (70-110)
[2022-12-07] MEDS: HALOPERIDOL 10 MG TABLET PO SCH (20:16)
[2022-12-07] MEDS: ATORVASTATIN CALCIUM 40 MG TABLET PO SCH (20:16)
[2022-12-07 21:04] VITALS: BP 129/77; PULSE 72; RESP 18; TEMP 98.1
[2022-12-08 06:02] LABS: GLUCOMETER DEV NAME(LOC) 3E.C; GLUCOSE,POINT OF CARE 101 MG/DL (70-110)
[2022-12-08] MEDS: MetFORMIN HCL 500 MG TABLET PO SCH ×2 (06:37→16:25)
[2022-12-08] MEDS: LEVOTHYROXINE SODIUM 75 MCG TABLET PO SCH (06:37)
[2022-12-08 08:38] VITALS: BP 110/70; PULSE 71; RESP 18; TEMP 97.8
[2022-12-08] MEDS: LACTULOSE 20 GM/30 ML SOLUTION UDCUP PO SCH (09:00)
[2022-12-08] MEDS: MULTIVITAMINS WITH MINERALS, THERAPEUTIC TABLET PO SCH (09:00)
[2022-12-08] MEDS: BENZTROPINE MESYLATE 1 MG TABLET PO SCH ×2 (09:00→16:25)
[2022-12-08] MEDS: LITHIUM CARBONATE 600 MG CAPSULE PO SCH ×2 (09:01→16:25)
[2022-12-08 17:26] LABS: GLUCOMETER DEV NAME(LOC) 3E.C; GLUCOSE,POINT OF CARE 117 MG/DL (70-110)
[2022-12-08 20:19] VITALS: BP 133/67; PULSE 72; RESP 18; TEMP 97.7
[2022-12-08] MEDS: HALOPERIDOL 10 MG TABLET PO SCH (21:30)
[2022-12-08] MEDS: ATORVASTATIN CALCIUM 40 MG TABLET PO SCH (21:30)
[2022-12-09] MEDS: LEVOTHYROXINE SODIUM 75 MCG TABLET PO SCH (06:41)
[2022-12-09] MEDS: MetFORMIN HCL 500 MG TABLET PO SCH ×2 (06:41→17:01)
[2022-12-09 07:16] LABS: GLUCOMETER DEV NAME(LOC) 3E.C; GLUCOSE,POINT OF CARE 92 MG/DL (70-110)
[2022-12-09 08:00] VITALS: BP 118/60; PULSE 76; RESP 20; TEMP 98.6
[2022-12-09] MEDS: MULTIVITAMINS WITH MINERALS, THERAPEUTIC TABLET PO SCH (09:11)
[2022-12-09] MEDS: BENZTROPINE MESYLATE 1 MG TABLET PO SCH ×2 (09:12→17:01)
[2022-12-09] MEDS: LACTULOSE 20 GM/30 ML SOLUTION UDCUP PO SCH (09:12)
[2022-12-09] MEDS: LITHIUM CARBONATE 600 MG CAPSULE PO SCH ×2 (09:12→17:01)
[2022-12-09 16:51] LABS: GLUCOMETER DEV NAME(LOC) 3E.C; GLUCOSE,POINT OF CARE 171 MG/DL (70-110)
[2022-12-09] MEDS: INSULIN LISPRO 100 UNITS/ML SQ PRN (17:01)
[2022-12-09] MEDS: HALOPERIDOL 10 MG TABLET PO SCH (20:33)
[2022-12-09] MEDS: ATORVASTATIN CALCIUM 40 MG TABLET PO SCH (20:33)
[2022-12-09 22:13] VITALS: BP 133/73; PULSE 76; RESP 18; TEMP 98.3
[2022-12-10] MEDS: MetFORMIN HCL 500 MG TABLET PO SCH ×2 (06:42→16:27)
[2022-12-10] MEDS: LEVOTHYROXINE SODIUM 75 MCG TABLET PO SCH (06:42)
[2022-12-10] MEDS: INSULIN LISPRO 100 UNITS/ML SQ PRN (06:43)
[2022-12-10 07:11] LABS: GLUCOMETER DEV NAME(LOC) 3E.C; GLUCOSE,POINT OF CARE 132 MG/DL (70-110)
[2022-12-10 09:50] VITALS: BP 133/59; PULSE 64; RESP 18; TEMP 97.5
[2022-12-10] MEDS: LACTULOSE 20 GM/30 ML SOLUTION UDCUP PO SCH (10:20)
[2022-12-10] MEDS: BENZTROPINE MESYLATE 1 MG TABLET PO SCH ×2 (10:20→16:27)
[2022-12-10] MEDS: LITHIUM CARBONATE 600 MG CAPSULE PO SCH ×2 (10:20→16:27)
[2022-12-10] MEDS: MULTIVITAMINS WITH MINERALS, THERAPEUTIC TABLET PO SCH (10:20)
[2022-12-10 17:01] LABS: GLUCOMETER DEV NAME(LOC) 3E.C; GLUCOSE,POINT OF CARE 161 MG/DL (70-110)
[2022-12-10 20:22] VITALS: BP 118/66; PULSE 64; RESP 18; TEMP 97.8
[2022-12-10] MEDS: ATORVASTATIN CALCIUM 40 MG TABLET PO SCH (20:55)
[2022-12-10] MEDS: HALOPERIDOL 10 MG TABLET PO SCH (20:55)
[2022-12-11 05:41] LABS: GLUCOMETER DEV NAME(LOC) 3E.C; GLUCOSE,POINT OF CARE 90 MG/DL (70-110)
[2022-12-11 06:26] LABS: GLUCOMETER DEV NAME(LOC) 3E.C; GLUCOSE,POINT OF CARE 105 MG/DL (70-110)
[2022-12-11] MEDS: INSULIN LISPRO 100 UNITS/ML SQ PRN (06:37)
[2022-12-11] MEDS: LEVOTHYROXINE SODIUM 75 MCG TABLET PO SCH (06:41)
[2022-12-11] MEDS: MetFORMIN HCL 500 MG TABLET PO SCH ×2 (06:41→16:28)
[2022-12-11 09:39] VITALS: BP 123/53; PULSE 65; RESP 18; TEMP 97.2
[2022-12-11] MEDS: BENZTROPINE MESYLATE 1 MG TABLET PO SCH ×2 (10:04→16:29)
[2022-12-11] MEDS: MULTIVITAMINS WITH MINERALS, THERAPEUTIC TABLET PO SCH (10:05)
[2022-12-11] MEDS: LACTULOSE 20 GM/30 ML SOLUTION UDCUP PO SCH (10:06)
[2022-12-11] MEDS: LITHIUM CARBONATE 600 MG CAPSULE PO SCH ×2 (10:06→16:28)
[2022-12-11 16:51] LABS: GLUCOMETER DEV NAME(LOC) 3E.C; GLUCOSE,POINT OF CARE 112 MG/DL (70-110)
[2022-12-11 20:22] VITALS: BP 119/78; PULSE 68; RESP 19; TEMP 98
[2022-12-11] MEDS: HALOPERIDOL 10 MG TABLET PO SCH (20:51)
[2022-12-11] MEDS: ATORVASTATIN CALCIUM 40 MG TABLET PO SCH (20:51)
[2022-12-12 06:36] LABS: GLUCOMETER DEV NAME(LOC) 3E.C; GLUCOSE,POINT OF CARE 104 MG/DL (70-110)
[2022-12-12] MEDS: INSULIN LISPRO 100 UNITS/ML SQ PRN (06:41)
[2022-12-12] MEDS: LEVOTHYROXINE SODIUM 75 MCG TABLET PO SCH (07:04)
[2022-12-12] MEDS: MetFORMIN HCL 500 MG TABLET PO SCH ×2 (07:04→16:22)
[2022-12-12] MEDS: BENZTROPINE MESYLATE 1 MG TABLET PO SCH ×2 (08:43→16:21)
[2022-12-12] MEDS: LITHIUM CARBONATE 600 MG CAPSULE PO SCH ×2 (08:43→16:22)
[2022-12-12] MEDS: LACTULOSE 20 GM/30 ML SOLUTION UDCUP PO SCH (08:43)
[2022-12-12] MEDS: MULTIVITAMINS WITH MINERALS, THERAPEUTIC TABLET PO SCH (08:43)
[2022-12-12 09:29] VITALS: BP 110/64; PULSE 57; RESP 18; TEMP 97.5
[2022-12-12 16:47] LABS: GLUCOMETER DEV NAME(LOC) 3E.C; GLUCOSE,POINT OF CARE 106 MG/DL (70-110)
[2022-12-12] MEDS: ATORVASTATIN CALCIUM 40 MG TABLET PO SCH (20:53)
[2022-12-12] MEDS: HALOPERIDOL 10 MG TABLET PO SCH (20:53)
[2022-12-12 21:18] VITALS: BP 116/64; PULSE 14; RESP 16; TEMP 97.8
[2022-12-13 06:41] LABS: GLUCOMETER DEV NAME(LOC) 3E.C; GLUCOSE,POINT OF CARE 106 MG/DL (70-110)
[2022-12-13] MEDS: MetFORMIN HCL 500 MG TABLET PO SCH ×2 (06:41→16:38)
[2022-12-13] MEDS: LEVOTHYROXINE SODIUM 75 MCG TABLET PO SCH (06:41)
[2022-12-13] MEDS: INSULIN LISPRO 100 UNITS/ML SQ PRN ×2 (06:42→17:17)
[2022-12-13] MEDS: BENZTROPINE MESYLATE 1 MG TABLET PO SCH ×2 (09:07→16:38)
[2022-12-13] MEDS: MULTIVITAMINS WITH MINERALS, THERAPEUTIC TABLET PO SCH (09:07)
[2022-12-13] MEDS: LACTULOSE 20 GM/30 ML SOLUTION UDCUP PO SCH (09:07)
[2022-12-13] MEDS: LITHIUM CARBONATE 600 MG CAPSULE PO SCH ×2 (09:07→16:38)
[2022-12-13 09:56] VITALS: BP 109/63; PULSE 67; RESP 18; TEMP 96.7
[2022-12-13 16:42] LABS: GLUCOMETER DEV NAME(LOC) 3E.C; GLUCOSE,POINT OF CARE 152 MG/DL (70-110)
[2022-12-13] MEDS: HALOPERIDOL 10 MG TABLET PO SCH (20:49)
[2022-12-13] MEDS: ATORVASTATIN CALCIUM 40 MG TABLET PO SCH (20:49)
[2022-12-13 21:03] VITALS: BP 121/60; PULSE 65; RESP 18; TEMP 98.1
[2022-12-14 06:32] LABS: GLUCOMETER DEV NAME(LOC) 3E.C; GLUCOSE,POINT OF CARE 103 MG/DL (70-110)
[2022-12-14] MEDS: INSULIN LISPRO 100 UNITS/ML SQ PRN (06:35)
[2022-12-14] MEDS: LEVOTHYROXINE SODIUM 75 MCG TABLET PO SCH (06:39)
[2022-12-14] MEDS: MetFORMIN HCL 500 MG TABLET PO SCH ×2 (06:53→16:59)
[2022-12-14 08:00] VITALS: BP 97/60; PULSE 60; RESP 18; TEMP 97.4
[2022-12-14] MEDS: LITHIUM CARBONATE 600 MG CAPSULE PO SCH ×2 (10:07→16:59)
[2022-12-14] MEDS: BENZTROPINE MESYLATE 1 MG TABLET PO SCH ×2 (10:07→16:59)
[2022-12-14] MEDS: MULTIVITAMINS WITH MINERALS, THERAPEUTIC TABLET PO SCH (10:07)
[2022-12-14] MEDS: LACTULOSE 20 GM/30 ML SOLUTION UDCUP PO SCH (10:07)
[2022-12-14 17:17] LABS: GLUCOMETER DEV NAME(LOC) 3E.C; GLUCOSE,POINT OF CARE 103 MG/DL (70-110)
[2022-12-14] MEDS: HALOPERIDOL 10 MG TABLET PO SCH (20:44)
[2022-12-14] MEDS: ATORVASTATIN CALCIUM 40 MG TABLET PO SCH (20:44)
[2022-12-14 21:37] VITALS: BP 123/70; PULSE 68; RESP 18; TEMP 98.8
[2022-12-15 06:27] LABS: GLUCOMETER DEV NAME(LOC) 3E.C; GLUCOSE,POINT OF CARE 96 MG/DL (70-110)
[2022-12-15] MEDS: INSULIN LISPRO 100 UNITS/ML SQ PRN (06:32)
[2022-12-15] MEDS: LEVOTHYROXINE SODIUM 75 MCG TABLET PO SCH (06:32)
[2022-12-15] MEDS: MetFORMIN HCL 500 MG TABLET PO SCH ×2 (06:57→16:25)
[2022-12-15] MEDS: LACTULOSE 20 GM/30 ML SOLUTION UDCUP PO SCH (08:44)
[2022-12-15] MEDS: LITHIUM CARBONATE 600 MG CAPSULE PO SCH ×2 (08:44→16:23)
[2022-12-15] MEDS: BENZTROPINE MESYLATE 1 MG TABLET PO SCH ×2 (08:44→16:25)
[2022-12-15] MEDS: MULTIVITAMINS WITH MINERALS, THERAPEUTIC TABLET PO SCH (08:44)
[2022-12-15 09:18] VITALS: BP 112/68; PULSE 79; RESP 18; TEMP 97.6
[2022-12-15 16:31] LABS: GLUCOMETER DEV NAME(LOC) 3E.C; GLUCOSE,POINT OF CARE 126 MG/DL (70-110)
[2022-12-15 20:16] VITALS: BP 119/75; PULSE 75; RESP 18; TEMP 97.2
[2022-12-15 20:17] VITALS: BP 119/75; PULSE 75; RESP 18; TEMP 97.2
[2022-12-15] MEDS: HALOPERIDOL 10 MG TABLET PO SCH (21:12)
[2022-12-15] MEDS: ATORVASTATIN CALCIUM 40 MG TABLET PO SCH (21:12)
[2022-12-16] MEDS: INSULIN LISPRO 100 UNITS/ML SQ PRN (06:34)
[2022-12-16 06:41] LABS: GLUCOMETER DEV NAME(LOC) 3E.C; GLUCOSE,POINT OF CARE 103 MG/DL (70-110)
[2022-12-16] MEDS: MetFORMIN HCL 500 MG TABLET PO SCH ×2 (06:49→16:23)
[2022-12-16] MEDS: LEVOTHYROXINE SODIUM 75 MCG TABLET PO SCH (06:49)
[2022-12-16] MEDS: LITHIUM CARBONATE 600 MG CAPSULE PO SCH ×2 (08:19→16:23)
[2022-12-16] MEDS: BENZTROPINE MESYLATE 1 MG TABLET PO SCH ×2 (08:19→16:23)
[2022-12-16] MEDS: LACTULOSE 20 GM/30 ML SOLUTION UDCUP PO SCH (08:19)
[2022-12-16] MEDS: MULTIVITAMINS WITH MINERALS, THERAPEUTIC TABLET PO SCH (08:19)
[2022-12-16 09:05] VITALS: BP 131/64; PULSE 60; RESP 18; TEMP 97.7
[2022-12-16 16:37] LABS: GLUCOMETER DEV NAME(LOC) 3E.C; GLUCOSE,POINT OF CARE 134 MG/DL (70-110)
[2022-12-16] MEDS: HALOPERIDOL 10 MG TABLET PO SCH (21:08)
[2022-12-16] MEDS: ATORVASTATIN CALCIUM 40 MG TABLET PO SCH (21:08)
[2022-12-16 21:09] VITALS: BP 133/77; PULSE 62; RESP 18; TEMP 98.2
[2022-12-16] MEDS: ZOLPIDEM TARTRATE 10 MG TABLET PO PRN (23:42)
[2022-12-17] MEDS: INSULIN LISPRO 100 UNITS/ML SQ PRN ×2 (06:34→17:20)
[2022-12-17 06:41] LABS: GLUCOMETER DEV NAME(LOC) 3E.C; GLUCOSE,POINT OF CARE 104 MG/DL (70-110)
[2022-12-17] MEDS: MetFORMIN HCL 500 MG TABLET PO SCH ×2 (06:51→16:23)
[2022-12-17] MEDS: LEVOTHYROXINE SODIUM 75 MCG TABLET PO SCH (06:51)
[2022-12-17] MEDS: LITHIUM CARBONATE 600 MG CAPSULE PO SCH ×2 (08:07→16:22)
[2022-12-17] MEDS: LACTULOSE 20 GM/30 ML SOLUTION UDCUP PO SCH (08:07)
[2022-12-17] MEDS: BENZTROPINE MESYLATE 1 MG TABLET PO SCH ×2 (08:08→16:23)
[2022-12-17] MEDS: MULTIVITAMINS WITH MINERALS, THERAPEUTIC TABLET PO SCH (08:08)
[2022-12-17 09:07] VITALS: BP 104/63; PULSE 70; RESP 18; TEMP 96.9
[2022-12-17 16:38] LABS: GLUCOMETER DEV NAME(LOC) 3E.C; GLUCOSE,POINT OF CARE 173 MG/DL (70-110)
[2022-12-17] MEDS: ATORVASTATIN CALCIUM 40 MG TABLET PO SCH (20:23)
[2022-12-17] MEDS: HALOPERIDOL 10 MG TABLET PO SCH (20:23)
[2022-12-17 20:51] VITALS: BP 128/71; PULSE 62; RESP 18; TEMP 97.5
[2022-12-18 05:48] LABS: GLUCOMETER DEV NAME(LOC) 3E.C; GLUCOSE,POINT OF CARE 109 MG/DL (70-110)
[2022-12-18] MEDS: MetFORMIN HCL 500 MG TABLET PO SCH ×2 (06:33→16:18)
[2022-12-18] MEDS: LEVOTHYROXINE SODIUM 75 MCG TABLET PO SCH (06:34)
[2022-12-18] MEDS: LACTULOSE 20 GM/30 ML SOLUTION UDCUP PO SCH (08:18)
[2022-12-18] MEDS: LITHIUM CARBONATE 600 MG CAPSULE PO SCH ×2 (08:19→16:18)
[2022-12-18] MEDS: MULTIVITAMINS WITH MINERALS, THERAPEUTIC TABLET PO SCH (08:19)
[2022-12-18] MEDS: BENZTROPINE MESYLATE 1 MG TABLET PO SCH ×2 (08:19→16:18)
[2022-12-18 08:40] VITALS: BP 99/61; PULSE 66; RESP 16; TEMP 97.6
[2022-12-18 16:48] LABS: GLUCOMETER DEV NAME(LOC) 3E.C; GLUCOSE,POINT OF CARE 154 MG/DL (70-110)
[2022-12-18] MEDS: INSULIN LISPRO 100 UNITS/ML SQ PRN (18:03)
[2022-12-18] MEDS: ATORVASTATIN CALCIUM 40 MG TABLET PO SCH (21:04)
[2022-12-18] MEDS: HALOPERIDOL 10 MG TABLET PO SCH (21:04)
[2022-12-18 22:39] VITALS: BP 120/65; PULSE 62; RESP 18; TEMP 97.9
[2022-12-19] MEDS: INSULIN LISPRO 100 UNITS/ML SQ PRN (06:46)
[2022-12-19 06:48] LABS: GLUCOMETER DEV NAME(LOC) 3E.C; GLUCOSE,POINT OF CARE 106 MG/DL (70-110)
[2022-12-19] MEDS: LEVOTHYROXINE SODIUM 75 MCG TABLET PO SCH (06:50)
[2022-12-19] MEDS: MetFORMIN HCL 500 MG TABLET PO SCH ×2 (06:50→16:05)
[2022-12-19 08:04] VITALS: BP 102/55; PULSE 71; RESP 18; TEMP 97.3
[2022-12-19] MEDS: BENZTROPINE MESYLATE 1 MG TABLET PO SCH ×2 (09:00→16:05)
[2022-12-19] MEDS: MULTIVITAMINS WITH MINERALS, THERAPEUTIC TABLET PO SCH (09:00)
[2022-12-19] MEDS: LITHIUM CARBONATE 600 MG CAPSULE PO SCH ×2 (09:00→16:05)
[2022-12-19] MEDS: LACTULOSE 20 GM/30 ML SOLUTION UDCUP PO SCH (09:00)
[2022-12-19 12:00] LABS: COVID AG,FIA SOURCE NASAL SWAB
[2022-12-19] MEDS ORDERED: BENZ1TAB84 PO (15:12)
[2022-12-19] MEDS ORDERED: HALO10TA21 PO (15:14)
[2022-12-19] MEDS ORDERED: LITH300CRT PO (15:14)
[2022-12-19] MEDS ORDERED: MULT-1239 PO (15:15)
[2022-12-19 16:22] LABS: GLUCOMETER DEV NAME(LOC) 3E.C; GLUCOSE,POINT OF CARE 116 MG/DL (70-110)
== END 2022-12-19 17:39 | DRG 885 ==
LOC: EMS 21:30 → 3EI 08-20 16:20 → 3EC 08-22 19:00 → 3EI 09-01 23:23 → 3EX 09-18 16:01 → 3EI 09-19 18:29
PROVIDERS: ADMIT Psychiatry & Neurology Psychiatry; ATTEND Psychiatry & Neurology Psychiatry
DX: F25.9 Schizoaffective disorder, unspecified (principal); R45.851 Suicidal ideations; E66.9 Obesity, unspecified; Z68.35 Body mass index [BMI] 35.0-35.9, adult; J44.9 Chronic obstructive pulmonary disease, unspecified; E11.9 Type 2 diabetes mellitus without complications; E78.00 Pure hypercholesterolemia, unspecified; G47.33 Obstructive sleep apnea (adult) (pediatric); I10 Essential (primary) hypertension; K74.60 Unspecified cirrhosis of liver; F41.9 Anxiety disorder, unspecified; E03.9 Hypothyroidism, unspecified; Z20.822 Contact with and (suspected) exposure to COVID-19; K59.00 Constipation, unspecified; R45.850 Homicidal ideations; Z59.00 Homelessness unspecified; Z87.891 Personal history of nicotine dependence; Z88.8 Allergy status to other drugs, medicaments and biological substances
CPT/HCPCS: 80053; 80178; 80307; 81003; 82962; 83036; 83735; 84100; 85025; 87081; 97116; 97162; 99285; G0378; G0480; J1200; J1630; J2060; J7050; Q9967

== ENCOUNTER 2023-11-16 23:46 | Emergency (ER) | payer OTHER ==
[~2023-11-16] VITALS: Ht 172.7 cm; Wt 108.0 kg
[~2023-11-16 23:46] MED LIST changes: +ARIP882S2 IM; +INSLAN SQ; -LACT10SO10 PO; -LEVO50 PO; +LEVO75 PO; -LISI-893 PO; +LITH600C5 PO; +MULT-1303 PO
[2023-11-17 00:01] VITALS: TEMP 98.2
[2023-11-17 00:26] LABS: GLUCOMETER DEV NAME(LOC) ERT.5; GLUCOSE,POINT OF CARE 134 MG/DL (70-110)
[2023-11-17 00:43] VITALS: BP 128/67; PULSE 75; RESP 20
[2023-11-17 00:53] LABS: BASOPHILS % (AUTO) 0.8 % (0.0-2.0); HEMATOCRIT 38.6 % (41-53); HEMOGLOBIN 13.1 g/dL (13.5-17.5); LYMPHOCYTES # (AUTO) 1.4 K/uL (1.0-4.8); LYMPHOCYTES % (AUTO) 17.7 % (22.0-44.0); MEAN CORPUSCULAR HEMOGLOBIN 31.7 pg (26.0-34.0); MEAN CORPUSCULAR HGB CONC 33.9 G/dL (31.0-37.0); MEAN CORPUSCULAR VOLUME 93 fL (80-100); MONOCYTES # (AUTO) 0.7 K/uL (0.1-1.0); MONOCYTES % (AUTO) 9.1 % (2.0-9.0); NEUTROPHILS # (AUTO) 5.5 K/uL (1.8-7.7); NEUTROPHILS % (AUTO) 68.4 % (40.0-70.0); PLATELET COUNT (AUTO) 133 K/uL (150-450); RED BLOOD CELL COUNT(AUTO) 4.13 MIL/uL (4.50-5.90); RED CELL DISTRIBUTION WIDTH 13.3 % (11.5-14.5); WHITE BLOOD COUNT (AUTO) 8.1 K/uL (4.5-11.0)
[2023-11-17 01:04] LABS: ANION GAP 9 mmol/L (8-16); CALCIUM, TOTAL 9.9 mg/dL (8.8-10.5); CARBON DIOXIDE 28 mmol/L (22-29); CHLORIDE 105 mmol/L (98-107); CREATININE 0.87 mg/dL (0.60-1.30); GLOMERULAR FILTR. RATE CALC > 60 mL/min (>60); GLUCOSE,RANDOM 139 mg/dL (70-110); POTASSIUM 4.3 mmol/L (3.5-5.1); SODIUM SERUM 142 mmol/L (136-145); UREA NITROGEN, BLOOD 12 mg/dL (7-18)
[2023-11-17 01:12] LABS: ALCOHOL, BLOOD (SERUM) < 3 mg/dL (0-10)
[2023-11-17] MEDS: DiphenhydrAMINE HCL 50 MG CAPSULE PO ONE (02:37)
[2023-11-17 03:14] LABS: ALCOHOL, URINE DRUG SCREEN NEGATIVE (NEGATIVE); AMPHET/METH SCREEN,URINE NEGATIVE (NEGATIVE); BARBITURATE SCREEN, URINE NEGATIVE (NEGATIVE); BENZODIAZEPINES SCREEN,URINE NEGATIVE (NEGATIVE); CANNABINOID SCREEN,URINE NEGATIVE (NEGATIVE); COCAINE SCREEN,URINE NEGATIVE (NEGATIVE); METHADONE SCREEN, URINE NEGATIVE (NEGATIVE); OPIATE SCREEN,URINE NEGATIVE (NEGATIVE); PHENCYCLIDINE SCREEN,URINE NEGATIVE (NEGATIVE)
[2023-11-17 03:25] LABS: PH,URINE DRUG SCREEN 6.5 (5.0-8.0)
[2023-11-17 05:04] LABS: COVID AG,FIA SOURCE NASAL SWAB
[2023-11-17 05:21] LABS: SARS-COV2 (COVID) ANTIGEN,FIA Negative (Negative)
== END 2023-11-17 10:09 | disposition home or self-care (01) ==
LOC: EMS 11-17 00:06
DX: F20.0 Paranoid schizophrenia (principal); E11.9 Type 2 diabetes mellitus without complications; E78.00 Pure hypercholesterolemia, unspecified; I10 Essential (primary) hypertension; F41.9 Anxiety disorder, unspecified; F31.9 Bipolar disorder, unspecified; J44.9 Chronic obstructive pulmonary disease, unspecified; Z87.891 Personal history of nicotine dependence; Z20.822 Contact with and (suspected) exposure to COVID-19
CPT/HCPCS: 99283; 87426; 80048; 82962; 85025; 36415; 80307; G0480

== ENCOUNTER 2023-11-18 00:14 | Inpatient (IN) | payer MEDICARE, MEDICAID ==
[~2023-11-18] VITALS: Ht 172.7 cm; Wt 108.3 kg
[2023-11-18] MEDS ORDERED: LORazepam 2 MG TABLET PO PRN (05:15)
[2023-11-18] MEDS ORDERED: HALOPERIDOL 5 MG TABLET PO PRN (05:15)
[2023-11-18 15:51] VITALS: BP 125/68; PULSE 65; RESP 18; TEMP 97.5; O2SAT 98
[2023-11-18] MEDS ORDERED: DEXTROSE 50%-WATER 25 GM/50 ML SYRINGE IVP PRN (19:00)
[2023-11-18 20:12] VITALS: BP 115/65; PULSE 73; RESP 18; TEMP 97.8
[2023-11-18 20:18] VITALS: BP 115/65; PULSE 73; RESP 18; TEMP 97.8
[2023-11-18] MEDS: ATORVASTATIN CALCIUM 40 MG TABLET PO SCH (21:20)
[2023-11-19] MEDS: LEVOTHYROXINE SODIUM 75 MCG TABLET PO SCH (07:01)
[2023-11-19 08:31] VITALS: BP 113/64; PULSE 73; RESP 18; TEMP 97.9; O2SAT 96
[2023-11-19] MEDS ORDERED: ALBUTEROL SULFATE HFA 90 MCG/PUFF 8 GM INHALER IH PRN (10:00)
[2023-11-19] MEDS ORDERED: DOCUSATE SODIUM 100 MG CAPSULE PO PRN (10:00)
[2023-11-19] MEDS ORDERED: NICOTINE 14 MG/24 HOUR PATCH TD PRN (10:00)
[2023-11-19] MEDS ORDERED: ONDANSETRON HCL 4 MG TABLET PO PRN (10:00)
[2023-11-19] MEDS ORDERED: LOPERAMIDE HCL 2 MG CAPSULE PO PRN (10:00)
[2023-11-19] MEDS ORDERED: CloNIDine HCL 0.1 MG TABLET PO PRN (10:00)
[2023-11-19] MEDS ORDERED: PETROLATUM,WHITE 28 GM JELLY TP PRN (10:00)
[2023-11-19] MEDS ORDERED: ACETAMINOPHEN 325 MG TABLET PO PRN (10:00)
[2023-11-19] MEDS ORDERED: GuaiFENesin/D-METHORPHAN [SUGAR-FREE] 200-20MG/10 ML SYRUP UDCUP PO PRN (10:00)
[2023-11-19] MEDS ORDERED: MAGNESIUM HYDROXIDE SUSPENSION 30 ML UDCUP PO PRN (10:00)
[2023-11-19] MEDS ORDERED: MAG HYDROX/ALUMINUM HYD/SIMETH ES 30 ML SUSPENSION UDCUP PO PRN (10:00)
[2023-11-19 10:10] LABS: GLUCOMETER DEV NAME(LOC) 3EX.2; GLUCOSE,POINT OF CARE 288 MG/DL (70-110)
[2023-11-19] MEDS: INSULIN GLARGINE,HUM.REC.ANLOG 100 UNITS/ML SQ SCH (10:11)
[2023-11-19] MEDS: DOCUSATE SODIUM 100 MG CAPSULE PO SCH (10:13)
[2023-11-19] MEDS: INSULIN LISPRO 100 UNITS/ML SQ PRN (12:13)
[2023-11-19 13:31] LABS: GLUCOMETER DEV NAME(LOC) 3EX.2; GLUCOSE,POINT OF CARE 236 MG/DL (70-110)
[2023-11-19 15:57] VITALS: BP 118/74; PULSE 74; RESP 18; TEMP 97.6
[2023-11-19] MEDS: IBUPROFEN 400 MG TABLET PO PRN (15:57)
[2023-11-19] MEDS: LITHIUM CARBONATE 600 MG CAPSULE PO SCH (16:04)
[2023-11-19 16:57] VITALS: BP 122/76; PULSE 76; RESP 19; TEMP 97.4
[2023-11-19 17:11] LABS: GLUCOMETER DEV NAME(LOC) 3EX.2; GLUCOSE,POINT OF CARE 326 MG/DL (70-110)
[2023-11-19 20:50] LABS: GLUCOMETER DEV NAME(LOC) 3EX.2; GLUCOSE,POINT OF CARE 400 MG/DL (70-110)
[2023-11-19 21:11] VITALS: BP 124/66; PULSE 76; RESP 18; TEMP 97.4
[2023-11-19] MEDS: INSULIN LISPRO 100 UNITS/ML SQ ONE (21:26)
[2023-11-19] MEDS: ZOLPIDEM TARTRATE 10 MG TABLET PO PRN (23:40)
[2023-11-20 06:26] LABS: GLUCOMETER DEV NAME(LOC) 3EX.2; GLUCOSE,POINT OF CARE 255 MG/DL (70-110)
[2023-11-20] MEDS: ARIPiprazole 10 MG TABLET PO SCH (09:03)
[2023-11-20 09:21] LABS: HEMOGLOBIN A1C 7.8 % (3.8-5.6)
[2023-11-20 09:54] LABS: THYROID STIMULATING HORMONE 0.23 uIU/mL (0.36-3.74)
[2023-11-20 11:05] VITALS: BP 117/56; PULSE 71; RESP 18; TEMP 97.5
[2023-11-20 11:55] LABS: GLUCOMETER DEV NAME(LOC) 3EX.2; GLUCOSE,POINT OF CARE 255 MG/DL (70-110)
[2023-11-20 12:47] VITALS: BP 119/64; PULSE 73; RESP 18
[2023-11-20 13:50] VITALS: RESP 18
[2023-11-20 15:42] VITALS: RESP 18
[2023-11-20 17:35] LABS: GLUCOMETER DEV NAME(LOC) 3EX.2; GLUCOSE,POINT OF CARE 305 MG/DL (70-110)
[2023-11-20 20:11] LABS: GLUCOMETER DEV NAME(LOC) 3EX.2; GLUCOSE,POINT OF CARE 389 MG/DL (70-110)
[2023-11-20 20:42] VITALS: BP 130/68; PULSE 76; RESP 18; TEMP 97.8; O2SAT 97
[2023-11-21 00:25] VITALS: BP 131/73; PULSE 77; RESP 18; TEMP 97.5; O2SAT 95
[2023-11-21 06:05] LABS: GLUCOMETER DEV NAME(LOC) 3EX.2; GLUCOSE,POINT OF CARE 186 MG/DL (70-110)
[2023-11-21 10:47] VITALS: BP 112/61; PULSE 80; RESP 19; TEMP 98.3; O2SAT 96
[2023-11-21 12:00] LABS: GLUCOMETER DEV NAME(LOC) 3EX.2; GLUCOSE,POINT OF CARE 364 MG/DL (70-110)
[2023-11-21 17:45] LABS: GLUCOMETER DEV NAME(LOC) 3EX.2; GLUCOSE,POINT OF CARE 340 MG/DL (70-110)
[2023-11-21 20:26] LABS: GLUCOMETER DEV NAME(LOC) 3EX.2; GLUCOSE,POINT OF CARE 309 MG/DL (70-110)
[2023-11-21 21:28] VITALS: BP 116/61; PULSE 74; RESP 18; TEMP 98.9; O2SAT 97
[2023-11-21 23:15] VITALS: PULSE 82; RESP 18; O2SAT 98
[2023-11-22 01:05] VITALS: PULSE 78; RESP 18; O2SAT 97
[2023-11-22 04:00] VITALS: PULSE 72; RESP 18; O2SAT 94
[2023-11-22 05:51] LABS: GLUCOMETER DEV NAME(LOC) 3EX.2; GLUCOSE,POINT OF CARE 214 MG/DL (70-110)
[2023-11-22 11:56] LABS: GLUCOMETER DEV NAME(LOC) 3EX.2; GLUCOSE,POINT OF CARE 291 MG/DL (70-110)
[2023-11-22 12:17] VITALS: BP 106/65; PULSE 71; RESP 18; TEMP 98.5
[2023-11-22 16:10] LABS: ANION GAP 7 mmol/L (8-16); CALCIUM, TOTAL 9.1 mg/dL (8.8-10.5); CARBON DIOXIDE 28 mmol/L (22-29); CHLORIDE 102 mmol/L (98-107); CREATININE 0.88 mg/dL (0.60-1.30); GLOMERULAR FILTR. RATE CALC > 60 mL/min (>60); GLUCOSE,RANDOM 356 mg/dL (70-110); POTASSIUM 3.9 mmol/L (3.5-5.1); SODIUM SERUM 137 mmol/L (136-145); UREA NITROGEN, BLOOD 12 mg/dL (7-18)
[2023-11-22 17:45] LABS: GLUCOMETER DEV NAME(LOC) 3EX.2; GLUCOSE,POINT OF CARE 287 MG/DL (70-110)
[2023-11-22 20:45] VITALS: BP 140/81; PULSE 73; RESP 18; TEMP 98.9; O2SAT 94
[2023-11-22 21:08] VITALS: BP 140/81; PULSE 73; RESP 18; TEMP 98.9; O2SAT 94
[2023-11-22 21:26] LABS: GLUCOMETER DEV NAME(LOC) 3EX.2; GLUCOSE,POINT OF CARE 346 MG/DL (70-110)
[2023-11-22 21:48] VITALS: RESP 18
[2023-11-23 07:15] LABS: GLUCOMETER DEV NAME(LOC) 3EX.2; GLUCOSE,POINT OF CARE 182 MG/DL (70-110)
[2023-11-23 07:47] LABS: BASOPHILS % (AUTO) 0.6 % (0.0-2.0); HEMATOCRIT 36.7 % (41-53); HEMOGLOBIN 12.5 g/dL (13.5-17.5); LYMPHOCYTES % (AUTO) 15.3 % (22.0-44.0); MEAN CORPUSCULAR HEMOGLOBIN 31.8 pg (26.0-34.0); MEAN CORPUSCULAR VOLUME 94 fL (80-100); MONOCYTES # (AUTO) 0.6 K/uL (0.1-1.0); MONOCYTES % (AUTO) 8.9 % (2.0-9.0); NEUTROPHILS # (AUTO) 4.6 K/uL (1.8-7.7); NEUTROPHILS % (AUTO) 69.2 % (40.0-70.0); PLATELET COUNT (AUTO) 122 K/uL (150-450); RED BLOOD CELL COUNT(AUTO) 3.92 MIL/uL (4.50-5.90); RED CELL DISTRIBUTION WIDTH 13.4 % (11.5-14.5); WHITE BLOOD COUNT (AUTO) 6.6 K/uL (4.5-11.0)
[2023-11-23] MEDS: INSULIN GLARGINE,HUM.REC.ANLOG 100 UNITS/ML SQ SCH (08:47)
[2023-11-23 09:57] VITALS: BP 116/66; PULSE 73; RESP 17; TEMP 98.4; O2SAT 98
[2023-11-23 14:41] LABS: GLUCOMETER DEV NAME(LOC) 3EX.2; GLUCOSE,POINT OF CARE 282 MG/DL (70-110)
[2023-11-23 17:00] LABS: GLUCOMETER DEV NAME(LOC) 3E.I 2; GLUCOSE,POINT OF CARE 343 MG/DL (70-110)
[2023-11-23 20:36] LABS: GLUCOMETER DEV NAME(LOC) 3EX.2; GLUCOSE,POINT OF CARE 284 MG/DL (70-110)
[2023-11-23 21:03] VITALS: BP 119/63; PULSE 71; RESP 18; TEMP 97.6; O2SAT 96
[2023-11-24 05:50] LABS: GLUCOMETER DEV NAME(LOC) 3EX.2; GLUCOSE,POINT OF CARE 225 MG/DL (70-110)
[2023-11-24 09:41] VITALS: BP 113/59; PULSE 81; RESP 17; TEMP 97.2
[2023-11-24 12:15] LABS: GLUCOMETER DEV NAME(LOC) 3EX.2; GLUCOSE,POINT OF CARE 243 MG/DL (70-110)
[2023-11-24 17:56] LABS: GLUCOMETER DEV NAME(LOC) 3EX.2; GLUCOSE,POINT OF CARE 240 MG/DL (70-110)
[2023-11-24 20:27] VITALS: BP 121/60; PULSE 70; RESP 18; TEMP 97.7; O2SAT 96
[2023-11-24 21:30] VITALS: RESP 18
[2023-11-24 21:30] LABS: GLUCOMETER DEV NAME(LOC) 3EX.2; GLUCOSE,POINT OF CARE 199 MG/DL (70-110)
[2023-11-24 22:13] VITALS: BP 121/50; PULSE 70; RESP 18; TEMP 97.7; O2SAT 96
[2023-11-25 06:31] LABS: GLUCOMETER DEV NAME(LOC) 3EX.2; GLUCOSE,POINT OF CARE 180 MG/DL (70-110)
[2023-11-25] MEDS: ARIPiprazole LAUROXIL ER SUSPENSION 882 MG/3.2 ML SYRINGE IM SCH (09:18)
[2023-11-25 09:40] VITALS: BP 118/60; PULSE 73; RESP 18; TEMP 97.6; O2SAT 97
[2023-11-25 11:21] LABS: GLUCOMETER DEV NAME(LOC) 3EX.2; GLUCOSE,POINT OF CARE 196 MG/DL (70-110)
[2023-11-25 17:35] LABS: GLUCOMETER DEV NAME(LOC) 3EX.2; GLUCOSE,POINT OF CARE 193 MG/DL (70-110)
[2023-11-25 21:23] VITALS: RESP 19
[2023-11-25 22:01] LABS: GLUCOMETER DEV NAME(LOC) 3EX.2; GLUCOSE,POINT OF CARE 310 MG/DL (70-110)
[2023-11-26 06:51] LABS: GLUCOMETER DEV NAME(LOC) 3EX.2; GLUCOSE,POINT OF CARE 165 MG/DL (70-110)
[2023-11-26 08:00] VITALS: BP 119/62; PULSE 68; RESP 18; TEMP 97.9; O2SAT 98
[2023-11-26 09:20] LABS: APPEARANCE,URINE CLEAR (CLEAR); BILIRUBIN,URINE NEGATIVE (NEGATIVE); COLOR,URINE LIGHT YELLOW (YELLOW); GLUCOSE, URINE (UA) 70-100 mg/dL (NEGATIVE); KETONES,URINE NEGATIVE (NEGATIVE); LEUKOCYTE ESTERASE ,URINE NEGATIVE (NEGATIVE); NITRATE,URINE NEGATIVE (NEGATIVE); OCCULT BLOOD,URINE NEGATIVE (NEGATIVE); PROTEIN,URINE NEGATIVE (NEGATIVE); SPECIFIC GRAVITIY, URINE 1.012 (1.003-1.030); UROBILINOGEN,URINE <=1.0 mg/dL (<=1.0)
[2023-11-26 09:31] LABS: ALCOHOL, URINE DRUG SCREEN NEGATIVE (NEGATIVE); AMPHET/METH SCREEN,URINE NEGATIVE (NEGATIVE); BARBITURATE SCREEN, URINE NEGATIVE (NEGATIVE); BENZODIAZEPINES SCREEN,URINE NEGATIVE (NEGATIVE); CANNABINOID SCREEN,URINE NEGATIVE (NEGATIVE); COCAINE SCREEN,URINE NEGATIVE (NEGATIVE); METHADONE SCREEN, URINE NEGATIVE (NEGATIVE); OPIATE SCREEN,URINE NEGATIVE (NEGATIVE); PHENCYCLIDINE SCREEN,URINE NEGATIVE (NEGATIVE)
[2023-11-26 09:32] LABS: RBC,URINE None Seen /HPF (0-2)
[2023-11-26 09:33] LABS: BACTERIA,URINE Rare /HPF (None Seen); WBC,URINE None Seen /HPF (0-5)
[2023-11-26 12:07] LABS: GLUCOMETER DEV NAME(LOC) 3EX.2; GLUCOSE,POINT OF CARE 201 MG/DL (70-110)
[2023-11-26 16:20] LABS: GLUCOMETER DEV NAME(LOC) 3EX.2; GLUCOSE,POINT OF CARE 184 MG/DL (70-110)
[2023-11-26 21:00] LABS: GLUCOMETER DEV NAME(LOC) 3EX.2; GLUCOSE,POINT OF CARE 193 MG/DL (70-110)
[2023-11-26 21:34] VITALS: BP 113/72; PULSE 73; RESP 18; TEMP 97.2; O2SAT 97
[2023-11-27 05:51] LABS: GLUCOMETER DEV NAME(LOC) 3EX.2; GLUCOSE,POINT OF CARE 178 MG/DL (70-110)
[2023-11-27 08:39] VITALS: BP 120/57; PULSE 67; RESP 18; TEMP 98.2; O2SAT 99
[2023-11-27] MEDS: INSULIN GLARGINE,HUM.REC.ANLOG 100 UNITS/ML SQ SCH (08:43)
[2023-11-27 11:51] LABS: GLUCOMETER DEV NAME(LOC) 3EX.2; GLUCOSE,POINT OF CARE 236 MG/DL (70-110)
[2023-11-27 16:46] LABS: GLUCOMETER DEV NAME(LOC) 3EX.2; GLUCOSE,POINT OF CARE 232 MG/DL (70-110)
[2023-11-27] MEDS ORDERED: INSLAN SQ (17:31)
[2023-11-27] MEDS ORDERED: ATOR40TA71 PO (17:31)
[2023-11-27] MEDS ORDERED: ARIP882S2 IM (17:31)
[2023-11-27] MEDS ORDERED: LITH600C PO (17:31)
[2023-11-27 20:40] LABS: GLUCOMETER DEV NAME(LOC) 3EX.2; GLUCOSE,POINT OF CARE 161 MG/DL (70-110)
[2023-11-27 21:29] VITALS: BP 151/70; PULSE 82; RESP 18; TEMP 98.1; O2SAT 97
[2023-11-28 06:26] LABS: GLUCOMETER DEV NAME(LOC) 3EX.2; GLUCOSE,POINT OF CARE 146 MG/DL (70-110)
[2023-11-28 09:17] VITALS: BP 127/72; PULSE 76; RESP 18; TEMP 97.5; O2SAT 97
[2023-11-28 11:51] LABS: GLUCOMETER DEV NAME(LOC) 3EX.2; GLUCOSE,POINT OF CARE 189 MG/DL (70-110)
== END 2023-11-28 16:35 | disposition home or self-care (01) | DRG 885 ==
LOC: 3EI 15:10
PROVIDERS: ADMIT Psychiatry & Neurology Psychiatry; ATTEND Psychiatry & Neurology Psychiatry
PROC: GZHZZZZ Group Psychotherapy (ICD-10-PCS; principal; 2023-11-20)
PROC: GZ51ZZZ Individual Psychotherapy, Behavioral (ICD-10-PCS; 2023-11-22)
PROC: GZ52ZZZ Individual Psychotherapy, Cognitive (ICD-10-PCS; 2023-11-22)
DX: F25.0 Schizoaffective disorder, bipolar type (principal); E11.9 Type 2 diabetes mellitus without complications; E03.9 Hypothyroidism, unspecified; G47.33 Obstructive sleep apnea (adult) (pediatric); I10 Essential (primary) hypertension; J44.9 Chronic obstructive pulmonary disease, unspecified; F41.9 Anxiety disorder, unspecified; F32.A Depression, unspecified; E78.5 Hyperlipidemia, unspecified
CPT/HCPCS: 80048; 80061; 80178; 80307; 81001; 82962; 83036; 84443; 85025; 87081; 94660; 97162; 97166; 97535; J1815; Q9967

== ENCOUNTER 2023-11-18 03:07 | Emergency (ER) | payer OTHER ==
[~2023-11-18] VITALS: Ht 172.7 cm; Wt 83.2 kg
[2023-11-18 03:13] VITALS: TEMP 97.9
[2023-11-18] MEDS ORDERED: IBUPROFEN 600 MG TABLET PO ONE (04:00)
[2023-11-18] MEDS ORDERED: AMOX TR/POT CLAV 875 MG/125 MG TABLET PO ONE (04:00)
[2023-11-18] MEDS: ACETAMINOPHEN 325 MG TABLET PO ONE (04:10)
[2023-11-18 08:40] LABS: GLUCOMETER DEV NAME(LOC) ER.7; GLUCOSE,POINT OF CARE 249 MG/DL (70-110)
[2023-11-18 11:56] LABS: GLUCOMETER DEV NAME(LOC) ER.7; GLUCOSE,POINT OF CARE 171 MG/DL (70-110)
[2023-11-18 13:25] VITALS: BP 128/72; PULSE 72; RESP 18
== END 2023-11-18 15:09 ==
LOC: EMS 03:09
DX: F20.0 Paranoid schizophrenia (principal); J44.9 Chronic obstructive pulmonary disease, unspecified; E11.9 Type 2 diabetes mellitus without complications; I10 Essential (primary) hypertension; Z88.4 Allergy status to anesthetic agent; Z79.4 Long term (current) use of insulin
CPT/HCPCS: 82962; 99285

== ENCOUNTER → 2024-03-24 | Emergency (ER) | payer OTHER ==
[~2024-03-24] VITALS: Ht 172.7 cm; Wt 102.7 kg
[~2024-03-24] MED LIST changes: +ARIP20TA63 PO; -ATOR40TA28 PO; +ATOR40TA71 PO; +DIPH50 PO; +LEVO100 PO; +LITH450T25 PO; +LITH600C PO; -LITH600C5 PO; -METF-1211 PO; -MULT-1303 PO; +OLAN15TA21 PO; +QUET200T PO
[2024-03-24 02:19] LABS: BASOPHILS % (AUTO) 0.6 % (0.0-2.0); EOSINOPHILS % (AUTO) 2.9 % (1.0-6.0); HEMATOCRIT 36.1 % (41-53); HEMOGLOBIN 11.8 g/dL (13.5-17.5); LYMPHOCYTES # (AUTO) 0.9 K/uL (1.0-4.8); LYMPHOCYTES % (AUTO) 15.3 % (22.0-44.0); MEAN CORPUSCULAR HEMOGLOBIN 30.9 pg (26.0-34.0); MEAN CORPUSCULAR HGB CONC 32.6 G/dL (31.0-37.0); MEAN CORPUSCULAR VOLUME 95 fL (80-100); MONOCYTES # (AUTO) 0.6 K/uL (0.1-1.0); MONOCYTES % (AUTO) 10.5 % (2.0-9.0); NEUTROPHILS # (AUTO) 4.2 K/uL (1.8-7.7); NEUTROPHILS % (AUTO) 70.7 % (40.0-70.0); PLATELET COUNT (AUTO) 133 K/uL (150-450); RED BLOOD CELL COUNT(AUTO) 3.81 MIL/uL (4.50-5.90); RED CELL DISTRIBUTION WIDTH 14.8 % (11.5-14.5)
[2024-03-24 02:33] LABS: COVID AG,FIA SOURCE NASAL SWAB
[2024-03-24 02:41] LABS: ANION GAP 8 mmol/L (8-16); CALCIUM, TOTAL 8.8 mg/dL (8.8-10.5); CARBON DIOXIDE 28 mmol/L (22-29); CHLORIDE 106 mmol/L (98-107); CREATININE 0.74 mg/dL (0.60-1.30); GLOMERULAR FILTR. RATE CALC > 60 mL/min (>60); GLUCOSE,RANDOM 132 mg/dL (70-110); POTASSIUM 3.7 mmol/L (3.5-5.1); SODIUM SERUM 142 mmol/L (136-145); UREA NITROGEN, BLOOD 13 mg/dL (7-18)
[2024-03-24 02:47] LABS: ALCOHOL, BLOOD (SERUM) < 3 mg/dL (0-10)
[2024-03-24 02:55] LABS: SARS-COV2 (COVID) ANTIGEN,FIA Negative (Negative)
[2024-03-24 04:21] VITALS: BP 113/65; PULSE 69; RESP 17; O2SAT 100
[2024-03-24] MEDS: QUEtiapine FUMARATE 100 MG TABLET PO ONE (04:21)
[2024-03-24] MEDS: DiphenhydrAMINE HCL 25 MG CAPSULE PO ONE (04:21)
== END | disposition still patient (30) ==
LOC: EMS 00:47
DX: F20.9 Schizophrenia, unspecified (principal); F10.20 Alcohol dependence, uncomplicated; F31.9 Bipolar disorder, unspecified; E11.9 Type 2 diabetes mellitus without complications; E03.9 Hypothyroidism, unspecified; E66.9 Obesity, unspecified; E78.00 Pure hypercholesterolemia, unspecified; G47.30 Sleep apnea, unspecified; I10 Essential (primary) hypertension; J44.9 Chronic obstructive pulmonary disease, unspecified; F41.9 Anxiety disorder, unspecified; Z87.891 Personal history of nicotine dependence; Z98.890 Other specified postprocedural states; Z79.4 Long term (current) use of insulin; Z20.822 Contact with and (suspected) exposure to COVID-19; Y90.9 Presence of alcohol in blood, level not specified
CPT/HCPCS: 99283; 87426; 80048; 82962; 85025; 36415; G0480

== ENCOUNTER 2024-07-29 07:28 | Inpatient (IN) | payer MEDICARE, MEDICAID ==
[~2024-07-29] VITALS: Ht 170.2 cm; Wt 102.5 kg
[~2024-07-29 07:28] MED LIST changes: -LEVO75 PO; -LITH600C PO
[2024-07-29] MEDS ORDERED: METF-446 PO (07:40)
[2024-07-29] MEDS ORDERED: METF-1211 PO (07:40)
[2024-07-29] MEDS ORDERED: LITH300T45 PO (07:40)
[2024-07-29] MEDS ORDERED: QUET300T19 PO (07:40)
[2024-07-29] MEDS ORDERED: SEMA0.258 SQ (07:40)
[2024-07-29] MEDS ORDERED: ATOR10TA69 PO (07:40)
[2024-07-29] MEDS ORDERED: ARIP400S3 IM (07:40)
[2024-07-29 08:08] LABS: BASOPHILS % (AUTO) 0.6 % (0.0-2.0); EOSINOPHILS % (AUTO) 3.8 % (1.0-6.0); HEMATOCRIT 38.9 % (41-53); HEMOGLOBIN 12.9 g/dL (13.5-17.5); LYMPHOCYTES % (AUTO) 17.4 % (22.0-44.0); MEAN CORPUSCULAR HEMOGLOBIN 31.3 pg (26.0-34.0); MEAN CORPUSCULAR HGB CONC 33.1 G/dL (31.0-37.0); MEAN CORPUSCULAR VOLUME 94 fL (80-100); MONOCYTES # (AUTO) 0.5 K/uL (0.1-1.0); MONOCYTES % (AUTO) 8.6 % (2.0-9.0); NEUTROPHILS % (AUTO) 69.6 % (40.0-70.0); PLATELET COUNT (AUTO) 127 K/uL (150-450); RED BLOOD CELL COUNT(AUTO) 4.13 MIL/uL (4.50-5.90); RED CELL DISTRIBUTION WIDTH 13.7 % (11.5-14.5); WHITE BLOOD COUNT (AUTO) 5.8 K/uL (4.5-11.0)
[2024-07-29 08:09] LABS: ANION GAP 10 mmol/L (8-16); CALCIUM, TOTAL 9.1 mg/dL (8.8-10.5); CARBON DIOXIDE 31 mmol/L (22-29); CHLORIDE 103 mmol/L (98-107); CREATININE 0.83 mg/dL (0.60-1.30); GLOMERULAR FILTR. RATE CALC > 60 mL/min (>60); GLUCOSE,RANDOM 110 mg/dL (70-110); POTASSIUM 3.4 mmol/L (3.5-5.1); SODIUM SERUM 143 mmol/L (136-145); UREA NITROGEN, BLOOD 10 mg/dL (7-18)
[2024-07-29 08:15] LABS: ALANINE AMINOTRANSFERASE 27 U/L (12-78); ALBUMIN 3.8 g/dL (3.4-5.0); ALKALINE PHOSPHATASE 113 U/L (46-116); ASPARTATE AMINOTRANSFERASE 18 U/L (15-37); BILIRUBIN,TOTAL 1.1 mg/dL (0.1-1.0); TOTAL PROTEIN, SERUM 8.5 g/dL (6.4-8.2)
[2024-07-29 08:33] LABS: COVID AG,FIA SOURCE NASAL SWAB
[2024-07-29 08:38] LABS: APPEARANCE,URINE CLEAR (CLEAR); BILIRUBIN,URINE NEGATIVE (NEGATIVE); COLOR,URINE LIGHT YELLOW (YELLOW); GLUCOSE, URINE (UA) NEGATIVE (NEGATIVE); KETONES,URINE NEGATIVE (NEGATIVE); LEUKOCYTE ESTERASE ,URINE NEGATIVE (NEGATIVE); NITRATE,URINE NEGATIVE (NEGATIVE); OCCULT BLOOD,URINE NEGATIVE (NEGATIVE); PH,URINE 6.5 (5.0-8.0); PH,URINE DRUG SCREEN 6.5 (5.0-8.0); PROTEIN,URINE NEGATIVE (NEGATIVE); SPECIFIC GRAVITIY, URINE 1.011 (1.003-1.030)
[2024-07-29 08:47] LABS: ALCOHOL, URINE DRUG SCREEN NEGATIVE (NEGATIVE); AMPHET/METH SCREEN,URINE NEGATIVE (NEGATIVE); BARBITURATE SCREEN, URINE NEGATIVE (NEGATIVE); BENZODIAZEPINES SCREEN,URINE NEGATIVE (NEGATIVE); CANNABINOID SCREEN,URINE NEGATIVE (NEGATIVE); COCAINE SCREEN,URINE NEGATIVE (NEGATIVE); METHADONE SCREEN, URINE NEGATIVE (NEGATIVE); OPIATE SCREEN,URINE NEGATIVE (NEGATIVE); PHENCYCLIDINE SCREEN,URINE NEGATIVE (NEGATIVE)
[2024-07-29 08:50] LABS: LITHIUM 0.54 mmol/L (0.60-1.20)
[2024-07-29] MEDS: POTASSIUM CHLORIDE 20 MEQ ER TABLET PO ONE (08:51)
[2024-07-29 08:52] LABS: ALCOHOL, BLOOD (SERUM) < 3 mg/dL (0-10)
[2024-07-29] MEDS ORDERED: ZOLPIDEM TARTRATE 10 MG TABLET PO PRN (09:00)
[2024-07-29] MEDS ORDERED: LORazepam 2 MG TABLET PO PRN (09:00)
[2024-07-29] MEDS ORDERED: HALOPERIDOL 5 MG TABLET PO PRN (09:00)
[2024-07-29] MEDS ORDERED: LOPERAMIDE HCL 2 MG CAPSULE PO PRN ×2 (09:00→22:30)
[2024-07-29] MEDS ORDERED: MAG HYDROX/ALUMINUM HYD/SIMETH ES 30 ML SUSPENSION UDCUP PO PRN ×2 (09:00→22:30)
[2024-07-29] MEDS ORDERED: MAGNESIUM HYDROXIDE SUSPENSION 30 ML UDCUP PO PRN ×2 (09:00→22:30)
[2024-07-29] MEDS ORDERED: ACETAMINOPHEN 325 MG TABLET PO PRN ×2 (09:00→22:30)
[2024-07-29 09:07] LABS: SARS-COV2 (COVID) ANTIGEN,FIA Negative (Negative)
[2024-07-29] MEDS ORDERED: PETROLATUM,WHITE 28 GM JELLY TP PRN (22:30)
[2024-07-29] MEDS ORDERED: IBUPROFEN 400 MG TABLET PO PRN (22:30)
[2024-07-29] MEDS ORDERED: GuaiFENesin/D-METHORPHAN [SUGAR-FREE] 200-20MG/10 ML SYRUP UDCUP PO PRN (22:30)
[2024-07-29] MEDS ORDERED: NICOTINE 14 MG/24 HOUR PATCH TD PRN (22:30)
[2024-07-29] MEDS ORDERED: CloNIDine HCL 0.1 MG TABLET PO PRN (22:30)
[2024-07-29] MEDS ORDERED: DOCUSATE SODIUM 100 MG CAPSULE PO PRN (22:30)
[2024-07-29] MEDS ORDERED: ONDANSETRON 4 MG TABLET PO PRN (22:30)
[2024-07-29] MEDS ORDERED: ALBUTEROL SULFATE HFA 90 MCG/PUFF 8 GM INHALER IH PRN (22:30)
[2024-07-29 22:56] LABS: GLUCOMETER DEV NAME(LOC) ER.7; GLUCOSE,POINT OF CARE 112 MG/DL (70-110)
[2024-07-29 22:58] VITALS: BP 150/58; PULSE 73; RESP 18; TEMP 97.5; O2SAT 100
[2024-07-29] MEDS ORDERED: DEXTROSE 50%-WATER 25 GM/50 ML SYRINGE IVP PRN (23:00)
[2024-07-29] MEDS ORDERED: GLUCAGON,HUMAN RECOMBINANT 1 MG VIAL IM PRN (23:15)
[2024-07-30 02:15] VITALS: PULSE 75; RESP 18; O2SAT 99
[2024-07-30 05:51] LABS: GLUCOMETER DEV NAME(LOC) 3EX.2; GLUCOSE,POINT OF CARE 124 MG/DL (70-110)
[2024-07-30] MEDS: MetFORMIN HCL 500 MG TABLET PO SCH (06:17)
[2024-07-30] MEDS: LEVOTHYROXINE SODIUM 100 MCG TABLET PO SCH (06:17)
[2024-07-30] MEDS: INSULIN LISPRO 100 UNITS/ML SQ PRN (06:38)
[2024-07-30 08:30] VITALS: BP 122/75; PULSE 78; RESP 18; TEMP 97.9; O2SAT 98
[2024-07-30 08:34] LABS: HEMOGLOBIN A1C 6.9 % (3.8-5.6)
[2024-07-30 08:38] LABS: THYROID STIMULATING HORMONE 0.04 uIU/mL (0.36-3.74)
[2024-07-30 09:06] LABS: CHOL/HDL RATIO 1.7 (4.2-7.3)
[2024-07-30 11:25] LABS: GLUCOMETER DEV NAME(LOC) 3E.C; GLUCOSE,POINT OF CARE 146 MG/DL (70-110)
[2024-07-30] MEDS: LITHIUM CARBONATE 300 MG ER TABLET PO SCH (17:17)
[2024-07-30 17:20] LABS: GLUCOMETER DEV NAME(LOC) 3E.C; GLUCOSE,POINT OF CARE 140 MG/DL (70-110)
[2024-07-30 20:00] LABS: GLUCOMETER DEV NAME(LOC) 3EX.2; GLUCOSE,POINT OF CARE 138 MG/DL (70-110)
[2024-07-30] MEDS: OLANZapine 7.5 MG TABLET PO SCH (20:32)
[2024-07-30] MEDS: TraZODone HCL 150 MG TABLET PO SCH (20:32)
[2024-07-30] MEDS: ATORVASTATIN CALCIUM 40 MG TABLET PO SCH (20:32)
[2024-07-30 21:45] VITALS: BP 113/72; PULSE 73; RESP 18; TEMP 97.5; O2SAT 99
[2024-07-31 06:41] LABS: GLUCOMETER DEV NAME(LOC) 3EX.2; GLUCOSE,POINT OF CARE 119 MG/DL (70-110)
[2024-07-31 09:00] VITALS: BP 143/84; PULSE 79; RESP 18; TEMP 97.4
[2024-07-31 11:51] LABS: GLUCOMETER DEV NAME(LOC) 3E.C; GLUCOSE,POINT OF CARE 103 MG/DL (70-110)
[2024-07-31 17:00] LABS: GLUCOMETER DEV NAME(LOC) 3E.C; GLUCOSE,POINT OF CARE 152 MG/DL (70-110)
[2024-07-31 20:15] LABS: GLUCOMETER DEV NAME(LOC) 3EX.2; GLUCOSE,POINT OF CARE 119 MG/DL (70-110)
[2024-07-31 21:42] VITALS: BP 132/71; PULSE 87; RESP 19; TEMP 97.9; O2SAT 98
[2024-08-01 06:55] LABS: GLUCOMETER DEV NAME(LOC) 3E.C; GLUCOSE,POINT OF CARE 120 MG/DL (70-110)
[2024-08-01 10:24] VITALS: BP 131/64; PULSE 80; RESP 18; TEMP 97.7; O2SAT 98
[2024-08-01 17:00] LABS: GLUCOMETER DEV NAME(LOC) 3EX.2; GLUCOSE,POINT OF CARE 104 MG/DL (70-110)
[2024-08-01 20:26] LABS: GLUCOMETER DEV NAME(LOC) 3E.C; GLUCOSE,POINT OF CARE 121 MG/DL (70-110)
[2024-08-01 21:28] VITALS: RESP 18
[2024-08-02 05:55] LABS: GLUCOMETER DEV NAME(LOC) 3E.C; GLUCOSE,POINT OF CARE 103 MG/DL (70-110)
[2024-08-02 08:00] VITALS: BP 118/55; PULSE 94; RESP 16; TEMP 98.1; O2SAT 100
[2024-08-02 11:45] LABS: GLUCOMETER DEV NAME(LOC) 3EX.2; GLUCOSE,POINT OF CARE 109 MG/DL (70-110)
[2024-08-02 16:55] LABS: GLUCOMETER DEV NAME(LOC) 3EX.2; GLUCOSE,POINT OF CARE 104 MG/DL (70-110)
[2024-08-02 20:30] LABS: GLUCOMETER DEV NAME(LOC) 3E.C; GLUCOSE,POINT OF CARE 104 MG/DL (70-110)
[2024-08-02 22:40] VITALS: BP 126/74; PULSE 78; RESP 18; TEMP 97; O2SAT 99
[2024-08-03 06:51] LABS: GLUCOMETER DEV NAME(LOC) 3E.C; GLUCOSE,POINT OF CARE 109 MG/DL (70-110)
[2024-08-03 09:00] VITALS: BP 152/70; PULSE 96; RESP 18; TEMP 97.5
[2024-08-03 11:45] LABS: GLUCOMETER DEV NAME(LOC) 3EX.2; GLUCOSE,POINT OF CARE 91 MG/DL (70-110)
[2024-08-03 16:41] LABS: GLUCOMETER DEV NAME(LOC) 3EX.2; GLUCOSE,POINT OF CARE 123 MG/DL (70-110)
[2024-08-03 21:00] VITALS: BP 136/84; PULSE 82; RESP 18; TEMP 98; O2SAT 95
[2024-08-04 06:56] LABS: GLUCOMETER DEV NAME(LOC) 3E.C; GLUCOSE,POINT OF CARE 106 MG/DL (70-110)
[2024-08-04 11:15] VITALS: BP 106/69; PULSE 67; RESP 18; TEMP 97.5; O2SAT 96
[2024-08-04 11:16] LABS: GLUCOMETER DEV NAME(LOC) 3EX.2; GLUCOSE,POINT OF CARE 110 MG/DL (70-110)
[2024-08-04 17:21] LABS: GLUCOMETER DEV NAME(LOC) 3EX.2; GLUCOSE,POINT OF CARE 154 MG/DL (70-110)
[2024-08-04 20:56] LABS: GLUCOMETER DEV NAME(LOC) 3E.C; GLUCOSE,POINT OF CARE 88 MG/DL (70-110)
[2024-08-04 22:53] VITALS: BP 120/62; PULSE 74; RESP 18; TEMP 98; O2SAT 100
[2024-08-05 06:31] LABS: GLUCOMETER DEV NAME(LOC) 3E.C; GLUCOSE,POINT OF CARE 102 MG/DL (70-110)
[2024-08-05 10:51] LABS: GLUCOMETER DEV NAME(LOC) 3EX.2; GLUCOSE,POINT OF CARE 95 MG/DL (70-110)
[2024-08-05 10:56] VITALS: BP 126/70; PULSE 76; RESP 17; TEMP 98; O2SAT 98
[2024-08-05] MEDS ORDERED: ARIP400S3 IM (13:46)
[2024-08-05] MEDS ORDERED: OLAN7.5T22 PO (13:46)
[2024-08-05] MEDS ORDERED: LEVO100 PO (13:46)
[2024-08-05] MEDS ORDERED: METF-1211 PO (13:46)
[2024-08-05] MEDS ORDERED: LITH300T45 PO (13:46)
[2024-08-05] MEDS ORDERED: TRAZ-283 PO (13:46)
[2024-08-05 17:21] LABS: GLUCOMETER DEV NAME(LOC) 3EX.2; GLUCOSE,POINT OF CARE 144 MG/DL (70-110)
[2024-08-05 20:00] VITALS: BP 138/89; PULSE 85; RESP 18; TEMP 98; O2SAT 98
[2024-08-05 21:51] LABS: GLUCOMETER DEV NAME(LOC) 3E.C; GLUCOSE,POINT OF CARE 107 MG/DL (70-110)
[2024-08-06 06:06] LABS: GLUCOMETER DEV NAME(LOC) 3E.C; GLUCOSE,POINT OF CARE 87 MG/DL (70-110)
[2024-08-06] MEDS: ARIPiprazole ER SUSPENSION 400 MG PRE-FILLED DUAL CHAMBER SYRINGE IM SCH (08:40)
[2024-08-06 09:59] VITALS: BP 113/67; PULSE 74; RESP 17; TEMP 97.2; O2SAT 97
[2024-08-06 12:10] LABS: GLUCOMETER DEV NAME(LOC) 3EX.2; GLUCOSE,POINT OF CARE 134 MG/DL (70-110)
[2024-08-06 16:16] LABS: GLUCOMETER DEV NAME(LOC) 3EX.2; GLUCOSE,POINT OF CARE 100 MG/DL (70-110)
== END 2024-08-06 19:10 | disposition home or self-care (01) | DRG 885 ==
LOC: EMS 07:30 → 3EX 21:43
PROVIDERS: ADMIT Psychiatry & Neurology Psychiatry; ATTEND Psychiatry & Neurology Psychiatry
PROC: GZHZZZZ Group Psychotherapy (ICD-10-PCS; principal; 2024-07-30)
PROC: GZ52ZZZ Individual Psychotherapy, Cognitive (ICD-10-PCS; 2024-07-30)
DX: F25.0 Schizoaffective disorder, bipolar type (principal); Z71.6 Tobacco abuse counseling; E11.9 Type 2 diabetes mellitus without complications; Z20.822 Contact with and (suspected) exposure to COVID-19; D64.9 Anemia, unspecified; E03.9 Hypothyroidism, unspecified; E66.9 Obesity, unspecified; E87.6 Hypokalemia; G47.00 Insomnia, unspecified; I10 Essential (primary) hypertension; E78.00 Pure hypercholesterolemia, unspecified; K74.60 Unspecified cirrhosis of liver; F41.9 Anxiety disorder, unspecified; G47.33 Obstructive sleep apnea (adult) (pediatric); J44.9 Chronic obstructive pulmonary disease, unspecified; Z79.899 Other long term (current) drug therapy; Z88.8 Allergy status to other drugs, medicaments and biological substances; Z68.35 Body mass index [BMI] 35.0-35.9, adult
CPT/HCPCS: 80048; 80061; 80076; 80178; 80307; 81003; 82962; 83036; 84132; 84443; 85025; 94660; 99285; G0378; G0480; J0401; 36415-L1; 36415-TC; Z7502; Z7610

== ENCOUNTER 2024-09-16 15:58 | Emergency (ER) | payer MEDICARE, OTHER ==
[~2024-09-16] VITALS: Ht 170.2 cm; Wt 104.5 kg
[~2024-09-16 15:58] MED LIST changes: -ARIP20TA63 PO; +ARIP400S3 IM; -ARIP882S2 IM; -DIPH50 PO; -INSLAN SQ; +LITH300T45 PO; -LITH450T25 PO; +METF-1211 PO; -OLAN15TA21 PO; +OLAN7.5T22 PO; -QUET200T PO; +TRAZ-283 PO
[2024-09-16 16:07] VITALS: TEMP 98.5
[2024-09-16 19:08] VITALS: BP 118/72; PULSE 68; RESP 16; O2SAT 99
== END 2024-09-16 21:23 | disposition home or self-care (01) ==
LOC: EMS 15:58
DX: F20.9 Schizophrenia, unspecified (principal); E11.9 Type 2 diabetes mellitus without complications; I10 Essential (primary) hypertension; J44.9 Chronic obstructive pulmonary disease, unspecified; E03.9 Hypothyroidism, unspecified; E78.00 Pure hypercholesterolemia, unspecified; F31.9 Bipolar disorder, unspecified; Z88.8 Allergy status to other drugs, medicaments and biological substances; Z79.84 Long term (current) use of oral hypoglycemic drugs; Z79.899 Other long term (current) drug therapy
CPT/HCPCS: 99281; Z7502

== ENCOUNTER 2024-11-15 01:33 | Inpatient (IN) | payer MEDICARE, MEDICAID ==
[~2024-11-15] VITALS: Ht 172.7 cm; Wt 108.4 kg
[~2024-11-15 01:33] MED LIST changes: +GLIP5TAB16 PO; +QUET300T2 PO; -TRAZ-283 PO
[2024-11-15 04:04] LABS: COVID AG,FIA SOURCE NASAL SWAB
[2024-11-15 04:33] LABS: SARS-COV2 (COVID) ANTIGEN,FIA Negative (Negative)
[2024-11-15 04:50] LABS: BASOPHILS % (AUTO) 0.5 % (0.0-2.0); EOSINOPHILS % (AUTO) 4.8 % (1.0-6.0); HEMATOCRIT 36.8 % (41-53); HEMOGLOBIN 12.2 g/dL (13.5-17.5); LYMPHOCYTES # (AUTO) 0.9 K/uL (1.0-4.8); LYMPHOCYTES % (AUTO) 16.5 % (22.0-44.0); MEAN CORPUSCULAR HEMOGLOBIN 30.6 pg (26.0-34.0); MEAN CORPUSCULAR HGB CONC 33.1 G/dL (31.0-37.0); MEAN CORPUSCULAR VOLUME 93 fL (80-100); MONOCYTES # (AUTO) 0.5 K/uL (0.1-1.0); MONOCYTES % (AUTO) 9.5 % (2.0-9.0); NEUTROPHILS # (AUTO) 3.8 K/uL (1.8-7.7); NEUTROPHILS % (AUTO) 68.7 % (40.0-70.0); PLATELET COUNT (AUTO) 115 K/uL (150-450); RED BLOOD CELL COUNT(AUTO) 3.98 MIL/uL (4.50-5.90); RED CELL DISTRIBUTION WIDTH 14.6 % (11.5-14.5); WHITE BLOOD COUNT (AUTO) 5.5 K/uL (4.5-11.0)
[2024-11-15 05:12] LABS: ANION GAP 6 mmol/L (8-16); CARBON DIOXIDE 30 mmol/L (22-29); CHLORIDE 103 mmol/L (98-107); CREATININE 0.79 mg/dL (0.60-1.30); GLOMERULAR FILTR. RATE CALC > 60 mL/min (>60); GLUCOSE,RANDOM 164 mg/dL (70-110); POTASSIUM 3.4 mmol/L (3.5-5.1); SODIUM SERUM 139 mmol/L (136-145); UREA NITROGEN, BLOOD 13 mg/dL (7-18)
[2024-11-15] MEDS ORDERED: ZOLPIDEM TARTRATE 10 MG TABLET PO PRN (05:45)
[2024-11-15] MEDS ORDERED: haloperidoL 5 MG TABLET PO PRN (05:45)
[2024-11-15] MEDS ORDERED: LORazepam 2 MG TABLET PO PRN (05:45)
[2024-11-15 09:16] LABS: APPEARANCE,URINE CLEAR (CLEAR); BILIRUBIN,URINE NEGATIVE (NEGATIVE); COLOR,URINE LIGHT YELLOW (YELLOW); GLUCOSE, URINE (UA) 150-200 mg/dL (NEGATIVE); KETONES,URINE NEGATIVE (NEGATIVE); LEUKOCYTE ESTERASE ,URINE NEGATIVE (NEGATIVE); NITRATE,URINE NEGATIVE (NEGATIVE); OCCULT BLOOD,URINE NEGATIVE (NEGATIVE); PH,URINE 6.5 (5.0-8.0); PH,URINE DRUG SCREEN 6.5 (5.0-8.0); PROTEIN,URINE NEGATIVE (NEGATIVE); SPECIFIC GRAVITIY, URINE 1.015 (1.003-1.030)
[2024-11-15 09:23] LABS: ALCOHOL, URINE DRUG SCREEN NEGATIVE (NEGATIVE); AMPHET/METH SCREEN,URINE NEGATIVE (NEGATIVE); BARBITURATE SCREEN, URINE NEGATIVE (NEGATIVE); BENZODIAZEPINES SCREEN,URINE NEGATIVE (NEGATIVE); CANNABINOID SCREEN,URINE NEGATIVE (NEGATIVE); COCAINE SCREEN,URINE NEGATIVE (NEGATIVE); METHADONE SCREEN, URINE NEGATIVE (NEGATIVE); OPIATE SCREEN,URINE NEGATIVE (NEGATIVE); PHENCYCLIDINE SCREEN,URINE NEGATIVE (NEGATIVE)
[2024-11-15 09:51] LABS: BACTERIA,URINE None Seen /HPF (None Seen); RBC,URINE None Seen /HPF (0-2); WBC,URINE None Seen /HPF (0-5)
[2024-11-15 09:56] VITALS: O2SAT 100
[2024-11-15 11:45] VITALS: BP 128/75; PULSE 75; RESP 16; TEMP 97.7; O2SAT 96
[2024-11-15] MEDS ORDERED: GLUCAGON,HUMAN RECOMBINANT 1 MG VIAL IM PRN (13:45)
[2024-11-15] MEDS ORDERED: TraZODone HCL 150 MG TABLET PO PRN (15:15)
[2024-11-15] MEDS: INSULIN LISPRO 100 UNITS/ML SQ PRN (15:28)
[2024-11-15] MEDS ORDERED: MAGNESIUM HYDROXIDE SUSPENSION 30 ML UDCUP PO PRN (15:30)
[2024-11-15] MEDS ORDERED: ACETAMINOPHEN 325 MG TABLET PO PRN (15:30)
[2024-11-15] MEDS ORDERED: GuaiFENesin/D-METHORPHAN [SUGAR-FREE] 200-20MG/10 ML SYRUP UDCUP PO PRN (15:30)
[2024-11-15] MEDS ORDERED: CloNIDine HCL 0.1 MG TABLET PO PRN (15:30)
[2024-11-15] MEDS ORDERED: ONDANSETRON 4 MG TABLET PO PRN (15:30)
[2024-11-15] MEDS ORDERED: MAG HYDROX/ALUMINUM HYD/SIMETH ES 30 ML SUSPENSION UDCUP PO PRN (15:30)
[2024-11-15] MEDS ORDERED: LOPERAMIDE HCL 2 MG CAPSULE PO PRN (15:30)
[2024-11-15] MEDS ORDERED: IBUPROFEN 400 MG TABLET PO PRN (15:30)
[2024-11-15] MEDS ORDERED: ALBUTEROL SULFATE HFA 90 MCG/PUFF 8 GM INHALER IH PRN (15:30)
[2024-11-15] MEDS ORDERED: PETROLATUM,WHITE 28 GM JELLY TP PRN (15:30)
[2024-11-15] MEDS ORDERED: NICOTINE 14 MG/24 HOUR PATCH TD PRN (15:30)
[2024-11-15] MEDS ORDERED: DOCUSATE SODIUM 100 MG CAPSULE PO PRN (15:30)
[2024-11-15] MEDS ORDERED: SEMA0.258 SQ (15:36)
[2024-11-15] MEDS ORDERED: METF-446 PO (15:36)
[2024-11-15] MEDS ORDERED: LEVO88TA7 PO (15:36)
[2024-11-15] MEDS ORDERED: INSULIN LISPRO 100 UNITS/ML SQ SCH (16:30)
[2024-11-15 16:45] LABS: GLUCOMETER DEV NAME(LOC) BV2X.3; GLUCOSE,POINT OF CARE 326 MG/DL (70-110)
[2024-11-15 16:45] LABS: GLUCOMETER DEV NAME(LOC) BV2X.3; GLUCOSE,POINT OF CARE 385 MG/DL (70-110)
[2024-11-15] MEDS ORDERED: MetFORMIN HCL 500 MG TABLET PO SCH (17:00)
[2024-11-15] MEDS: LITHIUM CARBONATE 600 MG CAPSULE PO SCH (17:04)
[2024-11-15] MEDS: MetFORMIN HCL 500 MG TABLET PO SCH (17:04)
[2024-11-15] MEDS: POTASSIUM CHLORIDE 20 MEQ ER TABLET PO ONE (19:02)
[2024-11-15 20:46] VITALS: BP 137/75; PULSE 61; RESP 17; TEMP 98.4; O2SAT 96
[2024-11-15] MEDS ORDERED: ATORVASTATIN CALCIUM 40 MG TABLET PO SCH (21:00)
[2024-11-15] MEDS: OLANZapine 7.5 MG TABLET PO SCH (21:04)
[2024-11-15] MEDS: ATORVASTATIN CALCIUM 40 MG TABLET PO SCH (21:04)
[2024-11-15] MEDS: QUEtiapine FUMARATE 300 MG TABLET PO SCH (21:05)
[2024-11-15] MEDS ORDERED: DEXTROSE 50%-WATER 25 GM/50 ML SYRINGE IVP PRN (22:30)
[2024-11-16 06:06] LABS: GLUCOMETER DEV NAME(LOC) 3E.I 2; GLUCOSE,POINT OF CARE 297 MG/DL (70-110)
[2024-11-16] MEDS ORDERED: LEVOTHYROXINE SODIUM 100 MCG TABLET PO SCH (06:30)
[2024-11-16] MEDS: GlipiZIDE 5 MG TABLET PO SCH (06:33)
[2024-11-16] MEDS: LEVOTHYROXINE SODIUM 100 MCG TABLET PO SCH (06:34)
[2024-11-16] MEDS: CHOLECALCIFEROL (VIT D3) 1,000 UNITS [25 MCG] TABLET PO SCH (08:24)
[2024-11-16 09:28] LABS: BASOPHILS % (AUTO) 0.7 % (0.0-2.0); EOSINOPHILS % (AUTO) 5.1 % (1.0-6.0); HEMATOCRIT 37.1 % (41-53); HEMOGLOBIN 12.5 g/dL (13.5-17.5); LYMPHOCYTES # (AUTO) 0.7 K/uL (1.0-4.8); LYMPHOCYTES % (AUTO) 14.4 % (22.0-44.0); MEAN CORPUSCULAR HEMOGLOBIN 31.4 pg (26.0-34.0); MEAN CORPUSCULAR HGB CONC 33.6 G/dL (31.0-37.0); MEAN CORPUSCULAR VOLUME 93 fL (80-100); MONOCYTES # (AUTO) 0.3 K/uL (0.1-1.0); MONOCYTES % (AUTO) 6.5 % (2.0-9.0); NEUTROPHILS # (AUTO) 3.4 K/uL (1.8-7.7); NEUTROPHILS % (AUTO) 73.3 % (40.0-70.0); PLATELET COUNT (AUTO) 99 K/uL (150-450); RED BLOOD CELL COUNT(AUTO) 3.98 MIL/uL (4.50-5.90); RED CELL DISTRIBUTION WIDTH 14.1 % (11.5-14.5); WHITE BLOOD COUNT (AUTO) 4.6 K/uL (4.5-11.0)
[2024-11-16 09:48] LABS: HEMOGLOBIN A1C 7.4 % (3.8-5.6)
[2024-11-16 09:49] VITALS: BP 100/67; PULSE 71; RESP 19; TEMP 98.7; O2SAT 100
[2024-11-16 09:52] LABS: ALANINE AMINOTRANSFERASE 28 U/L (12-78); ALBUMIN 3.5 g/dL (3.4-5.0); ALKALINE PHOSPHATASE 114 U/L (46-116); ANION GAP 9 mmol/L (8-16); ASPARTATE AMINOTRANSFERASE 15 U/L (15-37); BILIRUBIN,TOTAL 0.8 mg/dL (0.1-1.0); CALCIUM, TOTAL 9.1 mg/dL (8.8-10.5); CARBON DIOXIDE 28 mmol/L (22-29); CHLORIDE 103 mmol/L (98-107); CHOLESTEROL 100 mg/dL (131-200); CREATININE 0.87 mg/dL (0.60-1.30); GLOMERULAR FILTR. RATE CALC > 60 mL/min (>60); GLUCOSE,RANDOM 312 mg/dL (70-110); HDL CHOLESTEROL 48 mg/dL (40-60); POTASSIUM 3.9 mmol/L (3.5-5.1); SODIUM SERUM 140 mmol/L (136-145); TOTAL PROTEIN, SERUM 7.6 g/dL (6.4-8.2); TRIGLYCERIDES 120 mg/dL (15-150); UREA NITROGEN, BLOOD 12 mg/dL (7-18)
[2024-11-16 09:53] LABS: CHOL/HDL RATIO 2.1 (4.2-7.3); LDL CHOL (CALC.) 28 mg/dL (0-130); T4 (THYROXINE) 4.8 mcg/dL (4.7-13.3); THYROID STIMULATING HORMONE 0.86 uIU/mL (0.36-3.74)
[2024-11-16] MEDS: INSULIN LISPRO 100 UNITS/ML SQ PRN (11:54)
[2024-11-16 11:55] LABS: GLUCOMETER DEV NAME(LOC) 3EX.2; GLUCOSE,POINT OF CARE 296 MG/DL (70-110)
[2024-11-16 16:26] LABS: GLUCOMETER DEV NAME(LOC) 3EX.2; GLUCOSE,POINT OF CARE 337 MG/DL (70-110)
[2024-11-16 17:20] LABS: GLUCOMETER DEV NAME(LOC) BV2S.; GLUCOSE,POINT OF CARE 292 MG/DL (70-110)
[2024-11-16 20:21] LABS: GLUCOMETER DEV NAME(LOC) 3EX.2; GLUCOSE,POINT OF CARE 382 MG/DL (70-110)
[2024-11-16 21:00] VITALS: BP 142/89; PULSE 72; RESP 18; TEMP 97.7; O2SAT 95
[2024-11-17 06:31] LABS: GLUCOMETER DEV NAME(LOC) 3EX.2; GLUCOSE,POINT OF CARE 226 MG/DL (70-110)
[2024-11-17 09:23] VITALS: BP 121/67; PULSE 73; RESP 18; TEMP 97.7; O2SAT 99
[2024-11-17 12:05] LABS: GLUCOMETER DEV NAME(LOC) 3EX.2; GLUCOSE,POINT OF CARE 360 MG/DL (70-110)
[2024-11-17 17:10] LABS: GLUCOMETER DEV NAME(LOC) 3E.I 2; GLUCOSE,POINT OF CARE 294 MG/DL (70-110)
[2024-11-17 20:46] LABS: GLUCOMETER DEV NAME(LOC) 3EX.2; GLUCOSE,POINT OF CARE 301 MG/DL (70-110)
[2024-11-17 23:26] VITALS: BP 136/78; PULSE 95; RESP 18; TEMP 98; O2SAT 98
[2024-11-18 05:36] LABS: GLUCOMETER DEV NAME(LOC) 3EX.2; GLUCOSE,POINT OF CARE 179 MG/DL (70-110)
[2024-11-18 08:35] VITALS: BP 131/90; PULSE 89; RESP 18; TEMP 97.8; O2SAT 97
[2024-11-18] MEDS ORDERED: OLAN7.5T22 PO (11:48)
[2024-11-18] MEDS ORDERED: LITH600C5 PO (11:48)
[2024-11-18] MEDS ORDERED: CHOL25TA4 PO (11:52)
[2024-11-18] MEDS ORDERED: ATOR40TA28 PO (11:52)
[2024-11-18] MEDS ORDERED: LEVO100 PO (11:53)
[2024-11-18] MEDS ORDERED: METF-1211 PO (11:54)
[2024-11-18 12:05] LABS: GLUCOMETER DEV NAME(LOC) 3EX.2; GLUCOSE,POINT OF CARE 247 MG/DL (70-110)
[2024-11-18 16:20] LABS: GLUCOMETER DEV NAME(LOC) 3EX.2; GLUCOSE,POINT OF CARE 297 MG/DL (70-110)
== END 2024-11-18 17:40 | disposition home or self-care (01) | DRG 885 ==
LOC: EMS 01:35 → B2X 08:26 → 3EX 21:06
PROVIDERS: ADMIT Psychiatry & Neurology Child & Adolescent Psychiatry; ATTEND Psychiatry & Neurology Child & Adolescent Psychiatry
PROC: GZ56ZZZ Individual Psychotherapy, Supportive (ICD-10-PCS; principal; 2024-11-15)
PROC: GZ58ZZZ Individual Psychotherapy, Cognitive-Behavioral (ICD-10-PCS; 2024-11-15)
DX: F25.0 Schizoaffective disorder, bipolar type (principal); Z20.822 Contact with and (suspected) exposure to COVID-19; I10 Essential (primary) hypertension; J44.9 Chronic obstructive pulmonary disease, unspecified; E66.9 Obesity, unspecified; K74.60 Unspecified cirrhosis of liver; K59.00 Constipation, unspecified; E03.9 Hypothyroidism, unspecified; G47.33 Obstructive sleep apnea (adult) (pediatric); E11.9 Type 2 diabetes mellitus without complications; E78.00 Pure hypercholesterolemia, unspecified; E87.6 Hypokalemia; F10.90 Alcohol use, unspecified, uncomplicated; Y90.9 Presence of alcohol in blood, level not specified; Z79.899 Other long term (current) drug therapy; Z88.8 Allergy status to other drugs, medicaments and biological substances; Z68.36 Body mass index [BMI] 36.0-36.9, adult
CPT/HCPCS: 80048; 80053; 80061; 80307; 81001; 82962; 83036; 84436; 84443; 85025; 87081; 99285; G0378; G0480

== ENCOUNTER 2025-02-06 13:07 | Emergency (ER) | payer MEDICARE, OTHER ==
[~2025-02-06] VITALS: Ht 172.7 cm; Wt 103.2 kg
[~2025-02-06 13:07] MED LIST changes: -ARIP400S3 IM; +ATOR40TA28 PO; -ATOR40TA71 PO; +CHOL25TA4 PO; -LITH300T45 PO; +LITH600C5 PO
[2025-02-06 13:21] VITALS: TEMP 98.1
[2025-02-06 14:03] LABS: PLATELET COUNT (AUTO) 123 K/uL (150-450); RED BLOOD CELL COUNT(AUTO) 3.75 MIL/uL (4.50-5.90); RED CELL DISTRIBUTION WIDTH 14.0 % (11.5-14.5); WHITE BLOOD COUNT (AUTO) 3.9 K/uL (4.5-11.0)
[2025-02-06 14:08] LABS: CALCIUM, TOTAL 8.5 mg/dL (8.8-10.5); CREATININE 1.02 mg/dL (0.60-1.30); GLOMERULAR FILTR. RATE CALC > 60 mL/min (>60); GLUCOSE,RANDOM 108 mg/dL (70-110); SODIUM SERUM 140 mmol/L (136-145); UREA NITROGEN, BLOOD 7 mg/dL (7-18)
[2025-02-06 14:15] LABS: ALCOHOL, BLOOD (SERUM) < 3 mg/dL (0-10)
[2025-02-06 14:16] LABS: ASPARTATE AMINOTRANSFERASE 22 U/L (15-37); TOTAL PROTEIN, SERUM 7.0 g/dL (6.4-8.2)
[2025-02-06 14:17] LABS: PH,URINE DRUG SCREEN 6.5 (5.0-8.0)
[2025-02-06 14:24] LABS: ALCOHOL, URINE DRUG SCREEN NEGATIVE (NEGATIVE); AMPHET/METH SCREEN,URINE NEGATIVE (NEGATIVE); BARBITURATE SCREEN, URINE NEGATIVE (NEGATIVE); CANNABINOID SCREEN,URINE NEGATIVE (NEGATIVE); COCAINE SCREEN,URINE NEGATIVE (NEGATIVE); METHADONE SCREEN, URINE NEGATIVE (NEGATIVE)
[2025-02-06] MEDS ORDERED: POLY17PO47 PO (15:19)
[2025-02-06] MEDS: PEG 3350/NA SULF,BICARB,CL/KCL 4000 ML SOLUTION PO ONE (15:22)
[2025-02-06 15:23] VITALS: BP 132/88; PULSE 75; RESP 16; O2SAT 99
== END 2025-02-06 15:26 | disposition home or self-care (01) ==
LOC: EMS 13:07
DX: K59.00 Constipation, unspecified (principal); E03.9 Hypothyroidism, unspecified; E11.9 Type 2 diabetes mellitus without complications; E78.00 Pure hypercholesterolemia, unspecified; F20.9 Schizophrenia, unspecified; F31.9 Bipolar disorder, unspecified; I10 Essential (primary) hypertension; J44.9 Chronic obstructive pulmonary disease, unspecified; Z87.891 Personal history of nicotine dependence; Z98.890 Other specified postprocedural states; Z79.899 Other long term (current) drug therapy
CPT/HCPCS: 99283; 80048; 80076; 85025; 36415; 80307; G0480

== ENCOUNTER 2025-02-18 16:34 | Inpatient (IN) | payer MEDICARE, MEDICAID ==
[~2025-02-18] VITALS: Ht 172.7 cm; Wt 100.3 kg
[~2025-02-18 16:34] MED LIST changes: +POLY17PO47 PO
[2025-02-18 17:13] VITALS: O2SAT 98
[2025-02-18 17:36] LABS: GLUCOMETER DEV NAME(LOC) ER.7; GLUCOSE,POINT OF CARE 145 MG/DL (70-110)
[2025-02-18 17:56] LABS: PLATELET COUNT (AUTO) 129 K/uL (150-450); RED BLOOD CELL COUNT(AUTO) 3.80 MIL/uL (4.50-5.90); RED CELL DISTRIBUTION WIDTH 15.0 % (11.5-14.5); WHITE BLOOD COUNT (AUTO) 5.2 K/uL (4.5-11.0)
[2025-02-18 18:11] LABS: CALCIUM, TOTAL 9.1 mg/dL (8.8-10.5); CREATININE 0.73 mg/dL (0.60-1.30); GLOMERULAR FILTR. RATE CALC > 60 mL/min (>60); GLUCOSE,RANDOM 138 mg/dL (70-110); SODIUM SERUM 145 mmol/L (136-145); UREA NITROGEN, BLOOD 6 mg/dL (7-18)
[2025-02-18 18:23] LABS: APPEARANCE,URINE CLEAR (CLEAR); GLUCOSE, URINE (UA) NEGATIVE (NEGATIVE); LEUKOCYTE ESTERASE ,URINE NEGATIVE (NEGATIVE); NITRATE,URINE NEGATIVE (NEGATIVE); OCCULT BLOOD,URINE NEGATIVE (NEGATIVE); PH,URINE DRUG SCREEN 6.5 (5.0-8.0); SPECIFIC GRAVITIY, URINE 1.013 (1.003-1.030)
[2025-02-18 18:53] LABS: ALCOHOL, URINE DRUG SCREEN NEGATIVE (NEGATIVE); AMPHET/METH SCREEN,URINE NEGATIVE (NEGATIVE); BARBITURATE SCREEN, URINE NEGATIVE (NEGATIVE); CANNABINOID SCREEN,URINE NEGATIVE (NEGATIVE); COCAINE SCREEN,URINE NEGATIVE (NEGATIVE); METHADONE SCREEN, URINE NEGATIVE (NEGATIVE)
[2025-02-18 19:14] LABS: SQUAMOUS EPITHELIAL CELL,UR Rare /LPF (None Seen)
[2025-02-18] MEDS: PERMETHRIN 5% 60 GM CREAM TP ONE (19:42)
[2025-02-18 19:52] LABS: COVID AG,FIA SOURCE NASAL SWAB
[2025-02-18 20:22] LABS: SARS-COV2 (COVID) ANTIGEN,FIA Negative (Negative)
[2025-02-18 20:55] LABS: APPEARANCE,URINE CLEAR (CLEAR); GLUCOSE, URINE (UA) NEGATIVE (NEGATIVE); LEUKOCYTE ESTERASE ,URINE NEGATIVE (NEGATIVE); NITRATE,URINE NEGATIVE (NEGATIVE); OCCULT BLOOD,URINE NEGATIVE (NEGATIVE); PH,URINE DRUG SCREEN 6.5 (5.0-8.0); SPECIFIC GRAVITIY, URINE 1.010 (1.003-1.030)
[2025-02-18 21:02] LABS: ALCOHOL, URINE DRUG SCREEN NEGATIVE (NEGATIVE); AMPHET/METH SCREEN,URINE NEGATIVE (NEGATIVE); BARBITURATE SCREEN, URINE NEGATIVE (NEGATIVE); CANNABINOID SCREEN,URINE NEGATIVE (NEGATIVE); COCAINE SCREEN,URINE NEGATIVE (NEGATIVE); METHADONE SCREEN, URINE NEGATIVE (NEGATIVE)
[2025-02-19 00:19] VITALS: BP 126/75; PULSE 76; RESP 18; TEMP 97.5; O2SAT 99
[2025-02-19] MEDS: ZOLPIDEM TARTRATE 10 MG TABLET PO PRN (00:41)
[2025-02-19] MEDS ORDERED: -PHARMACY VACCINE NOTE- MISC ONE (04:00)
[2025-02-19 07:11] LABS: PLATELET COUNT (AUTO) 127 K/uL (150-450); RED BLOOD CELL COUNT(AUTO) 3.81 MIL/uL (4.50-5.90); RED CELL DISTRIBUTION WIDTH 14.5 % (11.5-14.5); WHITE BLOOD COUNT (AUTO) 4.1 K/uL (4.5-11.0)
[2025-02-19 07:33] LABS: ASPARTATE AMINOTRANSFERASE 36 U/L (15-37); CALCIUM, TOTAL 8.8 mg/dL (8.8-10.5); CHOL/HDL RATIO 2.3 (4.2-7.3); CREATININE 0.70 mg/dL (0.60-1.30); GLOMERULAR FILTR. RATE CALC > 60 mL/min (>60); GLUCOSE,RANDOM 181 mg/dL (70-110); LDL CHOL (CALC.) 50 mg/dL (0-130); SODIUM SERUM 143 mmol/L (136-145); TOTAL PROTEIN, SERUM 7.2 g/dL (6.4-8.2); UREA NITROGEN, BLOOD 5 mg/dL (7-18)
[2025-02-19 09:19] VITALS: BP 127/77; PULSE 78; RESP 18; TEMP 97.3; O2SAT 100
[2025-02-19] MEDS: QUEtiapine FUMARATE 300 MG ER TABLET PO SCH (13:56)
[2025-02-19] MEDS: ARIPiprazole ER SUSPENSION 400 MG PRE-FILLED DUAL CHAMBER SYRINGE IM SCH (13:57)
[2025-02-19] MEDS ORDERED: MAGNESIUM HYDROXIDE SUSPENSION 30 ML UDCUP PO PRN (14:15)
[2025-02-19] MEDS ORDERED: ONDANSETRON 4 MG TABLET PO PRN (14:15)
[2025-02-19] MEDS ORDERED: ACETAMINOPHEN 325 MG TABLET PO PRN (14:15)
[2025-02-19] MEDS ORDERED: DOCUSATE SODIUM 100 MG CAPSULE PO PRN (14:15)
[2025-02-19] MEDS ORDERED: PETROLATUM,WHITE 28 GM JELLY TP PRN (14:15)
[2025-02-19] MEDS ORDERED: ALBUTEROL SULFATE HFA 90 MCG/PUFF 8 GM INHALER IH PRN (14:15)
[2025-02-19] MEDS ORDERED: NICOTINE 14 MG/24 HOUR PATCH TD PRN (14:15)
[2025-02-19] MEDS ORDERED: LOPERAMIDE HCL 2 MG CAPSULE PO PRN (14:15)
[2025-02-19] MEDS ORDERED: MAG HYDROX/ALUMINUM HYD/SIMETH ES 30 ML SUSPENSION UDCUP PO PRN (14:15)
[2025-02-19] MEDS ORDERED: GuaiFENesin/D-METHORPHAN [SUGAR-FREE] 200-20MG/10 ML SYRUP UDCUP PO PRN (14:15)
[2025-02-19] MEDS ORDERED: IBUPROFEN 400 MG TABLET PO PRN (14:15)
[2025-02-19 20:57] VITALS: BP 101/71; PULSE 71; RESP 18; TEMP 97.6; O2SAT 99
[2025-02-19] MEDS: ATORVASTATIN CALCIUM 40 MG TABLET PO SCH (21:07)
[2025-02-20] MEDS: LEVOTHYROXINE SODIUM 100 MCG TABLET PO SCH (06:52)
[2025-02-20 07:53] LABS: CHOL/HDL RATIO 2.8 (4.2-7.3); LDL CHOL (CALC.) 38.0 mg/dL (0-130)
[2025-02-20] MEDS: POLYETHYLENE GLYCOL 3350 17 GM PACKET PO SCH (08:37)
[2025-02-20 11:54] VITALS: BP 121/63; PULSE 88; RESP 17; TEMP 97.5; O2SAT 99
[2025-02-20 21:26] VITALS: BP 118/76; PULSE 79; RESP 19; TEMP 98; O2SAT 98
[2025-02-21 08:00] VITALS: BP 143/78; PULSE 80; RESP 16; TEMP 97.7; O2SAT 100
[2025-02-21 22:07] VITALS: BP 132/83; PULSE 71; RESP 17; TEMP 98; O2SAT 98
[2025-02-22 13:01] VITALS: BP 122/69; PULSE 79; RESP 18; TEMP 97.2
[2025-02-22 22:11] VITALS: BP 128/72; PULSE 71; RESP 17; TEMP 97.9; O2SAT 97
[2025-02-23 14:09] VITALS: BP 139/77; PULSE 87; RESP 17; TEMP 97.5
[2025-02-23 22:34] VITALS: BP 131/80; PULSE 82; RESP 19; TEMP 97.8; O2SAT 98
[2025-02-24] MEDS ORDERED: GLIP5TAB15 PO (13:48)
[2025-02-24] MEDS ORDERED: ATOR40TA71 PO (13:48)
[2025-02-24] MEDS ORDERED: METF-1211 PO (13:48)
[2025-02-24] MEDS ORDERED: LEVO100 PO (13:48)
[2025-02-24] MEDS ORDERED: ARIP400S3 IM ×2 (14:30→16:09)
[2025-02-24] MEDS ORDERED: QUET300T5 PO (14:30)
[2025-02-24] MEDS ORDERED: QUET300T91 PO (16:09)
[2025-02-24 18:51] VITALS: BP 122/68; PULSE 97; RESP 18; TEMP 97.7; O2SAT 99
== END 2025-02-24 19:03 | disposition home or self-care (01) | DRG 885 ==
LOC: EMS 16:34 → 3EI 23:21
PROVIDERS: ADMIT Psychiatry & Neurology Psychiatry; ATTEND Psychiatry & Neurology Psychiatry
PROC: GZ56ZZZ Individual Psychotherapy, Supportive (ICD-10-PCS; 2025-02-19)
PROC: GZ58ZZZ Individual Psychotherapy, Cognitive-Behavioral (ICD-10-PCS; 2025-02-19)
PROC: GZ52ZZZ Individual Psychotherapy, Cognitive (ICD-10-PCS; 2025-02-20)
PROC: GZHZZZZ Group Psychotherapy (ICD-10-PCS; principal; 2025-02-22)
DX: F25.1 Schizoaffective disorder, depressive type (principal); G47.33 Obstructive sleep apnea (adult) (pediatric); R45.851 Suicidal ideations; J44.9 Chronic obstructive pulmonary disease, unspecified; E78.5 Hyperlipidemia, unspecified; I10 Essential (primary) hypertension; E11.9 Type 2 diabetes mellitus without complications; E87.6 Hypokalemia; E03.9 Hypothyroidism, unspecified; E66.9 Obesity, unspecified; B86 Scabies; E55.9 Vitamin D deficiency, unspecified; K74.60 Unspecified cirrhosis of liver; F10.20 Alcohol dependence, uncomplicated; Y90.9 Presence of alcohol in blood, level not specified; F41.9 Anxiety disorder, unspecified; Z20.822 Contact with and (suspected) exposure to COVID-19; Z68.33 Body mass index [BMI] 33.0-33.9, adult; Z79.899 Other long term (current) drug therapy
CPT/HCPCS: 80048; 80053; 80061; 80307; 81001; 81003; 82962; 83036; 84436; 84443; 85025; 87081; 99285; J0401